=== PATIENT | female | born 1960 | race Caucasian/White ===

== ENCOUNTER → 2017-12-16 15:11 | Outpatient (CLI) | payer BC, SELFPAY ==
[2017-12-24 10:52] LABS: HPV APTIMA, High Risk Negative (Negative)
== END ==
PROVIDERS: Family Provider Student in an Organized Health Care Education/Training Program; PCP Student in an Organized Health Care Education/Training Program; Visit Provider Nurse Practitioner Women's Health
DX: Z12.4 Encounter for screening for malignant neoplasm of cervix (principal)
CPT/HCPCS: 88175; G0145

== ENCOUNTER → 2018-02-01 09:40 | Outpatient (CLI) | payer BC, SELFPAY ==
[2018-02-01 17:16] LABS: Color, Urine Yellow (Yellow); Glucose, Dipstick Normal (Normal); Ketone-Dipstick Negative (Negative); Leukocyte Esterase-Dipstick 500 /ul (Negative); Nitrite-Dipstick Positive (Negative); Occult Blood-Urine Negative /ul (Negative); Protein-Dipstick Negative (Negative); Urine Bilirubin Dipstick Negative (Negative); Urine Clarity Sl. Cloudy (Clear); Urine Urobilinogen Normal (Normal)
== END ==
PROVIDERS: Family Provider Student in an Organized Health Care Education/Training Program; PCP Student in an Organized Health Care Education/Training Program; Visit Provider Nurse Practitioner Women's Health
DX: R30.0 Dysuria (principal)
CPT/HCPCS: 81002; 87086; 87088

== ENCOUNTER → 2019-09-02 15:55 | Outpatient (CLI) | payer BC, SELFPAY ==
--- NOTE | 2019-09-02 | IMM_PTH ---
PATIENT: DOREEN ZAIDI LOC: [facility] U#:[id number] AGE/SX: 65/F ROOM: RE09/02/[address]: Dr. Gallo Arceo MD : 1960 BED: DIS: SPEC #: [id number] RECD: 09/06/19 11:33 STATUS: CLEMENTE REQ #: [id number] BOB: 09/02/19 00:[address]: Gallo Arceo DEPT: IMMUNOHISTOCHEMISTRY RECD BY: Trena Woodard ENTERED: 09/06/19 11:34 SP TYPE: IMMUNO OTHR DR: Dr. Ham Martinez DO Tissues: Right breast, NOS Procedures: CALPONIN-1 (add) CK5-6 (add) CK8 (add) STERN-2 (add) E-CAD (add) HER2 DELMY (add) KI-67 (add) P53 (add) PA (add) P40 (add) ER (initial) PHYSICIAN & INSTITUTION [address] [address] SPECIMEN INFORMATION: Tissue Source: Right breast, ultrasound guided needle core biopsy Clinical Info: Abnormal mammogram right breast Specimen Number: [id number] CPT code: 37112, 60319 x7, 06216 x3 METHODOLOGY: Deparaffinized sections of prefer/formalin-fixed tissue or PAP/DQ stained slides are incubated with monoclonal/polyclonal antibodies/oligonucleotide probes. Localization is made via biotin free immunoperoxidase method. Appropriate controls are performed and reacted as expected. Results on target cell population are indicated in the following table: RESULTS: ANTIBODY / CLONE RESULT P53 (DO-7) positive, >95% Ki-67 (30-9) positive, 90% CK8 (15kryaR60) positive CK5-6 (D5 & 1684) positive, focal Calponin-1 (EW038F) negative P40 (BC28) negative E-Cad (ECH-6) positive STERN-2 (SP21) positive MORPHOMETRIC ANALYSIS ER (clone 6F11) 4% dim PA (clone 16/1E2) 0% Her-2Neu (clone CB11) 0 The prognostic test for HER2 is performed on formalin-fixed paraffin embedded tissue. A 3+ (positive) staining pattern is defined as intense, homogeneous, complete, circumferential membranous staining in >10% of contiguous tumor cells. A similar weak (2+) staining pattern is interpreted as equivocal. LES follow-up testing is recommended for all equivocal cases. Positivity/negativity for ER/PA is reported if > or < 1% of the tumor cells are immuno- reactive, respectively. The ASCO/CAP criteria is used for scoring. Reference: Journal of Clinical Oncology, 2013; 31:5646-2109 & 2010; 16:6830-7899. Duration of fixation: 76.5 Hrs; Sample Adequate: Yes. These assays have not been validated on decalcified tissues. Results should be interpreted with caution given the likelihood of false negativity on decalcified specimens. These tests were developed and their performance characteristics determined by [facility]. They may not have been cleared or approved by the U.S. Food and Drug Administration. The FDA has determined that such clearance or approval is not necessary. The above immunohistochemical/dualISH markers are ordered and reviewed by the Pathologist. 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 Positive for estrogen receptors (favorable prognostic indicator). Negative for progesterone receptors (unfavorable prognostic indicator). Negative for overexpression of WAS7cps. AM:berta 09/07/19
--- NOTE | 2019-09-02 | BRBX_PTH ---
PATIENT: DOREEN ZAIDI LOC: [facility] U#:[id number] AGE/SX: 65/F ROOM: RE09/02/[address]: Dr. Gallo Arceo MD : 1960 BED: DIS: SPEC #: [id number] RECD: 09/02/19 15:35 STATUS: CLEMENTE GAYLE #: [id number] BOB: 09/02/19 00:[address]: Gallo Arceo DEPT: SURGICAL PATHOLOGY RECD BY: Carlyn Parker ENTERED: 09/05/19 12:09 SP TYPE: BREAST BX OTHR DR: Dr. Ham Martinez DO Tissues: Right breast, NOS Procedures: Surgery Specimen Level IV HEADER OPERATION: Ultrasound-guided needle core biopsy right breast PRE-OP DIAGNOSIS: Abnormal mammogram right breast TISSUE SUBMITTED: Right breast biopsy ISCHEMIC TIME: <1 minute FIXATION TIME: 76.5 hours MICROSCOPIC DIAGNOSIS Right breast, ultrasound-guided needle core biopsy: Invasive ductal carcinoma. Nuclear grade - 3/3 Maximal length - 13 mm Other findings - tumor necrosis AM:berta 09/06/19 COMMENT ER/AZ/Bsb9qhk studies are being performed on sections of tumor and the results from this study will be reported separately ([id number]). Reference is made to the patient's previous right breast lumpectomy from 2004 ([id number]) in which invasive, grade 3/3, poorly differentiated ductal carcinoma was identified. Case has been reviewed in consultation with Dr. Rain who concurs with the above diagnosis. IDC:SJ MICROSCOPIC DESCRIPTION Slides are reviewed. GROSS DESCRIPTION Received is one container labeled with the patient's name and not further designated. The specimen consists of two elongated fragments of hoffmann tissue with an average length of 1.5 cm and maximal diameter of 0.1 cm. The specimen is totally submitted in one cassette. / AM:berta 09/05/19 TC:0 CPT: 96400
[2019-09-02 14:41] VITALS: BMI 27.8
== END ==
PROVIDERS: PCP Student in an Organized Health Care Education/Training Program; Referring Provider Surgery; Visit Provider Surgery
DX: R92.8 Other abnormal and inconclusive findings on diagnostic imaging of breast (principal)
CPT/HCPCS: 88305; 88341; 88342

== ENCOUNTER → 2019-09-19 10:13 | Outpatient (CLI) | payer BC, SELFPAY ==
[2019-09-02 14:41] VITALS: BMI 27.8
--- NOTE | 2019-09-19 10:15 | MRI_ITS ---
STUDY: BILATERAL BREAST MR WITHOUT AND WITH CONTRAST REASON FOR EXAM: Female, 59 years old. RIGHT BREAST CA -- hx rt breast ca 2004 with lumpectomy, now reoccurring breast ca, rt bx 08/2019 TECHNIQUE: Multi-sequence multi-echo imaging of both breasts was performed with a dedicated breast coil. T1-weighted and T2-weighted images were performed before the administration of contrast. T1-weighted images were also performed after the administration of IV dotarem 14ml without complications. COMPARISON: Mammograms dated 05/24/2018, 04/20/2019 and breast ultrasound dated 04/20/2019, 05/24/2019 and 08/24/2019 FINDINGS: RIGHT BREAST: The breast tissue is scattered fibroglandular densities with no background enhancement. There is a 2.5 cm abnormal enhancing mass in the superior outer aspect of the right breast located approximately 6 cm from the nipple. This does correlate to the area that was biopsied and shown to represent a malignancy. No other abnormal enhancing or abnormal morphologically appearing masses are seen in the right breast. LEFT BREAST: The breast tissue is heterogeneously dense with no background enhancement. There are no abnormal enhancing masses or areas of non-mass enhancement in the left breast. There are no enlarged or abnormal lymph nodes. There is no abnormality in the visualized regions of the chest or liver. MRI/Breast Bilateral W/O and W IMPRESSION: There is a known malignancy in the right breast. Surgical consultation is recommended as well as radiation oncology and medical oncology consultation. Short-term six-month follow-up mammogram is recommended if the patient and the surgeon opt to do a lumpectomy. CATEGORY: BIRADS Category 6: Known Biopsy-Proven Malignancy - Appropriate Action Should Be Taken. A letter regarding these results will be sent to the patient by the facility within 30 days. Electronically Signed: Radha Roberto DO at 13:17 EST Tel , Service support ,
== END ==
PROVIDERS: PCP Student in an Organized Health Care Education/Training Program; Referring Provider Surgery; Visit Provider Surgery
DX: C50.911 Malignant neoplasm of unspecified site of right female breast (principal)
CPT/HCPCS: 77049; A9575; A4216; C8908

== ENCOUNTER 2019-10-11 13:10 | Observation (INO) | payer BC, SELFPAY ==
[2019-09-27 15:21] VITALS: BMI 27.8
[2019-10-05 09:51] VITALS: BMI 27.8
--- NOTE | 2019-10-07 13:20 | RAD_ITS ---
STUDY: X-RAY CHEST REASON FOR EXAM: Female, 59 years old. pre operative eval, patient having right mastectomy, Hx radiation therapy years ago on right side of chest. Patient has no current chest complaints TECHNIQUE: PA and lateral views of the chest. COMPARISON: None. FINDINGS: The lungs are clear and expanded. There is no demonstrated pleural abnormality. Normal size heart. Normal mediastinum and sonny. Normal visualized pulmonary arteries. There is atherosclerotic calcification of the aortic arch with tortuosity. Normal visualized thoracic spine. Normal visualized ribs, clavicles, and shoulders. There is no demonstrated abnormality of the visualized soft tissue structures of the upper abdomen. RAD/Chest PA and Lateral IMPRESSION: Normal x-ray examination of the chest for age. Electronically Signed: Krystin Moreno MD at 1:39 EDT , Service support ,
--- NOTE | 2019-10-07 13:21 | EKG12_ITS ---
Test Reason : PREOP Blood Pressure : / mmHG Vent. Rate : 064 BPM Atrial Rate : 064 BPM P-R Int : 168 ms QRS Dur : 092 ms QT Int : 406 ms P-R-T Axes : 044 013 004 degrees QTc Int : 418 ms Normal sinus rhythm Normal ECG Confirmed by KRISTIN DIAZ, LILY ([id number]), acquisition editor VINNY SOUZA ([id number]) on 10/10/2019 1:53:08 PM Referred By: Gallo Arceo Confirmed By:CATHERINE FOSTER MD
[2019-10-07 15:23] LABS: Hematocrit 40.1 % (37-47); Mean Corp Hgb Conc 32.4 g/dL (32-36); Mean Corpuscular Hgb 29.7 pg (27.0-32.0); Mean Corpuscular Volume 91.6 fL (81-99); Platelet Count 177 K/mm3 (150-450); RBC Distribution Width CV 12.4 % (11.6-14.6); RBC Distribution Width SD 41.5 fl (35.1-43.9); Red Blood Count 4.38 M/mm3 (4.2-5.4); White Blood Count 4.9 K/mm3 (4.4-11.0)
[2019-10-07 15:24] LABS: AST(SGOT) 19 U/L (15-37); Albumin, Serum 3.9 g/dL (3.2-5.0); Alkaline Phosphatase 75 U/L (45-117); Globulin 3.7 g/dL (2.2-4.2); Protein, Total 7.6 g/dL (6.4-8.2)
[2019-10-07 15:25] LABS: Alanine Aminotransfer ALT/SGPT 35 U/L (13-56); Bilirubin, Direct 0.12 mg/dL (0.00-0.30)
[2019-10-07 15:29] LABS: Partial Thromboplast Time 27.1 Seconds (24.1-36.2)
[2019-10-11] VITALS (12 sets, daily range): BP systolic 108–141; BP diastolic 68–89; PULSE 59–102; RESP 14–18; TEMP 36.3–37.2; O2SAT 96–100; BMI 27.6
--- NOTE | 2019-10-11 | IMM_PTH ---
PATIENT: DOREEN ZAIDI LOC: [facility] U#:[id number] AGE/SX: 59/F ROOM: MS315 RE10/11/[address]: Dr. Gallo Arceo MD : 1960 BED: 1 DIS: 10/12/2019 SPEC #: [id number] RECD: 10/14/19 12:44 STATUS: SOUT REQ #: [id number] BOB: 10/11/19 00:[address]: Gallo Arceo DEPT: IMMUNOHISTOCHEMISTRY RECD BY: Trena Woodard ENTERED: 10/14/19 12:45 SP TYPE: IMMUNO OTHR DR: DO Dr. Hood Huang MD Tissues: A - Axillary lymph node, NOS Procedures: CK7 (add) Pankeratin (initial) Pankeratin (add) PHYSICIAN & INSTITUTION [place] [address] SPECIMEN INFORMATION: Tissue Source: A - Right axillary sentinel lymph nodes Clinical Info: Recurrent cancer right breast Specimen Number: [id number] A1-A5 CPT code: 57555, 14643 x9 METHODOLOGY: Deparaffinized sections of prefer/formalin-fixed tissue or PAP/DQ stained slides are incubated with monoclonal/polyclonal antibodies/oligonucleotide probes. Localization is made via biotin free immunoperoxidase method. Appropriate controls are performed and reacted as expected. Results on target cell population are indicated in the following table: RESULTS: ANTIBODY / CLONE RESULT Block A1 AE1-3 (AE1/AE3/PCK26) negative CK7 (OV-TL12/30) negative Block A2 AE1-3 (AE1/AE3/PCK26) negative CK7 (OV-TL12/30) negative Block A3 AE1-3 (AE1/AE3/PCK26) negative CK7 (OV-TL12/30) negative Block A4 AE1-3 (AE1/AE3/PCK26) negative CK7 (OV-TL12/30) negative Block A5 AE1-3 (AE1/AE3/PCK26) negative CK7 (OV-TL12/30) negative These tests were developed and their performance characteristics determined by [facility]. They may not have been cleared or approved by the U.S. Food and Drug Administration. The FDA has determined that such clearance or approval is not necessary. The above immunohistochemical/dualISH markers are ordered and reviewed by the Pathologist. INTERPRETATION: A. Right axillary sentinel lymph nodes, biopsy: Three out of three lymph nodes, negative for carcinoma. AM:berta 10/17/19
--- NOTE | 2019-10-11 | AXNB_PTH ---
PATIENT: DOREEN ZAIDI LOC: [facility] U#:[id number] AGE/SX: 59/F ROOM: MS315 RE10/11/[address]: Dr. Gallo Arceo MD : 1960 BED: 1 DIS: 10/12/2019 SPEC #: [id number] RECD: 10/11/19 11:09 STATUS: CLEMENTE REMarybel #: [id number] BOB: 10/11/19 00:[address]: Gallo Arceo DEPT: SURGICAL PATHOLOGY RECD BY: Trena Woodard ENTERED: 10/11/19 11:31 SP TYPE: AX NODE BX OTHR DR: DO Dr. Hood Huang MD Tissues: A - Axillary lymph node, NOS B - Right breast, NOS Procedures: Frozen Section (charge) Surgery Specimen Level V Surgery Specimen Level HEADER OPERATION: Modified radical mastectomy and radiotracer identification PRE-OP DIAGNOSIS: Recurrent cancer of right breast C50.911 TISSUE SUBMITTED: A - Right axillary lymph nodes frozen section at 1101, B - Right breast FROZEN SECTION DIAGNOSIS A. Right axillary sentinel lymph nodes, biopsy: Two out of two lymph nodes negative for carcinoma. AM:berta 10/11/19 Case has been reviewed in consultation with Dr. Rain who concurs with the above diagnosis. IDC:SJ MICROSCOPIC DIAGNOSIS A. Right axillary sentinel lymph nodes, biopsy: Three out of three lymph nodes, negative for metastatic carcinoma. B. Right breast, mastectomy: Invasive poorly differentiated ductal carcinoma. See cancer check list below. AM:berta 10/17/19 COMMENT INVASIVE BREAST CANCER SUMMARY: Procedure: Mastectomy Specimen: Type: Total breast Size: 17 x 15 x 5 cm Laterality: Right breast Invasive Tumor: Size of tumor: 2.5 x 2 x 2 cm Focality: Single focus of invasive tumor Histologic type: Invasive ductal carcinoma. Histologic grade (Sri grade): Glandular/tubular differentiation score: 3 Nuclear pleomorphism score: 3 Mitotic count score: 3 Overall grade: 3 (score of 9/9) Lymph-vascular invasion: Not identified Ductal Carcinoma In Situ: Not identified Lobular Carcinoma In Situ: Not identified Tumor extension: Skin: Free of carcinoma Nipple: Free of carcinoma Skeletal muscle: Free of carcinoma Margins Involved by Invasive Carcinoma: None Distance from closest margin: 1.5 mm from superior margin Margins Involved by In Situ Carcinoma: Not applicable Lymph Nodes: Number of sentinel lymph nodes examined: 3 Total number of lymph nodes examined: 10 One non-sentinel lymph node with macrometastatic carcinoma (2.1 cm in greatest dimension). No extranodal extension identified. See specimen A for sentinel lymph nodes. Microcalcifications: Not identified Treatment Effect: Unknown Additional Pathologic Findings: Extensive tumor necrosis Ancillary Studies: Previously performed on same tumor ([id number]) ER: positive (4%, dim) CO: negative (0%) Nqh3vxr: negative (0) Clinical History: Mass of breast Pathologic Stage: pT2 N1a Mx The above summary is in compliance with [employer] [place] [employer] (CAP) Cancer Protocols Checklist and [place] Joint Committee on Cancer (AJCC), Staging Manual, 8th Ed. MICROSCOPIC DESCRIPTION Slides are reviewed. GROSS DESCRIPTION A - Received fresh for frozen section diagnosis labeled with the patient's name is a specimen designated right axillary sentinel lymph node. The specimen consists of a piece of fibroadipose tissue measuring 6 x 6 x 1.5 cm. Two nodules consistent with lymph nodes are identified and one possible lymph node is also identified measuring 1 to 3 cm in greatest dimension. The lymph nodes are submitted for frozen section diagnosis as follows: 1 & 2 - one bisected lymph node, 3 & 4 - one bisected lymph node, 5 - one possible lymph node. / SJ:berta 10/11/19 B - Received in fixative is one container labeled with the patient's name and designated right breast. The specimen consists of a mastectomy specimen consisting of breast tissue with overlying skin including nipple and areolar complex. The breast tissue measures 17 x 15 x 5 cm. The skin ellipse measures 17 x 8 cm. The nipple measures 1 cm in greatest dimension. The specimen is inked as follows: superior - black, inferior - green, medial - red, lateral - orange and posterior - blue. Also present in the container are three pieces of fibroadipose tissue measuring in aggregate 5 x 7 x 2 cm. Sections of the breast tissue reveal a hoffmann, nodular mass in the upper outer quadrant measuring 2.5 x 2 x 2 cm. This mass is 0.2 cm away from the closest superior margin and 0.5 cm away from the second closest posterior margin. Sections of the tumor mass reveal it is 0.5 cm away from the overlying skin piece. / SJ:berta 10/11/19 Three detached pieces of tissue, one of them appears to consist of breast tissue which measures in aggregate 5 x 4 x 2 cm. Sections do not reveal any mass lesion. According to the surgeon, one piece consists of new superior margin. The two detached piece appears to consist of axillary tail and measures 5 x 3.5 x 1 cm. Sections of the axillary tail reveal multiple nodules consistent with lymph nodes. The largest lymph node measures 1 cm in greatest dimension. Sections of the largest lymph node reveal gross involvement by tumor. Communications Manager sections are submitted as follows: 1 - detached pieces of tissue consistent with new superior margin, 2 & 3 - multiple lymph nodes, 4 - one bisected lymph node, 5??axillary tail, one bisected lymph node, largest lymph node, 5 - multiple lymph nodes, 6 - nipple, entirely submitted, 7 - perpendicular inferior and posterior margin, 8 - perpendicular medial and lateral margin, 912 - tumor (9 - tumor with overlying skin piece, 10-12 - tumor with closest superior margin, 1315 - registration representative sections away from the tumor. Sections will be submitted after additional fixation. / SJ:berta 10/12/19 TC:0 CPT: 95245, 64026, 83264
--- NOTE | 2019-10-11 07:25 | NM_ITS ---
PROCEDURE: NUCLEAR MEDICINE Injection [place] Node - RIGHT breast(s). REASON FOR EXAM: Female, 59 years old. History of right breast cancer. TECHNIQUE: [place] node localization using radionuclide methods of the RIGHT breast(s) was performed following subcutaneous administration of 1.1 mCi of of sulfur colloid Tc-99m. FINDINGS: 1.1 mCi of technetium labeled sulfur colloid was injected subcutaneously in 4 equal aliquots in the upper outer aspect of the right breast. NM/Lymph Node Injection Only IMPRESSION: Subcutaneous injection of 1.1 mCi of technetium labeled sulfur colloid in the upper outer quadrant of the right breast for sentinel node imaging. Electronically Signed: Jr Lynne, at 11:01 EDT , Service support ,
[2019-10-11 07:45] LABS: Magnesium 2.3 mg/dL (1.6-2.6)
[2019-10-11] MEDS: Lactated Ringers 1,000 ML 40 ML IV ×2 (08:03→13:19)
[2019-10-11] MEDS: Gabapentin 600 MG Tablet PO (08:05)
[2019-10-11] MEDS: Scopolamine 1mg/72hr Patch 1 PATCH TRANSDERM. (08:05)
[2019-10-11] MEDS: Acetaminophen 500 MG Tablet 1000 MG PO (08:05)
[2019-10-11 08:56] LABS: Bedside Glucose 73 mg/dL (70-110)
--- NOTE | 2019-10-11 09:35 | HP.PCM_ITS ---
History and Physical Date of Admission: 10/11/19 [facility] [address] [place] [address] OFFICE VISIT Date of Service: 09/23/19 MR#: [id number] Acct: [id number] Name: DOREEN ZAIDI Rep #: [id number] : 1960 Provider: Gallo hammond MD Age/Sex: 59/F Location: [facility] Status: Signed Intake Vital Signs 09/25/19 BMI 27.8 09/23/19 Height 5 ft 4.5 in 09/23/19 Weight: 158 lb 09/23/19 BMI 26.6 09/23/19 BP 143/88 H 09/23/19 Blood Pressure Location Rt brachial 09/23/19 Position Sitting 09/23/19 Respiration 18 09/23/19 Pulse 70 09/23/19 Pulse Source Monitor 09/23/19 Temp 98.5 F 09/23/19 Temp Source Oral 09/23/19 Pulse Oximetry (%) 99 09/23/19 Oxygen Delivery Method room air Intake Visit Reasons: Discuss Breast MRI results/ Schedule Surgery Apprise Counselor Required: No Is patient in pain?: No Allergies adhesive Allergy (Verified 09/23/19 10:46) Rash Penicillins Allergy (Verified 09/23/19 10:46) Unknown nitrofurantoin [From Macrobid] Adverse Reaction (Verified 09/23/19 10:46) Other nitrofurantoin macrocrystalline [From Macrobid] Adverse Reaction (Verified 09/23/19 10:46) Other Medications krill oil 500 mg capsule mg PO cap 12/21/18 [History Confirmed 09/23/19] lactobacillus combination no.8 3 billion cell capsule 3,000 mmu cells PO DAILY 12/21/18 [History Confirmed 09/23/19] calcium carbonate 500 mg calcium (1,250 mg) tablet 500 mg PO DAILY 08/31/19 [History Confirmed 09/23/19] clonazepam 0.5 mg tablet 0.5 mg PO DAILY PRN 08/31/19 [History Confirmed 09/23/19] sertraline 50 mg tablet 50 mg PO DAILY 08/31/19 [History Confirmed 09/23/19] lorazepam 2 mg tablet 2 mg PO DAILY PRN #1 tab 09/08/19 [Rx Confirmed 09/23/19] PFSH Medical History Anemia (Acute) Anxiety (Acute) Depression (Acute) Hx of breast cancer (Acute) Breast cancer (Acute) Surgical History Hx of right breast biopsy (Acute) S/P oophorectomy (Resolved) S/P dilation and curettage (Resolved) Status post right breast lumpectomy (Resolved) S/P (Resolved) Family History Sister Melanoma Father Myocardial infarction Asthma Social History (Updated 09/25/19 @ 09:[address] 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 Patient is status post an ultrasound-guided needle core biopsy of her right breast which was located in the upper outer quadrant. This was completed on 09/02/2019. This came back as an invasive ductal carcinoma. ER's were 4% MO were 0 HER-2/johanna was 0. The MRI showed a 2.5 cm enhancing mass in the upper outer quadrant of her breast which was biopsied to confirm the breast cancer. There was no other lymph nodes that looked abnormal and her liver look normal and her chest looked normal. There was no other abnormalities identified on the other side. ROS General General: Yes breast cancer; no weight change, appetite, fatigue, colon cancer or weakness HEENT HEENT: No difficulty swallowing, eye injury, eye surgery, swollen glands or hoarseness Endo Endocrine: No thyroid disease, diabetes mellitus, thyroid cancer, Hair loss, heat intolerance or cold intolerance Skin Skin: No rash or changing moles Breast Breast: Yes right breast lump, breast pain, abnormal mammogram and abnormal US; no left breast lump, nipple discharge or breast enlargement Musc Musculoskeletal: No back problems, arthritis, rheumatoid arthritis, gout or joint pain Cardio Cardiovascular: No murmur, pacemaker, heart disease, atrial fibrillation, high blood pressure, heart attack, heart stent, palpitations, shortness of breat with exertion or chest pain Psych Psychiatric: Yes depression and anxiety; no hearing voices Resp Respiratory: No shortness of breath, No sleep apnea, No cough, No COPD, No asthma, No emphysema, No wheezing Gastro Gastrointestinal: No abdominal pain, No nausea or vomiting, No diarrhea, No constipation, No blood in stool, No acid reflux, No hemorrhoids, No ulcers, No gallbladder problem, No black,tarry stools Rodrick Hematologic: Yes blood thinners, No blood disorders, No bleeding, Yes anemia, No blood clots Neuro Neurologic: No weakness Exam Const General: no acute distress, well developed, well hydrated Orientation: oriented to person, oriented to place, oriented to time [facility] Head: normocephalic, atraumatic Ears: external ears normal Mouth: moist mucous membranes Eyes Sclera: sclerae normal Pupils: normal by confrontation Neck Neck: no lymphadenopathy noted Neck mass: No Thyroid: thyroid normal, symmetrical Chest Chest palpation & inspection: normal inspection of the chest Breast inspection: normal inspection of the breasts Breast Palpation: No nipple discharge Other: Palpation of the right breast reveals Minimal bruising is identified in the upper outer quadrant. Palpation of the left breast reveals Normal exam. Axillary exam demonstrates no suspicious masses in either the left or right axilla. Resp Effort & Inspection: normal respiratory effort Auscultation: clear to auscultation bilaterally Percussion: percussion normal Cardio Rate: regular rate Rhythm: regular rhythm Heart Sounds: no murmurs GI Palpation: soft, no hepatosplenomegaly, no masses, nontender Rectal Exam: other Other: Rectal exam deferred. Extrem General: normal to inspection, no clubbing, cyanosis or edema Assessment & Plan Problems 1. Recurrent cancer of right breast C50.911 Plan My plan is to do a mastectomy with sentinel lymph node biopsy on the right side. Patient is interested in reconstruction and I am going to obtain a consultation from plastics prior to surgery. I have given the patient options for initial surgical treatment. Options are the following: . mastectomy vs. mastectomy followed by immediate reconstruction. I have described the procedures to the patient. I have described the advantages and disadvantages of the options, but I have told the patient that among the options, the survival rate for breast cancer is the same. I have told the patient that with all the surgeries that a sentinel lymph node biopsy is required. I have described the procedure of sentinel lymph node biopsy to the patient. I have told the patient that if the biopsy is positive for metastatic disease, then a full axillary lymph node dissection is required. I have told the patient that adjuvant chemotherapy will be required should the lymph nodes reveal metastatic disease. Also, a full lymph node dissection will increase the risk for lymphedema, especially if there are 4 or more lymph nodes positive for metastatic disease and radiation to the axilla is also required. I have told the patient the risks of surgery, including but not limited to: infection, bleeding, scar tissue, seroma and persistent seroma, lymph leak, injury to any blood vessels, injury to any nerves (particularly the long thoracic, the thoracodorsal, and the second intercostal brachial and the resultant sequelae), lymphedema, cosmetic deformity, dysesthesias, wound infections, further surgery (especially if margins are not clear), complications of anesthesia, etc. the patient understands. The patient will think about the options and discuss it further with the family. The patient will contact me in the next few days when she decides what the patient wishes to do. I have answered all the patient?s questions at this point to her satisfaction and she has no further questions. Orders Referrals: Plastic surgery Z85.3 Coding Level of Care Code Off vis,est,level 3 Diagnoses Recurrent cancer of right breast C50.911 09/25/19 0941 <Electronically signed by Gallo rubio MD> Date _ Gallo Arceo MD Cosigner Signature: Date (if applicable) CC: Hood Delgado MD; Ham Parham DO; Freddy Lopez DO ~ I have re-examined the patient. There are no clinical changes since date of exam.
[2019-10-11] MEDS: Lidocaine/D5W 2,000 MG/250 ML IV.SOLN 2000 MG (10:02)
[2019-10-11] MEDS: Isosulfan Blue 1% 5 ML Vial OPERA.SITE (10:05)
[2019-10-11] MEDS: Bupivacaine Mpf 0.5% 30 ML VIAL (10:15)
--- NOTE | 2019-10-11 11:18 | OP.PCM_ITS ---
Problem List (1) Recurrent cancer of right breast Status: Acute Report of Operation Date of Procedure: 10/11/19 Pre-Operative Diagnosis: Recurrent right breast cancer female Post-Operative Diagnosis: Same Surgery/Procedure Performed:: 1. Injection of 4 cc of Lymphazurin blue. 2. Right modified radical mastectomy Type of Anesthesia:: General Anesthesiologist: Cooper Dais Specimen's removed: Right breast and axillary contents Drains: two # 15 round Nigel-Sanabria Estimated Blood Loss (mL): 100 cc Fluids Replaced: 800 cc LR Description of Procedure: Patient was brought into the operating room. Placed in the supine position. Right nipple area was injected with 4 cc of Lymphazurin blue and massaged for 5 minutes the right breast and axillary area were then sterilely prepped draped in usual fashion. Elliptical incision was made I encompass my previous incision in the right upper quadrant with this tumor was inferior to this I used the plasma blade and Andersons and created flaps medially towards the sternum inferiorly towards the rectus abdominis muscle superiorly to the clavicle and laterally to the latissimus dorsi. I remove the breast off of the pectoralis fascia with the use of the plasma blade small perforating vessels were clipped with medium clips. Towards the area where the tumor was I try to make sure that I got at least a little muscle to make sure that there was nothing invading into the muscle. It did not appear to be the case. I transected the breast and removed it in its entirety. I then went into the axillary area and this was a very tedious and difficult dissection patient had a previous axillary node dissection and as I come down I see no blue lymphatics no blue lymph nodes and my neoprobe does not show any tissue lighting up. I took some tissue in zone 1 and zone 2 out I felt a very hard lymph node I removed it I was able to spare the intercostal brachial's and I did not get deep enough to touch the long thoracic at thoracodorsal nerves nor did I feel comfortable trying to dissect in that area given the fact that it was so densely adherent soft tissue. I had good pneumostasis I irrigated out the chest and axillary area with water. Two 15 round Nigel-Sanabria drains were placed laterally and into the area. They were sutured to the skin with 3-0 nylon's. The skin was then brought together with deep dermal stitches of 3-0 Vicryl then a running 4-0 Monocryl. Steri- Strips were applied sterile dressings were applied Mickey wrap was applied and the patient tolerated the procedure well. - Admit VTE Documentation VTE Present on Admission: No VTE Mechan Device Prophylaxis: SCD's VTE Pharm Prophylaxis ordered?: No Reason prophylaxis not ordered:: Treatment Not Indicated
[2019-10-11] MEDS: oxyCODONE 5 MG Tablet PO ×2 (17:16→21:27)
[2019-10-12 01:18] VITALS: BP 116/69; PULSE 57; RESP 16; TEMP 37; O2SAT 97
[2019-10-12] MEDS: oxyCODONE 5 MG Tablet PO ×3 (01:23→11:14)
[2019-10-12 07:30] VITALS: O2SAT 95
[2019-10-12] MEDS: Sertraline 50 MG Tablet PO (08:43)
[2019-10-12 08:45] VITALS: BP 110/66; PULSE 67; RESP 16; TEMP 36.8; O2SAT 96
--- NOTE | 2019-10-12 10:15 | DCINST_ITS ---
Discharge Diet: No Restrictions Discharge Activity: May Not Drive - for 7 days or while taking narcotic pain meds. May shower in (days): 1 Lifting Restrictions: 10 pounds for 4 weeks. Call your doctor if your incision/area has: Continuous Slow Oozing, Sudden Inc reased Bleeding Call your doctor if you observe: Fever of 101 or Higher Suture Line Care: Avoid Pulling/Pushing, Avoid Pinching/Bending Additional Dressing/Incision Instructions:: Remove bulky dressing tomorrow. May leave any opsite dressing for 3-4 days. Keep dressing in place until your follow-up appointment. Additional Instructions: Exercises following breast surgery The following stretching exercises should be done two (2) to three (3) repetitions three times during the day to ensure you regain the mobility of the shoulder you had prior to surgery. Begin these stretching exercises the day after surgery. Arm Lifts This is the most important exercise for you to do. While standing (or sitting on the edge of a chair), lift both arms directly over your head. Your goal is to have your elbows touching your ears. Some find it helpful to do this exercise while looking in a mirror. Arm swings While standing, swing both arms back and forth from the shoulder (like the pendulum of a clock). Attempt to keep the elbows stiff. Increase the distance of the swing each time. Wall climbing Stand facing a wall with feet close to the wall. Climb the fingertips of both hands up the wall then creep them down again. Attempt to go a little higher each time. If you will be having post-operative radiation therapy following your breast surgery, you will be instructed in an additional way to do this exercise. It is important to keep the rest of your body active. Deep breaths and coughing is necessary after surgery. You may use stairs and ride in a car. Most people may drive seven days after surgery. Shaving, etc. Be careful when shaving under the arm or putting on deodorant. It is a good idea to look in the mirror while doing either, this is to prevent irritating the incision. Blood draws, injections: It is preferred that you have blood drawn or have an injection in the operative arm. THIS IS A PRECAUTIONARY MEASURE. If it is necessary for you to have blood drawn using this arm, mention that you have had breast surgery and have had lymph nodes removed. Two weeks after surgery you will notice some changes: You may feel discomfort in the armpit and/or down the arm. This is the beginning of the inner tissue healing and discomfort at this time is normal. Increase your exercise routine and take mild pain medication (Tylenol or acetaminophen). Warm showers may also provide discomfort. At this time you may notice the incision feels thick and lumpy. this is part of the normal healing process. The scar tissue can be softened by massaging the area with a mild lotion containing Vitamin E or pure Lanolin. These products may be purchased in Drug or Discount or Health food store. After several weeks, the scar will soften. Stay away from highly perfumed lotions as the alcohol in them may irritate the skin. If you are having post-operative radiation, do not apply anything to your skin without first consulting with your Radiation Oncologist. Swelling: If you should develop any swelling (collection of fluid) in your arm, hand, near the incision or under your arm, please contact your surgeon. Sometimes, elevating the entire arm on pillows (higher than the level of your heart) will reduce some of the swelling. Do not sleep on your surgical side. This places the area in a dependent position and increases swelling of the breast and chest wall. A small amount of swelling of the breast, chest wall and armpit is normal for the first month after surgery. Going home with a drain: Patients who have undergone breast surgery are sometimes discharged with an external drainage device. The care, emptying and recording of the drainage will be demonstrated to you during your teaching session with the nurse prior to discharge. If you develop a fever over 101 degrees F, increased drainage (more than 240 cc's/8 ounces) over a 24 hour period or increased pain not controlled by the pain medication, please call your doctor's office. The amount of fluid that is drained over a 24 hour period will gradually decrease. The color may change from posadas red, to red-orange, to straw color. When you return for your post-operative visit four to seven days after surgery it is usually time to remove the drain. Allergies/Adverse Reactions: Allergies adhesive Allergy (Verified 10/11/19 07:37) Rash Penicillins Allergy (Verified 10/11/19 07:37) Unknown nitrofurantoin [From Macrobid] Adverse Reaction (Verified 10/11/19 07:37) Other nitrofurantoin macrocrystalline [From Macrobid] Adverse Reaction (Verified 10/11/19 07:37) Other Medications to take at Discharge krill oil 500 mg capsule 500 mg PO DAILY cap 12/21/18 lactobacillus combination no.8 3 billion cell capsule 3,000 mmu cells PO DAILY 12/21/18 calcium carbonate 500 mg calcium (1,250 mg) tablet 500 mg PO DAILY 08/31/19 clonazepam 0.5 mg tablet 0.5 mg PO DAILY PRN 08/31/19 sertraline 50 mg tablet 50 mg PO DAILY 08/31/19 diazepam 5 mg tablet 5 mg PO TID PRN #20 tab 09/27/19 Oxycodone [Oxyir] 5 mg PO Q6H PRN PRN 6 Days #20 tab 10/12/19 The following prescriptions were given: Oxycodone [Oxyir] 5 mg PO Q6H PRN PRN 6 Days #20 tab PRN Reason: Pain Score 1-10/10 Transmission Status: Received by [facility] Primary Care Physician: Ham Martinez DO [Primary Care Provider] - Please Follow Up With: Gallo Arceo MD - [phone] When: Thursday; 10/18 at 0815 AM Proposed Discharge Date: 10/12/19
--- NOTE | 2019-10-12 10:44 | PCM.PN.SRG ---
Subjective: Patient evaluated resting comfortably in bed. She denies nausea, vomiting, fever. She had vision changes last night which have resolved this morning. Her pain is well controlled. She has minimal amount of discomfort. - Physical Exam Vitals/I&O's: Vital Signs Temp Pulse Resp BP Pulse Ox 98.3 F 67 16 110/66 96 10/12/19 08:45 10/12/19 08:45 10/12/19 08:45 10/12/19 08:45 10/12/19 08:45 Oxygen Flow Rate (L/min) 6 Oxygen Delivery Method Room Air Weight: 161 lb 2.526 oz Body Mass Index (BMI) 27.6 Intake and Output for Last 24 Hours 10/10/19 10/11/19 10/12/19 23:59 23:59 23:59 Intake Total 460.37 / 460.37 600 / 600 Output Total 197 / 197 1100 / 1100 Balance 263.37 / 263.37 -500 / -500 General: Alert, Oriented x3, Cooperative Skin: Incision - Right chest- incision c/d/i. No erythema or infection noted. DONALD drains intact Current Medications Clonazepam (Klonopin) 0.5 mg PO DAILY PRN PRN PRN Reason: ANXIETY Diazepam (Valium) 5 mg PO TID PRN PRN PRN Reason: spasm Lactated Ringer's () 1,000 mls @ 40 mls/hr IV .Q25H KAYLEN Last Admin: 10/11/19 13:19 Dose: 40 mls/hr Documented by: Sodium Chloride () 250 mls @ 15 mls/hr IV .[id number] PRN PRN Reason: Saline Flush Sodium Chloride () 250 mls @ 15 mls/hr IV .[id number] PRN PRN Reason: Additional IVPB Infusion Insulin Human Lispro (Humalog Kwikpen (Bkc)) 1 - 6 unit SC Q4H PRN PRN; Protocol PRN Reason: BG>/= 180, SEE PROTOCOL Oxycodone HCl (Oxyir) 5 - 10 mg PO Q4H PRN PRN PRN Reason: Pain Score 1-10/10 Last Admin: 10/12/19 06:03 Dose: 5 mg Documented by: Promethazine HCl (Phenergan) 6.25 - 12.5 mg IV Q4H PRN PRN PRN Reason: Nausea/Vomiting Sertraline HCl (Zoloft) 50 mg PO DAILY KAYLEN Last Admin: 10/12/19 08:43 Dose: 50 mg Documented by: Sodium Chloride () 10 - 40 ml IV UD PRN PRN Reason: SALINE FLUSH Medical Necessity - Tobacco Use Smoking Status: Never smoker Tobacco Use: Non-smoker Assessment/Plan All Active Problems (Last Reviewed 10/07/19 @ 17:[address] 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 Arceo S/p right mastectomy Ready for discharge Inpatient E&M: 43073 Subs Hosp L1 - No charge
== END 2019-10-12 13:42 | disposition home or self-care (01) ==
LOC: SDC 14:46 → MS3 14:46
PROVIDERS: Anesthesiology; Admitting Provider Surgery; PCP Student in an Organized Health Care Education/Training Program; Referring Provider Surgery; Visit Provider Surgery
PROC: (CPT 19307; principal; 2019-10-11 09:30)
DX: C50.911 Malignant neoplasm of unspecified site of right female breast (principal); F41.9 Anxiety disorder, unspecified; F32.9 Major depressive disorder, single episode, unspecified; Z79.899 Other long term (current) drug therapy; Z85.3 Personal history of malignant neoplasm of breast
CPT/HCPCS: 19307; 36415; 38792; 71046; 80076; 82962; 83735; 85027; 85610; 85730; 88305; 88307; 88309; 88331; 88341; 88342; 93005; 96365; 99218; 99251; A9541; J7050; J7120; G0378; G0379; G0463; J2405; Q9968

== ENCOUNTER 2019-11-18 06:00 | Day surgery (SDC) | payer BC, SELFPAY ==
[2019-10-19 08:25] VITALS: BMI 27.6
[2019-11-18 06:20] VITALS: BP 119/90; PULSE 16; RESP 16; TEMP 36.4; O2SAT 97; BMI 28.0
[2019-11-18] MEDS: Lactated Ringers 1,000 ML 100 ML IV (06:39)
--- NOTE | 2019-11-18 07:00 | PCM.HP.BLA ---
Problem List (1) Vascular catheter fitting or adjustment Status: Acute History and Physical Date of Admission: 11/18/19 [facility] [address] [place] [address] OFFICE VISIT Date of Service: 11/18/2019 MR#: [id number] Acct: [id number] Name: DOREEN ZAIDI Rep #: [id number] : 1960 Provider: Gallo Arceo MD Age/Sex: 59/F Location: [facility] Status: Signed Intake Vital Signs 09/25/19 BMI 27.8 09/23/19 Height 5 ft 4.5 in 09/23/19 Weight: 158 lb 09/23/19 BMI 26.6 09/23/19 BP 143/88 H 09/23/19 Blood Pressure Location Rt brachial 09/23/19 Position Sitting 09/23/19 Respiration 18 09/23/19 Pulse 70 09/23/19 Pulse Source Monitor 09/23/19 Temp 98.5 F 09/23/19 Temp Source Oral 09/23/19 Pulse Oximetry (%) 99 09/23/19 Oxygen Delivery Method room air Intake Visit Reasons: Discuss Breast MRI results/ Schedule 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 Is patient in pain?: No Allergies adhesive Allergy (Verified 09/23/19 10:46) Rash Penicillins Allergy (Verified 09/23/19 10:46) Unknown nitrofurantoin [From Macrobid] Adverse Reaction (Verified 09/23/19 10:46) Other nitrofurantoin macrocrystalline [From Macrobid] Adverse Reaction (Verified 09/23/19 10:46) Other Medications krill oil 500 mg capsule mg PO cap 12/21/18 [History Confirmed 09/23/19] lactobacillus combination no.8 3 billion cell capsule 3,000 mmu cells PO DAILY 12/21/18 [History Confirmed 09/23/19] calcium carbonate 500 mg calcium (1,250 mg) tablet 500 mg PO DAILY 08/31/19 [History Confirmed 09/23/19] clonazepam 0.5 mg tablet 0.5 mg PO DAILY PRN 08/31/19 [History Confirmed 09/23/19] sertraline 50 mg tablet 50 mg PO DAILY 08/31/19 [History Confirmed 09/23/19] lorazepam 2 mg tablet 2 mg PO DAILY PRN #1 tab 09/08/19 [Rx Confirmed 09/23/19] PFSH Medical History Anemia (Acute) Anxiety (Acute) Depression (Acute) Hx of breast cancer (Acute) Breast cancer (Acute) Surgical History Hx of right breast biopsy (Acute) S/P oophorectomy (Resolved) S/P dilation and curettage (Resolved) Status post right breast lumpectomy (Resolved) S/P (Resolved) Family History Sister Melanoma Father Myocardial infarction Asthma Social History (Updated 09/25/19 @ 09:[address] 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 Patient is status post an ultrasound-guided needle core biopsy of her right breast which was located in the upper outer quadrant. This was completed on 09/02/2019. This came back as an invasive ductal carcinoma. ER's were 4% MT were 0 HER-2/johanna was 0. The MRI showed a 2.5 cm enhancing mass in the upper outer quadrant of her breast which was biopsied to confirm the breast cancer. There was no other lymph nodes that looked abnormal and her liver look normal and her chest looked normal. There was no other abnormalities identified on the other side. Patient will currently be undergoing chemotherapy and is here today to have a right IJ PowerPort placed ROS General General: Yes breast cancer; no weight change, appetite, fatigue, colon cancer or weakness HEENT HEENT: No difficulty swallowing, eye injury, eye surgery, swollen glands or hoarseness Endo Endocrine: No thyroid disease, diabetes mellitus, thyroid cancer, Hair loss, heat intolerance or cold intolerance Skin Skin: No rash or changing moles Breast Breast: Yes right breast lump, breast pain, abnormal mammogram and abnormal US; no left breast lump, nipple discharge or breast enlargement Musc Musculoskeletal: No back problems, arthritis, rheumatoid arthritis, gout or joint pain Cardio Cardiovascular: No murmur, pacemaker, heart disease, atrial fibrillation, high blood pressure, heart attack, heart stent, palpitations, shortness of breat with exertion or chest pain Psych Psychiatric: Yes depression and anxiety; no hearing voices Resp Respiratory: No shortness of breath, No sleep apnea, No cough, No COPD, No asthma, No emphysema, No wheezing Gastro Gastrointestinal: No abdominal pain, No nausea or vomiting, No diarrhea, No constipation, No blood in stool, No acid reflux, No hemorrhoids, No ulcers, No gallbladder problem, No black,tarry stools Rodrick Hematologic: Yes blood thinners, No blood disorders, No bleeding, Yes anemia, No blood clots Neuro Neurologic: No weakness Exam Const General: no acute distress, well developed, well hydrated Orientation: oriented to person, oriented to place, oriented to time [facility] Head: normocephalic, atraumatic Ears: external ears normal Mouth: moist mucous membranes Eyes Sclera: sclerae normal Pupils: normal by confrontation Neck Neck: no lymphadenopathy noted Neck mass: No Thyroid: thyroid normal, symmetrical Chest Chest palpation & inspection: normal inspection of the chest Breast inspection: normal inspection of the breasts Breast Palpation: No nipple discharge Other: Palpation of the right breast reveals Minimal bruising is identified in the upper outer quadrant. Palpation of the left breast reveals Normal exam. Axillary exam demonstrates no suspicious masses in either the left or right axilla. Resp Effort & Inspection: normal respiratory effort Auscultation: clear to auscultation bilaterally Percussion: percussion normal Cardio Rate: regular rate Rhythm: regular rhythm Heart Sounds: no murmurs GI Palpation: soft, no hepatosplenomegaly, no masses, nontender Rectal Exam: other Other: Rectal exam deferred. Extrem General: normal to inspection, no clubbing, cyanosis or edema Assessment & Plan Problems Vascular fitting and adjustment Z 45.2 Plan My plan is to place a right IJ PowerPort. Risk benefits include bleeding infection possible pneumothorax have been reviewed in great detail with the patient the patient agrees to proceed. Diagnoses Vascular fitting and adjustment Z45.2 11/18/2019 Date Gallo Rodríguez Signature: Date (if applicable) I have re-examined the patient. There are no clinical changes since date of exam.
[2019-11-18] MEDS: Bupivacaine Mpf 0.5% 30 ML VIAL (07:48)
[2019-11-18 08:25] VITALS: BP 119/77; BP 119/90; PULSE 76; RESP 16; TEMP 36.7; O2SAT 98
--- NOTE | 2019-11-18 08:25 | PCM.OPRPT ---
Problem List (1) Vascular catheter fitting or adjustment Status: Acute Report of Operation Date of Procedure: 11/18/19 Pre-Operative Diagnosis: Vascular fitting and adjustment Post-Operative Diagnosis: Same Surgery/Procedure Performed:: Left IJ PowerPort placement Type of Anesthesia:: Local MAC Anesthesiologist: Jg Dinh Estimated Blood Loss (mL): < 5 cc Description of Procedure: Patient was brought into the operating room. Placed in the supine position. I ultrasound the left side of her neck identify the internal jugular vein the neck and chest were then sterilely prepped and draped in usual fashion. Patient was placed in the headdown position local was injected into the neck Seldinger's technique was used to gain access into the internal jugular vein. Guidewire was placed over the needle needle was removed fluoroscopy was used to confirm placement of the wire the wire unfortunately was heading up towards the right internal jugular I made a skin gloria placed the dilator over the guidewire removing the guidewire and then placing a flexible tip catheter through the dilator. I was able to guide this down into the superior vena cava without difficulty. I removed the dilator place a dilator and sheath over the guidewire the guidewire and dilator were removed and a single lumen catheter was placed into the superior vena cava without difficulty. Local was injected on the chest incision was made electrocautery was used for creation of a port. Tunneler was then used to go from the pocket created over the collarbone and into the neck and bring the catheter down. I cut the catheter to length placed the locking hub of the catheter the port under the catheter and secured the 2 with a locking hub. It flushed and irrigated well and was flushed with 5 cc of Hepflush. It was sutured into the pocket created with 2 sutures of 2-0 Prolene. Skin incisions were closed with 3-0 Vicryl. And then 4-0 Monocryl. Dermabond was applied sterile dressings were applied and the patient tolerated the procedure well. - Admit VTE Documentation VTE Present on Admission: No VTE Mechan Device Prophylaxis: SCD's VTE Pharm Prophylaxis ordered?: No Reason prophylaxis not ordered:: Treatment Not Indicated - Procedures Cardiovascular CF Procedures [id number]: [id number] Insert tunneled cv cath - + [id number], + [id number]
[2019-11-18 08:30] VITALS: BP 119/90; BP 120/73; PULSE 67; RESP 16; O2SAT 96
--- NOTE | 2019-11-18 08:32 | DCINST_ITS ---
Discharge Diet: No Restrictions - Pain medication may cause nausea. You should typically eat light foods as you take your pain medication. Discharge Activity: May Shower - with the bandage in place 1-2 days after surgery. DO NOT SHOWER WHEN YOUR PORT IS ACCESSED. Additional Activity Instructions:: May not drive, work with heavy equipment, or sign legal documents for [address] if you are no longer taking narcotic pain medications. You may drive when you are no longer taking pain medications. Additional Dressing/Incision Instructions:: Leave the bandage on for 2-3 days. When you remove the bandage, leave the steri-strips intact until they fall off. Allergies/Adverse Reactions: Allergies adhesive Allergy (Verified 11/16/19 11:29) Rash Penicillins Allergy (Verified 11/16/19 11:29) Unknown nitrofurantoin [From Macrobid] Adverse Reaction (Verified 11/16/19 11:29) Other nitrofurantoin macrocrystalline [From Macrobid] Adverse Reaction (Verified 11/16/19 11:29) Other Medications to take at Discharge krill oil 500 mg capsule 500 mg PO DAILY cap 12/21/18 lactobacillus combination no.8 3 billion cell capsule 3,000 mmu cells PO DAILY 12/21/18 calcium carbonate 500 mg calcium (1,250 mg) tablet 500 mg PO DAILY 08/31/19 clonazepam 0.5 mg tablet 0.5 mg PO DAILY PRN 08/31/19 diazepam 5 mg tablet 5 mg PO TID PRN #20 tab 09/27/19 oxycodone 5 mg tablet 5 mg PO Q6H PRN #30 tab 10/19/19 sertraline 50 mg tablet 100 mg PO DAILY tab 10/21/19 Primary Care Physician: Ham Martinez DO [Primary Care Provider] - Test Results: Test results from this visit will be discussed in further detail at your follow- up appointment, if applicable. Please Follow Up With: Freddy Lopez DO When: Please plan to follow up in 7 days in the office.
[2019-11-18 08:35] VITALS: BP 112/78; BP 119/90; PULSE 69; RESP 16; O2SAT 98
[2019-11-18 08:40] VITALS: BP 119/90; BP 120/78; PULSE 70; RESP 16; TEMP 36.3; O2SAT 99
--- NOTE | 2019-11-18 08:50 | RAD_ITS ---
STUDY: X-RAY CHEST REASON FOR EXAM: Female, 59 years old. Port placement post op TECHNIQUE: Single AP portable view of the chest. COMPARISON: Comparison is made with prior study October 07, 2019. FINDINGS: A left-sided portacatheter is seen with the tip at the junction of the superior vena cava and right atrium. Hyperinflation. The lungs are clear. There is no demonstrated pleural abnormality. Normal size heart. Normal mediastinum and sonny. Normal visualized pulmonary arteries. There is atherosclerotic tortuosity of the aortic arch and descending thoracic aorta. Normal visualized thoracic spine. Normal visualized ribs, clavicles, and shoulders. There is no demonstrated abnormality of the visualized soft tissue structures of the upper abdomen. RAD/Chest 1 View IMPRESSION: The tip of the left-sided portacatheter is at the junction of the superior vena cava and right atrium. Electronically Signed: Jr Lynne, at 9:12 EDT , Service support ,
[2019-11-18 09:25] VITALS: BP 119/90
== END 2019-11-18 09:47 | disposition home or self-care (01) ==
LOC: SDC 06:02 → AC 06:03
PROVIDERS: PCP Student in an Organized Health Care Education/Training Program; Referring Provider Surgery; Visit Provider Surgery
PROC: (CPT 36561; principal; 2019-11-18 07:15)
DX: Z45.2 Encounter for adjustment and management of vascular access device (principal); F32.9 Major depressive disorder, single episode, unspecified; F41.9 Anxiety disorder, unspecified; C50.411 Malignant neoplasm of upper-outer quadrant of right female breast; Z79.899 Other long term (current) drug therapy
CPT/HCPCS: 36561; 71045; 77001; J7120; C1769; C1788; J2405

== ENCOUNTER 2020-01-19 12:40 | Emergency (ER) | payer BC, SELFPAY ==
[2020-01-19 12:41] VITALS: BP 142/94; PULSE 97; RESP 18; TEMP 36.4; O2SAT 96; BMI 30.3
--- NOTE | 2020-01-19 12:47 | EKG12_ITS ---
Test Reason : SOB Blood Pressure : / mmHG Vent. Rate : 086 BPM Atrial Rate : 086 BPM P-R Int : 156 ms QRS Dur : 082 ms QT Int : 364 ms P-R-T Axes : 046 004 011 degrees QTc Int : 435 ms Normal sinus rhythm Septal infarct , age undetermined Abnormal ECG Confirmed by LORENA DIAZ, LINH ([id number]), sports editor GAURANG PAGAN ([id number]) on 01/24/2020 11:13:39 AM Referred By: MARGARITA Confirmed By:LINH CARRILLO MD
--- NOTE | 2020-01-19 13:02 | CT_ITS ---
STUDY: CTA CHEST REASON FOR EXAM: Female, 60 years old. BREAST CA, LAST CHEMO 3 WEEKS AGO, DOESNT FEEL RIGHT RADIATION DOSAGE (If Supplied By Facility): CTDIvol = ( 8.64 ) mGy, DLP = ( 447.58 ) mGycm TECHNIQUE: The examination was performed with the intravenous administration of IV 100mL Isovue-370. Post-processing of the angiographic images was performed, with multiplanar reformation and 3D reconstruction. Individualized dose optimization techniques were used for this CT. COMPARISON: None. FINDINGS: Normal enhancement of the main pulmonary artery and right and left pulmonary arteries. Normal enhancement of the bilateral peripheral pulmonary arteries. There is no demonstrated pulmonary embolism. There is atherosclerotic calcification of the aortic arch with tortuosity. There is no demonstrated aortic dissection. Normal heart and pericardium. Normal mediastinum. Normal hilar regions. There is peribronchial thickening. The lungs are well expanded. Chronic interstitial changes in both lung santos without a superimposed infiltrate or effusion. No suspicious groundglass opacifications in either lung field there is a small amount of dependent atelectasis. Normal pleura. Normal chest wall structures. There are degenerative changes of thoracic spine. There is diffuse fatty infiltration of the liver. CT/CTA Chest W/WO Contrast IMPRESSION: No demonstrated PE, or thoracic aortic aneurysm or dissection Chronic interstitial changes in both lung santos without a superimposed acute pulmonary process Degenerative bony changes Diffuse fatty infiltration of the liver Electronically Signed: Dao Escalona MD at 14:34 EDT , Service support ,
[2020-01-19 13:08] VITALS: BP 142/94; PULSE 97; RESP 18; TEMP 36.4; O2SAT 96
--- NOTE | 2020-01-19 13:21 | ED.DCSUM_ITS ---
History of Present Illness Chief Complaint: Shortness of Breath Informant: Patient Onset: Weeks Current Severity: Mild Maximum Severity: Mild Narrative: The patient presents with generalized fatigue weakness and nonspecific sense of shortness of breath, she has a history of breast cancer with recurrence currently undergoing chemotherapy by Dr. Lopez hematology, she has been seen as an outpatient for the symptoms had work-up that was unremarkable including recent labs, cardiac echo was ordered today she had it done but complains of persistent sense of shortness of breath and nonspecific fatigue Dr. Lopez assessed her and she was sent to the emergency part for the management and to obtain CTA of chest in addition to screening labs The patient has no history of LA PE or DVT she indicates she is had poor p.o. in take she has been fatigued she is been tired, no exposure to coronavirus she is able to execute all of her daily activities she has her she had her chemotherapy delayed for 2 weeks and reports no improvement recent labs have within within normal range Past Medical History - Allergies and Home Meds Allergies/Adverse Reactions: Allergies adhesive Allergy (Verified 01/19/20 12:41) Rash Penicillins Allergy (Verified 01/19/20 12:41) Unknown nitrofurantoin [From Macrobid] Adverse Reaction (Verified 01/19/20 12:41) Other nitrofurantoin macrocrystalline [From Macrobid] Adverse Reaction (Verified 01/19/20 12:41) Other Primary Care Physician: Ham Martinez DO [Primary Care Provider] - Past Medical History: - - Breast cancer with recurrence chemotherapy Smoking Status: Never smoker Review of Systems General: Reports: - - Lysed fatigue. Denies: Chills, Fever, Sweats Eyes: Denies: Visual changes - bilaterally, Diplopia ENT: Denies: Rhinorrhea, Sore throat Cardiovascular: Denies: Chest pain, Palpitations Respiratory: Reports: Dyspnea. Denies: Cough, Dyspnea on exertion Gastrointestinal: Denies: Abdominal pain, Nausea, Vomiting, Diarrhea, Melena, Hematochezia Genitourinary: Denies: Dysuria, Hematuria, Frequency Musculoskeletal: Denies: Back pain, Extremity Pain Skin: Denies: Rash, Wounds Neurological: Denies: Headache, Weakness, Numbness Physical Exam Vital Signs/Narrative: Vital Signs Temp Pulse Resp BP Pulse Ox 01/19/20 13:08 97.6 F L 97 18 142/94 H 96 01/19/20 12:41 97.6 F L 97 18 142/94 H 96 General: Well nourished, Well developed, No Acute Distress Head: Normocephalic, Atraumatic Eyes: Perrl, EOMI ENT: Moist mucous membranes, No rhinorrhea Neck: Supple, Nontender Cardiovascular: Regular rate, Regular rhythm, No murmurs Respiratory: No distress, CTA bilaterally, Chest nontender Abdomen: Soft, Nontender, Nondistended, Normal bowel sounds Back: Nontender, Normal Inspection Extremities: Nontender, No edema Skin: Normal color, No rash Neurological: Alert, Oriented x3, Cranial nerves II-XII grossly intact, Normal Strength, Normal Sensation Psychological: Normal affect, Normal Mood Diagnostic/Tx/Re-eval - Medical Decision Making Differentials extensive for the patient, She had a recent hemoglobin that was 10 creatinine 0.6 her physical exam is unremarkable, her EKG shows a sinus rhythm rate 86 no acute injury pattern appreciated, spoke with her dermatology specialist we are trying to obtain the cardiac echo which was done today the patient's been having diarrhea poor p.o. intake will provide IV fluids CTA ED screen evaluation The patient CTA of chest is negative, all labs unremarkable, on reevaluation she is resting comfortably we discussed inpatient versus outpatient management she does not wish to be admitted she feels much better she understands exact etiology of all the above remains unclear we were unable to obtain the results of the cardiac echo, I spoke with her dermatology specialist Dr. Lopez discussed all the above with him he agrees she would discharge home with close outpatient follow- up and he will follow-up on all pending results\ Home stable Final impression generalized fatigue, history of breast cancer chemotherapy ED Disposition - Plan for ED Patient: Diagnosis: Recurrent cancer of right breast Instructions: ED Weakness [facility] Referrals: Ham Martinez DO [Primary Care Provider] -
--- NOTE | 2020-01-19 13:27 | RAD_ITS ---
STUDY: X-RAY CHEST REASON FOR EXAM: Female, 60 years old. Chest pain/pressure TECHNIQUE: Single AP portable view of the chest. COMPARISON: 11/18/2019 FINDINGS: EKG leads overlie the chest. Stable appearance of a left subclavian port. The lungs are clear and expanded. There is no demonstrated pleural abnormality. Normal size heart. Normal mediastinum and sonny. Normal visualized pulmonary arteries. Normal visualized aortic arch and descending thoracic aorta. There are diffuse degenerative changes of the visualized thoracic spine. Normal visualized ribs, clavicles, and shoulders. There is no demonstrated abnormality of the visualized soft tissue structures of the upper abdomen. RAD/Chest 1 View (Portable) IMPRESSION: No acute pulmonary process Electronically Signed: Dao Escalona MD at 13:54 EDT , Service support ,
[2020-01-19 13:29] LABS: Absolute Lymphocyte Count 0.58 X10^3/uL (0.83-4.51); Absolute Neutrophil Count 5.2 X10^3/uL (2.0-7.7); Basophil# 0.05 X10^3/uL; Basophil% 0.7 % (0-1); Eosinophil# 0.05 X10^3/uL; Eosinophils% 0.7 % (0-5); Hemoglobin 10.8 g/dL (12.0-15.0); Lymphocyte # 0.58 X10^3/ul (4.0); Lymphocyte % 8.5 % (19-41); Mean Corp Hgb Conc 31.8 g/dL (32-36); Mean Corpuscular Hgb 30.7 pg (27.0-32.0); Mean Corpuscular Volume 96.6 fL (81-99); Mean Platelet Vol. 9.5 fl (6.2-12.0); Monocyte# 0.83 X10^3/uL; Monocyte% 12.2 % (0-10); NRBC Flagged by Analyzer 0 % (0-5); Neutrophil % 76.4 % (47-70); POSITIVE DIFFERENTIAL YES; Platelet Count 248 K/mm3 (150-450); RBC Distribution Width CV 16.3 % (11.6-14.6); Red Blood Count 3.52 M/mm3 (4.2-5.4); White Blood Count 6.8 K/mm3 (4.4-11.0)
[2020-01-19] MEDS: 0.9% Normal Saline 1,000 ML 999 ML IV (13:31)
[2020-01-19 13:43] LABS: Anion Gap 6 (5-15); BUN 16 mg/dL (7-18); BUN/Creat Ratio 21.3 RATIO (10-20); Calcium,Total 9.2 mg/dL (8.5-10.1); Chloride 107 mmol/L (98-107); Creatinine, Serum 0.75 mg/dL (0.55-1.02); EST Glomerular Filtration Rate 84 mL/min (>60); Est Glom Filt Rate - Afr Amer 102 mL/min (>60); Glucose 118 mg/dL (74-106); Potassium 3.8 mmol/L (3.5-5.1); Sodium Level 141 mmol/L (136-145)
[2020-01-19 13:52] LABS: BNP,B-Type NATRIURETIC PEPTIDE 20.5 pg/mL (0-100)
[2020-01-19 13:57] LABS: Differential Indicated SCAN CRITERIA MET
[2020-01-19 15:22] VITALS: BP 155/93; PULSE 87; RESP 18; O2SAT 96
[2020-01-19 15:45] VITALS: BP 155/93; PULSE 89; RESP 18; O2SAT 99
== END 2020-01-19 15:47 | disposition home or self-care (01) ==
LOC: ED 13:42
PROVIDERS: Emergency Provider Emergency Medicine; PCP Student in an Organized Health Care Education/Training Program
DX: C50.911 Malignant neoplasm of unspecified site of right female breast (principal); R53.83 Other fatigue; Z92.21 Personal history of antineoplastic chemotherapy
CPT/HCPCS: 36591; 71045; 71275; 80048; 83880; 84484; 85025; 93005; 99285; J7030; Q9967; A4216

== ENCOUNTER → 2020-10-16 09:01 | Outpatient (CLI) | payer BC, SELFPAY ==
[2020-06-11 11:31] VITALS: BMI 28.7
[2020-09-04 08:35] VITALS: BMI 28.2
--- NOTE | 2020-10-16 09:07 | BD_ITS ---
STUDY: DUAL ENERGY X-RAY ABSORPTIOMETRY / DXA REASON FOR EXAM: Female, 60 years old. Postmenopausal TECHNIQUE: Bone Mineral Density (BMD) measurements of lumbar spine and bilateral hips were obtained. COMPARISON: None. FINDINGS: Lumbar Spine (L1-L4): g/cm2 (1.018) / T-score (-1.4) / Z-score (-0.3) Findings are suggestive of osteopenia with a low fracture risk. Left Femur Total: g/cm2 (0.842) / T-score (-1.3) / Z-score (-0.5) Left Femoral Neck: g/cm2 (0.828) / T-score (-1.5) / Z-score (-0.3) Right Femur Total: g/cm2 (0.836) / T-score (-1.4) / Z-score (-0.5) Right Femoral Neck: g/cm2 (0.819) / T-score (-1.6) / Z-score (-0.4) BD/Dexa Bone Density Study IMPRESSION: The patient is considered osteopenic as outlined below according to World Larry Organization (WHO) criteria with a moderate fracture risk. Reference Information: The T-score is the number of standard deviations above or below the standard which is normal for young adults at their peak bone mineral density. The World Health Organization (WHO) interprets the T-scores as follows: Above -1 Normal bone density Between -1 and -2.5 Osteopenia Equal to / or below -2.5 Osteoporosis As a practical clinical guideline, osteopenia may be graded as follows: Mild -1 through -1.5 Moderate -1.6 through -2.0 Severe -2.1 through -2.4 The Z-score is the number of standard deviations above or below age-matched controls. A Z-score of less than -1.5 would be considered abnormal. References: 1. NIH Osteoporosis and Related Bone Diseases www osteo.org 2. International Society for Clinical Densitometry www iscd.org 3. National Osteoporosis Foundation www nof.org Electronically Signed: Jr Lynne MD at 14:25 EDT , Service support ,
== END ==
PROVIDERS: PCP Student in an Organized Health Care Education/Training Program; Referring Provider Nurse Practitioner Women's Health; Visit Provider Nurse Practitioner Women's Health
DX: Z78.0 Asymptomatic menopausal state (principal)
CPT/HCPCS: 77080

== ENCOUNTER → 2022-10-20 | Outpatient (CLI) | payer BC, SELFPAY ==
[2020-06-11 11:31] VITALS: BMI 28.7
[2022-10-24 14:47] LABS: HPV APTIMA, High Risk Negative (Negative)
== END | disposition home or self-care (01) ==
LOC: LABSPEC 13:07
PROVIDERS: PCP Student in an Organized Health Care Education/Training Program; Referring Provider Nurse Practitioner Women's Health; Visit Provider Nurse Practitioner Women's Health
DX: Z12.4 Encounter for screening for malignant neoplasm of cervix (principal)
CPT/HCPCS: 87624; 88175; G0145

== ENCOUNTER 2025-02-11 10:16 | Emergency (ER) | payer BC, SELFPAY ==
[2020-06-11 11:31] VITALS: BMI 28.7
[2025-02-11 10:17] VITALS: BP 186/112; PULSE 136; RESP 26; TEMP 36.4; O2SAT 98; BMI 27.4
--- NOTE | 2025-02-11 10:26 | EX.ED.DYSGE1 ---
HPI History of Present Illness Chief Complaint: Allergic Reaction Informant: patient Narrative Narrative: Presents concerns for allergic reaction symptoms started last evening with welts starting her back bottom. Increasing rash. States she feels short of breath however more anxious. No lip or tongue swelling no trouble swallowing. She finished a 7-day course of Bactrim for UTI symptoms which has resolved. She is unclear if she is taking Bactrim in the past. She took Benadryl last evening. Denies any change in soaps or detergents. Denies any cardiac history denies history of diabetes. Prior similar symptoms: No PFSH PFSH Medical History Breast cancer, right Soft tissue radionecrosis Ptosis of breast Late effect of radiation Recurrent cancer of right breast History of chemotherapy History of radiation therapy High cholesterol High blood pressure UTI (urinary tract infection) Allergies Anemia Anxiety Depression Home Medications ?Medication ?Instructions ?Recorded ?Last Taken ?Type lactobacillus combination no.8 3 3,000 mmu cells PO DAILY supplement 12/21/18 Unknown History billion cell capsule (Adult Probiotic) clonazepam 0.5 mg tablet (Klonopin) 0.5 mg PO DAILY PRN Anxiety 08/31/19 09/28/19 History lisinopril 10 mg tablet 10 mg PO DAILY 06/11/20 Unknown History tacrolimus 0.1 % in vehicle base 30 g TP BID 06/11/20 Unknown History no.238 topical cream cholecalciferol (vitamin D3) 50 50 mcg PO DAILY 09/04/20 Unknown History mcg (2,000 unit) capsule zinc 50 mg tablet 50 mg PO DAILY 09/04/20 Unknown History Flucelvax Quad [id number] 60 mcg 60 mcg (0.5 mL) IM ONCE #0.5 mL 07/01/21 Unknown Clinic (15 mcg x 4)/0.5 mL intramuscular susp (flu vac qs 2020-(6 ms up) CD) estradiol 10 mcg vaginal tablet 10 mcg vaginal 2XW #30 tabs 10/20/22 Unknown Rx ezetimibe 10 mg tablet (Zetia) 10 mg PO DAILY 10/20/22 Unknown History letrozole 2.5 mg tablet (Femara) 2.5 mg PO DAILY 10/20/22 Unknown History metoprolol succinate 25 mg 25 mg PO DAILY 10/20/22 Unknown History tablet,extended release 24 hr pramipexole 0.125 mg tablet 0.125 mg PO DAILY 10/20/22 Unknown History (Mirapex) sertraline 50 mg tablet (Zoloft) 200 mg PO DAILY 10/20/22 Unknown History estradiol 0.01% (0.1 mg/gram) See Rx Instructions vaginal 12/03/22 Unknown Rx vaginal cream .COMPLEX #42.5 grams famotidine 20 mg tablet 20 mg PO BID #10 TABLETS 02/11/25 Unknown Rx prednisone 20 mg tablet 60 mg (3 x 20 mg) PO DAILY #12 02/11/25 Unknown Rx TABLETS Allergy/AdvReac Type Severity Reaction Status Date / Time sulfamethoxazole (From Allergy Severe Anaphylaxis Verified 02/11/25 10:27 Bactrim) trimethoprim (From Bactrim) Allergy Severe Anaphylaxis Verified 02/11/25 10:27 dextromethorphan Allergy Mild Other Verified 02/11/25 10:27 phenylephrine Allergy Mild Other Verified 02/11/25 10:27 adhesive Allergy Rash Verified 02/11/25 10:27 Penicillins Allergy Unknown Verified 02/11/25 10:27 prednisolone AdvReac Intermediate heart Verified 02/11/25 10:27 racing nitrofurantoin (From AdvReac Other Verified 02/11/25 10:27 Macrobid) nitrofurantoin AdvReac Other Verified 02/11/25 10:27 macrocrystalline (From Macrobid) Family History Sister Melanoma Father Myocardial infarction Asthma Mother Anemia Aunt Breast cancer Surgical History S/P breast reconstruction Status post right mastectomy (~10/11/19) VAGINOPLASTY History of tubal ligation S/P Status post right breast lumpectomy S/P dilation and curettage S/P oophorectomy Social History Smoking Status: Never smoker alcohol intake: current details: occasionally substance use type: does not use caffeine: No what type of physical activity do you participate in: none seatbelt use: always do you feel safe at home: Yes additional social history: [employer] Dr[employer] 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 ED Constitutional Constitutional ED: Denies chills, fever(s) or sweats ENT ENT ED: Denies sore throat Cardiovascular Cardiovascular: Denies chest pain, leg edema, palpitations or racing heartbeat Respiratory/Chest Respiratory/Chest: Reports dyspnea; Denies cough or dyspnea on exertion Gastrointestinal Gastrointestinal: Denies abdominal pain, diarrhea, nausea or vomiting Genitourinary Genitourinary ED: Denies dysuria, hematuria or urinary frequency Musculoskeletal Musculoskeletal: Denies back pain, extremity pain or neck pain Integumentary Reports rash; Denies wounds Neurologic Neurologic: Denies headache(s), paresthesias or weakness EXAM Physical Exam Const Vital Signs: 02/11/25 10:17 02/11/25 10:47 02/11/25 11:17 Temperature 97.6 F L Temperature Source Temporal Pulse Rate 136 H 104 H 90 Respiratory Rate 26 H 22 H Blood Pressure 186/112 H 143/79 H 151/100 H Blood Pressure Mean 136 100 117 Pulse Ox 98 100 Oxygen Delivery Method Room Air 02/11/25 11:30 02/11/25 12:00 Temperature Temperature Source Pulse Rate 90 90 Respiratory Rate 13 Blood Pressure 144/96 H Blood Pressure Mean 112 Pulse Ox 100 Oxygen Delivery Method Positive well nourished and well developed General Appearance ED: well developed and NAD HEENT Reports moist mucous membranes HEENT Narrative: No lip or tongue swelling. Airway patent no stridor. normocephalic and atraumatic Eyes General Eye ED: Yes normal appearance of both eyes Neck full ROM Chest Wall Chest: Negative for tenderness Resp normal respiratory effort and normal air movement Effort and Inspection: symmetric chest movement; Negative for respiratory distress Cardio regular rhythm and no murmurs Rate: tachycardic Peripheral Pulses: pulses 2+ throughout GI normal to inspection, nondistended, normoactive bowel sounds and non-tender Palpation: Negative for guarding or rebound tenderness present Extremity normal to inspection General Extremety ED: Negative for edema or tenderness General Extremity: Negative for edema Neuro oriented x3 and no sensory deficits noted Sensorium / Orientation: awake and alert Skin Skin Narrative: Diffuse generalized erythema there are papules on her back small urticarial lesions. Nontender, no drainage. MDM MDM MDM Narrative Medical decision making narrative: Interventions / MDM: Differential diagnosis: Allergic rash, allergic reaction, history of anxiety Diagnosis considered but do not suspect: My EKG interpretation: N/A Imaging independently reviewed and interpreted by myself: N/A External documents reviewed: N/A Test considered but not ordered:N/A ED course: Patient tachycardic. No swelling. History of anxiety with anxiousness. Narrow complex tachycardia on the monitor. IV established. No airway compromise at this time. Will treat with Benadryl Pepcid and Solu-Medrol. IV fluids for tachycardia will monitor closely. 1140: Clinically symptoms are improving. Heart rate improved. Initial request for her home Klonopin however her anxiety was also improving therefore this was held. 1215: Symptoms improved erythema improved there was residual rash noted. Noted prednisolone allergy causing heart racing she had no reaction to Solu-Medrol. She thinks she has done the prednisone pills in the past. Discussed there is her side effects. Discussed with her if her symptoms stay away she can she is not to continue prednisone however 4-day prescription will be written. She will continue Benadryl every 6 hours. She will continue Pepcid twice a day. Prescriptions to her pharmacy. Patient's urine symptoms has improved along with finishing her antibiotics therefore new prescription antibiotics not necessary. All questions were answered. Re-evaluation: stable Disposition discussed with patient/family/significant other: Patient and family Case discussed with consulting clinician: N/A This note was generated with [employer] dictation software. It may contain incorrect words, spelling, and punctuation that were not noted in checking the note before signing. Discharge Plan Triage Chief Complaint: Allergic Reaction ED Provider: Matthew Kenney Dx/Rx/DC Orders Clinical Impression: Allergic reaction, Anxiety, Allergic drug rash, Sinus tachycardia Instructions: ED Allergic Reaction Local Other, ED Drug Reaction, Other Prescriptions: New famotidine 20 mg tablet 20 mg PO BID Qty: 10 0RF prednisone 20 mg tablet 60 mg PO DAILY Qty: 12 0RF No Action Adult Probiotic 3 billion cell capsule 3,000 mmu cells PO DAILY clonazepam [Klonopin] 0.5 mg tablet 0.5 mg PO DAILY PRN (Reason: Anxiety) Patient Comments: on hold for surgery sertraline [Zoloft] 50 mg tablet 200 mg PO DAILY zinc 50 mg tablet 50 mg PO DAILY cholecalciferol (vitamin D3) 50 mcg (2,000 unit) capsule 50 mcg PO DAILY Flucelvax Quad [id number] 60 mcg (15 mcg x 4)/0.5 mL suspension 60 mcg IM ONCE Qty: 0.5 0RF pramipexole [Mirapex] 0.125 mg tablet 0.125 mg PO DAILY metoprolol succinate 25 mg tablet extended release 24 hr 25 mg PO DAILY letrozole [Femara] 2.5 mg tablet 2.5 mg PO DAILY ezetimibe [Zetia] 10 mg tablet 10 mg PO DAILY estradiol 10 mcg tablet 10 mcg vaginal 2XW Qty: 30 3RF lisinopril 10 MG tablet 10 mg PO DAILY tacrolimus-vehicle base no.238 30 GM cream 30 g TP BID estradiol 0.01 % (0.1 mg/gram) cream See Rx Instructions vaginal .COMPLEX Qty: 42.5 2RF Rx Instructions: small amount as directed vaginal every other day X 4 weeks Primary Care Provider: Ham Martinez Referrals: Ham Martinez DO [Primary Care Provider] - 1-2 Weeks Activity Restrictions/Additional Instructions: Allergic rash likely due to Bactrim. Heart rate fast likely 2 years anxiety symptoms. No lip or tongue swelling. Symptoms improved in ED. May use Benadryl 25 to 50 mg every 6 hours to help with itching symptoms. Prednisone for 4 more days starting tomorrow. Continue Pepcid(famotidine) for the next 5 days next dose this evening. Print Language: [place] Disposition Disposition: Home, Self Care
[2025-02-11] MEDS: DiphenhydrAMINE 50 MG/ML Syringe IV (10:32)
[2025-02-11] MEDS: 0.9% Normal Saline (1000mL) 1,000 ML 1000 ML IV (10:32)
[2025-02-11] MEDS: Famotidine 200 MG/20 ML MDV 20 MG in 0.9% Normal Saline (Pres. free 8 ML 300 MG IV (10:34)
[2025-02-11 10:47] VITALS: BP 143/79; PULSE 104; RESP 22; O2SAT 100
--- OUTSIDE RECORDS SUMMARY | 2025-02-11 10:55 | XMS RPT_ITS | CCD ---
Author Organization [facility] Inform ion Partnership [facility] Care Team Providers Care Machine Operators Name Role Phone Ham Martinez Primary Care Provider Ham Martinez DO Primary Care Provider Chandan DIAZ MD, Millicentung Unavailable Olya Astudillo Unavailable Unavailable Elizabeth HAYNES, Carly Unavailable Unavailable Martinez DOHam Primary Care Provider Penelope Phan RN Unavailable Unavailable Ham Martinez DO Primary Care Provider Chandan DIAZ MD, Daesung Unavailable Olya Jose RN Unavailable Unavailable Elizabeth HAYNES, Carly Unavailable Unavailable Ham Martinez DO Primary Care Provider Juan SINGLETON Ham Primary Care Provider Ham Martinez DO Primary Care Provider Chandan DIAZ MD, Daesung Unavailable Olya Jose RN Unavailable Unavailable Elizabeth RN, Carly Unavailable Unavailable MARTINEZ, HAM Primary Care Unavailable MARTINEZ, HAM Referring Unavailable CARLOTTA RANDLE Attending Unavailable MARTINEZ, HAM Referring Unavailable MARTINEZ, HAM Primary Care Unavailable JOSE FRANCISCO COUGHLIN Admitting Unavailable JOSE FRANCISCO COUGHLIN Attending Unavailable MARTINEZ, HAM Referring Unavailable JOSE FRANCISCO COUGHLIN Admitting Unavailable MARTINEZ, HAM Primary Care Unavailable JOSE FRANCISCO COUGHLIN Attending Unavailable MARTINEZ, HAM Referring Unavailable MARTINEZ, HAM Primary Care Unavailable JOSE FRANCISCO COUGHLIN Attending Unavailable MARTINEZ, HAM Primary Care Unavailable SELF, SELF Referring Unavailable CARLOTTA RANDLE Attending Unavailable MARTINEZ, HAM Primary Care Unavailable MARTINEZ, HAM Referring Unavailable IAN DHILLON Attending Unavailable MARTINEZ, HAM Primary Care Unavailable SKORACKI, JOSE FRANCISCO J Referring Unavailable SKORACKI, JOSE FRANCISCO J Attending Unavailable MARTINEZ, HAM Primary Care Unavailable MARTINEZ, HAM Referring Unavailable SKORACKI, JOSE FRANCISCO J Attending Unavailable MARTINEZ, HAM Referring Unavailable MARTINEZ, HAM Primary Care Unavailable SKORACKI, JOSE FRANCISCO J Attending Unavailable MARTINEZ, HAM Primary Care Unavailable MARTINEZ, HAM Referring Unavailable TRICIA REYES Attending Unavailable MARTINEZ, HAM Primary Care Unavailable SKORACKI, JOSE FRANCISCO J Referring Unavailable ALEJANDRA MCKEON Attending Unavailable MARTINEZ, HAM Primary Care Unavailable MARTINEZ, HAM Referring Unavailable SKORACKI, JOSE FRANCISCO J Attending Unavailable MARTINEZ, HAM Primary Care Unavailable MARTINEZ, HAM Referring Unavailable SKORACKI, JOSE FRANCISCO J Attending Unavailable MARTINEZ, HAM Primary Care Unavailable MARTINEZ, HAM Referring Unavailable SKORACKI, JOSE FRANCISCO Bridgette Attending Unavailable MARTINEZ, HAM Primary Care Unavailable MARTINEZ, HAM Referring Unavailable SKORACKI, JOSE FRANCISCO J Attending Unavailable MARTINEZ, HAM Primary Care Unavailable MARTINEZ, HAM Referring Unavailable CED JOSE FRANCISCO J Attending Unavailable Dr. Ham Martinez Primary Care Provider Dr. Ham Martinez Referring Provider Dr. Jimmy Cota Attending Provider Ben 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, 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 Ai Attending Provider Martinez, Ham Primary Care Unavailable Ben 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Ai Attending Unavailable Martinez, Ham Referring Unavailable Martinez, Hma Primary Care Unavailable Ben 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, Ai Referring Unavailable Ben 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 Ai Attending Unavailable Martinez, Ham Referring Unavailable Martinez, Ham Primary Care Unavailable Dr. Jimmy Cota Attending Unavailable Martinez, Ham Primary Care Unavailable Dr. Jimmy Cota Attending Unavailable Martinez, Ham Referring Unavailable Elizabeth HAYNES, Carly Unavailable Unavailable Flavia Hawley MD Unavailable Ham Martinez DO Primary Care Provider HAM MARTINEZ L Referring Unavailable MARTINEZ, HAM L Primary Care Unavailable Shahriar MAXWELL.SLICING MACHINE TENDER, Taisha Henley Unavailable Lucy SCENERY BUILDER.SLICING MACHINE TENDER, Crystal Unavailable Sita SCENERY BUILDER.SLICING MACHINE TENDER, Miriam Murillo Unavailable MARTINEZ, HAM L Primary Care Unavailable MARTINEZ, HMA L Referring Unavailable Rene'JOSE EDUARDO, JILL Attending Unavailable MARTINEZ, HAM L Primary Care Unavailable MARTINEZ, HAM L Referring Unavailable O'JOSE EDUARDO, JILL Attending Unavailable MARTINEZ, HAM L Primary Care Unavailable LOU, ETHAN Referring Unavailable MARTINEZ, HAM L Primary Care Unavailable MATTHEW MAKI Attending Unavailable MARTINEZ, HAM L Primary Care Unavailable MARTINEZ, HAM L Referring Unavailable MARTINEZ, HAM L Primary Care Unavailable MARTINEZ, HAM L Attending Unavailable SELF Referring Unavailable MARTINEZ, HAM L Primary Care Unavailable BECCA MAGANA Referring Unavailable MARTINEZ, HAM L Primary Care Unavailable ETHAN MCKEON Attending Unavailable MATTHEW MAKI Referring Unavailable MARTINEZ, HAM L Primary Care Unavailable MARTINEZ, HAM L Referring Unavailable MARTINEZ, HAM L Primary Care Unavailable PENDMARIE, MATTHEW Referring Unavailable MARTINEZ, HAM L Primary Care Unavailable MARTINEZ, HAM L Attending Unavailable BECCA MAGANA Referring Unavailable BECCA MAGANA Attending Unavailable MARTINEZ, HAM L Primary Care Unavailable MARTINEZ, HAM L Referring Unavailable MARTINEZ, HAM L Primary Care Unavailable MARTINEZ, HAM L Primary Care Unavailable MARTINEZ, HAM L Attending Unavailable MARTINEZ, HAM L Referring Unavailable MARTINEZ, HAM L Primary Care Unavailable MARTINEZ, HAM L Primary Care Unavailable MARTINEZ, HAM L Attending Unavailable SHELLEY, BECCA Attending Unavailable MARTINEZ, HAM L Primary Care Unavailable MARTINEZ, HAM L Primary Care Unavailable LOU, ETHAN Attending Unavailable MATTHEW MAKI Referring Unavailable MARTINEZ, HAM L Primary Care Unavailable LOU, ETHAN Referring Unavailable MARTINEZ, HAM L Referring Unavailable MARTINEZ, HAM L Primary Care Unavailable O'JOSE EDUARDO, JILL Attending Unavailable Allergies Allergy Classification Reported Allergen(s) Allergy Type Date of Onset Reaction(s) Facility (1 source) Adhesive Tape Propensity to adverse reactions to drug 07-30-19 06 Rash, Other (See Comments) [facility] (7 sources) Nitrofurantoin Drug Allergy 12-24-19 07 Other (See Comments) [facility] (9 sources) Penicillins; Translations: [PENICILLINS] Propensity to adverse reactions to drug 05-06-20 05 Other (See Comments), Intolerance [facility] (20 sources) predniSONE; Translations: [PREDNISONE] Drug Allergy 12-27-19 21 Other (See Comments), Other: See Comments, Palpitations [facility] (20 sources) Adhesive Tape; Translations: [ADHESIVE TAPE (ROSINS)] Propensity to adverse reactions to substance 07-30-19 06 Intolerance [facility] (20 sources) NITROFURANTOIN, MACROCRYSTALS / Nitrofurantoin, Monohydrate; Translations: [NITROFURANTOIN MONOHYD/M-CRYST] Drug Allergy 12-24-19 07 [facility] (4 sources) Penicillins Drug Intolerance 05-06-20 05 Intolerance [facility] Work Phone: (5 sources) Wound Dressing Adhesive Propensity to adverse reactions to drug 07-29-19 [facility] (20 sources) Penicillins Drug Intolerance 05-06-20 05 Intolerance [facility] Work Phone: (20 sources) Dextromethorphan; Translations: [DEXTROMETHORPHAN] Drug Allergy 09-17-19 Mental Status Change [facility] Work Phone: (20 sources) Phenylephrine; Translations: [PHENYLEPHRINE] Drug Allergy 09-17-19 23 Intolerance [facility] Work Phone: (2 sources) Adhesive agent; Translations: [adhesive] Allergy to substance 10-21-19 23 Rash [facility] (1 source) Penicillins Allergy to substance 10-21-19 23 Unknown [facility] (1 source) prednisoLONE Drug Allergy 10-21-19 23 heart racing [facility] (2 sources) nitrofurantoin macrocrystalline; Translations: [nitrofurantoin macrocrystalline] Propensity to adverse reactions 10-21-19 23 Other [facility] (1 source) Dextromethorphan Drug Allergy 10-21-19 23 [facility] (1 source) Nitrofurantoin Drug Allergy 10-21-19 23 [facility] (1 source) Penicillins Drug allergy (disorder) 10-21-19 23 [facility] (1 source) Phenylephrine Drug Allergy 10-21-19 [facility] (1 source) prednisoLONE Drug Allergy 10-21-19 [facility] (16 sources) ezetimibe; Translations: [EZETIMIBE] Drug Allergy 10-04-19 25 Myalgia [facility] (14 sources) Penicillins Drug Intolerance 05-06-20 05 Intolerance [facility] Work Phone: Medications Current Medications Medication Drug Class(es) Dates Sig (Normalized) Sig (Original) acetaminophen 325 mg oral tablet (2 sources) Start: 08-16-2021 take 2 tablets by mouth every four hours as needed acetaminophen 325 MG tablet Take 2 tablets by mouth every 4 hours as needed for mild pain for up to 7 days. 40 tablet 0 08/16/2021 Active ALPRAZolam 0.5 mg oral tablet (2 sources) Benzodiazepine Start: 09-08-2022 End: 09-13-2022 take 1 tablet by mouth three times daily as needed ALPRAZolam (XANAX) 0.5 mg tablet Indications: Panic attack Take 1 tablet by mouth three times daily as needed (panic attack) for up to 5 days. 15 tablet 0 09/08/2022 09/13/2022 Active Comment on above: Take 1 tablet by rene th three times daily as needed (panic attack) for up to 5 days. B Complex Vitamins (VITAMIN B COMPLEX 100 IJ) (5 sources) B Complex Vitami ns (VITAMIN B COMPLEX 100 IJ) Take by mouth daily every morning. 0 Active cephalexin 500 mg oral capsule (1 source) Cephalosporin Antibacterial Start: 05-27-2022 End: 06-01-2022 take 2 capsules by mouth every twelve hours cephALEXin 500 MG capsule Take 2 capsules by mouth every 12 hours for 5 days. 20 capsule 0 05/27/2022 06/01/2022 Active cholecalciferol 0.05 mg oral capsule (20 sources) Vitamin D Start: 09-04-2020 Cholecalciferol 50 MCG (1999 UT) CAPS Take by mouth 0 09/04/2020 Active take 1 tablet by rene th once daily cholecalciferol (VITAMIN D3) 5,000 unit tab Take 5,000 Units by mouth once daily. Active End: 11-24-2022 take 1 tablet by mouth once daily cholecalciferol (VITAMIN D3) 400 unit tab Take 400 Units by mouth once daily. 0 11/24/2022 Discontinued Comment on above: Take 400 Units by mo ut once daily. Take 5,000 Units by mouth once daily. ciprofloxacin 500 mg oral tablet (4 sources) Quinolone Antimicrobial Start: 07-06-20 End: 07-16-20 take 1 tablet by mouth twice daily ciprofloxacin HCl (CIPRO) 500 mg tablet Take 1 tablet by mouth two times a day for 10 days. 20 tablet 07/06/2024 07/16/2024 Active Start: 02-10-2024 End: 02-15-2024 take 1 tablet by mouth twice daily ciprofloxacin HCl (CIPRO) 500 mg tablet Take 1 tablet by mouth two times a day for 5 days. 10 tablet 0 02/10/2024 02/15/2024 Active Start: 12-21-2018 End: 12-24-2018 take 500 mg by mouth twice daily Ciprofloxacin Hcl Discontinued 500 MG PO TWICE A DAY 6 December 21, 2018 12:00am December 24, 2018 12:06am Start: 02-01-2018 End: 02-04-2018 take 500 mg by mouth twice daily Ciprofloxacin Hcl Discontinued 500 MG PO TWICE A DAY 6 February 01, 2018 12:00am February 04, 2018 12:06am clindamycin 150 mg oral capsule (1 source) Lincosamide Antibacterial Start: 10-24-2021 End: 10-29-2021 take 3 capsules by mouth three times daily clindamycin (CLEOCIN) 150 mg capsule Take 3 capsules by mouth three times daily for 5 days. 45 capsule 0 10/24/2021 10/29/2021 Active Comment on above: Take 3 capsules by m out three times daily for 5 days. clonazePAM 0.5 mg oral tablet (20 sources) Benzodiazepine Start: 09-26-2022 End: 03-22-2023 take 1 tablet by mouth twice daily as needed for anxiety clonazePAM (KLONOPIN) 0.5 mg tablet Indications: Situational anxiety , Situational insomnia Take 1 tablet by mouth twice daily as needed for anxiety for up to 30 days. 60 tablet 2 02/20/2023 Active Start: 09-20-2021 End: 11-24-2022 take 1 tablet by mouth twice daily as needed clonazePAM (KLONOPIN) 1 mg tablet Indications: Situational anxiety , Situational insomnia Take 1 tablet by mouth twice daily as needed for up to 30 days. 60 tablet 2 03/21/2022 06/23/2022 Discontinued Start: 12-03-2020 End: 09-02-2021 take 1 tablet by mouth every twelve hours as needed for anxiety and anxiety clonazePAM (KLONOPIN) 0.5 mg tablet Indications: Situational anxiety Take 1 tablet by mouth twice daily as needed for Anxiety for up to 30 days. 60 tablet 5 12/03/2020 09/02/2021 Discontinued Start: 08-31-2019 take 1 tablet by rene th once daily Clonazepam (Klonopin) 0.5 mg tablet Active 0.5 MG PO DAILY August 31, 2019 1:00am Comment on above: Take 1 tablet by rene th twice daily as needed for up to 30 days. Take 1 tablet by rene th twice daily as needed for anxiety for up to 30 days. codeine phosphate 2 mg/ml / guaiFENesin 20 mg/ml oral solution (1 source) Opioid Agonist Start: 021 take 5-10 mL by mouth four times daily as needed for cough VIRTUSSIN A/C 100-10 MG/5ML syrup Take 5-10 mL by mouth four times daily as needed for Cough for up to 7 days. May cause drowsiness. 0 12/03/2020 Active diphenhydrAMINE hydrochloride 25 mg oral tablet (2 sources) Histamine-1 Receptor Antagonist Start: 022 take 1 tablet by mouth every six hours as needed diphenhydrAMINE 25 MG tablet Take 1 tablet by mouth every 6 hours as needed for itching for up to 7 days. 20 tablet 0 08/16/2021 Active doxycycline hyclate 100 mg oral tablet (1 source) Tetracycline-class Drug Start: 023 End: 023 take 1 tablet by mouth twice daily doxycycline (VIBRA-TABS) 100 mg tablet Take 1 tablet by mouth twice daily for 7 days. 14 tablet 0 09/17/2022 09/24/2022 Active Comment on above: Take 1 tablet by rene th twice daily for 7 days. DULoxetine 60 mg delayed release oral capsule (20 sources) Serotonin and Norepinephrine Reuptake Inhibitor Start: 024 End: 025 take 1 capsule by mouth once daily DULoxetine (CYMBALTA) 60 mg capsule Indications: Anxiety and depression Take 1 capsule by mouth once daily. 30 capsule 5 01/31/2025 Active Start: 08-03-2023 End: 03-26-2024 take 1 capsule by mouth once daily DULoxetine (CYMBALTA) 60 mg capsule Indications: Anxiety and depression Take 1 capsule by mouth once daily. 30 capsule 3 11/25/2023 03/26/2024 Discontinued Start: 12-19-2022 End: 02-20-2023 take 1 capsule by mouth once daily DULoxetine (CYMBALTA) 60 mg capsule Indications: Anxiety and depression Take 1 capsule by mouth once daily. 30 capsule 3 02/20/2023 Active Start: 10-24-2022 take 1 capsule by mo uth once daily DULoxetine (CYMBALTA) 20 mg capsule Indications: Situational anxiety , Panic attack , Depressive disorder Take 1 capsule by mouth once daily. 30 capsule 2 10/24/2022 Active Comment on above: Take 1 capsule by mo uth once daily. estradiol 0.01 mg vaginal insert (20 sources) Estrogen Start: 10-20-2022 End: 10-20-2022 Estradiol Active 10 MCG VAGINAL TWICE A WEEK October 20, 2022 10:32am Start: 10-02-2021 End: 11-21-2024 Estradiol (VAGIFEM) 10 mcg v aginal tablet Use 10 mcg vaginally three times a week. 10/02/2021 11/21/2024 Discontinued (Patient chooses alternative therapy) Start: 10-02-2021 estradiol (Vag ifem) 10 MCG vaginal tablet Indications: Vaginal atrophy Insert 1 tablet vaginally daily. Use daily for 2-4 weeks, then 2-3 times weekly. 30 tablet 6 10/02/2021 Active Comment on above: Use 10 mcg vaginally three times a week. gabapentin 100 mg oral capsule (4 sources) Anti-epileptic Agent Start: 08-16-2021 take 1 capsule by mouth three times daily gabapentin 100 MG capsule Take 1 capsule by mouth 3 times daily for 7 days. 21 capsule 0 08/16/2021 Active Start: 06-11-2020 End: 10-20-2022 gabapentin (NEURONTIN) 300 M G capsule Take by mouth. 0 06/11/2020 Active ibuprofen 400 mg oral tablet (2 sources) Nonsteroidal Anti-inflammatory Drug Start: 08-16-2021 take 1 tablet by mouth every six hours as needed ibuprofen 400 MG tablet Take 1 tablet by mouth every 6 hours as needed for mild pain for up to 7 days. 40 tablet 0 08/16/2021 Active Lactobacillus acidophilus (20 sources) take 1 capsule by mouth once daily Lactobacillus acidophilus (PROBIOTIC ORAL) Take 1 capsule by mouth once daily. Active take 1 capsule by mouth once shelia ly Lactobacillus acidophilus (PROBIOTIC ORAL) Take 1 capsule by mouth once daily. 0 Active Comment on above: Take 1 capsule by mo [facility] once daily. Lactobacillus Combination No.8 (Adult Probiotic) 3 billion cell capsule (1 source) Start: 12-22-19 take 3 capsules by mouth once daily Lactobacillus Combination No.8 (Adult Probiotic) 3 billion cell capsule Active 3000 MMU CELLS PO DAILY December 21, 2018 12:00am letrozole 2.5 mg oral tablet (20 sources) Aromatase Inhibitor Start: 02-12-20 End: 11-22-19 take 1 tablet by mouth once daily letrozole (FEMARA) 2.5 mg tablet Take 1 tablet by mouth once daily. 90 tablet 3 11/21/2024 Active Comment on above: Take [address] [facility] once daily. levothyroxine sodium 0.075 mg oral tablet (20 sources) l-Thyroxine Start: 12-22-19 End: 01-21-20 25 take 1 tablet by mouth once daily in the morning for thyroid dysfunction levothyroxine (LEVOXYL) 75 mcg tablet Indications: Hypothyroidism, acquired Take 1 tablet by mouth once daily. Take daily in the morning before eating, Take on empty stomach. For Thyroid 30 tablet 12/21/2024 Active Start: 03-29-2024 End: 11-21-2024 take 1 tablet by mouth once daily in the morning for thyroid dysfunction levothyroxine (LEVOXYL) 75 mcg tablet Indications: Hypothyroidism, acquired Take 1 tablet by mouth once daily. Take daily in the morning before eating, Take on empty stomach. For Thyroid 30 tablet 5 07/06/2024 11/21/2024 Discontinued (Discontinued by another Health Care Provider) Start: 11-25-2023 End: 03-26-2024 take 1 tablet by mouth once daily in the morning for thyroid dysfunction levothyroxine (LEVOXYL) 75 mcg tablet Indications: Hypothyroidism, acquired Take 1 tablet by mouth once daily. Take daily in the morning before eating, Take on empty stomach. For Thyroid 30 tablet 3 11/25/2023 03/26/2024 Discontinued Start: 06-23-2023 End: 11-25-2023 take 1 tablet by mouth once daily in the morning for thyroid dysfunction levothyroxine (LEVOXYL) 50 mcg tablet Indications: Hypothyroidism, acquired Take 1 tablet by mouth once daily. Take daily in the morning before eating, Take on empty stomach. For Thyroid 30 tablet 2 11/25/2023 11/25/2023 Discontinued Start: 02-20-2023 take 1 tablet by rene th once daily in the morning for thyroid dysfunction levothyroxine (LEVOXYL) 50 mcg tablet Indications: Hypothyroidism, acquired Take 1 tablet by mouth once daily. Take daily in the morning before eating, Take on empty stomach. For Thyroid 30 tablet 2 02/20/2023 Active Start: 12-19-2022 End: 02-20-2023 take 1 tablet by mouth once daily in the morning for thyroid dysfunction levothyroxine (LEVOXYL) 25 mcg tablet Indications: Hypothyroidism, acquired Take 1 tablet by mouth once daily. Take daily in the morning before eating, Take on empty stomach. For Thyroid 30 tablet 2 12/19/2022 02/20/2023 Discontinued Comment on above: Take 1 tablet by rene th once daily. Take daily in the morning before eating, Take on empty stomach. For Thyroid lisinopril 10 mg oral tablet (20 sources) Angiotensin Converting Enzyme Inhibitor Start: 09-02-2021 lisinopril (ZESTRIL, PRINIVIL) 10 mg tablet Take 1 tablet by mouth once daily. As needed for BLOOD PRESSURE >140/90 30 tablet 2 09/02/2021 Active Start: 06-11-2020 End: 05-06-2021 take 1 tablet by mouth once daily lisinopril (ZESTRIL, PRINIVIL) 10 mg tablet Take 1 tablet by mouth once daily. 30 tablet 2 01/29/2021 05/06/2021 Discontinued Comment on above: Take 1 tablet by rene th once daily. As needed for BLOOD PRESSURE >140/90 Magnesium (20 sources) take 1 tablet by mouth once daily MAGNESIUM ORAL Take 1 tablet by mouth once daily. Active take 1 tablet by mouth once anthony y MAGNESIUM ORAL Take 1 tablet by mouth once daily. 0 Active Comment on above: Take 1 tablet by rene th once daily. meclizine hydrochloride 12.5 mg oral tablet (20 sources) Antiemetic Start: 4 take 1 tablet by mouth every six hours as needed for dizziness meclizine (ANTIVERT) 12.5 mg tab Indications: Vertigo Take 1 tablet by mouth every 6 hours as needed (dizziness). 20 tablet 1 02/08/2024 Active 24 hr metoprolol succinate 25 mg extended release oral tablet (20 sources) beta-Adrenergic [place] Start: 3 take 25 mg by mouth once daily Metoprolol Succinate Active 25 MG PO DAILY October 20, 2022 12:00am Start: 01-25-2020 End: 05-25-2024 take 1 tablet by mouth twice daily as needed metoprolol tartrate, short acting, (LOPRESSOR) 25 mg tablet Indications: Palpitations Take 1 tablet by mouth twice daily as needed (tachycardia, palpitations). 60 tablet 5 09/26/2022 05/25/2024 Discontinued Comment on above: Take 1 tablet by rene th twice daily as needed (tachycardia, palpitations). OTC PRODUCT (14 sources) OTC PRODUCT Appl y to affected area once daily. Silky peach cream for vaginal dryness and tightness Active oxyCODONE hydrochloride 5 mg oral tablet (8 sources) Opioid Agonist Start: 2 End: 2 take 1 tablet by mouth every six hours as needed for pain oxyCODONE 5 MG tablet Indications: Personal history of malignant neoplasm of breast Take 1 tablet by mouth every 6 hours as needed for Severe Pain for up to 3 days. 4 tablet 0 05/27/2022 Active Start: 05-27-2022 End: 05-27-2022 take 1 tablet by mouth every four hours as needed oxyCODONE (ROXICODONE) tablet 5 mg Start: 09-17-2021 take 1 tablet by rene th every six hours as needed oxyCODONE 5 MG tablet Indications: Hematoma , Acute post-operative pain Take 1 tablet by mouth every 6 hours as needed for up to 4 days. 12 tablet 0 09/17/2021 Active Start: 10-19-2019 End: 10-26-2019 take 5 mg by mouth every six hours as needed Oxycodone Discontinued 5 MG PO EVERY 6 HOURS NEEDED 30 7 October 19, 2019 October 26, 2019 12:07am Start: 10-12-2019 End: 10-18-2019 take 5 mg by mouth every six hours as needed Oxycodone Discontinued 5 MG PO EVERY 6 HOURS NEEDED 13 01October 12, 2019 October 18, 2019 12:07am Probiotic Product (PROBIOTIC-10 PO) (5 sources) Probiotic Produc t (PROBIOTIC-10 PO) Take by mouth. 0 Active sertraline 50 mg oral tablet (20 sources) Serotonin Reuptake Inhibitor Start: End: take 1.5 tablets by mouth once daily sertraline (ZOLOFT) 50 mg tablet Indications: Anxiety and depression Take 1.5 tablets by mouth once daily. 135 tablet 3 10/03/2024 Active Start: 04-29-2023 End: 05-29-2023 take 1 tablet by mouth once daily sertraline (ZOLOFT) 100 mg tablet Indications: Situational anxiety , Situational insomnia Take 1 tablet by mouth once daily. 30 tablet 5 04/29/2023 05/29/2023 Active Start: 01-06-2023 End: 04-29-2023 take 1.5 tablets by mouth once daily sertraline (ZOLOFT) 100 mg tablet Indications: Situational anxiety , Situational insomnia Take 1.5 tablets by mouth once daily. 45 tablet 2 02/20/2023 04/29/2023 Discontinued Start: 12-19-2022 End: 01-06-2023 take 1 tablet by mouth once daily sertraline (ZOLOFT) 100 mg tablet Indications: Situational anxiety , Situational insomnia Take 1 tablet by mouth once daily. 90 tablet 1 12/19/2022 01/06/2023 Discontinued Start: 10-20-2022 take 4 tablets by mo [facility] once daily Sertraline (Zoloft) 50 mg tablet Active 200 MG PO DAILY October 20, 2022 10:21am Start: 10-07-2022 End: 11-06-2022 take 2 tablets by mouth once daily sertraline (ZOLOFT) 100 mg tablet Indications: Situational anxiety , Situational insomnia Take 2 tablets by mouth once daily. 180 tablet 1 10/07/2022 10/24/2022 Discontinued Start: 09-26-2022 End: 10-26-2022 take 1 tablet by mouth once daily sertraline (ZOLOFT) 100 mg tablet Indications: Situational anxiety , Situational insomnia Take 1 tablet by mouth once daily. 90 tablet 1 09/26/2022 10/07/2022 Discontinued Start: 09-26-2022 End: 10-07-2022 take 1 tablet by mouth once daily sertraline (ZOLOFT) 50 mg tablet Take 1 tablet by mouth once daily. Take with 100 mg of zoloft to total 150 mg a day 90 tablet 1 09/26/2022 10/07/2022 Discontinued Start: 09-17-2022 End: 09-26-2022 take 1.5 tablets by mouth once daily sertraline (ZOLOFT) 100 mg tablet Indications: Situational anxiety , Situational insomnia Take 1.5 tablets by mouth once daily. 45 tablet 3 09/17/2022 09/26/2022 Discontinued Start: 10-28-2021 End: 10-20-2022 take 3 tablets by mouth once daily Sertraline (Zoloft) 50 mg tablet Discontinued 150 MG PO DAILY October 28, 2021 1:08pm October 20, 2022 10:25am Start: 09-20-2021 End: 03-21-2022 take 1 tablet by mouth once daily sertraline (ZOLOFT) 50 mg tablet Indications: Situational anxiety , Situational insomnia Take 1 tablet by mouth once daily. In addition to 100mg tablet, for total of 150mg daily. 90 tablet 1 09/20/2021 03/21/2022 Discontinued Start: 09-04-2020 End: 09-17-2022 take 1 tablet by mouth once daily sertraline (ZOLOFT) 100 mg tablet Indications: Situational anxiety , Situational insomnia Take 1 tablet by mouth once daily. In addition to 50mg tablet, for total of 150mg daily. 30 tablet 3 05/12/2022 09/17/2022 Discontinued Start: 10-21-2019 End: 10-28-2021 take 2 tablets by mouth once daily Sertraline (Zoloft) 50 mg tablet Discontinued 100 MG PO DAILY October 21, 2019 8:48am October 28, 2021 1:08pm Start: 08-31-2019 End: 10-21-2019 take 1 tablet by mouth once daily Sertraline (Zoloft) 50 mg tablet Discontinued 50 MG PO DAILY August 31, 2019 1:00am October 21, 2019 8:48am Start: 12-16-2017 End: 12-21-2018 take 1 tablet by mouth once daily Sertraline (Zoloft) 100 mg tablet Discontinued 100 MG PO daily December 16, 2017 12:00am December 21, 2018 10:39am take 1.5 tablets by mouth once daily in the morning sertraline 100 MG tablet Take 1.5 tablets by mouth daily every morning. 150 mg daily 0 Active sertraline 100 M G tablet Take 150 mg by mouth daily every morning. 150 mg daily 0 Active Comment on above: Take 1 tablet by rene once daily. In addition to 50mg tablet, for total of 150mg daily. Take 1 tablet by rene once daily. In addition to 100mg tablet, for total of 150mg daily. Take 1 tablet by rene once daily. Take 1 tablet by rene once daily. Take with 100 mg of zoloft to total 150 mg a day Take 1.5 tablets by mouth once daily. Take 2 tablets by [facility] once daily. sodium fluoride 0.011 mg/mg toothpaste (1 source) Start: 01-29-20 21 SF 5000 PLUS 1.1 % CREA Use as directed. 0 01/28/2021 Active sulfamethoxazole 800 mg / trimethoprim 160 mg oral tablet (2 sources) Dihydrofolate Reductase Inhibitor Antibacterial, Sulfonamide Antimicrobial Start: 02-03-20 25 End: 02-10-20 25 take 1 tablet by mouth twice daily sulfamethoxazole -trimethoprim (BACTRIM DS) 800-160 mg per tablet Take 1 tablet by mouth two times a day for 7 days. 14 tablet 02/02/2025 02/09/2025 Active Tacrolimus-[employer] (1 source) Start: 06-11-20 20 Tacrolimus-[employer] No.238 Active 30 GM TP TWICE A DAY June 11, 2020 1:00am vitamin b complex capsule (20 sources) take 1 capsule by mouth once daily vitamin b complex capsule Take 1 capsule by mouth once daily. Active take 1 capsule by mouth once shelia ly vitamin b complex capsule Take 1 capsule by mouth once daily. 0 Active Comment on above: Take 1 capsule by mo uth once daily. Zinc (1 source) Start: 09-04-2020 take 50 mg by mouth once daily Zinc Active 50 MG PO DAILY September 04, 2020 1:00am Completed/Discontinued Medications Medication Drug Class(es) Dates Sig (Normalized) Sig (Original) acetaminophen 325 mg / oxyCODONE hydrochloride 5 mg oral tablet (1 source) Opioid Agonist Start: 11-18-2019 End: 11-24-2019 take 1 tablet by mouth every four hours as needed Oxycodone-Acetamino phen Discontinued 1 - 2 TABLET PO EVERY 4 HOURS NEEDED 23 01November 18, 2019 November 24, 2019 12:02am anastrozole 1 mg oral tablet (2 sources) Aromatase Inhibitor Start: 08-28-2020 End: 03-25-2022 take 1 mg by mouth once daily Anastrozole Discontinued 1 MG PO DAILY September 04, 2020 9:33am March 25, 2022 11:20am azithromycin 250 mg oral tablet (3 sources) Macrolide Antimicrobial Start: 05-17-2024 End: 05-22-2024 take 2 tablets by mouth once daily, then take 1 tablet by mouth once daily azithromycin (ZITHROMAX) 250 mg tablet Indications: Sinobronchitis Take 2 tablets by mouth once daily for 1 day, THEN 1 tablet once daily for 4 days. 6 tablet 05/17/2024 05/22/2024 Start: 06-23-2022 End: 06-28-2022 azithromycin (ZITHROMAX Z-PA K) 250 mg tablet Indications: URI, acute Take 2 tablets day one, then, 1 tablet daily until gone. 6 tablet 0 06/23/2022 06/28/2022 Active Comment on above: Take 2 tablets day o ne, then, 1 tablet daily until gone. benzonatate 100 mg oral capsule (20 sources) Non-narcotic Antitussive Start: 07-21-20 End: 05-25-20 take 2 capsules by mouth three times daily as needed benzonatate (TESSALON PERLE) 100 mg capsule Indications: Sinobronchitis Take 2 capsules by mouth three times a day as needed. 60 capsule 1 07/21/2023 05/25/2024 Discontinued (Course of therapy completed) Start: 09-17-2022 End: 11-24-2022 take 2 capsules by mouth every eight hours as needed benzonatate (TESSALON PERLES) 100 mg capsule Take 2 capsules by mouth three times daily as needed. 30 capsule 0 09/17/2022 11/24/2022 Discontinued Comment on above: Take 2 capsules by m outh three times daily as needed. Take 2 capsules by m outh three times a day as needed. busPIRone hydrochloride 7.5 mg oral tablet (20 sources) Start: End: take 1 tablet by mouth three times daily as needed busPIRone (BUSPAR) 7.5 mg tablet Indications: Sinobronchitis , Anxiety Take 1 tablet by mouth three times a day as needed. 30 tablet 07/21/2023 05/25/2024 Discontinued (Patient chooses alternative therapy) Comment on above: Take 1 tablet by rene three times a day as needed. calcium chloride 0.0014 meq/ml / potassium chloride 0.004 meq/ml / sodium chloride 0.103 meq/ml / sodium lactate 0.028 meq/ml injectable solution (1 source) Start: End: lactated ringers IV solution cholecalciferol 2500 unt / folic acid 1 mg oral tablet (8 sources) Vitamin D End: vitamin D3-folic acid 2,500 unit- 1 mg tab Take by mouth. taking 5000 0 11/24/2022 Discontinued Comment on above: Take by mouth. takin g 5000 clobetasol propionate 0.0005 mg/mg topical ointment (5 sources) Corticosteroid Start: End: Clobetasol Discontinued TOPICAL TWICE A DAY June 11, 2020 1:00am October 20, 2022 10:20am alternate weekly with tacrolimus to bilateral underarm Start: 04-17-2020 End: 11-20-2021 clobetasol (TEMOVATE) 0.05 % ointment Apply 1 application to affected area once daily as needed. 04/17/2020 11/20/2021 Discontinued Comment on above: Apply 1 application to affected area once daily as needed. cyclobenzaprine hydrochloride 10 mg oral tablet (20 sources) Muscle Relaxant Start: 01-21-20 End: 05-25-20 24 take 1 tablet by mouth every eight hours as needed cyclobenzaprine (FLEXERIL) 10 mg tablet Take 1 tablet by mouth every 8 hours as needed for muscle spasm or pain (FOR PAIN OR MUSCLE SPASM). 30 tablet 2 01/20/2023 05/25/2024 Discontinued (Other) Comment on above: Take 1 tablet by rene th every 8 hours as needed for muscle spasm or pain (FOR PAIN OR MUSCLE SPASM). estrogens, conjugated (mcfp) 0.625 mg/ml vaginal cream (2 sources) Estrogen Start: 12-17-19 18 End: 12-22-19 19 Conjugated Estrogens (Premarin) 0.625 mg/gram cream Discontinued 0 VAGINAL .COMPLEX December 16, 2017 12:11pm December 21, 2018 10:39am small amount vaginal opening VAGINAL 2 nights per week Start: 12-16-2017 End: 12-16-2017 Conjugated Estrogens (Premar in) 0.625 mg/gram cream Discontinued VAGINAL December 16, 2017 12:00am December 16, 2017 12:11pm exemestane 25 mg oral tablet (9 sources) Aromatase Inhibitor Start: 12-07-2020 End: 03-31-2021 take 1 tablet by mouth once daily after mealtime exemestane (AROMASIN) 25 mg tablet Take 1 tablet by mouth once daily. TAKE AFTER A MEAL. 90 tablet 3 12/07/2020 03/31/2021 Discontinued Comment on above: Take 1 tablet by rene th once daily. TAKE AFTER A MEAL. ezetimibe 10 mg oral tablet (20 sources) Dietary Cholesterol Absorption Inhibitor Start: 04-26-2024 End: 10-03-2024 take 1 tablet by mouth once daily at bedtime ezetimibe (ZETIA) 10 mg tablet Indications: Dyslipidemia Take 1 tablet by mouth once daily. At supper or bedtime 90 tablet 3 04/26/2024 10/03/2024 Discontinued Start: 01-30-2021 End: 04-24-2024 take 1 tablet by mouth once daily at bedtime ezetimibe (ZETIA) 10 mg tablet Indications: Dyslipidemia Take 1 tablet by mouth once daily. At supper or bedtime 90 tablet 1 01/30/2021 09/02/2021 Discontinued Comment on above: Take 1 tablet by rene th once daily. At supper or bedtime 1 ml haloperidol 5 mg/ml injection (1 source) Typical Antipsychotic Start: 2021 End: 2021 haloperidol lactate (HALDOL) injection 1 mg HYDROmorphone (DILAUDID) injection 0.2 mg (1 source) Start: 2021 End: 2021 HYDROmorphone (DILAUDID) injection 0.2 mg lansoprazole 30 mg delayed release oral capsule (4 sources) Proton Pump Inhibitor Start: 2023 End: 2024 take 1 capsule by mouth once daily before breakfast lansoprazole (PREVACID) 30 mg capsule Indications: Throat pain Take 1 capsule by mouth daily before breakfast. For acid reflux, 1/2 hr before meal. 90 capsule 1 07/06/2024 10/03/2024 Discontinued 10 ml lidocaine hydrochloride 10 mg/ml injection (1 source) Antiarrhythmic, Amide Local Anesthetic Start: 2021 End: 2021 lidocaine 1% (PF) (XYLOCAINE MPF) 1 % injection 0.1-0.3 mL nystatin [id number] unt/ml topical cream (5 sources) Polyene Antifungal Start: 2023 End: 2023 nystatin (MYCOSTATIN) cream Indications: Rash Apply to affected area two times a day for 7 days. To rash 30 g 1 11/25/2023 12/02/2023 2 ml ondansetron 2 mg/ml injection (1 source) Serotonin-3 Receptor Antagonist Start: 2021 End: 2021 take 4 mg intravenously every four hours as needed ondansetron 4mg/2ml (ZOFRAN) injection 4 mg potassium chloride 10 meq extended release oral tablet (3 sources) Start: 2021 End: 2021 take 1 tablet by mouth once daily at breakfast potassium chloride (K-TAB) 10 mEq tablet Indications: Muscle cramp Take 1 tablet by mouth daily with breakfast. 30 tablet 1 03/21/2022 05/23/2022 Discontinued Comment on above: Take 1 tablet by rene th daily with breakfast. pramipexole dihydrochloride 0.125 mg oral tablet (20 sources) Nonergot Dopamine Agonist Start: 2022 End: 2023 take 1 tablet by mouth once daily at bedtime pramipexole (MIRAPEX) 0.125 mg tablet Indications: Restless leg syndrome Take 1 tablet by mouth daily at bedtime. 60 tablet 2 09/08/2022 05/25/2024 Discontinued Start: 12-09-2021 End: 09-08-2022 take 1-2 tablets by mouth three times daily pramipexole (MIRAPEX) 0.5 mg tablet Indications: Restless legs Take 1-2 tablets by mouth three times daily. 30 tablet 3 12/09/2021 09/08/2022 Discontinued Comment on above: Take 1-2 tablets by mouth three times daily. Take 1 tablet by rene th daily at bedtime. 2 ml prochlorperazine 5 mg/ml injection (1 source) Phenothiazine Start : 05-27 End: 05-27 prochlorperazine (COMPAZINE) injection 5 mg 1 ml promethazine hydrochloride 25 mg/ml injection (1 source) Phenothiazine Start : 05-27 End: 05-27 take 12.5 mg intravenously every six hours as needed promethazine (PHENERGAN) injection 12.5 mg Scopolamine (1 source) Anticholinergic Start : 05-27 End: 05-27 scopolamine (TRANSDERM-SCOP) patch 1 patch tacrolimus-niacinamid e 0.1-4 % ointment (2 sources) End: 05-15 tacrolimus-niacinamid e 0.1-4 % ointment Apply 1 application to affected area once daily as needed. 05/15/2021 Discontinued traZODone hydrochloride 50 mg oral tablet (12 sources) Serotonin Reuptake Inhibitor Start : 12-19 End: 05-23 take 1-2 tablets by mouth once daily at bedtime as needed traZODone (DESYREL) 50 mg tablet Take 1-2 tablets by mouth daily at bedtime. As needed for insomnia 60 tablet 1 12/20/2019 05/23/2022 Discontinued Comment on above: Take 1-2 tablets by mouth daily at bedtime. As needed for insomnia triamcinolone acetonide 1 mg/ml topical cream (20 sources) Corticosteroid Start : 11-24 End: 12-01 triamcinolone acetonide (KENALOG) 0.1 % cream Indications: Rash Apply 1 application to affected area two times a day for 7 days. Apply sparingly to area for rash/itching. 30 g 1 11/25/2023 12/02/2023 Start: 04-29-2023 triamcinolone acetonide (KENALOG) 0.5 % cream Indications: Skin plaque Apply 1 application to affected area two times a day. For rash/itching. Apply sparingly. Avoid face/skin fold. 15 g 1 04/29/2023 Active Comment on above: Apply 1 application to affected area two times a day. For rash/itching. Apply sparingly. Avoid face/skin fold. Vitamin B Comp And C No.3 (B Complex Plus Vitamin C) 53-04-75-5-300 mg capsule (1 source) Start: 09-04-2020 End: 10-20-2022 Vitamin B Comp And C No.3 (B Complex Plus Vitamin C) 26-91-43-5-300 mg capsule Discontinued 1 CAP PO DAILY September 04, 2020 1:00am October 20, 2022 10:21am give with food (meal/snack) Problems Active Problems Problem Classification Problem Date Documented Da te Episodic/Chronic Anxiety disorders (20 sources) Anxiety; Translations: [Other specified anxiety disorders] Onset: 09-30-2016 02-11-2021 Chronic Cancer of breast (20 sources) Malignant neoplasm of upper-outer quadrant of female breast; Translations: [Malignant neoplasm of upper-outer quadrant of right female breast] Onset: 06-27-2005 02-11-2021 Chronic Cancer of breast (15 sources) History of malignant neoplasm of breast; Translations: [Personal history of malignant neoplasm of breast] Onset: 06-04-2020 02-11-2021 Episodic Deficiency and other anemia (20 sources) Anemia in neoplastic disease; Translations: [Anemia in neoplastic disease] Onset: 08-18-2005 08-18-2005 Chronic Deficiency and other anemia (1 source) Iron deficiency anemia due to blood loss; Translations: [Iron deficiency anemia secondary to blood loss (chronic)] 03-30-2024 Chronic Deficiency and other anemia (1 source) Iron deficiency anemia secondary to blood loss (chronic); Translations: [Iron deficiency anemia due to chronic blood loss] Onset: 05-06-2017 Chronic Deficiency and other anemia (2 sources) Anemia; Translations: [Anemia, unspecified] Onset: 08-18-2005 02-11-2021 Episodic Diseases of mouth; excluding dental (1 source) Oral lesion; Translations: [Other lesions of oral mucosa] Episodic Diseases of white blood cells (20 sources) Neutropenia; Translations: [Neutropenia, unspecified] Onset: 10-20-2005 02-11-2021 Chronic Disorders of lipid metabolism (20 sources) Dyslipidemia; Translations: [Hyperlipidemia, unspecified] Onset: 05-06-2017 02-11-2021 Chronic Essential hypertension (5 sources) Benign essential hypertension; Translations: [Essential (primary) hypertension] Onset: 07-30-2021 07-30-2021 Chronic Fracture of upper limb (1 source) Closed fracture of distal end of radius; Translations: [Unspecified fracture of the lower end of left radius, subsequent encounter for closed fracture with routine healing] 02-01-2025 Episodic Menopausal disorders (2 sources) Atrophic vaginitis; Translations: [Postmenopausal atrophic vaginitis] 10-20-2022 Chronic Miscellaneous mental health disorders (20 sources) Insomnia; Translations: [Other insomnia not due to a substance or known physiological condition] Onset: 09-30-2016 02-11-2021 Chronic Mood disorders (14 sources) Depressive disorder; Translations: [Major depressive disorder, single episode, unspecified] Onset: 02-11-2021 02-11-2021 Chronic Mood disorders (6 sources) Mood disorders; Translations: [Anxiety and depression] Onset: 11-11-2021 Resolved: 06-02-2022 11-11-2021 Nutritional deficiencies (20 sources) Vitamin D deficiency; Translations: [Vitamin D deficiency, unspecified] Onset: 01-03-2011 02-11-2021 Chronic Other aftercare (7 sources) Patient encounter status; Translations: [Encounter for follow-up examination after completed treatment for conditions other than malignant neoplasm] Episodic Other bone disease and musculoskeletal deformities (1 source) Disorder of skeletal system; Translations: [Disorder of bone, unspecified] 08-04-2024 Episodic Other connective tissue disease (2 sources) Disorder of soft tissue; Translations: [Soft tissue disorder, unspecified] Onset: 02-11-2021 02-11-2021 Episodic Other diseases of veins and lymphatics (20 sources) Lymphedema of upper limb; Translations: [Lymphedema, not elsewhere classified] Onset: 11-14-2022 Chronic Other female genital disorders (20 sources) Abnormal uterine bleeding; Translations: [Abnormal uterine and vaginal bleeding, unspecified] Onset: 07-09-2012 02-11-2021 Chronic Other female genital disorders (20 sources) Pain in female genitalia on intercourse; Translations: [Unspecified dyspareunia] Onset: 12-20-2019 02-11-2021 Chronic Other female genital disorders (1 source) Dyspareunia; Translations: [Dyspareunia] 03-11-2019 Chronic Other hereditary and degenerative nervous system conditions (20 sources) Restless legs; Translations: [Restless legs syndrome] Onset: 12-10-2021 Chronic Other injuries and conditions due to external causes (2 sources) Late effect of radiation; Translations: [Radiation sickness, unspecified, sequela] Onset: 02-11-2021 02-11-2021 Episodic Other injuries and conditions due to external causes (6 sources) Injury of left wrist; Translations: [Unspecified injury of left wrist, hand and finger(s), initial encounter] 01-01-2025 Episodic Other injuries and conditions due to external causes (2 sources) Unspecified injury of left wrist, hand and finger(s), initial encounter; Translations: [Injury of left wrist, initial encounter] Onset: 01-01-2025 Episodic Other lower respiratory disease (1 source) Shortness of breath; Translations: [SOB (shortness of breath)] Onset: 11-26-2023 Episodic Other skin disorders (1 source) Eruption; Translations: [Rash and other nonspecific skin eruption] 11-25-2023 Episodic Other upper respiratory infections (2 sources) Chronic sinusitis; Translations: [Chronic sinusitis, unspecified] Chronic Residual codes; unclassified (2 sources) Family history of breast cancer; Translations: [Family history of malignant neoplasm of breast] Onset: 02-11-2021 02-11-2021 Episodic Residual codes; unclassified (1 source) History of right mastectomy; Translations: [Other specified postprocedural states] 08-31-2019 Episodic Residual codes; unclassified (1 source) Acquired absence of breast; Translations: [Acquired absence of right breast and nipple] 10-11-2019 Episodic Residual codes; unclassified (1 source) Family history of malignant neoplasm of skin; Translations: [Family history of malignant neoplasm of other organs or systems] 10-11-2019 Episodic Thyroid disorders (20 sources) Acquired hypothyroidism; Translations: [Hypothyroidism, unspecified] Onset: 12-19-2022 12-19-2022 Chronic Unclassified (1 source) Size of breasts unequal; Translations: [Unequal size of breasts] Onset: 02-11-2021 02-11-2021 Unclassified (1 source) Patient encounter status 11-22-2024 Urinary tract infections (2 sources) Recurrent urinary tract infection; Translations: [Urinary tract infection, site not specified] Onset: 02-01-2025 10-03-2024 Episodic Past or Other Problems Problem Classification Problem Date Documented Date Episodic/Chronic Cardiac dysrhythmias (20 sources) Palpitations; Translations: [Palpitations] Onset: 09-26-2022 Episodic Conditions associated with dizziness or vertigo (20 sources) Vertigo; Translations: [Dizziness and giddiness] Onset: 08-05-2023 02-20-2023 Episodic Deficiency and other anemia (20 sources) Iron deficiency anemia; Translations: [Iron deficiency anemia, unspecified] Onset: 02-19-2006 02-11-2021 Episodic Diabetes mellitus without complication (20 sources) Hyperglycemia; Translations: [Hyperglycemia, unspecified] Onset: 09-05-2020 02-11-2021 Episodic Genitourinary symptoms and ill-defined conditions (20 sources) Dysuria; Translations: [Dysuria] Onset: 02-08-2024 12-01-2023 Episodic Malaise and fatigue (20 sources) Fatigue; Translations: [Other fatigue] Onset: 09-03-2021 09-03-2021 Episodic Mycoses (20 sources) Onychomycosis; Translations: [Tinea unguium] Onset: 12-20-2019 02-11-2021 Episodic Nonmalignant breast conditions (20 sources) Breast lump; Translations: [Unspecified lump in the right breast, overlapping quadrants] Onset: 04-19-2019 02-11-2021 Episodic Other aftercare (2 sources) Encounter for follow-up examination after completed treatment for conditions other than malignant neoplasm; Translations: [Encounter for follow-up examination after completed treatment for conditions other than malignant neoplasm] Onset: 11-11-2021 Episodic Other and unspecified benign neoplasm (20 sources) Dysplastic nevus of skin; Translations: [Melanocytic nevi, unspecified] Onset: 12-03-2020 02-11-2021 Episodic Other bone disease and musculoskeletal deformities (20 sources) Osteopenia; Translations: [Other specified disorders of bone density and structure, multiple sites] Onset: 03-24-2022 Episodic Other bone disease and musculoskeletal deformities (1 source) Disorder of bone, unspecified; Translations: [Disorder of bone and cartilage] Onset: 08-04-2024 Episodic Other bone disease and musculoskeletal deformities (1 source) Disorder of cartilage, unspecified; Translations: [Disorder of bone and cartilage] Onset: 08-04-2024 Episodic Other circulatory disease (20 sources) Elevated blood-pressure reading without diagnosis of hypertension; Translations: [Elevated blood-pressure reading, without diagnosis of hypertension] Onset: 04-19-2019 02-11-2021 Episodic Other connective tissue disease (20 sources) Soft tissue lesion of shoulder region; Translations: [Bursopathy, unspecified] Onset: 10-03-2013 02-11-2021 Episodic Other connective tissue disease (20 sources) Tendonitis of right shoulder; Translations: [Other enthesopathies, not elsewhere classified] Onset: 12-20-2019 02-11-2021 Episodic Other connective tissue disease (20 sources) Muscle pain; Translations: [Myalgia, unspecified site] Onset: 12-10-2021 Episodic Other connective tissue disease (20 sources) Cramp; Translations: [Cramp and spasm] Onset: 03-24-2022 Episodic Other connective tissue disease (20 sources) Swelling of upper limb; Translations: [Other specified soft tissue disorders] Onset: 11-14-2022 Episodic Other connective tissue disease (19 sources) Cramp in lower limb; Translations: [Cramp and spasm] Onset: 07-06-2024 07-06-2024 Episodic Other connective tissue disease (1 source) Myalgia, unspecified site; Translations: [Myalgia] Onset: 12-10-2021 Episodic Other female genital disorders (20 sources) Enlarged uterus; Translations: [Hypertrophy of uterus] Onset: 07-09-2012 02-11-2021 Episodic Other female genital disorders (20 sources) Mass of uterus; Translations: [Other specified noninflammatory disorders of uterus] Onset: 07-09-2012 02-11-2021 Episodic Other female genital disorders (2 sources) Other specified noninflammatory disorders of vagina; Translations: [Other specified noninflammatory disorders of vagina] Onset: 09-30-2021 Episodic Other injuries and conditions due to external causes (5 sources) Hematoma; Translations: [Other injury of unspecified body region, initial encounter] Onset: 09-13-2021 09-13-2021 Episodic Other injuries and conditions due to external causes (2 sources) Other injury of unspecified body region, initial encounter; Translations: [Other injury of unspecified body region, initial encounter] Onset: 09-13-2021 Episodic Other lower respiratory disease (20 sources) Dyspnea; Translations: [Shortness of breath] Onset: 11-25-2023 11-25-2023 Episodic Other nervous system disorders (2 sources) Other acute postprocedural pain; Translations: [Other acute postprocedural pain] Onset: 09-17-2021 Episodic Other non-traumatic joint disorders (20 sources) Pain in right knee; Translations: [Pain in joint, lower leg] Onset: 04-19-2019 02-11-2021 Episodic Other non-traumatic joint disorders (20 sources) Chronic pain of right upper limb; Translations: [Pain in right shoulder] Onset: 12-20-2019 02-11-2021 Episodic Other non-traumatic joint disorders (20 sources) Effusion of right knee joint; Translations: [Effusion, right knee] Onset: 04-19-2019 02-11-2021 Episodic Other non-traumatic joint disorders (20 sources) Shoulder joint pain; Translations: [Pain in unspecified shoulder] Onset: 10-03-2013 02-11-2021 Episodic Other non-traumatic joint disorders (20 sources) Multiple joint pain; Translations: [Pain in unspecified joint] Onset: 12-10-2021 Episodic Other nutritional; endocrine; and metabolic disorders (20 sources) Body mass index 25-29 - overweight; Translations: [Overweight] Onset: 11-15-2018 02-11-2021 Episodic Other screening for suspected conditions (not mental disorders or infectious disease) (20 sources) Thyroid function tests abnormal; Translations: [Abnormal results of thyroid function studies] Onset: 03-24-2022 Episodic Other skin disorders (20 sources) Lamellar nail splitting; Translations: [Nail dystrophy] Onset: 11-24-2022 Episodic Other upper respiratory disease (19 sources) Pain in throat; Translations: [Pain in throat] Onset: 07-06-2024 07-06-2024 Episodic Other upper respiratory infections (20 sources) Acute upper respiratory infection; Translations: [Acute upper respiratory infection, unspecified] Onset: 06-23-2022 Episodic Otitis media and related conditions (20 sources) Acute transudative otitis media; Translations: [Other acute nonsuppurative otitis media, bilateral] Onset: 11-25-2023 11-25-2023 Episodic Residual codes; unclassified (20 sources) Postmenopausal state; Translations: [Asymptomatic menopausal state] Onset: 12-20-2019 02-11-2021 Episodic Residual codes; unclassified (9 sources) H/O: artificial organ/tissue; Translations: [Other specified postprocedural states] Onset: 08-26-2021 09-03-2021 Episodic Residual codes; unclassified (16 sources) History of breast reconstruction; Translations: [Other specified postprocedural states] Onset: 08-26-2021 09-03-2021 Episodic Residual codes; unclassified (2 sources) Other specified postprocedural states; Translations: [Other specified postprocedural states] Onset: 08-26-2021 Episodic Residual codes; unclassified (1 source) Estrogen receptor positive status [ER+]; Translations: [Malignant neoplasm of upper-outer quadrant of right breast in female, estrogen receptor positive (HCC)] Onset: 05-25-2018 Episodic Spondylosis; intervertebral disc disorders; other back problems (20 sources) Spasm of back muscles; Translations: [Muscle spasm of back] Onset: 01-20-2023 Episodic Unclassified (1 source) VAGINOPLASTY 02-13-2022 Unclassified (7 sources) Injury of left wrist 01-02-2025 Results Test Name Value Interpretation Reference Range Facility Bacteria Ur Culton Bacteria identified Cx Nom (U) CULTURE, URINE: Mixed microbiota, including predominantly: ORGANISM ID: 1 >=100,000 CFU/ml Escherichia coli ORGANISM ID: 1 (ESCHERICHIA COLI) ANTIBIOTIC INTERPRETATION KEKE STATUS REFERENCE RANGE Ampicillin S <=2 F Susceptible <=8 , Intermediate >8 , Resistant >16 Cefazolin S <=4 F Susceptible 0-16 , Intermediate <0 or >16 , Resistant >16 For uncomplicated urinary tract infections, cefazolin results can be used to predict susceptibility or resistance to cephalexin. Ceftriaxone S <=1 F Susceptible <=1 , Intermediate >1 , Resistant >=4 Cefepime S <=1 F Susceptible <=2 , Susceptible-Dose Dependent >2 , Resistant >=16 Ertapenem S <=0.5 F Susceptible <=0.5 , Intermediate >.5 , Resistant >1 Meropenem S <=0.25 F Susceptible <=1 , Intermediate >1 , Resistant >2 Ampicillin/Sulbact S <=2 F Susceptible <=8 , Intermediate >8 , Resistant >16 Piperacillin/Tazobac S <=4 F Susceptible <16 , Susceptible-Dose Dependent >=16 , Resistant >=32 Gentamicin S <=1 F Susceptible <=2 , Intermediate >2 , Resistant >=8 Tobramycin S <=1 F Susceptible <4 , Intermediate >=4 , Resistant >=8 Trimeth sulfameth S <=20 F Susceptible <=40 , Resistant >40 Ciprofloxacin S <=0.25 F Susceptible <0.5 , Intermediate >=.5 , Resistant >=1 Nitrofurantoin S <=16 F Susceptible <=32 , Intermediate >32 , Resistant >64 Abnormal [facility] Comment on above: Performed By: #### 6 30-4 ####[facility] [id number] [place] [address] [place] CBC panel Auto (Bld)on 02-01 Erythrocyte distribution width (RBC) [Ratio] 12.7 % Normal 11.5-15.0 [facility] Comment on above: Order Comment: Speci men Type: BLOOD SPECIMENOrdering Facility: [facility] Address: [address] [place] [address] Performed By: #### 5 8410-2 ####[facility] [id number] [place] [address] [place] Hematocrit (Bld) [Volume fraction] 42.0 % Normal 36.0-46.0 [facility] Comment on above: Order Comment: Speci men Type: BLOOD SPECIMENOrdering Facility: [facility] Address: [address] [place] [address] Performed By: #### 5 8410-2 ####[facility] [id number] [place] [address] [place] Hemoglobin (Bld) [Mass/Vol] 14.0 g/dL Normal 11.5-15.5 [facility] Comment on above: Order Comment: Speci men Type: BLOOD SPECIMENOrdering Facility: [facility] Address: [address] [place] [address] Performed By: #### 5 8410-2 ####[facility] [id number] [place] [address] [place] MCH (RBC) [Entitic mass] 30.0 pg Normal 26.0-34.0 [facility] Comment on above: Order Comment: Speci men Type: BLOOD SPECIMENOrdering Facility: [facility] Address: [address] [place] [address] Performed By: #### 5 8410-2 ####[facility] [id number] [place] [id number] [place] MCHC (RBC) [Mass/Vol] 33.3 g/dL Normal 30.5-36.0 [facility] Comment on above: Order Comment: Speci men Type: BLOOD SPECIMENOrdering Facility: [facility] Address: [address] [place] [address] Performed By: #### 5 8410-2 ####[facility] [id number] [place] [address] [place] MCV (RBC) [Entitic vol] 90.1 fL Normal 80.0-100.0 [facility] Comment on above: Order Comment: Speci men Type: BLOOD SPECIMENOrdering Facility: [facility] Address: [address] [place] [address] Performed By: #### 5 8410-2 ####[facility] [id number] [place] [address] [place] Nucleated RBC (Bld) [#/Vol] 10*3/uL Normal <0.01 [facility] Comment on above: Order Comment: Speci men Type: BLOOD SPECIMENOrdering Facility: [facility] Address: [address] [place] [address] Performed By: #### 5 8410-2 ####[facility] [id number] [place] [address] [place] Platelet mean volume (Bld) [Entitic vol] 9.5 fL Normal 9.0-12.7 [facility] Comment on above: Order Comment: Speci men Type: BLOOD SPECIMENOrdering Facility: [facility] Address: [address] [place] [address] Performed By: #### 5 8410-2 ####[facility] [id number] [place] [address] [place] Platelets (Bld) [#/Vol] 179 10*3/uL Normal 150-400 [facility] Comment on above: Order Comment: Speci men Type: BLOOD SPECIMENOrdering Facility: [facility] Address: [address] [place] [address] Performed By: #### 5 8410-2 ####[facility] [id number] [place] [address] [place] RBC (Bld) [#/Vol] 4.66 10*6/uL Normal 3.90-5.20 [facility] Comment on above: Order Comment: Speci men Type: BLOOD SPECIMENOrdering Facility: [facility] Address: [address] [place] [address] Performed By: #### 5 8410-2 ####[facility] [id number] [place] [address] [place] WBC (Bld) [#/Vol] 6.69 10*3/uL Normal 3.70-11.00 [facility] Comment on above: Order Comment: Speci men Type: BLOOD SPECIMENOrdering Facility: [facility] Address: [address] [place] [address] Performed By: #### 5 8410-2 ####[facility] [id number] [place] [address] [place] CNOVon 02-01-2025 CNOV Office Visit (FRWS) DOREEN BETANCUR ([id number]) 1960 F Date Time Provider Department 02/01/25 1:00 PM ETHAN MCKEONREECE During your visit today, we recorded the following information about you: Ethan Mckeon V, DO 02/01/2025 2:05 PM Signed Subjective Doreen Betancur is a 65-year-old female presenting for follow-up of a left wrist fracture. Doreen is 4 weeks post-injury and reports improvement in symptoms, though she still experiences discomfort, particularly when engaging in activities that require the use of both arms, such as gardening and lifting her grandchildren. She notes that the pain is not as severe as it was initially but is still present with certain movements. She describes a recent episode of aching pain after a day of increased activity with her grandchildren. 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 She was wearing her brace at the time and believes it prevented further injury. Musculoskeletal: (+) generalized myalgia, (+) back pain, (+) arm pain, (+) left wrist pain Neurological: (-) numbness, (-) paresthesia Psychiatric: (+) restless sleep Objective Last menstrual period 08/10/2012. General: No acute distress. MSK/Ext: Left wrist and hand: Able to give thumbs up; mild discomfort with thumb extension; normal strength; no evidence of nerve or vascular injury. Imaging: - (Today) X-ray: Demonstrates sclerosis at the fracture site consistent with stable healing; no evidence of nerve or vascular compromise. Assessment AND Plan 1. Traumatic closed nondisplaced fracture of distal end of left radius, with routine healing, subsequent encounter (S57.501C) Healing as expected at 4 weeks post-injury. X-ray shows sclerosis indicating stability. No signs of nerve or vascular injury. Mild discomfort with certain movements, but overall improvement noted. - Continue wearing the splint during active movements and at night if sleep is restless. - Begin removing the splint during sedentary activities such as watching TV or reading. - Encourage range of motion exercises including wrist flexion, extension, and thumb movements to prevent stiffness. - Follow-up in 3 weeks with repeat x-ray to assess further healing progress. Recording using [employer] software for draft documentation of the visit was discussed with the patient/authorized technical services representative; all questions welcomed and answered. Patient/authorized technical services representative agreed to proceed Referring Provider: MATTEHW MAKI [[id number]] Allergies As of Date: 02/01/2025 Noted Allergy Reaction PENICILLINS 05/06/2005 5 - Intolerance Comments: Unknown reaction as a child DEXTROMETHORPHAN 09/17/2022 1 - Mental Status Change Comments: anxiety MACROBID (NITROFURANTOIN MONOHYD/*12/23/2006 Comments: Hot, cold, achy PHENYLEPHRINE 09/17/2022 5 - Intolerance Comments: anxiety PREDNISONE 12/26/2020 14 - Other: See Comments Comments: Heart palpitations ZETIA (EZETIMIBE) 10/03/2024 17 - Myalgia Comments: Muscle aches and joint pains SE ADHESIVE TAPE (ROSINS) 07/30/2005 5 - Intolerance Comments: Erythema after ribbon tape Date Reviewed: 02/01/2025 Reviewed by: Teressa Mercado LPN - Fully Assessed Primary Visit Diagnosis:Traumatic closed nondisplaced fracture of distal end of left radius, with routine healing, subsequent encounter [S52.502D] Prescriptions as of 02/01/2025 - DULoxetine (CYMBALTA) 60 mg capsule Take 1 capsule by mouth once daily. - levothyroxine (LEVOXYL) 75 mcg tablet Take 1 tablet by mouth once daily. Take daily in the morning before eating, Take on empty stomach. For Thyroid - cyclobenzaprine HCl (FLEXERIL ORAL) Take 10 mg by mouth as needed. - OTC PRODUCT Apply to affected area once daily. Silky peach cream for vaginal dryness and tightness - letrozole (FEMARA) 2.5 mg tablet Take 1 tablet by mouth once daily. - sertraline (ZOLOFT) 50 mg tablet Take 1.5 tablets by mouth once daily. - meclizine (ANTIVERT) 12.5 mg tab Take 1 tablet by mouth every 6 hours as needed (dizziness). - triamcinolone acetonide (KENALOG) 0.5 % cream Apply 1 application to affected area two times a day. For rash/itching. Apply sparingly. Avoid face/skin fold. - clonazePAM (KLONOPIN) 0.5 mg tablet Take 1 tablet by mouth twice daily as needed for anxiety for up to 30 days. - cholecalciferol (VITAMIN D3) 5,000 unit tab Take 5,000 Units by mouth once daily. - MAGNESIUM ORAL Take 1 tablet by mouth once daily. - lisinopril (ZESTRIL, PRINIVIL) 10 mg tablet Take 1 tablet by mouth once daily. As needed for BLOOD PRESSURE >140/90 - vitamin b complex capsule Take 1 capsule by mouth once daily. - Lactobacillus acidophilus (PROBIOTIC ORAL) Take 1 capsule by mouth once daily. Problem List As Of Date 02/01/2025 Noted Resolved Mal (more content not included)... Normal [facility] Comprehensive metabolic 2000 panelon 02-01-2025 Albumin [Mass/Vol] 4.4 g/dL Normal 3.9-4.9 [facility] Comment on above: Order Comment: Speci men Type: BLOOD SPECIMENOrdering Facility: [facility] Address: [address] [place] [address] Performed By: #### 2 4323-8 ####[facility] [id number] [place] [address] [place] ALP [Catalytic activity/Vol] 104 U/L Normal 34-123 [facility] Comment on above: Order Comment: Speci men Type: BLOOD SPECIMENOrdering Facility: [facility] Address: [address] [place] [address] Performed By: #### 2 4323-8 ####[facility]ILL[facility]OWNCL[facility] [id number] [place] [address] [place] ALT [Catalytic activity/Vol] 18 U/L Normal 7-38 [facility] Comment on above: Order Comment: Speci men Type: BLOOD SPECIMENOrdering Facility: [facility] Address: [address] [place] [address] Performed By: #### 2 4323-8 ####[facility]ILL[facility]OWNCL[facility] [id number] [place] [address] [place] Anion gap [Moles/Vol] 13 mmol/L Normal 8-15 [facility] Comment on above: Order Comment: Speci men Type: BLOOD SPECIMENOrdering Facility: [facility] Address: [address] [place] [address] Performed By: #### 2 4323-8 ####[facility]ILL[facility]OWNCL[facility] [id number] [place] [address] [place] AST [Catalytic activity/Vol] 17 U/L Normal 13-35 [facility] Comment on above: Order Comment: Speci men Type: BLOOD SPECIMENOrdering Facility: [facility] Address: [address] [place] [address] Performed By: #### 2 4323-8 ####[facility]AR[facility]OSPITALWNCLIA [id number] [place] [address] [place] Bilirubin [Mass/Vol] 0.5 mg/dL Normal 0.2-1.[address] [facility] Comment on above: Order Comment: Speci men Type: BLOOD SPECIMENOrdering Facility: [facility] Address: [address] [place] [address] Performed By: #### 2 4323-8 ####[facility] [id number] [place] [address] [place] Calcium [Mass/Vol] 10.0 mg/dL Normal 8.5-10.2 [facility] Comment on above: Order Comment: Speci men Type: BLOOD SPECIMENOrdering Facility: [facility] Address: [address] [place] [address] Performed By: #### 2 4323-8 ####[facility]ITAL[facility]CL[facility] [id number] [place] [address] [place] Chloride [Moles/Vol] 103 mmol/L Normal 98-[address] [facility] Comment on above: Order Comment: Speci men Type: BLOOD SPECIMENOrdering Facility: [facility] Address: [address] [place] [address] Performed By: #### 2 4323-8 ####[facility] MILLTOWNCLIA [id number] [place] [address] [place] CO2 [Moles/Vol] 22 mmol/L Normal 22-30 [facility] Comment on above: Order Comment: Speci men Type: BLOOD SPECIMENOrdering Facility: [facility] Address: [address] [place] [address] Performed By: #### 2 4323-8 ####[facility] JENNYENGLANDNCHOLLEY [id number] [place] [address] [place] Creatinine [Mass/Vol] 0.74 mg/dL Normal 0.58-0.96 [facility] Comment on above: Order Comment: Speci men Type: BLOOD SPECIMENOrdering Facility: [facility] Address: [address] [place] [address] Performed By: #### 2 4323-8 ####[facility] [id number] [place] [address] [place] Creatinine and Glomerular filtration rate.predicted panel (S/P/Bld) 91 mL/min/1.73m??? Normal >=60 [facility] Comment on above: Order Comment: Speci men Type: BLOOD SPECIMENOrdering Facility: [facility] Address: [address] [place] [address] Result Comment: Tessie mated Glomerular Filtration Rate (eGFR) is calculated using the 2020 CKD-EPI creatinine equation. This equation utilizes serum creatinine, sex, and age as parameters. The creatinine assay has traceable calibration to isotope dilution-mass spectrometry. Refer to KDIGO guidelines for clinical interpretation. In patients with unstable renal function, e.g. those with acute kidney injury, the eGFR may not accurately reflect actual GFR. Performed By: #### 2 4323-8 ####[facility] [id number] [place] [address] [place] Glucose [Mass/Vol] 130 mg/dL High 74-99 [facility] Comment on above: Order Comment: Speci men Type: BLOOD SPECIMENOrdering Facility: [facility] Address: [address] [place] [address] Result Comment: The [place] Diabetes Association (ADA) provides guidance for cutoff values for fasting glucose and random glucose. The ADA defines fasting as no caloric intake for at least 8 hours. Fasting plasma glucose results between 100 to 125 mg/dL indicate increased risk for diabetes (prediabetes). Fasting plasma glucose results greater than or equal to 126 mg/dL meet the criteria for diagnosis of diabetes. In the absence of unequivocal hyperglycemia, results should be confirmed by repeat testing. In a patient with classic symptoms of hyperglycemia or hyperglycemic crisis, random plasma glucose results greater than or equal to 200 mg/dL meet the criteria for diagnosis of diabetes. Reference: Standards of Medical Care in Diabetes 2016, [place] Diabetes Association. Diabetes Care. 2016.39(Suppl 1). Performed By: #### 2 4323-8 ####[facility]ILL[facility]OWNCL[facility] [id number] [place] [address] [place] Potassium [Moles/Vol] 3.9 mmol/L Normal 3.7-5.1 [facility] Comment on above: Order Comment: Speci men Type: BLOOD SPECIMENOrdering Facility: [facility] Address: [address] [place] [address] Performed By: #### 2 4323-8 ####[facility]ILL[facility]OWNCL[facility] [id number] [place] [address] [place] Protein [Mass/Vol] 7.4 g/dL Normal 6.3-8.0 [facility] Comment on above: Order Comment: Speci men Type: BLOOD SPECIMENOrdering Facility: [facility] Address: [address] [place] [address] Performed By: #### 2 4323-8 ####[facility] MILLTOWNCLIA [id number] [place] [address] [place] Sodium [Moles/Vol] 138 mmol/L Normal 136-144 [facility] Comment on above: Order Comment: Speci men Type: BLOOD SPECIMENOrdering Facility: [facility] Address: [address] [place], [place] [address] Performed By: #### 2 4323-8 ####[facility]ILL[facility]OWNCL[facility] [id number] [place] [address] [place] Urea nitrogen [Mass/Vol] 16 mg/dL Normal 7-21 [facility] Comment on above: Order Comment: Belli men Type: BLOOD SPECIMENOrdering Facility: [facility] Address: [address] [place] [address] Performed By: #### 2 4323-8 ####[facility] [id number] [place] [address] [place] HbA1c (Bld)on 02-01-2025 Average glucose Estimated from glycated hemoglobin (Bld) [Mass/Vol] 111 mg/dL Normal [facility] Comment on above: Order Comment: Heike men Type: BLOOD SPECIMENOrdering Facility: [facility] Address: [address] [place] [address] Result Comment: eAG: (Estimated average glucose) is a calculated value from HgbA1c and is technical services representative of the average blood glucose level in the last 2-3 month period. Performed By: #### 5 5454-3 ####[facility] [id number] [place] [address] [place] HbA1c (Bld) [Mass fraction] 5.5 % Normal 4.3-5.6 [facility] Comment on above: Order Comment: Belli men Type: BLOOD SPECIMENOrdering Facility: [facility] Address: [address] [place] [address] Result Comment: Amer [place] Diabetes Association guidelines indicate that patients with HgbA1c in the range 5.7-6.4% are at increased risk for development of diabetes, and intervention by lifestyle modification may be beneficial. HgbA1c greater or equal to 6.5% is considered diagnostic of diabetes. Performed By: #### 5 5454-3 ####[facility] [id number] [place] [address] [place] TSH SerPl-aCncon 02-01-2025 TSH Qn 2.400 m[IU]/L Normal 0.270-4.200 [facility] Comment on above: Order Comment: Speci men Type: BLOOD SPECIMENOrdering Facility: [facility] Address: [address] [place] [address] Performed By: #### 3 016-3 ####[facility] [id number] [facility] [address] [place] [address] [place] Urinalysis complete panel (U )on 02-01-2025 BACTERIA UL >9821 High Negative [facility] Comment on above: Order Comment: Speci men Type: URINE SPECIMENOrdering Facility: [facility] Address: [address] [place] [address] Performed By: #### 2 4356-8 ####[facility] [id number] [address], [facility] [place] Bilirubin Ql (U) Negative Normal Negative [facility] Comment on above: Order Comment: Speci men Type: URINE SPECIMENOrdering Facility: [facility] Address: [address] [place] [address] Performed By: #### 2 4356-8 ####[facility] [id number] [place] [id number] [place] CALCIUM OXALATE CRYSTALS (UA) Moderate Abnormal None Seen [facility] Comment on above: Order Comment: Speci men Type: URINE SPECIMENOrdering Facility: [facility] Address: [address] [place] [address] Performed By: #### 2 4356-8 ####[facility] [id number] [address] [address] [place] Clarity (Unsp spec) Cloudy Abnormal Clear [facility] Comment on above: Order Comment: Speci men Type: URINE SPECIMENOrdering Facility: [facility] Address: [address] [place] [address] Performed By: #### 2 4356-8 ####[facility] [id number] [place] [id number] [place] Color (U) Dark Yellow Abnormal Yellow [facility] Comment on above: Order Comment: Speci men Type: URINE SPECIMENOrdering Facility: [facility] Address: [address] [place] [address] Performed By: #### 2 4356-8 ####[facility] [id number] [place] [address] [place] Epithelial cells LM.HPF (Urine sed) [#/Area] None Seen Normal [facility] Comment on above: Order Comment: Speci men Type: URINE SPECIMENOrdering Facility: [facility] Address: [address] [place] [address] Performed By: #### 2 4356-8 ####[facility] [id number] [address] [place] Glucose Test strip (U) [Mass/Vol] Negative Normal Negative [facility] Comment on above: Order Comment: Speci men Type: URINE SPECIMENOrdering Facility: [facility] Address: [address] [place] [address] Performed By: #### 2 4356-8 ####[facility] [id number] [place] [address] [place] Hemoglobin Ql (U) 1+ Abnormal Negative [facility] Comment on above: Order Comment: Speci men Type: URINE SPECIMENOrdering Facility: [facility] Address: [address] [place] [address] Performed By: #### 2 4356-8 ####[facility] [id number] [place] [address] [place] Hyaline casts (Urine sed) [#/Area] 1-3 /LPF Abnormal 0 /LPF [facility] Comment on above: Order Comment: Speci men Type: URINE SPECIMENOrdering Facility: [facility] Address: [address] [place] [address] Performed By: #### 2 4356-8 ####[facility] [id number] [place] [address] [place] Ketones Ql (U) Negative Normal Negative [facility] Comment on above: Order Comment: Speci men Type: URINE SPECIMENOrdering Facility: [facility] Address: [address] [place] [address] Performed By: #### 2 4356-8 ####[facility] [id number] [place] [address] [place] Leukocyte esterase Test strip Ql (U) 3+ Abnormal Negative [facility] Comment on above: Order Comment: Speci men Type: URINE SPECIMENOrdering Facility: [facility] Address: [address] [place] [address] Performed By: #### 2 4356-8 ####[facility] [id number] [place] [address] [place] Nitrite Ql (U) Positive Abnormal Negative [facility] Comment on above: Order Comment: Speci men Type: URINE SPECIMENOrdering Facility: [facility] Address: [address] [place] [address] Performed By: #### 2 4356-8 ####[facility] [id number] [place] [address] [place] pH (U) 5.5 [pH] Normal <8.5 [facility] Comment on above: Order Comment: Speci men Type: URINE SPECIMENOrdering Facility: [facility] Address: [address] [place] [address] Performed By: #### 2 4356-8 ####[facility] [id number] [place] [address] [place] Protein (U) [Mass/Vol] 1+ Abnormal Negative [facility] Comment on above: Order Comment: Speci men Type: URINE SPECIMENOrdering Facility: [facility] Address: [address] [place] [address] Performed By: #### 2 4356-8 ####[facility] [id number] [place] [address] [place] RBC LM.HPF (Urine sed) [#/Area] 11-20 /HPF Abnormal 0-2 /HPF [facility] Comment on above: Order Comment: Speci men Type: URINE SPECIMENOrdering Facility: [facility] Address: [address] [place] [address] Performed By: #### 2 4356-8 ####[facility] [id number] [place] [address] [place] Specific gravity (U) [Rel density] 1.018 Normal 1.005-1.030 [facility] Comment on above: Order Comment: Speci men Type: URINE SPECIMENOrdering Facility: [facility] Address: [address] [place] [address] Performed By: #### 2 4356-8 ####[facility] [id number] [place] [address] [place] Urobilinogen Ql (U) 0.2 EU/dL Normal 0.2-1.0 EU/dL [facility] Comment on above: Order Comment: Speci men Type: URINE SPECIMENOrdering Facility: [facility] Address: [address] [place] [address] Performed By: #### 2 4356-8 ####[facility] [id number] [place] [address] [place] WBC LM.HPF (Urine sed) [#/Area] /[HPF] Abnormal 0-5 /HPF [facility] Comment on above: Order Comment: Speci men Type: URINE SPECIMENOrdering Facility: [facility] Address: [address] [place] [address] Performed By: #### 2 4356-8 ####[facility] [id number] [facility]OPriscilla [place] [id number] [place] CNOVon 01-10-2025 CNOV Office Visit (FRFHWS) DOREEN BETANCUR ([id number]) 1960 F Date Time Provider Department 01/10/25 3:00 PM ETHAN MCKEON V [facility] During your visit today, we recorded the following information about you: Renita Quick MA 01/10/2025 4:05 PM Signed Patient presents with: Left wrist injury: Referred by Jay Maki X-rays 01/02/25 AMB ROOMING INTAKE FLOWSHEET DATA Ethan Mckeon V, DO 01/10/2025 4:05 PM Signed Subjective Doreen Betancur is a 64-year-old female presenting for follow-up of a right wrist injury sustained 9 days ago. Doreen reports a right wrist injury sustained 9 days ago while pulling a hose out of a milk house. The hose became kinked, causing her to lose balance and fall backward. She was evaluated at urgent care, where an x-ray was performed. The x-ray did not show a definitive fracture, but a subtle irregularity was noted, and she was advised to treat it as a fracture. Doreen has been wearing a thumb spica splint since the injury. She reports that the pain is localized to the right wrist and is described as an ache. The pain is exacerbated by movement and alleviated by wearing the splint. She notes that the pain is not as severe today as it has been in the past. Doreen mowed the lawn yesterday for a couple of hours using a [employer] mower, which requires the use of both hands. She wore the splint during this activity and did not report any significant increase in pain. Doreen removes the splint only when showering and describes it as not the greatest, but doing its job. She denies any pain in the thumb or other areas of the wrist. Doreen reports being a restless sleeper and has been wearing the splint at night to prevent further injury. She denies any other injuries or issues related to the fall. Constitutional: (+) restless sleep Musculoskeletal: (+) right wrist pain Objective Last menstrual period 08/10/2012. General: No acute distress. MSK/Ext: Tenderness to palpation over the right wrist; no pain with palpation of the right forearm. Imaging: - (Today) Right Wrist X-ray: - Findings: Subtle irregularity over radial styloid - No displacement or malalignment - Right Wrist X-ray: - Findings: Possible subtle fracture at the nutrient vessel site - No displacement or malalignment Assessment AND Plan 1. Wrist injury, left, initial encounter (S69.92XA) Injury occurred approximately 9 days ago due to a fall while pulling a hose. Initial X-ray showed a potential subtle fracture or nutrient vessel irregularity. Current examination reveals tenderness in the area corresponding to the irregularity seen on the X-ray. No signs of misalignment or displacement. - Ordered repeat X-ray today to assess for healing changes. - Continue using thumb spica splint to immobilize and protect the wrist. - Advised patient to use pain as a guide for activity; avoid movements that cause pain. - Patient can remove the splint for washing and airing out the skin. - Recommended wearing the splint during sleep due to restless sleeping habits. - Scheduled follow-up in 3 weeks with repeat X-ray to evaluate healing progress. Recording using [employer] software for draft documentation of the visit was discussed with the patient/authorized technical services representative; all questions welcomed and answered. Patient/authorized technical services representative agreed to proceed Referring Provider: MATTHEW MAKI [[id number]] Allergies As of Date: 01/10/2025 Noted Allergy Reaction PENICILLINS 05/06/2005 5 - Intolerance Comments: Unknown reaction as a child DEXTROMETHORPHAN 09/17/2022 1 - Mental Status Change Comments: anxiety MACROBID (NITROFURANTOIN MONOHYD/*12/23/2006 Comments: Hot, cold, achy PHENYLEPHRINE 09/17/2022 5 - Intolerance Comments: anxiety PREDNISONE 12/26/2020 14 - Other: See Comments Comments: Heart palpitations ZETIA (EZETIMIBE) 10/03/2024 17 - Myalgia Comments: Muscle aches and joint pains SE ADHESIVE TAPE (ROSINS) 07/30/2005 5 - Intolerance Comments: Erythema after ribbon tape Date Reviewed: 01/10/2025 Reviewed by: Renita Quick MA - Fully Assessed Reason for Visit: Left wrist injury [Other] Cmt: Referred by Jay Maki X-rays 01/02/25 Visit Diagnosis:Wrist injury, left, initial encounter [S69.92XA] Order(s):CONSULT TO ORTHOPAEDICS [9026] Order #: [id number]: 1 XR WRIST ORTH FX FU 2V PA/LAT LEFT [0119734] Order #: [id number] FUTURE Prescriptions as of 01/10/2025 - levothyroxine (LEVOXYL) 75 mcg tablet Take 1 tablet by mouth once daily. Take daily in the morning before eating, Take on empty stomach. For Thyroid - cyclobenzaprine HCl (FLEXERIL ORAL) Take 10 mg by mouth as needed. - OTC PRODUCT Apply to affected area once daily. Silky peach cream for vaginal dryness and tightness - letrozole (FEMARA) 2.5 mg tablet Take 1 tablet by mouth once daily. - sertraline (ZOLOFT) 50 mg (more content not included)... Normal [facility] XR WRIST ORTH FX FU 2V PA/LA T LTon 01-10-2025 XR WRIST ORTH FX FU 2V PA/LAT LT * * *Final Report* * * DATE OF EXAM: Jan 10 2025 3:34PM WRX [id number] - XR WRIST ORTH FX FU 2V PA/LAT LT / PROCEDURE REASON: Wrist injury, left, initial encounter * * * * Physician Interpretation * * * * HISTORY: 64-YEAR-OLD FEMALE WITH Wrist injury, left, initial encounter . follow fx from a week ago Thursday TECHNIQUE: XR WRIST ORTH FX FU 2V PA/LAT LT Laterality: LEFT Number of different views (projections): 2 COMPARISON: 01/02/2025 left wrist RESULT: Left wrist: On the lateral view there is a nondisplaced radial fracture with a 5 mm bony fragment approximately 5 mm proximal to the joint line. Degenerative changes of distal radioulnar joint. Carpal bones, metacarpal joints is an carpal and are normal. IMPRESSION: SMALL NONDISPLACED DORSAL DISTAL RADIAL FRACTURE. Credit Front Office Developer: [facility] Transcribe Date/Time: Jan 16 2025 5:48P Dictated by : STEPHON JURADO MD This examination was interpreted and the report reviewed and electronically signed by: STEPHON JURADO MD on Jan 16 2025 5:57PM EST [id number] CN Normal [facility] No Panel Informationon 01-02 IMPRESSION: Distal radial metaphyseal nutrient channel versus nondisplaced fracture. Correlate with physical examination for possible point tenderness in this region. Credit Front Office Developer: [facility] Transcribe Date/Time: Jan 02 2025 8:52A Dictated by : MATTHEW GAVIN MD This examination was interpreted and the report reviewed and electronically signed by: MATTHEW GAVIN MD on Jan 02 2025 8:58AM EST DIVISION OF RADIOLOGY Radiology Study observation (narrative) [facility] No Panel InformationOrdered By: Ccf Provider on 01-02-2025 [facility] XR HAND 3V PA/LAT/OBL LTon 0 01-02-2025 XR HAND 3V PA/LAT/OBL LT * * *Final Report* * * DATE OF EXAM: Jan 02 2025 8:40AM WOX 5345 - XR HAND 3V PA/LAT/OBL LT / PROCEDURE REASON: Wrist injury, left, initial encounter * * * * Physician Interpretation * * * * TITLE: XR HAND 3V PA/LAT/OBL LT, XR WRIST 4V PA/LAT/OBL/SCAPH LT CLINICAL INDICATION: Status post fall with pain TECHNIQUE: 3 view radiographic study of the left hand and 4 view radiographic study of the left wrist COMPARISON: None FINDINGS: There is mild transverse lucency/sclerosis in the distal radial metaphysis which may reflect a nutrient channel versus nondisplaced fracture. No additional osseous injury identified. Mild first carpal metacarpal joint osteoarthritis and mild scattered degenerative changes of the interphalangeal joints. IMPRESSION: Distal radial metaphyseal nutrient channel versus nondisplaced fracture. Correlate with physical examination for possible point tenderness in this region. Credit Front Office Developer: [facility] Transcribe Date/Time: Jan 02 2025 8:52A Dictated by : MATTHEW GAVIN MD This examination was interpreted and the report reviewed and electronically signed by: MATTHEW GAVIN MD on Jan 02 2025 8:58AM EST [id number] CN Normal [facility] XR Hand - left PA and Latera l and Obliqueon 01-02-2025 * * *Final Report* * * DATE OF EXAM: Jan 02 2025 8:40AM WOX 5345 - XR HAND 3V PA/LAT/OBL LT / PROCEDURE REASON: Wrist injury, left, initial encounter * * * * Physician Interpretation * * * * TITLE: XR HAND 3V PA/LAT/OBL LT, XR WRIST 4V PA/LAT/OBL/SCAPH LT CLINICAL INDICATION: Status post fall with pain TECHNIQUE: 3 view radiographic study of the left hand and 4 view radiographic study of the left wrist COMPARISON: None FINDINGS: There is mild transverse lucency/sclerosis in the distal radial metaphysis which may reflect a nutrient channel versus nondisplaced fracture. No additional osseous injury identified. Mild first carpal metacarpal joint osteoarthritis and mild scattered degenerative changes of the interphalangeal joints. DIVISION OF RADIOLOGY Provider, [facility] [place] - 01/02/2025 * * *Final Report* * * DATE OF EXAM: Jan 02 2025 8:40AM WOX 5345 - XR HAND 3V PA/LAT/OBL LT / PROCEDURE REASON: Wrist injury, left, initial encounter * * * * Physician Interpretation * * * * TITLE: XR HAND 3V PA/LAT/OBL LT, XR WRIST 4V PA/LAT/OBL/SCAPH LT CLINICAL INDICATION: Status post fall with pain TECHNIQUE: 3 view radiographic study of the left hand and 4 view radiographic study of the left wrist COMPARISON: None FINDINGS: There is mild transverse lucency/sclerosis in the distal radial metaphysis which may reflect a nutrient channel versus nondisplaced fracture. No additional osseous injury identified. Mild first carpal metacarpal joint osteoarthritis and mild scattered degenerative changes of the interphalangeal joints. IMPRESSION IMPRESSION: Distal radial metaphyseal nutrient channel versus nondisplaced fracture. Correlate with physical examination for possible point tenderness in this region. Credit Front Office Developer: [facility] Transcribe Date/Time: Jan 02 2025 8:52A Dictated by : MATTEHW GAVIN MD This examination was interpreted and the report reviewed and electronically signed by: MATTHEW GAVIN MD on Jan 02 2025 8:58AM EST [facility] XR WRIST 4V PA/LAT/OBL/SCAPH LTon 01-02-2025 XR WRIST 4V PA/LAT/OBL/SCAPH LT * * *Final Report* * * DATE OF EXAM: Jan 02 2025 8:40AM WOX 5272 - XR WRIST 4V PA/LAT/OBL/SCAPH LT / PROCEDURE REASON: Wrist injury, left, initial encounter * * * * Physician Interpretation * * * * TITLE: XR HAND 3V PA/LAT/OBL LT, XR WRIST 4V PA/LAT/OBL/SCAPH LT CLINICAL INDICATION: Status post fall with pain TECHNIQUE: 3 view radiographic study of the left hand and 4 view radiographic study of the left wrist COMPARISON: None FINDINGS: There is mild transverse lucency/sclerosis in the distal radial metaphysis which may reflect a nutrient channel versus nondisplaced fracture. No additional osseous injury identified. Mild first carpal metacarpal joint osteoarthritis and mild scattered degenerative changes of the interphalangeal joints. IMPRESSION: Distal radial metaphyseal nutrient channel versus nondisplaced fracture. Correlate with physical examination for possible point tenderness in this region. Credit Front Office Developer: [facility] Transcribe Date/Time: Jan 02 2025 8:52A Dictated by : MATTHEW GAVIN MD This examination was interpreted and the report reviewed and electronically signed by: MATTHEW GAVIN MD on Jan 02 2025 8:58AM EST [id number] CN [facility] - [facility] 4 Viewson * * *Final Report* * * DATE OF EXAM: Jan 02 2025 8:40AM WOX 5272 - XR WRIST 4V PA/LAT/OBL/SCAPH LT / PROCEDURE REASON: Wrist injury, left, initial encounter * * * * Physician Interpretation * * * * TITLE: XR HAND 3V PA/LAT/OBL LT, XR WRIST 4V PA/LAT/OBL/SCAPH LT CLINICAL INDICATION: Status post fall with pain TECHNIQUE: 3 view radiographic study of the left hand and 4 view radiographic study of the left wrist COMPARISON: None FINDINGS: There is mild transverse lucency/sclerosis in the distal radial metaphysis which may reflect a nutrient channel versus nondisplaced fracture. No additional osseous injury identified. Mild first carpal metacarpal joint osteoarthritis and mild scattered degenerative changes of the interphalangeal joints. DIVISION OF RADIOLOGY Provider, [facility] [place] - 01/02/2025 * * *Final Report* * * DATE OF EXAM: Jan 02 2025 8:40AM WOX 5272 - XR WRIST 4V PA/LAT/OBL/SCAPH LT / PROCEDURE REASON: Wrist injury, left, initial encounter * * * * Physician Interpretation * * * * TITLE: XR HAND 3V PA/LAT/OBL LT, XR WRIST 4V PA/LAT/OBL/SCAPH LT CLINICAL INDICATION: Status post fall with pain TECHNIQUE: 3 view radiographic study of the left hand and 4 view radiographic study of the left wrist COMPARISON: None FINDINGS: There is mild transverse lucency/sclerosis in the distal radial metaphysis which may reflect a nutrient channel versus nondisplaced fracture. No additional osseous injury identified. Mild first carpal metacarpal joint osteoarthritis and mild scattered degenerative changes of the interphalangeal joints. IMPRESSION IMPRESSION: Distal radial metaphyseal nutrient channel versus nondisplaced fracture. Correlate with physical examination for possible point tenderness in this region. Credit Front Office Developer: [facility] Transcribe Date/Time: Jan 02 2025 8:52A Dictated by : MATTHEW GAVIN MD This examination was interpreted and the report reviewed and electronically signed by: MATTHEW GAVIN MD on Jan 02 2025 8:58AM EST [facility] CNOVon 01-01-2025 CNOV Office Visit (UCWSTR) DOREEN BETANCUR ([id number]) 1960 F Date Time Provider Department 01/01/25 12:00 PM MATTHEW MAKI [facility] During your visit today, we recorded the following information about you: Temperature Pulse Respiration Weight 98.4 degrees 85/minute 19/minute 74.5 kg Matthew Maki APRN.SLICING MACHINE TENDER 01/02/2025 9:40 AM Signed Subjective HPI Nontoxic-appearing 64-year-old female presents urgent care chief complaint left wrist injury. Duration of symptoms 1 day. Associated symptoms left wrist pain swelling and bruising. States was walking backwards on her sidewalk when she tripped and landed on outstretched wrist. No other injuries. No numbness no tingling. No decrease sensation. No surgeries fractures to this wrist or hand in the past. Did fracture her elbow in 21. No surgeries. Past medical history prescription medications allergies reviewed .Patient presents with: Trauma: Fell down and injured left hand/wrist x 1 day PAST MEDICAL HISTORY Diagnosis Date Abnormality of ascending aorta (HCC) 05/2023 borderline dilation 3.8 cm Anxiety Malignant neoplasm of breast (female), unspecified site 05/27/2005 right breast Vitamin D deficiency PAST SURGICAL HISTORY Procedure Laterality Date BREAST RECONSTRUCTION Right DELIVERY ONLY times four COLONOSCOPY FLX DX W/COLLJ SPEC WHEN PFRMD 12/11/2014 Repeat 2024 DILATION AND CURETTAGE DXAND/THER NONOBSTETRIC LAPAROSCOPY W/RMVL ADNEXAL STRUCTURES 07/05/2013 Laprascopic BSO h/o breast ca LIG/TRNSXJ FLP TUBE ABDL/VAG APPR UNI/BI 1998(?) MAST MODF RAD W/AX LYMPH NOD W/WO PECT/VICKY MIN Right 10/11/2019 [facility] Arceo, [facility] PAST SURGICAL HISTORY OF 06/17/2005 lumpectomy and removal of lymph nodes PAST SURGICAL HISTORY OF 2018 Laser surgery vaginal ALLERGIES Penicillins, Dextromethorphan, Macrobid [Nitrofurantoin Monohyd/M-Cryst], Phenylephrine, Prednisone, Zetia [Ezetimibe], and Adhesive Tape (Rosins) MEDICATIONS levothyroxine (LEVOXYL) 75 mcg tablet Take 1 tablet by mouth once daily. Take daily in the morning before eating, Take on empty stomach. For Thyroid cyclobenzaprine HCl (FLEXERIL ORAL) Take 10 mg by mouth as needed. OTC PRODUCT Apply to affected area once daily. Silky peach cream for vaginal dryness and tightness letrozole (FEMARA) 2.5 mg tablet Take 1 tablet by mouth once daily. sertraline (ZOLOFT) 50 mg tablet Take 1.5 tablets by mouth once daily. DULoxetine (CYMBALTA) 60 mg capsule Take 1 capsule by mouth once daily. meclizine (ANTIVERT) 12.5 mg tab Take 1 tablet by mouth every 6 hours as needed (dizziness). triamcinolone acetonide (KENALOG) 0.5 % cream Apply 1 application to affected area two times a day. For rash/itching. Apply sparingly. Avoid face/skin fold. clonazePAM (KLONOPIN) 0.5 mg tablet Take 1 tablet by mouth twice daily as needed for anxiety for up to 30 days. cholecalciferol (VITAMIN D3) 5,000 unit tab Take 5,000 Units by mouth once daily. MAGNESIUM ORAL Take 1 tablet by mouth once daily. lisinopril (ZESTRIL, PRINIVIL) 10 mg tablet Take 1 tablet by mouth once daily. As needed for BLOOD PRESSURE >140/90 vitamin b complex capsule Take 1 capsule by mouth once daily. Lactobacillus acidophilus (PROBIOTIC ORAL) Take 1 capsule by mouth once daily. FAMILY HISTORY Problem Relation Age of Onset Hypertension Mother Heart Father [place] at age 61 other (melanoma) Sister Heart Paternal Grandfather [place] age 61 Social History Tobacco Use Smoking status: Never Smokeless tobacco: Never Vaping Use Vaping status: Never Used Substance Use Topics Alcohol use: Yes Comment: seldom Drug use: No Pulse 85 Temp 36.9 ?C (98.4 ?F) Resp 19 Wt 74.5 kg (164 lb 3.9 oz) LMP 08/10/2012 SpO2 98% BMI 29.09 kg/m? Review of Systems Constitutional: Negative for chills, fever and malaise/fatigue. Musculoskeletal: Positive for falls and joint pain. Negative for back pain, myalgias and neck pain. Neurological: Negative for dizziness, loss of consciousness, weakness and headaches. Objective Physical Exam Constitutional: General: She is not in acute distress. Appearance: She is not toxic-appearing. HENT: Head: Normocephalic. Nose: Nose normal. Eyes: Pupils: Pupils are equal, round, and reactive to light. Cardiovascular: Rate and Rhythm: Normal rate. Pulmonary: Effort: Pulmonary effort is normal. No respiratory distress. Musculoskeletal: Cervical back: Normal range of motion. Comments: Ecchymosis noted palmar aspect left hand. Tenderness some with palpation to left wrist and hand. Edema noted. No erythema. Neurovascular intact. No pain with palpation to forearm or elbow. Range of motion decreased due to edema and discomfort. No weaknesses. Skin: General: Skin is warm and dry. Neurological: General: No focal deficit present. Mental Status: She is alert. (more content not included)... Normal [facility] CNOVSPon 11-21-2024 CNOVSP Visit (SP) Office (HEMFAN) GYPSYDOREEN GREEN ([id number]) 1960 F Date Time Provider Department 11/21/24 11:00 AM BECCA MAGANA During your visit today, we recorded the following information about you: Temperature Pulse Blood pressure Weight 97.6 degrees 87/minute 137/92 74.1 kg Becca Magana APRN.SLICING MACHINE TENDER 11/22/2024 12:41 PM Signed Chief Complaint Patient presents with: Established Patient HPI: Doreen Betancur is a 64 year old female who presents here today for follow up breast cancer. Per Dr. 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 Status post 6 doses of paclitaxel given on an every-2- week basis with growth factor support along with trastuzumab (CALGB 82651). Radiation therapy was completed in 11/2005. She had been on tamoxifen since the second week of 12/2005. Finished trastuzumab in June 2006. Completed 5 years' worth of tamoxifen fall 2010. Received injection Zoladex with plan for possible AI therapy, but had significant QUINTANILLA. Decision at that point to hold therapy. Took nearly the whole month for QUINTANILLA to gradually resolve. Underwent lap oophorectomy 06/2013. She was running a [place] in early March 2019 when a rock was thrown up hitting her in the lateral right breast right along the scar from previous surgery. She developed a tender lump in that area. She underwent diagnostic mammogram and ultrasound which suggested hematoma. She had no skin discoloration. Follow-up breast ultrasound suggested stable findings consistent with hematoma. Repeat ultrasound of the right breast on 08/24/2019 revealed a 1.8 x 2.4 x 1.2 cm lobulated mass in the right breast that was suspicious for malignancy. Biopsy was recommended. Biopsy done 09/02/2019. Pathology: MICROSCOPIC DIAGNOSIS Right breast, ultrasound-guided needle core biopsy: Invasive ductal carcinoma. Nuclear grade - 3/3 Maximal length - 13 mm Other findings - tumor necrosis Reference is made to the patient?s previous right breast lumpectomy from 2004 ([id number]) in which invasive, grade 3/3, poorly differentiated ductal carcinoma was identified. ER (clone [id number]) 4% dim ID (clone 16/1E2) 0% Her-2Neu (clone [id number]) 0 MRI Breast 09/19/2019: RIGHT BREAST: The breast tissue is scattered fibroglandular densities with no background enhancement. There is a 2.5 cm abnormal enhancing mass in the superior outer aspect of the right breast located approximately 6 cm from the nipple. This does correlate to the area that was biopsied and shown to represent a malignancy. No other abnormal enhancing or abnormal morphologically appearing masses are seen in the right breast. LEFT BREAST: The breast tissue is heterogeneously dense with no background enhancement. There are no abnormal enhancing masses or areas of non-mass enhancement in the left breast. There are no enlarged or abnormal lymph nodes. There is no abnormality in the visualized regions of the chest or liver. IMPRESSION: There is a known malignancy in the right breast. Surgical consultation is recommended as well as radiation oncology and medical oncology consultation. Short-term six-month follow-up mammogram is recommended if the patient and the surgeon opt to do a lumpectomy. Underwent right modified radical mastectomy along with right axillary lymph node dissection on 10/11/2019. Pathology: FROZEN SECTION DIAGNOSIS A. Right axillary sentinel lymph nodes, biopsy: Two out of two lymph nodes negative for carcinoma. MICROSCOPIC DIAGNOSIS A. Right axillary sentinel lymph nodes, biopsy: Three out of three lymph nodes, negative for metastatic carcinoma. B. Right breast, mastectomy: Invasive poorly differentiated ductal carcinoma. See cancer check list below. COMMENT INVASIVE BREAST CANCER SUMMARY: Procedure: Mastectomy Specimen: Type: Total breast Size: 17 x 15 x 5 cm Laterality: Right breast Invasive Tumor: Size of tumor: 2.5 x 2 x 2 cm Focality: Single focus of invasive tumor Histologic type: Invasive ductal carcinoma. Histologic grade ([place] grade): Glandular/tubular differentiation score: 3 Nuclear pleomorphism score: 3 Mitotic count score: 3 Overall grade: 3 (score of 9/9) Lymph-vascular invasion: Not identified Ductal Carcinoma In Situ: Not identified Lobular Carcinoma In Situ: Not identified Tumor extension: Skin: Free of carcinoma Nipple: Free of carcinoma Skeletal muscle: Free of carcinoma Margins Involved by Invasive Carcinoma: None Distance from closest margin: 1.5 mm from superior margin Margins Involved by In Situ Carcinoma: Not applicable Lymph Nodes: Number of sentinel lymph nodes examine (more content not included)... Normal [facility] CNOVon 10-03-2024 CNOV [facility] DOREEN BETANCUR ([id number]) 1960 F Date Time Provider Department 10/03/24 9:40 AM H[facility] MARTINEZ [facility] During your visit today, we recorded the following information about you: Temperature Pulse Respiration Blood pressure 97 degrees 80/minute 16/minute 130/80 Weight 75.8 kg Ham Martinez DO 10/03/2024 5:09 PM Signed CC: Doreen Jeffrey Gypsy is a 64 year old female who presents to the office for follow up HPI: Recently with UTI with E coli in Jun 2024, otherwise doing well HPL, was on Zetia in the past. 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 Mood, has stressors due to helping her daughter whom has a lot of mental health concerns. No SI or HI. Currently is taking 100 mg of the Zoloft, wondering if able to taper down some with the spring/summer weather coming and does better managing her mood when she is able to be outside with sun and farm chores. PAST MEDICAL HISTORY Diagnosis Date Abnormality of ascending aorta 05/2023 borderline dilation 3.8 cm Anxiety Malignant neoplasm of breast (female), unspecified site 05/27/2005 right breast Vitamin D deficiency PAST SURGICAL HISTORY Procedure Laterality Date BREAST RECONSTRUCTION Right DELIVERY ONLY times four COLONOSCOPY FLX DX W/COLLJ SPEC WHEN PFRMD 12/11/2014 Repeat 2024 DILATION AND CURETTAGE DXAND/THER NONOBSTETRIC LAPAROSCOPY W/RMVL ADNEXAL STRUCTURES 07/05/2013 Laprascopic BSO h/o breast ca LIG/TRNSXJ FLP TUBE ABDL/VAG APPR UNI/BI 1998(?) MAST MODF RAD W/AX LYMPH NOD W/WO PECT/VICKY MIN Right 10/11/2019 Dr. Arceo, [facility] PAST SURGICAL HISTORY OF 06/17/2005 lumpectomy and removal of lymph nodes PAST SURGICAL HISTORY OF 2018 Laser surgery vaginal Current Outpatient Medications Medication Sig sertraline (ZOLOFT) 50 mg tablet Take 1.5 tablets by mouth once daily. DULoxetine (CYMBALTA) 60 mg capsule Take 1 capsule by mouth once daily. levothyroxine (LEVOXYL) 75 mcg tablet Take 1 tablet by mouth once daily. Take daily in the morning before eating, Take on empty stomach. For Thyroid lansoprazole (PREVACID) 30 mg capsule Take 1 capsule by mouth daily before breakfast. For acid reflux, 1/2 hr before meal. ezetimibe (ZETIA) 10 mg tablet Take 1 tablet by mouth once daily. At supper or bedtime meclizine (ANTIVERT) 12.5 mg tab Take 1 tablet by mouth every 6 hours as needed (dizziness). letrozole (FEMARA) 2.5 mg tablet Take 1 tablet by mouth once daily. triamcinolone acetonide (KENALOG) 0.5 % cream Apply 1 application to affected area two times a day. For rash/itching. Apply sparingly. Avoid face/skin fold. clonazePAM (KLONOPIN) 0.5 mg tablet Take 1 tablet by mouth twice daily as needed for anxiety for up to 30 days. cholecalciferol (VITAMIN D3) 5,000 unit tab Take 5,000 Units by mouth once daily. MAGNESIUM ORAL Take 1 tablet by mouth once daily. Estradiol (VAGIFEM) 10 mcg vaginal tablet Use 10 mcg vaginally three times a week. lisinopril (ZESTRIL, PRINIVIL) 10 mg tablet Take 1 tablet by mouth once daily. As needed for BLOOD PRESSURE >140/90 vitamin b complex capsule Take 1 capsule by mouth once daily. Lactobacillus acidophilus (PROBIOTIC ORAL) Take 1 capsule by mouth once daily. No current facility-administere d medications for this visit. ALLERGIES Allergen Reactions Penicillins Intolerance Unknown reaction as a child Dextromethorphan Mental Status Change anxiety Macrobid [Nitrofura* Hot, cold, achy Phenylephrine Intolerance anxiety Prednisone Other: See Comments Heart palpitations Adhesive Tape (Kassie* Intolerance Erythema after ribbon tape Social History Tobacco Use Smoking status: Never Smokeless tobacco: Never Vaping Use Vaping status: Never Used Substance Use Topics Alcohol use: Yes Comment: seldom Drug use: No ROS: See HPI PE: BP 130/80 Pulse 80 Temp (Src) 97 (Temporal) Resp 16 Wt 167 lb (75.8kg) LMP 08/10/2012 Gen: AANDOX3, NAD, non-toxic appearing HEENT: PERRLA, EOMs intact b/l, nares without drainage, pharynx without erythema, exudate, lesions, or drainage. Uvula midline. Neck: No LAD, no thyromegaly, no meningismus. CV: RRR, no murmur Lungs: CTA b/l, no wheezing Skin: No rashes, lesions, or wounds on exposed skin. No edema, normal pulses ASSESSMENT/PLAN: 1. Dysuria - ICD9: 788.1, ICD10: R30.0 (primary diagnosis) recurrent - Patient education for prevention given - BACTERIAL CULTURE, URINE - URINALYSIS, WITH MICROSCOPIC 2. Anxiety and depression - ICD9: 300.00, 311, ICD10: F41.9, F32.A Taper down on zoloft to 75 mg a day (1.5 tablets)- if doing well on this x 4-6 weeks, then ok (more content not included)... Normal [facility] Diogo 08-10-2024 CNPN Telephone ([facility]WS) DOREEN BETANCUR ([id number]) 1960 F Date Time Provider Department 08/10/24 HAM MARTINEZ [facility] During your visit today, we recorded the following information about you: Ham Martinez DO 08/10/2024 12:49 PM Signed Please let her know that her bone density shows IMPRESSION: THE LOWEST T-SCORE IS -2.0 IN THE LEFT HIP 1) DIAGNOSIS (based on BMD alone): OSTEOPENIA BMD is showing some beginning bone mass loss (osteopenia), which may increase the risk of insufficiency fractures. I suggest 8085-2662 mg of Calcium citrate into 2 doses daily as well as at least 1000 units of Vitamin D3 daily. Weight bearing exercise, if not already doing, and f/u exam in 2 years for bone density. DO Franc Siegel Linda M, LPN 08/10/2024 2:01 PM Signed Spoke with pt gave information provided. Pt voices understanding. She states is already taking 2000 units of vitamin d3 a day so you want to have that increased by 1000 units? Ham Martinez DO 08/10/2024 4:27 PM Signed No, okay to continue her same dosing of vitamin D DO Sebastián Siegel Susan LPN 08/10/2024 5:08 PM Signed Pt. informed. Allergies As of Date: 08/10/2024 Noted Allergy Reaction PENICILLINS 05/06/2005 5 - Intolerance Comments: Unknown reaction as a child DEXTROMETHORPHAN 09/17/2022 1 - Mental Status Change Comments: anxiety MACROBID (NITROFURANTOIN MONOHYD/*12/23/2006 Comments: Hot, cold, achy PHENYLEPHRINE 09/17/2022 5 - Intolerance Comments: anxiety PREDNISONE 12/26/2020 14 - Other: See Comments Comments: Heart palpitations ADHESIVE TAPE (ROSINS) 07/30/2005 5 - Intolerance Comments: Erythema after ribbon tape Date Reviewed: 05/25/2024 Reviewed by: Becca Magana APRN.SLICING MACHINE TENDER - Fully Assessed Prescriptions as of 08/10/2024 - DULoxetine (CYMBALTA) 60 mg capsule Take 1 capsule by mouth once daily. - levothyroxine (LEVOXYL) 75 mcg tablet Take 1 tablet by mouth once daily. Take daily in the morning before eating, Take on empty stomach. For Thyroid - lansoprazole (PREVACID) 30 mg capsule Take 1 capsule by mouth daily before breakfast. For acid reflux, 1/2 hr before meal. - ezetimibe (ZETIA) 10 mg tablet Take 1 tablet by mouth once daily. At supper or bedtime - sertraline (ZOLOFT) 50 mg tablet Take 1.5 tablets by mouth once daily. - meclizine (ANTIVERT) 12.5 mg tab Take 1 tablet by mouth every 6 hours as needed (dizziness). - letrozole (FEMARA) 2.5 mg tablet Take 1 tablet by mouth once daily. - triamcinolone acetonide (KENALOG) 0.5 % cream Apply 1 application to affected area two times a day. For rash/itching. Apply sparingly. Avoid face/skin fold. - clonazePAM (KLONOPIN) 0.5 mg tablet Take 1 tablet by mouth twice daily as needed for anxiety for up to 30 days. - cholecalciferol (VITAMIN D3) 5,000 unit tab Take 5,000 Units by mouth once daily. - MAGNESIUM ORAL Take 1 tablet by mouth once daily. - Estradiol (VAGIFEM) 10 mcg vaginal tablet Use 10 mcg vaginally three times a week. - lisinopril (ZESTRIL, PRINIVIL) 10 mg tablet Take 1 tablet by mouth once daily. As needed for BLOOD PRESSURE >140/90 - vitamin b complex capsule Take 1 capsule by mouth once daily. - Lactobacillus acidophilus (PROBIOTIC ORAL) Take 1 capsule by mouth once daily. Problem List As Of Date 08/10/2024 Noted Resolved Malignant neoplasm of upper-outer quadrant of r*06/27/2005 ANEMIA IN NEOPLASTIC DISEASE [D63.0] 08/18/2005 AGRANULOCYTOSIS [288.0] 10/20/2005 Iron deficiency anemia [D50.9] 02/19/2006 Vitamin D deficiency [E55.9] 01/03/2011 Enlarged uterus [N85.2] 07/09/2012 Uterine mass [N85.8] 07/09/2012 Abnormal uterine bleeding [N93.9] 07/09/2012 Pain in joint, shoulder region [M25.519] 10/03/2013 Disorders of bursae and tendons in shoulder reg*10/03/2013 Situational insomnia [F51.09] 09/30/2016 Situational anxiety [F41.8] 09/30/2016 Hyperlipidemia, mixed [E78.2] 05/06/2017 Well adult exam [Z00.00] 05/17/2018 Dyslipidemia [E78.5] 11/15/2018 Leucopenia [D72.819] 11/15/2018 Overweight (BMI 25.0-29.9) [E66.3] 11/15/2018 Effusion of right knee joint [M25.461] 04/19/2019 Acute pain of right knee [M25.561] 04/19/2019 Breast lump on right side at 9 o'clock position*04/19/2019 Elevated blood pressure reading without diagnos*04/19/2019 Post-menopausal [Z78.0] 12/20/2019 Dyspareunia in female [N94.10] 12/20/2019 Onychomycosis [B35.1] 12/20/2019 Right shoulder tendinitis [M77.8] 12/20/2019 Chronic right shoulder pain [M25.511, G89.29] 12/20/2019 Hyperglycemia [R73.9] 09/05/2020 Atypical nevus [D22.9] 12/03/2020 Fatigue [R53.83] 09/03/2021 History of lymph node dissection of right axill*09/03/2021 Multiple joint pain [M25.50] 12/10/2021 Myalgia [M79.10] 12/10/2021 Restless legs [G25.81] 12/10/2021 Borderline abnormal thyroid function test [R94.*03/24/2022 (more content not included)... Normal [facility] BD DXA - AXIAL SKELETONon BD DXA - AXIAL SKELETON * * *Final Report* * * DATE OF EXAM: Aug 04 2024 10:24AM WRB [id number] - BD DXA - AXIAL SKELETON / PROCEDURE REASON: multiple diagnoses * * * * Physician Interpretation * * * * EXAMINATION: DXA BONE DENSITOMETRY BD DXA - AXIAL SKELETON PATIENT DEMOGRAPHICS: Age: 64 years, Gender: Female SCANNER INFORMATION: DXA Model: [email or web address] - [employer] C [id number] Date Scanned: 08/04/2024 10:24 AM CLINICAL HISTORY: SCREENING Disorder of bone and cartilage . RISK FACTORS FOR OSTEOPOROSIS AND ASSOCIATED FRACTURES REPORTED BY THIS PATIENT: Please refer to Bone Health Questionnaire in the EMR CURRENT THERAPY: Please refer to Bone Health Questionnaire in the EMR TECHNICAL LIMITATIONS: RESULTS: Lumbar spine (L1, L2, L3, L4): 0.844 g/cm2, T-score -1.8 , Z-score -0.3 Lumbar spine: 2021 : 0.871 g/cm2 No statistically significant change Left Femoral Neck: 0.630 g/cm2, T-score -2.0 , Z-score -0.6 Left Femoral Neck: 2021 : 0.667 g/cm2 No statistically significant change Left Total Hip: 0.799 g/cm2, T-score -1.2 , Z-score -0.1 Left Total Hip: 2021 : 0.834 g/cm2 No statistically significant change CHANGE IS STATISTICALLY SIGNIFICANT IN THE SPINE OR HIP IF GREATER THAN OR EQUAL TO 0.04 g/cm2 VERTEBRAL FRACTURE ASSESSMENT Not performed. TRABECULAR BONE ASSESSMENT TBS not performed: IMPRESSION: THE LOWEST T-SCORE IS -2.0 IN THE LEFT HIP 1) DIAGNOSIS (based on BMD alone): OSTEOPENIA Caution: Medical conditions other than osteoporosis may cause low bone density, such as osteomalacia or renal osteodystrophy. Clinical correlation is necessary. 2) FRACTURE RISK (based on FRAX): 10-year absolute fracture risk: - major osteoporotic fracture = 30 % - hip fracture = 2.3 % - A diagnosis of Osteoporosis, a 10 year probability of hip fracture greater than or equal to 3% or a 10 year probability of any major osteoporosis-related fracture greater than or equal to 20% should be considered for treatment. - DXA scanner generated FRAX calculations may slightly differ from online FRAX calculations due to differences in software versions. - All recommendations and calculations are to be considered as guidelines and should not replace sound clinical judgement - Caution: Fracture risk may be increased independent of BMD in patients with corticosteroid use, age greater than 65 years, or a history of prior fragility fracture. RECOMMENDATIONS: Follow-up in 2 years or as clinically indicated. Patients that are taking corticosteroids, are transplant recipients or have hyperparathyroidism should have annual follow-up. Follow-up scans should always be done on the same machine for accurate comparison. FOR MORE INFORMATION ABOUT DIAGNOSIS AND TREATMENT: [facility]osis [facility] Metabolic Bone Disease:? www.ccf.org/kaiden s/osteo National Osteoporosis Foundation:? www.nof.org International Society of Clinical Densitometry www.iscd.org Credit Front Office Developer: ANA Transcribe Date/Time: Aug 07 2024 1:39P Dictated by : ОЛЬГА SALAS MD This examination was interpreted and the report reviewed and electronically signed by: ОЛЬГА SALAS MD on Aug 07 2024 1:41PM EST [id number] CN -2.0 Normal [facility] Bacteria Ur Culton Bacteria identified Cx Nom (U) ORGANISM ID: 1 >=100,000 CFU/ml Escherichia coli ORGANISM ID: 1 (ESCHERICHIA COLI) ANTIBIOTIC INTERPRETATION KEKE STATUS REFERENCE RANGE Ampicillin S 8 F Susceptible <=8 , Intermediate >8 , Resistant >16 Cefazolin S <=4 F Susceptible 0-16 , Intermediate <0 or >16 , Resistant >16 For uncomplicated urinary tract infections, cefazolin results can be used to predict susceptibility or resistance to cephalexin. Ceftriaxone S <=1 F Susceptible <=1 , Intermediate >1 , Resistant >=4 Cefepime S <=1 F Susceptible <=2 , Susceptible-Dose Dependent >2 , Resistant >=16 Ertapenem S <=0.5 F Susceptible <=0.5 , Intermediate >.5 , Resistant >1 Meropenem S <=0.25 F Susceptible <=1 , Intermediate >1 , Resistant >2 Ampicillin/Sulbact S <=2 F Susceptible <=8 , Intermediate >8 , Resistant >16 Piperacillin/Tazobac S <=4 F Susceptible <16 , Susceptible-Dose Dependent >=16 , Resistant >=32 Gentamicin S <=1 F Susceptible <=2 , Intermediate >2 , Resistant >=8 Tobramycin S <=1 F Susceptible <4 , Intermediate >=4 , Resistant >=8 Trimeth sulfameth S <=20 F Susceptible <=40 , Resistant >40 Ciprofloxacin S <=0.25 F Susceptible <0.5 , Intermediate >=.5 , Resistant >=1 Nitrofurantoin S <=16 F Susceptible <=32 , Intermediate >32 , Resistant >64 Abnormal [facility] Comment on above: Performed By: #### 6 30-4 ####[facility] [id number] [address] [facility] CNOVon 07-06-2024 CNOV Office Visit ([facility]) DOREEN BETANCUR ([id number]) 1960 F Date Time Provider Department 07/06/24 1:00 PM HAM MARTINEZ [facility] During your visit today, we recorded the following information about you: Temperature Pulse Respiration Blood pressure 98.2 degrees 80/minute 16/minute 136/80 Weight 72.1 kg Ham Martinez DO 07/06/2024 8:57 PM Signed CC: Doreen Jeffrey Gypsy is a 64 year old female who presents to the office for followu p HPI: At last OFFICE VISIT Mar 2024 Still struggling with stiffness in joints and aching in the muscles, diffusely. Has been occurring since being on chemotherapy as well as on Femara. Has at least 1 more year of this medication for hormone blockade- she is unsure if she will continue it further on. Hx of breast cancer x 2 separate episodes. Mood, currently taking zoloft 50 mg a day, wondering if dose needs to go up. Struggles mostly with her depression in the winter months. Does know about light box therapy as well that she can use. No SI or HI. Currently mood is doing well. BPPV, balance concerns. Will be having therapy on this in the next few weeks- has had to delay the vestibular PHYSICAL THERAPY since her truck hasn't been drivable and not able to get there. Currently Restless legs, leg cramping of lower legs and charley horse symptoms. B/l legs, comes and goes, mostly occurring at night. Recently with labs of normal potassium, sodium, magnesium levels. Unsure what is causing this Increased urinary urgency and frequency symptoms. Comes and goes the last few days. No fevers or chills or flank pain Soreness in her mouth, does have invisiline and recently some soreness in her throat. No obvious fevers or chills. No PND symptosm. This has been going on for 1 month Mood, stable, taking medications as prescribed. PAST MEDICAL HISTORY Diagnosis Date Abnormality of ascending aorta 05/2023 borderline dilation 3.8 cm Anxiety Malignant neoplasm of breast (female), unspecified site 05/27/2005 right breast Vitamin D deficiency PAST SURGICAL HISTORY Procedure Laterality Date BREAST RECONSTRUCTION Right DELIVERY ONLY times four COLONOSCOPY FLX DX W/COLLJ SPEC WHEN PFRMD 12/11/2014 Repeat 2024 DILATION AND CURETTAGE DXAND/THER NONOBSTETRIC LAPAROSCOPY W/RMVL ADNEXAL STRUCTURES 07/05/2013 Laprascopic BSO h/o breast ca LIG/TRNSXJ FLP TUBE ABDL/VAG APPR UNI/BI 1998(?) MAST MODF RAD W/AX LYMPH NOD W/WO PECT/VICKY MIN Right 10/11/2019 Dr. Arceo, [facility] PAST SURGICAL HISTORY OF 06/17/2005 lumpectomy and removal of lymph nodes PAST SURGICAL HISTORY OF 2018 Laser surgery vaginal Current Outpatient Medications Medication Sig DULoxetine (CYMBALTA) 60 mg capsule Take 1 capsule by mouth once daily. levothyroxine (LEVOXYL) 75 mcg tablet Take 1 tablet by mouth once daily. Take daily in the morning before eating, Take on empty stomach. For Thyroid lansoprazole (PREVACID) 30 mg capsule Take 1 capsule by mouth daily before breakfast. For acid reflux, 1/2 hr before meal. ezetimibe (ZETIA) 10 mg tablet Take 1 tablet by mouth once daily. At supper or bedtime sertraline (ZOLOFT) 50 mg tablet Take 1.5 tablets by mouth once daily. meclizine (ANTIVERT) 12.5 mg tab Take 1 tablet by mouth every 6 hours as needed (dizziness). letrozole (FEMARA) 2.5 mg tablet Take 1 tablet by mouth once daily. triamcinolone acetonide (KENALOG) 0.5 % cream Apply 1 application to affected area two times a day. For rash/itching. Apply sparingly. Avoid face/skin fold. clonazePAM (KLONOPIN) 0.5 mg tablet Take 1 tablet by mouth twice daily as needed for anxiety for up to 30 days. cholecalciferol (VITAMIN D3) 5,000 unit tab Take 5,000 Units by mouth once daily. MAGNESIUM ORAL Take 1 tablet by mouth once daily. Estradiol (VAGIFEM) 10 mcg vaginal tablet Use 10 mcg vaginally three times a week. lisinopril (ZESTRIL, PRINIVIL) 10 mg tablet Take 1 tablet by mouth once daily. As needed for BLOOD PRESSURE >140/90 vitamin b complex capsule Take 1 capsule by mouth once daily. Lactobacillus acidophilus (PROBIOTIC ORAL) Take 1 capsule by mouth once daily. No current facility-administere d medications for this visit. ALLERGIES Allergen Reactions Penicillins Intolerance Unknown reaction as a child Dextromethorphan Mental Status Change anxiety Macrobid [Nitrofura* Hot, cold, achy Phenylephrine Intolerance anxiety Prednisone Other: See Comments Heart palpitations Adhesive Tape (Kassie* Intolerance Erythema after ribbon tape Social History Tobacco Use Smoking status: Never Smokeless tobacco: Never Vaping Use Vaping status: Never Used Substance Use Topics Alcohol use: Yes Comment: seldom Drug use: No ROS: See HPI PE: BP 136/80 Pulse 80 Temp (Src) 98.2 (Temporal) Resp 16 Wt 159 lb (72.1kg) LMP 08/10/2012 Gen: AANDOX3, (more content not included)... Normal [facility] CNPNon 07-06-2024 [facility] Telephone (FAMWS) GYPSYDOREEN GREEN ([id number]) 1960 F Date Time Provider Department 07/06/24 HAM MARTINEZ [facility] During your visit today, we recorded the following information about you: Erika German RN 07/06/2024 2:26 PM Signed Patient phoned to ask pcp if you are going to send an AB to her pharmacy for her urine test results? Please advise patient. Ham Martinez DO 07/06/2024 8:42 PM Signed The following approved medication requests have been transmitted electronically. Requested Prescriptions Signed Prescriptions Disp Refills ciprofloxacin HCl (CIPRO) 500 mg tablet 20 tablet 0 Sig: Take 1 tablet by mouth two times a day for 10 days. Authorizing Provider: HAM MARTINEZ DO Quattrocchi, Beth, LPN 07/07/2024 8:25 AM Signed Phoned patient left message to return call and ask to speak to a nurse. Chrystal Liu LPN 07/07/2024 8:36 AM Signed Spoke with pt and information listed below given. Pt verbalizes understanding. Chrystal Liu LPN Allergies As of Date: 07/06/2024 Noted Allergy Reaction PENICILLINS 05/06/2005 5 - Intolerance Comments: Unknown reaction as a child DEXTROMETHORPHAN 09/17/2022 1 - Mental Status Change Comments: anxiety MACROBID (NITROFURANTOIN MONOHYD/*12/23/2006 Comments: Hot, cold, achy PHENYLEPHRINE 09/17/2022 5 - Intolerance Comments: anxiety PREDNISONE 12/26/2020 14 - Other: See Comments Comments: Heart palpitations ADHESIVE TAPE (ROSINS) 07/30/2005 5 - Intolerance Comments: Erythema after ribbon tape Date Reviewed: 05/25/2024 Reviewed by: Becca Magana APRN.SLICING MACHINE TENDER - Fully Assessed Reason for Visit: Patient Question [1517] Order(s):ciprofloxac in HCl (CIPRO) 500 mg tabletTake 1 tablet by mouth two times a day for 10 days.Disp: 20 tabletRfl: 0 Prescriptions as of 07/07/2024 - DULoxetine (CYMBALTA) 60 mg capsule Take 1 capsule by mouth once daily. - levothyroxine (LEVOXYL) 75 mcg tablet Take 1 tablet by mouth once daily. Take daily in the morning before eating, Take on empty stomach. For Thyroid - lansoprazole (PREVACID) 30 mg capsule Take 1 capsule by mouth daily before breakfast. For acid reflux, 1/2 hr before meal. - ciprofloxacin HCl (CIPRO) 500 mg tablet Take 1 tablet by mouth two times a day for 10 days. - ezetimibe (ZETIA) 10 mg tablet Take 1 tablet by mouth once daily. At supper or bedtime - sertraline (ZOLOFT) 50 mg tablet Take 1.5 tablets by mouth once daily. - meclizine (ANTIVERT) 12.5 mg tab Take 1 tablet by mouth every 6 hours as needed (dizziness). - letrozole (FEMARA) 2.5 mg tablet Take 1 tablet by mouth once daily. - triamcinolone acetonide (KENALOG) 0.5 % cream Apply 1 application to affected area two times a day. For rash/itching. Apply sparingly. Avoid face/skin fold. - clonazePAM (KLONOPIN) 0.5 mg tablet Take 1 tablet by mouth twice daily as needed for anxiety for up to 30 days. - cholecalciferol (VITAMIN D3) 5,000 unit tab Take 5,000 Units by mouth once daily. - MAGNESIUM ORAL Take 1 tablet by mouth once daily. - Estradiol (VAGIFEM) 10 mcg vaginal tablet Use 10 mcg vaginally three times a week. - lisinopril (ZESTRIL, PRINIVIL) 10 mg tablet Take 1 tablet by mouth once daily. As needed for BLOOD PRESSURE >140/90 - vitamin b complex capsule Take 1 capsule by mouth once daily. - Lactobacillus acidophilus (PROBIOTIC ORAL) Take 1 capsule by mouth once daily. Problem List As Of Date 07/06/2024 Noted Resolved Malignant neoplasm of upper-outer quadrant of r*06/27/2005 ANEMIA IN NEOPLASTIC DISEASE [D63.0] 08/18/2005 AGRANULOCYTOSIS [288.0] 10/20/2005 Iron deficiency anemia [D50.9] 02/19/2006 Vitamin D deficiency [E55.9] 01/03/2011 Enlarged uterus [N85.2] 07/09/2012 Uterine mass [N85.8] 07/09/2012 Abnormal uterine bleeding [N93.9] 07/09/2012 Pain in joint, shoulder region [M25.519] 10/03/2013 Disorders of bursae and tendons in shoulder reg*10/03/2013 Situational insomnia [F51.09] 09/30/2016 Situational anxiety [F41.8] 09/30/2016 Hyperlipidemia, mixed [E78.2] 05/06/2017 Well adult exam [Z00.00] 05/17/2018 Dyslipidemia [E78.5] 11/15/2018 Leucopenia [D72.819] 11/15/2018 Overweight (BMI 25.0-29.9) [E66.3] 11/15/2018 Effusion of right knee joint [M25.461] 04/19/2019 Acute pain of right knee [M25.561] 04/19/2019 Breast lump on right side at 9 o'clock position*04/19/2019 Elevated blood pressure reading without diagnos*04/19/2019 Post-menopausal [Z78.0] 12/20/2019 Dyspareunia in female [N94.10] 12/20/2019 Onychomycosis [B35.1] 12/20/2019 Right shoulder tendinitis [M77.8] 12/20/2019 Chronic right shoulder pain [M25.511, G89.29] 12/20/2019 Hyperglycemia [R73.9] 09/05/2020 Atypical nevus [D22.9] 12/03/2020 Fatigue [R53.83] 09/03/2021 History of lymph node dissection of right axill*09/03/2021 Multiple joint pain [M25.50] 12/10/2021 Myalgia [M79 (more content not included)... Normal [facility] 25(OH)D3 SerPl-mCncon 12-09- 2024 25-hydroxyvitamin D3 [Mass/Vol] 46.1 ng/mL Normal 31.0-80.0 [facility] Comment on above: Order Comment: Speci men Type: BLOOD SPECIMENOrdering Facility: [facility] Address: [address] [place] [address] Performed By: #### 1 989-3 ####[facility] LABCLIA [id number] [facility] [address] [place] CBC panel Auto (Bld)on 07-04 Erythrocyte distribution width (RBC) [Ratio] 13.0 % Normal 11.5-15.0 [facility] Comment on above: Order Comment: Speci men Type: BLOOD SPECIMENOrdering Facility: [facility] Address: [address] [place] [address] Performed By: #### 5 8410-2 ####[facility] [id number] [address] [place] Hematocrit (Bld) [Volume fraction] 41.0 % Normal 36.0-46.0 [facility] Comment on above: Order Comment: Speci men Type: BLOOD SPECIMENOrdering Facility: [facility] Address: [address] [place] [address] Performed By: #### 5 8410-2 ####[facility]BURGLILL[facility] [id number] [place] [address] [place] Hemoglobin (Bld) [Mass/Vol] 13.3 g/dL Normal 11.5-15.5 [facility] Comment on above: Order Comment: Speci men Type: BLOOD SPECIMENOrdering Facility: [facility] Address: [address] [place] [address] Performed By: #### 5 8410-2 ####[facility] PETERSBURGNCLIA [id number] [place] [address] [place] MCH (RBC) [Entitic mass] 29.8 pg Normal 26.0-34.0 [facility] Comment on above: Order Comment: Speci men Type: BLOOD SPECIMENOrdering Facility: [facility] Address: [address] [place] [address] Performed By: #### 5 8410-2 ####[facility] [id number] [place] [address] [place] MCHC (RBC) [Mass/Vol] 32.4 g/dL Normal 30.5-36.0 [facility] Comment on above: Order Comment: Speci men Type: BLOOD SPECIMENOrdering Facility: [facility] Address: [address] [place] [address] Performed By: #### 5 8410-2 ####[facility] [id number] [place] [address] [place] MCV (RBC) [Entitic vol] 91.7 fL Normal 80.0-100.0 [facility] Comment on above: Order Comment: Speci men Type: BLOOD SPECIMENOrdering Facility: [facility] Address: [address] [place] [address] Performed By: #### 5 8410-2 ####[facility] [id number] [place] [address] [place] Nucleated RBC (Bld) [#/Vol] 10*3/uL Normal <0.01 [facility] Comment on above: Order Comment: Speci men Type: BLOOD SPECIMENOrdering Facility: [facility] Address: [address] [place], [place] [address] Performed By: #### 5 8410-2 ####[facility] [id number] [place] [address] [place] Platelet mean volume (Bld) [Entitic vol] 9.5 fL Normal 9.0-12.7 [facility] Comment on above: Order Comment: Speci men Type: BLOOD SPECIMENOrdering Facility: [facility] Address: [address] [place] [address] Performed By: #### 5 8410-2 ####[facility] MAEGANNCLIA [id number] [place] [address] [place] Platelets (Bld) [#/Vol] 220 10*3/uL Normal 150-400 [facility] Comment on above: Order Comment: Speci men Type: BLOOD SPECIMENOrdering Facility: [facility] Address: [address] [place] [address] Performed By: #### 5 8410-2 ####[facility] JENNYENGLANDNCLIA [id number] [place] [address] [place] RBC (Bld) [#/Vol] 4.47 10*6/uL Normal 3.90-5.20 [facility] Comment on above: Order Comment: Speci men Type: BLOOD SPECIMENOrdering Facility: [facility] Address: [address] [place] [address] Performed By: #### 5 8410-2 ####[facility]GNCL[facility] [id number] [place] [address] [place] WBC (Bld) [#/Vol] 5.10 10*3/uL Normal 3.70-11.00 [facility] Comment on above: Order Comment: Speci men Type: BLOOD SPECIMENOrdering Facility: [facility] Address: [address] [place] [address] Performed By: #### 5 8410-2 ####[facility]GNCL[facility] [id number] [place] [address] [place] Comprehensive metabolic 2000 panelon 07-04-2024 Albumin [Mass/Vol] 4.2 g/dL Normal 3.9-4.9 [facility] Comment on above: Order Comment: Speci men Type: BLOOD SPECIMENOrdering Facility: [facility] Address: [address] [place] [address] Performed By: #### 2 4323-8, ####[facility] [place] LABCLIA [id number] [place] [address] [place] ALP [Catalytic activity/Vol] 100 U/L Normal 34-123 [facility] Comment on above: Order Comment: Speci men Type: BLOOD SPECIMENOrdering Facility: [facility] Address: [address] [place], [place] [address] Performed By: #### 2 432-8, ####[facility] [place] LABCLIA [id number] [place] [address] [place] ALT With P-5'-P [Catalytic activity/Vol] 21 U/L Normal 7-38 [facility] Comment on above: Order Comment: Speci men Type: BLOOD SPECIMENOrdering Facility: [facility] Address: [address] [place], [place] [address] Performed By: #### 2 432-8, ####[facility] [place] LABCLIA [id number] [place] [address] [place] Anion gap [Moles/Vol] 10 mmol/L Normal 8-15 [facility] Comment on above: Order Comment: Speci men Type: BLOOD SPECIMENOrdering Facility: [facility] Address: [address] [place] [address] Performed By: #### 2 4328, ####[facility] [place] LABCLIA [id number] [place] [address] [place] AST With P-5'-P [Catalytic activity/Vol] 21 U/L Normal 13-35 [facility] Comment on above: Order Comment: Speci men Type: BLOOD SPECIMENOrdering Facility: [facility] Address: [address] [place] [address] Performed By: #### 2 4323-8, ####[facility] [place] LABCLIA [id number] [place] [address] [place] Bilirubin [Mass/Vol] 0.5 mg/dL Normal 0.2-1.[address] [facility] Comment on above: Order Comment: Speci men Type: BLOOD SPECIMENOrdering Facility: [facility] Address: [address] [place], [place] [address] Performed By: #### 2 4323-8, ####[facility] [place] LABCLIA [id number] [place] [address] [place] Calcium [Mass/Vol] 9.9 mg/dL Normal 8.5-10.2 [facility] Comment on above: Order Comment: Speci men Type: BLOOD SPECIMENOrdering Facility: [facility] Address: [address] [place] [address] Performed By: #### 2 4323-8, ####[facility] [place] LABCLIA [id number] [facility] [address] [place] Chloride [Moles/Vol] 104 mmol/L Normal 98-[address] [facility] Comment on above: Order Comment: Speci men Type: BLOOD SPECIMENOrdering Facility: [facility] Address: [address] [place] [address] Performed By: #### 2 4323-8, ####[facility] [place] LABCLIA [id number] [facility] [facility] [place] [address] [place] CO2 [Moles/Vol] 28 mmol/L Normal 22-30 [facility] Comment on above: Order Comment: Speci men Type: BLOOD SPECIMENOrdering Facility: [facility] Address: [address] [place] [address] Performed By: #### 2 4323-8, ####[facility] [place] LABCLIA [id number] [facility] [place] [address] [place] Creatinine [Mass/Vol] 0.74 mg/dL Normal 0.58-0.96 [facility] Comment on above: Order Comment: Speci men Type: BLOOD SPECIMENOrdering Facility: [facility] Address: [address] [place] [address] Performed By: #### 2 4323-8, 26915-4 ####[facility] LABCLIA [id number] [place] [address] [place] Creatinine and Glomerular filtration rate.predicted panel (S/P/Bld) 92 mL/min/1.73m??? Normal >=60 [facility] Comment on above: Order Comment: Heike christine Type: BLOOD SPECIMENOrdering Facility: [facility] Address: [address] [place] [address] Result Comment: Tessie mated Glomerular Filtration Rate (eGFR) is calculated using the 2020 CKD-EPI creatinine equation. This equation utilizes serum creatinine, sex, and age as parameters. The creatinine assay has traceable calibration to isotope dilution-mass spectrometry. Refer to KDIGO guidelines for clinical interpretation. In patients with unstable renal function, e.g. those with acute kidney injury, the eGFR may not accurately reflect actual GFR. Performed By: #### 2 4323-8, 42303-3 ####[facility] LABCLIA [id number] [place] [address] [place] Glucose [Mass/Vol] 95 mg/dL Normal 74-99 [facility] Comment on above: Order Comment: Heike christine Type: BLOOD SPECIMENOrdering Facility: [facility] Address: [address] [place] [address] Result Comment: The [place] Diabetes Association (ADA) provides guidance for cutoff values for fasting glucose and random glucose. The ADA defines fasting as no caloric intake for at least 8 hours. Fasting plasma glucose results between 100 to 125 mg/dL indicate increased risk for diabetes (prediabetes). Fasting plasma glucose results greater than or equal to 126 mg/dL meet the criteria for diagnosis of diabetes. In the absence of unequivocal hyperglycemia, results should be confirmed by repeat testing. In a patient with classic symptoms of hyperglycemia or hyperglycemic crisis, random plasma glucose results greater than or equal to 200 mg/dL meet the criteria for diagnosis of diabetes. Reference: Standards of Medical Care in Diabetes 2016, Scottish Diabetes Association. Diabetes Care. 2016.39(Suppl 1). Performed By: #### 2 4323-8, ####[facility] [place] LABCLIA [id number] [place] [address] [place] Potassium [Moles/Vol] 4.7 mmol/L Normal 3.7-5.1 [facility] Comment on above: Order Comment: Speci men Type: BLOOD SPECIMENOrdering Facility: [facility] Address: [address] [place] [address] Performed By: #### 2 4328, ####[facility] [place] LABCLIA [id number] [place] [address] [place] Protein [Mass/Vol] 7.2 g/dL Normal 6.3-8.0 [facility] Comment on above: Order Comment: Speci men Type: BLOOD SPECIMENOrdering Facility: [facility] Address: [address] [place] [address] Performed By: #### 2 43210-01, ####[facility] [place] LABCLIA [id number] [place] [address] [place] Sodium [Moles/Vol] 142 mmol/L Normal 136-144 [facility] Comment on above: Order Comment: Speci men Type: BLOOD SPECIMENOrdering Facility: [facility] Address: [address] [place] [address] Performed By: #### 2 4328, ####[facility] [place] LABCLIA [id number] [place] [address] [place] Urea nitrogen [Mass/Vol] 23 mg/dL High 7-21 [facility] Comment on above: Order Comment: Speci men Type: BLOOD SPECIMENOrdering Facility: [facility] Address: [address] [place] [address] Performed By: #### 2 4323-8, ####[facility] [place] LABCLIA [id number] [place] [address] [place] HbA1c (Bld)on 07-04-2024 Average glucose Estimated from glycated hemoglobin (Bld) [Mass/Vol] 111 mg/dL Normal [facility] Comment on above: Order Comment: Heike christine Type: BLOOD SPECIMENOrdering Facility: [facility] Address: [address] [place] [address] Result Comment: eAG: (Estimated average glucose) is a calculated value from HgbA1c and is technical services representative of the average blood glucose level in the last 2-3 month period. Performed By: #### 5 5454-3 ####[facility] LABCLIA [id number] [address] STATES OF [facility] HbA1c (Bld) [Mass fraction] 5.5 % Normal 4.3-5.6 [facility] Comment on above: Order Comment: Heike christine Type: BLOOD SPECIMENOrdering Facility: [facility] Address: [address] [place] [address] Result Comment: Amer ican Diabetes Association guidelines indicate that patients with HgbA1c in the range 5.7-6.4% are at increased risk for development of diabetes, and intervention by lifestyle modification may be beneficial. HgbA1c greater or equal to 6.5% is considered diagnostic of diabetes. Performed By: #### 5 5454-3 ####[facility] LABIA [id number] [address] Iron and Iron binding capaci ty panelon 07-04-2024 Iron [Mass/Vol] 81 ug/dL Normal 41-186 [facility] Comment on above: Order Comment: Heike christine Type: BLOOD SPECIMENOrdering Facility: [facility] Address: [address] [place] [address] Performed By: #### 2 132-9, 69172-9 ####[facility] LABCLIA [id number] [address] [place]#### 46360-0 ####[facility] LABCLIA [id number] [address] STATES OF [facility] [id number] [place] [address] [place] Iron binding capacity [Mass/Vol] 301 ug/dL Normal 232-386 [facility] Comment on above: Order Comment: Speci men Type: BLOOD SPECIMENOrdering Facility: [facility] Address: [address] [place] [address] Performed By: #### 2 132-9, 56939-1 ####[facility] LABCLIA [id number] [place] [address] [place]#### 63964-3 ####[facility] LABCLIA [id number] [place] [address] [place] [facility] [id number] [place] [address] [place] Iron/TIBC [Molar ratio] 26.9 % Normal 15.0-57.0 [facility] Comment on above: Order Comment: Speci men Type: BLOOD SPECIMENOrdering Facility: [facility] Address: [address] [place] [address] Performed By: #### 2 132-9, 22359-5 ####[facility] LABCLIA [id number] [place] [address] [place]#### 61467-6 ####[facility] LABCLIA [id number] [place] [id number] [place] [facility] [id number] [place] [address] [place] Lipid 1996 panelon 4 Cholesterol [Mass/Vol] 231 mg/dL High <200 [facility] Comment on above: Order Comment: Speci men Type: BLOOD SPECIMENOrdering Facility: [facility] Address: [address] [place] [address] Result Comment: <200 mg/dL, Desirable 200-239 mg/dL, Borderline high >239 mg/dL, High Performed By: #### 2 132-9, 68524-8 ####[facility] LABCLIA [id number] [place] [address] [place]#### 36370-1 ####[facility] LABCL[facility] [id number] [place] [address] [place] [facility] [id number] [address] Cholesterol in HDL [Mass/Vol] 59 mg/dL Normal >39 [facility] Comment on above: Order Comment: Speci men Type: BLOOD SPECIMENOrdering Facility: [facility] Address: [address] [place] [address] Result Comment: 40-5 9 mg/dL, Acceptable >59 mg/dL, High: Negative risk factor for coronary heart disease <40 mg/dL, Low: Positive risk factor for coronary heart disease Performed By: #### 2 132-9, 26615-4 ####[facility] LABCLIA [id number] [place] [address] [place]#### 39319-5 ####[facility] LABCLIA [id number] [place] [address] [place] [facility] [id number] [address] [place] Cholesterol in LDL [Mass/Vol] 151 mg/dL High <100 [facility] Comment on above: Order Comment: Speci men Type: BLOOD SPECIMENOrdering Facility: [facility] Address: [address] [place] [address] Result Comment: <100 mg/dL, Optimal 100-129 mg/dL, Near optimal/above optimal 130-159 mg/dL, Borderline high 160-189 mg/dL, High >189 mg/dL, Very high Secondary prevention optimal LDL Cholesterol levels are recommended to be < 70 mg/dL Performed By: #### 2 132-9, 01679-6 ####[facility] LABCLIA [id number] [place] [address] [place]#### 40487-9 ####[facility] LABCLIA [id number] [address] [address] [facility] [id number] [place] [address] [place] Cholesterol in LDL/Cholesterol in HDL [Mass ratio] 2.56 {ratio} High <2.54 [facility] Comment on above: Order Comment: Speci men Type: BLOOD SPECIMENOrdering Facility: [facility] Address: [address] [place] [address] Result Comment: Refe rence: 1. National Cholesterol Education Program ATP III Guideline At-A-Glance Quick Desk Reference: National Heart, Lung, and Blood [place]. National Institutes of Health. 2001: NIH Publication No. 01-3305. 2. An International Atherosclerosis Society position paper: global recommendations for the management of dyslipidemia: executive summary, Atherosclerosis. 2014: 232(2):410-413. Performed By: #### 2 132-9, 43287-8 ####[facility] LABCLIA [id number] [place] [address] [place]#### 89543-5 ####[facility]CL[facility] [id number] [address] [address] [place] [facility] [id number] [place] [address] [place] Cholesterol in VLDL [Mass/Vol] 21 mg/dL Normal <30 [facility] Comment on above: Order Comment: Speci men Type: BLOOD SPECIMENOrdering Facility: [facility] Address: [address] [place] [address] Performed By: #### 2 132-9, 04745-0 ####[facility] LABCLIA [id number] [place] [address] [place]#### 27716-0 ####[facility]CLIA [id number] [place] [address] [place] [facility] [id number] [place] [address] [place] Cholesterol non HDL [Mass/Vol] 172 mg/dL High <130 [facility] Comment on above: Order Comment: Speci men Type: BLOOD SPECIMENOrdering Facility: [facility] Address: [address] [place] [address] Result Comment: <130 mg/dL, Optimal 130-159 mg/dL, Near optimal/above optimal 160-189 mg/dL, Borderline high 190-219 mg/dL, High >219 mg/dL, Very high Secondary prevention optimal non HDL Cholesterol levels are recommended to be <100 mg/dL Performed By: #### 2 132-9, 48151-8 ####[facility] LABCLIA [id number] [place] [address] [place]#### 83846-8 ####[facility]CL[facility] [id number] [place] [address] [place] [facility] [id number] [place] [address] [place] Cholesterol.total/Chol esterol in HDL [Mass ratio] 3.92 {ratio} Normal <5.10 [facility] Comment on above: Order Comment: Speci men Type: BLOOD SPECIMENOrdering Facility: [facility] Address: [address] [place] [address] Performed By: #### 2 132-9, 66231-9 ####[facility]CLIA [id number] [place] [address] [place]#### 25780-1 ####[facility] [id number] [id number] [place] [address] [place] FASTING TIME 12 hrs Normal [facility] Comment on above: Order Comment: Speci men Type: BLOOD SPECIMENOrdering Facility: [facility] Address: [address] [place] [address] Performed By: #### 2 132-9, 75725-7 ####[facility] LABCLIA [id number] [place] [address] [place]#### 94156-0 ####[facility] [id number] [id number] [place] [address] [place] Triglyceride [Mass/Vol] 106 mg/dL Normal <150 [facility] Comment on above: Order Comment: Speci men Type: BLOOD SPECIMENOrdering Facility: [facility] Address: [address] [place] [address] Result Comment: <150 mg/dL, Normal 150-199 mg/dL, Borderline high 200-499 mg/dL, High >499 mg/dL, Very high Performed By: #### 2 132-9, 97169-5 ####[facility]CL[facility] [id number] [place] [address] [place]#### 17955-7 ####[facility] [id number] [place] [address] [place] [facility] [id number] [place] [address] [place] Magnesium [facility] 07-04 Magnesium [Mass/Vol] 2.1 mg/dL Normal 1.7-2.[address] [facility] Comment on above: Order Comment: Speci men Type: BLOOD SPECIMENOrdering Facility: [facility] Address: [address] [place] [address] Performed By: #### 2 4323-8, 34627-3 ####[facility] LABCLIA [id number] [place] [address] [facility] Vit B12 [facility] 024 Cobalamin (Vitamin B12) [Mass/Vol] 773 pg/mL Normal 232-1245 [facility] Comment on above: Order Comment: Speci men Type: BLOOD SPECIMENOrdering Facility: [facility] Address: [address] [place] [address] Performed By: #### 2 132-9, 68399-8 ####[facility]CL[facility] [id number] [address] OF [place]#### 43930-8 ####[facility] [id number] [address] [id number] [address] [place] [id number] 05-25-2024 [id number] HNO ID: [id number] Author: JILL MARCELO PT Service: ? Author Type: Physical Therapist Type: [id number] Filed: 05/25/2024 13:27 Note Text: [facility] Physical Therapy Plan of Care Certification Patient Name: Doreen Betancur : 1960 [facility] #: [id number] Date: 05/25/2024 To: Ham Martinez DO From Therapist: Jill Marcelo PT RE: Patient Certification/ Recertification Your review, approval and electronic signature are required in order to comply with Payor: ANTHEM / Plan: BLUE ACCESS PPO / Product Type: PPO / regulations. The identified Physical Therapy PLAN OF CARE for the patient is as follows: R42 Vertigo (primary encounter diagnosis) PLAN OF CARE UPDATE: Assessment: Doreen Betancur demonstrates improvements in walking. The patient has progressed toward goals. Patient continues to present with impairments in ADL's, independence in exercise, overall function, patient reported outcome measures, and symptom management that interfere with walking, bed mobility (positional changes) . Current prognosis is Good due to: good support system/ coping skills, within-session changes, positive past response to therapy, acuteness of condition, current objective clinical presentation, good overall health status . The patient will benefit from continued skilled therapy services to meet the updated goals for this plan of care as noted below. Goals for Episode of Care: established 04/13/24 Goals updated on 05/25/2024. Patient will have negative positional testing for BPPV. -- NOT MET Patient will be independent with home exercise program and progression. -- PROGRESSING Patient will return to prior level of function with all activities of daily living with trace reports of dizziness. -- PROGRESSING Patient Goals: improve balance and resolve vertigo with laying down -- PROGRESSING Time Frame for Goals and Treatment : 07/06/24 Patient Goals: improve balance and resolve vertigo with laying down Planned Interventions, Frequency, and Duration: 1x/week, 6 weeks Total Number of Visits Planned: 6 Patient to be seen for Gait Training (24417), Self-long-term management (58747), Therapeutic activities (96062), Manual therapy (99274), Neuromuscular re-education (44600), Therapeutic exercise (14734), Canalith Repositioning Maneuvers (74295) PLAN FOR NEXT VISIT: assess symptom response to CRM For further details regarding this patient refer to the Physical Therapy electronically documented visit dated 05/25/2024. Provider Attestation I have reviewed the treatment plan for Doreen Betancur, [facility]# [id number] for the period of 05/25/24 -- 07/06/24, established on 05/25/2024. No Data Recorded Signature certifies the need for therapy services. Normal [facility] CNOVSPon 05-25-2024 CNOVSP Visit (SP) Office (GEMINI) DOREEN BETANCUR ([id number]) 1960 F Date Time Provider Department 05/25/24 10:30 AM BECCA MAGANA During your visit today, we recorded the following information about you: Temperature Pulse Blood pressure Weight 97.8 degrees 90/minute 132/89 73.2 kg Becca Magana APRN.SLICING MACHINE TENDER 05/25/2024 11:12 AM Signed Chief Complaint Patient presents with: Established Patient HPI: Doreen Betancur is a 64 year old female who presents here today for follow up breast cancer. Per Dr. 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 Status post 6 doses of paclitaxel given on an every-2- week basis with growth factor support along with trastuzumab (CALGB 91192). Radiation therapy was completed in 11/2005. She had been on tamoxifen since the second week of 12/2005. Finished trastuzumab in June 2006. Completed 5 years' worth of tamoxifen fall 2010. Received injection Zoladex with plan for possible AI therapy, but had significant QUINTANILLA. Decision at that point to hold therapy. Took nearly the whole month for QUINTANILLA to gradually resolve. Underwent lap oophorectomy 06/2013. She was running a weed eater in early March 2019 when a rock was thrown up hitting her in the lateral right breast right along the scar from previous surgery. She developed a tender lump in that area. She underwent diagnostic mammogram and ultrasound which suggested hematoma. She had no skin discoloration. Follow-up breast ultrasound suggested stable findings consistent with hematoma. Repeat ultrasound of the right breast on 08/24/2019 revealed a 1.8 x 2.4 x 1.2 cm lobulated mass in the right breast that was suspicious for malignancy. Biopsy was recommended. Biopsy done 09/02/2019. Pathology: MICROSCOPIC DIAGNOSIS Right breast, ultrasound-guided needle core biopsy: Invasive ductal carcinoma. Nuclear grade - 3/3 Maximal length - 13 mm Other findings - tumor necrosis Reference is made to the patient?s previous right breast lumpectomy from 2004 ([id number]) in which invasive, grade 3/3, poorly differentiated ductal carcinoma was identified. ER (clone [id number]) 4% dim ID (clone 16/1E2) 0% Her-2Neu (clone [id number]) 0 MRI Breast 09/19/2019: RIGHT BREAST: The breast tissue is scattered fibroglandular densities with no background enhancement. There is a 2.5 cm abnormal enhancing mass in the superior outer aspect of the right breast located approximately 6 cm from the nipple. This does correlate to the area that was biopsied and shown to represent a malignancy. No other abnormal enhancing or abnormal morphologically appearing masses are seen in the right breast. LEFT BREAST: The breast tissue is heterogeneously dense with no background enhancement. There are no abnormal enhancing masses or areas of non-mass enhancement in the left breast. There are no enlarged or abnormal lymph nodes. There is no abnormality in the visualized regions of the chest or liver. IMPRESSION: There is a known malignancy in the right breast. Surgical consultation is recommended as well as radiation oncology and medical oncology consultation. Short-term six-month follow-up mammogram is recommended if the patient and the surgeon opt to do a lumpectomy. Underwent right modified radical mastectomy along with right axillary lymph node dissection on 10/11/2019. Pathology: FROZEN SECTION DIAGNOSIS A. Right axillary sentinel lymph nodes, biopsy: Two out of two lymph nodes negative for carcinoma. MICROSCOPIC DIAGNOSIS A. Right axillary sentinel lymph nodes, biopsy: Three out of three lymph nodes, negative for metastatic carcinoma. B. Right breast, mastectomy: Invasive poorly differentiated ductal carcinoma. See cancer check list below. COMMENT INVASIVE BREAST CANCER SUMMARY: Procedure: Mastectomy Specimen: Type: Total breast Size: 17 x 15 x 5 cm Laterality: Right breast Invasive Tumor: Size of tumor: 2.5 x 2 x 2 cm Focality: Single focus of invasive tumor Histologic type: Invasive ductal carcinoma. Histologic grade (Sri grade): Glandular/tubular differentiation score: 3 Nuclear pleomorphism score: 3 Mitotic count score: 3 Overall grade: 3 (score of 9/9) Lymph-vascular invasion: Not identified Ductal Carcinoma In Situ: Not identified Lobular Carcinoma In Situ: Not identified Tumor extension: Skin: Free of carcinoma Nipple: Free of carcinoma Skeletal muscle: Free of carcinoma Margins Involved by Invasive Carcinoma: None Distance from closest margin: 1.5 mm from superior margin Margins Involved by In Situ Carcinoma: Not applicable Lymph Nodes: Number of sentinel lymph nodes exami (more content not included)... Normal [facility] CNTHERAPYon 05-25-2024 CNTHERAPY OT/PT/Speech Visit (PTWS) DOREEN BETANCUR ([id number]) 1960 F Date Time Provider Department 05/25/24 12:00 PM JILL MARCELO PTWS Date Time Provider Department [place] 05/25/2024 12:00 PM [id number] MARCELO PTWS Cesar Bronson Reason for Visit: PT Progress Note [1596] Primary Visit Diagnosis:Vertigo [R42] Allergies As of Date: 05/25/2024 Noted Allergy Reaction PENICILLINS 05/06/2005 5 - Intolerance Comments: Unknown reaction as a child DEXTROMETHORPHAN 09/17/2022 1 - Mental Status Change Comments: anxiety MACROBID (NITROFURANTOIN MONOHYD/*12/23/2006 Comments: Hot, cold, achy PHENYLEPHRINE 09/17/2022 5 - Intolerance Comments: anxiety PREDNISONE 12/26/2020 14 - Other: See Comments Comments: Heart palpitations ADHESIVE TAPE (ROSINS) 07/30/2005 5 - Intolerance Comments: Erythema after ribbon tape Date Reviewed: 05/25/2024 Reviewed by: Becca Magana APRN.SLICING MACHINE TENDER - Fully Assessed Prescriptions as of 05/25/2024 - ezetimibe (ZETIA) 10 mg tablet Take 1 tablet by mouth once daily. At supper or bedtime - DULoxetine (CYMBALTA) 60 mg capsule Take 1 capsule by mouth once daily. - levothyroxine (LEVOXYL) 75 mcg tablet Take 1 tablet by mouth once daily. Take daily in the morning before eating, Take on empty stomach. For Thyroid - sertraline (ZOLOFT) 50 mg tablet Take 1.5 tablets by mouth once daily. - meclizine (ANTIVERT) 12.5 mg tab Take 1 tablet by mouth every 6 hours as needed (dizziness). - letrozole (FEMARA) 2.5 mg tablet Take 1 tablet by mouth once daily. - triamcinolone acetonide (KENALOG) 0.5 % cream Apply 1 application to affected area two times a day. For rash/itching. Apply sparingly. Avoid face/skin fold. - clonazePAM (KLONOPIN) 0.5 mg tablet Take 1 tablet by mouth twice daily as needed for anxiety for up to 30 days. - cholecalciferol (VITAMIN D3) 5,000 unit tab Take 5,000 Units by mouth once daily. - MAGNESIUM ORAL Take 1 tablet by mouth once daily. - Estradiol (VAGIFEM) 10 mcg vaginal tablet Use 10 mcg vaginally three times a week. - lisinopril (ZESTRIL, PRINIVIL) 10 mg tablet Take 1 tablet by mouth once daily. As needed for BLOOD PRESSURE >140/90 - vitamin b complex capsule Take 1 capsule by mouth once daily. - Lactobacillus acidophilus (PROBIOTIC ORAL) Take 1 capsule by mouth once daily. Hplc Chemist: Therapy (PT/OT/Speech/Resp) ID: [id number] 05/25/2024 12:25 PM Author: JILL MARCELO Signed by JILL MARCELO PT on 05/25/2024 at 12:25 PM Document text: Program_ID:[id number] Access Code: [email or web address] URL: [email or web address] Date: 05-25-2024 Prepared By: Jill Marcelo Program Notes Patient Education - cc BPPV Self Semont Maneuver Posterior Canal -------- Normal [facility] THERAPY NTon 05-25-2024 THERAPY NT HNO ID: [id number] Author: JILL MARCELO PT Service: ? Author Type: Physical Therapist Type: Therapy (PT/OT/Speech/Resp) Filed: 05/25/2024 12:25 Note Text: Program_ID:[id number] Access Code: [email or web address] URL: [email or web address] Date: 05-25-2024 Prepared By: Jill Marcelo Program Notes Patient Education - cc BPPV Self Semont Maneuver Posterior Canal Normal [facility] CNPNon 05-17-2024 CNPN Telephone (FAMPWS) DOREEN BETANCUR ([id number]) 1960 F Date Time Provider Department 05[facility]17[facility] During your visit today, we recorded the following information about you: Allergies As of Date: 05/17/2024 Noted Allergy Reaction PENICILLINS 05/06/2005 5 - Intolerance Comments: Unknown reaction as a child DEXTROMETHORPHAN 09/17/2022 1 - Mental Status Change Comments: anxiety MACROBID (NITROFURANTOIN MONOHYD/*12/23/2006 Comments: Hot, cold, achy PHENYLEPHRINE 09/17/2022 5 - Intolerance Comments: anxiety PREDNISONE 12/26/2020 14 - Other: See Comments Comments: Heart palpitations ADHESIVE TAPE (ROSINS) 07/30/2005 5 - Intolerance Comments: Erythema after ribbon tape Date Reviewed: 03/30/2024 Reviewed by: Jess Lowery LPN - Fully Assessed Visit Diagnosis:Sinobronch itis [J32.9, J40] Order(s):[] azithromycin (ZITHROMAX) 250 mg tabletTake 2 tablets by mouth once daily for 1 day, THEN 1 tablet once daily for 4 days.Disp: 6 tabletRfl: 0 Prescriptions as of 07/07/2024 - DULoxetine (CYMBALTA) 60 mg capsule Take 1 capsule by mouth once daily. - levothyroxine (LEVOXYL) 75 mcg tablet Take 1 tablet by mouth once daily. Take daily in the morning before eating, Take on empty stomach. For Thyroid - lansoprazole (PREVACID) 30 mg capsule Take 1 capsule by mouth daily before breakfast. For acid reflux, 1/2 hr before meal. - ciprofloxacin HCl (CIPRO) 500 mg tablet Take 1 tablet by mouth two times a day for 10 days. - ezetimibe (ZETIA) 10 mg tablet Take 1 tablet by mouth once daily. At supper or bedtime - sertraline (ZOLOFT) 50 mg tablet Take 1.5 tablets by mouth once daily. - meclizine (ANTIVERT) 12.5 mg tab Take 1 tablet by mouth every 6 hours as needed (dizziness). - letrozole (FEMARA) 2.5 mg tablet Take 1 tablet by mouth once daily. - triamcinolone acetonide (KENALOG) 0.5 % cream Apply 1 application to affected area two times a day. For rash/itching. Apply sparingly. Avoid face/skin fold. - clonazePAM (KLONOPIN) 0.5 mg tablet Take 1 tablet by mouth twice daily as needed for anxiety for up to 30 days. - cholecalciferol (VITAMIN D3) 5,000 unit tab Take 5,000 Units by mouth once daily. - MAGNESIUM ORAL Take 1 tablet by mouth once daily. - Estradiol (VAGIFEM) 10 mcg vaginal tablet Use 10 mcg vaginally three times a week. - lisinopril (ZESTRIL, PRINIVIL) 10 mg tablet Take 1 tablet by mouth once daily. As needed for BLOOD PRESSURE >140/90 - vitamin b complex capsule Take 1 capsule by mouth once daily. - Lactobacillus acidophilus (PROBIOTIC ORAL) Take 1 capsule by mouth once daily. 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] 08/18/2005 AGRANULOCYTOSIS [288.0] 10/20/2005 Iron deficiency anemia [D50.9] 02/19/2006 Vitamin D deficiency [E55.9] 01/03/2011 Enlarged uterus [N85.2] 07/09/2012 Uterine mass [N85.8] 07/09/2012 Abnormal uterine bleeding [N93.9] 07/09/2012 Pain in joint, shoulder region [M25.519] 10/03/2013 Disorders of bursae and tendons in shoulder reg*10/03/2013 Situational insomnia [F51.09] 09/30/2016 Situational anxiety [F41.8] 09/30/2016 Hyperlipidemia, mixed [E78.2] 05/06/2017 Well adult exam [Z00.00] 05/17/2018 Dyslipidemia [E78.5] 11/15/2018 Leucopenia [D72.819] 11/15/2018 Overweight (BMI 25.0-29.9) [E66.3] 11/15/2018 Effusion of right knee joint [M25.461] 04/19/2019 Acute pain of right knee [M25.561] 04/19/2019 Breast lump on right side at 9 o'clock position*04/19/2019 Elevated blood pressure reading without diagnos*04/19/2019 Post-menopausal [Z78.0] 12/20/2019 Dyspareunia in female [N94.10] 12/20/2019 Onychomycosis [B35.1] 12/20/2019 Right shoulder tendinitis [M77.8] 12/20/2019 Chronic right shoulder pain [M25.511, G89.29] 12/20/2019 Hyperglycemia [R73.9] 09/05/2020 Atypical nevus [D22.9] 12/03/2020 Fatigue [R53.83] 09/03/2021 History of lymph node dissection of right axill*09/03/2021 Multiple joint pain [M25.50] 12/10/2021 Myalgia [M79.10] 12/10/2021 Restless legs [G25.81] 12/10/2021 Borderline abnormal thyroid function test [R94.*03/24/2022 Muscle cramp [R25.2] 03/24/2022 Osteopenia of multiple sites [M85.89] 03/24/2022 URI, acute [J06.9] 06/23/2022 Anxiety and depression [F41.9, F32.A] 09/26/2022 Panic attack [F41.0] 09/26/2022 Palpitations [R00.2] 09/26/2022 Lymphedema of arm [I89.0] 11/14/2022 Arm swelling [M79.89] 11/14/2022 Lamellar nail splitting [L60.3] 11/24/2022 Hypothyroidism, acquired [E03.9] 12/19/2022 Muscle spasm of back [M62.830] 01/20/2023 Vertigo [R42] 08/05/2023 Acute effusion of both middle ears [H65.193] 11/25/2023 Chronic pain of both knees [M25.561, M25.562, G*11/25/2023 SOB (shortness of breath) [R06.02] 11/25/2023 Tachycardia [R00.0] 11/25/2023 Dizziness (more content not included)... Normal [facility] CNTHERAPYon 05-02-2024 CNTHERAPY OT/PT/Speech Visit (PTWS) DOREEN BETANCUR ([id number]) 1960 F Date Time Provider Department 05/02/24 2:45 PM JILL MARCELO PTREECE Date Time Provider Department Center 05/02/2024 2:45 PM [id number] MARCELO PTREECE [place] Reason for Visit: Physical Therapy [503] Primary Visit Diagnosis:Vertigo [R42] Allergies As of Date: 05/02/2024 Noted Allergy Reaction PENICILLINS 05/06/2005 5 - Intolerance Comments: Unknown reaction as a child DEXTROMETHORPHAN 09/17/2022 1 - Mental Status Change Comments: anxiety MACROBID (NITROFURANTOIN MONOHYD/*12/23/2006 Comments: Hot, cold, achy PHENYLEPHRINE 09/17/2022 5 - Intolerance Comments: anxiety PREDNISONE 12/26/2020 14 - Other: See Comments Comments: Heart palpitations ADHESIVE TAPE (ROSINS) 07/30/2005 5 - Intolerance Comments: Erythema after ribbon tape Date Reviewed: 03/30/2024 Reviewed by: Jess Lowery LPN - Fully Assessed Prescriptions as of 05/02/2024 - ezetimibe (ZETIA) 10 mg tablet Take 1 tablet by mouth once daily. At supper or bedtime - DULoxetine (CYMBALTA) 60 mg capsule Take 1 capsule by mouth once daily. - levothyroxine (LEVOXYL) 75 mcg tablet Take 1 tablet by mouth once daily. Take daily in the morning before eating, Take on empty stomach. For Thyroid - sertraline (ZOLOFT) 50 mg tablet Take 1.5 tablets by mouth once daily. - meclizine (ANTIVERT) 12.5 mg tab Take 1 tablet by mouth every 6 hours as needed (dizziness). - letrozole (FEMARA) 2.5 mg tablet Take 1 tablet by mouth once daily. - benzonatate (TESSALON PERLE) 100 mg capsule Take 2 capsules by mouth three times a day as needed. - busPIRone (BUSPAR) 7.5 mg tablet Take 1 tablet by mouth three times a day as needed. - triamcinolone acetonide (KENALOG) 0.5 % cream Apply 1 application to affected area two times a day. For rash/itching. Apply sparingly. Avoid face/skin fold. - clonazePAM (KLONOPIN) 0.5 mg tablet Take 1 tablet by mouth twice daily as needed for anxiety for up to 30 days. - cyclobenzaprine (FLEXERIL) 10 mg tablet Take 1 tablet by mouth every 8 hours as needed for muscle spasm or pain (FOR PAIN OR MUSCLE SPASM). - cholecalciferol (VITAMIN D3) 5,000 unit tab Take 5,000 Units by mouth once daily. - metoprolol tartrate, short acting, (LOPRESSOR) 25 mg tablet Take 1 tablet by mouth twice daily as needed (tachycardia, palpitations). - pramipexole (MIRAPEX) 0.125 mg tablet Take 1 tablet by mouth daily at bedtime. - MAGNESIUM ORAL Take 1 tablet by mouth once daily. - Estradiol (VAGIFEM) 10 mcg vaginal tablet Use 10 mcg vaginally three times a week. - lisinopril (ZESTRIL, PRINIVIL) 10 mg tablet Take 1 tablet by mouth once daily. As needed for BLOOD PRESSURE >140/90 - vitamin b complex capsule Take 1 capsule by mouth once daily. - Lactobacillus acidophilus (PROBIOTIC ORAL) Take 1 capsule by mouth once daily. Normal [facility] DBT Breast - bilateral scree chaya 04-14-2024 IMPRESSION: BENIGN There is no mammographic evidence of malignancy. A 1 year screening mammogram is recommended. The exam was reviewed by a staff physician. Cricket Jean D.O. elsy murdock/nasreen:04/13/20 24 15:21:13 Chief Nurse Executive(s): RT Silvia(R)(M), [facility] letter sent: Normal over 40 Mammogram BI-RADS: Category 2: Benign Multiple national specialty organizations have released breast cancer screening guidelines for women at average risk for developing breast cancer - guidelines that are based on both evidence and opinion, yet differ on when to start and how often to screen for breast cancer. With representation from Breast Imaging, Internal Medicine, Women's Health, Family Medicine, and Medical/Surgical Oncology, the [facility] has carefully reviewed the data and reached the following consensus: 1) All women should engage in shared decision-making with their providers to decide when to start and how often to screen; 2) All women should have the opportunity to start screening mammography at age 40; 3) For women ages 45-55, we recommend annual screening mammograms; 4) For women ages 55 and over, we support both the transition from an annual to a biennial interval if this aligns more with patient's values and preferences, or continuation with annual screening; 5) All women should discuss with their providers when to stop screening mammograms. Credit Front Office Developer: Nasreen Transcribe Date/Time: Apr 13 2024 10:39A Dictated by: ZITA JEAN, DO This examination was interpreted and the report reviewed and electronically signed by: CRICKET VILLAR MD on Apr 13 2024 3:21PM [facility] DIVISION OF RADIOLOGY * * *Final Report* * * DATE OF EXAM: Apr 13 2024 10:51AM [id number] - [facility] SCREENING W KEZIA / PROCEDURE REASON: multiple diagnoses * * * * Physician Interpretation * * * * RESULT: #[id number] - [facility] SCREENING W KEZIA UNILATERAL LEFT DIGITAL SCREENING MAMMOGRAM TOMOSYNTHESIS WITH CAD: 04/13/2024 HISTORY: Pt perfers not to do rt breast due to tram /Screening Mammogram with KEZIA - patient reports NO breast symptoms /priors available for comparison Multiple Diagnoses. RESULT: TECHNIQUE: The study was acquired using full field digital technology and interpreted from soft copy. Digital Breast Tomosynthesis (DBT) images were obtained and used to assist in the interpretation of this examination. Current study was also evaluated with a Computer Aided Detection (CAD). Comparison is made to exams dated: 03/14/2022 mammogram, 03/16/2023 mammogram, and [facility]. The breasts are heterogeneously dense, which may obscure small masses. The patient is status post mastectomy right breast with flap reconstruction. There are benign post operative findings in the left breast. No significant masses, calcifications, or other findings are seen in the breast. There has been no significant interval change. DIVISION OF RADIOLOGY Provider, [facility] - 04/14/2024 * * *Final Report* * * DATE OF EXAM: Apr 13 2024 10:51AM [facility] [id number] - [facility] SCREENING W KEZIA / PROCEDURE REASON: multiple diagnoses * * * * Physician Interpretation * * * * RESULT: #[id number] - [facility] SCREENING W KEZIA UNILATERAL LEFT DIGITAL SCREENING MAMMOGRAM TOMOSYNTHESIS WITH CAD: 04/13/2024 HISTORY: Pt perfers not to do rt breast due to tram /Screening Mammogram with KEZIA - patient reports NO breast symptoms /priors available for comparison Multiple Diagnoses. RESULT: TECHNIQUE: The study was acquired using full field digital technology and interpreted from soft copy. Digital Breast Tomosynthesis (DBT) images were obtained and used to assist in the interpretation of this examination. Current study was also evaluated with a Computer Aided Detection (CAD). Comparison is made to exams dated: 03/14/2022 mammogram, 03/16/2023 mammogram, and [facility]/20/[facility]. The breasts are heterogeneously dense, which may obscure small masses. The patient is status post mastectomy right breast with flap reconstruction. There are benign post operative findings in the left breast. No significant masses, calcifications, or other findings are seen in the breast. There has been no significant interval change. IMPRESSION IMPRESSION: BENIGN There is no mammographic evidence of malignancy. A 1 year screening mammogram is recommended. The exam was reviewed by a staff physician. Cricket Jean D.O. elsy murdock/nasreen:04/13/20 24 15:21:13 Chief Nurse Executive(s): RT Silvia(R)(M), [facility] letter sent: Normal over 40 Mammogram BI-RADS: Category 2: Benign Multiple national specialty organizations have released breast cancer screening guidelines for women at average risk for developing breast cancer - guidelines that are based on both evidence and opinion, yet differ on when to start and how often to screen for breast cancer. With representation from Breast Imaging, Internal Medicine, Women's Health, Family Medicine, and Medical/Surgical Oncology, the [facility] has carefully reviewed the data and reached the following consensus: 1) All women should engage in shared decision-making with their providers to decide when to start and how often to screen; 2) All women should have the opportunity to start screening mammography at age 40; 3) For women ages 45-55, we recommend annual screening mammograms; 4) For women ages 55 and over, we support both the transition from an annual to a biennial interval if this aligns more with patient's values and preferences, or continuation with annual screening; 5) All women should discuss with their providers when to stop screening mammograms. Credit Front Office Developer: Nasreen Transcribe Date/Time: Apr 13 2024 10:39A Dictated by: ZITA JEAN, DO This examination was interpreted and the report reviewed and electronically signed by: CRICKET VILLAR MD on Apr 13 2024 3:21PM EST [facility] DBT Breast - bilateral scree ningOrdered By: Lizy Provider on 04-14-2024 [facility] [id number] 04-13-2024 [id number] HNO ID: [id number] Author: JILL MARCELO PT Service: ? Author Type: Physical Therapist Type: [id number] Filed: 04/13/2024 13:58 Note Text: [facility] Rehabilitation and Sports Therapy Physical Therapy Plan of Care Certification Patient Name: Doreen Betancur : 1960 [facility] #: [id number] Date: 04/13/2024 To: Ham Martinez, DO From Therapist: Jill Marcelo PT RE: Patient Certification/ Recertification Your review, approval and electronic signature are required in order to comply with Payor: ARACELI / Plan: BLUE ACCESS PPO / Product Type: PPO / regulations. The identified Physical Therapy PLAN OF CARE for the patient is as follows: R42 Vertigo (primary encounter diagnosis) PLAN OF CARE: Assessment: Doreen Betancur presents with diagnosis of vertigo that interferes with walking . She presents with impairments in ADL's, balance, independence in exercise, overall function, patient reported outcome measures, and symptom management. PROMIS? (Patient-Reported Outcomes Measurement Information System) scores were reviewed and identified as a rehabilitation concern. Prognosis for therapy is Good due to: good support system/ coping skills, within-session changes, positive past response to therapy, acuteness of condition, current objective clinical presentation, good overall health status . She will benefit from skilled therapy services to meet the goals established for this plan of care as noted below. Goals for Episode of Care: established 04/13/24 Patient will have negative positional testing for BPPV. Patient will be independent with home exercise program and progression. Patient will return to prior level of function with all activities of daily living with trace reports of dizziness. Patient Goals: improve balance and resolve vertigo with laying down Time Frame for Goals and Treatment : 05/25/24 Planned Interventions, Frequency, and Duration: Current Frequency: 1x/week Duration: 4 weeks Total Number of Visits Planned: 4 Planned Treatment Interventions: Gait Training (48598), Self-long-term management (34699), Therapeutic activities (71620), Manual therapy (82794), Neuromuscular re-education (92828), Therapeutic exercise (10729), Canalith Repositioning Maneuvers (83185) PLAN FOR NEXT VISIT: assess symptom resposne to R CRM for R posterior canalithiasis Patient demonstrates good understanding of plan of care and treatment. The above goals and plan of care were discussed and agreed upon by patient/family. For further details regarding this patient refer to the Physical Therapy electronically documented visit dated 04/13/2024. Provider Attestation I have reviewed the treatment plan for Doreen Betancur, F# [id number] for the period of 04/13/24 -- 05/25/24, established on 04/13/2024. Signature certifies the need for therapy services. Normal [facility] CNCOon 04-13-2024 CNCO HNO ID: [id number] Author: COORDINATOR, MAMMOGRAPHY, ? Service: ? Author Type: Physician Type: Letter Filed: 04/13/2024 15:21 Note Text: April 14, 2024 PID: [id number] Doreen Betancur [address] [place] [address] Dear Prasanna Floresy, We are pleased to inform you that the results of your recent breast imaging exam on 04/13/2024 are normal. Breast tissue can be either dense or not dense. Dense tissue makes it harder to find breast cancer on a mammogram and also raises the risk of developing breast cancer. Your breast tissue is dense. In some people with dense tissue, other imaging tests in addition to a mammogram may help find cancers. Talk to your healthcare provider about breast density, risks for breast cancer, and your individual situation. Early detection of cancer is very important. We also understand recommendations regarding breast cancer screening are controversial. Please discuss with your primary care provider which strategy is best for you and whether a mammogram is right for you. Your imaging studies and report will be kept on file at [facility] as part of your permanent medical record and are available for your continuing care. Thank you for allowing us to help in meeting your health care needs. Sincerely, Dr. Villar Interpreting Radiologist [facility] (Normal over 40) Normal [facility] CNTHERAPYon 04-13-2024 CNTHERAPY OT/PT/Speech Visit (PTWS) DOREEN BETANCUR ([id number]) 1960 F Date Time Provider Department 04/13/24 11:15 AM JILL MARCELO PTWS Date Time Provider Department Center 04/13/2024 11:15 AM [id number] MARCELO PTWS Cesar Bronson Reason for Visit: PT Eval [747] Primary Visit Diagnosis:Vertigo [R42] Allergies As of Date: 04/13/2024 Noted Allergy Reaction PENICILLINS 05/06/2005 5 - Intolerance Comments: Unknown reaction as a child DEXTROMETHORPHAN 09/17/2022 1 - Mental Status Change Comments: anxiety MACROBID (NITROFURANTOIN MONOHYD/*12/23/2006 Comments: Hot, cold, achy PHENYLEPHRINE 09/17/2022 5 - Intolerance Comments: anxiety PREDNISONE 12/26/2020 14 - Other: See Comments Comments: Heart palpitations ADHESIVE TAPE (ROSINS) 07/30/2005 5 - Intolerance Comments: Erythema after ribbon tape Date Reviewed: 03/30/2024 Reviewed by: Jess Lowery LPN - Fully Assessed Prescriptions as of 04/13/2024 - DULoxetine (CYMBALTA) 60 mg capsule Take 1 capsule by mouth once daily. - levothyroxine (LEVOXYL) 75 mcg tablet Take 1 tablet by mouth once daily. Take daily in the morning before eating, Take on empty stomach. For Thyroid - sertraline (ZOLOFT) 50 mg tablet Take 1.5 tablets by mouth once daily. - meclizine (ANTIVERT) 12.5 mg tab Take 1 tablet by mouth every 6 hours as needed (dizziness). - letrozole (FEMARA) 2.5 mg tablet Take 1 tablet by mouth once daily. - benzonatate (TESSALON PERLE) 100 mg capsule Take 2 capsules by mouth three times a day as needed. - busPIRone (BUSPAR) 7.5 mg tablet Take 1 tablet by mouth three times a day as needed. - triamcinolone acetonide (KENALOG) 0.5 % cream Apply 1 application to affected area two times a day. For rash/itching. Apply sparingly. Avoid face/skin fold. - ezetimibe (ZETIA) 10 mg tablet Take 1 tablet by mouth once daily. At supper or bedtime - clonazePAM (KLONOPIN) 0.5 mg tablet Take 1 tablet by mouth twice daily as needed for anxiety for up to 30 days. - cyclobenzaprine (FLEXERIL) 10 mg tablet Take 1 tablet by mouth every 8 hours as needed for muscle spasm or pain (FOR PAIN OR MUSCLE SPASM). - cholecalciferol (VITAMIN D3) 5,000 unit tab Take 5,000 Units by mouth once daily. - metoprolol tartrate, short acting, (LOPRESSOR) 25 mg tablet Take 1 tablet by mouth twice daily as needed (tachycardia, palpitations). - pramipexole (MIRAPEX) 0.125 mg tablet Take 1 tablet by mouth daily at bedtime. - MAGNESIUM ORAL Take 1 tablet by mouth once daily. - Estradiol (VAGIFEM) 10 mcg vaginal tablet Use 10 mcg vaginally three times a week. - lisinopril (ZESTRIL, PRINIVIL) 10 mg tablet Take 1 tablet by mouth once daily. As needed for BLOOD PRESSURE >140/90 - vitamin b complex capsule Take 1 capsule by mouth once daily. - Lactobacillus acidophilus (PROBIOTIC ORAL) Take 1 capsule by mouth once daily. Hplc Chemist: Addendum Therapy (PT/OT/Speech/Resp) ID: [id number] 04/13/2024 1:56 PM Author: JILL MARCELO Signed by JILL MARCELO PT on 04/13/2024 at 1:56 PM * * * This document replaces document [id number] * * * Document text: Program_ID:[id number] Access Code: [email or web address] URL: [email or web address] Date: 04-13-2024 Prepared By: Jill Marcelo Program Notes Patient Education - What Is BPPV? - BPPV - BPPV -------- Normal [facility] DBT Breast - bilateral ann larkin 04-13-2024 Radiology Study observation (narrative) [facility] KIERRA SCREENING W TOMOon 04-13 KIERRA SCREENING W KEZIA * * *Final Report* * * DATE OF EXAM: Apr 13 2024 10:51AM WRW [id number] - KIERRA SCREENING W KEZIA / PROCEDURE REASON: multiple diagnoses * * * * Physician Interpretation * * * * RESULT: #[id number] - KIERRA SCREENING W KEZIA UNILATERAL LEFT DIGITAL SCREENING MAMMOGRAM TOMOSYNTHESIS WITH CAD: 04/13/2024 HISTORY: Pt perfers not to do rt breast due to tram /Screening Mammogram with KEZIA - patient reports NO breast symptoms /priors available for comparison Multiple Diagnoses. RESULT: TECHNIQUE: The study was acquired using full field digital technology and interpreted from soft copy. Digital Breast Tomosynthesis (DBT) images were obtained and used to assist in the interpretation of this examination. Current study was also evaluated with a Computer Aided Detection (CAD). Comparison is made to exams dated: 03/14/2022 mammogram, 03/16/2023 mammogram, and [facility]/20/2020 [facility]. The breasts are heterogeneously dense, which may obscure small masses. The patient is status post mastectomy right breast with flap reconstruction. There are benign post operative findings in the left breast. No significant masses, calcifications, or other findings are seen in the breast. There has been no significant interval change. IMPRESSION: BENIGN There is no mammographic evidence of malignancy. A 1 year screening mammogram is recommended. The exam was reviewed by a staff physician. elsy Garcia M.D., D.O./nasreen:04/13/20 24 15:21:13 Chief Nurse Executive(s): RT Silvia(R)(M), [facility] letter sent: Normal over 40 Mammogram BI-RADS: Category 2: Benign Multiple national specialty organizations have released breast cancer screening guidelines for women at average risk for developing breast cancer - guidelines that are based on both evidence and opinion, yet differ on when to start and how often to screen for breast cancer. With representation from Breast Imaging, Internal Medicine, Women's Health, Family Medicine, and Medical/Surgical Oncology, the [facility] has carefully reviewed the data and reached the following consensus: 1) All women should engage in shared decision-making with their providers to decide when to start and how often to screen; 2) All women should have the opportunity to start screening mammography at age 40; 3) For women ages 45-55, we recommend annual screening mammograms; 4) For women ages 55 and over, we support both the transition from an annual to a biennial interval if this aligns more with patient's values and preferences, or continuation with annual screening; 5) All women should discuss with their providers when to stop screening mammograms. Credit Front Office Developer: Nasreen Transcribe Date/Time: Apr 13 2024 10:39A Dictated by: ZITA JEAN, DO This examination was interpreted and the report reviewed and electronically signed by: CRICKET VILLAR MD on Apr 13 2024 3:21PM EST [id number] CN Normal [facility] THERAPY NTon 04-13-2024 THERAPY NT HNO ID: [id number] Author: JILL MARCELO, PT Service: ? Author Type: Physical Therapist Type: Therapy (PT/OT/Speech/Resp) Filed: 04/13/2024 13:56 Note Text: Program_ID:[id number] Access Code: [email or web address] URL: [email or web address] Date: 04-13-2024 Prepared By: Jill Marcelo Program Notes Patient Education - What Is BPPV? - BPPV - BPPV Normal [facility] CNOVon 03-30-2024 CNOV Office Visit (FAMPWS) DOREEN BETANCUR ([id number]) 1960 F Date Time Provider Department 03/30/24 10:20 AM HAM MARTINEZ FAMPWS During your visit today, we recorded the following information about you: Temperature Pulse Respiration Blood pressure 98 degrees 80/minute 16/minute 136/80 Weight 73.5 kg JuanHam DO Elza 03/30/2024 12:42 PM Signed CC: Doreen Betancur is a 64 year old female who presents to the office for follow up HPI: Still struggling with stiffness in joints and aching in the muscles, diffusely. Has been occurring since being on chemotherapy as well as on Femara. Has at least 1 more year of this medication for hormone blockade- she is unsure if she will continue it further on. Hx of breast cancer x 2 separate episodes. Mood, currently taking zoloft 50 mg a day, wondering if dose needs to go up. Struggles mostly with her depression in the winter months. Does know about light box therapy as well that she can use. No SI or HI. Currently mood is doing well. BPPV, balance concerns. Will be having therapy on this in the next few weeks- has had to delay the vestibular PHYSICAL THERAPY since her truck hasn't been drivable and not able to get there. PAST MEDICAL HISTORY 05/2023: Abnormality of ascending aorta Comment: borderline dilation 3.8 cm No date: Anxiety 05/27/2005: Malignant neoplasm of breast (female), unspecified site Comment: right breast No date: Vitamin D deficiency PAST SURGICAL HISTORY No date: BREAST RECONSTRUCTION; Right No date: DELIVERY ONLY Comment: times four 12/11/2014: COLONOSCOPY FLX DX W/COLLJ SPEC WHEN PFRMD Comment: Repeat 2024: DILATION AND CURETTAGE DXAND/THER NONOBSTETRIC 07/05/2013: LAPAROSCOPY W/RMVL ADNEXAL STRUCTURES Comment: Laprascopic BSO h/o breast ca 1998(?): LIG/TRNSXJ FLP TUBE ABDL/VAG APPR UNI/BI 10/11/2019: MAST MODF RAD W/AX LYMPH NOD W/WO PECT/VICKY MIN; Right Comment: Dr. Arceo, [facility] 06/17/2005: PAST SURGICAL HISTORY OF Comment: lumpectomy and removal of lymph nodes 2018: PAST SURGICAL HISTORY OF Comment: Laser surgery vaginal Current Outpatient Medications Medication Sig DULoxetine (CYMBALTA) 60 mg capsule Take 1 capsule by mouth once daily. levothyroxine (LEVOXYL) 75 mcg tablet Take 1 tablet by mouth once daily. Take daily in the morning before eating, Take on empty stomach. For Thyroid sertraline (ZOLOFT) 50 mg tablet Take 1.5 tablets by mouth once daily. meclizine (ANTIVERT) 12.5 mg tab Take 1 tablet by mouth every 6 hours as needed (dizziness). letrozole (FEMARA) 2.5 mg tablet Take 1 tablet by mouth once daily. benzonatate (TESSALON PERLE) 100 mg capsule Take 2 capsules by mouth three times a day as needed. busPIRone (BUSPAR) 7.5 mg tablet Take 1 tablet by mouth three times a day as needed. triamcinolone acetonide (KENALOG) 0.5 % cream Apply 1 application to affected area two times a day. For rash/itching. Apply sparingly. Avoid face/skin fold. ezetimibe (ZETIA) 10 mg tablet Take 1 tablet by mouth once daily. At supper or bedtime clonazePAM (KLONOPIN) 0.5 mg tablet Take 1 tablet by mouth twice daily as needed for anxiety for up to 30 days. cyclobenzaprine (FLEXERIL) 10 mg tablet Take 1 tablet by mouth every 8 hours as needed for muscle spasm or pain (FOR PAIN OR MUSCLE SPASM). cholecalciferol (VITAMIN D3) 5,000 unit tab Take 5,000 Units by mouth once daily. metoprolol tartrate, short acting, (LOPRESSOR) 25 mg tablet Take 1 tablet by mouth twice daily as needed (tachycardia, palpitations). pramipexole (MIRAPEX) 0.125 mg tablet Take 1 tablet by mouth daily at bedtime. MAGNESIUM ORAL Take 1 tablet by mouth once daily. Estradiol (VAGIFEM) 10 mcg vaginal tablet Use 10 mcg vaginally three times a week. lisinopril (ZESTRIL, PRINIVIL) 10 mg tablet Take 1 tablet by mouth once daily. As needed for BLOOD PRESSURE >140/90 vitamin b complex capsule Take 1 capsule by mouth once daily. Lactobacillus acidophilus (PROBIOTIC ORAL) Take 1 capsule by mouth once daily. No current facility-administere d medications for this visit. ALLERGIES Allergen Reactions Penicillins Intolerance Unknown reaction as a child Dextromethorphan Mental Status Change anxiety Macrobid [Nitrofura* Hot, cold, achy Phenylephrine Intolerance anxiety Prednisone Other: See Comments Heart palpitations Adhesive Tape (Kassie* Intolerance Erythema after ribbon tape Social History Tobacco Use Smoking status: Never Smokeless tobacco: Never Vaping Use Vaping status: Never Used Substance Use Topics Alcohol use: Yes Comment: seldom Drug use: No ROS: See HPI PE: BP 136/80 Pulse 80 Temp (Src) 98 (Left Tympanic) Resp 16 Wt 162 lb (73.5kg) LMP 08/10/2012 Gen: AANDOX3, NAD, non-toxic appearing HEENT: PERRLA, EOMs intact b/l, nares without drainage, pharynx without erythema, exud (more content not included)... [facility] DORE[facility] BETANC[facility] ([id number]) 1960 F Date Time Provider Department 02/10/24 HAM MARTINEZ [facility] During your visit today, we recorded the following information about you: Ham Martinez DO 02/10/2024 1:08 PM Signed Please inform patient that her UA shows concerns for a kidney stone or UTI as well. Is she having any symptoms? DO Hany Siegel Beth, LPN 02/10/2024 1:46 PM Signed Phoned patient and went over results, notes from Dr Martinez with understanding. Patient said having no flank pain, she did have urgency to void but said that is gone now, no visible blood. Patient uses [facility] for her pharmacy. Notify patient with what PCP wants to do. Ham Martinez DO 02/10/2024 10:16 PM Signed Please call and let her know that I would like her to start on 5 days of antibiotic as below Ham Martinez DO The following approved medication requests have been transmitted electronically. Requested Prescriptions Signed Prescriptions Disp Refills ciprofloxacin HCl (CIPRO) 500 mg tablet 10 tablet 0 Sig: Take 1 tablet by mouth two times a day for 5 days. Authorizing Provider: HAM MARTINEZ DO Rinal, Linda M, LPN 02/11/2024 8:11 AM Signed Pt notified of such. Allergies As of Date: 02/10/2024 Noted Allergy Reaction PENICILLINS 05/06/2005 5 - Intolerance Comments: Unknown reaction as a child DEXTROMETHORPHAN 09/17/2022 1 - Mental Status Change Comments: anxiety MACROBID (NITROFURANTOIN MONOHYD/*12/23/2006 Comments: Hot, cold, achy PHENYLEPHRINE 09/17/2022 5 - Intolerance Comments: anxiety PREDNISONE 12/26/2020 14 - Other: See Comments Comments: Heart palpitations ADHESIVE TAPE (ROSINS) 07/30/2005 5 - Intolerance Comments: Erythema after ribbon tape Date Reviewed: 02/08/2024 Reviewed by: Jess Lowery LPN - Fully Assessed Reason for Visit: Results [95] Order(s):ciprofloxac in HCl (CIPRO) 500 mg tabletTake 1 tablet by mouth two times a day for 5 days.Disp: 10 tabletRfl: 0 Prescriptions as of 02/11/2024 - ciprofloxacin HCl (CIPRO) 500 mg tablet Take 1 tablet by mouth two times a day for 5 days. - meclizine (ANTIVERT) 12.5 mg tab Take 1 tablet by mouth every 6 hours as needed (dizziness). - letrozole (FEMARA) 2.5 mg tablet Take 1 tablet by mouth once daily. - DULoxetine (CYMBALTA) 60 mg capsule Take 1 capsule by mouth once daily. - levothyroxine (LEVOXYL) 75 mcg tablet Take 1 tablet by mouth once daily. Take daily in the morning before eating, Take on empty stomach. For Thyroid - sertraline (ZOLOFT) 50 mg tablet Take 1.5 tablets by mouth once daily. - benzonatate (TESSALON PERLE) 100 mg capsule Take 2 capsules by mouth three times a day as needed. - busPIRone (BUSPAR) 7.5 mg tablet Take 1 tablet by mouth three times a day as needed. - triamcinolone acetonide (KENALOG) 0.5 % cream Apply 1 application to affected area two times a day. For rash/itching. Apply sparingly. Avoid face/skin fold. - ezetimibe (ZETIA) 10 mg tablet Take 1 tablet by mouth once daily. At supper or bedtime - clonazePAM (KLONOPIN) 0.5 mg tablet Take 1 tablet by mouth twice daily as needed for anxiety for up to 30 days. - cyclobenzaprine (FLEXERIL) 10 mg tablet Take 1 tablet by mouth every 8 hours as needed for muscle spasm or pain (FOR PAIN OR MUSCLE SPASM). - cholecalciferol (VITAMIN D3) 5,000 unit tab Take 5,000 Units by mouth once daily. - metoprolol tartrate, short acting, (LOPRESSOR) 25 mg tablet Take 1 tablet by mouth twice daily as needed (tachycardia, palpitations). - pramipexole (MIRAPEX) 0.125 mg tablet Take 1 tablet by mouth daily at bedtime. - MAGNESIUM ORAL Take 1 tablet by mouth once daily. - Estradiol (VAGIFEM) 10 mcg vaginal tablet Use 10 mcg vaginally three times a week. - lisinopril (ZESTRIL, PRINIVIL) 10 mg tablet Take 1 tablet by mouth once daily. As needed for BLOOD PRESSURE >140/90 - vitamin b complex capsule Take 1 capsule by mouth once daily. - Lactobacillus acidophilus (PROBIOTIC ORAL) Take 1 capsule by mouth once daily. 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] 08/18/2005 AGRANULOCYTOSIS [288.0] 10/20/2005 Iron deficiency anemia [D50.9] 02/19/2006 Vitamin D deficiency [E55.9] 01/03/2011 Enlarged uterus [N85.2] 07/09/2012 Uterine mass [N85.8] 07/09/2012 Abnormal uterine bleeding [N93.9] 07/09/2012 Pain in joint, shoulder region [M25.519] 10/03/2013 Disorders of bursae and tendons in shoulder reg*10/03/2013 Situational insomnia [F51.09] 09/30/2016 Situational anxiety [F41.8] 09/30/2016 Hyperlipidemia, mixed [E78.2] 05/06/2017 Well adult exam [Z00.00] 05/17/2018 Dyslipidemia [E78.5] 11/15/2018 Leucopenia [D72.819] 11/15/2018 Overweight (BMI 25.0-29.9) (more content not included)... Normal [facility] CNOVon 02-08-2024 CNOV Office Visit (FAMPWS) DOREEN BETANCUR ([id number]) 1960 F Date Time Provider Department 02/08/24 12:20 PM [facility] During your visit today, we recorded the following information about you: Temperature Pulse Respiration Blood pressure 97.6 degrees 80/minute 16/minute 138/86 Weight 73.5 kg Ham Martinez, 02/09/2024 7:15 AM Signed CC: Doreen Jeffrey Gypsy is a 64 year old female who presents to the office for follow up HPI: Off and on feeling of being lightheaded and dizzy, has been occurring for 2-3 weeks now. Does live in an old farmhouse. Has been sleeping in the camper and has been outside more. They has water in their basement at this time. No recent URI symptoms. No fevers or chills. Worse in the AM. Only lasts up to 15 minutes then seems to go away on its own. Sometimes associated with nauseated feeling. No recent falls or head or neck injuries. Mood, is going to be starting EMDR likely soon. Is seeing therapist. Chronic anxiety which is usually made worse when her daughter Becky is struggling with something as well. Vitamin d deficiency, taking supplement Struggling to lose the weight that she gained during her breast cancer treatment. Still is trying to be physically active regularly PAST MEDICAL HISTORY Diagnosis Date Abnormality of ascending aorta 05/2023 borderline dilation 3.8 cm Anxiety Malignant neoplasm of breast (female), unspecified site 05/27/2005 right breast Vitamin D deficiency PAST SURGICAL HISTORY Procedure Laterality Date BREAST RECONSTRUCTION Right DELIVERY ONLY times four COLONOSCOPY FLX DX W/COLLJ SPEC WHEN PFRMD 12/11/2014 Repeat 2024 DILATION AND CURETTAGE DXAND/THER NONOBSTETRIC LAPAROSCOPY W/RMVL ADNEXAL STRUCTURES 07/05/2013 Laprascopic BSO h/o breast ca LIG/TRNSXJ FLP TUBE ABDL/VAG APPR UNI/BI 1998(?) MAST MODF RAD W/AX LYMPH NOD W/WO PECT/VICKY MIN Right 10/11/2019 Dr. Arceo, [facility] PAST SURGICAL HISTORY OF 06/17/2005 lumpectomy and removal of lymph nodes PAST SURGICAL HISTORY OF 2018 Laser surgery vaginal Current Outpatient Medications Medication Sig meclizine (ANTIVERT) 12.5 mg tab Take 1 tablet by mouth every 6 hours as needed (dizziness). letrozole (FEMARA) 2.5 mg tablet Take 1 tablet by mouth once daily. DULoxetine (CYMBALTA) 60 mg capsule Take 1 capsule by mouth once daily. levothyroxine (LEVOXYL) 75 mcg tablet Take 1 tablet by mouth once daily. Take daily in the morning before eating, Take on empty stomach. For Thyroid sertraline (ZOLOFT) 50 mg tablet Take 1.5 tablets by mouth once daily. benzonatate (TESSALON PERLE) 100 mg capsule Take 2 capsules by mouth three times a day as needed. busPIRone (BUSPAR) 7.5 mg tablet Take 1 tablet by mouth three times a day as needed. triamcinolone acetonide (KENALOG) 0.5 % cream Apply 1 application to affected area two times a day. For rash/itching. Apply sparingly. Avoid face/skin fold. ezetimibe (ZETIA) 10 mg tablet Take 1 tablet by mouth once daily. At supper or bedtime clonazePAM (KLONOPIN) 0.5 mg tablet Take 1 tablet by mouth twice daily as needed for anxiety for up to 30 days. cyclobenzaprine (FLEXERIL) 10 mg tablet Take 1 tablet by mouth every 8 hours as needed for muscle spasm or pain (FOR PAIN OR MUSCLE SPASM). cholecalciferol (VITAMIN D3) 5,000 unit tab Take 5,000 Units by mouth once daily. metoprolol tartrate, short acting, (LOPRESSOR) 25 mg tablet Take 1 tablet by mouth twice daily as needed (tachycardia, palpitations). pramipexole (MIRAPEX) 0.125 mg tablet Take 1 tablet by mouth daily at bedtime. MAGNESIUM ORAL Take 1 tablet by mouth once daily. Estradiol (VAGIFEM) 10 mcg vaginal tablet Use 10 mcg vaginally three times a week. lisinopril (ZESTRIL, PRINIVIL) 10 mg tablet Take 1 tablet by mouth once daily. As needed for BLOOD PRESSURE >140/90 vitamin b complex capsule Take 1 capsule by mouth once daily. Lactobacillus acidophilus (PROBIOTIC ORAL) Take 1 capsule by mouth once daily. No current facility-administere d medications for this visit. ALLERGIES Allergen Reactions Penicillins Intolerance Unknown reaction as a child Dextromethorphan Mental Status Change anxiety Macrobid [Nitrofura* Hot, cold, achy Phenylephrine Intolerance anxiety Prednisone Other: See Comments Heart palpitations Adhesive Tape (Kassie* Intolerance Erythema after ribbon tape Social History Tobacco Use Smoking status: Never Smokeless tobacco: Never Vaping Use Vaping Use: Never used Substance Use Topics Alcohol use: Yes Comment: seldom Drug use: No ROS: See HPI PE: BP 138/86 Pulse 80 Temp (Src) 97.6 (Right Tympanic) Resp 16 Wt 162 lb (73.5kg) LMP 08/10/2012 Gen: AANDOX3, NAD, non-toxic appearing HEENT: PERRLA, EOMs intact b/l, nares without drainage, pharynx without erythema, exudate, lesions, or draina (more content not included)... Normal [facility] Urinalysis complete panel (U )on 02-08-2024 [place]ACTERIA UL 3883.5 uL High Negative [facility] Comment on above: Order Comment: Speci men Type: URINE SPECIMENOrdering Facility: [facility] Address: [address] [place] [address] Performed By: #### 2 4356-8 ####[facility] [id number] [place] [address] [place] Bilirubin Ql (U) Negative Normal Negative [facility] Comment on above: Order Comment: Speci men Type: URINE SPECIMENOrdering Facility: [facility] Address: [address] [place] [address] Performed By: #### 2 4356-8 ####[facility] [id number] [place] [address] [place] CALCIUM OXALATE CRYSTALS (UA) Moderate Abnormal None Seen [facility] Comment on above: Order Comment: Speci men Type: URINE SPECIMENOrdering Facility: [facility] Address: [address] [id number] Performed By: #### 2 4356-8 ####[facility] [id number] [place] [address] [place] Clarity (Unsp spec) Cloudy Abnormal Clear [facility] Comment on above: Order Comment: Speci men Type: URINE SPECIMENOrdering Facility: [facility] Address: [address] [place] [address] Performed By: #### 2 4356-8 ####[facility] [id number] [place] [address] [place] Color (U) Dark Yellow Abnormal Yellow [facility] Comment on above: Order Comment: Speci men Type: URINE SPECIMENOrdering Facility: [facility] Address: [address] [place] [address] Performed By: #### 2 4356-8 ####[facility] [id number] [place] [address] [place] Epithelial cells LM.HPF (Urine sed) [#/Area] None Seen Normal [facility] Comment on above: Order Comment: Speci men Type: URINE SPECIMENOrdering Facility: [facility] Address: [address] [place] [address] Performed By: #### 2 4356-8 ####[facility] [id number] [place] [address] [place] Glucose Test strip (U) [Mass/Vol] Negative Normal Negative [facility] Comment on above: Order Comment: Speci men Type: URINE SPECIMENOrdering Facility: [facility] Address: [address] [place] [address] Performed By: #### 2 4356-8 ####[facility] [id number] [place] [address] [place] Hemoglobin Ql (U) 2+ Abnormal Negative [facility] Comment on above: Order Comment: Speci men Type: URINE SPECIMENOrdering Facility: [facility] Address: [address] [place] [address] Performed By: #### 2 4356-8 ####[facility] [id number] [place] [address] [place] Hyaline casts (Urine sed) [#/Area] 0 /[LPF] Normal 0 /LPF [facility] Comment on above: Order Comment: Speci men Type: URINE SPECIMENOrdering Facility: [facility] Address: [address] [place] [address] Performed By: #### 2 4356-8 ####[facility] [id number] [place] [address] [place] Ketones Ql (U) Negative Normal Negative [facility] Comment on above: Order Comment: Speci men Type: URINE SPECIMENOrdering Facility: [facility] Address: [address] [place] [address] Performed By: #### 2 4356-8 ####[facility] [id number] [place] [address] [place] Leukocyte esterase Test strip Ql (U) Trace Abnormal Negative [facility] Comment on above: Order Comment: Speci men Type: URINE SPECIMENOrdering Facility: [facility] Address: [address] [place], [place] [id number] Performed By: #### 2 4356-8 ####[facility] [id number] [place] [address] [place] Nitrite Ql (U) Negative Normal Negative [facility] Comment on above: Order Comment: Speci men Type: URINE SPECIMENOrdering Facility: [facility] Address: [address] [place] [address] Performed By: #### 2 4356-8 ####[facility] [id number] [place] [address] [place] pH (U) 5.5 [pH] Normal <8.5 [facility] Comment on above: Order Comment: Speci men Type: URINE SPECIMENOrdering Facility: [facility] Address: [address] [place] [address] Performed By: #### 2 4356-8 ####[facility] [id number] [place] [address] [place] Protein (U) [Mass/Vol] Negative Normal Negative [facility] Comment on above: Order Comment: Speci men Type: URINE SPECIMENOrdering Facility: [facility] Address: [address] [place] [address] Performed By: #### 2 4356-8 ####[facility] [id number] [place] [address] [place] RBC LM.HPF (Urine sed) [#/Area] 6-10 /HPF Abnormal 0-2 /HPF [facility] Comment on above: Order Comment: Speci men Type: URINE SPECIMENOrdering Facility: [facility] Address: [address] [place] [address] Performed By: #### 2 4356-8 ####[facility] [id number] [place] [address] [place] Specific gravity (U) [Rel density] 1.026 Normal 1.005-1.030 [facility] Comment on above: Order Comment: Speci men Type: URINE SPECIMENOrdering Facility: [facility] Address: [address] [place] [address] Performed By: #### 2 4356-8 ####[facility] [id number] [place] [address] [place] Urobilinogen Ql (U) 0.2 EU/dL Normal 0.2-1.0 EU/dL [facility] Comment on above: Order Comment: Speci men Type: URINE SPECIMENOrdering Facility: [facility] Address: [address] [place] [address] Performed By: #### 2 4356-8 ####[facility] [id number] [place] [address] [place] WBC LM.HPF (Urine sed) [#/Area] 0-5 /HPF Normal 0-5 /HPF [facility] Comment on above: Order Comment: Speci men Type: URINE SPECIMENOrdering Facility: [facility] Address: [address] [place] [address] Performed By: #### 2 4356-8 ####[facility] [id number] [address] [place] EXERCISE STRESS ECG (WITHOUT IMAGING)on 12-07-2023 Stress Citizen Participation Specialist Report: Exercise Stress ECG (without Imaging) [facility] Date of service: 12/07/2023 10:45:06 AM Supervising physician: Tiana Ward MD PATIENT: Name: MRS. DOREEN BETANCUR Age: 63 years Gender: F The supervising physician was in the department and immediately available. Final Stress ECG Report: Exercise Stress ECG (without Imaging) [facility] Date of service: 12/07/2023 10:45:06 AM Ordering physician: HAM MARTINEZ web communications specialist: Ronna Evans Green Marketing Specialist: Jody Solorzano Interpreting physician: Tiana Ward MD Patient name: MRS. DOREEN BETANCUR Age: 63 years Gender: F Indication: Shortness of breath Stress ECG Conclusion: Conclusion: Normal with exception due to low heart rate recovery Stress ECG Summary: The patient's resting heart rate was 88 bpm and blood pressure was 154/88 mmHg. The patient exercised according to the Blayne protocol. The estimated end-exercise MET level achieved using the FRIEND equation was 7.6, which is within the 75th to 90th percentile for age and sex. The estimated end-exercise MET level achieved using the previous ACSM equation was 9.1. The test was terminated due to end of protocol and the total exercise time was 8 minutes and 0 seconds. Other symptoms during the test included leg fatigue and SOB. The maximum heart rate was 166 bpm, which is 105% of the predicted heart rate for age. Peak blood pressure was 194/90 mmHg. The double product [place] [address]. Medications: Last Used FEMARA CYMBALTA LEVOTHYROXINE ZOLOFT BUSPAR ZETIA KLONOPIN METOPROLOL MIRAPEX MAGNESIUM LISINOPRIL Resting ECG: Normal Sinus Rhythm Symptoms at rest: No symptoms Exercise Protocol: Blayne Stress Exercise Table: +-----+ +- -------+ +- --+---+---+----+---- + Stage Speed (MPH) Grade(%) Time (min) HR SYS BRYCE RPE METS +-----+ +- -------+ +- --+---+---+----+---- + 1 1.7 10.0 3.0 136 170 96 12.0 4.2 +-----+ +- -------+ +- --+---+---+----+---- + 2 2.5 12.0 6.0 155 186 84 14.0 6.1 +-----+ +- -------+ +- --+---+---+----+---- + +-----+ +- --------+ + ---+---+---+----+--- -+ Speed (MPH) Grade (%) Time (min) HR SYS BRYCE RPE METS +-----+ +- --------+ + ---+---+---+----+--- -+ Final 3.4 14.0 8.00 166 194 90 15.0 7.6 +-----+ +- --------+ + ---+---+---+----+--- -+ Recovery Table: +------+ +- --+---+---+ Stage Time (min) HR SYS BRYCE +------+ +- --+---+---+ 1 1.0 157 200 86 +------+ +- --+---+---+ 2 2.0 134 184 90 +------+ +- --+---+---+ 3 3.0 125 168 86 +------+ +- --+---+---+ 4 5.0 112 150 82 +------+ +- --+---+---+ Stress Observations: Resting HR: 88 bpm Peak HR: 166 bpm (105% MPHR) Resting BP: 154 / 88 mmHg Peak BP: 194 / 90 mmHg Total Exercise Time: 8 minutes 0 seconds METS achieved: 10.10 Chronotropic response index (CRI): 1.11 Heart rate recovery (HRR): 9 bpm Rate Pressure Product (RPP): 58950 Mcmahan Treadmill Score: 8.0 Stress Exercise Observations: Reason for test termination: end of protocol, Symptoms during test: Other symptoms during the test included leg fatigue and SOB, Heart rate response: Normal CRI (>0.8 Not on B [place]) and Abnormal HRR (9-12 or 13-[address]/EC), Blood pressure response: Normal BP response, ST segment and T wave changes: No ST changes, Mcmahan Treadmill Score: Normal Mcmahan Treadmill Score (>=5) and Arrhythmias: No arrhythmias IMPORTANT NOTE REGARDING ESTIMATED MET VALUES: Effective 05/13/2020, the reference equation for determining estimated MET values for [facility] stress tests changed. Comparison of test results before and after that date may show a change in estimated MET values for peak/max exercise despite a test duration that is similar in length. The validity of the new FRIEND equation for exercise METS is endorsed by the [employer]. Santos P, Gustavo LA, Rubia R, Saud J, Haley J. New Generalized Equation for Predicting Maximal Oxygen Uptake (from the Fitness Registry and the Importance of Exercise National Database). The [place] Journal of Cardiology. 2017;120(4):688-692) . Final See Link below for Image [facility] EXERCISE STRESS ECG (WITHOUT IMAGING) Stress Citizen Participation Specialist Report: Exercise Stress ECG (without Imaging) [facility] Date of service: 12/07/2023 10:45:06 AM Supervising physician: Tiana Ward MD PATIENT: Name: MRS. DOREEN BETANCUR Age: 63 years Gender: F The supervising physician was in the department and immediately available. Final Stress ECG Report: Exercise Stress ECG (without Imaging) [facility] Date of service: 12/07/2023 10:45:06 AM Ordering physician: HAM MARTINEZ web communications specialist: Ronna Evans Green Marketing Specialist: Jody Solorzano Interpreting physician: Tiana Ward MD Patient name: MRS. DOREEN BETANCUR Age: 63 years Gender: F Indication: Shortness of breath Stress ECG Conclusion: Conclusion: Normal with exception due to low heart rate recovery Stress ECG Summary: The patient's resting heart rate was 88 bpm and blood pressure was 154/88 mmHg. The patient exercised according to the Blayne protocol. The estimated end-exercise MET level achieved using the FRIEND equation was 7.6, which is within the 75th to 90th percentile for age and sex. The estimated end-exercise MET level achieved using the previous ACSM equation was 9.1. The test was terminated due to end of protocol and the total exercise time was 8 minutes and 0 seconds. Other symptoms during the test included leg fatigue and SOB. The maximum heart rate was 166 bpm, which is 105% of the predicted heart rate for age. Peak blood pressure was 194/90 mmHg. The double product achieved was [address]. Medications: Last Used FEMARA CYMBALTA LEVOTHYROXINE ZOLOFT BUSPAR ZETIA KLONOPIN METOPROLOL MIRAPEX MAGNESIUM LISINOPRIL Resting ECG: Normal Sinus Rhythm Symptoms at rest: No symptoms Exercise Protocol: Blayne Stress Exercise Table: +-----+ +- -------+ +- --+---+---+----+---- + Stage Speed (MPH) Grade(%) Time (min) HR SYS BRYCE RPE METS +-----+ +- -------+ +- --+---+---+----+---- + 1 1.7 10.0 3.0 136 170 96 12.0 4.2 +-----+ +- -------+ +- --+---+---+----+---- + 2 2.5 12.0 6.0 155 186 84 14.0 6.1 +-----+ +- -------+ +- --+---+---+----+---- + +-----+ +- --------+ + ---+---+---+----+--- -+ Speed (MPH) Grade (%) Time (min) HR SYS BRYCE RPE METS +-----+ +- --------+ + ---+---+---+----+--- -+ Final 3.4 14.0 8.00 166 194 90 15.0 7.6 +-----+ +- --------+ + ---+---+---+----+--- -+ Recovery Table: +------+ +- --+---+---+ Stage Time (min) HR SYS BRYCE +------+ +- --+---+---+ 1 1.0 157 200 86 +------+ +- --+---+---+ 2 2.0 134 184 90 +------+ +- --+---+---+ 3 3.0 125 168 86 +------+ +- --+---+---+ 4 5.0 112 150 82 +------+ +- --+---+---+ Stress Observations: Resting HR: 88 bpm Peak HR: 166 bpm (105% MPHR) Resting BP: 154 / 88 mmHg Peak BP: 194 / 90 mmHg Total Exercise Time: 8 minutes 0 seconds METS achieved: 10.10 Chronotropic response index (CRI): 1.11 Heart rate recovery (HRR): 9 bpm Rate Pressure Product (RPP): 03119 Mcmahan Treadmill Score: 8.0 Stress Exercise Observations: Reason for test termination: end of protocol, Symptoms during test: Other symptoms during the test included leg fatigue and SOB, Heart rate response: Normal CRI (>0.8 Not on B [place]) and Abnormal HRR (9-12 or 13-[address]/EC), Blood pressure response: Normal BP response, ST segment and T wave changes: No ST changes, Mcmahan Treadmill Score: Normal Mcmahan Treadmill Score (>=5) and Arrhythmias: No arrhythmias IMPORTANT NOTE REGARDING ESTIMATED MET VALUES: Effective 05/13/2020, the reference equation for determining estimated MET values for [facility] stress tests changed. Comparison of test results before and after that date may show a change in estimated MET values for peak/max exercise despite a test duration that is similar in length. The validity of the new FRIEND equation for exercise METS is endorsed by the [employer]. Santos P, Gustavo LA, Rubia R, Saud J, Haley J. New Generalized Equation for Predicting Maximal Oxygen Uptake (from the Fitness Registry and the Importance of Exercise National Database). The [place] Journal of Cardiology. 2017;120(4):688-692) . Final [facility] Image : [id number] [id number] See Link below for Image Normal [facility] GYPSYDOREEN Rachele ([id number]) 1960 F Date Time Provider Department 12/04/23 JODY SOLORZANO [facility] During your visit today, we recorded the following information about you: Jody Solorzano RN 12/04/2023 2:13 PM Signed Left message regarding reminder for stress test on Thursday and given instructions including to not take her metoprolol. Allergies As of Date: 12/04/2023 Noted Allergy Reaction PENICILLINS 05/06/2005 5 - Intolerance Comments: Unknown reaction as a child DEXTROMETHORPHAN 09/17/2022 1 - Mental Status Change Comments: anxiety MACROBID (NITROFURANTOIN MONOHYD/*12/23/2006 Comments: Hot, cold, achy PHENYLEPHRINE 09/17/2022 5 - Intolerance Comments: anxiety PREDNISONE 12/26/2020 14 - Other: See Comments Comments: Heart palpitations ADHESIVE TAPE (ROSINS) 07/30/2005 5 - Intolerance Comments: Erythema after ribbon tape Date Reviewed: 11/25/2023 Reviewed by: Jess Lowery LPN - Fully Assessed Prescriptions as of 12/04/2023 - letrozole (FEMARA) 2.5 mg tablet Take 1 tablet by mouth once daily. - DULoxetine (CYMBALTA) 60 mg capsule Take 1 capsule by mouth once daily. - levothyroxine (LEVOXYL) 75 mcg tablet Take 1 tablet by mouth once daily. Take daily in the morning before eating, Take on empty stomach. For Thyroid - sertraline (ZOLOFT) 50 mg tablet Take 1.5 tablets by mouth once daily. - benzonatate (TESSALON PERLE) 100 mg capsule Take 2 capsules by mouth three times a day as needed. - busPIRone (BUSPAR) 7.5 mg tablet Take 1 tablet by mouth three times a day as needed. - triamcinolone acetonide (KENALOG) 0.5 % cream Apply 1 application to affected area two times a day. For rash/itching. Apply sparingly. Avoid face/skin fold. - ezetimibe (ZETIA) 10 mg tablet Take 1 tablet by mouth once daily. At supper or bedtime - clonazePAM (KLONOPIN) 0.5 mg tablet Take 1 tablet by mouth twice daily as needed for anxiety for up to 30 days. - cyclobenzaprine (FLEXERIL) 10 mg tablet Take 1 tablet by mouth every 8 hours as needed for muscle spasm or pain (FOR PAIN OR MUSCLE SPASM). - cholecalciferol (VITAMIN D3) 5,000 unit tab Take 5,000 Units by mouth once daily. - metoprolol tartrate, short acting, (LOPRESSOR) 25 mg tablet Take 1 tablet by mouth twice daily as needed (tachycardia, palpitations). - pramipexole (MIRAPEX) 0.125 mg tablet Take 1 tablet by mouth daily at bedtime. - MAGNESIUM ORAL Take 1 tablet by mouth once daily. - Estradiol (VAGIFEM) 10 mcg vaginal tablet Use 10 mcg vaginally three times a week. - lisinopril (ZESTRIL, PRINIVIL) 10 mg tablet Take 1 tablet by mouth once daily. As needed for BLOOD PRESSURE >140/90 - vitamin b complex capsule Take 1 capsule by mouth once daily. - Lactobacillus acidophilus (PROBIOTIC ORAL) Take 1 capsule by mouth once daily. 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] 08/18/2005 AGRANULOCYTOSIS [288.0] 10/20/2005 Iron deficiency anemia [D50.9] 02/19/2006 Vitamin D deficiency [E55.9] 01/03/2011 Enlarged uterus [N85.2] 07/09/2012 Uterine mass [N85.8] 07/09/2012 Abnormal uterine bleeding [N93.9] 07/09/2012 Pain in joint, shoulder region [M25.519] 10/03/2013 Disorders of bursae and tendons in shoulder reg*10/03/2013 Situational insomnia [F51.09] 09/30/2016 Situational anxiety [F41.8] 09/30/2016 Hyperlipidemia, mixed [E78.2] 05/06/2017 Well adult exam [Z00.00] 05/17/2018 Dyslipidemia [E78.5] 11/15/2018 Leucopenia [D72.819] 11/15/2018 Overweight (BMI 25.0-29.9) [E66.3] 11/15/2018 Effusion of right knee joint [M25.461] 04/19/2019 Acute pain of right knee [M25.561] 04/19/2019 Breast lump on right side at 9 o'clock position*04/19/2019 Elevated blood pressure reading without diagnos*04/19/2019 Post-menopausal [Z78.0] 12/20/2019 Dyspareunia in female [N94.10] 12/20/2019 Onychomycosis [B35.1] 12/20/2019 Right shoulder tendinitis [M77.8] 12/20/2019 Chronic right shoulder pain [M25.511, G89.29] 12/20/2019 Hyperglycemia [R73.9] 09/05/2020 Atypical nevus [D22.9] 12/03/2020 Fatigue [R53.83] 09/03/2021 History of lymph node dissection of right axill*09/03/2021 Multiple joint pain [M25.50] 12/10/2021 Myalgia [M79.10] 12/10/2021 Restless legs [G25.81] 12/10/2021 Borderline abnormal thyroid function test [R94.*03/24/2022 Muscle cramp [R25.2] 03/24/2022 Osteopenia of multiple sites [M85.89] 03/24/2022 URI, acute [J06.9] 06/23/2022 Anxiety and depression [F41.9, F32.A] 09/26/2022 Panic attack [F41.0] 09/26/2022 Palpitations [R00.2] 09/26/2022 Lymphedema of arm [I89.0] 11/14/2022 Arm swelling [M79.89] 11/14/2022 Lamellar nail splitting [L60.3] 11/24/2022 Hypothyroidism, acquired [E03.9] 12/19/2022 Muscle spasm of back [M62.830] 01/20/2023 Vertigo [R42] 08/05/2023 Acute effusi (more content not included)... Normal [facility] XR Knee - bilateral 4 Viewso n 11-28-2023 IMPRESSION: 1. Mild osteoarthrosis of the bilateral knees Credit Front Office Developer: [facility] Transcribe Date/Time: Nov 28 2023 3:45P Dictated by : NORMA OKEEFE MD This examination was interpreted and the report reviewed and electronically signed by: NORMA OKEEFE MD on Nov 28 2023 3:49PM [facility] DIVISION OF RADIOLOGY * * *Final Report* * * DATE OF EXAM: Nov 25 2023 2:39PM WOX [id number] - XR KNEE 4V AP/PA/LAT/MERCH ERWIN / PROCEDURE REASON: multiple diagnoses * * * * Physician Interpretation * * * * KNEE RADIOGRAPHS - BILATERAL HISTORY: Chronic pain of both knees TECHNOLOGIST PROVIDED HISTORY (if applicable): Chronic worsening bilateral knee pain. TECHNIQUE: XR KNEE 4V AP/PA/LAT/MERCH ERWIN COMPARISON: Radiographs 05/03/2010 RESULT: Right knee: There is no acute osseous, articular, or soft tissue abnormality. There is no joint effusion or soft tissue swelling. Mild medial compartment joint space narrowing and small marginal osteophytes Left knee: There is no acute osseous, articular, or soft tissue abnormality. There is no joint effusion or soft tissue swelling. Mild medial compartment joint space narrowing and small marginal osteophytes DIVISION OF RADIOLOGY Provider, [facility] - 11/28/2023 * * *Final Report* * * DATE OF EXAM: Nov 25 2023 2:39PM WOX [id number] - XR KNEE 4V AP/PA/LAT/MERCH ERWIN / PROCEDURE REASON: multiple diagnoses * * * * Physician Interpretation * * * * KNEE RADIOGRAPHS - BILATERAL HISTORY: Chronic pain of both knees TECHNOLOGIST PROVIDED HISTORY (if applicable): Chronic worsening bilateral knee pain. TECHNIQUE: XR KNEE 4V AP/PA/LAT/MERCH ERWIN COMPARISON: Radiographs 05/03/2010 RESULT: Right knee: There is no acute osseous, articular, or soft tissue abnormality. There is no joint effusion or soft tissue swelling. Mild medial compartment joint space narrowing and small marginal osteophytes Left knee: There is no acute osseous, articular, or soft tissue abnormality. There is no joint effusion or soft tissue swelling. Mild medial compartment joint space narrowing and small marginal osteophytes IMPRESSION IMPRESSION: 1. Mild osteoarthrosis of the bilateral knees Credit Front Office Developer: [employer] Transcribe Date/Time: Nov 28 2023 3:45P Dictated by : NORMA OKEEFE MD This examination was interpreted and the report reviewed and electronically signed by: NORMA OKEEFE MD on Nov 28 2023 3:49PM EST [facility] XR Knee - bilateral 4 ViewsO rdered By: [facility] Provider on 11-28-2023 [facility] XR Knee - bilateral 4 Viewso n 11-25-2023 Radiology Study observation (narrative) [facility] KIERRA SCREENING W TOMOon 03-16 [facility] PAP IG HPV APTIMA 16/18,45on 10-24-2022 ADEQ Comment Normal . [facility] Comment on above: Order Comment: Clini viktoria Info: ANNUAL - Non Collection Vial: Thin Prep Vial NEON SIGN INSTALLER Source: CERVICAL Date LMP/Menopause: MENOPAUSE Collection Techniques: BRUSH/SPATULA Specimen Comment: [id number] Specimen Comment: Source.............Cervix Specimen Comment: Other..............Post Menopausal Specimen Comment: No. of containers..01 ThinPrep Vial Result Comment: Sati sfactory for evaluation. Endocervical and/or squamous metaplastic cells (endocervical component) are present. Performed By: #### L 7400.0280 #### [facility] [address] [place], [place], [id number] COMMENT Comment Normal . [facility] Comment on above: Order Comment: Clini viktoria Info: ANNUAL - Non Collection Vial: Thin Prep Vial NEON SIGN INSTALLER Source: CERVICAL Date LMP/Menopause: MENOPAUSE Collection Techniques: BRUSH/SPATULA Specimen Comment: [id number] Specimen Comment: Source.............Cervix Specimen Comment: Other..............Post Menopausal Specimen Comment: No. of containers..01 ThinPrep Vial Result Comment: This liquid based ThinPrep(R) pap test was screened with the use of an image guided system. Performed By: #### L 7400.0280 #### [facility] [address] [place], [place], [address] DIAG Comment Normal . [facility] Comment on above: Order Comment: Clini viktoria Info: ANNUAL - Non Collection Vial: Thin Prep Vial NEON SIGN INSTALLER Source: CERVICAL Date LMP/Menopause: MENOPAUSE Collection Techniques: BRUSH/SPATULA Specimen Comment: [id number] Specimen Comment: Source.............Cervix Specimen Comment: Other..............Post Menopausal Specimen Comment: No. of containers..01 ThinPrep Vial Result Comment: NEGA TIVE FOR INTRAEPITHELIAL LESION OR MALIGNANCY. Performed By: #### L 7400.0280 #### [facility] [address] [place], [address] HPV APTIMA, HR Negative Normal Negative [facility] Comment on above: Order Comment: Clini viktoria Info: ANNUAL - Non Collection Vial: Thin Prep Vial NEON SIGN INSTALLER Source: CERVICAL Date LMP/Menopause: MENOPAUSE Collection Techniques: BRUSH/SPATULA Specimen Comment: [id number] Specimen Comment: Source.............Cervix Specimen Comment: Other..............Post Menopausal Specimen Comment: No. of containers..01 ThinPrep Vial Result Comment: This nucleic acid amplification test detects fourteen high- risk HPV types (16,18,31,33,35,39,45,51,52,56,58,59,66,68) without differentiation. Performed By: #### L 7400.0280 #### [facility] [address] [place], [place], [id number] HPV Aurea Rfx Comment Normal . [facility] Comment on above: Order Comment: Clini viktoria Info: ANNUAL - Non Collection Vial: Thin Prep Vial NEON SIGN INSTALLER Source: CERVICAL Date LMP/Menopause: MENOPAUSE Collection Techniques: BRUSH/SPATULA Specimen Comment: [id number] Specimen Comment: Source.............Cervix Specimen Comment: Other..............Post Menopausal Specimen Comment: No. of containers..01 ThinPrep Vial Result Comment: Crit eria not met, HPV Genotype not performed. Performed at: - [facility] [id number] [employer]: Adrienne Chan MD, Phone: [phone] Performed at: =G - [facility] [address] [id number] [employer]: Adrienne Chan MD, Phone: [phone] Performed By: #### L 7400.0280 #### [facility] [address] [place], [address] PAPSMR Comment Normal . [facility] Comment on above: Order Comment: Clini viktoria Info: ANNUAL - Non Collection Vial: Thin Prep Vial NEON SIGN INSTALLER Source: CERVICAL Date LMP/Menopause: MENOPAUSE Collection Techniques: BRUSH/SPATULA Specimen Comment: [id number] Specimen Comment: Source.............Cervix Specimen Comment: Other..............Post Menopausal Specimen Comment: No. of containers..01 ThinPrep Vial Result Comment: The Pap smear is a screening test designed to aid in the detection of premalignant and malignant conditions of the uterine cervix. It is not a diagnostic procedure and should not be used as the sole means of detecting cervical cancer. Both false-positive and false-negative reports do occur. Performed By: #### L 7400.0280 #### [facility] [address] [place], [address] PERFORM Comment Normal . [facility] Comment on above: Order Comment: Clini viktoria Info: ANNUAL - Non Collection Vial: Thin Prep Vial NEON SIGN INSTALLER Source: CERVICAL Date LMP/Menopause: MENOPAUSE Collection Techniques: BRUSH/SPATULA Specimen Comment: [id number] Specimen Comment: Source.............Cervix Specimen Comment: Other..............Post Menopausal Specimen Comment: No. of containers..01 ThinPrep Vial Result Comment: Lynne Armijo Date Puller (ASCP) Performed By: #### L 7400.0280 #### [facility] [address] [facility]. [place], [place], [address] COMM . Normal . [facility] Comment on above: Order Comment: Clini viktoria Info: ANNUAL - Non Collection Vial: Thin Prep Vial NEON SIGN INSTALLER Source: CERVICAL Date LMP/Menopause: MENOPAUSE Collection Techniques: BRUSH/SPATULA Specimen Comment: [id number] Specimen Comment: Source.............Cervix Specimen Comment: Other..............Post Menopausal Specimen Comment: No. of containers..01 ThinPrep Vial Performed By: #### L 7400.0280 #### [facility] [address] [facility] [place], [place], [address] Cervical or vagninal specime n microscopic examination by cytology stain (reported asOrdered By: Ai Contreras on 10-20-2022 Cytology report Cyto stain Doc (Cvx/Vag) Comment . [facility] Comment on above: The Pap smear is a s creening test designed to aid in thedetection of premalignant and malignant conditions of theuterine cervix. It is not a diagnostic procedure andshould not be used as the sole means of detecting cervicalcancer. Both false-positive and false-negative reports dooccur. Detection in cervical specim en of any of human papilloma virus (HPV) 16, 18, 31, 33,Ordered By: Ai Contreras on 10-20-2022 HPV 16+18+31+33+35+39+45+5 1+52+56+58+59+66+68 DNA Probe+sig amp Ql (Cvx) Negative Negative [facility] Comment on above: This nucleic acid am plification test detects fourteen high- risk HPV types (16,18,31,33,35,39,45,51,52,56,58,59,66,68)without differentiation. Laboratory - CytologyOrdered By: Ai Contreras on 10-20-2022 Loading Checker Cyto stain Nom (Cvx/Vag) [ID] Comment . [facility] Comment on above: Rosario Armijo, Cyto technologist (ASCP) Laboratory - Miscellaneous t estsOrdered By: iA Contreras on 10-20-2022 Service comment (Unsp spec) [Interp] Comment . [facility] Comment on above: This liquid based Th inPrep(R) pap test was screened withthe use of an image guided system. Service comment (Unsp spec) [Interp] . . [facility] Liquid-based cerv Pap + CT/G C by ETHEL w reflex to high-risk HPV for ASCUSOrdered By: Ai Contreras on 10-20-2022 Cytology report Cyto stain.thin prep Doc (Cvx/Vag) Comment . [facility] Comment on above: Criteria not met, HP V Genotype not performed.Performed at: WB - [facility] [address] [id number] Director: Adrienne Chan MD, Phone: [phone] at: =G - [facility] [address] [id number] Director: Adrienne Chan MD, Phone: [phone] No Panel InformationOrdered By: Ai Contreras on 10-20-2022 Pathology report final diagnosis Narrative Comment . [facility] Comment on above: NEGATIVE FOR INTRAEP ITHELIAL LESION OR MALIGNANCY. Associate Manager Affiliate Marketing Office Visit Reporton 10-20-2022 Associate Manager Affiliate Marketing Office Visit Report [facility] [address] [place] [address] OFFICE VISIT Date of Service: 10/20/22 MR#: [id number] Acct: [id number] Name: GYPSYDOREEN JERRY Rep #: [id number] : 1960 Provider: SRIDEVI lund Age/Sex: 62/F [place] [facility] [place]: Signed Intake Vital Signs 10/20/22 10:14 10/20/22 10:25 Height 5 ft 4 in 5 ft 4 in Weight: 175 lb 8 oz BMI 30.1 BP 136/82 H Intake Visit Reasons: Annual (NEON SIGN INSTALLER) Chief Complaint: Annual Flight Radio Officer Required: No Is patient in pain?: No Allergies dextromethorphan Allergy (Mild, Verified 10/20/22 10:20) Other phenylephrine Allergy (Mild, Verified 10/20/22 10:20) Other adhesive Allergy (Verified 10/20/22 10:14) Rash Penicillins Allergy (Verified 10/20/22 10:14) Unknown prednisolone Adverse Reaction (Intermediate, Verified 10/20/22 10:14) heart racing nitrofurantoin [From Macrobid] Adverse Reaction (Verified 10/20/22 10:14) Other nitrofurantoin macrocrystalline [From Macrobid] Adverse Reaction (Verified 10/20/22 10:14) Other Medications lactobacillus combination no.8 3 billion cell capsule (Adult Probiotic) 3,000 mmu cells PO DAILY supplement 12/21/18 [History Confirmed 10/20/22] clonazepam 0.5 mg tablet (Klonopin) 0.5 mg PO DAILY PRN Anxiety 08/31/19 [History Confirmed 10/20/22] lisinopril 10 mg tablet 10 mg PO DAILY 06/11/20 [History Confirmed 10/20/22] tacrolimus 0.1 % in vehicle base no.238 topical cream 30 g TP BID 06/11/20 [History Confirmed 10/20/22] cholecalciferol (vitamin D3) 50 mcg (2,000 unit) capsule 50 mcg PO DAILY 09/04/20 [History Confirmed 10/20/22] zinc 50 mg tablet 50 mg PO DAILY 09/04/20 [History Confirmed 10/20/22] estradiol 10 mcg vaginal tablet 10 mcg vaginal 2XW #30 tabs 10/20/22 [Rx Confirmed 10/20/22] ezetimibe 10 mg tablet (Zetia) 10 mg PO DAILY 10/20/22 [History Confirmed 10/20/22] letrozole 2.5 mg tablet (Femara) 2.5 mg PO DAILY 10/20/22 [History Confirmed 10/20/22] metoprolol succinate 25 mg tablet,extended release 24 hr 25 mg PO DAILY 10/20/22 [History Confirmed 10/20/22] pramipexole 0.125 mg tablet (Mirapex) 0.125 mg PO DAILY 10/20/22 [History Confirmed 10/20/22] sertraline 50 mg tablet (Zoloft) 200 mg PO DAILY 10/20/22 [History Confirmed 10/20/22] Is last menstrual period known: No Post menopausal: Yes Patient : No : No PFSH Medical History (Updated 10/20/22 @ 11:29 by Ai Contreras 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, 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) Allergies Anemia Anxiety Breast cancer, right Depression High blood pressure High cholesterol History of chemotherapy History of radiation therapy Late effect of radiation Ptosis of breast 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 UTI (urinary tract infection) Surgical History (Updated 10/20/22 @ 10:27 by Latia Mcfarland) History of tubal ligation S/P breast reconstruction S/P S/P dilation and curettage S/P oophorectomy Status post right breast lumpectomy Status post right mastectomy ( 10/11/19) VAGINOPLASTY Family History Sister Melanoma Father Myocardial infarction Asthma Mother Anemia Aunt Breast cancer Social History Smoking Status: Never smoker alcohol intake: current details: occasionally substance use type: does not use caffeine: No what type of physical activity do you participate in: none seatbelt use: always do you feel safe at home: Yes additional social history: [employer] and [employer] 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 Date Name GA/Weeks Outcome Route Bth Weight Infant Gen Labor Lgth Anesthesia Del Locatn Provider FOB Unknown Rachid-1983 Unknown [place]-1986 Unknown Julian-1988 Unknown Becky-1992 HPI Encounter for routine gynecological examination Details: DOREEN BETANCUR is a 62 year old who presents for annual exam. Weight gain noted. Noting more swelling of right arm. Struggling with panic attacks, PCP managing meds, ap[facility] at counseling center. Last PAP: 2018 History of abnormal PAP: no Last mammogram: follows with [facility] History of abnormal mammogram: right breast cancer Colon cancer screening: Jabour appt scheduled. Other preventative health care screenings: Juan Female Reproductive History Questions: metorrhagia: No, sexually active: Yes, dyspareunia: Yes and PCB: No Menopausal Treatment: Yes Vaginal Estrogen ROS Const Constitutional: Denies fatigue, weight gain or weight loss Cardio Card: Denies chest pain Resp (more content not included)... Normal [facility] Radiation Oncology Visiton 0 08-04-2022 Radiation Oncology Visit [facility] [address] [place] [address] OFFICE VISIT Date of Service: 08/04/22 1011 MR#: [id number] Acct: [id number] Name: DOREEN BETANCUR Rep #: [id number] : 1960 From: Jimmy Cota DO Age/Sex: 62/F Location: [facility] [place] Status: Signed Intake Vital Signs 08/04/22 10:16 08/04/22 10:19 Height 5 ft 4 in 5 ft 4 in Weight: 172 lb 3 oz BMI 29.5 BP 157/92 H Blood Pressure Location Lt brachial Position Sitting Respiration 16 Pulse 86 Pulse Source Monitor Temp 97.0 F L Temperature Source Temporal Artery Pulse Oximetry (%) 98 Oxygen Delivery Method room air Intake Visit Reasons: 4 month f/u breast Is patient in pain?: No Allergies adhesive Allergy (Verified 08/04/22 10:15) Rash Penicillins Allergy (Verified 08/04/22 10:15) Unknown prednisolone Adverse Reaction (Intermediate, Verified 08/04/22 10:15) heart racing nitrofurantoin [From Macrobid] Adverse Reaction (Verified 08/04/22 10:15) Other nitrofurantoin macrocrystalline [From Macrobid] Adverse Reaction (Verified 08/04/22 10:15) Other Medications lactobacillus combination no.8 3 billion cell capsule (Adult Probiotic) 3,000 mmu cells PO DAILY supplement 12/21/18 [History Confirmed 08/04/22] clonazepam 0.5 mg tablet (Klonopin) 0.5 mg PO DAILY PRN Anxiety 08/31/19 [History Confirmed 08/04/22] clobetasol 0.05 % topical ointment topical BID 06/11/20 [History Confirmed 08/04/22] gabapentin 300 mg capsule 300 mg PO QHS 06/11/20 [History Confirmed 08/04/22] lisinopril 10 mg tablet 10 mg PO DAILY 06/11/20 [History Confirmed 08/04/22] tacrolimus 0.1 % in vehicle base no.238 topical cream 30 g TP BID 06/11/20 [History Confirmed 08/04/22] cholecalciferol (vitamin D3) 50 mcg (2,000 unit) capsule 50 mcg PO DAILY 09/04/20 [History Confirmed 08/04/22] vitamin B comp and C no.3 15 mg-10 mg-50 mg-5 mg-300 mg capsule (B Complex Plus Vitamin C) 1 cap PO DAILY 09/04/20 [History Confirmed 08/04/22] zinc 50 mg tablet 50 mg PO DAILY 09/04/20 [History Confirmed 08/04/22] sertraline 50 mg tablet (Zoloft) 150 mg PO DAILY 10/28/21 [History Confirmed 08/04/22] [facility] Medical History Allergies Anemia Anxiety Breast cancer, right Depression High blood pressure High cholesterol History of chemotherapy History of radiation therapy Late effect of radiation Ptosis of breast 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 UTI (urinary tract infection) Home Medications lactobacillus combination no.8 3 billion cell capsule (Adult Probiotic) 3,000 mmu cells PO DAILY supplement 12/21/18 [History Last Taken Unknown] clonazepam 0.5 mg tablet (Klonopin) 0.5 mg PO DAILY PRN Anxiety 08/31/19 [History Last Taken 09/28/19] clobetasol 0.05 % topical ointment topical BID 06/11/20 [History Last Taken Unknown] gabapentin 300 mg capsule 300 mg PO QHS 06/11/20 [History Last Taken Unknown] lisinopril 10 mg tablet 10 mg PO DAILY 06/11/20 [History Last Taken Unknown] tacrolimus 0.1 % in vehicle base no.238 topical cream 30 g TP BID 06/11/20 [History Last Taken Unknown] cholecalciferol (vitamin D3) 50 mcg (2,000 unit) capsule 50 mcg PO DAILY 09/04/20 [History Last Taken Unknown] vitamin B comp and C no.3 15 mg-10 mg-50 mg-5 mg-300 mg capsule (B Complex Plus Vitamin C) 1 cap PO DAILY 09/04/20 [History Last Taken Unknown] zinc 50 mg tablet 50 mg PO DAILY 09/04/20 [History Last Taken Unknown] Flucelvax Quad 60 mcg (15 mcg x 4)/0.5 mL intramuscular susp (flu vac qs (6 ms up) CD) 60 mcg (0.5 mL) IM ONCE #0.5 mL 07/01/21 [Clinic Last Taken Unknown] sertraline 50 mg tablet (Zoloft) 150 mg PO DAILY 10/28/21 [History Last Taken Unknown] Allergy/AdvReac Type Severity Reaction Status Date / Time adhesive Allergy Rash Verified 08/04/22 10:15 Penicillins Allergy Unknown Verified 08/04/22 10:15 prednisolone AdvReac Intermediate heart Verified 08/04/22 10:15 racing nitrofurantoin AdvReac Other Verified 08/04/22 10:15 [From Macrobid] nitrofurantoin AdvReac Other Verified 08/04/22 10:15 macrocrystalline [From Macrobid] Family History Sister Melanoma Father Myocardial infarction Asthma Mother Anemia Aunt Breast cancer Surgical History History of tubal ligation S/P S/P dilation and curettage S/P oophorectomy Status post right breast lumpectomy Status post right mastectomy ( 10/11/19) VAGINOPLASTY Social History Smoking Status: Never smoker alcohol intake: current details: occasionally substance use type: does not use caffeine: No what type of physical activity do you participate in: n (more content not included)... Normal [facility] DXA-AXIAL SKELETONon 022 [facility] CONTINUOUS CARDIAC MONITORIN G STRIPon 05-27-2022 [facility] CONTINUOUS CARDIAC MONITORIN G STRIPOrdered By: Unassigned Pacs on 05-27-2022 [facility] Work Phone: SURG PATH REQUESTon 05-27-20 22 Case Report Normal [facility] Comment on above: Result Comment: Surg ical Pathology Report Case: [id number] Authorizing Provider: Jose Francisco Coughlin MD Collected: 05/27/2022 09:32 AM [facility] Received: 05/27/2022 12:36 PM Pathologist: Marilyn Ness MD, PhD Specimens: A) - SURG PATH, left breast reduction, short stitch superior, long stitch lateral, double stitch anterior B) - SURG PATH, Right chest wall lesion Performed By: #### S URGP #### [facility] (DEFAULT) [address] [place] [address] Clinical History Preop Diagnosis: Personal history of malignant neoplasm of breast. Medical History: Breast cancer. History of chemotherapy. Soft tissue radionecrosis. History of radiation exposure. History of radiation therapy. [facility] Comment on above: Performed By: #### S URGP #### [facility] (DEFAULT) [address] [place] [address] Gross Description Normal [facility] Comment on above: Result Comment: The specimens are received in two properly labeled containers with the patient's name and accession number. A. The specimen is designated left breast reduction, short stitch superior, long stitch lateral, double stitch anterior and consists of a 26.0 gram oriented portion of adipose tissue measuring 7.6 (medial to lateral) x 5.0 (superior to inferior) x 1.6 cm (anterior to posterior). The specimen is inked as follows: superior = blue, inferior = green, medial = orange, lateral = yellow, anterior = purple, posterior = black. The specimen is serially sectioned from medial to lateral to reveal unremarkable fibrofatty cut surfaces consisting of approximately 99% adipose tissue and 1% fibrous tissue. RS 8 Summary of Cassettes: A1-A8, technical services representative sections B. The specimen is designated right chest wall lesion and consists of a 0.9 x 0.2 x 0.2 cm unoriented, elliptical skin excision. The skin surface is remarkable for a 0.5 x 0.4 cm pale hoffmann-malloy papule which is extending up to 0.1 cm from the skin surface. The specimen is bisected and entirely submitted. TE 1 Lab Use Only: JobID [id number] Grosser for this case was: Asiya Fischer For Immediate Release to Patient's MyChart? Yes Performed By: #### S URGP #### [facility] (DEFAULT) [address] [address] Microscopic Description A microscopic examination was performed. Normal [facility] Comment on above: Performed By: #### S URGP #### [facility] (DEFAULT) [address] [address] Pathologic Diagnosis Normal [facility] Comment on above: Result Comment: A. L eft breast, reduction: Benign breast parenchyma. B. Skin, right chest wall lesion, excision: Intradermal melanocytic nevus, completely excised. Performed By: #### S URGP #### [facility] (DEFAULT) [address] [address] CHEM 6 (LYTES, BUN CREA)on 1 Anion gap [Moles/Vol] 9 mmol/L Normal 7-17 [facility] Comment on above: Performed By: #### C HM6 #### [facility] (DEFAULT) [address] [address] Chloride [Moles/Vol] 104 mmol/L Normal 98-108 [facility] Comment on above: Performed By: #### C HM6 #### [facility] (DEFAULT) [address] [address] CO2 [Moles/Vol] 30 mmol/L Normal 21-31 [facility] Comment on above: Performed By: #### C HM6 #### [facility] (DEFAULT) [address] [address] Creatinine [Mass/Vol] 0.82 mg/dL Normal 0.50-1.20 [facility] Comment on above: Performed By: #### C HM6 #### [facility] (DEFAULT) [address] [place] [address] GFR/1.73 sq M.predicted among non-blacks MDRD (S/P/Bld) [Vol rate/Area] 82 mL/min/{1.73_m2} Normal >=60 [facility] Comment on above: Result Comment: Repo rted eGFR is based on the CKD-EPI 2020 equation using creatinine, age, and sex. Performed By: #### C HM6 #### [facility] (DEFAULT) [address] [place] [address] Potassium [Moles/Vol] 4.1 mmol/L Normal 3.5-5.0 [facility] Comment on above: Performed By: #### C HM6 #### [facility] (DEFAULT) [address] [place] [address] Sodium [Moles/Vol] 139 mmol/L Normal 135-145 [facility] Comment on above: Performed By: #### C HM6 #### [facility] (DEFAULT) [address] [place] [address] Urea nitrogen [Mass/Vol] 23 mg/dL Normal 7-25 [facility] Comment on above: Performed By: #### C HM6 #### [facility] (DEFAULT) [address] [place] [address] Urea nitrogen/Creatinine [Mass ratio] 28 mg/mg Normal [facility] Comment on above: Performed By: #### C HM6 #### [facility] (DEFAULT) [address] [place] [address] HEMOGLOBIN & HEMATOCRITon Hematocrit (Bld) [Volume fraction] 42.0 % Normal 34.9-44.3 [facility] Comment on above: Performed By: #### H H #### [facility] (DEFAULT) [address] [place] [address] Hemoglobin (Bld) [Mass/Vol] 13.9 g/dL Normal 11.4-15.2 [facility] Comment on above: Performed By: #### H H #### [facility] ([facility]) [address] [place] [address] Radiation Oncology Visiton 0 03-25-2022 Radiation Oncology Visit [facility] [address] [place] [address] OFFICE VISIT Date of Service: 03/25/22 1114 MR#: [id number] Acct: [id number] Name: DOREEN BETANCUR Rep #: [id number] : 1960 From: Jimmy Cipriano SINGLETON Age/Sex: 62/F Location: [facility] [place] Status: Signed Intake Vital Signs 03/25/22 11:23 03/25/22 11:23 Height 5 ft 4 in 5 ft 4 in Weight: 167 lb 8 oz BMI 28.7 BP 120/82 H Blood Pressure Location Lt brachial Position Sitting Respiration 16 Pulse 80 Pulse Source Monitor Temp 97.0 F L Temperature Source Temporal Artery Pulse Oximetry (%) 97 Oxygen Delivery Method room air Intake Visit Reasons: followup breast Allergies adhesive Allergy (Verified 03/25/22 11:20) Rash Penicillins Allergy (Verified 03/25/22 11:20) Unknown prednisolone Adverse Reaction (Intermediate, Verified 03/25/22 11:20) heart racing nitrofurantoin [From Macrobid] Adverse Reaction (Verified 03/25/22 11:20) Other nitrofurantoin macrocrystalline [From Macrobid] Adverse Reaction (Verified 03/25/22 11:20) Other Medications lactobacillus combination no.8 3 billion cell capsule (Adult Probiotic) 3,000 mmu cells PO DAILY supplement 12/21/18 [History Confirmed 03/25/22] clonazepam 0.5 mg tablet (Klonopin) 0.5 mg PO DAILY PRN Anxiety 08/31/19 [History Confirmed 03/25/22] clobetasol 0.05 % topical ointment topical BID 06/11/20 [History Confirmed 03/25/22] gabapentin 300 mg capsule 300 mg PO QHS 06/11/20 [History Confirmed 03/25/22] lisinopril 10 mg tablet 10 mg PO DAILY 06/11/20 [History Confirmed 03/25/22] tacrolimus 0.1 % in vehicle base no.238 topical cream 30 g TP BID 06/11/20 [History Confirmed 03/25/22] cholecalciferol (vitamin D3) 50 mcg (2,000 unit) capsule 50 mcg PO DAILY 09/04/20 [History Confirmed 03/25/22] vitamin B comp and C no.3 15 mg-10 mg-50 mg-5 mg-300 mg capsule (B Complex Plus Vitamin C) 1 cap PO DAILY 09/04/20 [History Confirmed 03/25/22] zinc 50 mg tablet 50 mg PO DAILY 09/04/20 [History Confirmed 03/25/22] sertraline 50 mg tablet (Zoloft) 150 mg PO DAILY 10/28/21 [History Confirmed 03/25/22] letrozole 2.5 mg tablet 2.5 mg PO DAILY 03/25/22 [History Confirmed 03/25/22] [facility] Medical History Allergies Anemia Anxiety Breast cancer, right Depression High blood pressure High cholesterol History of chemotherapy History of radiation therapy Late effect of radiation Ptosis of breast 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 UTI (urinary tract infection) Home Medications lactobacillus combination no.8 3 billion cell capsule (Adult Probiotic) 3,000 mmu cells PO DAILY supplement 12/21/18 [History Last Taken Unknown] clonazepam 0.5 mg tablet (Klonopin) 0.5 mg PO DAILY PRN Anxiety 08/31/19 [History Last Taken 09/28/19] clobetasol 0.05 % topical ointment topical BID 06/11/20 [History Last Taken Unknown] gabapentin 300 mg capsule 300 mg PO QHS 06/11/20 [History Last Taken Unknown] lisinopril 10 mg tablet 10 mg PO DAILY 06/11/20 [History Last Taken Unknown] tacrolimus 0.1 % in vehicle base no.238 topical cream 30 g TP BID 06/11/20 [History Last Taken Unknown] cholecalciferol (vitamin D3) 50 mcg (2,000 unit) capsule 50 mcg PO DAILY 09/04/20 [History Last Taken Unknown] vitamin B comp and C no.3 15 mg-10 mg-50 mg-5 mg-300 mg capsule (B Complex Plus Vitamin C) 1 cap PO DAILY 09/04/20 [History Last Taken Unknown] zinc 50 mg tablet 50 mg PO DAILY 09/04/20 [History Last Taken Unknown] Flucelvax Quad [id number] 60 mcg (15 mcg x 4)/0.5 mL intramuscular susp (flu vac qs (6 ms up) CD) 60 mcg (0.5 mL) IM ONCE #0.5 mL 07/01/21 [Clinic Last Taken Unknown] sertraline 50 mg tablet (Zoloft) 150 mg PO DAILY 10/28/21 [History Last Taken Unknown] letrozole 2.5 mg tablet 2.5 mg PO DAILY 03/25/22 [History Last Taken Unknown] Allergy/AdvReac Type Severity Reaction Status Date / Time adhesive Allergy Rash Verified 03/25/22 11:20 Penicillins Allergy Unknown Verified 03/25/22 11:20 prednisolone AdvReac Intermediate heart Verified 03/25/22 11:20 racing nitrofurantoin AdvReac Other Verified 03/25/22 11:20 [From Macrobid] nitrofurantoin AdvReac Other Verified 03/25/22 11:20 macrocrystalline [From Macrobid] Family History Sister Melanoma Father Myocardial infarction Asthma Mother Anemia Aunt Breast cancer Surgical History History of tubal ligation S/P S/P dilation and curettage S/P oophorectomy Status post right breast lumpectomy Status post right mastectomy ( 10/11/19) VAGINOPLASTY Social History Smoking Status: Never smoker alcohol intake: current details (more content not included)... Normal [facility] VAGINITIS DNA PROBESon 09-30 DNA Probe Delia Species Negative Normal Negative [facility] Comment on above: Performed By: #### T GCM #### [facility] (DEFAULT) [address] [address] DNA Probe Gardnerella Negative Normal Negative [facility] Comment on above: Performed By: #### T GCM #### [facility] (DEFAULT) [address] [address] DNA Probe Trichomonas Negative Normal Negative [facility] Comment on above: Performed By: #### T GCM #### [facility] (DEFAULT) [address] [address] ACID FAST CULTURE, TISSUEon 09-17-2021 Bacteria identified Cx Nom (Unsp spec) NO GROWTH DAY 42 OF 42 Normal [facility] Comment on above: Performed By: #### A FBT #### [facility] (DEFAULT) [address] [address] Fluorochrome Stain No acid Fast Bacillus Seen Normal [facility] Comment on above: Performed By: #### A FBT #### [facility] (DEFAULT) [address] [address] ANAEROBE CULTUREon 2 Bacteria identified Cx Nom (Unsp spec) No anaerobic growth Normal [facility] Comment on above: Order Comment: Colle ct fluids or tissues in a sterile container. If collecting swabs, must be collected in a Port-A-Cul tube. Performed By: #### A TULIO #### [facility] (DEFAULT) [address] [address] BACTERIAL CULTURE AND DIRECT SMEAR, LESION, TISSUE, DEVICEon 09-17-2021 Clindamycin [Susceptibility] >=4 Resistant [facility] Comment on above: Performed By: #### G EN #### [facility] (DEFAULT) [address] [address] Oxacillin [Susceptibility] by Minimum inhibitory concentration (KEKE) <=0.25 Invalid Interpretation Code [facility] Comment on above: Performed By: #### G EN #### [facility] (DEFAULT) [address] [address] Trimethoprim+Sulfameth oxazole [Susceptibility] <=10 Invalid Interpretation Code [facility] Comment on above: Performed By: #### G EN #### [facility] (DEFAULT) [address] [address] Vancomycin [Susceptibility] 1 ug/mL Invalid Interpretation Code [facility] Comment on above: Performed By: #### G EN #### [facility] (DEFAULT) [address] [address] FUNGUS CULTUREon 09-17-2021 Bacteria identified Cx Nom (Unsp spec) NO GROWTH DAY 28 OF 28 Normal [facility] Comment on above: Performed By: #### F UN #### [facility] (DEFAULT) [address] [address] CBC,PLATELETSon 09-13-2021 Hematocrit (Bld) [Volume fraction] 31.0 % Low 34.9-44.3 [facility] Comment on above: Performed By: #### H EMOGC #### [facility] (DEFAULT) [address] [address] Hemoglobin (Bld) [Mass/Vol] 9.7 g/dL Low 11.4-15.2 [facility] Comment on above: Performed By: #### H EMOGC #### [facility] (DEFAULT) [address] [address] MCV (RBC) [Entitic vol] 91.7 fL Normal 79.6-97.7 [facility] Comment on above: Performed By: #### H EMOGC #### [facility] (DEFAULT) [address] [address] Mean Cell Hgb 28.7 pg Normal 25.9-33.9 [facility] Comment on above: Performed By: #### H EMOGC #### [facility] (DEFAULT) [address] [address] Mean Cell Hgb Conc 31.3 g/dL Low 31.4-35.9 [facility] Comment on above: Performed By: #### H EMOGC #### [facility] (DEFAULT) [address] [address] Platelet mean volume (Bld) [Entitic vol] 8.9 fL Normal 8.5-12.2 [facility] Comment on above: Performed By: #### H EMOGC #### [facility] (DEFAULT) [address] [place] [address] Platelets (Bld) [#/Vol] 287 10*3/uL Normal 150-393 [facility] Comment on above: Performed By: #### H EMOGC #### [facility] (DEFAULT) [address] [place] [address] RBC (Bld) [#/Vol] 3.38 10*6/uL Low 3.91-5.04 [facility] Comment on above: Performed By: #### H EMOGC #### [facility] (DEFAULT) [address] [place] [address] RBC Distribution 13.2 % Normal 10.8-14.9 [facility] Comment on above: Performed By: #### H EMOGC #### [facility] (DEFAULT) [address] [place] [address] WBC (Bld) [#/Vol] 7.06 10*3/uL Normal 3.99-11.19 [facility] Comment on above: Performed By: #### H EMOGC #### [facility] (DEFAULT) [address] [place] [address] US ABDOMEN LIMITEDon 022 US ABDOMEN LIMITED EXAM: US ABDOMEN LIMITED, 09/13/2021 13:40 PM CLINICAL INDICATIONS: rule out post-op hematoma Post-op JAY JAY flap with increasing drain output. Rule out hematoma to abdominal wall.; T14.8XXA:Hematoma COMPARISON: CT abdomen and pelvis study dated August 08, 2021 TECHNIQUE: Multiple longitudinal and transverse real-time grayscale images of the abdominal wall in the area of interest were obtained. Color flow doppler was also utilized. FINDINGS: There is a large ovoid hypoechoic heterogeneous collection along the incision site measuring 22.9 cm in length with maximum anteroposterior dimensions of 3.7 cm. Internal echoes and few septations are identified within this collection. This most likely represents a complex collection/hematoma. Some edema is seen in the surrounding subcutaneous tissues without increased vascularity IMPRESSION: 1. Large heterogeneous ovoid hypoechoic collection in the ventral wall within the area of interest likely represents a complex collection/hematoma Normal [facility] CR Elbow 3+ Views Lefton CR Elbow 3+ Views Left Patient Name: DOREEN BETANCUR Diagnostic Radiology ACCESSION EXAM DATE/TIME PROCEDURE ORDERING PROVIDER [id number] 03/21/2021 09:45 EDT CR Elbow 3+ Views Left MD VERO, PHONG [place] CPT code 08722 Reason For Exam (CR Elbow 3+ Views Left) left elbow pain Report Clinical history: left elbow pain COMPARISON: None. TECHNIQUE: Left elbow, three views FINDINGS: No focal soft tissue abnormalities seen. There is a minimally displaced proximal radial head fracture extending to the articular surface. No other fractures or dislocations are identified. There are minimal degenerative changes. IMPRESSION: Minimally displaced proximal left radial head fracture extending to the articular surface with slight articular surface step-off. Report Dictated on Final Dictating Physician: MD MACKAY JAMES Signed Date and Time: 03/25/2021 9:34 am Signed by: MD MACKAY JAMES Transcribed Date and Time: 03/25/2021 9:35 Normal [facility] No Panel Informationon 02-05 Radiology Study observation (narrative) [facility] XR Elbow - left AP and Later al and obliqueon 02-05-2021 IMPRESSION: Slightly depressed intra-articular fracture of the left radial head with slightly distracted lateral fragment. Credit Front Office Developer: PSCB Transcribe Date/Time: Feb 05 2021 12:34P Dictated by : KARINA DICKENS MD This examination was interpreted and the report reviewed and electronically signed by: KARINA DICKENS MD on Feb 05 2021 12:36PM [facility] DIVISION OF RADIOLOGY * * *Final Report* * * DATE OF EXAM: Feb 05 2021 12:12PM WOX 5324 - XR ELBOW 3V AP/LAT/OTHER LT / PROCEDURE REASON: Forearm injuries, left, initial encounter * * * * Physician Interpretation * * * * EXAMINATION: XR ELBOW 3V AP/LAT/OTHER LT HISTORY: Radial head fracture. TECHNIQUE: XR ELBOW 3V AP/LAT/OTHER LT Laterality: LEFT Number of different views (projections): 3 M: XB_1 COMPARISON: Comparison is made to prior forearm study obtained earlier the same day RESULT: 3 views of the left elbow demonstrate a slightly impacted intra-articular fracture of the left radial head with mild separation of a lateral fracture fragment measuring 2 mm. Radial neck appears intact. Joint spaces are preserved. There is a fat pad sign consistent with joint fluid/hemarthrosis. DIVISION OF RADIOLOGY Provider, [facility] [place] - 02/05/2021 * * *Final Report* * * DATE OF EXAM: Feb 05 2021 12:12PM WOX 5324 - XR ELBOW 3V AP/LAT/OTHER LT / PROCEDURE REASON: Forearm injuries, left, initial encounter * * * * Physician Interpretation * * * * EXAMINATION: XR ELBOW 3V AP/LAT/OTHER LT HISTORY: Radial head fracture. TECHNIQUE: XR ELBOW 3V AP/LAT/OTHER LT Laterality: LEFT Number of different views (projections): 3 M: XB_1 COMPARISON: Comparison is made to prior forearm study obtained earlier the same day RESULT: 3 views of the left elbow demonstrate a slightly impacted intra-articular fracture of the left radial head with mild separation of a lateral fracture fragment measuring 2 mm. Radial neck appears intact. Joint spaces are preserved. There is a fat pad sign consistent with joint fluid/hemarthrosis. IMPRESSION IMPRESSION: Slightly depressed intra-articular fracture of the left radial head with slightly distracted lateral fragment. Credit Front Office Developer: ANA Transcribe Date/Time: Feb 05 2021 12:34P Dictated by : KARINA DICKENS MD This examination was interpreted and the report reviewed and electronically signed by: KARINA DICKENS MD on Feb 05 2021 12:36PM EST [facility] XR Elbow - left AP and Later al and obliqueOrdered By: [facility] Provider on 02-05-2021 [facility] XR Radius and Ulna - left AP and LateralOrdered By: [facility] Provider on 02-05-2021 Interpretation and review of laboratory results Abnormal [facility] Radiology Result ACTIONABLE Abnormal [facility] Comment on above: This report contains an incidental or actionable finding. This is a new finding that is separate from the reason your provider ordered the imaging test. Because of this incidental or actionable finding, you may need another imaging test to evaluate it. Please contact your provider for the next steps. [facility] XR Radius and Ulna - left AP and Lateralon 02-05-2021 IMPRESSION: Radial head fracture. Dedicated views of the left elbow are recommended. ACTIONABLE RESULT: FOLLOW-UP Acuity: Actionable Findings: Musculoskeletal/Rheu matologic System Routing Code: MSK_1 Recommendation: Unlisted Recommendation (see report) Time Frame: Additional evaluation as described in the impression COMMUNICATION: Results will be communicated with the ordering provider via [employer] staff message or phone message by [facility] within 2 business days of report finalization. Algorithms for management of incidental imaging findings can be found on the [facility] Intranet Sharepoint site at: [email or web address] idental%20Findi ngs%20at%20Imaging/F [email or web address] Credit Front Office Developer: [email or web address] Transcribe Date/Time: Feb 05 2021 11:37A Dictated by : KARINA DICKENS MD This examination was interpreted and the report reviewed and electronically signed by: KARINA DICKENS MD on Feb 05 2021 11:41AM [facility] DIVISION OF RADIOLOGY * * *Final Report* * * DATE OF EXAM: Feb 05 2021 11:29AM WOX 5341 - XR FOREARM 2V AP/LAT LT / PROCEDURE REASON: Forearm injuries, left, initial encounter * * * * Physician Interpretation * * * * EXAMINATION: XR FOREARM 2V AP/LAT LT HISTORY: Pt. states she slipped and fell 1 day ago. Pain mid Lt forearm. Pain radiates into Lt elbow. Forearm injuries, left, initial encounter . TECHNIQUE: XR FOREARM 2V AP/LAT LT Laterality: LEFT Number of different views (projections): 2 M: XB_1 COMPARISON: There are no prior relevant examinations available for comparison within the [facility] Imaging Archives. RESULT: 2 views of the left forearm demonstrate slightly impacted intra-articular fracture through the radial head with a slightly distracted lateral fracture fragment.There is no jr dislocation and joint spaces are preserved. DIVISION OF RADIOLOGY Provider, [facility] [place] - 02/05/2021 * * *Final Report* * * DATE OF EXAM: Feb 05 2021 11:29AM WOX 5341 - XR FOREARM 2V AP/LAT LT / PROCEDURE REASON: Forearm injuries, left, initial encounter * * * * Physician Interpretation * * * * EXAMINATION: XR FOREARM 2V AP/LAT LT HISTORY: Pt. states she slipped and fell 1 day ago. Pain mid Lt forearm. Pain radiates into Lt elbow. Forearm injuries, left, initial encounter . TECHNIQUE: XR FOREARM 2V AP/LAT LT Laterality: LEFT Number of different views (projections): 2 M: XB_1 COMPARISON: There are no prior relevant examinations available for comparison within the [facility] Imaging Archives. RESULT: 2 views of the left forearm demonstrate slightly impacted intra-articular fracture through the radial head with a slightly distracted lateral fracture fragment.There is no jr dislocation and joint spaces are preserved. IMPRESSION IMPRESSION: Radial head fracture. Dedicated views of the left elbow are recommended. ACTIONABLE RESULT: FOLLOW-UP Acuity: Actionable Findings: Musculoskeletal/Rheu matologic System Routing Code: MSK_1 Recommendation: Unlisted Recommendation (see report) Time Frame: Additional evaluation as described in the impression COMMUNICATION: Results will be communicated with the ordering provider via [employer] staff message or phone message by [facility] within 2 business days of report finalization. Algorithms for management of incidental imaging findings can be found on the [facility] Intranet Sharepoint site at: [email or web address] idental%20Findi ngs%20at%20Imaging/F orms/AllItems.aspx Credit Front Office Developer: ANA Transcribe Date/Time: Feb 05 2021 11:37A Dictated by : KARINA DICKENS MD This examination was interpreted and the report reviewed and electronically signed by: KARINA DICKENS MD on Feb 05 2021 11:41AM EST [facility] Vital Signs Date Time Vital Sign Value Performing Clinician Facility 01-01-2025 12:02-0400 Body mass index (BMI) [Ratio] 29.09 kg/m2 Matthew Maki [employer] Work Phone: [facility] 01-01-2025 12:02-0400 Body temperature 98.4 [degF] Matthew Maki [employer]ACHINE TENDER Work Phone: [facility] 01-01-2025 12:02-0400 Body weight 74.5 kg Matthew Maki [employer] MACHINE TENDER Work Phone: [facility] 01-01-2025 12:02-0400 Heart rate 85 /min Matthew Maki [employer] BU[employer]DER[employer]ING MACHINE TENDER Work Phone: [facility] 01-01-2025 12:02-0400 Respiratory rate 19 /min Matthew Maki [employer] BU[employer]DER[employer]ICING MACHINE TENDER Work Phone: [facility] 01-01-2025 12:02-0400 SaO2% (BldA) [Mass fraction] 98 % Matthew Maki [employer] BU[employer]DER[employer]ING MACHINE TENDER Work Phone: [facility] 11-21-2024 11:05-0400 Body mass index (BMI) [Ratio] 28.94 kg/m2 Becca Magana [employer]DER[employer]ING MACHINE TENDER Work Phone: [facility] 11-21-2024 11:05-0400 Body temperature 97.59 [degF] Becca Magana [employer]ENER[employer] BUILDER[employer]ICING MACHINE TENDER Work Phone: [facility] 11-21-2024 11:05-0400 Body weight 74.1 kg Becca Magana [employer]ENER[employer] BU[employer]DER[employer]ICING MACHINE TENDER Work Phone: [facility] 11-21-2024 11:05-0400 Diastolic blood pressure 92 mm[Hg] Becca Magana [employer] BU[employer]DER[employer]ICING MACHINE TENDER Work Phone: [facility] 11-21-2024 11:05-0400 Heart rate 87 /min Becca Magana [employer] BU[employer]DER[employer]ICING MACHINE TENDER Work Phone: [facility] 11-21-2024 11:05-0400 SaO2% (BldA) [Mass fraction] 99 % Becca Magana [employer]ENER[employer] BUILDER[employer]SLICING MACHINE TENDER Work Phone: [facility] 11-21-2024 11:05-0400 Systolic blood pressure 137 mm[Hg] Becca Magana [employer]ENER[employer] BUILDER[employer]SLICING MACHINE TENDER Work Phone: [facility] 10-03-2024 09:40-0400 Body mass index (BMI) [Ratio] 29.58 kg/m2 Ham Martinez DO Work Phone: [facility] 10-03-2024 09:40-0400 Body temperature 97 [degF] Ham Martinez DO Work Phone: [facility] 10-03-2024 09:40-0400 Body weight 75.75 kg Ham Martinez DO Work Phone: [facility] 10-03-2024 09:40-0400 Diastolic blood pressure 80 mm[Hg] Ham Martinez DO Work Phone: [facility] 10-03-2024 09:40-0400 Heart rate 80 /min Ham Martinez DO Work Phone: [facility] 10-03-2024 09:40-0400 Respiratory rate 16 /min Ham Martinez DO Work Phone: [facility] 10-03-2024 09:40-0400 Systolic blood pressure 130 mm[Hg] Ham Martinez DO Work Phone: [facility] 05-25-2024 10:41-0400 Body mass index (BMI) [Ratio] 28.59 kg/m2 Helm Magana [employer]ENER[employer] BUILDER[employer]SLICING MACHINE TENDER Work Phone: [facility] 05-25-2024 10:41-0400 Body temperature 97.81 [degF] Becca Magana [employer]ENER[employer] BUILDER.SLICING MACHINE TENDER Work Phone: [facility] 05-25-2024 10:41-0400 Body weight 73.2 kg Becca Magana [employer]ENERY BUILDER.SLICING MACHINE TENDER Work Phone: [facility] 05-25-2024 10:41-0400 Diastolic blood pressure 89 mm[Hg] Becca Magana SCENER[employer] BUILDER.SLICING MACHINE TENDER Work Phone: [facility] 05-25-2024 10:41-0400 Heart rate 90 /min Helmriver Magana SCENERY BUILDER.SLICING MACHINE TENDER Work Phone: [facility] 05-25-2024 10:41-0400 SaO2% (BldA) [Mass fraction] 97 % Becca Magana SCENERY BUILDER.SLICING MACHINE TENDER Work Phone: [facility] 05-25-2024 10:41-0400 Systolic blood pressure 132 mm[Hg] Helmriver Magana [employer] BUILDER[employer]SLICING MACHINE TENDER Work Phone: [facility] 03-30-2024 10:39-0400 Body mass index (BMI) [Ratio] 28.7 kg/m2 Ham Martinez DO Work Phone: [facility] 03-30-2024 10:39-0400 Body temperature 98.01 [degF] Ham Martinez DO Work Phone: [facility] 03-30-2024 10:39-0400 Body weight 73.48 kg Ham Martinez DO Work Phone: [facility] 03-30-2024 10:39-0400 Diastolic blood pressure 80 mm[Hg] Ham Martinez DO Work Phone: [facility] 03-30-2024 10:39-0400 Heart rate 80 /min Ham Martinez DO Work Phone: [facility] 03-30-2024 10:39-0400 Respiratory rate 16 /min Ham Martinez DO Work Phone: [facility] 03-30-2024 10:39-0400 Systolic blood pressure 136 mm[Hg] Ham Martinez DO Work Phone: [facility] 02-08-2024 12:40-0400 Body mass index (BMI) [Ratio] 28.7 kg/m2 Ham Martinez DO Work Phone: [facility] 02-08-2024 12:40-0400 Body temperature 97.59 [degF] Ham Martinez DO Work Phone: [facility] 02-08-2024 12:40-0400 Body weight 73.48 kg Ham Martinez DO Work Phone: [facility] 02-08-2024 12:40-0400 Diastolic blood pressure 86 mm[Hg] Ham Martinez DO Work Phone: [facility] 02-08-2024 12:40-0400 Heart rate 80 /min Ham Martinez DO Work Phone: [facility] 02-08-2024 12:40-0400 Respiratory rate 16 /min Ham Martinez DO Work Phone: [facility] 02-08-2024 12:40-0400 Systolic blood pressure 138 mm[Hg] Ham Martinez DO Work Phone: [facility] 11-25-2023 13:18-0400 Body mass index (BMI) [Ratio] 29.05 kg/m2 Ham Martinez DO Work Phone: [facility] 11-25-2023 13:18-0400 Body temperature 97.81 [degF] Ham Martinez DO Work Phone: [facility] 11-25-2023 13:18-0400 Body weight 74.39 kg Ham Martinez DO Work Phone: [facility] 11-25-2023 13:18-0400 Diastolic blood pressure 80 mm[Hg] Ham Martinez DO Work Phone: [facility] 11-25-2023 13:18-0400 Heart rate 80 /min Ham Martinez DO Work Phone: [facility] 11-25-2023 13:18-0400 Respiratory rate 12 /min Ham Martinez DO Work Phone: [facility] 11-25-2023 13:18-0400 Systolic blood pressure 120 mm[Hg] Ham Martinez DO Work Phone: [facility] 11-25-2023 10:09-0400 Body mass index (BMI) [Ratio] 28.95 kg/m2 Becca Magana APRN.SLICING MACHINE TENDER Work Phone: [facility] 11-25-2023 10:090400 Body temperature 98.6 [degF] Helm Magana SCENERY BUILDER.SLICING MACHINE TENDER Work Phone: [facility] 11-25-2023 10:090400 Body weight 74.12 kg Becca Magana SCENERY BUILDER.SLICING MACHINE TENDER Work Phone: [facility] 11-25-2023 10:090400 Diastolic blood pressure 96 mm[Hg] Becca Magana SCENERY BUILDER.SLICING MACHINE TENDER Work Phone: [facility] 11-25-2023 10:090400 Heart rate 90 /min Helm Magana SCENERY BUILDER.SLICING MACHINE TENDER Work Phone: [facility] 11-25-2023 10:090400 Systolic blood pressure 158 mm[Hg] Helm Magana SCENERY BUILDER.SLICING MACHINE TENDER Work Phone: [facility] 05-27-2023 10:120400 Body height 162 cm Helm Magana SCENERY BUILDER.SLICING MACHINE TENDER Work Phone: [facility] 05-27-2023 10:120400 Body temperature 97.59 [degF] Helm Magana SCENERY BUILDER.SLICING MACHINE TENDER Work Phone: [facility] 05-27-2023 10:120400 Body weight 73.48 kg Becca Magana SCENERY BUILDER.SLICING MACHINE TENDER Work Phone: [facility] 05-27-2023 10:12-0400 Diastolic blood pressure 97 mm[Hg] Helm Magana SCENERY BUILDER.SLICING MACHINE TENDER Work Phone: [facility] 05-27-2023 10:12-0400 Heart rate 110 /min Helm Magana SCENERY BUILDER.SLICING MACHINE TENDER Work Phone: [facility] 05-27-2023 10:12-0400 SaO2% (BldA) [Mass fraction] 98 % Becca Magana SCENERY BUILDER.SLICING MACHINE TENDER Work Phone: [facility] 05-27-2023 10:12-0400 Systolic blood pressure 142 mm[Hg] Helm Magana SCENERY BUILDER.SLICING MACHINE TENDER Work Phone: [facility] 02-20-2023 15:24-0400 Body temperature 98.1 [degF] Ham Martinez DO Work Phone: [facility] 02-20-2023 15:24-0400 Body weight 77.11 kg Ham Martinez DO Work Phone: [facility] 02-20-2023 15:24-0400 Diastolic blood pressure 86 mm[Hg] Ham Martinez DO Work Phone: [facility] 02-20-2023 15:24-0400 Heart rate 80 /min Ham Martinez DO Work Phone: [facility] 02-20-2023 15:24-0400 Respiratory rate 16 /min Ham Martinez DO Work Phone: [facility] 02-20-2023 15:24-0400 Systolic blood pressure 138 mm[Hg] Ham Martinez DO Work Phone: [facility] 01-20-2023 13:25-0400 Body temperature 97 [degF] Ham Martinez DO Work Phone: [facility] 01-20-2023 13:25-0400 Body weight 77.11 kg Ham Martinez DO Work Phone: [facility] 01-20-2023 13:25-0400 Diastolic blood pressure 84 mm[Hg] Ham Martinez DO Work Phone: [facility] 01-20-2023 13:25-0400 Heart rate 80 /min Ham Martinez DO Work Phone: [facility] 01-20-2023 13:25-0400 Respiratory rate 16 /min Ham Martinez DO Work Phone: [facility] 01-20-2023 13:25-0400 Systolic blood pressure 130 mm[Hg] Ham Martinez DO Work Phone: [facility] 11-24-2022 10:58-0400 Diastolic blood pressure 82 mm[Hg] Ham Martinez DO Work Phone: [facility] 11-24-2022 10:58-0400 Systolic blood pressure 120 mm[Hg] Ham Martinez DO Work Phone: [facility] 11-24-2022 10:14-0400 Body temperature 97 [degF] Ham Martinez DO Work Phone: [facility] 11-24-2022 10:14-0400 Body weight 78.02 kg Ham Martinez DO Work Phone: [facility] 11-24-2022 10:14-0400 Heart rate 76 /min Ham Martinez DO Work Phone: [facility] 11-24-2022 10:14-0400 Respiratory rate 16 /min Ham Martinez DO Work Phone: [facility] 11-24-2022 09:03-0400 Body height 163.8 cm Becca Magana SCENERY BUILDER.SLICING MACHINE TENDER Work Phone: [facility] 11-24-2022 09:03-0400 Body temperature 97.5 [degF] Helm Magana SCENERY BUILDER.SLICING MACHINE TENDER Work Phone: [facility] 11-24-2022 09:03-0400 Body weight 78.25 kg Becca Magana SCENERY BUILDER.SLICING MACHINE TENDER Work Phone: [facility] 11-24-2022 09:03-0400 Diastolic blood pressure 95 mm[Hg] Helm Magana SCENERY BUILDER.SLICING MACHINE TENDER Work Phone: [facility] 11-24-2022 09:03-0400 Heart rate 79 /min Becca Magana SCENERY BUILDER.SLICING MACHINE TENDER Work Phone: [facility] 11-24-2022 09:03-0400 Systolic blood pressure 140 mm[Hg] Becca Magana SCENERY BUILDER.SLICING MACHINE TENDER Work Phone: [facility] 10-24-2022 10:17-0400 Body temperature 98.01 [degF] Ham Martinez DO Work Phone: [facility] 10-24-2022 10:17-0400 Body weight 78.93 kg Ham Martinez DO Work Phone: [facility] 10-24-2022 10:17-0400 Diastolic blood pressure 80 mm[Hg] Ham Martinez DO Work Phone: [facility] 10-24-2022 10:17-0400 Heart rate 80 /min Ham Martinez DO Work Phone: [facility] 10-24-2022 10:17-0400 Respiratory rate 16 /min Ham Martinez DO Work Phone: [facility] 10-24-2022 10:17-0400 Systolic blood pressure 134 mm[Hg] Ham Zelayarison DO Work Phone: [facility] 10-20-2022 10:25-0400 Body height 162.[address] Ham Martinez Work Phone: [facility] 10-20-2022 10:14-0400 Body mass index (BMI) [Ratio] 30.1 kg/m2 Dr. Ham Martinez Work Phone: [facility] 10-20-2022 10:14-0400 Body weight 79.[address] Ham Martinez Work Phone: 8(841)032-6464[address] [place] [address] 10-20-2022 10:14-0400 Diastolic blood pressure 82 mm[Hg] Dr. Ham Martinez Work Phone: [facility] 10-20-2022 10:14-0400 Systolic blood pressure 136 mm[Hg] Dr. Ham Martinez Work Phone: [facility] 09-26-2022 10:35-0500 Body temperature 97.3 [degF] Ham Martinez DO Work Phone: [facility] 09-26-2022 10:35-0500 Body weight 78.47 kg Ham Zelayarison DO Work Phone: [facility] 09-26-2022 10:35-0500 Diastolic blood pressure 60 mm[Hg] Ham Martinez DO Work Phone: [facility] 09-26-2022 10:35-0500 Heart rate 80 /min Ham Martinez DO Work Phone: [facility] 09-26-2022 10:35-0500 Respiratory rate 20 /min Ham Martinez DO Work Phone: [facility] 09-26-2022 10:35-0500 Systolic blood pressure 100 mm[Hg] Ham Martinez DO Work Phone: [facility] 09-17-2022 15:31-0500 Body temperature 99 [degF] Amparo Athy PA-C Work Phone: [facility] 09-17-2022 15:31-0500 Body weight 79.83 kg Amparo Athy PA-C Work Phone: [facility] 09-17-2022 15:31-0500 Diastolic blood pressure 80 mm[Hg] Amparo Athy PA-C Work Phone: [facility] 09-17-2022 15:31-0500 Heart rate 110 /min Amprao Athy PA-C Work Phone: [facility] 09-17-2022 15:31-0500 Respiratory rate 18 /min Amparo Athy PA-C Work Phone: [facility] 09-17-2022 15:31-0500 SaO2% (BldA) [Mass fraction] 96 % Amparo Athy PA-C Work Phone: [facility] 09-17-2022 15:31-0500 Systolic blood pressure 126 mm[Hg] Amparo Athy PA-C Work Phone: [facility] 09-08-2022 15:40-0500 Body temperature 97.81 [degF] Ham Martinez DO Work Phone: [facility] 09-08-2022 15:40-0500 Body weight 77.11 kg Ham Martinez DO Work Phone: [facility] 09-08-2022 15:40-0500 Diastolic blood pressure 82 mm[Hg] Ham Martinez DO Work Phone: [facility] 09-08-2022 15:40-0500 Heart rate 88 /min Ham Martinez DO Work Phone: [facility] 09-08-2022 15:40-0500 Respiratory rate 20 /min Ham Martinez DO Work Phone: [facility] 09-08-2022 15:40-0500 Systolic blood pressure 130 mm[Hg] Ham Martinez DO Work Phone: [facility] 08-04-2022 10:16-0500 Body mass index (BMI) [Ratio] 29.5 kg/m2 Dr. Ham Martinez Work Phone: 7(452)825-767671 [place] [address] 08-04-2022 10:16-0500 Body temperature 97 [degF] Dr. Ham Martinez Work Phone: 7(130)499-906728 [place] [address] 08-04-2022 10:16-0500 Body weight 78.[address] Ham Martinez Work Phone: 1(325)549-053071 [place] [address] 08-04-2022 10:16-0500 Diastolic blood pressure 92 mm[Hg] Dr. Ham Martinez Work Phone: 4(913)330-268371 [place] [address] 08-04-2022 10:16-0500 Heart rate 86 /min Dr. Ham Martinez Work Phone: 4(388)305-010571 [place] [address] 08-04-2022 10:16-0500 Respiratory rate 16 /min Dr. Ham Martinez Work Phone: 0(706)070-486471 [place] [address] 08-04-2022 10:16-0500 SaO2% (BldA) [Mass fraction] 98 % Dr. Ham Martinez Work Phone: 4(968)704-967571 [place] [address] 08-04-2022 10:16-0500 Systolic blood pressure 157 mm[Hg] Dr. Ham Martinez Work Phone: 5(916)[phone] [place] [address] 06-23-2022 08:50-0500 Body weight 76.66 kg Ham Martinez DO Work Phone: [facility] 06-23-2022 08:50-0500 Diastolic blood pressure 86 mm[Hg] Ham Martinez DO Work Phone: [facility] 06-23-2022 08:50-0500 Heart rate 68 /min Ham Martinez DO Work Phone: [facility] 06-23-2022 08:50-0500 Respiratory rate 16 /min Ham Martinez DO Work Phone: [facility] 06-23-2022 08:50-0500 Systolic blood pressure 132 mm[Hg] Ham Martinez DO Work Phone: [facility] 06-02-2022 10:26-0500 Body temperature 98.4 [degF] Jose Francisco Coughlin MD Work Phone: [facility] 06-02-2022 10:26-0500 Diastolic blood pressure 98 mm[Hg] Jose Francisco Coughlin MD Work Phone: [facility] 06-02-2022 10:26-0500 Heart rate 101 /min Jose Francisco Coughlin MD Work Phone: [facility] 06-02-2022 10:26-0500 Respiratory rate 16 /min Jose Francisco Coughlin MD Work Phone: [facility] 06-02-2022 10:26-0500 SaO2% (BldA) [Mass fraction] 98 % Jose Francisco Coughlin MD Work Phone: [facility] 06-02-2022 10:26-0500 Systolic blood pressure 173 mm[Hg] Jose Francisco Coughlin MD Work Phone: [facility] 05-27-2022 12:50-0400 Diastolic blood pressure 77 mm[Hg] Jose Francisco Coughlin MD Work Phone: [facility] 05-27-2022 12:50-0400 Heart rate 111 /min Jose Francisco Coughlin MD Work Phone: [facility] 05-27-2022 12:50-0400 Respiratory rate 22 /min Jose Francisco Coughlin MD Work Phone: [facility] 05-27-2022 12:50-0400 SaO2% (BldA) [Mass fraction] 98 % Jose Francisco Coughlin MD Work Phone: [facility] 05-27-2022 12:50-0400 Systolic blood pressure 169 mm[Hg] Jose Francisco Coughlin MD Work Phone: [facility] 05-27-2022 12:44-0400 Body temperature 98.2 [degF] Jose Francisco Coughlin MD Work Phone: [facility] 05-27-2022 06:05-0400 Body height 162.6 cm Jose Francisco Coughlin MD Work Phone: [facility] 05-27-2022 06:05-0400 Body mass index (BMI) [Ratio] 28.97 kg/m2 Jose Francisco Coughlin MD Work Phone: [facility] 05-27-2022 06:05-0400 Body weight 76.57 kg Jose Francisco Coughlin MD Work Phone: [facility] 05-23-2022 10:18-0400 Body temperature 98.49 [degF] Becca Magana APRN.SLICING MACHINE TENDER Work Phone: [facility] 05-23-2022 10:18-0400 Body weight 78.47 kg Becca Magana SCENERY BUILDER.SLICING MACHINE TENDER Work Phone: [facility] 05-23-2022 10:18-0400 Diastolic blood pressure 75 mm[Hg] Becca Magana SCENERY BUILDER.SLICING MACHINE TENDER Work Phone: [facility] 05-23-2022 10:18-0400 Heart rate 82 /min Becca Magana SCENERY BUILDER.SLICING MACHINE TENDER Work Phone: [facility] 05-23-2022 10:18-0400 Systolic blood pressure 148 mm[Hg] Becca Magana SCENERY BUILDER.SLICING MACHINE TENDER Work Phone: [facility] 03-21-2022 08:39-0400 Body temperature 97.3 [degF] Ham Martinez DO Work Phone: [facility] 03-21-2022 08:39-0400 Body weight 75.3 kg Ham Martinez DO Work Phone: [facility] 03-21-2022 08:39-0400 Diastolic blood pressure 80 mm[Hg] Ham Martinez DO Work Phone: [facility] 03-21-2022 08:39-0400 Heart rate 80 /min Ham Martinez DO Work Phone: [facility] 03-21-2022 08:39-0400 Respiratory rate 16 /min Ham Martinez DO Work Phone: [facility] 03-21-2022 08:39-0400 Systolic blood pressure 120 mm[Hg] Ham Martinez DO Work Phone: [facility] 02-17-2022 11:12-0400 Body mass index (BMI) [Ratio] 28.6 kg/m2 Jose Francisco Coughlin MD Work Phone: [facility] 02-17-2022 11:12-0400 Body temperature 97.7 [degF] Jose Francisco Coughlin MD Work Phone: [facility] 02-17-2022 11:12-0400 Body weight 75.57 kg Jose Francisco Coughlin MD Work Phone: [facility] 02-17-2022 11:12-0400 Diastolic blood pressure 82 mm[Hg] Jose Francisco Coughlin MD Work Phone: [facility] 02-17-2022 11:12-0400 Heart rate 81 /min Jose Francisco Coughlin MD Work Phone: [facility] 02-17-2022 11:12-0400 Respiratory rate 14 /min Jose Francisco Coughlin MD Work Phone: [facility] 02-17-2022 11:12-0400 SaO2% (BldA) [Mass fraction] 98 % Jose Francisco Coughlin MD Work Phone: [facility] 02-17-2022 11:12-0400 Systolic blood pressure 160 mm[Hg] Jose Francisco Coughlin MD Work Phone: [facility] 12-09-2021 10:48-0400 Body temperature 96.3 [degF] Ham Martinez DO Work Phone: [facility] 12-09-2021 10:48-0400 Body weight 78.47 kg Ham Martinez DO Work Phone: [facility] 12-09-2021 10:48-0400 Diastolic blood pressure 80 mm[Hg] Ham Martinez DO Work Phone: [facility] 12-09-2021 10:48-0400 Heart rate 80 /min Ham Martinez DO Work Phone: [facility] 12-09-2021 10:48-0400 Respiratory rate 16 /min Ham Martinez DO Work Phone: [facility] 12-09-2021 10:48-0400 Systolic blood pressure 130 mm[Hg] Ham Martinez DO Work Phone: [facility] 11-11-2021 15:08-0400 Body temperature 98.71 [degF] Jose Francisco Coughlin MD Work Phone: [facility] 11-11-2021 15:08-0400 Diastolic blood pressure 96 mm[Hg] Jose Francisco Coughlin MD Work Phone: [facility] 11-11-2021 15:08-0400 Heart rate 73 /min Jose Francisco Coughlin MD Work Phone: [facility] 11-11-2021 15:08-0400 Respiratory rate 16 /min Jose Francisco Coughlin MD Work Phone: [facility] 11-11-2021 15:08-0400 SaO2% (BldA) [Mass fraction] 97 % Jose Francisco Coughlin MD Work Phone: [facility] 11-11-2021 15:08-0400 Systolic blood pressure 160 mm[Hg] Jose Francisco Coughlin MD Work Phone: [facility] 10-24-2021 11:12-0400 Body temperature 97.81 [degF] Courtney Morataya APRN.SLICING MACHINE TENDER Work Phone: [facility] 10-24-2021 11:12-0400 Body weight 76.66 kg Courtney Morataya APRN.SLICING MACHINE TENDER Work Phone: [facility] 10-24-2021 11:12-0400 Diastolic blood pressure 82 mm[Hg] Courtney Morataya APRN.SLICING MACHINE TENDER Work Phone: [facility] 10-24-2021 11:12-0400 Heart rate 89 /min Courtney Morataya APRN.SLICING MACHINE TENDER Work Phone: [facility] 10-24-2021 11:12-0400 Respiratory rate 16 /min Courtney Morataya APRN.SLICING MACHINE TENDER Work Phone: [facility] 10-24-2021 11:12-0400 SaO2% (BldA) [Mass fraction] 97 % Courtney Morataya APRN.SLICING MACHINE TENDER Work Phone: [facility] 10-24-2021 11:12-0400 Systolic blood pressure 126 mm[Hg] Courtney Morataya APRN.SLICING MACHINE TENDER Work Phone: [facility] Encounters Encounter Date Encounter Type Care Provider Facility Start: 02-06-2025 End: 02-09-2025 Telephone encounter Ham Martinez DO Work Phone: [facility] Comment on above: Results Start: 02-02-2025 End: 02-03-2025 Follow-up encounter Taisha Bess APRN.SLICING MACHINE TENDER Work Phone: [facility] Start: 02-01-2025 End: 02-01-2025 Patient encounter procedure Ethan Mckeon DO Work Phone: [facility] Comment on above: Traumatic closed non displaced fracture of distal end of left radius, with routine healing, subsequent encounter (Primary Dx) Start: 02-01-2025 End: 02-01-2025 ambulatory HAM L MARTINEZ Facility:[facility] Start: 02-01-2025 End: 02-01-2025 Subsequent hospital visit by physician Brandon [facility] Work Phone: Radiology Comment on above: Injury of left wrist , initial encounter [S69.92XA] Start: 01-31-2025 End: 01-31-2025 Orders Only Ethan Mckeon DO Work Phone: Orthopaedics Comment on above: Injury of left wrist , initial encounter (Primary Dx) Refill Request Start: 01-23-2025 End: 01-24-2025 ambulatory Becca Magana APRN.SLICING MACHINE TENDER Work Phone: Hematology/Oncology Comment on above: Dryness Start: 01-10-2025 End: 01-10-2025 Subsequent hospital visit by physician Brandon [facility] Work Phone: Radiology Comment on above: Wrist injury, left, initial encounter [S69.92XA] Start: 01-10-2025 End: 01-10-2025 ambulatory HAM L MARTINEZ Facility:[facility] Start: 01-10-2025 End: 01-10-2025 Patient encounter procedure Ethan Mckeon DO Work Phone: [facility] Comment on above: Wrist injury, left, initial encounter Start: 01-02-2025 ambulatory HAM L MARTINEZ Facil ity:[facility] Start: 01-02-2025 End: 01-02-2025 Subsequent hospital visit by physician Brandon [facility] Work Phone: Radiology Comment on above: Wrist injury, left, initial encounter [S69.92XA] Start: 01-01-2025 End: 01-01-2025 Office outpatient visit 15 minutes Matthew Maki APRN.SLICING MACHINE TENDER Work Phone: [facility] Comment on above: Wrist injury, left, initial encounter (Primary Dx) Start: 01-01-2025 End: 01-01-2025 ambulatory HAM ZELAYARISON Facility:[facility] Start: 12-21-2024 End: 12-21-2024 Refill Ham Zelayarison DO Work Phone: Family Medicine [facility] Comment on above: Refill Request Start: 12-20-2024 End: 12-21-2024 ambulatory Ham Zelayarison DO Work Phone: [facility] Comment on above: Medicine Start: 11-21-2024 End: 11-21-2024 Patient encounter procedure Beccariver Magana SCENERY BUILDER.SLICING MACHINE TENDER Work Phone: Hematology/Oncology Start: 11-21-2024 End: 11-21-2024 ambulatory Becca Magana SCENERY BUILDER.SLICING MACHINE TENDER Work Phone: Hematology/Oncology Comment on above: Malignant neoplasm o f upper-outer quadrant of right breast in female, estrogen receptor positive (HCC) (Primary Dx); Encounter for screening mammogram for high-risk patient Start: 10-03-2024 End: 10-03-2024 ambulatory HAM ZELAYARISON Facility:[facility] Start: 10-03-2024 End: 10-03-2024 Patient encounter procedure Ham Zelayarison DO Work Phone: [facility] Comment on above: Dysuria (Primary Dx) ; Anxiety and depression; Recurrent UTI (urinary tract infection); Hyperlipidemia, mixed; Hyperglycemia Start: 08-10-2024 End: 08-10-2024 Telephone encounter Ham Zelayarison DO Work Phone: [facility] Start: 08-04-2024 End: 08-04-2024 ambulatory HAM ZELAYARISON Facility:[facility] Start: 08-04-2024 End: 08-04-2024 Subsequent hospital visit by physician Bone Density [facility] Work Phone: Radiology Comment on above: 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, M94.9] Start: 07-06-2024 End: 07-07-2024 Telephone encounter Ham Elza ZelayaMartinez DO Work Phone: [facility] Comment on above: Patient Question Start: 07-06-2024 End: 07-06-2024 ambulatory HAM L MARTINEZ Facility:[facility] Start: 07-04-2024 End: 07-04-2024 ambulatory HAM L MARTINEZ Facility:[facility] Start: 06-14-2024 End: 06-14-2024 ambulatory Ham L Martinez DO Work Phone: [facility] Comment on above: medication Start: 05-25-2024 End: 05-25-2024 ambulatory Becca Magana SCENERY BUILDER.SLICING MACHINE TENDER Work Phone: Hematology/Oncology Comment on above: Malignant neoplasm o f upper-outer quadrant of right breast in female, estrogen receptor positive (HCC) (Primary Dx) Vertigo (Primary Dx) Start: 05-25-2024 End: 05-25-2024 Patient encounter procedure Helm Magana SCENERY BUILDER.SLICING MACHINE TENDER Work Phone: Hematology/Oncology Start: 05-17-2024 End: 07-07-2024 Telephone encounter Ham Zelayarison DO Work Phone: [facility] Start: 05-02-2024 End: 05-02-2024 ambulatory [facility] Comment on above: Vertigo (Primary Dx) Start: 04-24-2024 End: 04-26-2024 Refill Ham Nieveson DO Work Phone: [facility] Comment on above: Refill Request Start: 04-13-2024 End: 04-15-2024 Documentation procedure Mammography Coordinator [facility] Department Start: 04-13-2024 End: 04-15-2024 Letter encounter Mammography Coordinator [facility] Department Start: 04-13-2024 End: 04-13-2024 ambulatory [facility] Comment on above: Vertigo (Primary Dx) Start: 04-13-2024 End: 04-13-2024 Subsequent hospital visit by physician Screen Mammo [facility] Comment on above: Malignant neoplasm o f upper-outer quadrant of right breast in female, estrogen receptor positive (HCC) [C50.411, Z17.0] Start: 03-30-2024 End: 03-30-2024 Patient encounter procedure Ham Martinez DO Work Phone: [facility] Comment on above: Myalgia (Primary Dx) ; Hypothyroidism, acquired; Iron deficiency anemia due to chronic blood loss; Dyslipidemia; Anxiety and depression; Vertigo; Vitamin D deficiency; Fatigue, unspecified type; Hyperglycemia Start: 03-30-2024 End: 03-30-2024 ambulatory HAM MARTINEZ Facility:[facility] Start: 03-26-2024 End: 03-29-2024 Refill Ham Martinez DO Work Phone: [facility] Comment on above: Refill Request Start: 02-29-2024 Refill Ham araujo DO Work Phone: [facility] Comment on above: Refill Request Start: 02-10-2024 Telephone encounter Ham recinos DO Work Phone: [facility] Comment on above: Results Start: 02-08-2024 End: 02-08-2024 Patient encounter procedure Ham Martinez DO Work Phone: [facility] Comment on above: Vertigo (Primary Dx) ; Dizziness; Anxiety and depression; Hypothyroidism, acquired Start: 02-08-2024 End: 02-08-2024 ambulatory HAM MARTINEZ Facility:[facility] Start: 12-14-2023 Telephone encounter [facility]inos DO [facility] Comment on above: Patient Question Start: 12-08-2023 Telephone encounter Ham recinos DO Work Phone: [facility] Start: 12-07-2023 ambulatory HAM MARTINEZ Facil ity:[facility] Start: 12-07-2023 End: 12-07-2023 Subsequent hospital visit by physician Stress Lab 2 [facility] Work Phone: Cardiology Lab Comment on above: Tachycardia [R00.0] Start: 12-04-2023 Telephone encounter Jody loco RN Cardiology Lab Start: 12-01-2023 Telephone encounter Ainsley Trinidad PA-C Work Phone: [facility] Start: 11-30-2023 ambulatory Ham Burrows son DO Work Phone: [facility] Comment on above: Zio heart monitor Start: 11-25-2023 End: 11-25-2023 Subsequent hospital visit by physician Xr [facility] Work Phone: Radiology Comment on above: Chronic pain of both knees [M25.561, M25.562, G89.29] Start: 11-25-2023 End: 11-25-2023 ambulatory Becca Magana SCENERY BUILDER.SLICING MACHINE TENDER Work Phone: Hematology/Oncology Comment on above: Malignant neoplasm o f upper-outer quadrant of right breast in female, estrogen receptor positive (HCC) (Primary Dx); Encounter for screening mammogram for high-risk patient Start: 11-25-2023 End: 11-25-2023 Patient encounter procedure Becca Magana SCENERY BUILDER.SLICING MACHINE TENDER Work Phone: Hematology/Oncology Comment on above: Tachycardia (Primary Dx); Anxiety and depression; Hypothyroidism, acquired; SOB (shortness of breath); Palpitations; Chronic pain of both knees; Rash; Acute effusion of both middle ears Start: 09-23-2023 ambulatory Ham Burrows son DO Work Phone: [facility] Comment on above: medication Start: 05-27-2023 End: 05-27-2023 ambulatory Becca Magana SCENERY BUILDER.SLICING MACHINE TENDER Work Phone: Hematology/Oncology Comment on above: Malignant neoplasm o f upper-outer quadrant of right breast in female, estrogen receptor positive (HCC) (Primary Dx) Start: 05-27-2023 End: 05-27-2023 Patient encounter procedure Helm Magana SCENERY BUILDER.SLICING MACHINE TENDER Work Phone: [facility] Start: 03-16-2023 Documentation procedure Mammog antony Coordinator [facility] Start: 03-16-2023 Letter encounter Mammography Coordinator [facility] Department Start: 03-16-2023 End: 03-16-2023 Subsequent hospital visit by physician Screen Mammo [facility] Mammogram Comment on above: Malignant neoplasm o f upper-outer quadrant of right breast in female, estrogen receptor positive (HCC) [C50.411, Z17.0] Start: 02-20-2023 End: 02-20-2023 Patient encounter procedure Ham Martinez DO Work Phone: [facility] Comment on above: Vertigo (Primary Dx) ; Situational anxiety; Situational insomnia; Anxiety and depression; Hypothyroidism, acquired Start: 02-06-2023 End: 02-06-2023 ambulatory Kirstin Lemon PT [facility] Comment on above: Lymphedema of arm (P rimary Dx); History of lymph node dissection of right axilla; Arm swelling Start: 02-02-2023 End: 02-02-2023 ambulatory Kirstin Lemon PT [facility] Comment on above: Lymphedema of arm (P rimary Dx); History of lymph node dissection of right axilla; Arm swelling Start: 01-20-2023 End: 01-20-2023 Patient encounter procedure Ham Martinez DO Work Phone: [facility] Comment on above: Situational anxiety (Primary Dx); Muscle spasm of back; Situational insomnia; Anxiety and depression Start: 01-12-2023 Telephone encounter Ham recinos DO Work Phone: [facility] Comment on above: Patient Question Start: 01-07-2023 ambulatory Ham Bertrand Mattjena araujo DO Work Phone: [facility] Comment on above: Zoloft Start: 01-06-2023 Telephone encounter Ham recinos DO Work Phone: [facility] Comment on above: Refill Request Start: 12-01-2022 ambulatory Becca martins SCENERY BUILDER.SLICING MACHINE TENDER Work Phone: Hematology/Oncology Comment on above: Medicine Start: 11-25-2022 Telephone encounter Becca jacobson APRN.SLICING MACHINE TENDER Work Phone: Hematology/Oncology Comment on above: Medication Question Start: 11-24-2022 End: 11-24-2022 ambulatory Becca Magana SCENERY BUILDER.SLICING MACHINE TENDER Work Phone: Hematology/Oncology Comment on above: Malignant neoplasm o f upper-outer quadrant of right breast in female, estrogen receptor positive (HCC) (Primary Dx); Encounter for screening mammogram for high-risk patient Start: 11-24-2022 End: 11-24-2022 Patient encounter procedure Ham Martinez DO Work Phone: [facility] Comment on above: Situational anxiety (Primary Dx); Depressive disorder; Dyslipidemia; Osteopenia of multiple sites; Vitamin D deficiency; Fatigue, unspecified type; Lamellar nail splitting Start: 11-14-2022 End: 11-14-2022 ambulatory Kirstin Cotton POOJA [facility] Comment on above: Lymphedema of arm (P rimary Dx); History of lymph node dissection of right axilla; Arm swelling Start: 10-24-2022 End: 10-24-2022 Patient encounter procedure Ham Martinez DO Work Phone: [facility] Comment on above: Situational anxiety (Primary Dx); Panic attack; Depressive disorder; Lymphedema of arm; History of lymph node dissection of right axilla; Arm swelling; Acute pain of right knee Start: 10-20-2022 End: 10-20-[address] Ham Martinez Work Phone: [facility] Spec[facility] Start: 10-20-2022 End: 10-20-[address] Ham Martinez Work Phone: [facility] Work Phone: Start: 10-20-2022 End: 10-20-[address] Ham Martinez Work Phone: [facility] Start: 10-07-2022 Telephone encounter Ham recinos DO Work Phone: [facility] Comment on above: Medication Dosage Ad justment Start: 09-26-2022 End: 09-26-2022 Patient encounter procedure Ham Martinez DO Work Phone: [facility] Comment on above: Panic attack (Primar y Dx); Palpitations; Situational anxiety; Situational insomnia; Depressive disorder Start: 09-17-2022 End: 09-17-2022 Patient encounter procedure Amparo Hager PA-C Work Phone: [facility] Comment on above: Sinobronchitis (Prim mendel Dx) Start: 09-09-2022 Telephone encounter Ham recinos DO Work Phone: [facility] Comment on above: Anxiety/requesting m edication instructions Start: 09-08-2022 End: 09-08-2022 Patient encounter procedure Ham Martinez DO Work Phone: [facility] Comment on above: Restless leg syndrom e (Primary Dx); Panic attack Start: 08-22-2022 ambulatory HAM Jonas y:[facility] Start: 08-22-2022 End: 08-22-2022 Postop follow up visit related to original px Jose Francisco Coughlin MD Work Phone: Department of Plastic Surgery Comment on above: Personal history of malignant neoplasm of breast (Primary Dx) Start: 08-04-2022 End: 08-04-2022 ambulatory Ham Martinez Facility:[facility] Start: 08-04-2022 End: 08-04-[address] Ham Martinez Work Phone: [facility] Start: 06-26-2022 Telephone encounter Crystal Evans rakeshalmas LUIS FELIPE Work Phone: [facility] Comment on above: Results Start: 06-23-2022 End: 06-23-2022 Patient encounter procedure Ham Martinez DO Work Phone: [facility] Comment on above: Situational anxiety (Primary Dx); Situational insomnia; Encounter for immunization; Dyslipidemia; Osteopenia of multiple sites; Vitamin D deficiency; Fatigue, unspecified type; Multiple joint pain; URI, acute Start: 06-16-2022 End: 06-16-2022 Subsequent hospital visit by physician Bone Density [facility] Work Phone: Radiology Comment on above: Osteopenia of multip le sites [M85.89] Start: 06-02-2022 ambulatory HAM Jonas y:[facility] Start: 06-02-2022 End: 06-02-2022 Postop follow up visit related to original px Jose Francisco Coughlin MD Work Phone: Department of Plastic Surgery Comment on above: Personal history of malignant neoplasm of breast (Primary Dx) Start: 05-30-2022 ambulatory Ham araujo DO Work Phone: [facility] Comment on above: panic Start: 05-30-2022 Telephone encounter Ham recinos DO Work Phone: [facility] Comment on above: Patient Question Start: 05-27-2022 End: 05-27-2022 ambulatory HAM MARTINEZ Facility:[facility] Start: 05-27-2022 End: 05-27-2022 Subsequent hospital visit by physician Jose Francisco Coughlin MD Work Phone: [facility] Comment on above: Personal history of malignant neoplasm of breast Start: 05-23-2022 End: 05-23-2022 ambulatory Becca Magana APRN.SLICING MACHINE TENDER Work Phone: Hematology/Oncology Comment on above: Malignant neoplasm o f upper-outer quadrant of right breast in female, estrogen receptor positive (HCC) (Primary Dx) Start: 05-23-2022 End: 05-23-2022 Patient encounter procedure Becca Magana APRN.SLICING MACHINE TENDER Work Phone: [place] [facility] Start: 05-12-2022 Refill Ham araujo DO Work Phone: [facility] Comment on above: Refill Request; Refi ll Request Start: 05-05-2022 ambulatory HAM MARTINEZ Facilit y:[facility] Start: 05-05-2022 ambulatory HAM MARTINEZ Facilit y:[facility] Start: 05-05-2022 Encounter for other preprocedural examination JOSE FRANCISCO COUGHLIN Facility:[facility] Start: 03-25-2022 End: 03-25-2022 ambulatory Ham Zelayarison Facility:[facility] Start: 03-21-2022 End: 03-21-2022 Patient encounter procedure Ham Martinez DO Work Phone: [facility] Comment on above: Situational anxiety (Primary Dx); Situational insomnia; Borderline abnormal thyroid function test; Dyslipidemia; Osteopenia of multiple sites; Muscle cramp Start: 03-14-2022 Documentation procedure Mammog antony Coordinator [facility] Start: 03-14-2022 Letter encounter Mammography Coordinator [facility] Department Start: 02-17-2022 ambulatory HAM MARTINEZ Facilit y:[facility] Start: 02-17-2022 End: 02-17-2022 Office outpatient visit 15 minutes Jose Francisco Coughlin MD Work Phone: Department of Plastic Surgery Comment on above: Personal history of malignant neoplasm of breast (Primary Dx) Start: 2022 Telephone encounter Freddy marquez DO Work Phone: Hematology/Oncology Comment on above: Felt Checker - O ther (Symptoms ) Start: 12-09-2021 Telephone encounter Ham recinos DO Work Phone: [facility] Comment on above: Insurance Authorizat ion Start: 12-09-2021 End: 12-09-2021 Patient encounter procedure Ham Martinez DO Work Phone: [facility] Comment on above: Situational anxiety (Primary Dx); Restless legs; Situational insomnia; S/P breast reconstruction; Dyslipidemia; Fatigue, unspecified type; Vitamin D deficiency; Myalgia; Multiple joint pain Start: 11-11-2021 ambulatory HAM MARTINEZ Facilit y:[facility] Start: 11-11-2021 End: 11-11-2021 Postop follow up visit related to original px Jose Francisco Coughlin MD Work Phone: Department of Plastic Surgery Comment on above: Encounter for follow -up (Primary Dx); Personal history of malignant neoplasm of breast Start: 10-24-2021 End: 10-24-2021 Patient encounter procedure Courtney Morataya APRN.SLICING MACHINE TENDER Work Phone: [facility] Comment on above: Mouth sores (Primary Dx) Start: 09-30-2021 ambulatory HAM MARTINEZ Facilit y:[facility] Start: 09-23-2021 ambulatory HAM MARTINEZ Facilit y:[facility] Start: 09-17-2021 End: 09-17-2021 ambulatory HAM MARTINEZ Facility:[facility] Start: 09-13-2021 ambulatory HAM MARTINEZ Facilit y:[facility] Start: 09-13-2021 ambulatory HAM MARTINEZ Facilit y:[facility] Start: 09-04-2021 ambulatory HAM MARTINEZ Facilit y:[facility] Start: 08-30-2021 ambulatory HAM MARTINEZ Facilit y:[facility] Start: 08-23-2021 ambulatory HAM MARTINEZ Facilit y:[facility] Start: 03-21-2021 End: 03-21-2021 Subsequent hospital visit by physician Phong Shepherd MD Work Phone: [facility] Start: 02-05-2021 End: 02-05-2021 Subsequent hospital visit by physician Brandon [facility] Work Phone: Radiology Comment on above: Forearm injuries, le ft, initial encounter [S59.912A] Start: 05-17-2018 End: 03-13-2021 Patient encounter status Phong Shepherd MD Work Phone: [facility] Procedures Date Procedure Procedure Detail Performing Clinician Start: 01-02-2025 Radex hand minimum 3 views Matthew Maki SCENERY BUILDER.SLICING MACHINE TENDER Work Phone: Start: 07-04-2024 Lipid 1996 panel - Serum or Plasma Ham Martinez DO Work Phone: Start: 04-13-2024 Screening digital breast tomosynthesis bi Becca Magana SCENERY BUILDER.SLICING MACHINE TENDER Work Phone: Start: 12-07-2023 Cv strs tst xers&/or rx cont ecg trcg only Ham L Martinez DO Work Phone: Start: 11-25-2023 Radiologic exam knee complete 4/more views Ham L Martinez DO Work Phone: Start: 11-25-2023 Ecg routine ecg w/least 12 lds i&r only [facility] Provider Start: 11-20-2023 Lipid 1996 panel - Serum or Plasma Becca Magana SCENERY BUILDER.SLICING MACHINE TENDER Work Phone: Start: 03-16-2023 End: 03-16-2023 Mammography Becca Magana SCENERY BUILDER.SLICING MACHINE TENDER Work Phone: Start: 12-17-2022 Lipid 1996 panel - Serum or Plasma Becca Magana APRN.SLICING MACHINE TENDER Work Phone: Start: 06-23-2022 INFLUENZA VACCINE QUADRIVALENT 6 MO - 64 YRS IM Ham Martinez DO Work Phone: Start: 06-16-2022 Dxa bone density study 1/> sites axial skel Ham Martinez DO Work Phone: Start: 05-27-2022 CONTINUOUS CARDIAC MONITORING STRIP Other Other Start: 05-27-2022 CONTINUOUS CARDIAC MONITORING STRIP Other Other Start: 03-14-2022 Mammography Mammography Coordinator Start: 11-20-2021 Adult depression screening assessment Ham Martinez DO Work Phone: Start: 09-03-2021 H/O: surgery History of lymph node dissection of right axilla Kirstin Lemon PT Start: 05-13-2021 Adult depression screening assessment Courtney Morataya APRN.SLICING MACHINE TENDER Work Phone: Start: 02-11-2021 H/O: section History of section Phong Shepherd MD Work Phone: Start: 02-05-2021 End: 02-05-2021 Radex forearm 2 views Bryan Velez APRN.SLICING MACHINE TENDER Work Phone: Start: 08-20-2020 Mammography Courtney Morataya APRN.SLICING MACHINE TENDER Work Phone: Start: 12-11-2014 Colonoscopy Courtney Morataya APRN.SLICING MACHINE TENDER Work Phone: H/O: section S/P Dr. Bridgette Martinez Work Phone: H/O: surgery History of lymph node dissection of right axilla Ham Martinez DO Work Phone: H/O: surgery S/P oophorectomy Dr. Ham Martinez Work Phone: H/O: surgery History of lymph node dissection of right axilla Kirstin Lemon PT H/O: surgery History of lymph node dissection of right axilla Kirstin Lemon PT H/O: surgery History of lymph node dissection of right axilla Kirstin Cotton PT Plan of Treatment Date Care Activity Detail Author Start: 2037 RSV Vaccine (1 - 1-d ose 75+ series) RSV Vaccine (1 - 1-dose 75+ series) [facility] Start: 04-29-2033 Urine microalbumin profile DTa P,Tdap,Td Vaccine (3 - Td or Tdap) [facility] Start: 07-04-2029 Lipid panel Lipid Screening [facility] Start: 11-19-2028 Lipid panel Lipid Screening [facility] Start: 02-02-2028 Diabetes Screening Diabetes Screenin g [facility] Start: 12-18-2027 Lipid 1996 panel - S valentina or Plasma Lipid Screening [facility] Start: 12-18-2027 Lipid panel Lipid Screening [facility] Start: 12-18-2027 LIPID SCREEN LIPID SCREEN [facility] Start: 10-21-2027 HPV TESTING HPV TESTING [facility] Start: 10-21-2027 PAP TESTING PAP TESTING [facility] Start: 10-21-2027 Screening for malign ant neoplasm of cervix [facility] Start: 07-04-2027 [facility] Start: 06-16-2027 LIPID SCREEN LIPID SCREEN [facility] Start: 11-19-2026 Diabetes Screening Diabetes Screenin [facility] Start: 07-04-2026 LIPID SCREEN LIPID SCREEN [facility] Start: 12-17-2025 DIABETES SCREEN DIABETES SCREEN [facility] Start: 12-17-2025 Diabetes Screening Diabetes Screenin g [facility] Start: 10-20-2025 Screening for malign ant neoplasm of cervix Cervical Cancer Screening [facility] Start: 10-03-2025 Annual PCP Team Attendant [employer] [facility] Disease Visit Annual PCP Team Chronic Disease Visit [facility] Start: 07-06-2025 Annual PCP Team Attendant [employer] [facility] Disease Visit Annual PCP Team Chronic Disease Visit [facility] Start: 07-06-2025 Covid-19 Vaccine ( season) Covid-19 Vaccine ( season) [facility] Comment on above: Postponed from 03/27 (Declined at this time) Start: 06-16-2025 DIABETES SCREEN DIABETES SCREEN [facility] Start: 05-23-2025 End: 05-23-2025 ambulatory 05/23/2025 1:00 PM EDT Visit (SP) Office Hematology/Oncology [address] [place] [address] Becca Magana APRN.SLICING MACHINE TENDER [address] [place] [address] 6 MO OV *mamm w/ kezia 04/14/25 Hematology/Oncology Comment on above: 6 MO OV *mamm w/ [place] o 04/14/25 Start: 04-14-2025 End: 04-14-2025 Patient encounter procedure 04/14/2025 10:10 AM EDT Appointment Mammogram [address] [place] [address] Malignant neoplasm of upper-outer quadrant of right breast in female, estrogen receptor positive (HCC) [C50.411, Z17.0]; Encounter for screening mammogram for high-risk patient [Z12.31] Mammogram Comment on above: Malignant neoplasm o f upper-outer quadrant of right breast in female, estrogen receptor positive (HCC) [C50.411, Z17.0]; Encounter for screening mammogram for high-risk patient [Z12.31] Start: 04-13-2025 Screening for malign ant neoplasm of breast Mammogram Screening [facility] Start: 03-30-2025 Annual PCP Team Attendant [employer] [facility] Disease Visit Annual PCP Team Chronic Disease Visit [facility] Start: 03-27-2025 Influenza vaccination Influenza Vacc ine (#1) [facility] Start: 03-20-2025 End: 03-20-2025 Patient encounter procedure 03/20/2025 12:00 PM EDT Office Visit [facility] [address] [place] [address] Ham Martinez DO [address] [place] [address] 6 month follow up Family [facility] [place] Comment on above: 6 month follow up Start: 02-21-2025 End: 02-21-2025 Patient encounter procedure 02/21/2025 10:30 AM EDT Office Visit Family [facility] [place] [address] [place] [address] Ethan Mckeon V, DO [address] [place] [address] Left wrist injury [facility] Comment on above: Left wrist injury Start: 02-07-2025 Annual PCP Team Attendant [employer] [facility] Disease Visit Annual PCP Team Chronic Disease Visit [facility] Start: 02-01-2025 End: 02-01-2025 Patient encounter procedure 02/01/2025 1:00 PM EDT Office Visit [facility] [address] [place] [address] Ethan Mckeon V, DO [address] [place] [address] Left wrist injury [facility] Comment on above: Left wrist injury Start: 02-01-2025 End: 02-01-2025 ambulatory 02/01/2025 12:45 PM EDT Results Only [facility] [address] [place] [address] [facility] Start: 01-10-2025 End: 01-10-2025 Patient encounter procedure 01/10/2025 3:00 PM EDT Office Visit [facility] [address] [place] [address] Ethan Mckeon V, DO [address] [place] [address] Left wrist injury [facility] Comment on above: Left wrist injury Start: 01-03-2025 End: 04-04-2025 CBC panel - Blood by Automated count COMPLETE BLOOD COUNT Lab Routine Hyperlipidemia, mixed Expected: 01/03/2025, Expires: 04/04/2025 [facility] Comment on above: Expected: 01/03/2025 , Expires: 04/04/2025 Start: 01-03-2025 End: 04-04-2025 Comprehensive metabolic 2000 panel - Serum or Plasma COMPREHENSIVE METABOLIC PANEL Lab Routine Hyperlipidemia, mixed Expected: 01/03/2025, Expires: 04/04/2025 [facility] Comment on above: Expected: 01/03/2025 , Expires: 04/04/2025 Start: 01-03-2025 End: 04-04-2025 Hemoglobin A1c in Blood HEMOGLOBIN A1C Lab Routine Hyperglycemia Expected: 01/03/2025, Expires: 04/04/2025 [facility] Comment on above: Expected: 01/03/2025 , Expires: 04/04/2025 Start: 01-03-2025 End: 04-04-2025 Lipid 1996 panel - Serum or Plasma LIPID PANEL BASIC Lab Routine Hyperlipidemia, mixed Expected: 01/03/2025, Expires: 04/04/2025 [facility] Comment on above: Expected: 01/03/2025 , Expires: 04/04/2025 Start: 01-03-2025 End: 04-04-2025 Thyrotropin [Units/volume] in Serum or Plasma THYROID STIMULATING HORMONE Lab Routine Hyperlipidemia, mixed Expected: 01/03/2025, Expires: 04/04/2025 [facility] Comment on above: Expected: 01/03/2025 , Expires: 04/04/2025 Start: 12-11-2024 Colonoscopy COLONOSCOPY [facility] Start: 12-11-2024 COLORECTAL CANCER SCREENING COLORECTAL CANCER SCREENING [facility] Start: 12-11-2024 Screening for malign ant neoplasm of colon [facility] Start: 12-06-2024 DIABETES SCREEN DIABETES SCREEN [facility] Start: 11-24-2024 Annual PCP Team Attendant [employer] [facility] Disease Visit Annual PCP Team Chronic Disease Visit [facility] Start: 11-21-2024 End: 11-21-2024 ambulatory 11/21/2024 11:00 AM EDT Visit (SP) Office Hematology/Oncology [address] [place] [address] Becca Magana APRN.SLICING MACHINE TENDER [address] [place] [id number] 6 MO OV Hematology/Oncology Comment on above: 6 MO OV Start: 10-03-2024 End: 10-03-2024 Patient encounter procedure 10/03/2024 9:40 AM EDT Office Visit [facility] [address] [place] [address] Ham Martinez, DO [address] [place] [address] Med check [facility] Comment on above: Med check Start: 08-14-2024 Annual PCP Team Attendant [employer] [facility] Disease Visit Annual PCP Team Chronic Disease Visit [facility] Start: 08-04-2024 End: 08-04-2024 Patient encounter procedure 08/04/2024 10:05 AM EST Appointment Radiology [address] [place] [id number] 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, M94.9] Radiology Comment on above: 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, M94.9] Start: 07-06-2024 End: 07-06-2024 Patient encounter procedure 07/06/2024 1:00 PM EST Office Visit Family [facility] [address] [place] [address] Ham Martinez DO [address] [place] [address] 3 month follow up Family Sheeba [facility] Comment on above: 3 month follow up Start: 07-04-2024 DIABETES SCREEN DIABETES SCREEN [facility] Start: 06-29-2024 End: 09-28-2024 25-hydroxyvitamin D3 [Mass/volume] in Serum or Plasma VITAMIN D 25 HYDROXY Lab Routine Myalgia Fatigue, unspecified type Expected: 06/29/2024, Expires: 09/28/2024 [facility] Comment on above: Expected: 06/29/2024 , Expires: 09/28/2024 Start: 06-29-2024 End: 09-28-2024 CBC panel - Blood by Automated count COMPLETE BLOOD COUNT Lab Routine Iron deficiency anemia due to chronic blood loss Dyslipidemia Fatigue, unspecified type Expected: 06/29/2024, Expires: 09/28/2024 [facility] Comment on above: Expected: 06/29/2024 , Expires: 09/28/2024 Start: 06-29-2024 End: 09-28-2024 Cobalamin (Vitamin B12) [Mass/volume] in Serum or Plasma VITAMIN B12 Lab Routine Myalgia Fatigue, unspecified type Expected: 06/29/2024, Expires: 09/28/2024 [facility] Work Phone: Comment on above: Expected: 06/29/2024 , Expires: 09/28/2024 Start: 06-29-2024 End: 09-28-2024 Comprehensive metabolic 2000 panel - Serum or Plasma COMPREHENSIVE METABOLIC PANEL Lab Routine Myalgia Fatigue, unspecified type Expected: 06/29/2024, Expires: 09/28/2024 [facility] Comment on above: Expected: 06/29/2024 , Expires: 09/28/2024 Start: 06-29-2024 End: 09-28-2024 Hemoglobin A1c in Blood HEMOGLOBIN A1C Lab Routine Hyperglycemia Expected: 06/29/2024, Expires: 09/28/2024 [facility] Comment on above: Expected: 06/29/2024 , Expires: 09/28/2024 Start: 06-29-2024 End: 09-28-2024 Iron and Iron binding capacity panel - Serum or Plasma IRON AND TIBC Lab Routine Iron deficiency anemia due to chronic blood loss Expected: 06/29/2024, Expires: 09/28/2024 [facility] Comment on above: Expected: 06/29/2024 , Expires: 09/28/2024 Start: 06-29-2024 End: 09-28-2024 Lipid 1996 panel - Serum or Plasma LIPID PANEL BASIC Lab Routine Dyslipidemia Expected: 06/29/2024, Expires: 09/28/2024 [facility] Comment on above: Expected: 06/29/2024 , Expires: 09/28/2024 Start: 06-29-2024 End: 09-28-2024 Magnesium [Mass/volume] in Serum or Plasma MAGNESIUM Lab Routine Myalgia Expected: 06/29/2024, Expires: 09/28/2024 [facility] Comment on above: Expected: 06/29/2024 , Expires: 09/28/2024 Start: 06-13-2024 End: 06-13-2024 Patient encounter procedure Radiology Comment on above: 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, M94.9] Start: 06-03-2024 Covid-19 Vaccine ( season) Covid-19 Vaccine ( season) [facility] Comment on above: Postponed from 03/27 (Declined at this time) Start: 06-03-2024 End: 06-03-2024 ambulatory 06/03/2024 11:00 AM EST OT/PT/Speech Visit [facility] [address] [place] [address] Abdirashid Echavarria, PT [address] [facility] [place] [address] Vertigo [R42] [facility] Comment on above: Vertigo [R42] Start: 05-27-2024 End: 05-27-2024 ambulatory 05/27/2024 11:15 AM EDT OT/PT/Speech Visit [facility] [address] [place] [address] Jill Marcelo, PT Dx: Vertigo [R42 (ICD-10-CM)] [facility] Comment on above: Dx: Vertigo [R42 (IC D-10-CM)] Start: 05-25-2024 End: 05-25-2024 ambulatory 05/25/2024 10:30 AM EDT Visit (SP) Office Hematology/Oncology [address] [place] [address] Becca Magana APRN.SLICING MACHINE TENDER [address] [place] [address] 6 MO OV* r/s 05/20 Hematology/Oncology Comment on above: 6 MO OV* r/s 05/20 Start: 05-20-2024 End: 05-20-2024 ambulatory Hematology/Oncology Comment on above: 6 MO OV* Dx: Vertigo [R42 (IC D-10-CM)] Start: 05-13-2024 End: 05-13-2024 ambulatory 05/13/2024 11:15 AM EDT OT/PT/Speech Visit [facility] [address] [place] [address] Jill Marcelo, PT Dx: Vertigo [R42 (ICD-10-CM)] [facility] Comment on above: Dx: Vertigo [R42 (IC D-10-CM)] Start: 05-02-2024 End: 05-02-2024 ambulatory 05/02/2024 2:45 PM EDT OT/PT/Speech Visit [facility] [address] [place] [address] Jill Marcelo, PT Dx: Vertigo [R42 (ICD-10-CM)] [facility] Comment on above: Dx: Vertigo [R42 (IC D-10-CM)] Start: 05-02-2024 End: 05-02-2024 ambulatory 05/02/2024 11:45 AM EDT OT/PT/Speech Visit [facility] [address] [place] [address] Jodee Kowalski, REAL TIME TRADER [address] [place] [address] Dx: Vertigo [R42 (ICD-10-CM)] [facility] Comment on above: Dx: Vertigo [R42 (IC D-10-CM)] Start: 04-29-2024 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 PCP 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 [employer] gopi Disease Visit Annual PCP Team Chronic Disease Visit [facility] Start: 04-13-2024 End: 04-13-2024 ambulatory 04/13/2024 11:15 AM EDT OT/PT/Speech Visit [facility] [address] [place] [address] Jill Marcelo, PT dizziness [facility] Comment on above: dizziness Start: 04-13-2024 End: 04-13-2024 Patient encounter procedure 04/13/2024 10:30 AM EDT Appointment Mammogram [address] [place] [address] annual Mammogram Comment on above: annual Start: 03-30-2024 End: 03-30-2024 Patient encounter procedure 03/30/2024 10:20 AM EDT Office Visit Family Medicine [facility] [address] [place] [address] Ham Martinez DO [address] [place] [address] 3-4 Month follow up [facility] Comment on above: 3-4 Month follow up Start: 03-27-2024 Covid-19 Vaccine ( season) Covid-19 Vaccine () [facility] Start: 03-27-2024 Covid-19 Vaccine () Covid-19 Vaccine () [facility] Start: 03-27-2024 Influenza vaccination Influenza Vacc ine (#1) [facility] Start: 03-17-2024 End: 03-17-2024 Patient encounter procedure 03/17/2024 10:50 AM EDT Appointment Mammogram [address] [place] [address] annual Mammogram Comment on above: annual Start: 03-16-2024 Mammography [facility] Start: 03-16-2024 Screening for malign ant neoplasm of breast Mammogram Screening [facility] Start: 03-16-2024 End: 03-16-2024 ambulatory 03/16/2024 11:15 AM EDT OT/PT/Speech Visit [facility] [address] [place] [address] Jill Marcelo, PT Vertigo [R42] [facility] Comment on above: Vertigo [R42] Start: 02-21-2024 ANNUAL PCP TEAM CATEGORY PLANNER GOPI DISEASE VISIT ANNUAL PCP TEAM CHRONIC DISEASE VISIT [facility] Start: 01-21-2024 ANNUAL PCP TEAM CATEGORY PLANNER GOPI DISEASE VISIT ANNUAL PCP TEAM CHRONIC DISEASE VISIT [facility] Start: 12-20-2023 ANNUAL PCP TEAM CATEGORY PLANNER GOPI DISEASE VISIT ANNUAL PCP TEAM CHRONIC DISEASE VISIT [facility] Start: 12-07-2023 End: 12-07-2023 Patient encounter procedure 12/07/2023 10:00 AM EDT Appointment Cardiology Lab [address] [place] [address] Tachycardia [R00.0] Cardiology Lab Comment on above: Tachycardia [R00.0] Start: 12-07-2023 Subsequent hospital visit by physician 12/07/2023 10:00 AM EDT Hospital Encounter Cardiology Lab [address] [place] [address] Tachycardia [R00.0] Cardiology Lab Comment on above: Tachycardia [R00.0] Start: 12-01-2023 End: 03-01-2024 Urinalysis complete panel - Urine URINALYSIS WITH MICROSCOPIC, REFLEX CULTURE Lab Routine Dysuria Expected: 12/01/2023, Expires: 03/01/2024 [facility] Work Phone: Comment on above: Expected: 12/01/2023 , Expires: 03/01/2024 Start: 03-27-2023 Covid-19 Vaccine () Covid-19 Vaccine () [facility] Start: 03-27-2023 Influenza vaccination INFLUENZA (#1) [facility] Start: 03-23-2023 End: 05-23-2023 Thyrotropin [Units/volume] in Serum or Plasma TSH BLD Lab Routine Hypothyroidism, acquired Expected: 03/23/2023, Expires: 05/23/2023 [facility] Work Phone: Comment on above: Expected: 03/23/2023 , Expires: 05/23/2023 Start: 03-23-2023 End: 05-23-2023 Thyroxine (T4) free [Mass/volume] in Serum or Plasma T4 FREE/FREE THYROX Lab Routine Hypothyroidism, acquired Expected: 03/23/2023, Expires: 05/23/2023 [facility] Work Phone: Comment on above: Expected: 03/23/2023 , Expires: 05/23/2023 Start: 03-23-2023 End: 05-23-2023 Triiodothyronine (T3) Free [Mass/volume] in Serum or Plasma T3 FREE BLD Lab Routine Hypothyroidism, acquired Expected: 03/23/2023, Expires: 05/23/2023 [facility] Work Phone: Comment on above: Expected: 03/23/2023 , Expires: 05/23/2023 Start: 03-14-2023 Mammography MAMMOGRAM [facility] Start: 02-24-2023 End: 04-26-2023 Cobalamin (Vitamin B12) [Mass/volume] in Serum or Plasma VITAMIN B12 BLOOD Lab Routine Fatigue, unspecified type Lamellar nail splitting Expected: 02/24/2023, Expires: 04/26/2023 [facility] Work Phone: Comment on above: Expected: 02/24/2023 , Expires: 04/26/2023 Start: 12-16-2022 HPV TESTING HPV TESTING [facility] Start: 12-16-2022 PAP TESTING PAP TESTING [facility] Start: 11-24-2022 End: 01-24-2023 25-hydroxyvitamin D3 [Mass/volume] in Serum or Plasma VITAMIN D 25 HYDROXY Lab Routine Osteopenia of multiple sites Vitamin D deficiency Fatigue, unspecified type Lamellar nail splitting Expected: 11/24/2022, Expires: 01/24/2023 [facility] Work Phone: Comment on above: Expected: 11/24/2022 , Expires: 01/24/2023 Start: 11-24-2022 End: 01-24-2023 CBC W Auto Differential panel - Blood CBC + DIFF Lab Routine Dyslipidemia Lamellar nail splitting Expected: 11/24/2022, Expires: 01/24/2023 [facility] Work Phone: Comment on above: Expected: 11/24/2022 , Expires: 01/24/2023 Start: 11-24-2022 End: 01-24-2023 Comprehensive metabolic 2000 panel - Serum or Plasma COMP METABOLIC PANEL Lab Routine Dyslipidemia Lamellar nail splitting Expected: 11/24/2022, Expires: 01/24/2023 [facility] Work Phone: Comment on above: Expected: 11/24/2022 , Expires: 01/24/2023 Start: 11-24-2022 End: 01-24-2023 Hemoglobin A1c in Blood HGB A1C Lab Routine Dyslipidemia Expected: 11/24/2022, Expires: 01/24/2023 [facility] Work Phone: Comment on above: Expected: 11/24/2022 , Expires: 01/24/2023 Start: 11-24-2022 End: 01-24-2023 Lipid 1996 panel - Serum or Plasma LIPID PANEL BASIC Lab Routine Dyslipidemia Expected: 11/24/2022, Expires: 01/24/2023 [facility] Work Phone: Comment on above: Expected: 11/24/2022 , Expires: 01/24/2023 Start: 11-24-2022 End: 01-24-2023 Thyrotropin [Units/volume] in Serum or Plasma TSH BLD Lab Routine Depressive disorder Osteopenia of multiple sites Fatigue, unspecified type Lamellar nail splitting Expected: 11/24/2022, Expires: 01/24/2023 [facility] Work Phone: Comment on above: Expected: 11/24/2022 , Expires: 01/24/2023 Start: 11-24-2022 End: 01-24-2023 Thyroxine (T4) free [Mass/volume] in Serum or Plasma T4 FREE/FREE THYROX Lab Routine Depressive disorder Osteopenia of multiple sites Fatigue, unspecified type Lamellar nail splitting Expected: 11/24/2022, Expires: 01/24/2023 [facility] Work Phone: Comment on above: Expected: 11/24/2022 , Expires: 01/24/2023 Start: 11-24-2022 End: 01-24-2023 Triiodothyronine (T3) Free [Mass/volume] in Serum or Plasma T3 FREE BLD Lab Routine Depressive disorder Osteopenia of multiple sites Fatigue, unspecified type Lamellar nail splitting Expected: 11/24/2022, Expires: 01/24/2023 [facility] Work Phone: Comment on above: Expected: 11/24/2022 , Expires: 01/24/2023 Start: 11-20-2022 Adult depression scr [facility] assessment DEPRESSION SCREENING [facility] Start: 08-22-2022 End: 08-22-2022 Patient encounter procedure 08/22/2022 Office Visit Plastic Surgery Jose Francisco Coughlin MD [address] [facility] [address] [place] [address] Department of Plastic Surgery Start: 08-04-2022 Patient referral [facility] Work Phone: Start: 06-21-2022 End: 08-21-2022 Comprehensive metabolic 2000 panel - Serum or Plasma COMP METABOLIC PANEL Lab Routine Borderline abnormal thyroid function test Expected: 06/21/2022, Expires: 08/21/2022 [facility] Work Phone: Comment on above: Expected: 06/21/2022 , Expires: 08/21/2022 Start: 06-21-2022 End: 08-21-2022 Lipid 1996 panel - Serum or Plasma LIPID PANEL BASIC Lab Routine Dyslipidemia Expected: 06/21/2022, Expires: 08/21/2022 [facility] Work Phone: Comment on above: Expected: 06/21/2022 , Expires: 08/21/2022 Start: 06-21-2022 End: 08-21-2022 Thyrotropin [Units/volume] in Serum or Plasma TSH BLD Lab Routine Borderline abnormal thyroid function test Expected: 06/21/2022, Expires: 08/21/2022 [facility] Work Phone: Comment on above: Expected: 06/21/2022 , Expires: 08/21/2022 Start: 06-21-2022 End: 08-21-2022 Thyroxine (T4) free [Mass/volume] in Serum or Plasma T4 FREE/FREE THYROX Lab Routine Borderline abnormal thyroid function test Expected: 06/21/2022, Expires: 08/21/2022 [facility] Work Phone: Comment on above: Expected: 06/21/2022 , Expires: 08/21/2022 Start: 06-21-2022 End: 08-21-2022 Triiodothyronine (T3) Free [Mass/volume] in Serum or Plasma T3 FREE BLD Lab Routine Borderline abnormal thyroid function test Expected: 06/21/2022, Expires: 08/21/2022 [facility] Work Phone: Comment on above: Expected: 06/21/2022 , Expires: 08/21/2022 Start: 06-02-2022 End: 06-02-2022 Patient encounter procedure 06/02/2022 Office Visit Plastic Surgery Jose Francisco Coughlin MD [address] [facility] [address] [place] [phone] Department of Plastic Surgery Start: 05-27-2022 End: 05-27-2022 Exc b9 lesion mrgn xcp sk tg t/a/l 0.5 cm/< EXCISION LESION SKIN TRUNK Personal history of malignant neoplasm of breast 05/27/2022 8:06 AM EDT [facility] Start: 05-27-2022 End: 05-27-2022 Grafting of autologous fat by lipo 50 cc or less GRAFT AUTOLOGOUS FAT TRUNK BREAST Personal history of malignant neoplasm of breast 05/27/2022 8:06 AM EDT [facility] Start: 05-27-2022 End: 05-27-2022 Admission to same day surgery center 05/27/2022 Surgery Multispecialty Jose Francisco Coughlin MD [address] [facility] [address] [place] [id number] balancing reduction mastopexy CCCT PERIOP Comment on above: balancing reduction mastopexy Start: 05-27-2022 End: 05-27-2022 Excision skin abd infraumbilical panniculectomy [facility] Start: 05-27-2022 End: 05-27-2022 Mastopexy [facility] Start: 05-27-2022 End: 05-27-2022 Revision reconstructed breast [facility] Start: 05-27-2022 Subsequent hospital visit by physician 05/27/2022 Hospital Encounter [facility]pecialty [facility] [address] [facility] [address] [place] [phone] Personal history of malignant neoplasm of breast [facility] PERIOP Comment on above: Personal history of malignant neoplasm of breast Start: 05-13-2022 Adult depression scr eening assessment DEPRESSION SCREENING [facility] Start: 05-05-2022 End: 05-05-2022 Patient encounter procedure 05/05/2022 Office Visit Plastic Surgery [facility]oughlin [facility] [address] [facility] [address] [place] [address] Department of Plastic Surgery Start: 03-27-2022 Influenza vaccination [facility] Start: 02-19-2022 Screening for malign ant neoplasm of breast Breast cancer screen [facility] Work Phone: Start: 02-17-2022 End: 02-17-2022 Patient encounter procedure 02/17/2022 Office Visit Plastic Surgery Jose Francisco Coughlin MD [address] [facility] [address] [place], [place] [phone] Department of Plastic Surgery Start: 2022 RSV Vaccine (1 - 1-d ose 60+ series) RSV Vaccine (1 - 1-dose 60+ series) [facility] Start: 12-15-2021 DTaP/Tdap/Td vaccine (2 - Td or Tdap) DTaP/Tdap/Td vaccine (2 - Td or Tdap) [facility] Work Phone: Start: 12-15-2021 Tetanus vaccination TETANUS [facility] Start: 12-15-2021 Urine microalbumin profile DTA P,TDAP,TD (2 - Td or Tdap) [facility] Start: 10-23-2021 COVID-19 VACCINE (4 - Booster) COVID-19 VACCINE (4 - Booster) [facility] Start: 10-17-2021 COVID-19 VACCINE (4 - Booster) COVID-19 VACCINE (4 - Booster) [facility] Start: 09-19-2021 COVID-19 VACCINE (4 - Booster for Pfizer series) COVID-19 VACCINE (4 - Booster for Pfizer series) [facility] Start: 09-19-2021 COVID-19 VACCINE (4 - Pfizer series) COVID-19 VACCINE (4 - Pfizer series) [facility] Start: 08-20-2021 Mammography MAMMOGRAM [facility] Start: 07-27-2021 DEPRESSION ASSESSMENT DEPRESSION ASS ESSMENT [facility] Start: 04-10-2021 COVID-19 VACCINE (3 - Booster for Pfizer series) COVID-19 VACCINE (3 - Booster for Pfizer series) [facility] Start: 03-27-2021 Influenza vaccination Flu vaccine (# 1) [facility] Work Phone: Start: 01-03-2021 COVID-19 VACCINE (3 - Booster for Pfizer series) COVID-19 VACCINE (3 - Booster for Pfizer series) [facility] Start: 04-20-2020 MAMMOGRAM LEFT MAMMOGRAM LEFT [facility] Start: 04-20-2020 Screening for malign ant neoplasm of breast MAMMOGRAM LEFT [facility] Start: 11-17-2015 FECAL OCCULT BLOOD FECAL OCCULT BLOO D [facility] Start: 11-17-2015 Screening for malign ant neoplasm of colon Fecal Occult Blood [facility] Start: 01-15-2012 Pneumococcal Vaccine : 50+ (1 of 1 - PCV) Pneumococcal Vaccine: 50+ (1 of 1 - PCV) [facility] Start: 01-15-2012 Zoster vaccine hzv l mary for subcutaneous use ZOSTER (SHINGLES) VACCINE (1 of 2) [facility] Start: 2007 COLOGUARD (FIT-DNA) COLOGUARD (FIT-D NA) [facility] Start: 2007 Colonoscopy COLORECTAL CAN CER SCREENING DISCUSSION [facility] Start: [address] COLONOGRAPHY [facility] Start: 2007 Screening for malign ant neoplasm of colon [facility] Start: 2007 SIGMOIDOSCOPY SIGMOIDOSCOPY [facility] Start: 2002 Diabetes screen Diabetes screen [facility] Work Phone: Start: 2002 Fasting lipid profile LIPID SCREENIN G [facility] Start: 2002 Lipid panel [facility] Start: 1983 Screening for malign ant neoplasm of cervix [facility] Start: 1981 Third diphtheria, te tanus and acellular pertussis (DTaP) vaccination TDAP (ADULT) [facility] Start: 01-15-1980 HIV SCREENING HIV SCREENING [facility] Start: 01-15-1980 HIV screening HIV Screening [facility] Start: 01-15-1980 Tetanus vaccination TETANUS [facility] Start: 1977 HIV screening [facility] Start: 01-15-1968 PNEUMOCOCCAL (1 - PCV) PNEUMOCOCCAL (1 - PCV) [facility] Start: 1962 Creatinine measurement Creatinine mo nitoring [facility] Work Phone: Start: 1962 Hepatitis C antibody , confirmatory test HEPATITIS C VIRUS SCREENING [facility] Start: 1962 Hepatitis C screening [facility] Start: 1962 Potassium monitoring Potassium monit oring [facility] Work Phone: End: 10-03-2025 Bacteria identified in Urine by Culture BACTERIAL CULTURE, URINE Microbiology Routine Dysuria Recurrent UTI (urinary tract infection) Once per week for 50 Occurrences starting 10/03/2024 until 10/03/2025 [facility] Work Phone: Comment on above: Once per week for 50 Occurrences starting 10/03/2024 until 10/03/2025 End: 12-24-2024 DBT Breast - bilateral screening KIERRA SCREENING W KEZIA Radiology Routine Malignant neoplasm of upper-outer quadrant of right breast in female, estrogen receptor positive (HCC) Encounter for screening mammogram for high-risk patient 1 Occurrences starting 11/25/2023 until 12/24/2024 [facility] Work Phone: Comment on above: 1 Occurrences starti ng 11/25/2023 until 12/24/2024 End: 12-21-2025 DBT Breast - bilateral screening KIERRA SCREENING W KEZIA Radiology Routine Malignant neoplasm of upper-outer quadrant of right breast in female, estrogen receptor positive (HCC) Encounter for screening mammogram for high-risk patient 1 Occurrences starting 11/21/2024 until 12/21/2025 [facility] Work Phone: Comment on above: 1 Occurrences starti ng 11/21/2024 until 12/21/2025 End: 04-20-2023 Dxa bone density study 1/> sites axial skel DXA-AXIAL SKELETON Radiology Routine Osteopenia of multiple sites 1 Occurrences starting 03/21/2022 until 04/20/2023 [facility] Work Phone: Comment on above: 1 Occurrences starti ng 03/21/2022 until 04/20/2023 DXA Skeletal system. axial Views for bone density DXA-AXIAL SKELETON Radiology Routine Disorder of bone and cartilage 08/04/2024 10:24 AM EST [facility] Work Phone: ECG COMPLETE [facility] Comment on above: Ordered: 11/25/2023 Excision skin abd infraumbilical panniculectomy EXCISION EXCESSIVE SKIN SQ TISSUE ABDOMEN Personal history of malignant neoplasm of breast [facility] End: 11-24-2024 EXERCISE STRESS ECG (WITHOUT IMAGING) EXERCISE STRESS ECG (WITHOUT IMAGING) Cardiology Routine Tachycardia SOB (shortness of breath) Palpitations 1 Occurrences starting 11/25/2023 until 11/24/2024 [facility] Work Phone: Comment on above: 1 Occurrences starti ng 11/25/2023 until 11/24/2024 End: 12-24-2023 KIERRA SCREENING W KEZIA KIERRA SCREENING W KEZIA Radiology Routine Malignant neoplasm of upper-outer quadrant of right breast in female, estrogen receptor positive (HCC) Encounter for screening mammogram for high-risk patient 1 Occurrences starting 11/24/2022 until 12/24/2023 [facility] Work Phone: Comment on above: 1 Occurrences starti ng 11/24/2022 until 12/24/2023 Mastopexy MASTOPEXY Person al history of malignant neoplasm of breast [facility] OUTSIDE VENDOR CARDI AC OUTPATIENT EXTENDED RHYTHM RECORDING (WITHOUT TELEMETRY) OUTSIDE VENDOR CARDIAC OUTPATIENT EXTENDED RHYTHM RECORDING (WITHOUT TELEMETRY) Holter Routine Tachycardia SOB (shortness of breath) Palpitations Ordered: 11/25/2023 [facility] Comment on above: Ordered: 11/25/2023 Patient referral [facility] Work Phone: Revision reconstruct ed breast REVISION BREAST RECONSTRUCTION Personal history of malignant neoplasm of breast [facility] SURG PATH REQUEST [facility] Comment on above: Release Upon Orderin g for 1 Occurrences starting 05/27/2022 End: 10-03-2025 Urinalysis complete panel - Urine URINALYSIS, WITH MICROSCOPIC Lab Routine Dysuria Recurrent UTI (urinary tract infection) Once per week for 50 Occurrences starting 10/03/2024 until 10/03/2025 [facility] Comment on above: Once per week for 50 Occurrences starting 10/03/2024 until 10/03/2025 End: 03-21-2021 XR ELBOW LEFT (MIN 3 VIEWS) XR ELBOW LEFT (MIN 3 VIEWS) Imaging Routine Once for 1 Occurrences starting 03/21/2021 until 03/21/2021 [employer] Work Phone: Comment on above: Once for 1 Occurrenc es starting 03/21/2021 until 03/21/2021 XR ELBOW LEFT (MIN 3 VIEWS) XR ELBOW LEFT (MIN 3 VIEWS) Imaging Routine 03/21/2021 9:30 AM EDT [employer] Work Phone: End: 12-24-2024 XR Knee - bilateral 4 Views XR KNEE GENERAL 4V AP BOTH/PA BOTH/LAT/MERC BILATERAL Radiology Routine Chronic pain of both knees 1 Occurrences starting 11/25/2023 until 12/24/2024 [facility] [facility] Comment on above: 1 Occurrences starti ng 11/25/2023 until 12/24/2024 XR Knee - bilateral 4 Views XR KNEE GENERAL 4V AP BOTH/PA BOTH/LAT/MERC BILATERAL Radiology Routine Chronic pain of both knees 11/25/2023 2:39 PM EDT [facility] End: 02-09-2026 XR Wrist - left PA and Lateral XR WRIST ORTH FX FU 2V PA/LAT LEFT Radiology Routine Wrist injury, left, initial encounter 1 Occurrences starting 01/10/2025 until 02/09/2026 [facility] Work Phone: Comment on above: 1 Occurrences starti ng 01/10/2025 until 02/09/2026 XR Wrist - left PA a nd Lateral XR WRIST ORTH FX FU 2V PA/LAT LEFT Radiology Routine Wrist injury, left, initial encounter 01/10/2025 3:34 PM EDT [facility] End: 03-02-2026 XR Wrist - left PA and Lateral and Oblique XR WRIST GENERAL 3V PA/LAT/OBL LEFT Radiology Routine Injury of left wrist, initial encounter 1 Occurrences starting 01/31/2025 until 03/02/2026 [facility] Work Phone: Comment on above: 1 Occurrences starti ng 01/31/2025 until 03/02/2026 XR Wrist - left PA a nd Lateral and Oblique XR WRIST GENERAL 3V PA/LAT/OBL LEFT Radiology Routine Injury of left wrist, initial encounter 02/01/2025 1:30 PM EDT [facility] Work Phone: [facility] Immunizations Immunization Date Immunization Notes Care Provider Jamshid cooper 07-06-2024 influenza, seasonal, injectable Ham Martinez DO Work Phone: [facility] 07-06-2024 influenza virus vaccine, unspecified formulation Helm Magana SCENERY BUILDER.SLICING MACHINE TENDER Work Phone: [facility] 04-29-2023 influenza, injectabl e, quadrivalent, contains preservative Becca Magana SCENERY BUILDER.SLICING MACHINE TENDER Work Phone: [facility] Work Phone: 04-29-2023 tetanus toxoid, redu karine diphtheria toxoid, and acellular pertussis vaccine, adsorbed Helm Magana SCENERY BUILDER.SLICING MACHINE TENDER Work Phone: [facility] Work Phone: 04-29-2023 influenza virus vaccine, unspecified formulation Ham Martinez DO Work Phone: [facility] 06-23-2022 influenza, injectabl e, quadrivalent, contains preservative Ham Martinez DO Work Phone: [facility] 07-01-2021 influenza, seasonal, injectable Dr. Ham Martinez Work Phone: [facility] 07-01-2021 influenza virus vaccine, unspecified formulation Jose Francisco Coughlin MD Work Phone: [facility] 12-03-2020 zoster vaccine recombinant Courtney Morataya APRN.[facility] Work Phone: [facility] Work Phone: 11-08-2020 COVID-19 vaccine, ag e 12+ yr (PFIZER-BIONTECH - PURPLE TOP) Courtney Morataya APRN.[facility] Work Phone: [facility] Work Phone: 10-18-2020 COVID-19 vaccine, ag e 12+ yr (PFIZER-BIONTECH - PURPLE TOP) Courtney Morataya APRN.[facility] Work Phone: [facility] Work Phone: 09-04-2020 zoster vaccine recombinant Courtney Morataya APRN.[facility] Work Phone: [facility] Work Phone: 05-01-2020 influenza, injectabl e, quadrivalent, preservative free Courtney Morataya APRN.SLICING MACHINE TENDER Work Phone: [facility] 12-16-2011 tetanus toxoid, redu karine diphtheria toxoid, and acellular pertussis vaccine, adsorbed Courtney Morataya APRN.SLICING MACHINE TENDER Work Phone: [facility] 04-27-2009 influenza virus vaccine, unspecified formulation Courtney Morataya APRN.[facility] Work Phone: [facility] Work Phone: Payers Date Payer Category Payer Self-pay [id number] 2011 [employer] [facility] [id number] 2011 Unknown ARACELI HUSAIN PPO [id number] 2011-Present [phone] [id number] [place] [address] PPO [id number] 2011 Unknown [id number] 2011 Unknown [id number] 1962 Unknown [id number] 2.16.840.1.968136.3.579.2 .594 1962 Unknown [id number] 2.16.840.1.002617.3.579.2 .594 1962 Unknown [id number] 2.16.840.1.649907.3.579.2 .594 1962 Unknown [id number] 2.16.840.1.948867.3.579.2 .594 1962 Unknown [id number] 2.16.840.1.203383.3.579.2 .594 1962 Unknown [id number] 2.16.840.1.648270.3.579.2 .594 1962 Unknown [id number] 2.16.840.1.947941.3.579.2 .594 1962 Unknown [id number] 2.16.840.1.985163.3.579.2 .594 1962 Unknown [id number] 2.16.840.1.722731.3.579.2 .594 1962 Unknown [id number] 2.16840.1.623373.3.579.2 .594 1962 Unknown [id number] 2.16.840.1.114199.3.579.2 .594 1962 Unknown [id number] 2.16840.1.452485.3.579.2 .594 1962 Unknown [id number] 2.840.1.294106.3.579.2 .594 1962 Unknown [id number] 2.16840.1.664741.3.579.2 .594 1962 Unknown [id number] 2.16.840.1.046080.3.579.2 .594 1962 Unknown [id number] 2.16840.1.745685.3.579.2 .594 Unknown [id number] 2.16840.1.379899.3.579.2 .462 Unknown [id number] 2.840.1.026089.3.579.2 .462 Unknown [id number] 2.16840.1.104672.3.579.2 .462 Unknown [id number] [id number] .462 Social History Date Type Detail Facility Start: 03-21-2021 End: 06-23-2022 Tobacco smoking status MTIS Never smoker [facility] Start: 03-21-2021 End: 06-23-2022 Tobacco use and exposure Never used [facility] Start: 1960 Sex Assigned At Not on file [facility] [employer] Work Phone: Start: 01-06-2021 End: 06-23-2022 Exposure to SARS-CoV-2 (event) Not sure [facility] Start: 10-24-2021 End: 02-01-2025 Alcohol intake Current drinker of alcohol (finding) [facility] Start: 06-04-2020 End: 07-30-2020 History SDOH Alcohol Frequency 3 [facility] Start: 07-30-2020 History SDOH Alcohol Std Drinks 1 [facility] Start: 07-30-2020 History SDOH Social Connections Phone 4 [facility] Start: 07-30-2020 History SDOH Social Connections Get Together 5 [facility] Start: 07-30-2020 History SDOH Social Connections Buddhism 98 [facility] Start: 07-30-2020 History SDOH Physica l Activity MPS 2 [facility] Start: 07-30-2020 Education 12 [facility] Start: 07-30-2021 History SDOH Alcohol Comment social [facility] Start: 08-12-2022 End: 08-22-2022 Exposure to SARS-CoV-2 (event) Unable to assess [facility] Start: 10-20-2022 Tobacco smoking stat us NHIS Unknown if ever smoked [facility] Start: 11-16-2019 Non-smoker [facility] Start: 1960 Sex Assigned At Female [facility] Start: 07-30-2020 End: 05-02-2024 History of Social function [facility] Start: 07-30-2020 End: 05-02-2024 Social connection and isolation panel [facility] How often do you att end mosque or islam services? Patient refused [facility] Do you belong to any clubs or organizations such as mosque groups, unions, fraternal or athletic groups, or school groups? Yes [facility] Are you now , , , , never or living with a partner? [facility] How often to you hav e a drink containing alcohol? 2-4 times a month [facility] How many standard dr inks containing alcohol do you have on a typical day? 1 or 2 [facility] How often do you hav e 6 or more drinks on 1 occasion? Never [facility] How hard is it for y ou to pay for the very basics like food, housing, medical care, and heating Somewhat hard [facility] Do you feel stress - tense, restless, nervous, or anxious, or unable to sleep at night because your mind is troubled all the time - these days [OSQ] To some extent [facility] (I/We) worried wheth er (my/our) food would run out before (I/we) got money to buy more. Never true [facility] In the past 12 month s, was there a time when you were not able to pay the mortgage or rent on time? No [facility] Start: 08-09-2019 Gender identity Identifies as female gender (finding) [facility] Medical Equipment Procedure Code Equipment Code Equipment Origin al Text Equipment Identifier Dates Insertion, vascular access port PORT,POWER 8FR FDA Start: 11-18-2019 Javascript Developer Anastomo sis 3.5mm Ring Pin Protective Cover Jaw - [id number] Start: 08-13-2021 SUTURE,LIGA CLIP MED [id number] FDA Start: 10-11-2019 SUTURE,LIGA CLIP SM LT-100 FDA Start: 10-11-2019 SUTURE,LIGA CLIP SM LT-100 FDA Start: 10-11-2019 Goals Date Patient Goal Desired Activity /State Comment on above: Formatting of this n ote might be different from the original. Doreen will be compliant with incision/wound care as ordered by physician. Doreen will remain free of signs and symptoms of infection and knowledgeable of what/when/how to report concerns. Doreen and caregiver will be knowledgeable of who provides their dressing supplies and how to obtain them. [facility] provided Doreen and caregiver with drain education related to the above. Functional Status Date Assessment Result Facility 11-22-2014 Are you deaf, or do you have serious difficulty hearing No 11/22/2014 11:10 AM Brittani Salvador LPN No [facility] 11-22-2014 Are you blind, or do you have serious difficulty seeing, even when wearing glasses No 11/22/2014 11:10 AM Brittani Salvador LPN No [facility] 11-22-2014 Do you have serious difficulty walking or climbing stairs No 11/22/2014 11:10 AM Brittani Salvador LPN No [facility] 11-22-2014 Do you have difficul ty dressing or bathing No 11/22/2014 11:10 AM EDT Brittani Ray LPN No [facility] 11-22-2014 Because of a physica l, mental, or emotional condition, do you have difficulty doing errands alone such as visiting a physician's office or shopping No 11/22/2014 11:10 AM EDT Brittani Ray LPN No [facility] Mental Status Date Assessment Result Facility 11-22-2014 Because of a physica l, mental, or emotional condition, do you have serious difficulty concentrating, remembering, or making decisions No 11/22/2014 11:10 AM EDT Brittani Ray LPN No [facility] Clinical Notes 02-05-2021 to 02-09-2025 Telephone Encounter - Erika German RN - 02/09/2025 8:28 AM EDTTelephone Encounter - Erika German RN - 02/09/2025 8:28 AM EDTTelephone Encounter - Jazzy Shen MA - 02/08/2025 2:30 PM EDT Note Date & Type Note Facility 02-09-2025 Telephone encounter Note Pt returned call and given provider's message below with verbalized understanding. [facility] 02-09-2025 Miscellaneous Notes Pt returned call and given provider's message below with verbalized understanding. Left additional message to return call Jazzy Shen MA Left message to return call. Please make sure she knows that her labs look great and her urine culture did show E coli infection and needs to complete the antibiotic bactrim that was started last week Ham Martinez DO documented in this encounter [facility] 02-08-2025 Telephone encounter Note Left additional message to return call Jazzy Shen MA [facility] 02-06-2025 Telephone encounter Note Left message to return call. [facility] 02-06-2025 Telephone encounter Note Please make sure she knows that her labs look great and her urine culture did show E coli infection and needs to complete the antibiotic bactrim that was started last week Ham Martinez DO [facility] 02-03-2025 Telephone encounter Note PATIENT NOTIFIED OF INFORMATION [facility] 02-03-2025 Miscellaneous Notes PATIENT NOTIFIED OF INFORMATION Lft message to return call. The glucose in the CMP is not as accurate as the HgA1c. HgA1c is a better marker for diabetes concerns. With the HgA1c being normal, I am not concerned with the glucose. Also, if the CMP was not done completely fasting, this glucose level does not tell us much at all. Taisha Bess, ALISSA.SLICING MACHINE TENDER Spoke with pt gave information provided. Pt voices understanding. Asking about Glucose level? Please call patient and let her know that lab work results look fantastic! No concerns. UA does show concern for likely UTI. Is patient symptomatic? I have sent over bactrim BID x 7 days to pharmacy. Still waiting on urine culture results -- we will let her know if based on these results, we need to change regimen. Thank you, Taisha Bess APRN.SYL The following approved medication requests have been transmitted electronically. Requested Prescriptions Signed Prescriptions Disp Refills sulfamethoxazole-trimethoprim (BACTRIM DS) 800-160 mg per tablet 14 tablet 0 Sig: Take 1 tablet by mouth two times a day for 7 days. Authorizing Provider: TAISHA BESS APRN.SYL documented in this encounter [facility] 02-02-2025 Telephone encounter Note Lft message to return call. [facility] 02-02-2025 Telephone encounter Note The glucose in the CMP is not as accurate as the HgA1c. HgA1c is a better marker for diabetes concerns. With the HgA1c being normal, I am not concerned with the glucose. Also, if the CMP was not done completely fasting, this glucose level does not tell us much at all. Taisha Bess APRN.SLICING MACHINE TENDER [facility] 02-02-2025 Telephone encounter Note Spoke with pt gave information provided. Pt voices understanding. Asking about Glucose level? T [facility] 02-02-2025 Telephone encounter Note Please call patient and let her know that lab work results look fantastic! No concerns. UA does show concern for likely UTI. Is patient symptomatic? I have sent over bactrim BID x 7 days to pharmacy. Still waiting on urine culture results -- we will let her know if based on these results, we need to change regimen. Thank you, Taisha Bess APRN.SYL The following approved medication requests have been transmitted electronically. Requested Prescriptions Signed Prescriptions Disp Refills sulfamethoxazole-trimethoprim (BACTRIM DS) 800-160 mg per tablet 14 tablet 0 Sig: Take 1 tablet by mouth two times a day for 7 days. Authorizing Provider: TAISHA BESS APRN.SLICING MACHINE TENDER T [facility] 02-01-2025 Note HNO ID: [id number] Author: ETHAN MCKEON, DO Service: ? Author Type: Physician Type: Progress Notes Filed: 02/01/2025 14:05 Note Text: Subjective Doreen Betancur is a 65-year-old female presenting for follow-up of a left wrist fracture. Doreen is 4 weeks post-injury and reports improvement in symptoms, though she still experiences discomfort, particularly when engaging in activities that require the use of both arms, such as gardening and lifting her grandchildren. She notes that the pain is not as severe as it was initially but is still present with certain movements. She describes a recent episode of aching pain after a day of increased activity with her grandchildren. 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 She was wearing her brace at the time and believes it prevented further injury. Musculoskeletal: (+) generalized myalgia, (+) back pain, (+) arm pain, (+) left wrist pain Neurological: (-) numbness, (-) paresthesia Psychiatric: (+) restless sleep Objective Last menstrual period 08/10/2012. General: No acute distress. MSK/Ext: Left wrist and hand: Able to give thumbs up; mild discomfort with thumb extension; normal strength; no evidence of nerve or vascular injury. Imaging: - (Today) X-ray: Demonstrates sclerosis at the fracture site consistent with stable healing; no evidence of nerve or vascular compromise. Assessment AND Plan 1. Traumatic closed nondisplaced fracture of distal end of left radius, with routine healing, subsequent encounter (S52.265D) Healing as expected at 4 weeks post-injury. X-ray shows sclerosis indicating stability. No signs of nerve or vascular injury. Mild discomfort with certain movements, but overall improvement noted. - Continue wearing the splint during active movements and at night if sleep is restless. - Begin removing the splint during sedentary activities such as watching TV or reading. - Encourage range of motion exercises including wrist flexion, extension, and thumb movements to prevent stiffness. - Follow-up in 3 weeks with repeat x-ray to assess further healing progress. Recording using [employer] software for draft documentation of the visit was discussed with the patient/authorized technical services representative; all questions welcomed and answered. Patient/authorized technical services representative agreed to proceed [facility] 02-01-2025 History of Presen t illness Narrative Subjective Doreen Betancur is a 65-year-old female presenting for follow-up of a left wrist fracture. Doreen is 4 weeks post-injury and reports improvement in symptoms, though she still experiences discomfort, particularly when engaging in activities that require the use of both arms, such as gardening and lifting her grandchildren. She notes that the pain is not as severe as it was initially but is still present with certain movements. She describes a recent episode of aching pain after a day of increased activity with her grandchildren. 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 She was wearing her brace at the time and believes it prevented further injury. Musculoskeletal: (+) generalized myalgia, (+) back pain, (+) arm pain, (+) left wrist pain Neurological: (-) numbness, (-) paresthesia Psychiatric: (+) restless sleep Objective Last menstrual period 08/10/2012. General: No acute distress. MSK/Ext: Left wrist and hand: Able to give thumbs up; mild discomfort with thumb extension; normal strength; no evidence of nerve or vascular injury. Imaging: - (Today) X-ray: Demonstrates sclerosis at the fracture site consistent with stable healing; no evidence of nerve or vascular compromise. Assessment & Plan 1. Traumatic closed nondisplaced fracture of distal end of left radius, with routine healing, subsequent encounter (S52.967L) Healing as expected at 4 weeks post-injury. X-ray shows sclerosis indicating stability. No signs of nerve or vascular injury. Mild discomfort with certain movements, but overall improvement noted. - Continue wearing the splint during active movements and at night if sleep is restless. - Begin removing the splint during sedentary activities such as watching TV or reading. - Encourage range of motion exercises including wrist flexion, extension, and thumb movements to prevent stiffness. - Follow-up in 3 weeks with repeat x-ray to assess further healing progress. Recording using [employer] software for draft documentation of the visit was discussed with the patient/authorized technical services representative; all questions welcomed and answered. Patient/authorized technical services representative agreed to proceed documented in this encounter [facility] 02-01-2025 History of Presen t illness Narrative Radiology Service Progress Note PATIENT NAME: Doreen Betancur DATE OF SERVICE: February 01, 2025 TIME: 3:57 PM PATIENT IDENTITY VERIFICATION COMPLETED USING TWO (2) IDENTIFIERS: Name and Date of confirmed by patient verbally. FALL SCREENING: Has the patient had 2 falls in the last year or 1 fall with injury or currently using an Ambulatory Assistive Device (Walker, Cane, Wheelchair, Crutches, etc.)? Yes, Patient High Risk for Falls What interventions were put in place to prevent falls during this visit? Increased Observations by Caregivers PATIENT GENDER DATA: Assigned female at . status: : No status: N/A PATIENT RELEVANT IMPLANT DATA REVIEWED: Not Applicable PATIENT PRESENTS WITH AN IMPLANTABLE OR ATTACHED TESTER/LIFT TRUCKER: No RADIOLOGY DEPARTMENT: General X-ray: Exam(s) Completed: Upper Extremity X-Ray(s): Wrist, left PERIPHERAL IV DATA: Not applicable SIGNED BY: RT Rebecca(Elliott) February 01, 2025 3:57 PM documented in this encounter [facility] 02-01-2025 Note HNO ID: [id number] Author: KIRSTIN PINEDA RT(R) Service: ? Author Type: Technologist Type: Progress Notes Filed: 02/01/2025 15:57 Note Text: Radiology Service Progress Note PATIENT NAME: Doreen Betancur DATE OF SERVICE: February 01, 2025 TIME: 3:57 PM PATIENT IDENTITY VERIFICATION COMPLETED USING TWO (2) IDENTIFIERS: Name and Date of confirmed by patient verbally. FALL SCREENING: Has the patient had 2 falls in the last year or 1 fall with injury or currently using an Ambulatory Assistive Device (Walker, Cane, Wheelchair, Crutches, etc.)? Yes, Patient High Risk for Falls What interventions were put in place to prevent falls during this visit? Increased Observations by Caregivers PATIENT GENDER DATA: Assigned female at . status: : No status: N/A PATIENT RELEVANT IMPLANT DATA REVIEWED: Not Applicable PATIENT PRESENTS WITH AN IMPLANTABLE OR ATTACHED TESTER/LIFT TRUCKER: No RADIOLOGY DEPARTMENT: General X-ray: Exam(s) Completed: Upper Extremity X-Ray(s): Wrist, left PERIPHERAL IV DATA: Not applicable SIGNED BY: RT Rebecca(Elliott) February 01, 2025 3:57 PM [facility] 01-31-2025 Telephone encounter Note Prescription Refill Information The patient has been identified by name and date of : Yes Caregiver verified no other encounters exist for this prescription request: Yes Caregiver confirmed with patient/requestor that no other refills are due, in the near future, with this provider at this time: No The last office visit in the department: 01/10/25 Does the patient have a future office visit with this provider/department: Yes Requested Prescriptions Pending Prescriptions Disp Refills DULoxetine (CYMBALTA) 60 mg capsule 30 capsule 5 Sig: Take 1 capsule by mouth once daily. Malaika Greco MA January 31, 2025 11:10 AM [facility] 01-31-2025 Miscellaneous Notes Prescription Refill Information The patient has been identified by name and date of : Yes Caregiver verified no other encounters exist for this prescription request: Yes Caregiver confirmed with patient/requestor that no other refills are due, in the near future, with this provider at this time: No The last office visit in the department: 01/10/25 Does the patient have a future office visit with this provider/department: Yes Requested Prescriptions Pending Prescriptions Disp Refills DULoxetine (CYMBALTA) 60 mg capsule 30 capsule 5 Sig: Take 1 capsule by mouth once daily. Malaika Greco MA January 31, 2025 11:10 AM documented in this encounter [facility] 01-10-2025 Note HNO ID: [id number] Author: ETHAN MCKEON, DO Service: ? Author Type: Physician Type: Progress Notes Filed: 01/10/2025 16:05 Note Text: Subjective Doreen Betancur is a 64-year-old female presenting for follow-up of a right wrist injury sustained 9 days ago. Doreen reports a right wrist injury sustained 9 days ago while pulling a hose out of a milk house. The hose became kinked, causing her to lose balance and fall backward. She was evaluated at urgent care, where an x-ray was performed. The x-ray did not show a definitive fracture, but a subtle irregularity was noted, and she was advised to treat it as a fracture. Doreen has been wearing a thumb spica splint since the injury. She reports that the pain is localized to the right wrist and is described as an ache. The pain is exacerbated by movement and alleviated by wearing the splint. She notes that the pain is not as severe today as it has been in the past. Doreen mowed the lawn yesterday for a couple of hours using a Ventrac mower, which requires the use of both hands. She wore the splint during this activity and did not report any significant increase in pain. Doreen removes the splint only when showering and describes it as not the greatest, but doing its job. She denies any pain in the thumb or other areas of the wrist. Doreen reports being a restless sleeper and has been wearing the splint at night to prevent further injury. She denies any other injuries or issues related to the fall. Constitutional: (+) restless sleep Musculoskeletal: (+) right wrist pain Objective Last menstrual period 08/10/2012. General: No acute distress. MSK/Ext: Tenderness to palpation over the right wrist; no pain with palpation of the right forearm. Imaging: - (Today) Right Wrist X-ray: - Findings: Subtle irregularity over radial styloid - No displacement or malalignment - Right Wrist X-ray: - Findings: Possible subtle fracture at the nutrient vessel site - No displacement or malalignment Assessment AND Plan 1. Wrist injury, left, initial encounter (S69.92XA) Injury occurred approximately 9 days ago due to a fall while pulling a hose. Initial X-ray showed a potential subtle fracture or nutrient vessel irregularity. Current examination reveals tenderness in the area corresponding to the irregularity seen on the X-ray. No signs of misalignment or displacement. - Ordered repeat X-ray today to assess for healing changes. - Continue using thumb spica splint to immobilize and protect the wrist. - Advised patient to use pain as a guide for activity; avoid movements that cause pain. - Patient can remove the splint for washing and airing out the skin. - Recommended wearing the splint during sleep due to restless sleeping habits. - Scheduled follow-up in 3 weeks with repeat X-ray to evaluate healing progress. Recording using [employer] software for draft documentation of the visit was discussed with the patient/authorized technical services representative; all questions welcomed and answered. Patient/authorized technical services representative agreed to proceed [facility] 01-10-2025 History of Presen t illness Narrative Subjective Doreen Betancur is a 64-year-old female presenting for follow-up of a right wrist injury sustained 9 days ago. Doreen reports a right wrist injury sustained 9 days ago while pulling a hose out of a milk house. The hose became kinked, causing her to lose balance and fall backward. She was evaluated at urgent care, where an x-ray was performed. The x-ray did not show a definitive fracture, but a subtle irregularity was noted, and she was advised to treat it as a fracture. Doreen has been wearing a thumb spica splint since the injury. She reports that the pain is localized to the right wrist and is described as an ache. The pain is exacerbated by movement and alleviated by wearing the splint. She notes that the pain is not as severe today as it has been in the past. Doreen mowed the lawn yesterday for a couple of hours using a Ventrac mower, which requires the use of both hands. She wore the splint during this activity and did not report any significant increase in pain. Doreen removes the splint only when showering and describes it as not the greatest, but doing its job. She denies any pain in the thumb or other areas of the wrist. Doreen reports being a restless sleeper and has been wearing the splint at night to prevent further injury. She denies any other injuries or issues related to the fall. Constitutional: (+) restless sleep Musculoskeletal: (+) right wrist pain Objective Last menstrual period 08/10/2012. General: No acute distress. MSK/Ext: Tenderness to palpation over the right wrist; no pain with palpation of the right forearm. Imaging: - (Today) Right Wrist X-ray: - Findings: Subtle irregularity over radial styloid - No displacement or malalignment - Right Wrist X-ray: - Findings: Possible subtle fracture at the nutrient vessel site - No displacement or malalignment Assessment & Plan 1. Wrist injury, left, initial encounter (S69.92XA) Injury occurred approximately 9 days ago due to a fall while pulling a hose. Initial X-ray showed a potential subtle fracture or nutrient vessel irregularity. Current examination reveals tenderness in the area corresponding to the irregularity seen on the X-ray. No signs of misalignment or displacement. - Ordered repeat X-ray today to assess for healing changes. - Continue using thumb spica splint to immobilize and protect the wrist. -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 in the right breast. LEFT BREAST: The breast tissue is heterogeneously dense with no background enhancement. There are no abnormal enhancing masses or areas of non-mass enhancement in the left breast. There are no enlarged or abnormal lymph nodes. There is no abnormality in the visualized regions of the chest or liver. IMPRESSION: There is a known malignancy in the right breast. Surgical consultation is recommended as well as radiation oncology and medical oncology consultation. Short-term six-month follow-up mammogram is recommended if the patient and the surgeon opt to do a lumpectomy. Underwent right modified radical mastectomy along with right axillary lymph node dissection on 10/11/2019. Pathology: FROZEN SECTION DIAGNOSIS A. Right axillary sentinel lymph nodes, biopsy: Two out of two lymph nodes negative for carcinoma. MICROSCOPIC DIAGNOSIS A. Right axillary sentinel lymph nodes, biopsy: Three out of three lymph nodes, negative for metastatic carcinoma. B. Right breast, mastectomy: Invasive poorly differentiated ductal carcinoma. See cancer check list below. COMMENT INVASIVE BREAST CANCER SUMMARY: Procedure: Mastectomy Specimen: Type: Total breast Size: 17 x 15 x 5 cm Laterality: Right breast Invasive Tumor: Size of tumor: 2.5 x 2 x 2 cm Focality: Single focus of invasive tumor Histologic type: Invasive ductal carcinoma. Histologic grade (Sri grade): Glandular/tubular differentiation score: 3 Nuclear pleomorphism score: 3 Mitotic count score: 3 Overall grade: 3 (score of 9/9) Lymph-vascular invasion: Not identified Ductal Carcinoma In Situ: Not identified Lobular Carcinoma In Situ: Not identified Tumor extension: Skin: Free of carcinoma Nipple: Free of carcinoma Skeletal muscle: Free of carcinoma Margins Involved by Invasive Carcinoma: None Distance from closest margin: 1.5 mm from superior margin Margins Involved by In Situ Carcinoma: Not applicable Lymph Nodes: Number of sentinel lymph nodes examined: 3 Total number of lymph nodes examined: 10 One non-sentinel lymph node with macrometastatic carcinoma (2.1 cm in greatest dimension). See specimen A for sentinel lymph nodes. Microcalcifications: Not identified Treatment Effect: Unknown Additional Pathologic Findings: Extensive tumor necrosis Ancillary Studies: Previously performed on same tumor ([id number]) ER: positive (4%, dim) ID: negative (0%) Pow2pkz: negative (0) Clinical History: Mass of breast Pathologic Stage: pT2 N1a Mx Previous therapy: 1) AC followed by T 2) Radiation at [facility]. Current therapy: Femara Began aromasin in 2019. Stopped December 2021 d/t hand pain/stiffness. Pt. s/p R JAY JAY 2021 complicated by abd hematoma-I&D 09/17/21. Surgery done at [facility]. Pt. has surgery scheduled [id number] with plastics ([facility])-L mastopexy, R revision. No new concerns today. Appetite:Good. Wt. up 2# since fall 2023. Energy level:Pretty good. Denies fevers or recent illness. Resp:denies cough or sob Cardiac:denies chest pain/palpitations GI:denies abd pain It sometimes feels hard., denies n/v, moving bowels regularly-pt has never had colonoscopy :denies dysuria/hematuria Extrem:denies pain, hand stiffness/pain resolved when stopped aromasin, knee stiffness on femara Endo:hot flashes I'm just hot. they do not wake pt. at night Neuro:neuropathy resolved to toes/feet Skin:denies rashes/lesions Heme:denies bleeding The ROS is otherwise negative. Past medical history, appointments, medications, allergies reviewed. No changes. EXAM: BP 137/92 Pulse 87 Temp 36.4 C (97.6 F) (Temporal) Wt 74.1 kg (163 lb 5.8 oz) LMP 08/10/2012 SpO2 99% BMI 28.94 kg/m APPEARANCE Well appearing, alert, in no acute distress, well-hydrated, well nourished. HEART RRR with normal S1 and S2, no murmurs LUNG clear to auscultation BREAST FEMALE R recon JAY JAY, no mass/nodule, L no mass/nodule LYMPH NODES No cervical lymphadenopathy, No supraclavicular lymphadenopathy, and No axillary lymphadenopathy. ABDOMEN bowel sounds normoactive, soft, non-tender EXTREMITIES No edema NEURO Awake, alert and oriented x 3, Normal gait, and No involuntary motions. SKIN Skin color, texture, turgor normal, no suspicious rashes or lesions ASSESSMENT/PLAN: 1. Malignant neoplasm of upper-outer quadrant of right breast in female, estrogen receptor positive (HCC) - ICD9: 174.4, V86.0, ICD10: C50.411, Z17.0 (primary diagnosis) Originally diagnosed with a T1c N0 MX, ER+; 50%, ID-<5% and HER-2 overexpressed (FISH average gene copy #13.2 HER-2 to CEP 17 ratio 5.8) infiltrating ductal carcinoma of the right breast. Received 6 cycles of paclitaxel even on an every two-week basis along with growth factor support (CALGB 07697) and trastuzumab. New pT2 pN1a ER 4%, ID negative, HER2 negative (0 on IHC) stage IIB infiltrating ductal carcinoma the right breast. Genetic testing negative. - No concerning findings on exam. - Tolerated aromasin poorly d/t hand stiffness. - Tolerating femara fair d/t knee/joint stiffness. Pt. would like to continue. - Continue femara. Rx sent. - Pt. declines colonoscopy. - Mammogram due March 2025. - Follow up in 6 months. - Pt. aware to call office with any questions/concerns. The patient indicates understanding of these issues and agrees with the plan. All documentation from previous visit of 05/25/24-Dr. Lopez/myself was copied and pasted, documentation has been reviewed and edited as necessary for today's visit. Becca Magana APRN.SLICING MACHINE TENDER documented in this encounter [facility] 10-03-2024 Instructions Ham Martinez DO - 10/03/2024 10:16 AM EDT Continue same dose of Zoloft at 2 per day until OCTOBER Then dose to 1.5 tablets per day starting week of October and see if this works well for Spring and Summer Recheck labs end of summer documented in this encounter [facility] 10-03-2024 Note HNO ID: [id number] Author: HAM MARTINEZ DO Service: ? Author Type: Physician Type: Progress Notes Filed: 10/03/2024 17:09 Note Text: CC: Doreen Betancur is a 64 year old female who presents to the office for follow up HPI: Recently with UTI with E coli in Jun 2024, otherwise doing well HPL, was on Zetia in the past. 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 Mood, has stressors due to helping her daughter whom has a lot of mental health concerns. No SI or HI. Currently is taking 100 mg of the Zoloft, wondering if able to taper down some with the spring/summer weather coming and does better managing her mood when she is able to be outside with sun and farm chores. PAST MEDICAL HISTORY Diagnosis Date Abnormality of ascending aorta 05/2023 borderline dilation 3.8 cm Anxiety Malignant neoplasm of breast (female), unspecified site 05/27/2005 right breast Vitamin D deficiency PAST SURGICAL HISTORY Procedure Laterality Date BREAST RECONSTRUCTION Right DELIVERY ONLY times four COLONOSCOPY FLX DX W/COLLJ SPEC WHEN PFRMD 12/11/2014 Repeat 2024 DILATION AND CURETTAGE DXAND/THER NONOBSTETRIC LAPAROSCOPY W/RMVL ADNEXAL STRUCTURES 07/05/2013 Laprascopic BSO h/o breast ca LIG/TRNSXJ FLP TUBE ABDL/VAG APPR UNI/BI 1998(?) MAST MODF RAD W/AX LYMPH NOD W/WO PECT/VICKY MIN Right 10/11/2019 Dr. Arceo, [facility] PAST SURGICAL HISTORY OF 06/17/2005 lumpectomy and removal of lymph nodes PAST SURGICAL HISTORY OF 2017 Laser surgery vaginal Current Outpatient Medications Medication Sig sertraline (ZOLOFT) 50 mg tablet Take 1.5 tablets by mouth once daily. DULoxetine (CYMBALTA) 60 mg capsule Take 1 capsule by mouth once daily. levothyroxine (LEVOXYL) 75 mcg tablet Take 1 tablet by mouth once daily. Take daily in the morning before eating, Take on empty stomach. For Thyroid lansoprazole (PREVACID) 30 mg capsule Take 1 capsule by mouth daily before breakfast. For acid reflux, 1/2 hr before meal. ezetimibe (ZETIA) 10 mg tablet Take 1 tablet by mouth once daily. At supper or bedtime meclizine (ANTIVERT) 12.5 mg tab Take 1 tablet by mouth every 6 hours as needed (dizziness). letrozole (FEMARA) 2.5 mg tablet Take 1 tablet by mouth once daily. triamcinolone acetonide (KENALOG) 0.5 % cream Apply 1 application to affected area two times a day. For rash/itching. Apply sparingly. Avoid face/skin fold. clonazePAM (KLONOPIN) 0.5 mg tablet Take 1 tablet by mouth twice daily as needed for anxiety for up to 30 days. cholecalciferol (VITAMIN D3) 5,000 unit tab Take 5,000 Units by mouth once daily. MAGNESIUM ORAL Take 1 tablet by mouth once daily. Estradiol (VAGIFEM) 10 mcg vaginal tablet Use 10 mcg vaginally three times a week. lisinopril (ZESTRIL, PRINIVIL) 10 mg tablet Take 1 tablet by mouth once daily. As needed for BLOOD PRESSURE >140/90 vitamin b complex capsule Take 1 capsule by mouth once daily. Lactobacillus acidophilus (PROBIOTIC ORAL) Take 1 capsule by mouth once daily. No current facility-administered medications for this visit. ALLERGIES Allergen Reactions Penicillins Intolerance Unknown reaction as a child Dextromethorphan Mental Status Change anxiety Macrobid [Nitrofura* Hot, cold, achy Phenylephrine Intolerance anxiety Prednisone Other: See Comments Heart palpitations Adhesive Tape (Kassie* Intolerance Erythema after ribbon tape Social History Tobacco Use Smoking status: Never Smokeless tobacco: Never Vaping Use Vaping status: Never Used Substance Use Topics Alcohol use: Yes Comment: seldom Drug use: No ROS: See HPI PE: BP 130/80 Pulse 80 Temp (Src) 97 (Temporal) Resp 16 Wt 167 lb (75.8kg) LMP 08/10/2012 Gen: AANDOX3, NAD, non-toxic appearing HEENT: PERRLA, EOMs intact b/l, nares without drainage, pharynx without erythema, exudate, lesions, or drainage. Uvula midline. Neck: No LAD, no thyromegaly, no meningismus. CV: RRR, no murmur Lungs: CTA b/l, no wheezing Skin: No rashes, lesions, or wounds on exposed skin. No edema, normal pulses ASSESSMENT/PLAN: 1. Dysuria - ICD9: 788.1, ICD10: R30.0 (primary diagnosis) recurrent - Patient education for prevention given - BACTERIAL CULTURE, URINE - URINALYSIS, WITH MICROSCOPIC 2. Anxiety and depression - ICD9: 300.00, 311, ICD10: F41.9, F32.A Taper down on zoloft to 75 mg a day (1.5 tablets)- if doing well on this x 4-6 weeks, then ok to decrease dose to 1 tablet of 50 mg a day No SI or HI - SERTRALINE 50 MG TABLET 3. Recurrent UTI (urinary tract infection) - ICD9: 599.0, ICD10: N39.0 Hx of, no current symptoms - BACTERIAL CULTURE, URINE - URINALYSIS, WITH MICROSCOPIC 4. Hyperlipidemia, mixed - ICD9: 272.2, ICD10: E78. (more content not included)... [facility] 10-03-2024 History of Presen t illness Narrative CC: Doreen Betancur is a 64 year old female who presents to the office for follow up HPI: Recently with UTI with E coli in Jun 2024, otherwise doing well HPL, was on Zetia in the past. 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 Mood, has stressors due to helping her daughter whom has a lot of mental health concerns. No SI or HI. Currently is taking 100 mg of the Zoloft, wondering if able to taper down some with the spring/summer weather coming and does better managing her mood when she is able to be outside with sun and farm chores. PAST MEDICAL HISTORY Diagnosis Date Abnormality of ascending aorta 05/2023 borderline dilation 3.8 cm Anxiety Malignant neoplasm of breast (female), unspecified site 05/27/2005 right breast Vitamin D deficiency PAST SURGICAL HISTORY Procedure Laterality Date BREAST RECONSTRUCTION Right DELIVERY ONLY times four COLONOSCOPY FLX DX W/COLLJ SPEC WHEN PFRMD 12/11/2014 Repeat 2024 DILATION & CURETTAGE DX&/THER NONOBSTETRIC LAPAROSCOPY W/RMVL ADNEXAL STRUCTURES 07/05/2013 Laprascopic BSO h/o breast ca LIG/TRNSXJ FLP TUBE ABDL/VAG APPR UNI/BI 1998(?) MAST MODF RAD W/AX LYMPH NOD W/WO PECT/VICKY MIN Right 10/11/2019 Dr. Arceo, [facility] PAST SURGICAL HISTORY OF 06/17/2005 lumpectomy and removal of lymph nodes PAST SURGICAL HISTORY OF 2018 Laser surgery vaginal Current Outpatient Medications Medication Sig sertraline (ZOLOFT) 50 mg tablet Take 1.5 tablets by mouth once daily. DULoxetine (CYMBALTA) 60 mg capsule Take 1 capsule by mouth once daily. levothyroxine (LEVOXYL) 75 mcg tablet Take 1 tablet by mouth once daily. Take daily in the morning before eating, Take on empty stomach. For Thyroid lansoprazole (PREVACID) 30 mg capsule Take 1 capsule by mouth daily before breakfast. For acid reflux, 1/2 hr before meal. ezetimibe (ZETIA) 10 mg tablet Take 1 tablet by mouth once daily. At supper or bedtime meclizine (ANTIVERT) 12.5 mg tab Take 1 tablet by mouth every 6 hours as needed (dizziness). letrozole (FEMARA) 2.5 mg tablet Take 1 tablet by mouth once daily. triamcinolone acetonide (KENALOG) 0.5 % cream Apply 1 application to affected area two times a day. For rash/itching. Apply sparingly. Avoid face/skin fold. clonazePAM (KLONOPIN) 0.5 mg tablet Take 1 tablet by mouth twice daily as needed for anxiety for up to 30 days. cholecalciferol (VITAMIN D3) 5,000 unit tab Take 5,000 Units by mouth once daily. MAGNESIUM ORAL Take 1 tablet by mouth once daily. Estradiol (VAGIFEM) 10 mcg vaginal tablet Use 10 mcg vaginally three times a week. lisinopril (ZESTRIL, PRINIVIL) 10 mg tablet Take 1 tablet by mouth once daily. As needed for BLOOD PRESSURE >140/90 vitamin b complex capsule Take 1 capsule by mouth once daily. Lactobacillus acidophilus (PROBIOTIC ORAL) Take 1 capsule by mouth once daily. No current facility-administered medications for this visit. ALLERGIES Allergen Reactions Penicillins Intolerance Unknown reaction as a child Dextromethorphan Mental Status Change anxiety Macrobid [Nitrofura* Hot, cold, achy Phenylephrine Intolerance anxiety Prednisone Other: See Comments Heart palpitations Adhesive Tape (Kassie* Intolerance Erythema after ribbon tape Social History Tobacco Use Smoking status: Never Smokeless tobacco: Never Vaping Use Vaping status: Never Used Substance Use Topics Alcohol use: Yes Comment: seldom Drug use: No ROS: See HPI PE: BP 130/80 Pulse 80 Temp (Src) 97 (Temporal) Resp 16 Wt 167 lb (75.8kg) LMP 08/10/2012 Gen: A&OX3, NAD, non-toxic appearing HEENT: PERRLA, EOMs intact b/l, nares without drainage, pharynx without erythema, exudate, lesions, or drainage. Uvula midline. Neck: No LAD, no thyromegaly, no meningismus. CV: RRR, no murmur Lungs: CTA b/l, no wheezing Skin: No rashes, lesions, or wounds on exposed skin. No edema, normal pulses ASSESSMENT/PLAN: 1. Dysuria - ICD9: 788.1, ICD10: R30.0 (primary diagnosis) recurrent - Patient education for prevention given - BACTERIAL CULTURE, URINE - URINALYSIS, WITH MICROSCOPIC 2. Anxiety and depression - ICD9: 300.00, 311, ICD10: F41.9, F32.A Taper down on zoloft to 75 mg a day (1.5 tablets)- if doing well on this x 4-6 weeks, then ok to decrease dose to 1 tablet of 50 mg a day No SI or HI - SERTRALINE 50 MG TABLET 3. Recurrent UTI (urinary tract infection) - ICD9: 599.0, ICD10: N39.0 Hx of, no current symptoms - BACTERIAL CULTURE, URINE - URINALYSIS, WITH MICROSCOPIC 4. Hyperlipidemia, mixed - ICD9: 272.2, ICD10: E78.2 Uncontrolled, she isn't able to tolerate Zetia due to muscle aches and joint pains - COMPREHENSIVE METABOLIC PANEL - COMPLETE BLOOD COUNT - THYROID STIMULATING HORMONE - LIPID PANEL BASIC 5. Hyperglycemia - ICD9: 790.29, ICD10: R73.9 Recheck labs asymptomatic - HEMOGLOBIN A1C Ham Martinez DO Return if no improvement. Follow up with Ham Martinez DO. To ER if develops chest pain, shortness of breath. Discussed risks, benefits, alternatives, and potential side effects of medications. Patient/Guardian expressed understanding and agreed with the plan. See patient instructions. Ham Martinez DO [address] [place] [address] documented in this encounter [facility] 08-10-2024 Telephone encounter Note Pt. informed. [facility] 08-10-2024 Miscellaneous Notes Pt. informed. No, okay to continue her same dosing of vitamin D Ham Martinez DO Spoke with pt gave information provided. Pt voices understanding. She states is already taking 2000 units of vitamin d3 a day so you want to have that increased by 1000 units? Please let her know that her bone density shows IMPRESSION: THE LOWEST T-SCORE IS -2.0 IN THE LEFT HIP 1) DIAGNOSIS (based on BMD alone): OSTEOPENIA BMD is showing some beginning bone mass loss (osteopenia), which may increase the risk of insufficiency fractures. I suggest 2385-1298 mg of Calcium citrate into 2 doses daily as well as at least 1000 units of Vitamin D3 daily. Weight bearing exercise, if not already doing, and f/u exam in 2 years for bone density. Ham Martinez DO documented in this encounter [facility] 08-10-2024 Telephone encounter Note No, okay to continue her same dosing of vitamin D Ham Martinez DO [facility] 08-10-2024 Telephone encounter Note Spoke with pt gave information provided. Pt voices understanding. She states is already taking 2000 units of vitamin d3 a day so you want to have that increased by 1000 units? [facility] 08-10-2024 Telephone encounter Note Please let her know that her bone density shows IMPRESSION: THE LOWEST T-SCORE IS -2.0 IN THE LEFT HIP 1) DIAGNOSIS (based on BMD alone): OSTEOPENIA BMD is showing some beginning bone mass loss (osteopenia), which may increase the risk of insufficiency fractures. I suggest 6011-9308 mg of Calcium citrate into 2 doses daily as well as at least 1000 units of Vitamin D3 daily. Weight bearing exercise, if not already doing, and f/u exam in 2 years for bone density. Ham Martinez DO [facility] 08-04-2024 History of Presen t illness Narrative Radiology Service Progress Note PATIENT NAME: Doreen Betancur DATE OF SERVICE: August 04, 2024 TIME: 10:09 AM PATIENT IDENTITY VERIFICATION COMPLETED USING TWO (2) IDENTIFIERS: Name and Date of confirmed by patient verbally. FALL SCREENING: Has the patient had 2 falls in the last year or 1 fall with injury or currently using an Ambulatory Assistive Device (Walker, Cane, Wheelchair, Crutches, etc.)? No PATIENT GENDER DATA: Female. status: : No status: NO. PATIENT RELEVANT IMPLANT DATA REVIEWED: Not Applicable PATIENT PRESENTS WITH AN IMPLANTABLE OR ATTACHED TESTER/LIFT TRUCKER: No RADIOLOGY DEPARTMENT: Bone Density PERIPHERAL IV DATA: Not applicable SIGNED BY: ASHLYN Villanueva) August 04, 2024 10:09 AM documented in this encounter [facility] 08-04-2024 Note HNO ID: [id number] Author: TINA BACA RT(R) Service: ? Author Type: Technologist Type: Progress Notes Filed: 08/04/2024 10:18 Note Text: Radiology Service Progress Note PATIENT NAME: Doreen Betancur DATE OF SERVICE: August 04, 2024 TIME: 10:09 AM PATIENT IDENTITY VERIFICATION COMPLETED USING TWO (2) IDENTIFIERS: Name and Date of confirmed by patient verbally. FALL SCREENING: Has the patient had 2 falls in the last year or 1 fall with injury or currently using an Ambulatory Assistive Device (Walker, Cane, Wheelchair, Crutches, etc.)? No PATIENT GENDER DATA: Female. status: : No status: NO. PATIENT RELEVANT IMPLANT DATA REVIEWED: Not Applicable PATIENT PRESENTS WITH AN IMPLANTABLE OR ATTACHED TESTER/LIFT TRUCKER: No RADIOLOGY DEPARTMENT: Bone Density PERIPHERAL IV DATA: Not applicable SIGNED BY: RT Rich(R) August 04, 2024 10:09 AM [facility] 07-07-2024 Telephone encounter Note Spoke with pt and information listed below given. Pt verbalizes understanding. Chrystal Liu LPN [facility] 07-07-2024 Miscellaneous Notes Spoke with pt and information listed below given. Pt verbalizes understanding. Chrystal Liu LPN Phoned patient left message to return call and ask to speak to a nurse. The following approved medication requests have been transmitted electronically. Requested Prescriptions Signed Prescriptions Disp Refills ciprofloxacin HCl (CIPRO) 500 mg tablet 20 tablet 0 Sig: Take 1 tablet by mouth two times a day for 10 days. Authorizing Provider: HAM MARTINEZ DO Patient phoned to ask pcp if you are going to send an AB to her pharmacy for her urine test results? Please advise patient. documented in this encounter [facility] 07-07-2024 Telephone encounter Note Phoned patient left message to return call and ask to speak to a nurse. [facility] 07-06-2024 Telephone encounter Note The following approved medication requests have been transmitted electronically. Requested Prescriptions Signed Prescriptions Disp Refills ciprofloxacin HCl (CIPRO) 500 mg tablet 20 tablet 0 Sig: Take 1 tablet by mouth two times a day for 10 days. Authorizing Provider: HAM MARTINEZ DO [facility] 07-06-2024 Telephone encounter Note Patient phoned to ask pcp if you are going to send an AB to her pharmacy for her urine test results? Please advise patient. [facility] 07-06-2024 Note HNO ID: [id number] Author: HAM MARTINEZ DO Service: ? Author Type: Physician Type: Progress Notes Filed: 07/06/2024 20:57 Note Text: CC: Doreen Betancur is a 64 year old female who presents to the office for followu p HPI: At last OFFICE VISIT Mar 2024 Still struggling with stiffness in joints and aching in the muscles, diffusely. Has been occurring since being on chemotherapy as well as on Femara. Has at least 1 more year of this medication for hormone blockade- she is unsure if she will continue it further on. Hx of breast cancer x 2 separate episodes. Mood, currently taking zoloft 50 mg a day, wondering if dose needs to go up. Struggles mostly with her depression in the winter months. Does know about light box therapy as well that she can use. No SI or HI. Currently mood is doing well. BPPV, balance concerns. Will be having therapy on this in the next few weeks- has had to delay the vestibular PHYSICAL THERAPY since her truck hasn't been drivable and not able to get there. Currently Restless legs, leg cramping of lower legs and charley horse symptoms. B/l legs, comes and goes, mostly occurring at night. Recently with labs of normal potassium, sodium, magnesium levels. Unsure what is causing this Increased urinary urgency and frequency symptoms. Comes and goes the last few days. No fevers or chills or flank pain Soreness in her mouth, does have invisiline and recently some soreness in her throat. No obvious fevers or chills. No PND symptosm. This has been going on for 1 month Mood, stable, taking medications as prescribed. PAST MEDICAL HISTORY Diagnosis Date Abnormality of ascending aorta 05/2023 borderline dilation 3.8 cm Anxiety Malignant neoplasm of breast (female), unspecified site 05/27/2005 right breast Vitamin D deficiency PAST SURGICAL HISTORY Procedure Laterality Date BREAST RECONSTRUCTION Right DELIVERY ONLY times four COLONOSCOPY FLX DX W/COLLJ SPEC WHEN PFRMD 12/11/2014 Repeat 2024 DILATION AND CURETTAGE DXAND/THER NONOBSTETRIC LAPAROSCOPY W/RMVL ADNEXAL STRUCTURES 07/05/2013 Laprascopic BSO h/o breast ca LIG/TRNSXJ FLP TUBE ABDL/VAG APPR UNI/BI 1998(?) MAST MODF RAD W/AX LYMPH NOD W/WO PECT/VICKY MIN Right 10/11/2019 Dr. Arceo, [facility] PAST SURGICAL HISTORY OF 06/17/2005 lumpectomy and removal of lymph nodes PAST SURGICAL HISTORY OF 2018 Laser surgery vaginal Current Outpatient Medications Medication Sig DULoxetine (CYMBALTA) 60 mg capsule Take 1 capsule by mouth once daily. levothyroxine (LEVOXYL) 75 mcg tablet Take 1 tablet by mouth once daily. Take daily in the morning before eating, Take on empty stomach. For Thyroid lansoprazole (PREVACID) 30 mg capsule Take 1 capsule by mouth daily before breakfast. For acid reflux, 1/2 hr before meal. ezetimibe (ZETIA) 10 mg tablet Take 1 tablet by mouth once daily. At supper or bedtime sertraline (ZOLOFT) 50 mg tablet Take 1.5 tablets by mouth once daily. meclizine (ANTIVERT) 12.5 mg tab Take 1 tablet by mouth every 6 hours as needed (dizziness). letrozole (FEMARA) 2.5 mg tablet Take 1 tablet by mouth once daily. triamcinolone acetonide (KENALOG) 0.5 % cream Apply 1 application to affected area two times a day. For rash/itching. Apply sparingly. Avoid face/skin fold. clonazePAM (KLONOPIN) 0.5 mg tablet Take 1 tablet by mouth twice daily as needed for anxiety for up to 30 days. cholecalciferol (VITAMIN D3) 5,000 unit tab Take 5,000 Units by mouth once daily. MAGNESIUM ORAL Take 1 tablet by mouth once daily. Estradiol (VAGIFEM) 10 mcg vaginal tablet Use 10 mcg vaginally three times a week. lisinopril (ZESTRIL, PRINIVIL) 10 mg tablet Take 1 tablet by mouth once daily. As needed for BLOOD PRESSURE >140/90 vitamin b complex capsule Take 1 capsule by mouth once daily. Lactobacillus acidophilus (PROBIOTIC ORAL) Take 1 capsule by mouth once daily. No current facility-administered medications for this visit. ALLERGIES Allergen Reactions Penicillins Intolerance Unknown reaction as a child Dextromethorphan Mental Status Change anxiety Macrobid [Nitrofura* Hot, cold, achy Phenylephrine Intolerance anxiety Prednisone Other: See Comments Heart palpitations Adhesive Tape (Kassie* Intolerance Erythema after ribbon tape Social History Tobacco Use Smoking status: Never Smokeless tobacco: Never Vaping Use Vaping status: Never Used Substance Use Topics Alcohol use: Yes Comment: seldom Drug use: No ROS: See HPI PE: BP 136/80 Pulse 80 Temp (Src) 98.2 (Temporal) Resp 16 Wt 159 lb (72.1kg) LMP 08/10/2012 Gen: AANDOX3, NAD, non-toxic appearing HEENT: PERRLA, EOMs intact b/l, nares without drainage, pharynx without erythema, exudate, lesions, or drainage. Uvula midline. Neck: No LAD, no thyromegaly, no meningismus. CV: RRR, no murmur Lungs: CTA b/l, no wheezing Skin: No rashes, lesions, or wounds on exposed ski (more content not included)... [facility] 06-14-2024 Telephone encounter Note Started TE in pt's spouse's chart and routed to Provider. Pt made aware of this. Ilda Flynn MA [facility] 06-14-2024 Miscellaneous Notes Started TE in pt's spouse's chart and routed to Provider. Pt made aware of this. Ilda Flynn MA documented in this encounter [facility] 05-25-2024 History of Presen t illness Narrative Program_ID:[id number] Access Code: [email or web address] URL: [email or web address] Date: 05-25-2024 Prepared By: Jill Marcelo Program Notes Patient Education - cc BPPV Self Semont Maneuver Posterior Canal Episode Visit Count: 3 Therapist That Will Accept/Oversee The Plan Of Care: Jill Marcelo Start of Care Date: 04/13/24 Onset Date: 07/13/23 Plan of Care Certification Date: 05/25/24 Next Certification Due Date: 07/06/24 REHABILITATION AND SPORTS THERAPY PHYSICAL THERAPY PROGRESS REPORT PLAN OF CARE UPDATE: Assessment: Doreen Betancur demonstrates improvements in walking. The patient has progressed toward goals. Patient continues to present with impairments in ADL's, independence in exercise, overall function, patient reported outcome measures, and symptom management that interfere with walking, bed mobility (positional changes) . Current prognosis is Good due to: good support system/ coping skills, within-session changes, positive past response to therapy, acuteness of condition, current objective clinical presentation, good overall health status . The patient will benefit from continued skilled therapy services to meet the updated goals for this plan of care as noted below. Goals for Episode of Care: established 04/13/24 Goals updated on 05/25/2024. Patient will have negative positional testing for BPPV. -- NOT MET Patient will be independent with home exercise program and progression. -- PROGRESSING Patient will return to prior level of function with all activities of daily living with trace reports of dizziness. -- PROGRESSING Patient Goals: improve balance and resolve vertigo with laying down -- PROGRESSING Time Frame for Goals and Treatment : 07/06/24 Patient Goals: improve balance and resolve vertigo with laying down Planned Interventions, Frequency, and Duration: 1x/week, 6 weeks Total Number of Visits Planned: 6 Patient to be seen for Gait Training (25242), Self-long-term management (99334), Therapeutic activities (89149), Manual therapy (01716), Neuromuscular re-education (00763), Therapeutic exercise (08287), Canalith Repositioning Maneuvers (80781) PLAN FOR NEXT VISIT: assess symptom response to CRM SUBJECTIVE: Pt. fell while doing yard work 2 weeks. Denies dizziness leading up to this incident. Able to get herself up. Denies LOC or injury. About a week ago pt. was laid back in dentist chair and she felt vertigo with turning the head. Same symptoms with bed mobility since this incident. 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 Patient Goals: improve balance and resolve vertigo with laying down Functional Limitations: walking, bed mobility (positional changes) Pain: Pain Pain Level: 0 PROMIS Scales 05/25/2024 04/13/2024 08/05/2023 Higher is Better Phys Func - Score 51 (within normal limits) 53 (within normal limits) 51 (within normal limits) Phys Func - Percentile 54 62 54 Self-Eff Symptom - Score 49 (Average) 42 (Average) 48 (Average) Self-Eff Symptom - Percentile 46 21 42 T-scores: mean of general population = 50. 5 points is clinically meaningfully difference Percentiles provide an indication of how the patient's score ranks in relation to the general population. Higher percentile rankings indicate better function/quality of life. 50th percentile is the average of the general population and indicates half of respondents had a worse score. OBJECTIVE MEASURES WITH LEVEL OF FUNCTION: Positional Testing Right [place]-Hallpike: Symptomatic, With delay, Less than 60 seconds, Upbeat (counter clockwise torsional nystagmus) Left [place]-Hallpike: Symptomatic, Less than 60 seconds, No nystagmus (less symptomatic than R shawn hallpike and without nystagmus) Right Ear Down: Asymptomatic, No nystagmus Left Ear Down: No nystagmus, Asymptomatic TREATMENT: Neuromuscular Re-Education: 1: R and L shawn HP1x each - worse symptoms R 2: R and L ear down denies symptoms Skilled Intervention: Skilled judgment used to assess appropriate program for balance and coordination activity. Education in proprioceptive/kinesthetic awareness during dynamic activities. Patient education as noted. Self-Longterm Management: 1: semont CRM discussed and printout provided 2: discouraged repeat self manuevers within a day if symptoms do not improve 3: maintain head upright x 2 hours, sleep on left side following manuerver x1 pm, and drink plenty of water 4: discussed that moving slowly may make symptoms less severe, but not resolve BPPV 5: discussed avoiding bending the head forward below horizon while stooping down if possible to avoid osnet of symptoms 6: discussed informin the dentist of recurrent BPPV and ask if there are alternative positions or if it is possible to minimize the amount of time pt. is reclined Skilled Intervention: Skilled judgment in the selection of proper modification for activity of daily living/home management based on clinical presentation, deficits, and needs. Provided written instruction for activities of daily living techniques to facilitate proper performance and compliance. Reviewed patient specific diagnosis in relation to activities of daily living/home management. Activity progression based on professional judgement. Provided written instruction for home program to facilitate proper performance and compliance. Correct performance of home program was facilitated with verbal, visual, and tactile cueing. Canalith Repositionin: CRM for R posterior canalithiasis x 1 manuever Skilled Intervention: Professional judgment was used to determine specific treatment interventions based on assessment of symptoms. Physically assisted patient through each step of repositioning. Verbal and tactile cues provided to patient to assist in moving between each position of maneuver in correct sequence. Patient education including handouts provided regarding self repostitioning techniques to be performed at home. Instructed patient in post repositioning procedures. Billing Neuromuscular Re-Education Treatment Minutes: 4 Self-Care/Home Management Treatment Minutes: 15 * Canalith Repositionin unit Skilled Treatment Time Minutes (timed and untimed codes): 39 Total Session Time (minutes): 39 Session Start Time : 1151 Session Stop Time : 1230 Jill Marcelo PT documented in this encounter [facility] 05-25-2024 Note HNO ID: [id number] Author: JILL MARCELO PT Service: ? Author Type: Physical Therapist Type: Progress Notes Filed: 05/25/2024 13:28 Note Text: Episode Visit Count: 3 Therapist That Will Accept/Oversee The Plan Of Care: Jill Marcelo Start of Care Date: 04/13/24 Onset Date: 07/13/23 Plan of Care Certification Date: 05/25/24 Next Certification Due Date: 07/06/24 REHABILITATION AND SPORTS THERAPY PHYSICAL THERAPY PROGRESS REPORT PLAN OF CARE UPDATE: Assessment: Doreen Betancur demonstrates improvements in walking. The patient has progressed toward goals. Patient continues to present with impairments in ADL's, independence in exercise, overall function, patient reported outcome measures, and symptom management that interfere with walking, bed mobility (positional changes) . Current prognosis is Good due to: good support system/ coping skills, within-session changes, positive past response to therapy, acuteness of condition, current objective clinical presentation, good overall health status . The patient will benefit from continued skilled therapy services to meet the updated goals for this plan of care as noted below. Goals for Episode of Care: established 04/13/24 Goals updated on 05/25/2024. Patient will have negative positional testing for BPPV. -- NOT MET Patient will be independent with home exercise program and progression. -- PROGRESSING Patient will return to prior level of function with all activities of daily living with trace reports of dizziness. -- PROGRESSING Patient Goals: improve balance and resolve vertigo with laying down -- PROGRESSING Time Frame for Goals and Treatment : 07/06/24 Patient Goals: improve balance and resolve vertigo with laying down Planned Interventions, Frequency, and Duration: 1x/week, 6 weeks Total Number of Visits Planned: 6 Patient to be seen for Gait Training (59360), Self-long-term management (09322), Therapeutic activities (44496), Manual therapy (90765), Neuromuscular re-education (50270), Therapeutic exercise (41373), Canalith Repositioning Maneuvers (51016) PLAN FOR NEXT VISIT: assess symptom response to CRM SUBJECTIVE: Pt. fell while doing yard work 2 weeks. Denies dizziness leading up to this incident. Able to get herself up. Denies LOC or injury. About a week ago pt. was laid back in dentist chair and she felt vertigo with turning the head. Same symptoms with bed mobility since this incident. 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 Patient Goals: improve balance and resolve vertigo with laying down Functional Limitations: walking, bed mobility (positional changes) Pain: Pain Pain Level: 0 PROMIS Scales 05/25/2024 04/13/2024 08/05/2023 Higher is Better Phys Func - Score 51 (within normal limits) 53 (within normal limits) 51 (within normal limits) Phys Func - Percentile 54 62 54 Self-Eff Symptom - Score 49 (Average) 42 (Average) 48 (Average) Self-Eff Symptom - Percentile 46 21 42 T-scores: mean of general population = 50. 5 points is clinically meaningfully difference Percentiles provide an indication of how the patient's score ranks in relation to the general population. Higher percentile rankings indicate better function/quality of life. 50th percentile is the average of the general population and indicates half of respondents had a worse score. OBJECTIVE MEASURES WITH LEVEL OF FUNCTION: Positional Testing Right [place]-Hallpike: Symptomatic, With delay, Less than 60 seconds, Upbeat (counter clockwise torsional nystagmus) Left Shawn-Hallpike: Symptomatic, Less than 60 seconds, No nystagmus (less symptomatic than R shawn hallpike and without nystagmus) Right Ear Down: Asymptomatic, No nystagmus Left Ear Down: No nystagmus, Asymptomatic TREATMENT: Neuromuscular Re-Education: 1: R and L shawn HP1x each - worse symptoms R 2: R and L ear down denies symptoms Skilled Intervention: Skilled judgment used to assess appropriate program for balance and coordination activity. Education in proprioceptive/kinesthetic awareness during dynamic activities. Patient education as noted. Self-Longterm Management: 1: semont CRM discussed and printout provided 2: discouraged repeat self manuevers within a day if symptoms do not improve 3: maintain head upright x 2 hours, sleep on left side following manuerver x1 pm, and drink plenty of water 4: discussed that moving slowly may make symptoms less severe, but not resolve BPPV 5: discussed avoiding bending the head forward below horizon while stooping down if possible to avoid osnet of symptoms 6: discussed informin the dentist of recurrent BPPV and ask if there are alternative positions or if it is possible to minimize the amount of time pt. is reclined Skilled Intervention: Skilled judgment in the selection of proper modification for activity of daily living/home management based on clinical presentation, deficits, and needs. Provided written in (more content not included)... [facility] 05-25-2024 Note HNO ID: [id number] Author: BECCA MAGANA APRN.SLICING MACHINE TENDER Service: ? Author Type: Nurse Practitioner Type: Progress Notes Filed: 05/25/2024 11:12 Note Text: Chief Complaint Patient presents with: Established Patient HPI: Doreen Betancur is a 64 year old female who presents here today for follow up breast cancer. Per Dr. 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 Status post 6 doses of paclitaxel given on an every-2- week basis with growth factor support along with trastuzumab (CALGB 80962). Radiation therapy was completed in 11/2005. She had been on tamoxifen since the second week of 12/2005. Finished trastuzumab in June 2006. Completed 5 years' worth of tamoxifen fall 2010. Received injection Zoladex with plan for possible AI therapy, but had significant QUINTANILLA. Decision at that point to hold therapy. Took nearly the whole month for QUINTANILLA to gradually resolve. Underwent lap oophorectomy 06/2013. She was running a weed eater in early March 2019 when a rock was thrown up hitting her in the lateral right breast right along the scar from previous surgery. She developed a tender lump in that area. She underwent diagnostic mammogram and ultrasound which suggested hematoma. She had no skin discoloration. Follow-up breast ultrasound suggested stable findings consistent with hematoma. Repeat ultrasound of the right breast on 08/24/2019 revealed a 1.8 x 2.4 x 1.2 cm lobulated mass in the right breast that was suspicious for malignancy. Biopsy was recommended. Biopsy done 09/02/2019. Pathology: MICROSCOPIC DIAGNOSIS Right breast, ultrasound-guided needle core biopsy: Invasive ductal carcinoma. Nuclear grade - 3/3 Maximal length - 13 mm Other findings - tumor necrosis Reference is made to the patient?s previous right breast lumpectomy from 2004 ([id number]) in which invasive, grade 3/3, poorly differentiated ductal carcinoma was identified. ER (clone [id number]) 4% dim ID (clone 16/1E2) 0% Her-2Neu (clone [id number]) 0 MRI Breast 09/19/2019: RIGHT BREAST: The breast tissue is scattered fibroglandular densities with no background enhancement. There is a 2.5 cm abnormal enhancing mass in the superior outer aspect of the right breast located approximately 6 cm from the nipple. This does correlate to the area that was biopsied and shown to represent a malignancy. No other abnormal enhancing or abnormal morphologically appearing masses are seen in the right breast. LEFT BREAST: The breast tissue is heterogeneously dense with no background enhancement. There are no abnormal enhancing masses or areas of non-mass enhancement in the left breast. There are no enlarged or abnormal lymph nodes. There is no abnormality in the visualized regions of the chest or liver. IMPRESSION: There is a known malignancy in the right breast. Surgical consultation is recommended as well as radiation oncology and medical oncology consultation. Short-term six-month follow-up mammogram is recommended if the patient and the surgeon opt to do a lumpectomy. Underwent right modified radical mastectomy along with right axillary lymph node dissection on 10/11/2019. Pathology: FROZEN SECTION DIAGNOSIS A. Right axillary sentinel lymph nodes, biopsy: Two out of two lymph nodes negative for carcinoma. MICROSCOPIC DIAGNOSIS A. Right axillary sentinel lymph nodes, biopsy: Three out of three lymph nodes, negative for metastatic carcinoma. B. Right breast, mastectomy: Invasive poorly differentiated ductal carcinoma. See cancer check list below. COMMENT INVASIVE BREAST CANCER SUMMARY: Procedure: Mastectomy Specimen: Type: Total breast Size: 17 x 15 x 5 cm Laterality: Right breast Invasive Tumor: Size of tumor: 2.5 x 2 x 2 cm Focality: Single focus of invasive tumor Histologic type: Invasive ductal carcinoma. Histologic grade ([place] grade): Glandular/tubular differentiation score: 3 Nuclear pleomorphism score: 3 Mitotic count score: 3 Overall grade: 3 (score of 9/9) Lymph-vascular invasion: Not identified Ductal Carcinoma In Situ: Not identified Lobular Carcinoma In Situ: Not identified Tumor extension: Skin: Free of carcinoma Nipple: Free of carcinoma Skeletal muscle: Free of carcinoma Margins Involved by Invasive Carcinoma: None Distance from closest margin: 1.5 mm from superior margin Margins Involved by In Situ Carcinoma: Not applicable Lymph Nodes: Number of sentinel lymph nodes examined: 3 Total number of lymph nodes examined: 10 One non-sentinel lymph node with macrometastatic carcinoma (2.1 cm in greatest dimension). See specimen A for sentinel lymph nodes. Microcalcifications: Not identified Treatment Effect: Unknown Additional Pathologi (more content not included)... [facility] 05-25-2024 History of Presen t illness Narrative Chief Complaint Patient presents with: Established Patient HPI: Doreen Betancur is a 64 year old female who presents here today for follow up breast cancer. Per Dr. 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 Status post 6 doses of paclitaxel given on an every-2- week basis with growth factor support along with trastuzumab (CALGB 82200). Radiation therapy was completed in 11/2005. She had been on tamoxifen since the second week of 12/2005. Finished trastuzumab in June 2006. Completed 5 years' worth of tamoxifen fall 2010. Received injection Zoladex with plan for possible AI therapy, but had significant QUINTANILLA. Decision at that point to hold therapy. Took nearly the whole month for QUINTANILLA to gradually resolve. Underwent lap oophorectomy 06/2013. She was running a weed eater in early March 2019 when a rock was thrown up hitting her in the lateral right breast right along the scar from previous surgery. She developed a tender lump in that area. She underwent diagnostic mammogram and ultrasound which suggested hematoma. She had no skin discoloration. Follow-up breast ultrasound suggested stable findings consistent with hematoma. Repeat ultrasound of the right breast on 08/24/2019 revealed a 1.8 x 2.4 x 1.2 cm lobulated mass in the right breast that was suspicious for malignancy. Biopsy was recommended. Biopsy done 09/02/2019. Pathology: MICROSCOPIC DIAGNOSIS Right breast, ultrasound-guided needle core biopsy: Invasive ductal carcinoma. Nuclear grade - 3/3 Maximal length - 13 mm Other findings - tumor necrosis Reference is made to the patient s previous right breast lumpectomy from 2004 ([id number]) in which invasive, grade 3/3, poorly differentiated ductal carcinoma was identified. ER (clone [id number]) 4% dim ID (clone 16/[id number]) 0% Her-2Neu (clone [id number]) 0 MRI Breast 09/19/2019: RIGHT BREAST: The breast tissue is scattered fibroglandular densities with no background enhancement. There is a 2.5 cm abnormal enhancing mass in the superior outer aspect of the right breast located approximately 6 cm from the nipple. This does correlate to the area that was biopsied and shown to represent a malignancy. No other abnormal enhancing or abnormal morphologically appearing masses are seen in the right breast. LEFT BREAST: The breast tissue is heterogeneously dense with no background enhancement. There are no abnormal enhancing masses or areas of non-mass enhancement in the left breast. There are no enlarged or abnormal lymph nodes. There is no abnormality in the visualized regions of the chest or liver. IMPRESSION: There is a known malignancy in the right breast. Surgical consultation is recommended as well as radiation oncology and medical oncology consultation. Short-term six-month follow-up mammogram is recommended if the patient and the surgeon opt to do a lumpectomy. Underwent right modified radical mastectomy along with right axillary lymph node dissection on 10/11/2019. Pathology: FROZEN SECTION DIAGNOSIS A. Right axillary sentinel lymph nodes, biopsy: Two out of two lymph nodes negative for carcinoma. MICROSCOPIC DIAGNOSIS A. Right axillary sentinel lymph nodes, biopsy: Three out of three lymph nodes, negative for metastatic carcinoma. B. Right breast, mastectomy: Invasive poorly differentiated ductal carcinoma. See cancer check list below. COMMENT INVASIVE BREAST CANCER SUMMARY: Procedure: Mastectomy Specimen: Type: Total breast Size: 17 x 15 x 5 cm Laterality: Right breast Invasive Tumor: Size of tumor: 2.5 x 2 x 2 cm Focality: Single focus of invasive tumor Histologic type: Invasive ductal carcinoma. Histologic grade (Sri grade): Glandular/tubular differentiation score: 3 Nuclear pleomorphism score: 3 Mitotic count score: 3 Overall grade: 3 (score of 9/9) Lymph-vascular invasion: Not identified Ductal Carcinoma In Situ: Not identified Lobular Carcinoma In Situ: Not identified Tumor extension: Skin: Free of carcinoma Nipple: Free of carcinoma Skeletal muscle: Free of carcinoma Margins Involved by Invasive Carcinoma: None Distance from closest margin: 1.5 mm from superior margin Margins Involved by In Situ Carcinoma: Not applicable Lymph Nodes: Number of sentinel lymph nodes examined: 3 Total number of lymph nodes examined: 10 One non-sentinel lymph node with macrometastatic carcinoma (2.1 cm in greatest dimension). See specimen A for sentinel lymph nodes. Microcalcifications: Not identified Treatment Effect: Unknown Additional Pathologic Findings: Extensive tumor necrosis Ancillary Studies: Previously performed on same tumor ([id number]) ER: positive (4%, dim) ID: negative (0%) Uzo3dff: negative (0) Clinical History: Mass of breast Pathologic Stage: pT2 N1a Mx Previous therapy: 1) AC followed by T 2) Radiation at [facility]. Current therapy: Essence Began aromasin in 2019. Stopped December 2021 d/t hand pain/stiffness. Pt. s/p R JAY JAY 2021 complicated by abd hematoma-I&D 09/17/21. Surgery done at [facility]. Pt. has surgery scheduled [id number] with plastics ([facility])-L mastopexy, R revision. Pt. is participating in PT for dizziness. Appetite:Too good. Wt. stable. Energy level:Pretty good. Denies fevers or recent illness. Resp:denies cough or sob Cardiac:denies chest pain/palpitations GI:denies abd pain, n/v, moving bowels regularly :denies dysuria/hematuria Extrem:denies pain, hand stiffness/pain resolved when stopped aromasin, knee stiffness on femara Endo:+hot flashes Just hot all the time. they do not wake pt. at night Neuro:neuropathy resolved to toes/feet Skin:denies rashes/lesions Heme:denies bleeding The ROS is otherwise negative. Past medical history, appointments, medications, allergies reviewed. No changes. EXAM: BP 132/89 Pulse 90 Temp 36.6 C (97.8 F) (Temporal) Wt 73.2 kg (161 lb 6 oz) LMP 08/10/2012 SpO2 97% BMI 28.59 kg/m APPEARANCE Well appearing, alert, in no acute distress, well-hydrated, well nourished. HEART RRR with normal S1 and S2, no murmurs LUNG clear to auscultation BREAST FEMALE R recon JAY JAY, no mass/nodule, L no mass/nodule LYMPH NODES No cervical lymphadenopathy, No supraclavicular lymphadenopathy, and No axillary lymphadenopathy. ABDOMEN bowel sounds normoactive, soft, non-tender EXTREMITIES No edema NEURO Awake, alert and oriented x 3, Normal gait, and No involuntary motions. SKIN Skin color, texture, turgor normal, no suspicious rashes or lesions RADIOLOGY: Mammogram 04/13/24: IMPRESSION: BENIGN There is no mammographic evidence of malignancy. A 1 year screening mammogram is recommended. The exam was reviewed by a staff physician. ASSESSMENT/PLAN: 1. Malignant neoplasm of upper-outer quadrant of right breast in female, estrogen receptor positive (HCC) - ICD9: 174.4, V86.0, ICD10: C50.411, Z17.0 Originally diagnosed with a T1c N0 MX, ER+; 50%, ID-<5% and HER-2 overexpressed (FISH average gene copy #13.2 HER-2 to CEP 17 ratio 5.8) infiltrating ductal carcinoma of the right breast. Received 6 cycles of paclitaxel even on an every two-week basis along with growth factor support (CALGB 49634) and trastuzumab. New pT2 pN1a ER 4%, ID negative, HER2 negative (0 on IHC) stage IIB infiltrating ductal carcinoma the right breast. Genetic testing negative. - No concerning findings on exam. - Tolerated aromasin poorly d/t hand stiffness. - Tolerating femara fair d/t knee/joint stiffness. Pt. would like to continue. - Reviewed mammogram with pt. - Continue femara. - Mammogram due March 2025. - Follow up in 6 months. - Pt. aware to call office with any questions/concerns. The sensitive examination was discussed with the Patient or Patient's Authorized Special Tax Auditor. As applicable, any other physician, advance practice provider, medical student, or other health professional student that will be observing or involved in the sensitive examination for educational or training purposes was discussed with the Patient or Authorized Special Tax Auditor. The Patient or Authorized Special Tax Auditor has agreed to proceed with the sensitive examination. (Sensitive examination includes inspection and/or palpation of the breasts, pelvis, prostate and anorectal regions) The patient indicates understanding of these issues and agrees with the plan. All documentation from previous visit of 11/25/23-Dr. Lopez/myself was copied and pasted, documentation has been reviewed and edited as necessary for today's visit. Becca Magana APRN.SYL documented in this encounter [facility] 05-02-2024 Note HNO ID: [id number] Author: JILL MARCELO, PT Service: ? Author Type: Physical Therapist Type: Progress Notes Filed: 05/02/2024 15:22 Note Text: Episode Visit Count: 2 Therapist That Will Accept/Oversee The Plan Of Care: Jill Marcelo Start of Care Date: 04/13/24 Onset Date: 07/13/23 Plan of Care Certification Date: 04/13/24 Next Certification Due Date: 05/25/24 REHABILITATION AND SPORTS THERAPY PHYSICAL THERAPY TREATMENT NOTE ASSESSMENT: Doreen Betancur tolerated the session with decreased symptoms. She demonstrated difficulty with tandem stance with eyes closed however did well with tandem stepping with the eyes open on firm and foam surfaces without LOB. The patient will continue to benefit from ongoing skilled physical therapy to progress toward set goals. PLAN FOR NEXT VISIT: continue balance training - monitor for return of BPPV and treat as needed SUBJECTIVE: No dizziness since CRM. Patient Goals: improve balance and resolve vertigo with laying down Pain: Post Treatment Pain Post Treatment Pain Level: 0 OBJECTIVE MEASURES WITH LEVEL OF FUNCTION: CTSIB Eyes open, firm surface Trial 1 (sec): 30 Eyes open, firm surface Trial 1 (sway): WNL Eyes closed, firm surface Trial 1 (sec): 30 Eyes closed, firm surface Trial 1 (sway): WNL Tandem standing, eyes open Trial 1 (sec): 30 Tandem standing, eyes open Trial 1 (sway): WNL Tandem standing, eyes closed Trial 1(sec): 22 Tandem standing, eyes closed Trial 1 (sway): Loss of balance Tandem standing, eyes closed Trial 2 (sec): 4 Tandem standing, eyes closed Trial 2 (sway): Loss of balance Tandem standing, eyes closed Trial 3 (sec): 4 Tandem standing, eyes closed Trial 3 (sway): Loss of balance Partial tandem standing, eyes open Trial 1 (sec): 30 Partial tandem standing, eyes open Trial 1 (sway): WNL Partial tandem standing, eyes closed Trial 1 (sec): 30 Partial tandem standing, eyes closed Trial 1 (sway): WNL TREATMENT: Neuromuscular Re-Education: 1: romberg firm surface EO and EC 30 sec each 2: tandem 30s sec EO, firm surface 3: tandem 30 sec EC, foam surface x 3 trials 4: semi-tandem EO 30 sec firm surface x1 trial 5: semi-tandem EO 30 sec firm surface x1 trial 6: tandem stepping 20' 6x firm surface 7: tandem stepping on foam in // bars 20' 12 8: BOSU ball step ups 2x12 (x1 UE support on // bar 1st set, x0 UE support 2nd set) Skilled Intervention: Skilled judgment used to assess appropriate program for balance and coordination activity. Education in proprioceptive/kinesthetic awareness during dynamic activities. Ensured patient safety with use of // bars and gait belt. Reviewed and educated patient on additions/changes for home program as noted above with an (*). Billing Neuromuscular Re-Education Treatment Minutes: 38 Skilled Treatment Time Minutes (timed and untimed codes): 38 Total Session Time (minutes): 38 Session Start Time : 1443 Session Stop Time : 1521 Jill Marcelo, PT [facility] 05-02-2024 History of Presen t illness Narrative Episode Visit Count: 2 Therapist That Will Accept/Oversee The Plan Of Care: Jill Marcelo Start of Care Date: 04/13/24 Onset Date: 07/13/23 Plan of Care Certification Date: 04/13/24 Next Certification Due Date: 05/25/24 REHABILITATION AND SPORTS THERAPY PHYSICAL THERAPY TREATMENT NOTE ASSESSMENT: Doreen Betancur tolerated the session with decreased symptoms. She demonstrated difficulty with tandem stance with eyes closed however did well with tandem stepping with the eyes open on firm and foam surfaces without LOB. The patient will continue to benefit from ongoing skilled physical therapy to progress toward set goals. PLAN FOR NEXT VISIT: continue balance training - monitor for return of BPPV and treat as needed SUBJECTIVE: No dizziness since CRM. Patient Goals: improve balance and resolve vertigo with laying down Pain: Post Treatment Pain Post Treatment Pain Level: 0 OBJECTIVE MEASURES WITH LEVEL OF FUNCTION: CTSIB Eyes open, firm surface Trial 1 (sec): 30 Eyes open, firm surface Trial 1 (sway): WNL Eyes closed, firm surface Trial 1 (sec): 30 Eyes closed, firm surface Trial 1 (sway): WNL Tandem standing, eyes open Trial 1 (sec): 30 Tandem standing, eyes open Trial 1 (sway): WNL Tandem standing, eyes closed Trial 1(sec): 22 Tandem standing, eyes closed Trial 1 (sway): Loss of balance Tandem standing, eyes closed Trial 2 (sec): 4 Tandem standing, eyes closed Trial 2 (sway): Loss of balance Tandem standing, eyes closed Trial 3 (sec): 4 Tandem standing, eyes closed Trial 3 (sway): Loss of balance Partial tandem standing, eyes open Trial 1 (sec): 30 Partial tandem standing, eyes open Trial 1 (sway): WNL Partial tandem standing, eyes closed Trial 1 (sec): 30 Partial tandem standing, eyes closed Trial 1 (sway): WNL TREATMENT: Neuromuscular Re-Education: 1: romberg firm surface EO and EC 30 sec each 2: tandem 30s sec EO, firm surface 3: tandem 30 sec EC, foam surface x 3 trials 4: semi-tandem EO 30 sec firm surface x1 trial 5: semi-tandem EO 30 sec firm surface x1 trial 6: tandem stepping 20' 6x firm surface 7: tandem stepping on foam in // bars 20' 12 8: BOSU ball step ups 2x12 (x1 UE support on // bar 1st set, x0 UE support 2nd set) Skilled Intervention: Skilled judgment used to assess appropriate program for balance and coordination activity. Education in proprioceptive/kinesthetic awareness during dynamic activities. Ensured patient safety with use of // bars and gait belt. Reviewed and educated patient on additions/changes for home program as noted above with an (*). Billing Neuromuscular Re-Education Treatment Minutes: 38 Skilled Treatment Time Minutes (timed and untimed codes): 38 Total Session Time (minutes): 38 Session Start Time : 1443 Session Stop Time : 1521 Jill Marcelo PT documented in this encounter [facility] 04-25-2024 Telephone encounter Note Prescription Refill Information The patient has been identified by name and date of : Yes Caregiver verified no other encounters exist for this prescription request: Yes Caregiver confirmed with patient/requestor that no other refills are due, in the near future, with this provider at this time: Yes The last office visit in the department: 03/30/24 Does the patient have a future office visit with this provider/department: Yes 07/06/24 Requested Prescriptions Pending Prescriptions Disp Refills ezetimibe (ZETIA) 10 mg tablet 90 tablet 3 Sig: Take 1 tablet by mouth once daily. At supper or bedtime Yisel Beckwith LPN April 25, 2024 2:11 PM [facility] 04-25-2024 Miscellaneous Notes Prescription Refill Information The patient has been identified by name and date of : Yes Caregiver verified no other encounters exist for this prescription request: Yes Caregiver confirmed with patient/requestor that no other refills are due, in the near future, with this provider at this time: Yes The last office visit in the department: 03/30/24 Does the patient have a future office visit with this provider/department: Yes 07/06/24 Requested Prescriptions Pending Prescriptions Disp Refills ezetimibe (ZETIA) 10 mg tablet 90 tablet 3 Sig: Take 1 tablet by mouth once daily. At supper or bedtime Yisel Beckwith LPN April 25, 2024 2:11 PM documented in this encounter [facility] 04-13-2024 Note Formatting of this n ote might be different from the original. April 14, 2024 PID: [id number] Doreen Betancur [address] [place] [address] Dear Ms. Betancur, We are pleased to inform you that the results of your recent breast imaging exam on 04/13/2024 are normal. Breast tissue can be either dense or not dense. Dense tissue makes it harder to find breast cancer on a mammogram and also raises the risk of developing breast cancer. Your breast tissue is dense. In some people with dense tissue, other imaging tests in addition to a mammogram may help find cancers. Talk to your healthcare provider about breast density, risks for breast cancer, and your individual situation. Early detection of cancer is very important. We also understand recommendations regarding breast cancer screening are controversial. Please discuss with your primary care provider which strategy is best for you and whether a mammogram is right for you. Your imaging studies and report will be kept on file at [facility] as part of your permanent medical record and are available for your continuing care. Thank you for allowing us to help in meeting your health care needs. Sincerely, Dr. Villar Interpreting Radiologist [facility] (Normal over 40) [facility] 04-13-2024 Miscellaneous Notes April 14, 2024 PID: [id number] Doreen Betancur [address] [place] [address] Dear Prasanna Gypsy, We are pleased to inform you that the results of your recent breast imaging exam on 04/13/2024 are normal. Breast tissue can be either dense or not dense. Dense tissue makes it harder to find breast cancer on a mammogram and also raises the risk of developing breast cancer. Your breast tissue is dense. In some people with dense tissue, other imaging tests in addition to a mammogram may help find cancers. Talk to your healthcare provider about breast density, risks for breast cancer, and your individual situation. Early detection of cancer is very important. We also understand recommendations regarding breast cancer screening are controversial. Please discuss with your primary care provider which strategy is best for you and whether a mammogram is right for you. Your imaging studies and report will be kept on file at [facility] as part of your permanent medical record and are available for your continuing care. Thank you for allowing us to help in meeting your health care needs. Sincerely, Dr. Villar Interpreting Radiologist [facility] (Normal over 40) documented in this encounter [facility] 04-13-2024 History of Presen t illness Narrative Program_ID:[id number] Access Code: [email or web address] URL: [email or web address] Date: 04-13-2024 Prepared By: Jill Marcelo Program Notes Patient Education - What Is BPPV? - BPPV - BPPV Episode Visit Count: 1 Therapist That Will Accept/Oversee The Plan Of Care: Jill Marcelo Start of Care Date: 04/13/24 Onset Date: 07/13/23 Plan of Care Certification Date: 04/13/24 Next Certification Due Date: 05/25/24 Patient Identified by Name and Date of : Yes REHABILITATION AND SPORTS THERAPY PHYSICAL THERAPY EVALUATION PLAN OF CARE: Assessment: Doreen Betancur presents with diagnosis of vertigo that interferes with walking . She presents with impairments in ADL's, balance, independence in exercise, overall function, patient reported outcome measures, and symptom management. PROMIS (Patient-Reported Outcomes Measurement Information System) scores were reviewed and identified as a rehabilitation concern. Prognosis for therapy is Good due to: good support system/ coping skills, within-session changes, positive past response to therapy, acuteness of condition, current objective clinical presentation, good overall health status . She will benefit from skilled therapy services to meet the goals established for this plan of care as noted below. Goals for Episode of Care: established 04/13/24 Patient will have negative positional testing for BPPV. Patient will be independent with home exercise program and progression. Patient will return to prior level of function with all activities of daily living with trace reports of dizziness. Patient Goals: improve balance and resolve vertigo with laying down Time Frame for Goals and Treatment : 05/25/24 Planned Interventions, Frequency, and Duration: Current Frequency: 1x/week Duration: 4 weeks Total Number of Visits Planned: 4 Planned Treatment Interventions: Gait Training (96189), Self-long-term management (22967), Therapeutic activities (83162), Manual therapy (00190), Neuromuscular re-education (48472), Therapeutic exercise (40380), Canalith Repositioning Maneuvers (53048) PLAN FOR NEXT VISIT: assess symptom resposne to R CRM for R posterior canalithiasis Patient demonstrates good understanding of plan of care and treatment. The above goals and plan of care were discussed and agreed upon by patient/family. SUBJECTIVE: for dizziness that comes and goes. Pt. states it's better since July when she was last seen by vestibular PT. Comes on about once a mo. and lasts a few minutes. She has not found these symptoms to be correlated with a specific movement. Her cheif complaint is her imbalance. 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 She had trouble leading a cow due to the cow knocking her down and the uneven terrain. At end of visit, pt. reports that laying down flat on her back causes her to spin lasting <30 sec. 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 Intake Information: Prescription present Previous Treatment: Vestibular Physical Therapy Falls Interview: No positive findings with falls interview Vestibular Symptoms present for: years Symptom onset: gradual Dizziness: No Imbalance: Yes Imbalance triggered by: Unstable surface, Turning Imbalance Comments: turning Fall Assessment: No falls Nausea: denies Motion Sickness: None Headache: No Neck Symptoms: No Jaw Symptoms: No Ear Symptoms: No Hearing Changes: No recent changes Tinnitus: No recent changes Sleep Affected by Symptoms: not affected by pain, Not affected by dizziness History of Syncope: No History of Migraine: No Denies: dizziness, visual changes, paresthesia, neuropathy, focal weakness, tremors, headaches Pain: Post Treatment Pain Post Treatment Pain Level: 0 Post Treatment Symptoms: denies dizziness PROMIS Scales 04/13/2024 08/05/2023 02/02/2023 Higher is Better Phys Func - Score 53 (within normal limits) 51 (within normal limits) 54 (within normal limits) Phys Func - Percentile 62 54 66 Self-Eff Symptom - Score 42 (Average) 48 (Average) 56 (Average) Self-Eff Symptom - Percentile 21 42 73 T-scores: mean of general population = 50. 5 points is clinically meaningfully difference Percentiles provide an indication of how the patient's score ranks in relation to the general population. Higher percentile rankings indicate better function/quality of life. 50th percentile is the average of the general population and indicates half of respondents had a worse score. OBJECTIVE MEASURES WITH LEVEL OF FUNCTION: Posture / Alignment Posture: Forward head, Increased thoracic kyphosis CTSIB Eyes open, foam surface Trial 1 (sec): 30 Eyes open, foam surface Trial 1 (sway): WNL Eyes closed, foam surface Trial 1 (sec): 30 Eyes closed, foam surface Trial 1 (sway): Mild Education: Education Learning Preferences: Demonstration, Explanation, Performance, Printed Materials Barriers: None Learning/educational needs: Plan of Care, Home exercise program, Gait Training Education Provided: Yes, see treatment interventions for education provided Education Provided To: Patient Education Mode/Type: Demonstration, Explanation/Discussion, Literature/Printed Materials, Performance Response to Education/Teach Back: States/Identifies, Return Demonstration TREATMENT: PT Treatment Interventions: Neuromuscular Re-Education, Canalith Repositioning, Self-Longterm Management Evaluation Neuromuscular Re-Education: 1: romberg with head movmeent vertical x 30 sec EO 2: romberg with head movmeent horizontal x 30 sec EO Skilled Intervention: Skilled judgment used to assess appropriate program for balance and coordination activity. Education in proprioceptive/kinesthetic awareness during standing. Reviewed and educated patient on additions/changes for home program as noted above with an (*). Patient education as noted. Self-Longterm Management: 1: *Access Code: [email or web address] URL: [email or web address] Date: 04/13/2024 Prepared by: Jill Thomas Patient Education - What Is BPPV? - BPPV - BPPV 2: discussed what is BPPV 3: discussed post- procedure precautions 4: advised pt. to move normally -- avoid changing movement patterns that can become a habit even after symtpoms are resolved Skilled Intervention: Skilled judgment in the selection of proper modification for activity of daily living/home management based on clinical presentation, deficits, and needs. Reviewed patient specific diagnosis in relation to activities of daily living/home management. Activity progression based on professional judgement. Reviewed and educated patient on additions/changes for home program as noted above with an (*). Canalith Repositionin: CRM for R posterior canalithiasis Skilled Intervention: Professional judgment was used to determine specific treatment interventions based on assessment of symptoms. Physically assisted patient through each step of repositioning. Verbal and tactile cues provided to patient to assist in moving between each position of maneuver in correct sequence. Patient education including handouts provided regarding self repostitioning techniques to be performed at home. Instructed patient in post repositioning procedures. Billing * Evaluation Low Complexity: 1 Unit Neuromuscular Re-Education Treatment Minutes: 2 Self-Care/Home Management Treatment Minutes: 13 * Canalith Repositionin unit Skilled Treatment Time Minutes (timed and untimed codes): 44 Total Session Time (minutes): 44 Session Start Time : 1110 Session Stop Time : 1154 Jill Marcelo PT documented in this encounter [facility] 04-13-2024 Note HNO ID: [id number] Author: JILL MARCELO, PT Service: ? Author Type: Physical Therapist Type: Progress Notes Filed: 04/13/2024 13:58 Note Text: Episode Visit Count: 1 Therapist That Will Accept/Oversee The Plan Of Care: Jill Marcelo Start of Care Date: 04/13/24 Onset Date: 07/13/23 Plan of Care Certification Date: 04/13/24 Next Certification Due Date: 05/25/24 Patient Identified by Name and Date of : Yes REHABILITATION AND SPORTS THERAPY PHYSICAL THERAPY EVALUATION PLAN OF CARE: Assessment: Doreen Betancur presents with diagnosis of vertigo that interferes with walking . She presents with impairments in ADL's, balance, independence in exercise, overall function, patient reported outcome measures, and symptom management. PROMIS? (Patient-Reported Outcomes Measurement Information System) scores were reviewed and identified as a rehabilitation concern. Prognosis for therapy is Good due to: good support system/ coping skills, within-session changes, positive past response to therapy, acuteness of condition, current objective clinical presentation, good overall health status . She will benefit from skilled therapy services to meet the goals established for this plan of care as noted below. Goals for Episode of Care: established 04/13/24 Patient will have negative positional testing for BPPV. Patient will be independent with home exercise program and progression. Patient will return to prior level of function with all activities of daily living with trace reports of dizziness. Patient Goals: improve balance and resolve vertigo with laying down Time Frame for Goals and Treatment : 05/25/24 Planned Interventions, Frequency, and Duration: Current Frequency: 1x/week Duration: 4 weeks Total Number of Visits Planned: 4 Planned Treatment Interventions: Gait Training (49071), Self-long-term management (62265), Therapeutic activities (75401), Manual therapy (76640), Neuromuscular re-education (51288), Therapeutic exercise (34356), Canalith Repositioning Maneuvers (02302) PLAN FOR NEXT VISIT: assess symptom resposne to R CRM for R posterior canalithiasis Patient demonstrates good understanding of plan of care and treatment. The above goals and plan of care were discussed and agreed upon by patient/family. SUBJECTIVE: for dizziness that comes and goes. Pt. states it's better since July when she was last seen by vestibular PT. Comes on about once a mo. and lasts a few minutes. She has not found these symptoms to be correlated with a specific movement. Her cheif complaint is her imbalance. 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 She had trouble leading a cow due to the cow knocking her down and the uneven terrain. At end of visit, pt. reports that laying down flat on her back causes her to spin lasting <30 sec. 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 Intake Information: Prescription present Previous Treatment: Vestibular Physical Therapy Falls Interview: No positive findings with falls interview Vestibular Symptoms present for: years Symptom onset: gradual Dizziness: No Imbalance: Yes Imbalance triggered by: Unstable surface, Turning Imbalance Comments: turning Fall Assessment: No falls Nausea: denies Motion Sickness: None Headache: No Neck Symptoms: No Jaw Symptoms: No Ear Symptoms: No Hearing Changes: No recent changes Tinnitus: No recent changes Sleep Affected by Symptoms: not affected by pain, Not affected by dizziness History of Syncope: No History of Migraine: No Denies: dizziness, visual changes, paresthesia, neuropathy, focal weakness, tremors, headaches Pain: Post Treatment Pain Post Treatment Pain Level: 0 Post Treatment Symptoms: denies dizziness PROMIS Scales 04/13/2024 08/05/2023 02/02/2023 Higher is Better Phys Func - Score 53 (within normal limits) 51 (within normal limits) 54 (within normal limits) Phys Func - Percentile 62 54 66 Self-Eff Symptom - Score 42 (Average) 48 (Average) 56 (Average) Self-Eff Symptom - Percentile 21 42 73 T-scores: mean of general population = 50. 5 points is clinically meaningfully difference Percentiles provide an indication of how the patient's score ranks in relation to the general population. Higher percentile rankings indicate better function/quality of life. 50th percentile is the average of the general population and indicates half of respondents had a worse score. OBJECTIVE MEASURES WITH LEVEL OF FUNCTION: Posture / Alignment Posture: Forward head, Increased thoracic kyphosis CTSIB Eyes open, foam surface Trial 1 (sec): 30 Eyes open, foam surface Trial 1 (sway): WNL Eyes closed, foam surface Trial 1 (sec): 30 Eyes closed, foam surface Trial 1 (sway): Mild Educat (more content not included)... [facility] 04-13-2024 History of Presen t illness Narrative Radiology Service Progress Note PATIENT NAME: Doreen Betancur DATE OF SERVICE: April 13, 2024 TIME: 10:51 AM PATIENT IDENTITY VERIFICATION COMPLETED USING TWO (2) IDENTIFIERS: Name and Date of confirmed by patient verbally. FALL SCREENING: Has the patient had 2 falls in the last year or 1 fall with injury or currently using an Ambulatory Assistive Device (Walker, Cane, Wheelchair, Crutches, etc.)? No PATIENT GENDER DATA: Female. status: : No status: NO. PATIENT RELEVANT IMPLANT DATA REVIEWED: Not Applicable PATIENT PRESENTS WITH AN IMPLANTABLE OR ATTACHED TESTER/LIFT TRUCKER: No RADIOLOGY DEPARTMENT: Mammography PERIPHERAL IV DATA: Not applicable SIGNED BY: Mag Vega April 13, 2024 10:51 AM documented in this encounter [facility] 04-13-2024 Note HNO ID: [id number] Author: ERICA WEST Mammo Tech Service: ? Author Type: Food And Beverage Service Manager Type: Progress Notes Filed: 04/13/2024 10:52 Note Text: Radiology Service Progress Note PATIENT NAME: Doreen Betancur DATE OF SERVICE: April 13, 2024 TIME: 10:51 AM PATIENT IDENTITY VERIFICATION COMPLETED USING TWO (2) IDENTIFIERS: Name and Date of confirmed by patient verbally. FALL SCREENING: Has the patient had 2 falls in the last year or 1 fall with injury or currently using an Ambulatory Assistive Device (Walker, Cane, Wheelchair, Crutches, etc.)? No PATIENT GENDER DATA: Female. status: : No status: NO. PATIENT RELEVANT IMPLANT DATA REVIEWED: Not Applicable PATIENT PRESENTS WITH AN IMPLANTABLE OR ATTACHED TESTER/LIFT TRUCKER: No RADIOLOGY DEPARTMENT: Mammography PERIPHERAL IV DATA: Not applicable SIGNED BY: Mag Vega April 13, 2024 10:51 AM [facility] 03-30-2024 Note HNO ID: [id number] Author: HAM MARTINEZ, DO Service: ? Author Type: Physician Type: Progress Notes Filed: 03/30/2024 12:42 Note Text: CC: Doreen Betancur is a 64 year old female who presents to the office for follow up HPI: Still struggling with stiffness in joints and aching in the muscles, diffusely. Has been occurring since being on chemotherapy as well as on Femara. Has at least 1 more year of this medication for hormone blockade- she is unsure if she will continue it further on. Hx of breast cancer x 2 separate episodes. Mood, currently taking zoloft 50 mg a day, wondering if dose needs to go up. Struggles mostly with her depression in the winter months. Does know about light box therapy as well that she can use. No SI or HI. Currently mood is doing well. BPPV, balance concerns. Will be having therapy on this in the next few weeks- has had to delay the vestibular PHYSICAL THERAPY since her truck hasn't been drivable and not able to get there. PAST MEDICAL HISTORY 05/2023: Abnormality of ascending aorta Comment: borderline dilation 3.8 cm No date: Anxiety 05/27/2005: Malignant neoplasm of breast (female), unspecified site Comment: right breast No date: Vitamin D deficiency PAST SURGICAL HISTORY No date: BREAST RECONSTRUCTION; Right No date: DELIVERY ONLY Comment: times four 12/11/2014: COLONOSCOPY FLX DX W/COLLJ SPEC WHEN PFRMD Comment: Repeat 2024: DILATION AND CURETTAGE DXAND/THER NONOBSTETRIC 07/05/2013: LAPAROSCOPY W/RMVL ADNEXAL STRUCTURES Comment: Laprascopic BSO h/o breast ca 1998(?): LIG/TRNSXJ FLP TUBE ABDL/VAG APPR UNI/BI 10/11/2019: MAST MODF RAD W/AX LYMPH NOD W/WO PECT/VICKY MIN; Right Comment: Dr. Arceo, [facility] 06/17/2005: PAST SURGICAL HISTORY OF Comment: lumpectomy and removal of lymph nodes 2018: PAST SURGICAL HISTORY OF Comment: Laser surgery vaginal Current Outpatient Medications Medication Sig DULoxetine (CYMBALTA) 60 mg capsule Take 1 capsule by mouth once daily. levothyroxine (LEVOXYL) 75 mcg tablet Take 1 tablet by mouth once daily. Take daily in the morning before eating, Take on empty stomach. For Thyroid sertraline (ZOLOFT) 50 mg tablet Take 1.5 tablets by mouth once daily. meclizine (ANTIVERT) 12.5 mg tab Take 1 tablet by mouth every 6 hours as needed (dizziness). letrozole (FEMARA) 2.5 mg tablet Take 1 tablet by mouth once daily. benzonatate (TESSALON PERLE) 100 mg capsule Take 2 capsules by mouth three times a day as needed. busPIRone (BUSPAR) 7.5 mg tablet Take 1 tablet by mouth three times a day as needed. triamcinolone acetonide (KENALOG) 0.5 % cream Apply 1 application to affected area two times a day. For rash/itching. Apply sparingly. Avoid face/skin fold. ezetimibe (ZETIA) 10 mg tablet Take 1 tablet by mouth once daily. At supper or bedtime clonazePAM (KLONOPIN) 0.5 mg tablet Take 1 tablet by mouth twice daily as needed for anxiety for up to 30 days. cyclobenzaprine (FLEXERIL) 10 mg tablet Take 1 tablet by mouth every 8 hours as needed for muscle spasm or pain (FOR PAIN OR MUSCLE SPASM). cholecalciferol (VITAMIN D3) 5,000 unit tab Take 5,000 Units by mouth once daily. metoprolol tartrate, short acting, (LOPRESSOR) 25 mg tablet Take 1 tablet by mouth twice daily as needed (tachycardia, palpitations). pramipexole (MIRAPEX) 0.125 mg tablet Take 1 tablet by mouth daily at bedtime. MAGNESIUM ORAL Take 1 tablet by mouth once daily. Estradiol (VAGIFEM) 10 mcg vaginal tablet Use 10 mcg vaginally three times a week. lisinopril (ZESTRIL, PRINIVIL) 10 mg tablet Take 1 tablet by mouth once daily. As needed for BLOOD PRESSURE >140/90 vitamin b complex capsule Take 1 capsule by mouth once daily. Lactobacillus acidophilus (PROBIOTIC ORAL) Take 1 capsule by mouth once daily. No current facility-administered medications for this visit. ALLERGIES Allergen Reactions Penicillins Intolerance Unknown reaction as a child Dextromethorphan Mental Status Change anxiety Macrobid [Nitrofura* Hot, cold, achy Phenylephrine Intolerance anxiety Prednisone Other: See Comments Heart palpitations Adhesive Tape (Kassie* Intolerance Erythema after ribbon tape Social History Tobacco Use Smoking status: Never Smokeless tobacco: Never Vaping Use Vaping status: Never Used Substance Use Topics Alcohol use: Yes Comment: seldom Drug use: No ROS: See HPI PE: BP 136/80 Pulse 80 Temp (Src) 98 (Left Tympanic) Resp 16 Wt 162 lb (73.5kg) LMP 08/10/2012 Gen: AANDOX3, NAD, non-toxic appearing HEENT: PERRLA, EOMs intact b/l, nares without drainage, pharynx without erythema, exudate, lesions, or drainage. Uvula midline. Neck: No LAD, no thyromegaly, no meningismus. CV: RRR, no murmur Lungs: CTA b/l, no wheezing Skin: No rashes, lesions, or wounds on exposed skin. No edema, normal pulses ASSESSMENT/PLAN: 1. Myalgia - ICD9: 729.1, ICD10: M79.10 (primary diagnosis) (more content not included)... [facility] 03-30-2024 History of Presen t illness Narrative CC: Doreen Betancur is a 64 year old female who presents to the office for follow up HPI: Still struggling with stiffness in joints and aching in the muscles, diffusely. Has been occurring since being on chemotherapy as well as on Femara. Has at least 1 more year of this medication for hormone blockade- she is unsure if she will continue it further on. Hx of breast cancer x 2 separate episodes. Mood, currently taking zoloft 50 mg a day, wondering if dose needs to go up. Struggles mostly with her depression in the winter months. Does know about light box therapy as well that she can use. No SI or HI. Currently mood is doing well. BPPV, balance concerns. Will be having therapy on this in the next few weeks- has had to delay the vestibular PHYSICAL THERAPY since her truck hasn't been drivable and not able to get there. PAST MEDICAL HISTORY 05/2023: Abnormality of ascending aorta Comment: borderline dilation 3.8 cm No date: Anxiety 05/27/2005: Malignant neoplasm of breast (female), unspecified site Comment: right breast No date: Vitamin D deficiency PAST SURGICAL HISTORY No date: BREAST RECONSTRUCTION; Right No date: DELIVERY ONLY Comment: times four 12/11/2014: COLONOSCOPY FLX DX W/COLLJ SPEC WHEN PFRMD Comment: Repeat 2024: DILATION & CURETTAGE DX&/THER NONOBSTETRIC 07/05/2013: LAPAROSCOPY W/RMVL ADNEXAL STRUCTURES Comment: Laprascopic BSO h/o breast ca 1998(?): LIG/TRNSXJ FLP TUBE ABDL/VAG APPR UNI/BI 10/11/2019: MAST MODF RAD W/AX LYMPH NOD W/WO PECT/VICKY MIN; Right Comment: Dr. Arceo, [facility] 06/17/2005: PAST SURGICAL HISTORY OF Comment: lumpectomy and removal of lymph nodes 2018: PAST SURGICAL HISTORY OF Comment: Laser surgery vaginal Current Outpatient Medications Medication Sig DULoxetine (CYMBALTA) 60 mg capsule Take 1 capsule by mouth once daily. levothyroxine (LEVOXYL) 75 mcg tablet Take 1 tablet by mouth once daily. Take daily in the morning before eating, Take on empty stomach. For Thyroid sertraline (ZOLOFT) 50 mg tablet Take 1.5 tablets by mouth once daily. meclizine (ANTIVERT) 12.5 mg tab Take 1 tablet by mouth every 6 hours as needed (dizziness). letrozole (FEMARA) 2.5 mg tablet Take 1 tablet by mouth once daily. benzonatate (TESSALON PERLE) 100 mg capsule Take 2 capsules by mouth three times a day as needed. busPIRone (BUSPAR) 7.5 mg tablet Take 1 tablet by mouth three times a day as needed. triamcinolone acetonide (KENALOG) 0.5 % cream Apply 1 application to affected area two times a day. For rash/itching. Apply sparingly. Avoid face/skin fold. ezetimibe (ZETIA) 10 mg tablet Take 1 tablet by mouth once daily. At supper or bedtime clonazePAM (KLONOPIN) 0.5 mg tablet Take 1 tablet by mouth twice daily as needed for anxiety for up to 30 days. cyclobenzaprine (FLEXERIL) 10 mg tablet Take 1 tablet by mouth every 8 hours as needed for muscle spasm or pain (FOR PAIN OR MUSCLE SPASM). cholecalciferol (VITAMIN D3) 5,000 unit tab Take 5,000 Units by mouth once daily. metoprolol tartrate, short acting, (LOPRESSOR) 25 mg tablet Take 1 tablet by mouth twice daily as needed (tachycardia, palpitations). pramipexole (MIRAPEX) 0.125 mg tablet Take 1 tablet by mouth daily at bedtime. MAGNESIUM ORAL Take 1 tablet by mouth once daily. Estradiol (VAGIFEM) 10 mcg vaginal tablet Use 10 mcg vaginally three times a week. lisinopril (ZESTRIL, PRINIVIL) 10 mg tablet Take 1 tablet by mouth once daily. As needed for BLOOD PRESSURE >140/90 vitamin b complex capsule Take 1 capsule by mouth once daily. Lactobacillus acidophilus (PROBIOTIC ORAL) Take 1 capsule by mouth once daily. No current facility-administered medications for this visit. ALLERGIES Allergen Reactions Penicillins Intolerance Unknown reaction as a child Dextromethorphan Mental Status Change anxiety Macrobid [Nitrofura* Hot, cold, achy Phenylephrine Intolerance anxiety Prednisone Other: See Comments Heart palpitations Adhesive Tape (Kassie* Intolerance Erythema after ribbon tape Social History Tobacco Use Smoking status: Never Smokeless tobacco: Never Vaping Use Vaping status: Never Used Substance Use Topics Alcohol use: Yes Comment: seldom Drug use: No ROS: See HPI PE: BP 136/80 Pulse 80 Temp (Src) 98 (Left Tympanic) Resp 16 Wt 162 lb (73.5kg) LMP 08/10/2012 Gen: A&OX3, NAD, non-toxic appearing HEENT: PERRLA, EOMs intact b/l, nares without drainage, pharynx without erythema, exudate, lesions, or drainage. Uvula midline. Neck: No LAD, no thyromegaly, no meningismus. CV: RRR, no murmur Lungs: CTA b/l, no wheezing Skin: No rashes, lesions, or wounds on exposed skin. No edema, normal pulses ASSESSMENT/PLAN: 1. Myalgia - ICD9: 729.1, ICD10: M79.10 (primary diagnosis) Labs as ordered Worse since having chemotherapy for breast Cancer and being on the femara medication - VITAMIN B12 - VITAMIN D 25 HYDROXY - COMPREHENSIVE METABOLIC PANEL - MAGNESIUM 2. Hypothyroidism, acquired - ICD9: 244.9, ICD10: E03.9 - Instructed patient on importance of taking on an empty stomach either first thing in the morning or at bedtime. - continue current dose of Synthroid 3. Iron deficiency anemia due to chronic blood loss - ICD9: 280.0, ICD10: D50.0 Stable Recheck labs in 3 months. - COMPLETE BLOOD COUNT - IRON AND TIBC 4. Dyslipidemia - ICD9: 272.4, ICD10: E78.5 - Control undetermined, due for labs - Counseled on healthy diet and regular exercise - Discussed need for and benefit of weight loss. BMI 28.70 kg/(m^2) - COMPLETE BLOOD COUNT - LIPID PANEL BASIC 5. Anxiety and depression - ICD9: 300.00, 311, ICD10: F41.9, F32.A Increase dose of zoloft to 100 mg in the end Mar or early Apr in preparation for winter depression that she usually struggles with. Maintain this dose until October and then can try to taper back down to 50 mg a day again Light box therapy for light as well in the winter 6. Vertigo - ICD9: 780.4, ICD10: R42 Start on vestibular PT 7. Vitamin D deficiency - ICD9: 268.9, ICD10: E55.9 Continue supplement 8. Fatigue, unspecified type - ICD9: 780.79, ICD10: R53.83 Recheck labs - VITAMIN B12 - VITAMIN D 25 HYDROXY - COMPREHENSIVE METABOLIC PANEL - COMPLETE BLOOD COUNT 9. Hyperglycemia - ICD9: 790.29, ICD10: R73.9 - HEMOGLOBIN A1C Ham Martinez DO Return if no improvement. Follow up with Ham Martinez DO. To ER if develops chest pain, shortness of breath. Discussed risks, benefits, alternatives, and potential side effects of medications. Patient/Guardian expressed understanding and agreed with the plan. See patient instructions. Ham Martinez DO [address] [place] [address] documented in this encounter [facility] 03-29-2024 Telephone encounter Note Patient has been identified by name and date of : Patient phones for refill(s): Requested Prescriptions Pending Prescriptions Disp Refills DULoxetine (CYMBALTA) 60 mg capsule 30 capsule 3 Sig: Take 1 capsule by mouth once daily. levothyroxine (LEVOXYL) 75 mcg tablet 30 tablet 3 Sig: Take 1 tablet by mouth once daily. Take daily in the morning before eating, Take on empty stomach. For Thyroid Date of last office visit in primary care: 02/08/2024 Date of next office visit in primary care: 03/30/2024 Please advise. Thank you. Jess Lowery LPN. \ [facility] 03-29-2024 Miscellaneous Notes Patient has been identified by name and date of : Patient phones for refill(s): Requested Prescriptions Pending Prescriptions Disp Refills DULoxetine (CYMBALTA) 60 mg capsule 30 capsule 3 Sig: Take 1 capsule by mouth once daily. levothyroxine (LEVOXYL) 75 mcg tablet 30 tablet 3 Sig: Take 1 tablet by mouth once daily. Take daily in the morning before eating, Take on empty stomach. For Thyroid Date of last office visit in primary care: 02/08/2024 Date of next office visit in primary care: 03/30/2024 Please advise. Thank you. Jess Lowery LPN. \ documented in this encounter [facility] 02-29-2024 Telephone encounter Note Prescription Refill Information The patient has been identified by name and date of : Yes Caregiver verified no other encounters exist for this prescription request: Yes Caregiver confirmed with patient/requestor that no other refills are due, in the near future, with this provider at this time: Yes The last office visit in the department: 02/08/24 Does the patient have a future office visit with this provider/department: Yes Requested Prescriptions Pending Prescriptions Disp Refills sertraline (ZOLOFT) 50 mg tablet 135 tablet 1 Sig: Take 1.5 tablets by mouth once daily. Renita Bruner LPN February 29, 2024 11:34 AM [facility] 02-29-2024 Miscellaneous Notes Prescription Refill Information The patient has been identified by name and date of : Yes Caregiver verified no other encounters exist for this prescription request: Yes Caregiver confirmed with patient/requestor that no other refills are due, in the near future, with this provider at this time: Yes The last office visit in the department: 02/08/24 Does the patient have a future office visit with this provider/department: Yes Requested Prescriptions Pending Prescriptions Disp Refills sertraline (ZOLOFT) 50 mg tablet 135 tablet 1 Sig: Take 1.5 tablets by mouth once daily. Renita Bruner LPN February 29, 2024 11:34 AM documented in this encounter [facility] 02-11-2024 Telephone encounter Note Pt notified of such. [facility] 02-11-2024 Miscellaneous Notes Pt notified of such. Please call and let her know that I would like her to start on 5 days of antibiotic as below Ham Martinez DO The following approved medication requests have been transmitted electronically. Requested Prescriptions Signed Prescriptions Disp Refills ciprofloxacin HCl (CIPRO) 500 mg tablet 10 tablet 0 Sig: Take 1 tablet by mouth two times a day for 5 days. Authorizing Provider: HAM MARTINEZ DO Phoned patient and went over results, notes from Dr Martinez with understanding. Patient said having no flank pain, she did have urgency to void but said that is gone now, no visible blood. Patient uses [facility] for her pharmacy. Notify patient with what PCP wants to do. Please inform patient that her UA shows concerns for a kidney stone or UTI as well. Is she having any symptoms? Ham Martinez DO documented in this encounter [facility] 02-10-2024 Telephone encounter Note Please call and let her know that I would like her to start on 5 days of antibiotic as below Ham Martinez DO The following approved medication requests have been transmitted electronically. Requested Prescriptions Signed Prescriptions Disp Refills ciprofloxacin HCl (CIPRO) 500 mg tablet 10 tablet 0 Sig: Take 1 tablet by mouth two times a day for 5 days. Authorizing Provider: HAM MARTINEZ DO [facility] 02-10-2024 Telephone encounter Note Phoned patient and went over results, notes from Dr Martinez with understanding. Patient said having no flank pain, she did have urgency to void but said that is gone now, no visible blood. Patient uses [facility] for her pharmacy. Notify patient with what PCP wants to do. [facility] 02-10-2024 Telephone encounter Note Please inform patient that her UA shows concerns for a kidney stone or UTI as well. Is she having any symptoms? Ham Martinez DO [facility] 02-08-2024 Note HNO ID: [id number] Author: HAM MARTINEZ DO Service: ? Author Type: Physician Type: Progress Notes Filed: 02/09/2024 07:15 Note Text: CC: Doreen Betancur is a 64 year old female who presents to the office for follow up HPI: Off and on feeling of being lightheaded and dizzy, has been occurring for 2-3 weeks now. Does live in an old farmhouse. Has been sleeping in the camper and has been outside more. They has water in their basement at this time. No recent URI symptoms. No fevers or chills. Worse in the AM. Only lasts up to 15 minutes then seems to go away on its own. Sometimes associated with nauseated feeling. No recent falls or head or neck injuries. Mood, is going to be starting EMDR likely soon. Is seeing therapist. Chronic anxiety which is usually made worse when her daughter Becky is struggling with something as well. Vitamin d deficiency, taking supplement Struggling to lose the weight that she gained during her breast cancer treatment. Still is trying to be physically active regularly PAST MEDICAL HISTORY Diagnosis Date Abnormality of ascending aorta 05/2023 borderline dilation 3.8 cm Anxiety Malignant neoplasm of breast (female), unspecified site 05/27/2005 right breast Vitamin D deficiency PAST SURGICAL HISTORY Procedure Laterality Date BREAST RECONSTRUCTION Right DELIVERY ONLY times four COLONOSCOPY FLX DX W/COLLJ SPEC WHEN PFRMD 12/11/2014 Repeat 2024 DILATION AND CURETTAGE DXAND/THER NONOBSTETRIC LAPAROSCOPY W/RMVL ADNEXAL STRUCTURES 07/05/2013 Laprascopic BSO h/o breast ca LIG/TRNSXJ FLP TUBE ABDL/VAG APPR UNI/BI 1998(?) MAST MODF RAD W/AX LYMPH NOD W/WO PECT/VICKY MIN Right 10/11/2019 Dr. Arceo, [facility] PAST SURGICAL HISTORY OF 06/17/2005 lumpectomy and removal of lymph nodes PAST SURGICAL HISTORY OF 2018 Laser surgery vaginal Current Outpatient Medications Medication Sig meclizine (ANTIVERT) 12.5 mg tab Take 1 tablet by mouth every 6 hours as needed (dizziness). letrozole (FEMARA) 2.5 mg tablet Take 1 tablet by mouth once daily. DULoxetine (CYMBALTA) 60 mg capsule Take 1 capsule by mouth once daily. levothyroxine (LEVOXYL) 75 mcg tablet Take 1 tablet by mouth once daily. Take daily in the morning before eating, Take on empty stomach. For Thyroid sertraline (ZOLOFT) 50 mg tablet Take 1.5 tablets by mouth once daily. benzonatate (TESSALON PERLE) 100 mg capsule Take 2 capsules by mouth three times a day as needed. busPIRone (BUSPAR) 7.5 mg tablet Take 1 tablet by mouth three times a day as needed. triamcinolone acetonide (KENALOG) 0.5 % cream Apply 1 application to affected area two times a day. For rash/itching. Apply sparingly. Avoid face/skin fold. ezetimibe (ZETIA) 10 mg tablet Take 1 tablet by mouth once daily. At supper or bedtime clonazePAM (KLONOPIN) 0.5 mg tablet Take 1 tablet by mouth twice daily as needed for anxiety for up to 30 days. cyclobenzaprine (FLEXERIL) 10 mg tablet Take 1 tablet by mouth every 8 hours as needed for muscle spasm or pain (FOR PAIN OR MUSCLE SPASM). cholecalciferol (VITAMIN D3) 5,000 unit tab Take 5,000 Units by mouth once daily. metoprolol tartrate, short acting, (LOPRESSOR) 25 mg tablet Take 1 tablet by mouth twice daily as needed (tachycardia, palpitations). pramipexole (MIRAPEX) 0.125 mg tablet Take 1 tablet by mouth daily at bedtime. MAGNESIUM ORAL Take 1 tablet by mouth once daily. Estradiol (VAGIFEM) 10 mcg vaginal tablet Use 10 mcg vaginally three times a week. lisinopril (ZESTRIL, PRINIVIL) 10 mg tablet Take 1 tablet by mouth once daily. As needed for BLOOD PRESSURE >140/90 vitamin b complex capsule Take 1 capsule by mouth once daily. Lactobacillus acidophilus (PROBIOTIC ORAL) Take 1 capsule by mouth once daily. No current facility-administered medications for this visit. ALLERGIES Allergen Reactions Penicillins Intolerance Unknown reaction as a child Dextromethorphan Mental Status Change anxiety Macrobid [Nitrofura* Hot, cold, achy Phenylephrine Intolerance anxiety Prednisone Other: See Comments Heart palpitations Adhesive Tape (Kassie* Intolerance Erythema after ribbon tape Social History Tobacco Use Smoking status: Never Smokeless tobacco: Never Vaping Use Vaping Use: Never used Substance Use Topics Alcohol use: Yes Comment: seldom Drug use: No ROS: See HPI PE: BP 138/86 Pulse 80 Temp (Src) 97.6 (Right Tympanic) Resp 16 Wt 162 lb (73.5kg) LMP 08/10/2012 Gen: AANDOX3, NAD, non-toxic appearing HEENT: PERRLA, EOMs intact b/l, nares without drainage, pharynx without erythema, exudate, lesions, or drainage. Uvula midline. MMM, EAC and TM wnl b/l Neck: No LAD, no thyromegaly, no meningismus. CV: RRR, no murmur Lungs: CTA b/l, no wheezing No edema, normal pulses Skin: No rashes, lesions, or wounds on exposed skin. ASSESSMENT/PLAN: 1. Vertigo - ICD9: 780.4, ICD10: R42 (primary diagnosis) Refe (more content not included)... [facility] 02-08-2024 History of Presen t illness Narrative CC: Doreen Betancur is a 64 year old female who presents to the office for follow up HPI: Off and on feeling of being lightheaded and dizzy, has been occurring for 2-3 weeks now. Does live in an old farmhouse. Has been sleeping in the camper and has been outside more. They has water in their basement at this time. No recent URI symptoms. No fevers or chills. Worse in the AM. Only lasts up to 15 minutes then seems to go away on its own. Sometimes associated with nauseated feeling. No recent falls or head or neck injuries. Mood, is going to be starting EMDR likely soon. Is seeing therapist. Chronic anxiety which is usually made worse when her daughter Becky is struggling with something as well. Vitamin d deficiency, taking supplement Struggling to lose the weight that she gained during her breast cancer treatment. Still is trying to be physically active regularly PAST MEDICAL HISTORY Diagnosis Date Abnormality of ascending aorta 05/2023 borderline dilation 3.8 cm Anxiety Malignant neoplasm of breast (female), unspecified site 05/27/2005 right breast Vitamin D deficiency PAST SURGICAL HISTORY Procedure Laterality Date BREAST RECONSTRUCTION Right DELIVERY ONLY times four COLONOSCOPY FLX DX W/COLLJ SPEC WHEN PFRMD 12/11/2014 Repeat 2024 DILATION & CURETTAGE DX&/THER NONOBSTETRIC LAPAROSCOPY W/RMVL ADNEXAL STRUCTURES 07/05/2013 Laprascopic BSO h/o breast ca LIG/TRNSXJ FLP TUBE ABDL/VAG APPR UNI/BI 1998(?) MAST MODF RAD W/AX LYMPH NOD W/WO PECT/VICKY MIN Right 10/11/2019 Dr. Arceo, [facility] PAST SURGICAL HISTORY OF 06/17/2005 lumpectomy and removal of lymph nodes PAST SURGICAL HISTORY OF 2018 Laser surgery vaginal Current Outpatient Medications Medication Sig meclizine (ANTIVERT) 12.5 mg tab Take 1 tablet by mouth every 6 hours as needed (dizziness). letrozole (FEMARA) 2.5 mg tablet Take 1 tablet by mouth once daily. DULoxetine (CYMBALTA) 60 mg capsule Take 1 capsule by mouth once daily. levothyroxine (LEVOXYL) 75 mcg tablet Take 1 tablet by mouth once daily. Take daily in the morning before eating, Take on empty stomach. For Thyroid sertraline (ZOLOFT) 50 mg tablet Take 1.5 tablets by mouth once daily. benzonatate (TESSALON PERLE) 100 mg capsule Take 2 capsules by mouth three times a day as needed. busPIRone (BUSPAR) 7.5 mg tablet Take 1 tablet by mouth three times a day as needed. triamcinolone acetonide (KENALOG) 0.5 % cream Apply 1 application to affected area two times a day. For rash/itching. Apply sparingly. Avoid face/skin fold. ezetimibe (ZETIA) 10 mg tablet Take 1 tablet by mouth once daily. At supper or bedtime clonazePAM (KLONOPIN) 0.5 mg tablet Take 1 tablet by mouth twice daily as needed for anxiety for up to 30 days. cyclobenzaprine (FLEXERIL) 10 mg tablet Take 1 tablet by mouth every 8 hours as needed for muscle spasm or pain (FOR PAIN OR MUSCLE SPASM). cholecalciferol (VITAMIN D3) 5,000 unit tab Take 5,000 Units by mouth once daily. metoprolol tartrate, short acting, (LOPRESSOR) 25 mg tablet Take 1 tablet by mouth twice daily as needed (tachycardia, palpitations). pramipexole (MIRAPEX) 0.125 mg tablet Take 1 tablet by mouth daily at bedtime. MAGNESIUM ORAL Take 1 tablet by mouth once daily. Estradiol (VAGIFEM) 10 mcg vaginal tablet Use 10 mcg vaginally three times a week. lisinopril (ZESTRIL, PRINIVIL) 10 mg tablet Take 1 tablet by mouth once daily. As needed for BLOOD PRESSURE >140/90 vitamin b complex capsule Take 1 capsule by mouth once daily. Lactobacillus acidophilus (PROBIOTIC ORAL) Take 1 capsule by mouth once daily. No current facility-administered medications for this visit. ALLERGIES Allergen Reactions Penicillins Intolerance Unknown reaction as a child Dextromethorphan Mental Status Change anxiety Macrobid [Nitrofura* Hot, cold, achy Phenylephrine Intolerance anxiety Prednisone Other: See Comments Heart palpitations Adhesive Tape (Kassie* Intolerance Erythema after ribbon tape Social History Tobacco Use Smoking status: Never Smokeless tobacco: Never Vaping Use Vaping Use: Never used Substance Use Topics Alcohol use: Yes Comment: seldom Drug use: No ROS: See HPI PE: BP 138/86 Pulse 80 Temp (Src) 97.6 (Right Tympanic) Resp 16 Wt 162 lb (73.5kg) LMP 08/10/2012 Gen: A&OX3, NAD, non-toxic appearing HEENT: PERRLA, EOMs intact b/l, nares without drainage, pharynx without erythema, exudate, lesions, or drainage. Uvula midline. MMM, EAC and TM wnl b/l Neck: No LAD, no thyromegaly, no meningismus. CV: RRR, no murmur Lungs: CTA b/l, no wheezing No edema, normal pulses Skin: No rashes, lesions, or wounds on exposed skin. ASSESSMENT/PLAN: 1. Vertigo - ICD9: 780.4, ICD10: R42 (primary diagnosis) Referral to vestibular PHYSICAL THERAPY for treatment/assessment. Concerns that she has BPPV based on her symptoms Okay for rx prn until able to be seen in office If not improving, then check CT brain and referral to ENT - CONSULT TO PHYSICAL THERAPY - MECLIZINE 12.5 MG TABLET 2. Dizziness - ICD9: 780.4, ICD10: R42 Referral to vestibular PHYSICAL THERAPY for treatment/assessment. Concerns that she has BPPV based on her symptoms Okay for rx prn until able to be seen in office If not improving, then check CT brain and referral to ENT 3. Anxiety and depression - ICD9: 300.00, 311, ICD10: F41.9, F32.A Stable 4. Hypothyroidism, acquired - ICD9: 244.9, ICD10: E03.9 - Instructed patient on importance of taking on an empty stomach either first thing in the morning or at bedtime. Ham Martinez, DO Return if no improvement. Follow up with Ham Martinez DO. To ER if develops chest pain, shortness of breath. Discussed risks, benefits, alternatives, and potential side effects of medications. Patient/Guardian expressed understanding and agreed with the plan. See patient instructions. Ham Martinez DO [address] [place] [address] documented in this encounter [facility] 12-14-2023 Telephone encounter Note Pt. informed via my Chart. [facility] 12-14-2023 Miscellaneous Notes Pt. informed via my Chart. Please let her know that I would have her do the monitor if she is still having any heart palpitations or tachycardia symptoms Ham Martinez DO Images from the original note were not included. Please see pt mychart message regarding heart monitor. ANTHONY Loomis You3 days ago AH Good morning, I have done my stress test and it appears that I am normal. Do I still need to wear the monitor? I thought I was to do the treadmill then go from there. Thanks so much. Doreen documented in this encounter [facility] 12-14-2023 Telephone encounter Note Please let her know that I would have her do the monitor if she is still having any heart palpitations or tachycardia symptoms Ham Martinez DO [facility] 12-14-2023 Telephone encounter Note Images from the original note were not included. Please see pt mychart message regarding heart monitor. ANTHONY Loomis You3 days ago AH Good morning, I have done my stress test and it appears that I am normal. Do I still need to wear the monitor? I thought I was to do the treadmill then go from there. Thanks so much. Doreen [facility] 12-08-2023 Telephone encounter Note Pt. informed via my Chart. [facility] 12-08-2023 Miscellaneous Notes Pt. informed via my Chart. Please inform patient that overall her cardiac stress testing was normal appearing Ham Martinez DO documented in this encounter [facility] 12-08-2023 Telephone encounter Note Please inform patient that overall her cardiac stress testing was normal appearing Ham Martinez DO [facility] 12-04-2023 Telephone encounter Note Left message regarding reminder for stress test on Thursday and given instructions including to not take her metoprolol. [facility] 12-04-2023 Miscellaneous Notes Left message regarding reminder for stress test on Thursday and given instructions including to not take her metoprolol. documented in this encounter [facility] 12-01-2023 Telephone encounter Note Pt. informed via my Chart. [facility] 12-01-2023 Miscellaneous Notes Pt. informed via my Chart. Please let patient know that her knee XRs showed mild osteoarthritis. Recommend trial of treatment discussed with Dr. Martinez. If not improving, consider additional bracing or consult to ortho. Ainsley Trinidad PA-C 12/01/2023 documented in this encounter [facility] 12-01-2023 Telephone encounter Note Please let patient know that her knee XRs showed mild osteoarthritis. Recommend trial of treatment discussed with Dr. Martinez. If not improving, consider additional bracing or consult to ortho. Ainsley Trinidad PA-C 12/01/2023 [facility] Work Phone: 11-25-2023 History of Presen t illness Narrative Radiology Service Progress Note PATIENT NAME: Doreen Betancur DATE OF SERVICE: November 25, 2023 TIME: 2:24 PM PATIENT IDENTITY VERIFICATION COMPLETED USING TWO (2) IDENTIFIERS: Name and Date of confirmed by patient verbally. FALL SCREENING: Has the patient had 2 falls in the last year or 1 fall with injury or currently using an Ambulatory Assistive Device (Walker, Cane, Wheelchair, Crutches, etc.)? No PATIENT GENDER DATA: Female. status: : No status: NO. PATIENT RELEVANT IMPLANT DATA REVIEWED: Yes PATIENT PRESENTS WITH AN IMPLANTABLE OR ATTACHED TESTER/LIFT TRUCKER: No RADIOLOGY DEPARTMENT: General X-ray: Exam(s) Completed: Lower Extremity X-Ray(s): Knee, AP / Lat / Tunne / Merchant Bilateral PERIPHERAL IV DATA: Not applicable SIGNED BY: RT Kain(R) November 25, 2023 2:24 PM documented in this encounter [facility] 11-25-2023 Instructions Ham Martinez DO - 11/25/2023 1:55 PM EDT Benadryl liquid or chewable 25 mg every 4 hours if needed. Vitamin B complex- 1 per day gummy, vitamin b6 50-100 mg Iron - slo fe 45-67 mg once a day with food Biotin 1000 mg or less a day Vitamin D3 2000 international unit(s) a day All vitamins must be lunch or later. documented in this encounter [facility] 11-25-2023 History of Presen t illness Narrative PHQ-9 Score: 6 (Mild Depression) Continuing current treatment plan CC: Doreen Betancur is a 63 year old female who presents to the office for follow up HPI: Bilateral knee pain, worse with kneeling or use such as prolonged standing or walking. No known injuries. Does get knee swelling in joint. No redness. No falls. Hasn't tried knee bracing or topical rx. Has tried tylenol and NSAIDs. B/l ear pressure, hearing diminished. She is wondering if any wax in ears,. No pain Mood, stable. Taking klonpin as needed for panic syjpmtmos as well as cymbalta and zoloft. She is wondering if she can try a decreased dose of zoloft again since she has recent been doing well with nice weather and getting outside more. + tachycardia, worse with walking or exertion. Also fatigue with exertion. Some dyspnea with exertion. No chest pain or syncope. Had ECHO recently in May/Jun which was overall stable. PAST MEDICAL HISTORY Diagnosis Date Abnormality of ascending aorta 05/2023 borderline dilation 3.8 cm Anxiety Malignant neoplasm of breast (female), unspecified site 05/27/2005 right breast Vitamin D deficiency PAST SURGICAL HISTORY Procedure Laterality Date BREAST RECONSTRUCTION Right DELIVERY ONLY times four COLONOSCOPY FLX DX W/COLLJ SPEC WHEN PFRMD 12/11/2014 Repeat 2024 DILATION & CURETTAGE DX&/THER NONOBSTETRIC LAPAROSCOPY W/RMVL ADNEXAL STRUCTURES 07/05/2013 Laprascopic BSO h/o breast ca LIG/TRNSXJ FLP TUBE ABDL/VAG APPR UNI/BI 1998(?) MAST MODF RAD W/AX LYMPH NOD W/WO PECT/VICKY MIN Right 10/11/2019 Dr. Arceo, [facility] PAST SURGICAL HISTORY OF 06/17/2005 lumpectomy and removal of lymph nodes PAST SURGICAL HISTORY OF 2017 Laser surgery vaginal Current Outpatient Medications Medication Sig letrozole (FEMARA) 2.5 mg tablet Take 1 tablet by mouth once daily. benzonatate (TESSALON PERLE) 100 mg capsule Take 2 capsules by mouth three times a day as needed. busPIRone (BUSPAR) 7.5 mg tablet Take 1 tablet by mouth three times a day as needed. triamcinolone acetonide (KENALOG) 0.5 % cream Apply 1 application to affected area two times a day. For rash/itching. Apply sparingly. Avoid face/skin fold. ezetimibe (ZETIA) 10 mg tablet Take 1 tablet by mouth once daily. At supper or bedtime clonazePAM (KLONOPIN) 0.5 mg tablet Take 1 tablet by mouth twice daily as needed for anxiety for up to 30 days. cyclobenzaprine (FLEXERIL) 10 mg tablet Take 1 tablet by mouth every 8 hours as needed for muscle spasm or pain (FOR PAIN OR MUSCLE SPASM). cholecalciferol (VITAMIN D3) 5,000 unit tab Take 5,000 Units by mouth once daily. metoprolol tartrate, short acting, (LOPRESSOR) 25 mg tablet Take 1 tablet by mouth twice daily as needed (tachycardia, palpitations). pramipexole (MIRAPEX) 0.125 mg tablet Take 1 tablet by mouth daily at bedtime. MAGNESIUM ORAL Take 1 tablet by mouth once daily. Estradiol (VAGIFEM) 10 mcg vaginal tablet Use 10 mcg vaginally three times a week. lisinopril (ZESTRIL, PRINIVIL) 10 mg tablet Take 1 tablet by mouth once daily. As needed for BLOOD PRESSURE >140/90 vitamin b complex capsule Take 1 capsule by mouth once daily. Lactobacillus acidophilus (PROBIOTIC ORAL) Take 1 capsule by mouth once daily. DULoxetine (CYMBALTA) 60 mg capsule Take 1 capsule by mouth once daily. levothyroxine (LEVOXYL) 75 mcg tablet Take 1 tablet by mouth once daily. Take daily in the morning before eating, Take on empty stomach. For Thyroid triamcinolone acetonide (KENALOG) 0.1 % cream Apply 1 application to affected area two times a day for 7 days. Apply sparingly to area for rash/itching. nystatin (MYCOSTATIN) cream Apply to affected area two times a day for 7 days. To rash sertraline (ZOLOFT) 50 mg tablet Take 1.5 tablets by mouth once daily. No current facility-administered medications for this visit. ALLERGIES Allergen Reactions Penicillins Intolerance Unknown reaction as a child Dextromethorphan Mental Status Change anxiety Macrobid [Nitrofura* Hot, cold, achy Phenylephrine Intolerance anxiety Prednisone Other: See Comments Heart palpitations Adhesive Tape (Kassie* Intolerance Erythema after ribbon tape Social History Tobacco Use Smoking status: Never Smokeless tobacco: Never Vaping Use Vaping Use: Never used Substance Use Topics Alcohol use: Yes Comment: seldom Drug use: No ROS: See HPI PE: BP 120/80 Pulse 80 Temp (Src) 97.8 (Left Tympanic) Resp 12 Wt 164 lb (74.4kg) LMP 08/10/2012 Gen: A&OX3, NAD, non-toxic appearing HEENT: PERRLA, EOMs intact b/l, nares without drainage, pharynx without erythema, exudate, lesions, or drainage. Uvula midline. EAC wnl, TM with serous effusion b/l ears Neck: No LAD, no thyromegaly, no meningismus. CV: RRR, no murmur Lungs: CTA b/l, no wheezing Skin: No rashes, lesions, or wounds on exposed skin. B/l knee effusions without instability or erythema of skin Gait is stable ASSESSMENT/PLAN: 1. Tachycardia - ICD9: 785.0, ICD10: R00.0 (primary diagnosis) Need for ECG today in office and stress testing as ordered. She would like to try treadmill stress testing at this time. Unsure of cause of symptoms. - EXERCISE STRESS ECG (WITHOUT IMAGING) - ECG COMPLETE - OUTSIDE VENDOR CARDIAC OUTPATIENT EXTENDED RHYTHM RECORDING (WITHOUT TELEMETRY) 2. Anxiety and depression - ICD9: 300.00, 311, ICD10: F41.9, F32.A Will decrease dose of zoloft back down to 50 mg a day and continue Cymbalta, no SI or HI - DULOXETINE 60 MG CAPSULE,DELAYED RELEASE 3. Hypothyroidism, acquired - ICD9: 244.9, ICD10: E03.9 - Instructed patient on importance of taking on an empty stomach either first thing in the morning or at bedtime. - Increase Synthroid dose to 0.075 mg - LEVOTHYROXINE 50 MCG TABLET - LEVOTHYROXINE 75 MCG TABLET 4. SOB (shortness of breath) - ICD9: 786.05, ICD10: R06.02 Need for ECG today in office and stress testing as ordered. She would like to try treadmill stress testing at this time. Unsure of cause of symptoms. - EXERCISE STRESS ECG (WITHOUT IMAGING) - ECG COMPLETE - OUTSIDE VENDOR CARDIAC OUTPATIENT EXTENDED RHYTHM RECORDING (WITHOUT TELEMETRY) 5. Palpitations - ICD9: 785.1, ICD10: R00.2 Need for ECG today in office and stress testing as ordered. She would like to try treadmill stress testing at this time. Unsure of cause of symptoms. - EXERCISE STRESS ECG (WITHOUT IMAGING) - ECG COMPLETE - OUTSIDE VENDOR CARDIAC OUTPATIENT EXTENDED RHYTHM RECORDING (WITHOUT TELEMETRY) 6. Chronic pain of both knees - ICD9: 719.46, 338.29, ICD10: M25.561, M25.562, G89.29 Xray as ordered Trial of topical NSAID Need to consider use of knee bracing and exercises. - XR KNEE GENERAL 4V AP BOTH/PA BOTH/LAT/MERC BILATERAL 7. Rash - ICD9: 782.1, ICD10: R21 - TRIAMCINOLONE ACETONIDE 0.1 % TOPICAL CREAM - NYSTATIN 100,000 UNIT/GRAM TOPICAL CREAM 8. Acute effusion of both middle ears - ICD9: 381.00, ICD10: H65.193 - Will begin nasal steroid spray as d/w her today and oral antihistamine Ham Martinez DO Return if no improvement. Follow up with Ham Martinez DO. To ER if develops chest pain, shortness of breath. Discussed risks, benefits, alternatives, and potential side effects of medications. Patient/Guardian expressed understanding and agreed with the plan. See patient instructions. Ham Martinez DO [address] [place] [address] documented in this encounter [facility] 11-25-2023 History of Presen t illness Narrative Chief Complaint Patient presents with: Established Patient HPI: Doreen Betancur is a 63 year old female who presents here today for follow up breast cancer. Per Dr. 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 Status post 6 doses of paclitaxel given on an every-2- week basis with growth factor support along with trastuzumab (CALGB [id number]). Radiation therapy was completed in 11/2005. She had been on tamoxifen since the second week of 12/2005. Finished trastuzumab in June 2006. Completed 5 years' worth of tamoxifen fall 2010. Received injection Zoladex with plan for possible AI therapy, but had significant QUINTANILLA. Decision at that point to hold therapy. Took nearly the whole month for QUINTANILLA to gradually resolve. Underwent lap oophorectomy 06/2013. She was running a weed eater in early March 2019 when a rock was thrown up hitting her in the lateral right breast right along the scar from previous surgery. She developed a tender lump in that area. She underwent diagnostic mammogram and ultrasound which suggested hematoma. She had no skin discoloration. Follow-up breast ultrasound suggested stable findings consistent with hematoma. Repeat ultrasound of the right breast on 08/24/2019 revealed a 1.8 x 2.4 x 1.2 cm lobulated mass in the right breast that was suspicious for malignancy. Biopsy was recommended. Biopsy done 09/02/2019. Pathology: MICROSCOPIC DIAGNOSIS Right breast, ultrasound-guided needle core biopsy: Invasive ductal carcinoma. Nuclear grade - 3/3 Maximal length - 13 mm Other findings - tumor necrosis Reference is made to the patient s previous right breast lumpectomy from 2004 ([id number]) in which invasive, grade 3/3, poorly differentiated ductal carcinoma was identified. ER (clone 6F11) 4% dim ID (clone 16/1E2) 0% Her-2Neu (clone CB11) 0 MRI Breast 09/19/2019: RIGHT BREAST: The breast tissue is scattered fibroglandular densities with no background enhancement. There is a 2.5 cm abnormal enhancing mass in the superior outer aspect of the right breast located approximately 6 cm from the nipple. This does correlate to the area that was biopsied and shown to represent a malignancy. No other abnormal enhancing or abnormal morphologically appearing masses are seen in the right breast. LEFT BREAST: The breast tissue is heterogeneously dense with no background enhancement. There are no abnormal enhancing masses or areas of non-mass enhancement in the left breast. There are no enlarged or abnormal lymph nodes. There is no abnormality in the visualized regions of the chest or liver. IMPRESSION: There is a known malignancy in the right breast. Surgical consultation is recommended as well as radiation oncology and medical oncology consultation. Short-term six-month follow-up mammogram is recommended if the patient and the surgeon opt to do a lumpectomy. Underwent right modified radical mastectomy along with right axillary lymph node dissection on 10/11/2019. Pathology: FROZEN SECTION DIAGNOSIS A. Right axillary sentinel lymph nodes, biopsy: Two out of two lymph nodes negative for carcinoma. MICROSCOPIC DIAGNOSIS A. Right axillary sentinel lymph nodes, biopsy: Three out of three lymph nodes, negative for metastatic carcinoma. B. Right breast, mastectomy: Invasive poorly differentiated ductal carcinoma. See cancer check list below. COMMENT INVASIVE BREAST CANCER SUMMARY: Procedure: Mastectomy Specimen: Type: Total breast Size: 17 x 15 x 5 cm Laterality: Right breast Invasive Tumor: Size of tumor: 2.5 x 2 x 2 cm Focality: Single focus of invasive tumor Histologic type: Invasive ductal carcinoma. Histologic grade (Sri grade): Glandular/tubular differentiation score: 3 Nuclear pleomorphism score: 3 Mitotic count score: 3 Overall grade: 3 (score of 9/9) Lymph-vascular invasion: Not identified Ductal Carcinoma In Situ: Not identified Lobular Carcinoma In Situ: Not identified Tumor extension: Skin: Free of carcinoma Nipple: Free of carcinoma Skeletal muscle: Free of carcinoma Margins Involved by Invasive Carcinoma: None Distance from closest margin: 1.5 mm from superior margin Margins Involved by In Situ Carcinoma: Not applicable Lymph Nodes: Number of sentinel lymph nodes examined: 3 Total number of lymph nodes examined: 10 One non-sentinel lymph node with macrometastatic carcinoma (2.1 cm in greatest dimension). See specimen A for sentinel lymph nodes. Microcalcifications: Not identified Treatment Effect: Unknown Additional Pathologic Findings: Extensive tumor necrosis Ancillary Studies: Previously performed on same tumor ([id number]) ER: positive (4%, dim) ID: negative (0%) [id number]: negative (0) Clinical History: Mass of breast Pathologic Stage: pT2 N1a Mx Previous therapy: 1) AC followed by T 2) Radiation at [facility]. Current therapy: Essence Began aromasin in 2019. Stopped December 2021 d/t hand pain/stiffness. Pt. s/p R JAY JAY 2021 complicated by abd hematoma-I&D 09/17/21. Surgery done at [facility]. Pt. has surgery scheduled May.[id number] with plastics ([facility])-L mastopexy, R revision. No new concerns today. Appetite:Good. Energy level:Good. Denies fevers or recent illness. Resp:denies cough or sob Cardiac:denies chest pain/palpitations GI:denies abd pain, n/v, moving bowels regularly :denies dysuria/hematuria Extrem:denies pain, hand stiffness/pain resolved when stopped aromasin, knee stiffness on femara Endo:+hot flashes I'm just hot all the time. they do not wake pt. at night Neuro:neuropathy resolved to toes/feet Skin:denies rashes/lesions Heme:denies bleeding The ROS is otherwise negative. Past medical history, appointments, medications, allergies reviewed. No changes. EXAM: BP 158/96 Pulse 90 Temp 37 C (98.6 F) (Temporal) Wt 74.1 kg (163 lb 6.4 oz) LMP 08/10/2012 BMI 28.95 kg/m APPEARANCE Well appearing, alert, in no acute distress, well-hydrated, well nourished. HEART RRR with normal S1 and S2, no murmurs LUNG clear to auscultation BREAST FEMALE R recon JAY JAY, no mass/nodule, L no mass/nodule LYMPH NODES No cervical lymphadenopathy, No supraclavicular lymphadenopathy, and No axillary lymphadenopathy. ABDOMEN bowel sounds normoactive, soft, non-tender EXTREMITIES No edema NEURO Awake, alert and oriented x 3, Normal gait, and No involuntary motions. SKIN Skin color, texture, turgor normal, no suspicious rashes or lesions ASSESSMENT/PLAN: 1. Malignant neoplasm of upper-outer quadrant of right breast in female, estrogen receptor positive (HCC) - ICD9: 174.4, V86.0, ICD10: C50.411, Z17.0 (primary diagnosis) Originally diagnosed with a T1c N0 MX, ER+; 50%, ID-<5% and HER-2 overexpressed (FISH average gene copy #13.2 HER-2 to CEP 17 ratio 5.8) infiltrating ductal carcinoma of the right breast. Received 6 cycles of paclitaxel even on an every two-week basis along with growth factor support (CALGB 35356) and trastuzumab. New pT2 pN1a ER 4%, ID negative, HER2 negative (0 on IHC) stage IIB infiltrating ductal carcinoma the right breast. Genetic testing negative. - No concerning findings on exam. - Tolerated aromasin poorly d/t hand stiffness. - Tolerating femara fair d/t knee stiffness. Pt. would like to continue. - Continue femara. Rx done. - Mammogram due February 2024. - Follow up in 6 months. - Pt. aware to call office with any questions/concerns. The patient indicates understanding of these issues and agrees with the plan. All documentation from previous visit of 05/27/23-Dr. Lopez/myself was copied and pasted, documentation has been reviewed and edited as necessary for today's visit. Becca Magana APRN.SYL documented in this encounter [facility] 09-23-2023 Miscellaneous Notes See Telephone note. documented in this encounter [facility] 09-23-2023 Miscellaneous Notes Images from the original note were not included. Doreen Betancur Wstr Famp My Chart Rx Pool I am out of refills for levothyroxine 50 mcg tablet. It says it can not be refilled. I'm not sure what to do. Thank you, Doreen documented in this encounter [facility] 05-27-2023 History of Presen t illness Narrative Chief Complaint Patient presents with: Established Patient HPI: Doreen Betancur is a 63 year old female who presents here today for follow up breast cancer. Per Dr. 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 Status post 6 doses of paclitaxel given on an every-2- week basis with growth factor support along with trastuzumab (CALGB 78553). Radiation therapy was completed in 11/2005. She had been on tamoxifen since the second week of 12/2005. Finished trastuzumab in June 2006. Completed 5 years' worth of tamoxifen fall 2010. Received injection Zoladex with plan for possible AI therapy, but had significant QUINTANILLA. Decision at that point to hold therapy. Took nearly the whole month for QUINTANILLA to gradually resolve. Underwent lap oophorectomy 06/2013. She was running a weed eater in early March 2019 when a rock was thrown up hitting her in the lateral right breast right along the scar from previous surgery. She developed a tender lump in that area. She underwent diagnostic mammogram and ultrasound which suggested hematoma. She had no skin discoloration. Follow-up breast ultrasound suggested stable findings consistent with hematoma. Repeat ultrasound of the right breast on 08/24/2019 revealed a 1.8 x 2.4 x 1.2 cm lobulated mass in the right breast that was suspicious for malignancy. Biopsy was recommended. Biopsy done 09/02/2019. Pathology: MICROSCOPIC DIAGNOSIS Right breast, ultrasound-guided needle core biopsy: Invasive ductal carcinoma. Nuclear grade - 3/3 Maximal length - 13 mm Other findings - tumor necrosis Reference is made to the patient s previous right breast lumpectomy from 2004 ([id number]) in which invasive, grade 3/3, poorly differentiated ductal carcinoma was identified. ER (clone 6F11) 4% dim ID (clone 16/1E2) 0% Her-2Neu (clone CB11) 0 MRI Breast 09/19/2019: RIGHT BREAST: The breast tissue is scattered fibroglandular densities with no background enhancement. There is a 2.5 cm abnormal enhancing mass in the superior outer aspect of the right breast located approximately 6 cm from the nipple. This does correlate to the area that was biopsied and shown to represent a malignancy. No other abnormal enhancing or abnormal morphologically appearing masses are seen in the right breast. LEFT BREAST: The breast tissue is heterogeneously dense with no background enhancement. There are no abnormal enhancing masses or areas of non-mass enhancement in the left breast. There are no enlarged or abnormal lymph nodes. There is no abnormality in the visualized regions of the chest or liver. IMPRESSION: There is a known malignancy in the right breast. Surgical consultation is recommended as well as radiation oncology and medical oncology consultation. Short-term six-month follow-up mammogram is recommended if the patient and the surgeon opt to do a lumpectomy. Underwent right modified radical mastectomy along with right axillary lymph node dissection on 10/11/2019. Pathology: FROZEN SECTION DIAGNOSIS A. Right axillary sentinel lymph nodes, biopsy: Two out of two lymph nodes negative for carcinoma. MICROSCOPIC DIAGNOSIS A. Right axillary sentinel lymph nodes, biopsy: Three out of three lymph nodes, negative for metastatic carcinoma. B. Right breast, mastectomy: Invasive poorly differentiated ductal carcinoma. See cancer check list below. COMMENT INVASIVE BREAST CANCER SUMMARY: Procedure: Mastectomy Specimen: Type: Total breast Size: 17 x 15 x 5 cm Laterality: Right breast Invasive Tumor: Size of tumor: 2.5 x 2 x 2 cm Focality: Single focus of invasive tumor Histologic type: Invasive ductal carcinoma. Histologic grade ([place] grade): Glandular/tubular differentiation score: 3 Nuclear pleomorphism score: 3 Mitotic count score: 3 Overall grade: 3 (score of 9/9) Lymph-vascular invasion: Not identified Ductal Carcinoma In Situ: Not identified Lobular Carcinoma In Situ: Not identified Tumor extension: Skin: Free of carcinoma Nipple: Free of carcinoma Skeletal muscle: Free of carcinoma Margins Involved by Invasive Carcinoma: None Distance from closest margin: 1.5 mm from superior margin Margins Involved by In Situ Carcinoma: Not applicable Lymph Nodes: Number of sentinel lymph nodes examined: 3 Total number of lymph nodes examined: 10 One non-sentinel lymph node with macrometastatic carcinoma (2.1 cm in greatest dimension). See specimen A for sentinel lymph nodes. Microcalcifications: Not identified Treatment Effect: Unknown Additional Pathologic Findings: Extensive tumor necrosis Ancillary Studies: Previously performed on same tumor ([id number]) ER: positive (4%, dim) ID: negative (0%) Znw5cqc: negative (0) Clinical History: Mass of breast Pathologic Stage: pT2 N1a Mx Previous therapy: 1) AC followed by T 2) Radiation at [facility]. Current therapy: Femara Began aromasin in 2019. Stopped December 2021 d/t hand pain/stiffness. Pt. s/p R JAY JAY 2021 complicated by abd hematoma-I&D 09/17/21. Surgery done at [facility]. Pt. has surgery scheduled May.272021 with plastics ([facility])-L mastopexy, R revision. No new concerns today. Appetite:Good. Energy level:Good. Denies fevers or recent illness. Resp:denies cough or sob Cardiac:denies chest pain/palpitations GI:denies abd pain, n/v, moving bowels regularly :denies dysuria/hematuria Extrem:denies pain, hand stiffness/pain resolved when stopped aromasin Endo:+hot flashes I'm just hot all the time. they do not wake pt. at night Neuro:neuropathy resolved to toes/feet Skin:denies rashes/lesions Heme:denies bleeding The ROS is otherwise negative. Past medical history, appointments, medications, allergies reviewed. No changes. EXAM: BP 142/97 Pulse 110 Temp 36.4 C (97.6 F) Ht 162 cm (5' 3.78) Wt 73.5 kg (162 lb) LMP 08/10/2012 SpO2 98% BMI 28.00 kg/m APPEARANCE Well appearing, alert, in no acute distress, well-hydrated, well nourished. HEART RRR with normal S1 and S2, no murmurs LUNG clear to auscultation BREAST FEMALE R recon JAY JAY, no mass/nodule, L no mass/nodule LYMPH NODES No cervical lymphadenopathy, No supraclavicular lymphadenopathy, and No axillary lymphadenopathy. ABDOMEN bowel sounds normoactive, soft, non-tender EXTREMITIES No edema NEURO Awake, alert and oriented x 3, Normal gait, and No involuntary motions. SKIN Skin color, texture, turgor normal, no suspicious rashes or lesions RADIOLOGY: Mammogram 03/16/23: IMPRESSION: BENIGN FINDING There is no mammographic evidence of malignancy. A 1 year screening mammogram is recommended. ASSESSMENT/PLAN: 1. Malignant neoplasm of upper-outer quadrant of right breast in female, estrogen receptor positive (HCC) - ICD9: 174.4, V86.0, ICD10: C50.411, Z17.0 Originally diagnosed with a T1c N0 MX, ER+; 50%, ID-<5% and HER-2 overexpressed (FISH average gene copy #13.2 HER-2 to CEP 17 ratio 5.8) infiltrating ductal carcinoma of the right breast. Received 6 cycles of paclitaxel even on an every two-week basis along with growth factor support (CALGB 85353) and trastuzumab. New pT2 pN1a ER 4%, ID negative, HER2 negative (0 on IHC) stage IIB infiltrating ductal carcinoma the right breast. Genetic testing negative. - No concerning findings on exam. - Tolerated aromasin poorly d/t hand stiffness. - Tolerating femara well overall. - Reviewed mammogram with pt. - Continue femara. - Mammogram due February 2024. - Follow up in 6 months. - Pt. aware to call office with any questions/concerns. The patient indicates understanding of these issues and agrees with the plan. All documentation from previous visit of 11/24/22-Dr. Lopez/myself was copied and pasted, documentation has been reviewed and edited as necessary for today's visit. Becca Magana APRN.SYL documented in this encounter [facility] 03-16-2023 Miscellaneous Notes March 17, 2023 PID: [id number] Doreen Betancur [address] [place] [address] Dear Ms. Betancur, We are pleased to inform you that the results of your recent breast imaging exam on 03/16/2023 are normal. Your mammogram demonstrates that you have dense breast tissue, which could hide abnormalities. Dense breast tissue, in and of itself, is a relatively common condition. Therefore, this information is not provided to cause undue concern; rather, it is to raise your awareness and promote discussion with your health care provider regarding the presence of dense breast tissue in addition to other risk factors. Early detection of cancer is very important. We also understand recommendations regarding breast cancer screening are controversial. Please discuss with your primary care provider which strategy is best for you and whether a mammogram is right for you. Your imaging studies and report will be kept on file at [facility] as part of your permanent medical record and are available for your continuing care. Thank you for allowing us to help in meeting your health care needs. Sincerely, Dr. Soares Interpreting Radiologist [facility] (Normal over 40) documented in this encounter [facility] 03-16-2023 History of Presen t illness Narrative Radiology Service Progress Note PATIENT NAME: Doreen Betancur DATE OF SERVICE: March 16, 2023 TIME: 10:08 AM PATIENT IDENTITY VERIFICATION COMPLETED USING TWO (2) IDENTIFIERS: Name and Date of confirmed by patient verbally. FALL SCREENING: Has the patient had 2 falls in the last year or 1 fall with injury or currently using an Ambulatory Assistive Device (Walker, Cane, Wheelchair, Crutches, etc.)? No PATIENT GENDER DATA: Female. status: : No status: NO. PATIENT RELEVANT IMPLANT DATA REVIEWED: Not Applicable RADIOLOGY DEPARTMENT: Mammography PERIPHERAL IV DATA: Not applicable SIGNED BY: Mag Leon March 16, 2023 10:08 AM documented in this encounter [facility] 02-23-2023 History of Presen t illness Narrative CC: Doreen Betancur is a 63 year old female who presents to the office for follow up HPI: Seen in office on 09/08/2022 At that time Patient has been struggling for over 1 day with feeling of anxiety that is uncontrolled and panic symptoms. Started within several hours of taking Dayquil medication for her cough/cold symptoms that she has had, with sick contacts being her . She denies suicidal or homicidal feelings. Is tearful and pacing in the room today. Her is present in the office and drove her here. She has had similar symptoms in the past with anesthesia. She is taking her 100 mg of Zoloft which she has taken for a while. No other new medications or changes. She was started on prn alprazolam to take until symptoms improved. At follow up on 09/26/2022 Anxiety symptoms feel like they are about 75% better but not fully. Also admits to struggling a little recently with just feeling flat, not happy but also not sad. Has been trying to get out of the house more such as going with her sister shopping or going to home and garden show. Has also opened up her front door to bring more light into the room to help with seasonal depression, when she wakes up in the morning. No SI or HI. Has good support from her and family. Her dose of zoloft was increased At last OFFICE VISIT on 10/24/2022 Feels that she is interested in trial of another medication. Still struggling with anxiety symptoms despite being on 200 mg of Zoloft, no SI or HI. Has good support from her family. She is interested in trying Cymbalta medication. Right knee pain, anterior, inferior, feels sore with sitting to standing position changes and prolonged walking, has tried ibuprofen without relief. Not been consistent though with any ice or heat or topical rubs. Denies any injury or trauma. At follow up on 11/24/22 Mood, overall doing well with her mood at this time. She states I am back to laughing again and feeling more like myself. I am singing while I am mowing on the tractor. No SI or HI. Has good support from her family Right knee pain, anterior, inferior, feels sore with sitting to standing position changes and prolonged walking, has tried ibuprofen without relief. Not been using topical voltaren and icing at bedtime with some benefit. No use of bracing, no falls,. Denies any injury or trauma. Still some fatigue and nail splitting occurring At follow up on 12/19/2022 Mood, has recently been struggling the last 8 days since she completely stopped the Zoloft medication that she was tapering down on and she was only taking the Cymbalta 30 mg a day. The cymbalta was just increased to 30 mg, up from 20 mg about 1-2 week ago. No SI or HI. Just very tearful and had a severe anxiety/panic attack. had to walk around with her for 3 hours when this occurred until her body was able to calm down. Does have very good support. Thinks medication adjusting is needed at this time Has had fatigue and nail changes. Just had labs drawn, no previous hx of hypothyroidism TSH Date Value Ref Range Status 12/17/2022 5.130 (H) 0.270 - 4.200 mIU/L Final Is willing to start on thyroid hormone at this time She was started on levothyroxine hormone at that time. At last office visit 01/20/23 Mood, she had her dose of Zoloft increased to 150 mg a day and still taking the cymbalta 60 mg a day in the morning. Having some fatigue but feels that this dose change is helping even though this change just occurred 1 or so weeks ago. No SI or HI. Has good support from . Her dose of zoloft was continued at 150 mg a day and cymbalta at 60 mg a day Currently She feels that her mood is doing better. Less frequent/rare anxiety episodes that she feels out of control with panic symptoms. She is experiencing decreased libido and would like this to improve. Hasn't been sexually active with in years. [employer] has given her creams vaginally to use. No SI or HI. Has good support from her family. Hypothyroidism, taking levoxyl 25 mcg a day, has fatigue TSH Date Value Ref Range Status 02/06/2023 2.860 0.270 - 4.200 mIU/L Final Free T4 Date Value Ref Range Status 02/06/2023 0.9 0.9 - 1.7 ng/dL Final BPPV, vertigo, comes and goes. Has had a few episodes in which she turns her head too quickly and she feels she is spinning temporarily PAST MEDICAL HISTORY Diagnosis Date Anxiety Malignant neoplasm of breast (female), unspecified site 05/2005 right breast Vitamin D deficiency PAST SURGICAL HISTORY Procedure Laterality Date BREAST RECONSTRUCTION Right DELIVERY ONLY times four COLONOSCOPY FLX DX W/COLLJ SPEC WHEN PFRMD 12/11/2014 Repeat 2024 DILATION & CURETTAGE DX&/THER NONOBSTETRIC LAPAROSCOPY W/RMVL ADNEXAL STRUCTURES 07/05/2013 Laprascopic BSO h/o breast ca LIG/TRNSXJ FLP TUBE ABDL/VAG APPR UNI/BI 1998(?) MAST MODF RAD W/AX LYMPH NOD W/WO PECT/VICKY MIN Right 10/11/2019 Dr. Arceo, [facility] PAST SURGICAL HISTORY OF 06/17/2005 lumpectomy and removal of lymph nodes PAST SURGICAL HISTORY OF 2018 Laser surgery vaginal Current Outpatient Medications Medication Sig cyclobenzaprine (FLEXERIL) 10 mg tablet Take 1 tablet by mouth every 8 hours as needed for muscle spasm or pain (FOR PAIN OR MUSCLE SPASM). cholecalciferol (VITAMIN D3) 5,000 unit tab Take 5,000 Units by mouth once daily. letrozole (FEMARA) 2.5 mg tablet Take 1 tablet by mouth once daily. metoprolol tartrate, short acting, (LOPRESSOR) 25 mg tablet Take 1 tablet by mouth twice daily as needed (tachycardia, palpitations). MAGNESIUM ORAL Take 1 tablet by mouth once daily. ezetimibe (ZETIA) 10 mg tablet Take 1 tablet by mouth once daily. At supper or bedtime Estradiol (VAGIFEM) 10 mcg vaginal tablet Use 10 mcg vaginally three times a week. lisinopril (ZESTRIL, PRINIVIL) 10 mg tablet Take 1 tablet by mouth once daily. As needed for BLOOD PRESSURE >140/90 vitamin b complex capsule Take 1 capsule by mouth once daily. Lactobacillus acidophilus (PROBIOTIC ORAL) Take 1 capsule by mouth once daily. sertraline (ZOLOFT) 100 mg tablet Take 1.5 tablets by mouth once daily. clonazePAM (KLONOPIN) 0.5 mg tablet Take 1 tablet by mouth twice daily as needed for anxiety for up to 30 days. DULoxetine (CYMBALTA) 60 mg capsule Take 1 capsule by mouth once daily. levothyroxine (LEVOXYL) 50 mcg tablet Take 1 tablet by mouth once daily. Take daily in the morning before eating, Take on empty stomach. For Thyroid pramipexole (MIRAPEX) 0.125 mg tablet Take 1 tablet by mouth daily at bedtime. No current facility-administered medications for this visit. ALLERGIES Allergen Reactions Penicillins Intolerance Unknown reaction as a child Dextromethorphan Mental Status Change anxiety Macrobid [Nitrofura* Hot, cold, achy Phenylephrine Intolerance anxiety Prednisone Other: See Comments Heart palpitations Adhesive Tape (Kassie* Intolerance Erythema after ribbon tape Social History Tobacco Use Smoking status: Never Smokeless tobacco: Never Vaping Use Vaping Use: Never used Substance Use Topics Alcohol use: Yes Comment: seldom Drug use: No ROS: See HPI. PE: BP 138/86 Pulse 80 Temp (Src) 98.1 (Left Tympanic) Resp 16 Wt 170 lb (77.1kg) LMP 08/10/2012 Gen: A&OX3, NAD, non-toxic appearing HEENT: PERRLA, EOMs intact b/l, nares without drainage, pharynx without erythema, exudate, lesions, or drainage. Uvula midline. Neck: No LAD, no thyromegaly, no meningismus. CV: RRR, no murmur Lungs: CTA b/l, no wheezing Skin: No rashes, lesions, or wounds on exposed skin. Slightly fatigued, smiling in office, well dressed No distress ASSESSMENT/PLAN: 1. Vertigo - ICD9: 780.4, ICD10: R42 (primary diagnosis) Referral to PHYSICAL THERAPY if symptoms continue for vestibular treatment as d/w her today. If worsening, will need CT brain - CONSULT TO PHYSICAL THERAPY 2. Situational anxiety - ICD9: 300.09, ICD10: F41.8 - decrease dose to zoloft 100 mg then 150 mg every other day x 2 weeks then decrease dose to zoloft 100 mg a day for 2 weeks to see if libido improves and mood still good. Continue prn use of clonazepam and continue same 60 mg dose of cymbalta at this time. - SERTRALINE 100 MG TABLET - CLONAZEPAM 0.5 MG TABLET 3. Situational insomnia - ICD9: 307.41, ICD10: F51.09 - decrease dose to zoloft 100 mg then 150 mg every other day x 2 weeks then decrease dose to zoloft 100 mg a day for 2 weeks to see if libido improves and mood still good. Continue prn use of clonazepam and continue same 60 mg dose of cymbalta at this time. - SERTRALINE 100 MG TABLET - CLONAZEPAM 0.5 MG TABLET 4. Anxiety and depression - ICD9: 300.00, 311, ICD10: F41.9, F32.A - decrease dose to zoloft 100 mg then 150 mg every other day x 2 weeks then decrease dose to zoloft 100 mg a day for 2 weeks to see if libido improves and mood still good. Continue prn use of clonazepam and continue same 60 mg dose of cymbalta at this time. - DULOXETINE 60 MG CAPSULE,DELAYED RELEASE 5. Hypothyroidism, acquired - ICD9: 244.9, ICD10: E03.9 - Instructed patient on importance of taking on an empty stomach either first thing in the morning or at bedtime. - Increase Synthroid dose to 0.050 mg Stable - Behavioral intervention, - Pharmacological intervention, and - Eat well program - LEVOTHYROXINE 50 MCG TABLET - TSH BLD - T4 FREE/FREE THYROX - T3 FREE BLD Ham Martinez DO PDMP website checked and validated. All prescriptions have been APPROPRIATELY filled. No suspicious activity was identified. 02/23/2023 by Ham Martinez DO Return if no improvement. Follow up with Ham Martinez DO. To ER if develops chest pain, shortness of breath. Discussed risks, benefits, alternatives, and potential side effects of medications. Patient/Guardian expressed understanding and agreed with the plan. See patient instructions. Ham Martinez DO [address] [place] [address] documented in this encounter [facility] 02-06-2023 History of Presen t illness Narrative Episode Visit Count: 7 Therapist That Will Accept/Oversee The Plan Of Care: Kirstin Cotton Start of Care Date: 11/14/22 Onset Date: 07/27/22 Patient Identified by Name and Date of : Yes REHABILITATION AND SPORTS THERAPY PHYSICAL THERAPY DISCONTINUANCE OF CARE PLAN OF CARE UPDATE: Assessment: Doreen Betancur is discontinued from Physical Therapy services due to goal achievement. and Patient/Clinician mutual decision to discontinue current plan of care.. Patient was seen for 7 visits from Start of Care Date: 11/14/22 to 02/06/2023 and treatment included: Therapeutic exercise, Manual therapy, Self-long-term management, and Patient/Family/Caregiver Education. Goals for Episode of Care: created on 11/14/22 through 01/14/23 Goals updated on 02/02/2023. Patient able to verbalize skin care and lymphedema risk reductions (Met) Patient will increase active ROM of R shld to 150-160 deg flex, 150-160 deg abd. to allow patient to achieve neutral postural alignment, for improved performance of ADLs. (Partially Met) Patient will decrease involved limb volume by 2-7% for decreased risk of infection, improved range of motion, allow appropriate fit in compressive garment, and decrease circumferential size (Partially Met) Patient will decrease involved limb circumference by 0.5-2 cm (Partially Met) Patient/family able to verbalize all pertinent aspects of CDT (Met) Patient/family independent with donning/doffing compression garment and proper wearing schedule and care of garment (Met) Patient will have increased function and be able to care for grandson, wear clothing comfortably with the involved UE (Met) Patient / family independence with home program (Met) Patient Goals: My arm to be back to normal. SUBJECTIVE: Patient Reason for Visit: Pt states she would like for this to be her last visit as she is doing well and is concerned about the cost. Pain: Pain Pain Level: 0 Post Treatment Pain Post Treatment Pain Level: 0 PROMIS Scales Higher is Better 02/02/2023 Phys Func - Score 54 (within normal limits) Phys Func - Percentile 66 % Self-Eff Symptom - Score 56 (Average) Self-Eff Symptom - Percentile 73 % T-scores: mean of general population = 50. 5 points is clinically meaningfully difference Percentiles provide an indication of how the patient's score ranks in relation to the general population. Higher percentile rankings indicate better function/quality of life. 50th percentile is the average of the general population and indicates half of respondents had a worse score. OBJECTIVE MEASURES WITH LEVEL OF FUNCTION: Lymphedema Comment: Pt was not wearing any compression R UE today. TREATMENT: Manual Therapy: 1: MLD R UE sequence utilizing R axillo-inguinal anastamosis, including abdominal sequence and short neck. Skilled Intervention: Manual skills to improve joint mobility, ROM, and decrease pain. Utilized anatomy knowledge of the therapist, and assessment of patient's response to intervention. Manual techniques to facilitate lymphatic dynamics and improve condition of tissue. Billing Manual TherapyTreatment Minutes: 30 Total Treatment Time Minutes (timed/untimed): 30 Kirstin Cotton PT documented in this encounter [facility] 02-02-2023 History of Presen t illness Narrative Episode Visit Count: 6 Therapist That Will Accept/Oversee The Plan Of Care: Kirstin Cotton Start of Care Date: 11/14/22 Onset Date: 07/27/22 Patient Identified by Name and Date of : Yes REHABILITATION AND SPORTS THERAPY PHYSICAL THERAPY PROGRESS REPORT PLAN OF CARE UPDATE: Assessment: Doreen Betancur demonstrates improvements in physical activities, cleaning, and dressing. She has met majority of her goals. Patient continues to present with impairments in edema management, range of motion, and symptom management that interfere with nothing . Current prognosis is Excellent due to: current objective clinical presentation, good overall health status, good support system/ coping skills . She will benefit from continued skilled therapy services to meet the updated goals for this plan of care as noted below. Goals for Episode of Care: created on 11/14/22 through 01/14/23 Goals updated on 02/02/2023. Patient able to verbalize skin care and lymphedema risk reductions (Met) Patient will increase active ROM of R shld to 150-160 deg flex, 150-160 deg abd. to allow patient to achieve neutral postural alignment, for improved performance of ADLs. (Partially Met) Patient will decrease involved limb volume by 2-7% for decreased risk of infection, improved range of motion, allow appropriate fit in compressive garment, and decrease circumferential size (Partially Met) Patient will decrease involved limb circumference by 0.5-2 cm (Partially Met) Patient/family able to verbalize all pertinent aspects of CDT (Met) Patient/family independent with donning/doffing compression garment and proper wearing schedule and care of garment (Met) Patient will have increased function and be able to care for grandson, wear clothing comfortably with the involved UE (Met) Patient / family independence with home program (Met) Patient Goals: My arm to be back to normal. Planned Interventions, Frequency, and Duration: 2x/week, 2 weeks Total Number of Visits Planned: 4 Patient to be seen for Therapeutic exercise (05668), Manual therapy (44526), Self-long-term management ([id number]), Patient/Family/Caregiver Education PLAN FOR NEXT VISIT: Continue with MLD and shld ROM x 2 more weeks to fully achieve goals. SUBJECTIVE: Patient Reason for Visit: Pt states she scraped a bunch of hairston off the rocks in her garden yesterday and last night her arm was sore. Denies any soreness today, though, but feels she overdid it. Overall, she feels her arm is doing well and her compresison garment is comfortable and effective. She notes that her R sleeves no longer feel tight and she is able to do everything functionally with her R arm. Functional Limitations: nothing Pain: Pain Pain Level: 0 Post Treatment Pain Post Treatment Pain Level: 0 PROMIS Scales Higher is Better 02/02/2023 Phys Func - Score 54 (within normal limits) Phys Func - Percentile 66 % Self-Eff Symptom - Score 56 (Average) Self-Eff Symptom - Percentile 73 % T-scores: mean of general population = 50. 5 points is clinically meaningfully difference Percentiles provide an indication of how the patient's score ranks in relation to the general population. Higher percentile rankings indicate better function/quality of life. 50th percentile is the average of the general population and indicates half of respondents had a worse score. OBJECTIVE MEASURES WITH LEVEL OF FUNCTION: Lymphedema Comment: Pt presents with her JUZO velcro compresison garment in place R UE Skin Comments:: Minimal skin indentations from edges of garment that reduce after removal and MLD. Upper Extremity Circumferential Measurements R Thumb (proximal phalanx) (cm): 7 cm R Index Finger (proximal phalanx) (cm): 7 cm R Middle Finger (proximal phalanx) (cm): 7 cm R Ring Finger (proximal phalanx) (cm): 6 cm R Small Finger (proximal phalanx) (cm): 6 cm R DPC (cm): 21 cm R Distal Wrist Crease (DWC) (cm): 17.5 cm R 4 cm above wrist (cm): 19 cm R 8 cm above wrist (cm): 21.5 cm R 12 cm above wrist (cm): 26 cm R 16 cm above wrist (cm): 28 cm R 20 cm above wrist (cm): 28 cm (elbow) R 24 cm above wrist (cm): 31 cm R 28 cm above wrist (cm): 32 cm R 32 cm above wrist (cm): 34 cm R 36 cm above wrist (cm): 36 cm R 40 cm above wrist (cm): 36.5 cm Affected Arm : Right Arm Calculate Volume : Yes R Upper Extremity Volume: 2648.09 UE PROM R Shoulder Flex: 145 Degrees R Shoulder ABduction: 154 Degrees TREATMENT: Manual Therapy: 1: MLD R UE sequence utilizing R axillo-inguinal anastamosis, including abdominal sequence and short neck. Skilled Intervention: Manual skills to improve joint mobility, ROM, and decrease pain. Utilized anatomy knowledge of the therapist, and assessment of patient's response to intervention. Manual techniques to facilitate lymphatic dynamics and improve condition of tissue. Billing Manual TherapyTreatment Minutes: 48 Total Treatment Time Minutes (timed/untimed): 48 Kirstin Cotton PT documented in this encounter [facility] 01-20-2023 History of Presen t illness Narrative CC: Doreen Betancur is a 63 year old female who presents to the office for follow up HPI: Seen in office on 09/08/2022 At that time Patient has been struggling for over 1 day with feeling of anxiety that is uncontrolled and panic symptoms. Started within several hours of taking Dayquil medication for her cough/cold symptoms that she has had, with sick contacts being her . She denies suicidal or homicidal feelings. Is tearful and pacing in the room today. Her is present in the office and drove her here. She has had similar symptoms in the past with anesthesia. She is taking her 100 mg of Zoloft which she has taken for a while. No other new medications or changes. She was started on prn alprazolam to take until symptoms improved. At follow up on 09/26/2022 Anxiety symptoms feel like they are about 75% better but not fully. Also admits to struggling a little recently with just feeling flat, not happy but also not sad. Has been trying to get out of the house more such as going with her sister shopping or going to home and garden show. Has also opened up her front door to bring more light into the room to help with seasonal depression, when she wakes up in the morning. No SI or HI. Has good support from her and family. Her dose of zoloft was increased At last OFFICE VISIT on 10/24/2022 Feels that she is interested in trial of another medication. Still struggling with anxiety symptoms despite being on 200 mg of Zoloft, no SI or HI. Has good support from her family. She is interested in trying Cymbalta medication. Right knee pain, anterior, inferior, feels sore with sitting to standing position changes and prolonged walking, has tried ibuprofen without relief. Not been consistent though with any ice or heat or topical rubs. Denies any injury or trauma. At follow up on 11/24/22 Mood, overall doing well with her mood at this time. She states I am back to laughing again and feeling more like myself. I am singing while I am mowing on the tractor. No SI or HI. Has good support from her family Right knee pain, anterior, inferior, feels sore with sitting to standing position changes and prolonged walking, has tried ibuprofen without relief. Not been using topical voltaren and icing at bedtime with some benefit. No use of bracing, no falls,. Denies any injury or trauma. Still some fatigue and nail splitting occurring At follow up on 12/19/2022 Mood, has recently been struggling the last 8 days since she completely stopped the Zoloft medication that she was tapering down on and she was only taking the Cymbalta 30 mg a day. The cymbalta was just increased to 30 mg, up from 20 mg about 1-2 week ago. No SI or HI. Just very tearful and had a severe anxiety/panic attack. had to walk around with her for 3 hours when this occurred until her body was able to calm down. Does have very good support. Thinks medication adjusting is needed at this time Has had fatigue and nail changes. Just had labs drawn, no previous hx of hypothyroidism TSH Date Value Ref Range Status 12/17/2022 5.130 (H) 0.270 - 4.200 mIU/L Final Is willing to start on thyroid hormone at this time She was started on levothyroxine hormone at that time. Currently Mood, she had her dose of Zoloft increased to 150 mg a day and still taking the cymbalta 60 mg a day in the morning. Having some fatigue but feels that this dose change is helping even though this change just occurred 1 or so weeks ago. No SI or HI. Has good support from . PAST MEDICAL HISTORY Diagnosis Date Anxiety Malignant neoplasm of breast (female), unspecified site 05/2005 right breast Vitamin D deficiency PAST SURGICAL HISTORY Procedure Laterality Date BREAST RECONSTRUCTION Right DELIVERY ONLY times four COLONOSCOPY FLX DX W/COLLJ SPEC WHEN PFRMD 12/11/2014 Repeat 2024 DILATION & CURETTAGE DX&/THER NONOBSTETRIC LAPAROSCOPY W/RMVL ADNEXAL STRUCTURES 07/05/2013 Laprascopic BSO h/o breast ca LIG/TRNSXJ FLP TUBE ABDL/VAG APPR UNI/BI 1998(?) MAST MODF RAD W/AX LYMPH NOD W/WO PECT/VICKY MIN Right 10/11/2019 Dr. Arceo, [facility] PAST SURGICAL HISTORY OF 06/17/2005 lumpectomy and removal of lymph nodes PAST SURGICAL HISTORY OF 2018 Laser surgery vaginal Current Outpatient Medications Medication Sig sertraline (ZOLOFT) 100 mg tablet Take 1.5 tablets by mouth once daily. DULoxetine (CYMBALTA) 60 mg capsule Take 1 capsule by mouth once daily. levothyroxine (LEVOXYL) 25 mcg tablet Take 1 tablet by mouth once daily. Take daily in the morning before eating, Take on empty stomach. For Thyroid cholecalciferol (VITAMIN D3) 5,000 unit tab Take 5,000 Units by mouth once daily. letrozole (FEMARA) 2.5 mg tablet Take 1 tablet by mouth once daily. metoprolol tartrate, short acting, (LOPRESSOR) 25 mg tablet Take 1 tablet by mouth twice daily as needed (tachycardia, palpitations). clonazePAM (KLONOPIN) 0.5 mg tablet Take 1 tablet by mouth twice daily as needed for anxiety for up to 30 days. MAGNESIUM ORAL Take 1 tablet by mouth once daily. ezetimibe (ZETIA) 10 mg tablet Take 1 tablet by mouth once daily. At supper or bedtime Estradiol (VAGIFEM) 10 mcg vaginal tablet Use 10 mcg vaginally three times a week. lisinopril (ZESTRIL, PRINIVIL) 10 mg tablet Take 1 tablet by mouth once daily. As needed for BLOOD PRESSURE >140/90 vitamin b complex capsule Take 1 capsule by mouth once daily. Lactobacillus acidophilus (PROBIOTIC ORAL) Take 1 capsule by mouth once daily. cyclobenzaprine (FLEXERIL) 10 mg tablet Take 1 tablet by mouth every 8 hours as needed for muscle spasm or pain (FOR PAIN OR MUSCLE SPASM). pramipexole (MIRAPEX) 0.125 mg tablet Take 1 tablet by mouth daily at bedtime. No current facility-administered medications for this visit. ALLERGIES Allergen Reactions Penicillins Intolerance Unknown reaction as a child Dextromethorphan Mental Status Change anxiety Macrobid [Nitrofura* Hot, cold, achy Phenylephrine Intolerance anxiety Prednisone Other: See Comments Heart palpitations Adhesive Tape (Kassie* Intolerance Erythema after ribbon tape Social History Tobacco Use Smoking status: Never Smokeless tobacco: Never Vaping Use Vaping Use: Never used Substance Use Topics Alcohol use: Yes Comment: seldom Drug use: No ROS: See HPI PE: BP 130/84 Pulse 80 Temp (Src) 97 (Left Tympanic) Resp 16 Wt 170 lb (77.1kg) LMP 08/10/2012 Gen: A&OX3, NAD, non-toxic appearing HEENT: PERRLA, EOMs intact b/l, nares without drainage, pharynx without erythema, exudate, lesions, or drainage. Uvula midline. Neck: No LAD, no thyromegaly, no meningismus. CV: RRR, no murmur, normal s1s2 Lungs: CTA b/l, no wheezing No edema, normal pulses Skin: No rashes, lesions, or wounds on exposed skin. ASSESSMENT/PLAN: 1. Situational anxiety - ICD9: 300.09, ICD10: F41.8 (primary diagnosis) - continue zoloft 150 mg a day and cymbalta 60 mg, no SI or HI. Consider tapering down dose of zoloft 100 mg a day and increasing the dose cymbalta to 80 mg a day at follow up in 1 month. 2. Muscle spasm of back - ICD9: 724.8, ICD10: M62.830 - continue prn flexeril medication. 3. Situational insomnia - ICD9: 307.41, ICD10: F51.09 - continue zoloft 150 mg a day and cymbalta 60 mg, no SI or HI. Consider tapering down dose of zoloft 100 mg a day and increasing the dose cymbalta to 80 mg a day at follow up in 1 month. 4. Anxiety and depression - ICD9: 300.00, 311, ICD10: F41.9, F32.A - continue zoloft 150 mg a day and cymbalta 60 mg, no SI or HI. Consider tapering down dose of zoloft 100 mg a day and increasing the dose cymbalta to 80 mg a day at follow up in 1 month. Ham Martinez DO Return if no improvement. Follow up with Ham Martinez DO. To ER if develops chest pain, shortness of breath Discussed risks, benefits, alternatives, and potential side effects of medications. Patient/Guardian expressed understanding and agreed with the plan. See patient instructions. Ham Martinez DO [address] [place] [address] documented in this encounter [facility] 01-12-2023 Miscellaneous Notes Pt. informed via My Chart. The following approved medication requests have been transmitted electronically. Requested Prescriptions Signed Prescriptions Disp Refills sertraline (ZOLOFT) 100 mg tablet 45 tablet 2 Sig: Take 1.5 tablets by mouth once daily. Authorizing Provider: AINSLEY TRINIDAD PA-C Copied message from my chart [facility] sent to [facility] My Chart Rx Pool Dr. Martinez, I will be out of Zoloft on Thursday. With the increase of 50mg. I ran out before my prescription could be refilled. What would you like me to do? Thanks Doreen Caridad--12/19/22 Nov--01/20/23 Last refill--12/19/22 90 with 1 refill Last labs--12/17/22 This was of increase she is speaking of. Dr. Juan Hannah would like you to continue to take the 100 MG but increase to 1.5 tablets at bedtime to equal the 150 MG. You are to continue taking the Cymbalta as well. She didn't call anything into the pharmacy she just made an update to your medication list with the new directions. She just sent a new prescription 12/19 for Sertraline 100 MG- 90 day supply at 1 tablet daily so you can finish out what you have on hand increasing to 1.5 tablets & then we can send the new prescription to the pharmacy when that is finished. Any questions please notify the office. Latia Wesley MA documented in this encounter [facility] 01-06-2023 Miscellaneous Notes We are going to increase the zoloft to 150 mg in the evening and then continue the cymbalta as well. Ham Martinez DO The following approved medication requests have been transmitted electronically. Requested Prescriptions Signed Prescriptions Disp Refills sertraline (ZOLOFT) 100 mg tablet Sig: Take 1.5 tablets by mouth once daily. Authorizing Provider: HAM MARTINEZ DO documented in this encounter [facility] 11-25-2022 Miscellaneous Notes Please inform pt. that she should follow up with Ai Contreras/[employer]. to further discuss estrogen cream. It would be best for Ai to follow up on this as well. Discussed above with Dr. Lopez who agrees. Thank you. Becca Magana APRN.[employer]ICING MACHINE TENDER Please inform pt. that she should follow up with Ai Contreras/[employer] INST[employer]. to further discuss estrogen cream. It would be best for Ai to follow up on this as well. Discussed above with Dr. Lopez who agrees. Thank you. Becca Magana APRN.SLICING MACHINE TENDER documented in this encounter [facility] 11-24-2022 History of Presen t illness Narrative CC: Doreen Betancur is a 62 year old female who presents to the office for follow u HPI: Seen in office on 09/08/2022 At that time Patient has been struggling for over 1 day with feeling of anxiety that is uncontrolled and panic symptoms. Started within several hours of taking Dayquil medication for her cough/cold symptoms that she has had, with sick contacts being her . She denies suicidal or homicidal feelings. Is tearful and pacing in the room today. Her is present in the office and drove her here. She has had similar symptoms in the past with anesthesia. She is taking her 100 mg of Zoloft which she has taken for a while. No other new medications or changes. She was started on prn alprazolam to take until symptoms improved. At follow up on 09/26/2022 Anxiety symptoms feel like they are about 75% better but not fully. Also admits to struggling a little recently with just feeling flat, not happy but also not sad. Has been trying to get out of the house more such as going with her sister shopping or going to home and garden show. Has also opened up her front door to bring more light into the room to help with seasonal depression, when she wakes up in the morning. No SI or HI. Has good support from her and family. Her dose of zoloft was increased At last OFFICE VISIT on 10/24/2022 Feels that she is interested in trial of another medication. Still struggling with anxiety symptoms despite being on 200 mg of Zoloft, no SI or HI. Has good support from her family. She is interested in trying Cymbalta medication. Right knee pain, anterior, inferior, feels sore with sitting to standing position changes and prolonged walking, has tried ibuprofen without relief. Not been consistent though with any ice or heat or topical rubs. Denies any injury or trauma. Currently Mood, overall doing well with her mood at this time. She states I am back to laughing again and feeling more like myself. I am singing while I am mowing on the tractor. No SI or HI. Has good support from her family Right knee pain, anterior, inferior, feels sore with sitting to standing position changes and prolonged walking, has tried ibuprofen without relief. Not been using topical voltaren and icing at bedtime with some benefit. No use of bracing, no falls,. Denies any injury or trauma. Still some fatigue and nail splitting occurring PAST MEDICAL HISTORY Diagnosis Date Anxiety Malignant neoplasm of breast (female), unspecified site 05/2005 right breast Vitamin D deficiency PAST SURGICAL HISTORY Procedure Laterality Date BREAST RECONSTRUCTION Right DELIVERY ONLY times four COLONOSCOPY FLX DX W/COLLJ SPEC WHEN PFRMD 12/11/2014 Repeat 2024 DILATION & CURETTAGE DX&/THER NONOBSTETRIC LAPAROSCOPY W/RMVL ADNEXAL STRUCTURES 07/05/2013 Laprascopic BSO h/o breast ca LIG/TRNSXJ FLP TUBE ABDL/VAG APPR UNI/BI 1998(?) MAST MODF RAD W/AX LYMPH NOD W/WO PECT/VICKY MIN Right 10/11/2019 Dr. Arceo, [facility] PAST SURGICAL HISTORY OF 06/17/2005 lumpectomy and removal of lymph nodes PAST SURGICAL HISTORY OF 2018 Laser surgery vaginal Current Outpatient Medications Medication Sig cholecalciferol (VITAMIN D-3) 5,000 unit tab Take 5,000 Units by mouth once daily. letrozole (FEMARA) 2.5 mg tablet Take 1 tablet by mouth once daily. DULoxetine (CYMBALTA) 20 mg capsule Take 1 capsule by mouth once daily. metoprolol tartrate, short acting, (LOPRESSOR) 25 mg tablet Take 1 tablet by mouth twice daily as needed (tachycardia, palpitations). clonazePAM (KLONOPIN) 0.5 mg tablet Take 1 tablet by mouth twice daily as needed for anxiety for up to 30 days. MAGNESIUM ORAL Take 1 tablet by mouth once daily. ezetimibe (ZETIA) 10 mg tablet Take 1 tablet by mouth once daily. At supper or bedtime Estradiol (VAGIFEM) 10 mcg vaginal tablet Use 10 mcg vaginally three times a week. lisinopril (ZESTRIL, PRINIVIL) 10 mg tablet Take 1 tablet by mouth once daily. As needed for BLOOD PRESSURE >140/90 vitamin b complex capsule Take 1 capsule by mouth once daily. Lactobacillus acidophilus (PROBIOTIC ORAL) Take 1 capsule by mouth once daily. pramipexole (MIRAPEX) 0.125 mg tablet Take 1 tablet by mouth daily at bedtime. No current facility-administered medications for this visit. ALLERGIES Allergen Reactions Penicillins Intolerance Unknown reaction as a child Dextromethorphan Mental Status Change anxiety Macrobid [Nitrofura* Hot, cold, achy Phenylephrine Intolerance anxiety Prednisone Other: See Comments Heart palpitations Adhesive Tape (Kassie* Intolerance Erythema after ribbon tape Social History Tobacco Use Smoking status: Never Smokeless tobacco: Never Vaping Use Vaping Use: Never used Substance Use Topics Alcohol use: Yes Comment: seldom Drug use: No ROS: See HPI PE: BP 120/82 Pulse 76 Temp (Src) 97 (Right Tympanic) Resp 16 Wt 172 lb (78.0kg) LMP 08/10/2012 Gen: A&OX3, NAD, non-toxic appearing HEENT: PERRLA, EOMs intact b/l, nares without drainage, pharynx without erythema, exudate, lesions, or drainage. Uvula midline. Neck: No LAD, no thyromegaly, no meningismus. CV: RRR, no murmur Lungs: CTA b/l, no wheezing Skin: No rashes, lesions, or wounds on exposed skin. Right knee anterior tibial insertion discomfort and b/l joint line discomfort., no swelling of joint No edema legs, normal pulses Pleasant, well dressed ASSESSMENT/PLAN: 1. Situational anxiety - ICD9: 300.09, ICD10: F41.8 (primary diagnosis) - much improved, continue same medications and healthy diet and exercise 2. Depressive disorder - ICD9: 311, ICD10: F32.A - much improved, continue same medications and healthy diet and exercise - TSH BLD - T4 FREE/FREE THYROX - T3 FREE BLD 3. Dyslipidemia - ICD9: 272.4, ICD10: E78.5 - to be determined upon return of lab results - Encouraged following a low fat, low cholesterol diet. - Discussed the benefits of regular aerobic exercise and weight loss. - Check fasting lipid panel - COMP METABOLIC PANEL - CBC + DIFF - HGB A1C - LIPID PANEL BASIC 4. Osteopenia of multiple sites - ICD9: 733.90, ICD10: M85.89 - Reviewed the need for Calcium and Vitamin D supplements and weight bearing exercise as tolerated - VITAMIN D 25 HYDROXY - TSH BLD - T4 FREE/FREE THYROX - T3 FREE BLD 5. Vitamin D deficiency - ICD9: 268.9, ICD10: E55.9 Recheck labs, continue supplement - VITAMIN D 25 HYDROXY 6. Fatigue, unspecified type - ICD9: 780.79, ICD10: R53.83 Recheck labs - VITAMIN D 25 HYDROXY - VITAMIN B12 BLOOD - TSH BLD - T4 FREE/FREE THYROX - T3 FREE BLD 7. Lamellar nail splitting - ICD9: 703.8, ICD10: L60.3 Recheck labs - VITAMIN D 25 HYDROXY - VITAMIN B12 BLOOD - COMP METABOLIC PANEL - CBC + DIFF - TSH BLD - T4 FREE/FREE THYROX - T3 FREE BLD Ham Martinez DO Return if no improvement. Follow up with Ham Martinez DO. To ER if develops chest pain, shortness of breath Discussed risks, benefits, alternatives, and potential side effects of medications. Patient/Guardian expressed understanding and agreed with the plan. See patient instructions. Ham Martinez DO [address] [place] [address] documented in this encounter [facility] 11-24-2022 History of Presen t illness Narrative Chief Complaint Patient presents with: Established Patient HPI: Doreen Betancur is a 62 year old female who presents here today for follow up breast cancer. Per Dr. 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 Status post 6 doses of paclitaxel given on an every-2- week basis with growth factor support along with trastuzumab (CALGB 03443). Radiation therapy was completed in 11/2005. She had been on tamoxifen since the second week of 12/2005. Finished trastuzumab in June 2006. Completed 5 years' worth of tamoxifen fall 2010. Received injection Zoladex with plan for possible AI therapy, but had significant QUINTANILLA. Decision at that point to hold therapy. Took nearly the whole month for QUINTANILLA to gradually resolve. Underwent lap oophorectomy 06/2013. She was running a weed eater in early March 2019 when a rock was thrown up hitting her in the lateral right breast right along the scar from previous surgery. She developed a tender lump in that area. She underwent diagnostic mammogram and ultrasound which suggested hematoma. She had no skin discoloration. Follow-up breast ultrasound suggested stable findings consistent with hematoma. Repeat ultrasound of the right breast on 08/24/2019 revealed a 1.8 x 2.4 x 1.2 cm lobulated mass in the right breast that was suspicious for malignancy. Biopsy was recommended. Biopsy done 09/02/2019. Pathology: MICROSCOPIC DIAGNOSIS Right breast, ultrasound-guided needle core biopsy: Invasive ductal carcinoma. Nuclear grade - 3/3 Maximal length - 13 mm Other findings - tumor necrosis Reference is made to the patient s previous right breast lumpectomy from 2004 ([id number]) in which invasive, grade 3/3, poorly differentiated ductal carcinoma was identified. ER (clone [id number]) 4% dim ID (clone 16/1E2) 0% Her-2Neu (clone [id number]) 0 MRI Breast 09/19/2019: RIGHT BREAST: The breast tissue is scattered fibroglandular densities with no background enhancement. There is a 2.5 cm abnormal enhancing mass in the superior outer aspect of the right breast located approximately 6 cm from the nipple. This does correlate to the area that was biopsied and shown to represent a malignancy. No other abnormal enhancing or abnormal morphologically appearing masses are seen in the right breast. LEFT BREAST: The breast tissue is heterogeneously dense with no background enhancement. There are no abnormal enhancing masses or areas of non-mass enhancement in the left breast. There are no enlarged or abnormal lymph nodes. There is no abnormality in the visualized regions of the chest or liver. IMPRESSION: There is a known malignancy in the right breast. Surgical consultation is recommended as well as radiation oncology and medical oncology consultation. Short-term six-month follow-up mammogram is recommended if the patient and the surgeon opt to do a lumpectomy. Underwent right modified radical mastectomy along with right axillary lymph node dissection on 10/11/2019. Pathology: FROZEN SECTION DIAGNOSIS A. Right axillary sentinel lymph nodes, biopsy: Two out of two lymph nodes negative for carcinoma. MICROSCOPIC DIAGNOSIS A. Right axillary sentinel lymph nodes, biopsy: Three out of three lymph nodes, negative for metastatic carcinoma. B. Right breast, mastectomy: Invasive poorly differentiated ductal carcinoma. See cancer check list below. COMMENT INVASIVE BREAST CANCER SUMMARY: Procedure: Mastectomy Specimen: Type: Total breast Size: 17 x 15 x 5 cm Laterality: Right breast Invasive Tumor: Size of tumor: 2.5 x 2 x 2 cm Focality: Single focus of invasive tumor Histologic type: Invasive ductal carcinoma. Histologic grade ([place] grade): Glandular/tubular differentiation score: 3 Nuclear pleomorphism score: 3 Mitotic count score: 3 Overall grade: 3 (score of 9/9) Lymph-vascular invasion: Not identified Ductal Carcinoma In Situ: Not identified Lobular Carcinoma In Situ: Not identified Tumor extension: Skin: Free of carcinoma Nipple: Free of carcinoma Skeletal muscle: Free of carcinoma Margins Involved by Invasive Carcinoma: None Distance from closest margin: 1.5 mm from superior margin Margins Involved by In Situ Carcinoma: Not applicable Lymph Nodes: Number of sentinel lymph nodes examined: 3 Total number of lymph nodes examined: 10 One non-sentinel lymph node with macrometastatic carcinoma (2.1 cm in greatest dimension). See specimen A for sentinel lymph nodes. Microcalcifications: Not identified Treatment Effect: Unknown Additional Pathologic Findings: Extensive tumor necrosis Ancillary Studies: Previously performed on same tumor ([id number]) ER: positive (4%, dim) ID: negative (0%) Ywi9cde: negative (0) Clinical History: Mass of breast Pathologic Stage: pT2 N1a Mx Previous therapy: 1) AC followed by T 2) Radiation at [facility]. Current therapy: Femara Began aromasin in 2019. Stopped December 2021 d/t hand pain/stiffness. Pt. s/p R JAY JAY 2021 complicated by abd hematoma-I&D 09/17/21. Surgery done at [facility]. Pt. has surgery scheduled [id number] with plastics ([facility])-L mastopexy, R revision. No new concerns today. Appetite:Good. Energy level:Good. Denies fevers or recent illness. Resp:denies cough or sob, +seasonal allergies Cardiac:denies chest pain/palpitations GI:denies abd pain, n/v, moving bowels regularly :denies dysuria/hematuria Extrem:denies pain, hand stiffness/pain resolved when stopped aromasin Endo:+hot flashes Getting less intense. I'm just hot all of the time. Neuro:neuropathy resolved to toes/feet Skin:denies rashes/lesions Heme:denies bleeding The ROS is otherwise negative. Past medical history, appointments, medications, allergies reviewed. No changes. EXAM: BP 140/95 Pulse 79 Temp 36.4 C (97.5 F) (Temporal) Ht 163.8 cm (5' 4.5) Wt 78.2 kg (172 lb 8 oz) LMP 08/10/2012 BMI 29.15 kg/m APPEARANCE Well appearing, alert, in no acute distress, well-hydrated, well nourished. HEART RRR with normal S1 and S2, no murmurs LUNG clear to auscultation BREAST FEMALE R recon JAY JAY, no mass/nodule, L no mass/nodule LYMPH NODES No cervical lymphadenopathy, No supraclavicular lymphadenopathy, and No axillary lymphadenopathy. ABDOMEN bowel sounds normoactive, soft, non-tender EXTREMITIES No edema NEURO Awake, alert and oriented x 3, Normal gait, and No involuntary motions. SKIN Skin color, texture, turgor normal, no suspicious rashes or lesions ASSESSMENT/PLAN: 1. Malignant neoplasm of upper-outer quadrant of right breast in female, estrogen receptor positive (HCC) - ICD9: 174.4, V86.0, ICD10: C50.411, Z17.0 Originally diagnosed with a T1c N0 MX, ER+; 50%, ID-<5% and HER-2 overexpressed (FISH average gene copy #13.2 HER-2 to CEP 17 ratio 5.8) infiltrating ductal carcinoma of the right breast. Received 6 cycles of paclitaxel even on an every two-week basis along with growth factor support (CALGB 72644) and trastuzumab. New pT2 pN1a ER 4%, ID negative, HER2 negative (0 on IHC) stage IIB infiltrating ductal carcinoma the right breast. Genetic testing negative. - No concerning findings on exam. - Tolerated aromasin poorly d/t hand stiffness. - Tolerating femara well overall. - Continue femara. Rx done. - L mammogram due February 2023. - Follow up in 6 months. - Pt. aware to call office with any questions/concerns. The patient indicates understanding of these issues and agrees with the plan. All documentation from previous visit of 05/23/22-Dr. Lopez/myself was copied and pasted, documentation has been reviewed and edited as necessary for today's visit. Becca Magana APRN.CNP documented in this encounter [facility] 11-14-2022 History of Presen t illness Narrative Episode Visit Count: 1 Therapist That Will Accept/Oversee The Plan Of Care: Kirstin Cotton Start of Care Date: 11/14/22 Onset Date: 07/27/22 Patient Identified by Name and Date of : Yes REHABILITATION AND SPORTS THERAPY PHYSICAL THERAPY EVALUATION PLAN OF CARE: Assessment: Doreen Betancur presents with diagnosis of lymphedema of arm, hx of lymph node dissection of R axilla, and arm swelling that interferes with nothing, dressing (Sleeves are tighter R shoulder, arm and shoulder blade.) . She presents with impairments in edema management, overall function, and range of motion. Patient did not complete the PROMIS (Patient Reported Outcome Measures Information System). Prognosis for therapy is Excellent due to: current objective clinical presentation, good overall health status, good support system/ coping skills . She will benefit from skilled therapy services to meet the goals established for this plan of care as noted below. Goals for Episode of Care: created on 11/14/22 through 01/14/23 Patient able to verbalize skin care and lymphedema risk reductions Patient will increase active ROM of R shld to 150-160 deg flex, 150-160 deg abd. to allow patient to achieve neutral postural alignment, for improved performance of ADLs. Patient will decrease involved limb volume by 2-7% for decreased risk of infection, improved range of motion, allow appropriate fit in compressive garment, and decrease circumferential size Patient will decrease involved limb circumference by 0.5-2 cm Patient/family able to verbalize all pertinent aspects of CDT Patient/family independent with donning/doffing compression garment and proper wearing schedule and care of garment Patient will have increased function and be able to care for grandson, wear clothing comfortably with the involved UE Patient / family independence with home program Patient Goals: My arm to be back to normal. Planned Interventions, Frequency, and Duration: Current Frequency: 2x/week Duration: 8 weeks Total Number of Visits Planned: 16 Planned Treatment Interventions: Therapeutic exercise (92582), Neuromuscular re-education (57671), Manual therapy (51004), Self-long-term management (14696), Patient/Family/Caregiver Education PLAN FOR NEXT VISIT: Initiate MLD for R UE and may instruct in R shld AROM/stretching exercises for HEP. Instruct in wear schedule, don/doffing and fit of velcro compression wrap. Patient demonstrates good understanding of plan of care and treatment. The above goals and plan of care were discussed and agreed upon by patient/family. SUBJECTIVE: Doreen Betancur is a 62 year old female seen today for Pt presents with R UE swelling and tightness. Pt denies any pain or problems with function. Patient Goals: My arm to be back to normal. Functional Limitations: nothing, dressing (Sleeves are tighter R shoulder, arm and shoulder blade.) Prior Level of Function: Independent without limitations Relevant History Right or Left Handed: Right Home Environment Patient Lives With: Spouse Intake Information: Prescription present Previous Treatment: Physical Therapy (Instruction in decongestive exercises, shld & scapular strengthening exercises, and lymphedema education.) Pain: Pain Pain Level: 0 Pain Location: (R UE) Description: (fullness, pressure, pulling) Frequency: Intermittent Post Treatment Pain Post Treatment Pain Level: 0 PROMIS Scales T-scores: mean of general population = 50. 5 points is clinically meaningfully difference Percentiles provide an indication of how the patient's score ranks in relation to the general population. Higher percentile rankings indicate better function/quality of life. 50th percentile is the average of the general population and indicates half of respondents had a worse score. OBJECTIVE MEASURES WITH LEVEL OF FUNCTION: Lymphedema Presents with: Swelling, Decreased knowledge of lymphedema management, Functional Limitations Comment: + Stemmer's sign R UE Relative Contra-indications to Compression: : None Relative Contra-indications to Manual Lymph Drainage: : None Relative Contra-indications to Neck Manual Lymph Drainage: : None Relative Contra-indications for Abdominal Sequences: None Skin: Color, Pitting Edema Color Comments:: normal Pitting Edema Comments:: no pitting appreciated today Breast Cancer Related Stage of Lymphedema: Grade 2: Mild- Limb volume 5%-8% greater than baseline Upper Extremity Circumferential Measurements R Thumb (proximal phalanx) (cm): 7 cm R Index Finger (proximal phalanx) (cm): 7.5 cm R Middle Finger (proximal phalanx) (cm): 7 cm R Ring Finger (proximal phalanx) (cm): 6.6 cm R Small Finger (proximal phalanx) (cm): 6 cm R DPC (cm): 20.5 cm R Distal Wrist Crease (DWC) (cm): 17 cm R 4 cm above wrist (cm): 19.5 cm R 8 cm above wrist (cm): 22.5 cm R 12 cm above wrist (cm): 26.5 cm R 16 cm above wrist (cm): 28 cm R 20 cm above wrist (cm): 29.5 cm (elbow) R 24 cm above wrist (cm): 32 cm R 28 cm above wrist (cm): 33 cm R 32 cm above wrist (cm): 34.5 cm R 36 cm above wrist (cm): 36 cm R 40 cm above wrist (cm): 36 cm L Thumb (proximal phalanx) (cm): 7 cm L Index Finger (proximal phalanx) (cm): 7 cm L Middle Finger (proximal phalanx) (cm): 6.5 cm L Ring Finger (proximal phalanx) (cm): 6.5 cm L Small Finger (proximal phalanx) (cm): 5.5 cm L DPC (cm): 20.5 cm L Distal Wrist Crease (DWC) (cm): 17 cm L 4 cm above wrist (cm): 19.5 cm L 8 cm above wrist (cm): 22.5 cm L 12 cm above wrist (cm): 26 cm L 16 cm above wrist (cm): 28 cm L 20 cm above wrist (cm): 28 cm (elbow) L 24 cm above wrist (cm): 30.5 cm L 28 cm above wrist (cm): 31 cm L 32 cm above wrist (cm): 32 cm L 36 cm above wrist (cm): 34.5 cm L 40 cm above wrist (cm): 35 cm Affected Arm : Right Arm Calculate Volume : Yes R Upper Extremity Volume: 2747.4 L Upper Extremity Volume: 2543.13 Difference in Volume: 204.27 Difference in % : 7.44 UE PROM R UE PROM: AROM L UE PROM: AROM R Shoulder Flex: 135 Degrees (pulling subaxillary) R Shoulder ABduction: 135 Degrees (pulling subaxillary) L Shoulder Flex: 155 Degrees L Shoulder ABduction: 145 Degrees Education: Education Learning Preferences: Demonstration, Explanation Barriers: None Learning/educational needs: Home exercise program, Plan of Care, Lymphedema Program Education Provided: Yes, see treatment interventions for education provided Education Provided To: Patient Education Mode/Type: Demonstration, Explanation/Discussion, Literature/Printed Materials, Performance Response to Education/Teach Back: States/Identifies, Return Demonstration TREATMENT: PT Treatment Interventions: Therapeutic Exercise, Self-Longterm Management Evaluation Therapeutic Exercise: 1: *Instruction in UE decongestive exercises Skilled Intervention: Patient was educated in proper exercise technique and purpose for exercises. Skilled judgment was provided in selection of appropriate interventions. Provided written instruction for home exercise program to facilitate proper performance and compliance. Correct performance of therapeutic exercises was facilitated with verbal and visual cuing. Patient education as noted. Self-Longterm Management: 1: Lymphedema and CDT education with recommendations for MLD and compression wrapping or velcro compression. Pt stating she prefers the velcro wrap (samples of Solaris Ready Wrap over the CircAid JuxtaFit). Resources for obtaining garment were given to pt and all questions were answered to pt satisfaction. Skilled Intervention: Skilled judgment in the selection of proper modification for activity of daily living/home management based on clinical presentation, deficits, and needs. Educated the patient regarding recommendations and provided written instruction to facilitate compliance. Reviewed patient specific diagnosis in relation to activities of daily living/home management. Billing * Evaluation Low Complexity: 1 Unit Therapeutic Exercise Treatment Minutes: 15 Self-Care/Home Management Treatment Minutes: 15 Total Treatment Time Minutes (timed/untimed): 50 Kirstin Cotton PT documented in this encounter [facility] 10-24-2022 History of Presen t illness Narrative CC: Doreen Betancur is a 62 year old female who presents to the office for mood follow up HPI: Seen in office on 09/08/2022 At that time Patient has been struggling for over 1 day with feeling of anxiety that is uncontrolled and panic symptoms. Started within several hours of taking Dayquil medication for her cough/cold symptoms that she has had, with sick contacts being her . She denies suicidal or homicidal feelings. Is tearful and pacing in the room today. Her is present in the office and drove her here. She has had similar symptoms in the past with anesthesia. She is taking her 100 mg of Zoloft which she has taken for a while. No other new medications or changes. She was started on prn alprazolam to take until symptoms improved. At follow up on 09/26/2022 Anxiety symptoms feel like they are about 75% better but not fully. Also admits to struggling a little recently with just feeling flat, not happy but also not sad. Has been trying to get out of the house more such as going with her sister shopping or going to home and garden show. Has also opened up her front door to bring more light into the room to help with seasonal depression, when she wakes up in the morning. No SI or HI. Has good support from her and family. Her dose of zoloft was increased Currently Feels that she is interested in trial of another medication. Still struggling with anxiety symptoms despite being on 200 mg of Zoloft, no SI or HI. Has good support from her family. She is interested in trying Cymbalta medication. Right knee pain, anterior, inferior, feels sore with sitting to standing position changes and prolonged walking, has tried ibuprofen without relief. Not been consistent though with any ice or heat or topical rubs. Denies any injury or trauma. PAST MEDICAL HISTORY Diagnosis Date Anxiety Malignant neoplasm of breast (female), unspecified site 05/2005 right breast Vitamin D deficiency PAST SURGICAL HISTORY Procedure Laterality Date BREAST RECONSTRUCTION Right DELIVERY ONLY times four COLONOSCOPY FLX DX W/COLLJ SPEC WHEN PFRMD 12/11/2014 Repeat 2024 DILATION & CURETTAGE DX&/THER NONOBSTETRIC LAPAROSCOPY W/RMVL ADNEXAL STRUCTURES 07/05/2013 Laprascopic BSO h/o breast ca LIG/TRNSXJ FLP TUBE ABDL/VAG APPR UNI/BI 1998(?) MAST MODF RAD W/AX LYMPH NOD W/WO PECT/VICKY MIN Right 10/11/2019 Dr. Arceo, [facility] PAST SURGICAL HISTORY OF 06/17/2005 lumpectomy and removal of lymph nodes PAST SURGICAL HISTORY OF 2018 Laser surgery vaginal Current Outpatient Medications Medication Sig metoprolol tartrate, short acting, (LOPRESSOR) 25 mg tablet Take 1 tablet by mouth twice daily as needed (tachycardia, palpitations). clonazePAM (KLONOPIN) 0.5 mg tablet Take 1 tablet by mouth twice daily as needed for anxiety for up to 30 days. benzonatate (TESSALON PERLES) 100 mg capsule Take 2 capsules by mouth three times daily as needed. vitamin D3-folic acid 2,500 unit- 1 mg tab Take by mouth. taking 5000 pramipexole (MIRAPEX) 0.125 mg tablet Take 1 tablet by mouth daily at bedtime. clonazePAM (KLONOPIN) 1 mg tablet Take 1 tablet by mouth twice daily as needed for up to 30 days. MAGNESIUM ORAL Take 1 tablet by mouth once daily. ezetimibe (ZETIA) 10 mg tablet Take 1 tablet by mouth once daily. At supper or bedtime letrozole (FEMARA) 2.5 mg tablet Take 1 tablet by mouth once daily. Estradiol (VAGIFEM) 10 mcg vaginal tablet Use 10 mcg vaginally three times a week. cholecalciferol (VITAMIN D3) 400 unit tab Take 400 Units by mouth once daily. lisinopril (ZESTRIL, PRINIVIL) 10 mg tablet Take 1 tablet by mouth once daily. As needed for BLOOD PRESSURE >140/90 vitamin b complex capsule Take 1 capsule by mouth once daily. Lactobacillus acidophilus (PROBIOTIC ORAL) Take 1 capsule by mouth once daily. DULoxetine (CYMBALTA) 20 mg capsule Take 1 capsule by mouth once daily. No current facility-administered medications for this visit. ALLERGIES Allergen Reactions Penicillins Intolerance Unknown reaction as a child Dextromethorphan Mental Status Change anxiety Macrobid [Nitrofura* Hot, cold, achy Phenylephrine Intolerance anxiety Prednisone Other: See Comments Heart palpitations Adhesive Tape (Kassie* Intolerance Erythema after ribbon tape Social History Tobacco Use Smoking status: Never Smokeless tobacco: Never Vaping Use Vaping Use: Never used Substance Use Topics Alcohol use: Yes Comment: seldom Drug use: No ROS: See HPI PE: BP 134/80 Pulse 80 Temp (Src) 98 (Left Tympanic) Resp 16 Wt 174 lb (78.9kg) LMP 08/10/2012 Gen: A&OX3, NAD, non-toxic appearing HEENT: PERRLA, EOMs intact b/l, nares without drainage, pharynx without erythema, exudate, lesions, or drainage. Uvula midline. Neck: No LAD, no thyromegaly, no meningismus. CV: RRR, no murmur Lungs: CTA b/l, no wheezing Skin: No rashes, lesions, or wounds on exposed skin. Left knee with TTP tibial tendon insertion without any other signs of knee instability. No effusion of joint or tendon or ligament rupture Mild right arm generalized swelling without redness or impaired neurovascular tone ASSESSMENT/PLAN: 1. Situational anxiety - ICD9: 300.09, ICD10: F41.8 (primary diagnosis) - taper off zoloft as written for her today, start on cymbalta, f/u in 1-2 months in office. - DULOXETINE 20 MG CAPSULE,DELAYED RELEASE 2. Panic attack - ICD9: 300.01, ICD10: F41.0 - taper off zoloft as written for her today, start on cymbalta, f/u in 1-2 months in office. - DULOXETINE 20 MG CAPSULE,DELAYED RELEASE 3. Depressive disorder - ICD9: 311, ICD10: F32.A - taper off zoloft as written for her today, start on cymbalta, f/u in 1-2 months in office. - DULOXETINE 20 MG CAPSULE,DELAYED RELEASE 4. Lymphedema of arm - ICD9: 457.1, ICD10: I89.0 Hx of right axillary dissection surgery, referral to PHYSICAL THERAPY for further evaluation of lymphedema risk - CONSULT TO PHYSICAL THERAPY 5. History of lymph node dissection of right axilla - ICD9: V45.89, ICD10: Z98.890 Hx of right axillary dissection surgery, referral to PHYSICAL THERAPY for further evaluation of lymphedema risk - CONSULT TO PHYSICAL THERAPY 6. Arm swelling - ICD9: 729.81, ICD10: M79.89 Hx of right axillary dissection surgery, referral to PHYSICAL THERAPY for further evaluation of lymphedema risk - CONSULT TO PHYSICAL THERAPY 7. Acute pain of right knee - ICD9: 719.46, ICD10: M25.561 Likely tibial tendinitis, rest and icing and topical NSAID needed as d/w her today Ham Martinez DO Return if no improvement. Follow up with Ham Martinez DO. To ER if develops chest pain, shortness of breath Discussed risks, benefits, alternatives, and potential side effects of medications. Patient/Guardian expressed understanding and agreed with the plan. See patient instructions. Ham Martinez DO [address] [place] [address] documented in this encounter [facility] 10-20-2022 Note [facility] Pap Smear Specimen Adequacy October 20, 2022 1:29pm Comment . Satisfactory for evaluation. Endocervical and/or squamous metaplasticcells (endocervical component) are present. Comment on above: Satisfactory for loli luation. Endocervical and/or squamous metaplasticcells (endocervical component) are present. 10-08-2022 Miscellaneous Notes Patient notified. Yes, okay for her to increase her Zoloft dosing to 200 mg a day. Ham Martinez DO The following approved medication requests have been transmitted electronically. Requested Prescriptions Signed Prescriptions Disp Refills sertraline (ZOLOFT) 100 mg tablet 180 tablet 1 Sig: Take 2 tablets by mouth once daily. Authorizing Provider: HAM MARTINEZ DO Images from the original note were not included. Doreen Betancur Wstr Famp My Chart Rx Pool (supporting Ham Martinez DO) 1 minute ago (9:26 AM) Could I increase my Zoloft to 200mg? I'm still not feeling the best and we have a big weekend planned. Thank you Doreen documented in this encounter [facility] 09-26-2022 History of Presen t illness Narrative CC: Doreen Betancur is a 62 year old female who presents to the office for 3 week follow up HPI: Seen in office on 09/08/2022 At that time Patient has been struggling for over 1 day with feeling of anxiety that is uncontrolled and panic symptoms. Started within several hours of taking Dayquil medication for her cough/cold symptoms that she has had, with sick contacts being her . She denies suicidal or homicidal feelings. Is tearful and pacing in the room today. Her is present in the office and drove her here. She has had similar symptoms in the past with anesthesia. She is taking her 100 mg of Zoloft which she has taken for a while. No other new medications or changes. She was started on prn alprazolam to take until symptoms improved. Currently Anxiety symptoms feel like they are about 75% better but not fully. Also admits to struggling a little recently with just feeling flat, not happy but also not sad. Has been trying to get out of the house more such as going with her sister shopping or going to home and garden show. Has also opened up her front door to bring more light into the room to help with seasonal depression, when she wakes up in the morning. No SI or HI. Has good support from her and family. PAST MEDICAL HISTORY Diagnosis Date Anxiety Malignant neoplasm of breast (female), unspecified site 05/2005 right breast Vitamin D deficiency PAST SURGICAL HISTORY Procedure Laterality Date BREAST RECONSTRUCTION Right DELIVERY ONLY times four COLONOSCOPY FLX DX W/COLLJ SPEC WHEN PFRMD 12/11/2014 Repeat 2024 DILATION & CURETTAGE DX&/THER NONOBSTETRIC LAPAROSCOPY W/RMVL ADNEXAL STRUCTURES 07/05/2013 Laprascopic BSO h/o breast ca LIG/TRNSXJ FLP TUBE ABDL/VAG APPR UNI/BI 1998(?) MAST MODF RAD W/AX LYMPH NOD W/WO PECT/VICKY MIN Right 10/11/2019 Dr. Arceo, [facility] PAST SURGICAL HISTORY OF 06/17/2005 lumpectomy and removal of lymph nodes PAST SURGICAL HISTORY OF 2018 Laser surgery vaginal Current Outpatient Medications Medication Sig benzonatate (TESSALON PERLES) 100 mg capsule Take 2 capsules by mouth three times daily as needed. vitamin D3-folic acid 2,500 unit- 1 mg tab Take by mouth. taking 5000 pramipexole (MIRAPEX) 0.125 mg tablet Take 1 tablet by mouth daily at bedtime. clonazePAM (KLONOPIN) 1 mg tablet Take 1 tablet by mouth twice daily as needed for up to 30 days. MAGNESIUM ORAL Take 1 tablet by mouth once daily. ezetimibe (ZETIA) 10 mg tablet Take 1 tablet by mouth once daily. At supper or bedtime letrozole (FEMARA) 2.5 mg tablet Take 1 tablet by mouth once daily. Estradiol (VAGIFEM) 10 mcg vaginal tablet Use 10 mcg vaginally three times a week. lisinopril (ZESTRIL, PRINIVIL) 10 mg tablet Take 1 tablet by mouth once daily. As needed for BLOOD PRESSURE >140/90 vitamin b complex capsule Take 1 capsule by mouth once daily. Lactobacillus acidophilus (PROBIOTIC ORAL) Take 1 capsule by mouth once daily. metoprolol tartrate, short acting, (LOPRESSOR) 25 mg tablet Take 1 tablet by mouth twice daily as needed (tachycardia, palpitations). sertraline (ZOLOFT) 100 mg tablet Take 1 tablet by mouth once daily. sertraline (ZOLOFT) 50 mg tablet Take 1 tablet by mouth once daily. Take with 100 mg of zoloft to total 150 mg a day clonazePAM (KLONOPIN) 0.5 mg tablet Take 1 tablet by mouth twice daily as needed for anxiety for up to 30 days. cholecalciferol (VITAMIN D3) 400 unit tab Take 400 Units by mouth once daily. No current facility-administered medications for this visit. ALLERGIES Allergen Reactions Penicillins Intolerance Unknown reaction as a child Dextromethorphan Mental Status Change anxiety Macrobid [Nitrofura* Hot, cold, achy Phenylephrine Intolerance anxiety Prednisone Other: See Comments Heart palpitations Adhesive Tape (Kassie* Intolerance Erythema after ribbon tape Social History Tobacco Use Smoking status: Never Smokeless tobacco: Never Vaping Use Vaping Use: Never used Substance Use Topics Alcohol use: Yes Comment: seldom Drug use: No ROS: See HPI PE: BP 100/60 Pulse 80 Temp (Src) 97.3 (Temporal) Resp 20 Wt 173 lb (78.5kg) LMP 08/10/2012 Gen: A&OX3, NAD, non-toxic appearing HEENT: PERRLA, EOMs intact b/l, nares without drainage, pharynx without erythema, exudate, lesions, or drainage. Uvula midline. Neck: No LAD, no thyromegaly, no meningismus. CV: RRR, no murmur Lungs: CTA b/l, no wheezing Skin: No rashes, lesions, or wounds on exposed skin. Somewhat sullen appearing, well dressed ASSESSMENT/PLAN: 1. Panic attack - ICD9: 300.01, ICD10: F41.0 (primary diagnosis) - continue zoloft and prn use of clonazepam. Consider increasing zoloft or change SSRI to alternative at follow up if symptoms still aren't improved 2. Palpitations - ICD9: 785.1, ICD10: R00.2 rx refilled. - METOPROLOL TARTRATE 25 MG TABLET 3. Situational anxiety - ICD9: 300.09, ICD10: F41.8 - continue zoloft and prn use of clonazepam. Consider increasing zoloft or change SSRI to alternative at follow up if symptoms still aren't improved - SERTRALINE 100 MG TABLET - CLONAZEPAM 0.5 MG TABLET 4. Situational insomnia - ICD9: 307.41, ICD10: F51.09 - continue zoloft and prn use of clonazepam. Consider increasing zoloft or change SSRI to alternative at follow up if symptoms still aren't improved - SERTRALINE 100 MG TABLET - CLONAZEPAM 0.5 MG TABLET 5. Depressive disorder - ICD9: 311, ICD10: F32.A - continue zoloft and prn use of clonazepam. Consider increasing zoloft or change SSRI to alternative at follow up if symptoms still aren't improved Ham Martinez DO PDMP website checked and validated. All prescriptions have been APPROPRIATELY filled. No suspicious activity was identified. 09/26/2022 by Ham Martinez DO Return if no improvement. Follow up with Ham Martinez DO. To ER if develops chest pain, shortness of breath Discussed risks, benefits, alternatives, and potential side effects of medications. Patient/Guardian expressed understanding and agreed with the plan. See patient instructions. Ham Martinez DO [address] [place] [address] documented in this encounter [facility] 09-26-2022 Instructions Ham Martinez DO - 09/26/2022 11:30 AM EST Okay to take 1/2 or 1 whole tablet of your metoprolol when your heart is racing with anxiety just like you can take this if your blood pressure or heart rate is high. This can also help the anxiety. documented in this encounter [facility] 09-17-2022 History of Presen t illness Narrative This note was created using GOQii. Subjective Doreen Betancur is a 62 year old female. HPI Patient presents with sinus congestion, cough, chills fever over the past 10 days. She states she has a lot of sinus pressure and headaches. Cough seems to have worsened in the past few days. Her and daughter are all sick with similar symptoms. No home COVID test done. No vomiting or diarrhea. She tried DayQuil [id number] but the dextromethorphan and phenylephrine gave her anxiety. Review of Systems Constitutional: Positive for chills, fatigue and fever. HENT: Positive for congestion, sinus pressure and sinus pain. Negative for ear pain. Respiratory: Positive for cough. Negative for shortness of breath and wheezing. Cardiovascular: Negative. Gastrointestinal: Negative. Genitourinary: Negative. Musculoskeletal: Negative. Skin: Negative for rash. All other systems reviewed and are negative. PAST MEDICAL HISTORY Diagnosis Date Anxiety Malignant neoplasm of breast (female), unspecified site 05/2005 right breast Vitamin D deficiency Current Outpatient Medications Medication Sig Dispense Refill vitamin D3-folic acid 2,500 unit- 1 mg tab Take by mouth. taking 5000 pramipexole (MIRAPEX) 0.125 mg tablet Take 1 tablet by mouth daily at bedtime. 60 tablet 2 MAGNESIUM ORAL Take 1 tablet by mouth once daily. sertraline (ZOLOFT) 100 mg tablet Take 1 tablet by mouth once daily. In addition to 50mg tablet, for total of 150mg daily. 30 tablet 3 ezetimibe (ZETIA) 10 mg tablet Take 1 tablet by mouth once daily. At supper or bedtime 90 tablet 1 letrozole (FEMARA) 2.5 mg tablet Take 1 tablet by mouth once daily. 90 tablet 3 Estradiol (VAGIFEM) 10 mcg vaginal tablet Use 10 mcg vaginally three times a week. cholecalciferol (VITAMIN D3) 400 unit tab Take 400 Units by mouth once daily. lisinopril (ZESTRIL, PRINIVIL) 10 mg tablet Take 1 tablet by mouth once daily. As needed for BLOOD PRESSURE >140/90 30 tablet 2 vitamin b complex capsule Take 1 capsule by mouth once daily. Lactobacillus acidophilus (PROBIOTIC ORAL) Take 1 capsule by mouth once daily. metoprolol tartrate, short acting, (LOPRESSOR) 25 mg tablet Take 1 tablet by mouth twice daily as needed (tachycardia, palpitations). 60 tablet 5 doxycycline (VIBRA-TABS) 100 mg tablet Take 1 tablet by mouth twice daily for 7 days. 14 tablet 0 benzonatate (TESSALON PERLES) 100 mg capsule Take 2 capsules by mouth three times daily as needed. 30 capsule 0 clonazePAM (KLONOPIN) 1 mg tablet Take 1 tablet by mouth twice daily as needed for up to 30 days. 60 tablet 2 No current facility-administered medications for this visit. PAST SURGICAL HISTORY Procedure Laterality Date BREAST RECONSTRUCTION Right DELIVERY ONLY times four COLONOSCOPY FLX DX W/COLLJ SPEC WHEN PFRMD 12/11/2014 Repeat 2024 DILATION & CURETTAGE DX&/THER NONOBSTETRIC LAPAROSCOPY W/RMVL ADNEXAL STRUCTURES 07/05/2013 Laprascopic BSO h/o breast ca LIG/TRNSXJ FLP TUBE ABDL/VAG APPR UNI/BI 1998(?) MAST MODF RAD W/AX LYMPH NOD W/WO PECT/VICKY MIN Right 10/11/2019 Dr. Arceo, [facility] PAST SURGICAL HISTORY OF 06/17/2005 lumpectomy and removal of lymph nodes PAST SURGICAL HISTORY OF 2018 Laser surgery vaginal FAMILY HISTORY Problem Relation Age of Onset Hypertension Mother Heart Father NC at age 61 other (melanoma) Sister Heart Paternal Grandfather [place] age 61 Social History Tobacco Use Smoking status: Never Smokeless tobacco: Never Vaping Use Vaping Use: Never used Substance Use Topics Alcohol use: Yes Comment: seldom Drug use: No Objective BP 126/80 Pulse 110 Temp 37.2 C (99 F) Resp 18 Wt 79.8 kg (176 lb) LMP 08/10/2012 SpO2 96% BMI 29.68 kg/m Physical Exam Vitals reviewed. Constitutional: Appearance: Normal appearance. HENT: Head: Normocephalic and atraumatic. Right Ear: Tympanic membrane, ear canal and external ear normal. Left Ear: Tympanic membrane, ear canal and external ear normal. Nose: Right Sinus: Maxillary sinus tenderness and frontal sinus tenderness present. Left Sinus: Maxillary sinus tenderness and frontal sinus tenderness present. Mouth/Throat: Lips: [place]. Mouth: Mucous membranes are moist. Pharynx: Oropharynx is clear. Cardiovascular: Rate and Rhythm: Normal rate and regular rhythm. Heart sounds: Normal heart sounds. Pulmonary: Effort: Pulmonary effort is normal. Breath sounds: Normal breath sounds. Musculoskeletal: Cervical back: Neck supple. Lymphadenopathy: Cervical: No cervical adenopathy. Skin: General: Skin is warm and dry. Findings: No rash. Neurological: General: No focal deficit present. Mental Status: She is alert and oriented to person, place, and time. Assessment and Plan ASSESSMENT/PLAN: 1. Sinobronchitis - ICD9: 473.9, 490, ICD10: J32.9, J40 - Will begin treatment with Doxycycline and tessalon - Follow up in 3-5 days if symptoms persist or worsen. Amparo Hager PA-C documented in this encounter [facility] 09-09-2022 Miscellaneous Notes Patient notified. Verbalized understanding. Would recommend she tries to just take the alprazolam medication this AM, 1/2 dose of the clonazepam 0.5 mg at lunch, alprazolam with supper then then the clonazepam 0.5 mg at bedtime. Would like then to go back to just one of these medications starting tomorrow if able Ham Martinez DO Pt called and was seen yesterday for panic attack. Pt calling to see what she needs to take today and when. She is on Klonopin and was put on Xanax. Please advise pt. UPDATE: Pt woke up today and felt a lot better but it is creeping back in. Chrystal Lui LPN documented in this encounter [facility] 09-09-2022 History of Presen t illness Narrative CC: Doreen Betancur is a 62 year old female who presents to the office for anxiety HPI: Patient has been struggling for over 1 day with feeling of anxiety that is uncontrolled and panic symptoms. Started within several hours of taking Dayquil medication for her cough/cold symptoms that she has had, with sick contacts being her . She denies suicidal or homicidal feelings. Is tearful and pacing in the room today. Her is present in the office and drove her here. She has had similar symptoms in the past with anesthesia. She is taking her 100 mg of Zoloft which she has taken for a while. No other new medications or changes. PAST MEDICAL HISTORY Diagnosis Date Anxiety Malignant neoplasm of breast (female), unspecified site 05/2005 right breast Vitamin D deficiency PAST SURGICAL HISTORY Procedure Laterality Date BREAST RECONSTRUCTION Right DELIVERY ONLY times four COLONOSCOPY FLX DX W/COLLJ SPEC WHEN PFRMD 12/11/2014 Repeat 2024 DILATION & CURETTAGE DX&/THER NONOBSTETRIC LAPAROSCOPY W/RMVL ADNEXAL STRUCTURES 07/05/2013 Laprascopic BSO h/o breast ca LIG/TRNSXJ FLP TUBE ABDL/VAG APPR UNI/BI 1998(?) MAST MODF RAD W/AX LYMPH NOD W/WO PECT/VICKY MIN Right 10/11/2019 Dr. Arceo, [facility] PAST SURGICAL HISTORY OF 06/17/2005 lumpectomy and removal of lymph nodes PAST SURGICAL HISTORY OF 2018 Laser surgery vaginal Current Outpatient Medications Medication Sig MAGNESIUM ORAL Take 1 tablet by mouth once daily. sertraline (ZOLOFT) 100 mg tablet Take 1 tablet by mouth once daily. In addition to 50mg tablet, for total of 150mg daily. ezetimibe (ZETIA) 10 mg tablet Take 1 tablet by mouth once daily. At supper or bedtime letrozole (FEMARA) 2.5 mg tablet Take 1 tablet by mouth once daily. Estradiol (VAGIFEM) 10 mcg vaginal tablet Use 10 mcg vaginally three times a week. cholecalciferol (VITAMIN D3) 400 unit tab Take 400 Units by mouth once daily. lisinopril (ZESTRIL, PRINIVIL) 10 mg tablet Take 1 tablet by mouth once daily. As needed for BLOOD PRESSURE >140/90 vitamin b complex capsule Take 1 capsule by mouth once daily. Lactobacillus acidophilus (PROBIOTIC ORAL) Take 1 capsule by mouth once daily. metoprolol tartrate, short acting, (LOPRESSOR) 25 mg tablet Take 1 tablet by mouth twice daily as needed (tachycardia, palpitations). vitamin D3-folic acid 2,500 unit- 1 mg tab Take by mouth. taking 5000 ALPRAZolam (XANAX) 0.5 mg tablet Take 1 tablet by mouth three times daily as needed (panic attack) for up to 5 days. pramipexole (MIRAPEX) 0.125 mg tablet Take 1 tablet by mouth daily at bedtime. clonazePAM (KLONOPIN) 1 mg tablet Take 1 tablet by mouth twice daily as needed for up to 30 days. No current facility-administered medications for this visit. ALLERGIES Allergen Reactions Penicillins Intolerance Unknown reaction as a child Macrobid [Nitrofura* Hot, cold, achy Prednisone Other: See Comments Heart palpitations Adhesive Tape (Kassie* Intolerance Erythema after ribbon tape Social History Tobacco Use Smoking status: Never Smokeless tobacco: Never Vaping Use Vaping Use: Never used Substance Use Topics Alcohol use: Yes Comment: seldom Drug use: No ROS: See HPI PE: BP 130/82 Pulse 88 Temp (Src) 97.8 (Left Tympanic) Resp 20 Wt 170 lb (77.1kg) LMP 08/10/2012 Gen: A&OX3, tearful in office, appears very anxious, pacing in the room in the office. HEENT: PERRLA, EOMs intact b/l, nares with clear anterior and posterior drainage, pharynx without erythema, exudate, lesions, or drainage. Uvula midline. MMM Neck: No LAD, no thyromegaly, no meningismus. CV: RRR, no murmur Lungs: CTA b/l, no wheezing Skin: No rashes, lesions, or wounds on exposed skin. No edema, normal pulses ASSESSMENT/PLAN: 1. Restless leg syndrome - ICD9: 333.94, ICD10: G25.81 (primary diagnosis) rx refilled as below - PRAMIPEXOLE 0.125 MG TABLET 2. Panic attack - ICD9: 300.01, ICD10: F41.0 - appears to be in acute anxiety / panic with symptoms likely from the phenylephrine and dextromethorphan that she took in her Dayquil medication which can cause anxiety in patients. She and have been told to avoid these over the counter medications due to likely will cause this again. - ALPRAZOLAM 0.5 MG TABLET Ham Martinez DO PDMP website checked and validated. All prescriptions have been APPROPRIATELY filled. No suspicious activity was identified. 09/09/2022 by Ham Martinez DO Return if no improvement. Follow up with Ham Martinez DO. To ER if develops chest pain, shortness of breath Discussed risks, benefits, alternatives, and potential side effects of medications. Patient/Guardian expressed understanding and agreed with the plan. See patient instructions. Ham Martinez DO [address] [place] [address] documented in this encounter [facility] 08-22-2022 History of Presen t illness Narrative The patient was seen and evaluated by the [facility]. REASON FOR VISIT H/o right breast cancer S/p right lumpectomy, chemotherapy, and XRT (2005) H/o right breast cancer recurrence S/p right mastectomy, 10/11/2019 S/p chemotherapy S/p delayed right breast reconstruction with free ms-TRAM flap and excision of chronic seroma cavity right chest wall ([place]), 08/03/2021 S/p I&D of abdominal wall hematoma 09/17/21 S/p left breast reduction mastopexy, revision of right breast with excision of skin along IMF, fat grafting to port site and left chest hollowing, excision of left flank dog-ear, 05/27/2022 SUBJECTIVE Doreen Betancur is a 61 y.o. patient presents for scheduled follow-up s/p her most recent procedure. She is doing well overall and is very happy with her results. Does not have any concerns today. Review of systems: No fevers/chills. No wound symptoms such as redness, swelling, increasing pain, or drainage. OBJECTIVE GENERAL: NAD, A&O RIGHT BREAST: Breast absent. Flap viable. Incision well-healed. No fluid collection. No infection. No concerns. LEFT BREAST: Incision well-healed. NAC viable No fluid collection. No infection. No concerns. ABDOMEN: Incision well-healed. No fluid collection. No infection. No concerns. ASSESSMENT Patient is doing well overall. All incisions are well-healed. No concerns. PLAN - Activity restrictions lifted. - RTC as needed. Call if any questions or concerns. A total of 15 minutes of [id number]-kl-[id number] time were spent with the patient, of which >50% were spent on counseling and coordination of care. documented in this encounter [facility] 06-26-2022 Miscellaneous Notes Pt notified of results via [employer]. Malaika Greco Ma Please let patient know that bone scan results show osteopenia. They need to be taking a daily calcium and Vitamin D3 supplement. *1200 mg - 1500 mg calcium per day *800 - 1000 International Units of vitamin D3 per day Crystal Ayala [email or web address].[email or web address] documented in this encounter [facility] 06-23-2022 History of Presen t illness Narrative CC: Doreen Betancur is a 62 year old female who presents to the office for follow up HPI: Overall doing well URI symptoms for the last 1 week, no fevers or chills, Sinus pressure and PND and rhinorrhea by description, + sick contacts with and daughter. Has been using OTC medications without benefit. Anxiety, stable, better since she is further out from her breast reconstructive post operative period which is when her symptoms seem to be the most severe. Taking Zoloft as prescribed and Klonopin as needed- not typically daily HPL, tolerating Zetia, unable to tolerate statin medications Cholesterol, Total Date Value Ref Range Status 06/16/2022 229 (H) <200 mg/dL Final Comment: <200 mg/dL, Desirable 200-239 mg/dL, Borderline high >239 mg/dL, High HDL Cholesterol Date Value Ref Range Status 06/16/2022 54 >39 mg/dL Final Comment: 40-59 mg/dL, Acceptable >59 mg/dL, High: Negative risk factor for coronary heart disease <40 mg/dL, Low: Positive risk factor for coronary heart disease LDL Cholesterol Date Value Ref Range Status 06/16/2022 149 (H) <100 mg/dL Final Comment: <100 mg/dL, Optimal 100-129 mg/dL, Near optimal/above optimal 130-159 mg/dL, Borderline high 160-189 mg/dL, High >189 mg/dL, Very high Secondary prevention optimal LDL Cholesterol levels are recommended to be < 70 mg/dL Triglyceride Date Value Ref Range Status 06/16/2022 128 <150 mg/dL Final Comment: <150 mg/dL, Normal 150-199 mg/dL, Borderline high 200-499 mg/dL, High >499 mg/dL, Very high Glucose (mg/dL) Date Value 06/16/2022 103 07/04/2021 101 Potassium (mmol/L) Date Value 06/16/2022 4.7 07/04/2021 4.4 Sodium (mmol/L) Date Value 06/16/2022 140 07/04/2021 138 Chloride (mmol/L) Date Value 06/16/2022 104 07/04/2021 102 CO2 (mmol/L) Date Value 06/16/2022 27 07/04/2021 26 Creatinine (mg/dL) Date Value 06/16/2022 0.73 07/04/2021 0.73 BUN (mg/dL) Date Value 06/16/2022 20 07/04/2021 17 Anion Gap (mmol/L) Date Value 06/16/2022 9 07/04/2021 10 Calcium (mg/dL) Date Value 07/04/2021 10.0 Calcium, Total (mg/dL) Date Value 06/16/2022 9.6 Protein, Total (g/dL) Date Value 06/16/2022 6.9 07/04/2021 6.9 Albumin (g/dL) Date Value 06/16/2022 4.5 07/04/2021 4.6 Bilirubin, Total (mg/dL) Date Value 06/16/2022 0.5 07/04/2021 0.6 Alkaline Phosphatase (U/L) Date Value 06/16/2022 80 07/04/2021 84 AST (U/L) Date Value 06/16/2022 23 07/04/2021 22 ALT (U/L) Date Value 06/16/2022 33 07/04/2021 23 Hemoglobin (g/dL) Date Value 12/06/2021 12.4 07/04/2021 13.6 Hematocrit (%) Date Value 12/06/2021 39.3 07/04/2021 41.4 WBC (k/uL) Date Value 12/06/2021 4.20 07/04/2021 4.15 PAST MEDICAL HISTORY Diagnosis Date Anxiety Malignant neoplasm of breast (female), unspecified site 05/2005 right breast Vitamin D deficiency PAST SURGICAL HISTORY Procedure Laterality Date BREAST RECONSTRUCTION Right DELIVERY ONLY times four COLONOSCOPY FLX DX W/COLLJ SPEC WHEN PFRMD 12/11/2014 Repeat 2024 DILATION & CURETTAGE DX&/THER NONOBSTETRIC LAPAROSCOPY W/RMVL ADNEXAL STRUCTURES 07/05/2013 Laprascopic BSO h/o breast ca LIG/TRNSXJ FLP TUBE ABDL/VAG APPR UNI/BI 1998(?) MAST MODF RAD W/AX LYMPH NOD W/WO PECT/VICKY MIN Right 10/11/2019 Dr. Arceo, [facility] PAST SURGICAL HISTORY OF 06/17/2005 lumpectomy and removal of lymph nodes PAST SURGICAL HISTORY OF 2018 Laser surgery vaginal Current Outpatient Medications Medication Sig MAGNESIUM ORAL Take 1 tablet by mouth once daily. ezetimibe (ZETIA) 10 mg tablet Take 1 tablet by mouth once daily. At supper or bedtime letrozole (FEMARA) 2.5 mg tablet Take 1 tablet by mouth once daily. pramipexole (MIRAPEX) 0.5 mg tablet Take 1-2 tablets by mouth three times daily. Estradiol (VAGIFEM) 10 mcg vaginal tablet Use 10 mcg vaginally three times a week. cholecalciferol (VITAMIN D3) 400 unit tab Take 400 Units by mouth once daily. lisinopril (ZESTRIL, PRINIVIL) 10 mg tablet Take 1 tablet by mouth once daily. As needed for BLOOD PRESSURE >140/90 vitamin b complex capsule Take 1 capsule by mouth once daily. Lactobacillus acidophilus (PROBIOTIC ORAL) Take 1 capsule by mouth once daily. metoprolol tartrate, short acting, (LOPRESSOR) 25 mg tablet Take 1 tablet by mouth twice daily as needed (tachycardia, palpitations). clonazePAM (KLONOPIN) 1 mg tablet Take 1 tablet by mouth twice daily as needed for up to 30 days. sertraline (ZOLOFT) 100 mg tablet Take 1 tablet by mouth once daily. In addition to 50mg tablet, for total of 150mg daily. No current facility-administered medications for this visit. ALLERGIES Allergen Reactions Penicillins Intolerance Unknown reaction as a child Macrobid [Nitrofura* Hot, cold, achy Prednisone Other: See Comments Heart palpitations Adhesive Tape (Kassie* Intolerance Erythema after ribbon tape Social History Tobacco Use Smoking status: Never Smokeless tobacco: Never Vaping Use Vaping Use: Never used Substance Use Topics Alcohol use: Yes Comment: seldom Drug use: No ROS: See HPI PE: BP 132/86 Pulse 68 Resp 16 Wt 169 lb (76.7kg) LMP 08/10/2012 Gen: A&OX3, NAD, non-toxic appearing HEENT: PERRLA, EOMs intact b/l, nares with anterior and posterior drainage, pharynx without erythema, exudate, lesions, + post nasal drainage. Uvula midline. MMM, EAC and TM wnl Neck: No LAD, no thyromegaly, no meningismus. CV: RRR, no murmur Lungs: CTA b/l, no wheezing, coughing in office today Skin: No rashes, lesions, or wounds on exposed skin. Healing incision right breast without openings or signs of infection No peripheral edema, normal pulses ASSESSMENT/PLAN: 1. Situational anxiety - ICD9: 300.09, ICD10: F41.8 (primary diagnosis) rx refilled, stable - CLONAZEPAM 1 MG TABLET 2. Situational insomnia - ICD9: 307.41, ICD10: F51.09 - rx refilled, stable - CLONAZEPAM 1 MG TABLET 3. Encounter for immunization - ICD9: V03.89, ICD10: Z23 - INFLUENZA VACCINE QUADRIVALENT 6 MO - 64 YRS IM 4. Dyslipidemia - ICD9: 272.4, ICD10: E78.5 - suboptimal control - Continue current medication. 5. Osteopenia of multiple sites - ICD9: 733.90, ICD10: M85.89 - Reviewed the need for Calcium and Vitamin D supplements and weight bearing exercise as tolerated 6. Vitamin D deficiency - ICD9: 268.9, ICD10: E55.9 - stable 7. Fatigue, unspecified type - ICD9: 780.79, ICD10: R53.83 stable 8. Multiple joint pain - ICD9: 719.49, ICD10: M25.50 stable 9. URI, acute - ICD9: 465.9, ICD10: J06.9 - Discussed viral etiology and rationale for treatment. - Symptomatic treatment with prn analgesia - Supportive care with fluids and rest - AZITHROMYCIN 250 MG TABLET Ham Martinez DO Return if no improvement. Follow up with Ham Martinez DO. To ER if develops chest pain, shortness of breath Discussed risks, benefits, alternatives, and potential side effects of medications. Patient/Guardian expressed understanding and agreed with the plan. See patient instructions. Ham Martinez DO [address] [place] [address] documented in this encounter [facility] 06-16-2022 History of Presen t illness Narrative Radiology Service Progress Note PATIENT NAME: Doreen Betancur DATE OF SERVICE: June 16, 2022 TIME: 9:33 AM PATIENT IDENTITY VERIFICATION COMPLETED USING TWO (2) IDENTIFIERS: Name and Date of confirmed by patient verbally. FALL SCREENING: Has the patient had 2 falls in the last year or 1 fall with injury or currently using an Ambulatory Assistive Device (Walker, Cane, Wheelchair, Crutches, etc.)? No PATIENT GENDER DATA: Female. status: : No status: NO. PATIENT RELEVANT IMPLANT DATA REVIEWED: Not Applicable RADIOLOGY DEPARTMENT: Bone Density PERIPHERAL IV DATA: Not applicable SIGNED BY: RT Rich(R) June 16, 2022 9:33 AM documented in this encounter [facility] 06-02-2022 Miscellaneous Notes Spoke with patient. Given message from provider's office. Patient verbalizes understanding. She states she has been taking Klonopin one half of 1 mg tablet three times daily. She has an appointment on 06/23/22 for three month follow up with PCP. Offered sooner appointment which she declined. Purnima Dougherty RN Called and left a voicemail for the Patient to call back and ask for a nurse to receive the providers message. Roselia Jalloh RN Please inform patient this is also likely being influenced by the anesthesia that she received and will likely take some time to resolve/improve. Is she taking her klonopin medication? Ham Martinez DO message turned into TE: Good morning. I had my surgery on Thursday it went very well .Woke up fairly good. Then the panic set in . Every morning since then ,the same thing. I get up feeling pretty good. then haft to an hour later the panic starts to creep back in, any thoughts. Please advise. Latia Rai MA documented in this encounter [facility] 06-02-2022 History of Presen t illness Narrative DRAIN LOG DRAIN # 1 Date Output 05/30 8 mL / 4 mL / 3 mL mL DRAIN # 2 Date Output 05/30 15 mL 05/31 6.5 mL / 4 mL mL The patient was seen and evaluated by the PAC. REASON FOR VISIT H/o right breast cancer S/p right lumpectomy, chemotherapy, and XRT (2005) H/o right breast cancer recurrence S/p right mastectomy, 10/11/2019 S/p chemotherapy S/p delayed right breast reconstruction with free ms-TRAM flap and excision of chronic seroma cavity right chest wall ([place]), 08/03/2021 S/p I&D of abdominal wall hematoma 09/17/21 S/p left breast reduction mastopexy, revision of right breast with excision of skin along IMF, fat grafting to port site and left chest hollowing, excision of left flank dog-ear, 05/27/2022 SUBJECTIVE Doreencolby Betancur is a 61 y.o. patient presents 6 days status post her most recent procedure. She is doing well. She notes minimal pain and not taking pain medication. She has 2 drains present. Review of systems: No fevers/chills. No wound symptoms such as redness, swelling, increasing pain, or drainage. OBJECTIVE Vitals: 06/02/22 1026 BP: (!) 173/98 Pulse: 101 Resp: 16 Temp: 98.4 degrees F (36.9 degrees C) TempSrc: Oral SpO2: 98% GENERAL: NAD, A&O RIGHT BREAST: breast absent. Flap viable. No concerns for fluid collection or infection LEFT BREAST: Incision clean dry and intact, NAC viable, ecchymosis present globally, no fluid collection. ABDOMEN: Incision CDI. Healing well. No fluid collections, no concerns ASSESSMENT Doing well 6 days status post most recent revision procedure. PLAN - discontinue both drains today. - no heavy lifting for a total of 2 weeks postop. Then may increase weight limit as tolerated. - continue with supportive bra for a total of 4 weeks from surgery. - follow-up 3 months. A total of 15 minutes of rtaw-mo-crzi time were spent with the patient, of which >50% were spent on counseling and coordination of care. documented in this encounter [facility] 05-30-2022 Miscellaneous Notes message turned into TE. Latia Rai MA documented in this encounter [facility] 05-27-2022 Note Formatting of this n ote might be different from the original. Patient meets ASU discharge criteria and discharged per MD order to home. Patient taken by wheelchair by MONSE Pham to awaiting car. All belongings gathered with patient. Family/friend to drive patient home and care for patient 24 hours post-op. [facility] Miscellaneous Notes Patient meets ASU discharge criteria and discharged per MD order to home. Patient taken by wheelchair by MONSE Pham to awaiting car. All belongings gathered with patient. Family/friend to drive patient home and care for patient 24 hours post-op. Discharge instructions and prescriptions discussed with patient and her . All questions answered. Patient given dressing and drain supplies. Operative Report DATE PERFORMED: 05/27/2022 PREOPERATIVE DIAGNOSES: History of right breast cancer, status post right mastectomy and autologous DIP flap reconstruction. POSTOPERATIVE DIAGNOSES: History of right breast cancer, status post right mastectomy and autologous DIP flap reconstruction. OPERATIVE PROCEDURES PERFORMED: 1. Left breast balancing reduction mammoplasty. 2. Revision of right breast with excision of DIP flap dermal remnant and skin along the IM crease (8 x 1.5 cm). 3. Fat grafting to port site, left chest and hollowing to the superior medial pole right breast. 4. Excision of dog-ear left flank (7 x 1.5 cm). 5. [place] of fat and reduction of bilateral flank dog-ears with Circlezon system aspiration needles and 10 cc syringes. 6. Excision of mole, right breast (mole size was approximately 0.8 mm in diameter. Excision was 1.5 x 0.8 mm skin ellipse). SURGEON(S): Jose Francisco Coughlin MD. ASSISTANTS: Placido Mckeon MD and Ian Dhillon PA-C. ESTIMATED BLOOD LOSS: For procedure was approximately 100 cc. COMPLICATIONS: None. DISPOSITION: Stable to recovery room. DRAINS: One 10-Martiniquais Jose drain to each breast. SPECIMEN: Was tissue from left breast with short stitch marking superior long stitch marking lateral and double stitch marking anterior margins. ANESTHESIA: General anesthetic endotracheal tube. PREAMBLE: Ms. Betancur is a delightful 62-year-old woman with a history of right breast cancer who underwent a right mastectomy and DIP flap right breast reconstruction. The patient's postop course was complicated by hematoma that was evacuated. Since then, she has done well. She now presents with some breast asymmetry. The left breast being slightly larger and more ptotic than the right, as well as some hollowing to the superomedial aspect of the right breast and some volume loss under the port site in the left breast as well as band of tissue causing a depression across the upper part of the right breast. The patient also had a compound mole on the upper right breast that she desired to have removed. 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 There was excess skin and bilaterally there was excess volume. The risks and benefits of all the above-mentioned procedures were discussed in great detail with the patient who understood and wished to proceed. OPERATIVE PROCEDURE IN DETAIL: The patient was taken to the operating room, placed on the operating room table in supine position and was prepped and draped in usual fashion for this procedure after undergoing general anesthetic and endotracheal intubation. An appropriate surgical time-out was performed and the patient had been marked in the upright standing position. We began the operation by placing a stab incision in the prior flank incisions and through this, using the Nunez needle aspiration system and 10 cc syringes harvested approximately 20-30 cc of fat from each of the flanks. Following this, the fat was transferred into the centrifuge and spun for 3 minutes. The liquid portion was then discarded as was the bloody portion and the injectable fat was transferred into 3 cc syringes for later use. On the left-hand side, we excised the excess skin as outlined above in a full-thickness fashion. Careful hemostasis was achieved. This was irrigated with copious amounts of normal saline and a layered closure was then accomplished with 3-0 Vicryl sutures for the deep dermal interrupted closure followed by an intradermal running 4-0 Monocryl skin closure. A single stab incision on the right-hand side was closed with a simple 5-0 plain gut suture. Next, we turned our attention to the right breast. Here the superior mastectomy skin incision was reopened and the mastectomy skin flap was re-elevated off the underlying DIP flap. We noted that there was some residual dermis on the JAY JAY flap that was likely part of the cause of some of the band like depression across the upper right breast and therefore the dermis was entirely removed. We also noted that there was some excess volume in the infraclavicular region that created almost a double bubble appearance therefore some of that the volume of the flap in the upper outer quadrant was resected entirely. Any scar tissue in this area was removed, which softened the entire upper pole of the right breast significantly. We then utilized the Nunez needle injection system and 3 cc syringes to inject some fat in a wyatt-cross pattern throughout the upper superior medial pole of the right breast, correcting the relative volume deficit and depression in this area with approximately 10-19 cc of fat, which was injected in a wyatt-cross pattern in multiple levels injecting never more than 0.5 cc of fat and on withdrawal of the needle only. Once we were satisfied with the correction, the right breast was irrigated with copious amounts of normal saline. Careful hemostasis was achieved. A 10-Martiniquais Jose drain was inserted and the incision was then closed in a layered fashion using 3-0 Vicryl for the deep dermal interrupted closure and a 4-0 Monocryl intradermal running skin closure. Along the right inframammary crease, an ellipse of skin was excised that was excessive in this area and gave a small overhang over the inframammary crease with the above- mentioned dimensions. This was excised in a full-thickness fashion. Careful hemostasis was achieved. This was irrigated as well and closed in a layered fashion using 3-0 Vicryl and 4-0 Monocryl as outlined above. We next turned our attention to the left breast. Here a Fair pattern reduction pattern had been outlined with the patient upright standing position, and we de-epithelialized the inferior and periareolar region on the left breast and then elevated the superolateral, superomedial breast flaps at a thickness approximately twice as thick as a normal mastectomy skin flap. The undermining was performed only far enough to transpose the flaps comfortably without any undue tension. We removed approximately 30 g of tissue from the upper central pole of the left breast to better match the right breast overall shape and volume. This tissue was marked with a short stitch marking the superior edge, long stitch the lateral and double stitch the anterior portion of the specimen. The breast was then irrigated with copious amounts of normal saline. Careful hemostasis was achieved and a 10-Martiniquais Jose drain was inserted here as well. We then closed the ends of the breast with the layered fashion using 3-0 Vicryl for the deep dermal interrupted closure followed by an intradermal running 3-0 Monocryl skin closure. Of note, the areola had been developed using a 45 mm cookie cutter and was inset into a 42 mm skin opening in its new location along the breast meridian. The inset was also performed using interrupted 3-0 Vicryl sutures and intradermal running 4 Monocryl skin closure. Ultimately, the incisions were dressed with Xeroform, ABD pads, and the patient was placed in a surgical bra as well as an abdominal binder. ESTIMATED BLOOD LOSS: For the entire procedure was around 100 cc. No complications were encountered. The patient tolerated the procedure well and was then returned to recovery room in stable condition following extubation in the operating room theater. Please note that all sponge, needle, and instrument counts were correct at the close of the procedure. Dictated By: MD Jose Francisco Waite MD ATTENDING RJS/Oanh JOB: [id number] DOC: [id number] Doreen Betancur ([id number]) PRE OPERATIVE DIAGNOSIS Personal history of malignant neoplasm of breast [Z85.3] POST OPERATIVE DIAGNOSIS Post-Op Diagnosis Codes: * Personal history of malignant neoplasm of breast [Z85.3] PROCEDURE PERFORMED Procedure(s) (LRB): balancing reduction mastopexy (Left) REVISION BREAST RECONSTRUCTION (Right) Dog ear resections bilateral flanks (Bilateral) GRAFT AUTOLOGOUS FAT TRUNK BREAST (Bilateral) EXCISION LESION SKIN TRUNK (Right) PRIMARY CLOSURE Yes INTRAOPERATIVE FINDINGS No significant abnormalities SURGEON Surgeon(s) and Role: * Jose Francisco Coughlin MD - Primary ANESTHESIOLOGIST Anesthesiologist: Franca Bautista MD SURGICAL STAFF Fur Ironer: Annie Lorenzo RN Physician Green Marketing Specialist: Ian Dhillon PA-C Relief Fur Ironer: Anaid Moran RN Relief Scrub: Marquise Allen Scrub Person: Bren Domínguez Resident Assisting: Placido Mckeon MD COMPLICATIONS None ESTIMATED BLOOD LOSS 50 ml SPECIMENS Cytology specimen sent ID Type Source Tests Collected by Time Destination 1 : left breast reduction, short stitch superior, long stitch lateral, double stitch anterior Permanent SURG PATH SURG PATH REQUEST Jose Francisco Coughlin MD 05/27/2022 0932 2 : Right chest wall lesion Permanent SURG PATH SURG PATH REQUEST Jose Francisco Coughlin MD 05/27/2022 0949 This procedure was not performed to treat primary cutaneous melanoma through wide local excision Placido Mckeon MD May 27, 2022 10:57 AM documented in this encounter [facility] 05-27-2022 Note Formatting of this n ote might be different from the original. Discharge instructions and prescriptions discussed with patient and her . All questions answered. Patient given dressing and drain supplies. [facility] 05-27-2022 Nurse Surgical operation note 1225: [facility] via gurney. Vital signs taken and stable. Patient given drink and snacks. Family called to bedside. Patient assessed. [facility] 05-27-2022 Nurse Note 1225: [facility] via gurney. Vital signs taken and stable. Patient given drink and snacks. Family called to bedside. Patient assessed. Report to CONSERVATION TECHNICIAN Right breast reduction tissue=24g 0626: Patient reports last chemo and radiation treatments in 2019. Patient denies history of seizures or stroke. Patient denies history of metal or implants in body. documented in this encounter [facility] 05-27-2022 Note Formatting of this n ote might be different from the original. Operative Report DATE PERFORMED: 05/27/2022 PREOPERATIVE DIAGNOSES: History of right breast cancer, status post right mastectomy and autologous DIP flap reconstruction. POSTOPERATIVE DIAGNOSES: History of right breast cancer, status post right mastectomy and autologous DIP flap reconstruction. OPERATIVE PROCEDURES PERFORMED: 1. Left breast balancing reduction mammoplasty. 2. Revision of right breast with excision of DIP flap dermal remnant and skin along the IM crease (8 x 1.5 cm). 3. Fat grafting to port site, left chest and hollowing to the superior medial pole right breast. 4. Excision of dog-ear left flank (7 x 1.5 cm). 5. [place] of fat and reduction of bilateral flank dog-ears with Circlezon system aspiration needles and 10 cc syringes. 6. Excision of mole, right breast (mole size was approximately 0.8 mm in diameter. Excision was 1.5 x 0.8 mm skin ellipse). SURGEON(S): Jose Francisco Coughlin MD. ASSISTANTS: Placido Mckeon MD and Ian Dhillon PA-C. ESTIMATED BLOOD LOSS: For procedure was approximately 100 cc. COMPLICATIONS: None. DISPOSITION: Stable to recovery room. DRAINS: One 10-Martiniquais Jose drain to each breast. SPECIMEN: Was tissue from left breast with short stitch marking superior long stitch marking lateral and double stitch marking anterior margins. ANESTHESIA: General anesthetic endotracheal tube. PREAMBLE: Ms. Betancur is a delightful 62-year-old woman with a history of right breast cancer who underwent a right mastectomy and DIP flap right breast reconstruction. The patient's postop course was complicated by hematoma that was evacuated. Since then, she has done well. She now presents with some breast asymmetry. The left breast being slightly larger and more ptotic than the right, as well as some hollowing to the superomedial aspect of the right breast and some volume loss under the port site in the left breast as well as band of tissue causing a depression across the upper part of the right breast. The patient also had a compound mole on the upper right breast that she desired to have removed. 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 There was excess skin and bilaterally there was excess volume. The risks and benefits of all the above-mentioned procedures were discussed in great detail with the patient who understood and wished to proceed. OPERATIVE PROCEDURE IN DETAIL: The patient was taken to the operating room, placed on the operating room table in supine position and was prepped and draped in usual fashion for this procedure after undergoing general anesthetic and endotracheal intubation. An appropriate surgical time-out was performed and the patient had been marked in the upright standing position. We began the operation by placing a stab incision in the prior flank incisions and through this, using the Nunez needle aspiration system and 10 cc syringes harvested approximately 20-30 cc of fat from each of the flanks. Following this, the fat was transferred into the centrifuge and spun for 3 minutes. The liquid portion was then discarded as was the bloody portion and the injectable fat was transferred into 3 cc syringes for later use. On the left-hand side, we excised the excess skin as outlined above in a full-thickness fashion. Careful hemostasis was achieved. This was irrigated with copious amounts of normal saline and a layered closure was then accomplished with 3-0 Vicryl sutures for the deep dermal interrupted closure followed by an intradermal running 4-0 Monocryl skin closure. A single stab incision on the right-hand side was closed with a simple 5-0 plain gut suture. Next, we turned our attention to the right breast. Here the superior mastectomy skin incision was reopened and the mastectomy skin flap was re-elevated off the underlying DIP flap. We noted that there was some residual dermis on the JAY JAY flap that was likely part of the cause of some of the band like depression across the upper right breast and therefore the dermis was entirely removed. We also noted that there was some excess volume in the infraclavicular region that created almost a double bubble appearance therefore some of that the volume of the flap in the upper outer quadrant was resected entirely. Any scar tissue in this area was removed, which softened the entire upper pole of the right breast significantly. We then utilized the Nunez needle injection system and 3 cc syringes to inject some fat in a wyatt-cross pattern throughout the upper superior medial pole of the right breast, correcting the relative volume deficit and depression in this area with approximately 10-19 cc of fat, which was injected in a wyatt-cross pattern in multiple levels injecting never more than 0.5 cc of fat and on withdrawal of the needle only. Once we were satisfied with the correction, the right breast was irrigated with copious amounts of normal saline. Careful hemostasis was achieved. A 10-Martiniquais Jose drain was inserted and the incision was then closed in a layered fashion using 3-0 Vicryl for the deep dermal interrupted closure and a 4-0 Monocryl intradermal running skin closure. Along the right inframammary crease, an ellipse of skin was excised that was excessive in this area and gave a small overhang over the inframammary crease with the above- mentioned dimensions. This was excised in a full-thickness fashion. Careful hemostasis was achieved. This was irrigated as well and closed in a layered fashion using 3-0 Vicryl and 4-0 Monocryl as outlined above. We next turned our attention to the left breast. Here a Fair pattern reduction pattern had been outlined with the patient upright standing position, and we de-epithelialized the inferior and periareolar region on the left breast and then elevated the superolateral, superomedial breast flaps at a thickness approximately twice as thick as a normal mastectomy skin flap. The undermining was performed only far enough to transpose the flaps comfortably without any undue tension. We removed approximately 30 g of tissue from the upper central pole of the left breast to better match the right breast overall shape and volume. This tissue was marked with a short stitch marking the superior edge, long stitch the lateral and double stitch the anterior portion of the specimen. The breast was then irrigated with copious amounts of normal saline. Careful hemostasis was achieved and a 10-Martiniquais Jose drain was inserted here as well. We then closed the ends of the breast with the layered fashion using 3-0 Vicryl for the deep dermal interrupted closure followed by an intradermal running 3-0 Monocryl skin closure. Of note, the areola had been developed using a 45 mm cookie cutter and was inset into a 42 mm skin opening in its new location along the breast meridian. The inset was also performed using interrupted 3-0 Vicryl sutures and intradermal running 4 Monocryl skin closure. Ultimately, the incisions were dressed with Xeroform, ABD pads, and the patient was placed in a surgical bra as well as an abdominal binder. ESTIMATED BLOOD LOSS: For the entire procedure was around 100 cc. No complications were encountered. The patient tolerated the procedure well and was then returned to recovery room in stable condition following extubation in the operating room theater. Please note that all sponge, needle, and instrument counts were correct at the close of the procedure. Dictated By: MD Jose Francisco Waite MD ATTENDING TACOS/Oanh JOB: [id number] DOC: [id number] [facility] 05[facility]27[facility]22 Hospital Discharg e instructions Placido Mckeon MD - 05/27/2022 11:00 AM EDT Home Care after Same-Day Breast Surgery: The following instructions will help you care for yourself, or be cared for upon your return home today. These are guidelines for your care right after surgery only. Diet: Drink plenty of liquids and eat light meals today. Start your regular diet tomorrow It is common to have constipation or feel bloated with anesthesia and narcotic pain medicine. You may use any over the counter medicines to relieve your constipation. Jose Francisco Coughlin MD recommends prunes, prune juice, or milk of magnesia for constipation. Activity: No vigorous activity or lifting more than 5 pounds for 2 weeks. Keep elbows below shoulder level and avoid cotton puller shirts. May resume driving in 24 hours if you are not drowsy or taking narcotics No arm swing sports for 6 weeks. It is important to remain active. We encourage walking and getting out of the home. Wound Care and Hygiene: Your incision is covered with Xeroform and gauze dressing. Keep dry at all times. DO NOT REMOVE, SHOWER, OR GET WET UNTIL YOU SEE THE DOCTOR AT YOUR FOLLOW UP APPOINTMENT. Avoid activities where the breast would be submerged underwater (ie: swimming, tub bathing) for one month after surgery. Wear the supportive bra (the wireless soft bra that is placed on you at the time of your surgery) continuously, 24 hours a day, for the first week following surgery. You may remove supportive bra when showering or when changing your dressing. Thereafter, continue to wear the supportive bra during the day for the first month following surgery. If the supportive bra given to you does not fit well or is causing some problem, please contact Jose Francisco Coughlin MD office. Anesthesia Precautions & Expectations: After anesthesia, rest for [address], drink alcoholic beverages or make any important decisions during this time. General anesthesia may cause a sore throat, jaw discomfort or muscle aches. These symptoms can last for one or two days. What to Expect after Surgery: Some drainage, bruising and swelling from the incision. Mild to moderate discomfort and tenderness. Call your Doctor for: Pain not relieved with medicines. Increased amounts of redness, swelling, bleeding or any drainage (pus) from the incision. Temperature above 101 degrees. Observe and attend your follow-up appointment with Jose Francisco Coughlin MD. If you have questions or problems, call your doctor's office. Or the Appointment Desk at If you are unable to reach your doctor call: The hospital draw press operator at . Ask for the resident music professionals for your doctor. - [facility] The following attachments cannot be sent through Care Everywhere.Breast Reconstruction Drain Care ([facility] [place]) ([place]i)Surgical Drain Care ([place]i)documented in this encounter [facility] 05-27-2022 Note Formatting of this n ote is different from the original. Doreen Betancur ([id number]) PRE OPERATIVE DIAGNOSIS Personal history of malignant neoplasm of breast [Z85.3] POST OPERATIVE DIAGNOSIS Post-Op Diagnosis Codes: * Personal history of malignant neoplasm of breast [Z85.3] PROCEDURE PERFORMED Procedure(s) (LRB): balancing reduction mastopexy (Left) REVISION BREAST RECONSTRUCTION (Right) Dog ear resections bilateral flanks (Bilateral) GRAFT AUTOLOGOUS FAT TRUNK BREAST (Bilateral) EXCISION LESION SKIN TRUNK (Right) PRIMARY CLOSURE Yes INTRAOPERATIVE FINDINGS No significant abnormalities SURGEON Surgeon(s) and Role: * Jose Francisco Coughlin MD - Primary ANESTHESIOLOGIST Anesthesiologist: Franca Bautista MD SURGICAL STAFF Fur Ironer: Annie Lorenzo RN Physician Green Marketing Specialist: Ian Dhillon PA-C Relief Fur Ironer: Anaid Moran RN Relief Scrub: Marquise Allen Scrub Person: Bren Domínguez Resident Assisting: Placido Mckeon MD COMPLICATIONS None ESTIMATED BLOOD LOSS 50 ml SPECIMENS Cytology specimen sent ID Type Source Tests Collected by Time Destination 1 : left breast reduction, short stitch superior, long stitch lateral, double stitch anterior Permanent SURG PATH SURG PATH REQUEST Jose Francisco Coughlin MD 05/27/2022 0932 2 : Right chest wall lesion Permanent SURG PATH SURG PATH REQUEST Jose Francisco Coughlin MD 05/27/2022 0949 This procedure was not performed to treat primary cutaneous melanoma through wide local excision Placido Mckeon MD May 27, 2022 10:57 AM [facility] 05-27-2022 Nurse Surgical operation note Report to CONSERVATION TECHNICIAN [facility] 05-27-2022 Nurse Surgical operation note Right breast reduction tissue=24g [facility] 05-27-2022 Attending History and physical note I have personally seen and evaluated Doreen Betancur today. The patient reports no changes in their health status since Carlotta Randle last saw them on 05/05/2022. I have reviewed their current chart, including medications, allergies, and laboratory results. The planned procedure(s) is (are): BALANCING REDUCTION MASTOPEXY LEFT, REVISION RIGHT BREAST RECONSTRUCTION, DOG EAR RESECTIONS BILATERAL FLANKS. The patient remains appropriate for this today. The associated risks, benefits, alternatives, and complications, have been reviewed with the patient and they wish to proceed. Ian Dhillon PA-C, 05/27/2022, 6:48 AM. Source Note - Carlotta Randle PA-C - 05/05/2022 11:45 AM EDT [facility] Plastic and Reconstructive Surgery H&P Patient seen and evaluated by MELITA and Dr. Coughlin HPI: Ms. Betancur is a 62 y.o. female. H/o right breast cancer S/p right lumpectomy, chemotherapy, and XRT (2005) H/o right breast cancer recurrence S/p right mastectomy, 10/11/2019 S/p chemotherapy S/p delayed right breast reconstruction with free ms-TRAM flap and excision of chronic seroma cavity right chest wall (Ced), 08/03/2021 S/p I&D of abdominal wall hematoma 09/17/21 They present preoperatively for planned: BALANCING REDUCTION MASTOPEXY LEFT, REVISION RIGHT BREAST RECONSTRUCTION, DOG EAR RESECTIONS BILATERAL FLANKS Scheduled for: 05/27/2022 Since I last saw the patient, the following changes in health status/surgical plan are noted: none. Review of Systems: No F/C. No CP/SOB. Past Medical History: Diagnosis Date Anxiety Breast cancer right side in 2005 and recurrent 2019 High blood pressure High cholesterol History of chemotherapy History of radiation exposure History of radiation therapy 2005, right breast Soft tissue radionecrosis Past Surgical History: Procedure Laterality Date I&D POSTOPERATIVE WOUND Bilateral 09/17/2021 Laterality: Bilateral; Surgeon: Jose Francisco Coughlin MD; Location: [facility] MA[facility] OR RECONSTRUCTION BREAST FREE FLAP Right 08/13/2021 Laterality: Right; Surgeon: Jose Francisco Coughlin MD; Location: [facility] MAIN OR OOPHORECTOMY LAPAROSCOPIC 2013 BREAST BIOPSY Right 2006 BREAST LUMPECTOMY SECTION x4 DILATION AND CURETTAGE x2 MASTECTOMY COMPLETE Right TUBAL LIGATION Allergies Allergen Reactions Prednisone Palpitations Macrobid [Nitrofurantoin] Hot, cold, achey Penicillins Unknown reaction as child, intolerance Wound Dressing Adhesive Erythema after ribbon tape, intolerance Outpatient Medications Prior to Visit Medication Sig Dispense Refill B Complex Vitamins (VITAMIN B COMPLEX 100 IJ) Take by mouth daily every morning. cholecalciferol 10 MCG (400 UNIT) tablet Take 400 Units by mouth daily every morning. clonazePAM 0.5 MG tablet Take 0.5 mg by mouth 2 times daily as needed. estradiol (Vagifem) 10 MCG vaginal tablet Insert 1 tablet vaginally daily. Use daily for 2-4 weeks, then 2-3 times weekly. 30 tablet 6 ezetimibe 10 MG tablet Take 10 mg by mouth daily. Letrozole 2.5 MG tablet Take 2.5 mg by mouth daily. Probiotic Product (PROBIOTIC-10 PO) Take by mouth. sertraline 100 MG tablet Take 150 mg by mouth daily every morning. 150 mg daily acetaminophen 325 MG tablet Take 2 tablets by mouth every 4 hours as needed for mild pain for up to 7 days. 40 tablet 0 diphenhydrAMINE 25 MG tablet Take 1 tablet by mouth every 6 hours as needed for itching for up to 7 days. (Patient not taking: Reported on 08/23/2021) 20 tablet 0 exemestane 25 MG tablet Take 25 mg by mouth at bedtime. gabapentin 100 MG capsule Take 1 capsule by mouth 3 times daily for 7 days. (Patient not taking: Reported on 08/23/2021) 21 capsule 0 ibuprofen 400 MG tablet Take 1 tablet by mouth every 6 hours as needed for mild pain for up to 7 days. 40 tablet 0 lisinopril 10 MG tablet Take 10 mg by mouth daily every morning. (Patient not taking: No sig reported) metoprolol 25 MG tab regular release Take 25 mg by mouth as needed. (Patient not taking: Reported on 11/11/2021) oxyCODONE 5 MG tablet Take 1 tablet by mouth every 6 hours as needed for up to 4 days. 12 tablet 0 traZODone 50 MG tablet Take 50 mg by mouth At bedtime. (Patient not taking: No sig reported) No facility-administered medications prior to visit. Social History Tobacco Use Smoking status: Never Smokeless tobacco: Never Substance Use Topics Alcohol use: Yes Comment: social Drug use: Never Family History Problem Relation Age of Onset Myocardial Infarction Father Asthma Father Skin Cancer Sister melanoma Breast Cancer Maternal Aunt 42 Ovarian Cancer Neg Hx Uterine Cancer Neg Hx Anesth Problems Neg Hx Negative for problems with anesthesia, surgery, bleeding, or wound healing problems. 1 point each: [] Age 41-60 [] minor surgery planned [] history of prior major surgery (<1 month) [] varicose veins [] history of IBD [] current swollen legs [x] obesity (BMI>25) [] acute NC [] CHF <1 month [] sepsis (<1 month) [] Lung disease including PNA (<1 month) [] Abnormal pulmonary fxn (COPD) [] Currently on bedrest [] OCP or HRT [] or (<1 month) [] Hx unexplained stillborn, spontaneous (>3), premature with toxemia or growth restricted 2 points each: [x] Age 60-74 [] Arthroscopic surgery [x] Malignancy hx [x] Major surgery planned (>45 min) [] Laparoscopic surgery (>45 min) [] Patient confined to bed (>72 hrs) []Immobilizing plaster cast [] Central Venous Access 3 points each: [] Age >75 [] Hx DVT/PE [] Family hx of thrombosis [] Factor V Leiden [] Prothrombin [id number] [] Elevated serum homocysteine [] Positive Lupus anticoagulant [] Elevated anticardiolipin antibodies [] HIT [] Other thrombophilia 5 points each: [] Elective major lower arthroplasty [] Hip, pelvis, or leg fx [] stroke (<1 month) [] Multiple Trauma (<1 month) [] Acute spinal cord injury (<1 month) Total Score: 7 Strongly consider chemoprophylaxis if 7 or greater. Physical Examination oral temperature is 98.4 F (36.9 C). Her blood pressure is 145/89 and her pulse is 71. Her respiration is 16 and oxygen saturation is 100%. Estimated body mass index is 28.6 kg/m as calculated from the following: Height as of 09/30/21: 1.626 m (5' 4). Weight as of 02/17/22: 75.6 kg (166 lb 9.6 oz). General: NAD, well appearing HEENT: NC/AT, CN 2-12 grossly intact, V1-V3 grossly intact, no LAD/lesions Chest: unlabored breathing on room air RIGHT BREAST: breast absent. Flap viable. No concerns for fluid collection or infection. Excess flap skin along IMF. Upper pole hollowing. LEFT BREAST: slightly larger and more ptotic. concavity of previous port site. ABDOMEN: Incision CDI. Healing well. No fluid collections. Dog ears to bilateral incision ends Assessment, Plan I reviewed the planned procedure(s) with the patient as listed above. For each procedure, I reviewed the incisions/scars, duration, recovery time, postoperative restrictions, and follow-up. When applicable, I discussed hospitalization, dressing changes, drains, and donor site morbidity. Risks that were discussed include surgical (bleeding, infection, hematoma, seroma, wound breakdown, need for further surgery, pain, numbness, weakness, asymmetry, cosmetic deformity, injury to structures) and medical (heart attack, pneumonia, DVT/PE, ). When applicable, I discussed partial/complete graft or flap loss. All of the patient's questions/concerns were addressed. The patient understands all of these things, wishes to proceed, and signed the consent form. Patient hesitant about surgery at this time due to the post op restrictions being around the holidays. She and her decorate a lot. She will call us if she would like to reschedule. Carlotta Randle PA-C [facility] Plastic and Reconstructive Surgery [facility] Work Phone: 05-27-2022 History and physical note I have personally seen and evaluated Doreen Betancur today. The patient reports no changes in their health status since Carlotta Randle last saw them on 05/05/2022. I have reviewed their current chart, including medications, allergies, and laboratory results. The planned procedure(s) is (are): BALANCING REDUCTION MASTOPEXY LEFT, REVISION RIGHT BREAST RECONSTRUCTION, DOG EAR RESECTIONS BILATERAL FLANKS. The patient remains appropriate for this today. The associated risks, benefits, alternatives, and complications, have been reviewed with the patient and they wish to proceed. Ian Dhillon PA-C, 05/27/2022, 6:48 AM. Source Note - Carlotta Randle PA-C - 05/05/2022 11:45 AM EDT [facility] Plastic and Reconstructive Surgery H&P Patient seen and evaluated by MELITA and Dr. Coughlin HPI: Ms. Betancur is a 62 y.o. female. H/o right breast cancer S/p right lumpectomy, chemotherapy, and XRT (2005) H/o right breast cancer recurrence S/p right mastectomy, 10/11/2019 S/p chemotherapy S/p delayed right breast reconstruction with free ms-TRAM flap and excision of chronic seroma cavity right chest wall (Ced), 08/03/2021 S/p I&D of abdominal wall hematoma 09/17/21 They present preoperatively for planned: BALANCING REDUCTION MASTOPEXY LEFT, REVISION RIGHT BREAST RECONSTRUCTION, DOG EAR RESECTIONS BILATERAL FLANKS Scheduled for: 05/27/2022 Since I last saw the patient, the following changes in health status/surgical plan are noted: none. Review of Systems: No F/C. No CP/SOB. Past Medical History: Diagnosis Date Anxiety Breast cancer right side in 2005 and recurrent 2019 High blood pressure High cholesterol History of chemotherapy History of radiation exposure History of radiation therapy 2005, right breast Soft tissue radionecrosis Past Surgical History: Procedure Laterality Date I&D POSTOPERATIVE WOUND Bilateral 09/17/2021 Laterality: Bilateral; Surgeon: Jose Francisco Coughlin MD; [facility] RECONSTRUCTION BREAST FREE FLAP Right 08/13/2021 Laterality: Right; Surgeon: Jose Francisco Coughlin MD; [facility] OR OOPHORECTOMY LAPAROSCOPIC 2013 BREAST BIOPSY Right 2006 BREAST LUMPECTOMY SECTION x4 DILATION AND CURETTAGE x2 MASTECTOMY COMPLETE Right TUBAL LIGATION Allergies Allergen Reactions Prednisone Palpitations Macrobid [Nitrofurantoin] Hot, cold, achey Penicillins Unknown reaction as child, intolerance Wound Dressing Adhesive Erythema after ribbon tape, intolerance Outpatient Medications Prior to Visit Medication Sig Dispense Refill B Complex Vitamins (VITAMIN B COMPLEX 100 IJ) Take by mouth daily every morning. cholecalciferol 10 MCG (400 UNIT) tablet Take 400 Units by mouth daily every morning. clonazePAM 0.5 MG tablet Take 0.5 mg by mouth 2 times daily as needed. estradiol (Vagifem) 10 MCG vaginal tablet Insert 1 tablet vaginally daily. Use daily for 2-4 weeks, then 2-3 times weekly. 30 tablet 6 ezetimibe 10 MG tablet Take 10 mg by mouth daily. Letrozole 2.5 MG tablet Take 2.5 mg by mouth daily. Probiotic Product (PROBIOTIC-10 PO) Take by mouth. sertraline 100 MG tablet Take 150 mg by mouth daily every morning. 150 mg daily acetaminophen 325 MG tablet Take 2 tablets by mouth every 4 hours as needed for mild pain for up to 7 days. 40 tablet 0 diphenhydrAMINE 25 MG tablet Take 1 tablet by mouth every 6 hours as needed for itching for up to 7 days. (Patient not taking: Reported on 08/23/2021) 20 tablet 0 exemestane 25 MG tablet Take 25 mg by mouth at bedtime. gabapentin 100 MG capsule Take 1 capsule by mouth 3 times daily for 7 days. (Patient not taking: Reported on 08/23/2021) 21 capsule 0 ibuprofen 400 MG tablet Take 1 tablet by mouth every 6 hours as needed for mild pain for up to 7 days. 40 tablet 0 lisinopril 10 MG tablet Take 10 mg by mouth daily every morning. (Patient not taking: No sig reported) metoprolol 25 MG tab regular release Take 25 mg by mouth as needed. (Patient not taking: Reported on 11/11/2021) oxyCODONE 5 MG tablet Take 1 tablet by mouth every 6 hours as needed for up to 4 days. 12 tablet 0 traZODone 50 MG tablet Take 50 mg by mouth At bedtime. (Patient not taking: No sig reported) No facility-administered medications prior to visit. Social History Tobacco Use Smoking status: Never Smokeless tobacco: Never Substance Use Topics Alcohol use: Yes Comment: social Drug use: Never Family History Problem Relation Age of Onset Myocardial Infarction Father Asthma Father Skin Cancer Sister melanoma Breast Cancer Maternal Aunt 42 Ovarian Cancer Neg Hx Uterine Cancer Neg Hx Anesth Problems Neg Hx Negative for problems with anesthesia, surgery, bleeding, or wound healing problems. 1 point each: [] Age 41-60 [] minor surgery planned [] history of prior major surgery (<1 month) [] varicose veins [] history of IBD [] current swollen legs [x] obesity (BMI>25) [] acute NC [] CHF <1 month [] sepsis (<1 month) [] Lung disease including PNA (<1 month) [] Abnormal pulmonary fxn (COPD) [] Currently on bedrest [] OCP or HRT [] or (<1 month) [] Hx unexplained stillborn, spontaneous (>3), premature with toxemia or growth restricted 2 points each: [x] Age 60-74 [] Arthroscopic surgery [x] Malignancy hx [x] Major surgery planned (>45 min) [] Laparoscopic surgery (>45 min) [] Patient confined to bed (>72 hrs) []Immobilizing plaster cast [] Central Venous Access 3 points each: [] Age >75 [] Hx DVT/PE [] Family hx of thrombosis [] Factor V Leiden [] Prothrombin [id number] [] Elevated serum homocysteine [] Positive Lupus anticoagulant [] Elevated anticardiolipin antibodies [] HIT [] Other thrombophilia 5 points each: [] Elective major lower arthroplasty [] Hip, pelvis, or leg fx [] stroke (<1 month) [] Multiple Trauma (<1 month) [] Acute spinal cord injury (<1 month) Total Score: 7 Strongly consider chemoprophylaxis if 7 or greater. Physical Examination oral temperature is 98.4 F (36.9 C). Her blood pressure is 145/89 and her pulse is 71. Her respiration is 16 and oxygen saturation is 100%. Estimated body mass index is 28.6 kg/m as calculated from the following: Height as of 09/30/21: 1.626 m (5' 4). Weight as of 02/17/22: 75.6 kg (166 lb 9.6 oz). General: NAD, well appearing HEENT: NC/AT, CN 2-12 grossly intact, V1-V3 grossly intact, no LAD/lesions Chest: unlabored breathing on room air RIGHT BREAST: breast absent. Flap viable. No concerns for fluid collection or infection. Excess flap skin along IMF. Upper pole hollowing. LEFT BREAST: slightly larger and more ptotic. concavity of previous port site. ABDOMEN: Incision CDI. Healing well. No fluid collections. Dog ears to bilateral incision ends Assessment, Plan I reviewed the planned procedure(s) with the patient as listed above. For each procedure, I reviewed the incisions/scars, duration, recovery time, postoperative restrictions, and follow-up. When applicable, I discussed hospitalization, dressing changes, drains, and donor site morbidity. Risks that were discussed include surgical (bleeding, infection, hematoma, seroma, wound breakdown, need for further surgery, pain, numbness, weakness, asymmetry, cosmetic deformity, injury to structures) and medical (heart attack, pneumonia, DVT/PE, ). When applicable, I discussed partial/complete graft or flap loss. All of the patient's questions/concerns were addressed. The patient understands all of these things, wishes to proceed, and signed the consent form. Patient hesitant about surgery at this time due to the post op restrictions being around the holidays. She and her decorate a lot. She will call us if she would like to reschedule. Carlotta Randle PA-C [facility] Plastic and Reconstructive Surgery documented in this encounter [facility] 05-27-2022 Nurse Surgical operation note 0626: Patient reports last chemo and radiation treatments in 2019. Patient denies history of seizures or stroke. Patient denies history of metal or implants in body. [facility] 05[facility]23[facility]22 History of Presen t illness Narrative Chief Complaint Patient presents with: Established Patient HPI: Doreen Betancur is a 62 year old female who presents here today for follow up breast cancer. Per Dr. 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 Status post 6 doses of paclitaxel given on an every-2- week basis with growth factor support along with trastuzumab (CALGB 60809). Radiation therapy was completed in 11/2005. She had been on tamoxifen since the second week of 12/2005. Finished trastuzumab in June 2006. Completed 5 years' worth of tamoxifen fall 2010. Received injection Zoladex with plan for possible AI therapy, but had significant QUINTANILLA. Decision at that point to hold therapy. Took nearly the whole month for QUINTANILLA to gradually resolve. Underwent lap oophorectomy 06/2013. She was running a weed eater in early March 2019 when a rock was thrown up hitting her in the lateral right breast right along the scar from previous surgery. She developed a tender lump in that area. She underwent diagnostic mammogram and ultrasound which suggested hematoma. She had no skin discoloration. Follow-up breast ultrasound suggested stable findings consistent with hematoma. Repeat ultrasound of the right breast on 08/24/2019 revealed a 1.8 x 2.4 x 1.2 cm lobulated mass in the right breast that was suspicious for malignancy. Biopsy was recommended. Biopsy done 09/02/2019. Pathology: MICROSCOPIC DIAGNOSIS Right breast, ultrasound-guided needle core biopsy: Invasive ductal carcinoma. Nuclear grade - 3/3 Maximal length - 13 mm Other findings - tumor necrosis Reference is made to the patient s previous right breast lumpectomy from 2004 ([id number]) in which invasive, grade 3/3, poorly differentiated ductal carcinoma was identified. ER (clone [id number]) 4% dim ID (clone 16/1E2) 0% Her-2Neu (clone [id number]) 0 MRI Breast 09/19/2019: RIGHT BREAST: The breast tissue is scattered fibroglandular densities with no background enhancement. There is a 2.5 cm abnormal enhancing mass in the superior outer aspect of the right breast located approximately 6 cm from the nipple. This does correlate to the area that was biopsied and shown to represent a malignancy. No other abnormal enhancing or abnormal morphologically appearing masses are seen in the right breast. LEFT BREAST: The breast tissue is heterogeneously dense with no background enhancement. There are no abnormal enhancing masses or areas of non-mass enhancement in the left breast. There are no enlarged or abnormal lymph nodes. There is no abnormality in the visualized regions of the chest or liver. IMPRESSION: There is a known malignancy in the right breast. Surgical consultation is recommended as well as radiation oncology and medical oncology consultation. Short-term six-month follow-up mammogram is recommended if the patient and the surgeon opt to do a lumpectomy. Underwent right modified radical mastectomy along with right axillary lymph node dissection on 10/11/2019. Pathology: FROZEN SECTION DIAGNOSIS A. Right axillary sentinel lymph nodes, biopsy: Two out of two lymph nodes negative for carcinoma. MICROSCOPIC DIAGNOSIS A. Right axillary sentinel lymph nodes, biopsy: Three out of three lymph nodes, negative for metastatic carcinoma. B. Right breast, mastectomy: Invasive poorly differentiated ductal carcinoma. See cancer check list below. COMMENT INVASIVE BREAST CANCER SUMMARY: Procedure: Mastectomy Specimen: Type: Total breast Size: 17 x 15 x 5 cm Laterality: Right breast Invasive Tumor: Size of tumor: 2.5 x 2 x 2 cm Focality: Single focus of invasive tumor Histologic type: Invasive ductal carcinoma. Histologic grade ([place] grade): Glandular/tubular differentiation score: 3 Nuclear pleomorphism score: 3 Mitotic count score: 3 Overall grade: 3 (score of 9/9) Lymph-vascular invasion: Not identified Ductal Carcinoma In Situ: Not identified Lobular Carcinoma In Situ: Not identified Tumor extension: Skin: Free of carcinoma Nipple: Free of carcinoma Skeletal muscle: Free of carcinoma Margins Involved by Invasive Carcinoma: None Distance from closest margin: 1.5 mm from superior margin Margins Involved by In Situ Carcinoma: Not applicable Lymph Nodes: Number of sentinel lymph nodes examined: 3 Total number of lymph nodes examined: 10 One non-sentinel lymph node with macrometastatic carcinoma (2.1 cm in greatest dimension). See specimen A for sentinel lymph nodes. Microcalcifications: Not identified Treatment Effect: Unknown Additional Pathologic Findings: Extensive tumor necrosis Ancillary Studies: Previously performed on same tumor ([id number]) ER: positive (4%, dim) ID: negative (0%) Jxy4bzw: negative (0) Clinical History: Mass of breast Pathologic Stage: pT2 N1a Mx Previous therapy: 1) AC followed by T 2) Radiation at [facility]. Current therapy: Essence Began aromasin in 2019. Stopped December 2021 d/t hand pain/stiffness. Pt. s/p R JAY JAY 2021 complicated by abd hematoma-I&D 09/17/21. Surgery done at [facility]. Pt. has surgery scheduled May.272021 with plastics ([facility]) No new concerns today. Pt. has surgery scheduled May.272021 with plastics ([facility])-L mastopexy, R revision. Appetite:Good. Energy level:Pretty good. Denies fevers or recent illness. Resp:denies cough or sob, +seasonal allergies Cardiac:denies chest pain/palpitations GI:denies abd pain, n/v, moving bowels regularly :denies dysuria/hematuria Extrem:denies pain, hand stiffness/pain resolved when stopped aromasin Endo:+hot flashes Still there. 2 /day. Intensity improved. Will occur at night. Neuro:neuropathy resolved to toes/feet Skin:denies rashes/lesions Heme:denies bleeding The ROS is otherwise negative. Past medical history, appointments, medications, allergies reviewed. No changes. EXAM: BP 148/75 Pulse 82 Temp 36.9 C (98.5 F) (Temporal) Wt 78.5 kg (173 lb) LMP 08/10/2012 BMI 29.18 kg/m APPEARANCE Well appearing, alert, in no acute distress, well-hydrated, well nourished. HEART RRR with normal S1 and S2, no murmurs LUNG clear to auscultation BREAST FEMALE R recon JAY JAY, no mass/nodule, L no mass/nodule LYMPH NODES No cervical lymphadenopathy, No supraclavicular lymphadenopathy, and No axillary lymphadenopathy. ABDOMEN bowel sounds normoactive, soft, non-tender, non-distended EXTREMITIES No edema NEURO Awake, alert and oriented x 3, Normal gait, and No involuntary motions. SKIN Skin color, texture, turgor normal, no suspicious rashes or lesions ASSESSMENT/PLAN: 1. Malignant neoplasm of upper-outer quadrant of right breast in female, estrogen receptor positive (HCC) - ICD9: 174.4, V86.0, ICD10: C50.411, Z17.0 Originally diagnosed with a T1c N0 MX, ER+; 50%, ID-<5% and HER-2 overexpressed (FISH average gene copy #13.2 HER-2 to CEP 17 ratio 5.8) infiltrating ductal carcinoma of the right breast. Received 6 cycles of paclitaxel even on an every two-week basis along with growth factor support (CALGB 29753) and trastuzumab. New pT2 pN1a ER 4%, ID negative, HER2 negative (0 on IHC) stage IIB infiltrating ductal carcinoma the right breast. Genetic testing negative. - No concerning findings on exam. - Tolerated aromasin poorly d/t hand stiffness. - Tolerating femara well overall. - Continue femara. - L mammogram due February 2023. - Follow up in 6 months. - Pt. aware to call office with any questions/concerns. The patient indicates understanding of these issues and agrees with the plan. All documentation from previous visit of 11/20/21-Dr. Lopez/myself was copied and pasted, documentation has been reviewed and edited as necessary for today's visit. Becca Magana APRN.SYL documented in this encounter [facility] 05-12-2022 Miscellaneous Notes Caridad--03/21/22 Nov--06/23/22 Last refill--09/02/21 90 with 1 refill Last labs--03/21/22 . Caridad--03/21/22 Nov--06/23/22 Last refill--09/02/21 90 with 1 refill Last labs--03/21/22 documented in this encounter [facility] 03-21-2022 Instructions Ham Martinez DO - 03/21/2022 9:13 AM EDT Magnesium 500 mg in the evening documented in this encounter [facility] 03-21-2022 History of Presen t illness Narrative CC: Doreen Betancur is a 62 year old female who presents to the office for follow up HPI: Seen in office last on 12/09/21 Overall she is slowly improving from her recent breast free flap reconstructive surgery that she had on 08/13/[address] [place] [address] Coughlin plastic surgeon. Her Blood pressure volatility after surgery has resolved. It has been stable recently She is regaining her energy - She is eating well- appetite has improved. Vitamin d deficiency, taking her supplements. Had recent labs completed, taking supplements. Admits that she has been doing more out and around the house with mowing and using tractor- hasn't been using arms as much yet. Anxiety, seems to be stable. Restless legs, asking to try a medication at this time. 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 Currently History of breast cancer. Last surgery on 08/13/[address] [place] [address] Coughlin plastic surgeon. Is scheduled for upcoming surgery for further repair of the area of left breast in 1-2 months by surgeon. She is looking forward to this hopefully being last breast surgery at this time. Mood, stable. Thinks the recently increased dose of Zoloft in the winter, was helping mood, but causing her decreased libido. Feels her mood is stable and wants to try a lower dose of the zoloft if able. Joint pain, muscle aches, stable. 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 No recent falls or injuries. TSH Date Value Ref Range Status 12/06/2021 3.280 0.270 - 4.200 mIU/L Final Free T4 Date Value Ref Range Status 03/18/2022 0.9 0.9 - 1.7 ng/dL Final Free T3 2.6 08/28/2020 T3 102 07/04/2021 PAST MEDICAL HISTORY Diagnosis Date Anxiety Malignant neoplasm of breast (female), unspecified site 05/2005 right breast Vitamin D deficiency PAST SURGICAL HISTORY Procedure Laterality Date BREAST RECONSTRUCTION Right DELIVERY ONLY times four COLONOSCOPY FLX DX W/COLLJ SPEC WHEN PFRMD 12/11/2014 Repeat 2024 DILATION & CURETTAGE DX&/THER NONOBSTETRIC LAPAROSCOPY W/RMVL ADNEXAL STRUCTURES 07/05/2013 Laprascopic BSO h/o breast ca LIG/TRNSXJ FLP TUBE ABDL/VAG APPR UNI/BI 1998(?) MAST MODF RAD W/AX LYMPH NOD W/WO PECT/VICKY MIN Right 10/11/2019 Dr. Arceo, [facility] PAST SURGICAL HISTORY OF 06/17/2005 lumpectomy and removal of lymph nodes PAST SURGICAL HISTORY OF 2018 Laser surgery vaginal Current Outpatient Medications Medication Sig letrozole (FEMARA) 2.5 mg tablet Take 1 tablet by mouth once daily. pramipexole (MIRAPEX) 0.5 mg tablet Take 1-2 tablets by mouth three times daily. Estradiol (VAGIFEM) 10 mcg vaginal tablet Use 10 mcg vaginally three times a week. cholecalciferol (VITAMIN D-3) 400 unit tab Take 400 Units by mouth once daily. clonazePAM (KLONOPIN) 1 mg tablet Take 1 tablet by mouth twice daily as needed for up to 30 days. sertraline (ZOLOFT) 100 mg tablet Take 1 tablet by mouth once daily. In addition to 50mg tablet, for total of 150mg daily. sertraline (ZOLOFT) 50 mg tablet Take 1 tablet by mouth once daily. In addition to 100mg tablet, for total of 150mg daily. ezetimibe (ZETIA) 10 mg tablet Take 1 tablet by mouth once daily. At supper or bedtime lisinopril (ZESTRIL, PRINIVIL) 10 mg tablet Take 1 tablet by mouth once daily. As needed for BLOOD PRESSURE >140/90 vitamin b complex capsule Take 1 capsule by mouth once daily. Lactobacillus acidophilus (PROBIOTIC ORAL) Take 1 capsule by mouth once daily. metoprolol tartrate, short acting, (LOPRESSOR) 25 mg tablet Take 1 tablet by mouth twice daily as needed (tachycardia, palpitations). traZODone (DESYREL) 50 mg tablet Take 1-2 tablets by mouth daily at bedtime. As needed for insomnia No current facility-administered medications for this visit. ALLERGIES Allergen Reactions Penicillins Intolerance Unknown reaction as a child Macrobid [Nitrofura* Hot, cold, achy Prednisone Other: See Comments Heart palpitations Adhesive Tape (Kassie* Intolerance Erythema after ribbon tape Social History Tobacco Use Smoking status: Never Smokeless tobacco: Never Vaping Use Vaping Use: Never used Substance Use Topics Alcohol use: Yes Comment: seldom Drug use: No ROS: See HPI PE: BP 120/80 Pulse 80 Temp (Src) 97.3 (Right Tympanic) Resp 16 Wt 166 lb (75.3kg) LMP 08/10/2012 Gen: A&OX3, NAD, non-toxic appearing HEENT: PERRLA, EOMs intact b/l, nares without drainage, pharynx without erythema, exudate, lesions, or drainage. Uvula midline. Neck: No LAD, no thyromegaly, no meningismus. CV: RRR, no murmur Lungs: CTA b/l, no wheezing Skin: No rashes, lesions, or wounds on exposed skin. No edema, normal pulses Well dressed, pleasant ASSESSMENT/PLAN: 1. Situational anxiety - ICD9: 300.09, ICD10: F41.8 (primary diagnosis) rx refilled, chronic, stable - CLONAZEPAM 1 MG TABLET 2. Situational insomnia - ICD9: 307.41, ICD10: F51.09 - rx refilled, chornic, stable. - CLONAZEPAM 1 MG TABLET 3. Borderline abnormal thyroid function test - ICD9: 794.5, ICD10: R94.6 Recheck thyroid labs in 2-3 months and follow up. She is not on hormone at this time and hasn't been in the past. - TSH BLD - COMP METABOLIC PANEL - T4 FREE/FREE THYROX - T3 FREE BLD 4. Dyslipidemia - ICD9: 272.4, ICD10: E78.5 - to be determined upon return of lab results - Encouraged following a low fat, low cholesterol diet. - Discussed the benefits of regular aerobic exercise and weight loss. - LIPID PANEL BASIC 5. Osteopenia of multiple sites - ICD9: 733.90, ICD10: M85.89 - Reviewed the need for Calcium and Vitamin D supplements and weight bearing exercise as tolerated - DXA-AXIAL SKELETON 6. Muscle cramp - ICD9: 729.82, ICD10: R25.2 - POTASSIUM CHLORIDE ER 10 MEQ TABLET,EXTENDED RELEASE Ham Martinez DO PDMP website checked and validated. All prescriptions have been APPROPRIATELY filled. No suspicious activity was identified. 03/24/2022 by Ham Martinez DO Return if no improvement. Follow up with Ham Martinez DO. To ER if develops chest pain, shortness of breath Discussed risks, benefits, alternatives, and potential side effects of medications. Patient/Guardian expressed understanding and agreed with the plan. See patient instructions. Ham Martinez DO [address] [place] [address] documented in this encounter [facility] 03-14-2022 Miscellaneous Notes March 14, 2022 PID: [id number] Doreen Betancur [address] [place] [address] Dear Ms. Betancur, We are pleased to inform you that the results of your recent breast imaging exam on 03/14/2022 are normal. Your mammogram demonstrates that you have dense breast tissue, which could hide abnormalities. Dense breast tissue, in and of itself, is a relatively common condition. Therefore, this information is not provided to cause undue concern; rather, it is to raise your awareness and promote discussion with your health care provider regarding the presence of dense breast tissue in addition to other risk factors. Early detection of cancer is very important. We also understand recommendations regarding breast cancer screening are controversial. Please discuss with your primary care provider which strategy is best for you and whether a mammogram is right for you. Your imaging studies and report will be kept on file at [facility] as part of your permanent medical record and are available for your continuing care. Thank you for allowing us to help in meeting your health care needs. Sincerely, Dr. Sahni Interpreting Radiologist [facility] (Normal over 40) documented in this encounter [facility] 02-17-2022 History of Presen t illness Narrative The patient was seen and evaluated by the PAC REASON FOR VISIT H/o right breast cancer S/p right lumpectomy, chemotherapy, and XRT (2005) H/o right breast cancer recurrence S/p right mastectomy, 10/11/2019 S/p chemotherapy S/p delayed right breast reconstruction with free ms-TRAM flap and excision of chronic seroma cavity right chest wall ([place]), 08/03/2021 S/p I&D of abdominal wall hematoma 09/17/21 SUBJECTIVE Doreen Betancur is a 61 y.o. who presents 5 months post-op FU after I&D of abdomen and 6 months after ms-TRAM flap. The patient notes her left [place] breast is slightly larger in volume than her right. She has noticed a possible non-dissolved suture along the right abdominal incision line. Review of systems: No fevers/chills. No wound symptoms such as redness, swelling, increasing pain, or drainage. OBJECTIVE Vitals: 02/17/22 1112 BP: 160/82 Pulse: 81 Resp: 14 Temp: 97.7 degrees F (36.5 degrees C) SpO2: 98% Weight: 75.6 kg (166 lb 9.6 oz) GENERAL: NAD, A&O RIGHT BREAST: breast absent. Flap viable. No concerns for fluid collection or infection. Excess flap skin along IMF. Upper pole hollowing. LEFT BREAST: slightly larger and more ptotic. concavity of previous port site. ABDOMEN: Incision CDI. Healing well. No fluid collections, no concerns, palpable nodularity under suture line - likely dissolving sutures. ASSESSMENT S/p washout abdominal hematoma. Discussion for surgical plan, revisions. PLAN - Discussion for breast reconstruction revision: Right reconstructed breast with IMF skin excision and fat grafting to superior pole. Left breast lift and fat grafting to previous left port site. Abdomen: excision of bilateral standing cone deformities. - Patient is happy with the plan and will schedule for May. - Follow up at pre-op A total of 15 minutes of tujo-iq-jyfe time were spent with the patient, of which >50% were spent on counseling and coordination of care. documented in this encounter [facility] 01-15-2022 Miscellaneous Notes Spoke to patient. Informed her that this nurse spoke to Becca. Per Becca's instructions, patient was instructed to hold aromasin for 3 weeks and call our office with an update on symptoms. Patient also instructed to follow-up with PCP regarding anxiety. Patient stated understanding of instructions and will call our office with an update. Carly Johnson RN Spoke to patient. Patient stated she has 5/10 constant aching pain and stiffness in her knees, legs, and arms that started 1.5 months prior to her last OV with Becca which was on 11/20/21. Patient also stated she has noticed numbness and tingling in her hands and has been dropping things. Patient stated the stiffness does seem to resolve after she gets moving in the morning. Patient stated the pain decreases with movement however it also increases if she is overly active. Patient is taking 1 Advil BID which reduces the pain down to 2/10. Patient stated she also had an increase in anxiety around the same time the pain started. Patient stated she has been taking Zoloft as directed and is taking Klonopin PRN. Patient has a panicky feeling every few days. Patient stated she sees a counselor Q3 weeks and also has found that deep breathing and saying the lords prayer to herself when she has increased anxiety, alleviates the panicky feeling. Patient had an OV with her PCP in November, this nurse advised that she follow-up with her PCP regarding anxiety management. Patient was also offered to be transferred to our vp digital marketing social media and crm which she declined at this time. Patient is asking if the Aromasin could be causing the increase in pain and stiffness as well as the increase in anxiety. Patient started Aromasin 05/2020. Patient aware Becca is out of the office until tomorrow, this nurse will call her with further instructions once this nurse speaks to Becca. Carly Johnson RN Pt called stating she has been noticing some join pain and aches in the last month. She stated her anxiety has increased in that timeframe also. She wondered if it would be from the Aromasin she has been taking for some time. documented in this encounter [facility] 12-11-2021 Miscellaneous Notes Pharmacy notified. DOREEN BETANCUR Liriano: BLJUGAGC ANDI Rx #: [id number] Need help? Call us at Outcome Approvedon December 10 PA Case: [id number], Status: Approved, Coverage Starts on: 12/10/2021 12:00:00 AM, Coverage Ends on: 12/10/2022 12:00:00 AM. DrugPramipexole Dihydrochloride 0.5MG tablets [facility] Commercial Electronic PA Form (2016 [facility]) Original Claim Info76 SUBMIT PA REQUEST TO:[email or web address] DAILY DOSE OF [id number]: For RxLocal Coupon [place] of: $11.25 submit to BIN: [id number] PCN: KYA Group: COUPON --Service provided at no cost and no switch fee to the pharmacy-- DOREEN BETANCUR Liriano: BLJUGAGC ANDI Rx #: [id number] Need help? Call us at Status Sent to Mobile Automation DrugPramipexole Dihydrochloride 0.5MG tablets FormAnthem [place] [employer]ood[employer] Electronic PA Form (2016 [facility]) Original Claim [id number] SUBMIT PA REQUEST TO:[email or web address] DAILY DOSE OF [id number]: For RxLocal Coupon [place] of: $11.25 submit to BIN: [id number] PCN: CP Group: COUPON --Service provided at no cost and no switch fee to the pharmacy-- documented in this encounter [facility] 12-10-2021 History of Presen t illness Narrative CC: Doreen Betancur is a 61 year old female who presents to the office for follow up HPI: Overall she is slowly improving from her recent breast free flap reconstructive surgery that she had on 08/13/[address] [place] [address] Coughlin plastic surgeon. Her Blood pressure volatility after surgery has resolved. It has been stable recently She is regaining her energy - She is eating well- appetite has improved. Vitamin d deficiency, taking her supplements. Had recent labs completed, taking supplements. Admits that she has been doing more out and around the house with mowing and using tractor- hasn't been using arms as much yet. Anxiety, seems to be stable. Restless legs, asking to try a medication at this time. 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 PAST MEDICAL HISTORY Diagnosis Date Anxiety Malignant neoplasm of breast (female), unspecified site 05/2005 right breast Vitamin D deficiency PAST SURGICAL HISTORY Procedure Laterality Date BREAST RECONSTRUCTION Right DELIVERY ONLY times four COLONOSCOPY FLX DX W/COLLJ SPEC WHEN PFRMD 12/11/2014 Repeat 2024 DILATION & CURETTAGE DX&/THER NONOBSTETRIC LAPAROSCOPY W/RMVL ADNEXAL STRUCTURES 07/05/2013 Laprascopic BSO h/o breast ca LIG/TRNSXJ FLP TUBE ABDL/VAG APPR UNI/BI 1998(?) MAST MODF RAD W/AX LYMPH NOD W/WO PECT/VICKY MIN Right 10/11/2019 Dr. Arceo, [facility] PAST SURGICAL HISTORY OF 06/17/2005 lumpectomy and removal of lymph nodes PAST SURGICAL HISTORY OF 2018 Laser surgery vaginal Current Outpatient Medications Medication Sig Estradiol (VAGIFEM) 10 mcg vaginal tablet Use 10 mcg vaginally three times a week. cholecalciferol (VITAMIN D-3) 400 unit tab Take 400 Units by mouth once daily. clonazePAM (KLONOPIN) 1 mg tablet Take 1 tablet by mouth twice daily as needed for up to 30 days. sertraline (ZOLOFT) 100 mg tablet Take 1 tablet by mouth once daily. In addition to 50mg tablet, for total of 150mg daily. sertraline (ZOLOFT) 50 mg tablet Take 1 tablet by mouth once daily. In addition to 100mg tablet, for total of 150mg daily. ezetimibe (ZETIA) 10 mg tablet Take 1 tablet by mouth once daily. At supper or bedtime lisinopril (ZESTRIL, PRINIVIL) 10 mg tablet Take 1 tablet by mouth once daily. As needed for BLOOD PRESSURE >140/90 exemestane (AROMASIN) 25 mg tablet Take 1 tablet by mouth once daily. TAKE AFTER A MEAL. vitamin b complex capsule Take 1 capsule by mouth once daily. Lactobacillus acidophilus (PROBIOTIC ORAL) Take 1 capsule by mouth once daily. metoprolol tartrate, short acting, (LOPRESSOR) 25 mg tablet Take 1 tablet by mouth twice daily as needed (tachycardia, palpitations). pramipexole (MIRAPEX) 0.5 mg tablet Take 1-2 tablets by mouth three times daily. traZODone (DESYREL) 50 mg tablet Take 1-2 tablets by mouth daily at bedtime. As needed for insomnia No current facility-administered medications for this visit. ALLERGIES Allergen Reactions Penicillins Intolerance Unknown reaction as a child Macrobid [Nitrofura* Hot, cold, achy Prednisone Other: See Comments Heart palpitations Adhesive Tape (Kassie* Intolerance Erythema after ribbon tape Social History Tobacco Use Smoking status: Never Smoker Smokeless tobacco: Never Used Vaping Use Vaping Use: Never used Substance Use Topics Alcohol use: Yes Comment: seldom Drug use: No ROS: See HPI PE: BP 130/80 Pulse 80 Temp (Src) 96.3 (Left Tympanic) Resp 16 Wt 173 lb (78.5kg) LMP 08/10/2012 Gen: A&OX3, NAD, non-toxic appearing HEENT: PERRLA, EOMs intact b/l, nares without drainage, pharynx without erythema, exudate, lesions, or drainage. Uvula midline. Neck: No LAD, no thyromegaly, no meningismus. CV: RRR, no murmur Lungs: CTA b/l, no wheezing Skin: No rashes, lesions, or wounds on exposed skin. Healed incision abdomen horizontally from flap surgery and right breast reconstruction. No edema legs, normal peripheral pulses ASSESSMENT/PLAN: 1. Situational anxiety - ICD9: 300.09, ICD10: F41.8 (primary diagnosis) - taking medications as prescribed, overall stable with use of zoloft and klonopin. Situation with her daughter is also improving 2. Restless legs - ICD9: 333.94, ICD10: G25.81 - add on magnesium supplement, if not improved, then trial of medication as below - PRAMIPEXOLE 0.5 MG TABLET 3. Situational insomnia - ICD9: 307.41, ICD10: F51.09 - improving, consider adding on magnesium supplement 4. S/P breast reconstruction - ICD9: V43.82, ICD10: Z98.890 - healed well, f/u with surgeon in Apr/May 5. Dyslipidemia - ICD9: 272.4, ICD10: E78.5 - suboptimal control - Encouraged following a low fat, low cholesterol diet. - Discussed the benefits of regular aerobic exercise and weight loss. 6. Fatigue, unspecified type - ICD9: 780.79, ICD10: R53.83 - improving 7. Vitamin D deficiency - ICD9: 268.9, ICD10: E55.9 - continue supplement 8. Myalgia - ICD9: 729.1, ICD10: M79.10 - likely multifactorial, add on some supplements, need for stretches and regular walking for exercise 9. Multiple joint pain - ICD9: 719.49, ICD10: M25.50 - likely multifactorial, add on some supplements, need for stretches and regular walking for exercise Ham Martinez, DO Return if no improvement. Follow up with Ham Martinez DO. To ER if develops chest pain, shortness of breath Discussed risks, benefits, alternatives, and potential side effects of medications. Patient/Guardian expressed understanding and agreed with the plan. See patient instructions. Ham Martinez DO [address] [place] [address] documented in this encounter [facility] 12-09-2021 Instructions Ham Martinez DO - 12/09/2021 11:11 AM EDT Consider Joint supplement Magnesium glycinate or gluconate 400-800 mg in the evening. OR Glucosamine Chondroitin supplement 2 per day with a meal OR Krill oil 0403-5044 mg a day OR Turmeric curcumin 500-800 mg twice a day with meals documented in this encounter [facility] 11-11-2021 History of Presen t illness Narrative REASON FOR VISIT H/o right breast cancer S/p right lumpectomy, chemotherapy, and XRT (2005) H/o right breast cancer recurrence S/p right mastectomy, 10/11/2019 S/p chemotherapy S/p delayed right breast reconstruction with free ms-TRAM flap and excision of chronic seroma cavity right chest wall ([place]), 08/03/2021 S/p I&D of abdominal wall hematoma 09/17/21 SUBJECTIVE Doreencolby Betancur is a 61 y.o. who presents 2 months post-op FU after I&D of abdomen and 3 months after ms-TRAM flap. Abdominal fullness much improved. No fluid collections - no signs of infection. Review of systems: No fevers/chills. No wound symptoms such as redness, swelling, increasing pain, or drainage. OBJECTIVE Vitals: 11/11/21 1508 BP: (!) 160/96 Pulse: 73 Resp: 16 Temp: 98.7 degrees F (37.1 degrees C) TempSrc: Oral SpO2: 97% GENERAL: NAD, A&O RIGHT BREAST: breast absent. Flap viable. Edema WNL post op. No concerns for fluid collection or infection LEFT BREAST: slightly larger and more ptotic ABDOMEN: Incision CDI. Healing well. No fluid collections, no concerns, palpable nodularity under suture line - likely dissolving sutures - one spitting removed today. ASSESSMENT S/p washout abdominal hematoma PLAN - Return in 3 months for FU - plan for revision surgeries in fall - May 27 A total of 15 minutes of [id number] time were spent with the patient, of which >50% were spent on counseling and coordination of care. documented in this encounter [facility] 10-24-2021 History of Presen t illness Narrative Images from the original note were not included. Subjective Patient came in with complaints of 2 sores in her mouth since Thursday. Patient has tried peroxide and mouth wash with no relief. Patient denies any other symptoms at this time. The history is provided by the patient. No languages and literature instructor was used. Headache Review of Systems Constitutional: Negative. Skin: Negative. Neurological: Negative for headaches. Objective Physical Exam Constitutional: Appearance: Normal appearance. HENT: Mouth/Throat: Lips: [place]. No lesions. Mouth: Mucous membranes are moist. Dentition: Gingival swelling present. Comments: The red are is a 1/2 mm tender soft lump skin tone color that is painful to touch. The blue area is a flesh colored lump that is where patient teeth would have bit area to cause swelling and pain. Pulmonary: Effort: Pulmonary effort is normal. Neurological: Mental Status: She is alert. PAST MEDICAL HISTORY Diagnosis Date Anxiety Malignant neoplasm of breast (female), unspecified site 05/2005 right breast Vitamin D deficiency PAST SURGICAL HISTORY Procedure Laterality Date BREAST RECONSTRUCTION Right DELIVERY ONLY times four COLONOSCOPY FLX DX W/COLLJ SPEC WHEN PFRMD 12/11/2014 Repeat 2024 DILATION & CURETTAGE DX&/THER NONOBSTETRIC LAPAROSCOPY W/RMVL ADNEXAL STRUCTURES 07/05/2013 Laprascopic BSO h/o breast ca LIG/TRNSXJ FLP TUBE ABDL/VAG APPR UNI/BI 1998(?) MAST MODF RAD W/AX LYMPH NOD W/WO PECT/VICKY MIN Right 10/11/2019 Dr. Arceo, [facility] PAST SURGICAL HISTORY OF 06/17/2005 lumpectomy and removal of lymph nodes PAST SURGICAL HISTORY OF 2018 Laser surgery vaginal ALLERGIES Penicillins, Macrobid [Nitrofurantoin Monohyd/M-Cryst], Prednisone, and Adhesive Tape (Rosins) MEDICATIONS cholecalciferol (VITAMIN D-3) 400 unit tab Take 400 Units by mouth once daily. sertraline (ZOLOFT) 100 mg tablet Take 1 tablet by mouth once daily. In addition to 50mg tablet, for total of 150mg daily. sertraline (ZOLOFT) 50 mg tablet Take 1 tablet by mouth once daily. In addition to 100mg tablet, for total of 150mg daily. ezetimibe (ZETIA) 10 mg tablet Take 1 tablet by mouth once daily. At supper or bedtime lisinopril (ZESTRIL, PRINIVIL) 10 mg tablet Take 1 tablet by mouth once daily. As needed for BLOOD PRESSURE >140/90 exemestane (AROMASIN) 25 mg tablet Take 1 tablet by mouth once daily. TAKE AFTER A MEAL. vitamin b complex capsule Take 1 capsule by mouth once daily. Lactobacillus acidophilus (PROBIOTIC ORAL) Take 1 capsule by mouth once daily. metoprolol tartrate, short acting, (LOPRESSOR) 25 mg tablet Take 1 tablet by mouth twice daily as needed (tachycardia, palpitations). traZODone (DESYREL) 50 mg tablet Take 1-2 tablets by mouth daily at bedtime. As needed for insomnia clindamycin (CLEOCIN) 150 mg capsule Take 3 capsules by mouth three times daily for 5 days. clonazePAM (KLONOPIN) 1 mg tablet Take 1 tablet by mouth twice daily as needed for up to 30 days. clobetasol (TEMOVATE) 0.05 % ointment Apply 1 application to affected area once daily as needed. FAMILY HISTORY Problem Relation Age of Onset Hypertension Mother Heart Father [place] at age 61 other (melanoma) Sister Heart Paternal Grandfather [place] age 61 Social History Tobacco Use Smoking status: Never Smoker Smokeless tobacco: Never Used Vaping Use Vaping Use: Never used Substance Use Topics Alcohol use: Yes Comment: seldom Drug use: No ASSESSMENT/PLAN: 1. Mouth sores - ICD9: 528.9, ICD10: K13.79 Clindamycin tid for 5 days prescribed. Patient instructed to follow up with here dentist in a week or sooner If any of the symptoms worsen. patient was okay with this care mikey Courtney Morataya APRN.SYL documented in this encounter [facility] 10-24-2021 Instructions Courtney Morataya APRN.CNP - 10/24/2021 11:24 AM EDT Follow up with dentist in a week or if anything worsens documented in this encounter [facility] 02-05-2021 History of Presen t illness Narrative Radiology Service Progress Note PATIENT NAME: Doreen Betancur DATE OF SERVICE: February 05, 2021 TIME: 12:12 PM PATIENT IDENTITY VERIFICATION COMPLETED USING TWO (2) IDENTIFIERS: Name and Date of confirmed by patient verbally. FALL SCREENING: Has the patient had 2 falls in the last year or 1 fall with injury or currently using an Ambulatory Assistive Device (Walker, Cane, Wheelchair, Crutches, etc.)? No PATIENT GENDER DATA: Female. status: : No status: NO. PATIENT RELEVANT IMPLANT DATA REVIEWED: Not Applicable RADIOLOGY DEPARTMENT: General X-ray: Exam(s) Completed: Upper Extremity X-Ray(s): Elbow, left PERIPHERAL IV DATA: Not applicable SIGNED BY: RT Nazanin(R) February 05, 2021 12:12 PM documented in this encounter [facility] 02-05-2021 History of Presen t illness Narrative Radiology Service Progress Note PATIENT NAME: Doreen Betancur DATE OF SERVICE: February 05, 2021 TIME: 11:20 AM PATIENT IDENTITY VERIFICATION COMPLETED USING TWO (2) IDENTIFIERS: Name and Date of confirmed by patient verbally. FALL SCREENING: Has the patient had 2 falls in the last year or 1 fall with injury or currently using an Ambulatory Assistive Device (Walker, Cane, Wheelchair, Crutches, etc.)? Yes, Patient High Risk for Falls What interventions were put in place to prevent falls during this visit? Increased Observations by Caregivers PATIENT GENDER DATA: Female. status: : No status: NO. PATIENT RELEVANT IMPLANT DATA REVIEWED: Not Applicable RADIOLOGY DEPARTMENT: General X-ray: Exam(s) Completed: Upper Extremity X-Ray(s): Forearm, left PERIPHERAL IV DATA: Not applicable SIGNED BY: RT Rich(R) February 05, 2021 11:20 AM documented in this encounter [facility] Evaluation note Diagnosis Mouth sores- Primary Other and unspecified diseases of the oral soft tissues [facility] Diagnosis Encounter for follow-up- Primary Personal history of malignant neoplasm of breast [facility] Diagnosis Situational anxiety- Primary Other anxiety states Restless legs Restless legs syndrome (RLS) Situational insomnia Transient disorder of initiating or maintaining sleep S/P breast reconstruction Breast replaced by other means Dyslipidemia Other and unspecified hyperlipidemia Fatigue, unspecified type Vitamin D deficiency Unspecified vitamin D deficiency Myalgia Mylagia and myositis, unspecified Multiple joint pain Pain in joint, multiple sites [facility] Diagnosis Personal history of malignant neoplasm of breast- Primary Personal history of malignant neoplasm of breast [facility] Diagnosis Situational anxiety- Primary Other anxiety states Situational insomnia Transient disorder of initiating or maintaining sleep Borderline abnormal thyroid function test Nonspecific abnormal results of thyroid function study Dyslipidemia Other and unspecified hyperlipidemia Osteopenia of multiple sites Muscle cramp Cramp of limb [facility] Diagnosis Malignant neoplasm of upper-outer quadrant of right breast in female, estrogen receptor positive (HCC)- Primary [facility]* Diagnosis S/P breast reconstruction Breast replaced by other means Personal history of malignant neoplasm of breast [facility] Diagnosis Personal history of malignant neoplasm of breast- Primary [facility] Situational anxiety- Primary Other anxiety states Situational insomnia Transient disorder of initiating or maintaining sleep Encounter for immunization Need for other specified prophylactic vaccination against single bacterial disease Dyslipidemia Other and unspecified hyperlipidemia Osteopenia of multiple sites Vitamin D deficiency Unspecified vitamin D deficiency Fatigue, unspecified type Multiple joint pain Pain in joint, multiple sites URI, acute Acute upper respiratory infections of unspecified site [facility] Diagnosis Restless leg syndrome- Primary Restless legs syndrome (RLS) Panic attack Panic disorder without agoraphobia [facility] Diagnosis Sinobronchitis- Primary Unspecified sinusitis (chronic) [facility] Diagnosis Panic attack- Primary Panic disorder without agoraphobia Palpitations Situational anxiety Other anxiety states Situational insomnia Transient disorder of initiating or maintaining sleep Depressive disorder Depressive disorder, not elsewhere classified [facility]* Diagnosis Situational anxiety Other anxiety states Situational insomnia Transient disorder of initiating or maintaining sleep [facility] Diagnosis Situational anxiety- Primary Other anxiety states Panic attack Panic disorder without agoraphobia Depressive disorder Depressive disorder, not elsewhere classified Lymphedema of arm Other lymphedema History of lymph node dissection of right axilla Arm swelling Swelling of limb Acute pain of right knee [facility]* Diagnosis Onset Date Resolution Status Invasive ductal carcinoma of right breast acute Atrophic vaginitis acute History of right breast cancer acute Encounter for routine gynecological examination noneactive [facility] Work Phone: Evaluation note* Diagnosis Dyslipidemia Other and unspecified hyperlipidemia [facility]* Diagnosis Lymphedema of arm- Primary Other lymphedema History of lymph node dissection of right axilla Arm swelling Swelling of limb documented in this encounter [facility] note* Diagnosis Situational anxiety- Primary Other anxiety states Depressive disorder Depressive disorder, not elsewhere classified Dyslipidemia Other and unspecified hyperlipidemia Osteopenia of multiple sites Vitamin D deficiency Unspecified vitamin D deficiency Fatigue, unspecified type Lamellar nail splitting Other specified disease of nail [facility]* Diagnosis Malignant neoplasm of upper-outer quadrant of right breast in female, estrogen receptor positive (HCC)- Primary Encounter for screening mammogram for high-risk patient [facility] Diagnosis Situational anxiety Other anxiety states Situational insomnia Transient disorder of initiating or maintaining sleep [facility] Diagnosis Situational anxiety- Primary Other anxiety states Muscle spasm of back Other symptoms referable to back Situational insomnia Transient disorder of initiating or maintaining sleep Anxiety and depression Dysthymic disorder [facility]* Diagnosis Situational anxiety Other anxiety states Situational insomnia Transient disorder of initiating or maintaining sleep [facility] Diagnosis Lymphedema of arm- Primary Other lymphedema History of lymph node dissection of right axilla Arm swelling Swelling of limb [facility] Diagnosis Lymphedema of arm- Primary Other lymphedema History of lymph node dissection of right axilla Arm swelling Swelling of limb [facility] Diagnosis Vertigo- Primary Dizziness and giddiness Situational anxiety Other anxiety states Situational insomnia Transient disorder of initiating or maintaining sleep Anxiety and depression Dysthymic disorder Hypothyroidism, acquired Unspecified hypothyroidism [facility] Diagnosis Malignant neoplasm of upper-outer quadrant of right breast in female, estrogen receptor positive (HCC)- Primary [facility]* Diagnosis Osteopenia of multiple sites [facility] Diagnosis Malignant neoplasm of upper-outer quadrant of right breast in female, estrogen receptor positive (HCC) Encounter for screening mammogram for high-risk patient [facility] Diagnosis Hypothyroidism, acquired Unspecified hypothyroidism [facility] Diagnosis Malignant neoplasm of upper-outer quadrant of right breast in female, estrogen receptor positive (HCC)- Primary Encounter for screening mammogram for high-risk patient [facility]* Diagnosis Tachycardia- Primary Tachycardia, unspecified Anxiety and depression Dysthymic disorder Hypothyroidism, acquired Unspecified hypothyroidism SOB (shortness of breath) Shortness of breath Palpitations Chronic pain of both knees Rash Rash and other nonspecific skin eruption Acute effusion of both middle ears [facility]* Diagnosis Dysuria- Primary [facility]* Diagnosis Tachycardia Tachycardia, unspecified SOB (shortness of breath) Shortness of breath Palpitations documented in this encounter [facility] note* Diagnosis Vertigo- Primary Dizziness and giddiness Dizziness Dizziness and giddiness Anxiety and depression Dysthymic disorder Hypothyroidism, acquired Unspecified hypothyroidism [facility]* Diagnosis Anxiety and depression Dysthymic disorder [facility]* Diagnosis Anxiety and depression Dysthymic disorder Hypothyroidism, acquired Unspecified hypothyroidism [facility]* Diagnosis Myalgia- Primary Mylagia and myositis, unspecified Hypothyroidism, acquired Unspecified hypothyroidism Iron deficiency anemia due to chronic blood loss Iron deficiency anemia secondary to blood loss (chronic) Dyslipidemia Other and unspecified hyperlipidemia Anxiety and depression Dysthymic disorder Vertigo Dizziness and giddiness Vitamin D deficiency Unspecified vitamin D deficiency Fatigue, unspecified type Hyperglycemia Other abnormal glucose [facility]* Diagnosis Chronic pain of both knees [facility]* Diagnosis Vertigo- Primary Dizziness and giddiness [facility]* Diagnosis Malignant neoplasm of upper-outer quadrant of right breast in female, estrogen receptor positive (HCC) Encounter for screening mammogram for high-risk patient [facility]* Diagnosis Dyslipidemia Other and unspecified hyperlipidemia [facility]* Diagnosis Vertigo- Primary Dizziness and giddiness [facility]* Diagnosis Malignant neoplasm of upper-outer quadrant of right breast in female, estrogen receptor positive (HCC)- Primary documented in this encounter [facility] note* Diagnosis Vertigo- Primary Dizziness and giddiness [facility]* Diagnosis Sinobronchitis Unspecified sinusitis (chronic) [facility]* Diagnosis Disorder of bone and cartilage Disorder of bone and cartilage, unspecified [facility]* Diagnosis Dysuria- Primary Anxiety and depression Dysthymic disorder Recurrent UTI (urinary tract infection) Urinary tract infection, site not specified Hyperlipidemia, mixed Mixed hyperlipidemia Hyperglycemia Other abnormal glucose [facility]* Diagnosis Malignant neoplasm of upper-outer quadrant of right breast in female, estrogen receptor positive (HCC)- Primary Encounter for screening mammogram for high-risk patient documented in this encounter [facility] note* Diagnosis Hypothyroidism, acquired Unspecified hypothyroidism documented in this encounter [facility] note* Diagnosis Wrist injury, left, initial encounter- Primary Wrist injury, left, initial encounter documented in this encounter [facility] note* Diagnosis Wrist injury, left, initial encounter documented in this encounter [facility] note* Diagnosis Wrist injury, left, initial encounter documented in this encounter [facility] note* Diagnosis Wrist injury, left, initial encounter documented in this encounter [facility] note* Diagnosis Injury of left wrist, initial encounter- Primary documented in this encounter [facility] note* Diagnosis Anxiety and depression Dysthymic disorder documented in this encounter [facility] note* Diagnosis Traumatic closed nondisplaced fracture of distal end of left radius, with routine healing, subsequent encounter- Primary documented in this encounter [facility] note* Diagnosis Injury of left wrist, initial encounter documented in this encounter [facility] for referral (narrative)* Diagnostic Procedure Only (Routine) - Authorized Specialty Diagnoses / Procedures Referred By Contac t Referred To Contact [facility] Diagnoses Malignant neoplasm of upper-outer quadrant of right breast in female, estrogen receptor positive (HCC) Encounter for screening mammogram for high-risk patient Procedures KIERRA SCREENING W KEZIA SCREENING DIGITAL BREAST TOMOSYNTHESIS BI SCREENING MAMMOGRAPHY BI 2-VIEW BREAST INC Becca Weaver APRN.CNP [address] [place] [address] [facility] [address] [place] [phone] Referral ID Status Reason Start Date Expiration Date Visits Requested Visits Authorized [id number] Authorized Auto-Generat ed Referral 11/24/2022 12/24/2023 1 1 [facility] for referral (narrative)* Diagnostic Procedure Only (Routine) - Closed Specialty Diagnoses / Procedures Referred By Contac t Referred To Contact [facility] Diagnoses Malignant neoplasm of upper-outer quadrant of right breast in female, estrogen receptor positive (HCC) Encounter for screening mammogram for high-risk patient Procedures KIERRA SCREENING W KEZIA SCREENING DIGITAL BREAST TOMOSYNTHESIS BI SCREENING MAMMOGRAPHY BI 2-VIEW BREAST INC [facility], SCENERY BUILDER.SLICING MACHINE TENDER [address] [place] [address] [facility] [address] [place] [address] Referral ID Status Reason Start Date Expiration Date V isits Requested Visits Authorized [id number] Closed Auto-Generate d Referral 11/24/2022 12/24/2023 1 1 [facility] for referral (narrative)* Diagnostic Procedure Only (Routine) - Authorized Specialty Diagnoses / Procedures Referred By Donita cooper Referred To Contact [facility] Diagnoses Malignant neoplasm of upper-outer quadrant of right breast in female, estrogen receptor positive (HCC) Encounter for screening mammogram for high-risk patient Procedures KIERRA SCREENING W KEZIA SCREENING DIGITAL BREAST TOMOSYNTHESIS BI SCREENING MAMMOGRAPHY BI 2-VIEW BREAST INC [facility], SCENERY BUILDER.SLICING MACHINE TENDER [address] [id number] [facility] [address] [place] [address] Referral ID Status Reason Start Date Expiration Date Visits Requested Visits Authorized [id number] Authorized Auto-Generat ed Referral 11/25/2023 12/24/2024 1 1 [facility] for referral (narrative)* Diagnostic Procedure Only (Routine) - Closed Specialty Diagnoses / Procedures Referred By Donita t Referred To Contact XR IMAGING Diagnoses Chronic pain of both knees Procedures XR KNEE GENERAL 4V AP BOTH/PA BOTH/LAT/MERC BILATERAL RADIOLOGIC EXAM KNEE COMPLETE 4/MORE VIEWS Ham Martinez DO [address] [place] [address] [place] [address] Referral ID Status Reason Start Date Expiration Date V isits Requested Visits Authorized [id number] Closed Auto-Generate d Referral 11/25/2023 12/24/2024 1 1 * Outpatient Procedure (Routine) - Pending Review Specialty Diagnoses / Procedures Referred By Contac t Referred To Contact [facility] [place] Diagnoses Tachycardia SOB (shortness of breath) Palpitations Procedures ECG COMPLETE ECG ROUTINE ECG W/LEAST 12 LDS W/I&R Ham Martinez DO [address] [place] [address] [facility] [place] [address] [address] Referral ID Status Reason Start Date Expiration Date Visits Requested Visits Authorized [id number] Pending Review Auto-Generat ed Referral 11/25/2023 11/24/2024 1 1 * Outpatient Procedure (Routine) - Authorized Specialty Diagnoses / Procedures Referred By Contac t Referred To Contact [facility] Diagnoses Tachycardia SOB (shortness of breath) Palpitations Procedures EXERCISE STRESS ECG (WITHOUT IMAGING) Ham Martinez DO [address] [place] [address] [facility] [employer] [place] [address] Referral ID Status Reason Start Date Expiration Date Visits Requested Visits Authorized [id number] Authorized Auto-Generat ed Referral 11/25/2023 11/24/2024 1 1 [facility] for referral (narrative)* Outpatient Procedure (Routine) - Closed Specialty Diagnoses / Procedures Referred By Contac t Referred To Contact [facility] Diagnoses Tachycardia SOB (shortness of breath) Palpitations Procedures EXERCISE STRESS ECG (WITHOUT IMAGING) Ham Martinez DO [address] [place] [address] [place] [address] [address] Referral ID Status Reason Start Date Expiration Date V isits Requested Visits Authorized [id number] Closed Auto-Generate d Referral 11/25/2023 11/24/2024 1 1 [facility] for referral (narrative)* Diagnostic Procedure Only (Routine) - Closed Specialty Diagnoses / Procedures Referred By Donita t Referred To Contact XR IMAGING Diagnoses Chronic pain of both knees Procedures XR KNEE GENERAL 4V AP BOTH/PA BOTH/LAT/MERC BILATERAL RADIOLOGIC EXAM KNEE COMPLETE 4/MORE VIEWS Ham Martinez, DO [address] [place] [address] [place] [address] Referral ID Status Reason Start Date Expiration Date V isits Requested Visits Authorized [id number] Closed Auto-Generate d Referral 11/25/2023 12/24/2024 1 1 [facility] for referral (narrative)* Diagnostic Procedure Only (Routine) - Closed Specialty Diagnoses / Procedures Referred By Donita cooper Referred To Contact [facility] Diagnoses Malignant neoplasm of upper-outer quadrant of right breast in female, estrogen receptor positive (HCC) Encounter for screening mammogram for high-risk patient Procedures KIERRA SCREENING W KEZIA SCREENING DIGITAL BREAST TOMOSYNTHESIS BI SCREENING MAMMOGRAPHY BI 2-VIEW BREAST INC Becca Weaver, ALISSA.SLICING MACHINE TENDER [address] [place] [address] [facility] [address] [place] [address] Referral ID Status Reason Start Date Expiration Date V isits Requested Visits Authorized [id number] Closed Auto-Generate d Referral 11/25/2023 12/24/2024 1 1 [facility] for visit Narrative* Auth/Cert Specialty Diagnoses / Procedures Referred By Donita cooper Referred To Contact Diagnoses Personal history of malignant neoplasm of breast Personal history of malignant neoplasm of breast [Z85.3] Procedures ID SUSPENSION OF BREAST (MASTOPEXY) ID REVISION OF RECONSTRUCTED BREAST ID EXCISE EXCESS SKIN TISSUE,ABDOMEN ID GRAFTING OF AUTOLOGOUS FAT BY LIPO 50 CC OR LESS ID EXC SKIN BENIG </= 0.5CM TRUNK,ARM,LEG MASTOPEXY REVISION BREAST RECONSTRUCTION EXCISION EXCESSIVE SKIN SQ TISSUE ABDOMEN GRAFT AUTOLOGOUS FAT TRUNK BREAST EXCISION LESION SKIN TRUNK Jose Francisco Coughlin MD [address] [facility] [address] [place] [address] [facility] [address] [place] [address] Referral ID Status Reason Start Date Expiration Date Visits Re quested Visits Authorized [id number] 1 [facility] Diagnostic Procedure Only (Routine) - Closed Specialty Diagnoses / Procedures Referred By Dnoita cooper Referred To Contact [facility] Diagnoses Malignant neoplasm of upper-outer quadrant of right breast in female, estrogen receptor positive (HCC) Encounter for screening mammogram for high-risk patient Procedures KIERRA SCREENING W KEZIA SCREENING DIGITAL BREAST TOMOSYNTHESIS BI SCREENING MAMMOGRAPHY BI 2-VIEW BREAST INC Becca Weaver, SCENERY BUILDER.SLICING MACHINE TENDER [address] [place] [address] [facility] [address] [place] [address] Referral ID Status Reason Start Date Expiration Date V isits Requested Visits Authorized [id number] Closed Auto-Generate d Referral 11/24/2022 12/24/2023 1 1 [facility] for visit Narrative* Outpatient Procedure (Routine) - Closed Specialty Diagnoses / Procedures Referred By Donita cooper Referred To [facility] Diagnoses Tachycardia SOB (shortness of breath) Palpitations Procedures EXERCISE STRESS ECG (WITHOUT IMAGING) Ham Martinez DO [address] [place] [address] [facility] [place] [address] [place] [address] Referral ID Status Reason Start Date Expiration Date V isits Requested Visits Authorized [id number] Closed Auto-Generate d Referral 11/25/2023 11/24/2024 1 1 [facility] for visit Narrative* Diagnostic Procedure Only (Routine) - Closed Specialty Diagnoses / Procedures Referred By Donita cooper Referred To Contact XR IMAGING Diagnoses Chronic pain of both knees Procedures XR KNEE GENERAL 4V AP BOTH/PA BOTH/LAT/MERC BILATERAL RADIOLOGIC EXAM KNEE COMPLETE 4/MORE VIEWS Ham Martinez, DO [address] [place] [address] [place] [address] Referral ID Status Reason Start Date Expiration Date V isits Requested Visits Authorized [id number] Closed Auto-Generate d Referral 11/25/2023 12/24/2024 1 1 [facility] for visit Narrative* Diagnostic Procedure Only (Routine) - Closed Specialty Diagnoses / Procedures Referred By Contac t Referred To Contact [facility] Diagnoses Malignant neoplasm of upper-outer quadrant of right breast in female, estrogen receptor positive (HCC) Encounter for screening mammogram for high-risk patient Procedures KIERRA SCREENING W KEZIA SCREENING DIGITAL BREAST TOMOSYNTHESIS BI SCREENING MAMMOGRAPHY BI 2-VIEW BREAST INC Becca Weaver, SCENERY BUILDER.SLICING MACHINE TENDER [address] [place] [address] [facility] [address] [place] [address] Referral ID Status Reason Start Date Expiration Date V isits Requested Visits Authorized [id number] Closed Auto-Generate d Referral 11/25/2023 12/24/2024 1 1 [facility] for visit Narrative* Diagnostic Procedure Only (Urgent) - Closed Specialty Diagnoses / Procedures Referred By Contac t Referred To Contact XR IMAGING Diagnoses Wrist injury, left, initial encounter Procedures XR HAND GENERAL 3V PA/LAT/OBL LEFT RADEX HAND MINIMUM 3 VIEWS Matthew Maki, SCENERY BUILDER.SLICING MACHINE TENDER [address] [place] [address] Phone: tel: fax: [place] [address] Referral ID Status Reason Start Date Expiration Date V isits Requested Visits Authorized [id number] Closed Auto-Generate d Referral 01/01/2025 01/31/2026 1 1 [facility] for visit Narrative* Diagnostic Procedure Only (Routine) - Closed Specialty Diagnoses / Procedures Referred By Contac t Referred To Contact XR IMAGING Diagnoses Wrist injury, left, initial encounter Procedures XR WRIST ORTH FX FU 2V PA/LAT LEFT RADEX WRIST 2 VIEWS Ethan Mckeon, V, DO [address] [place] [address] Phone: tel: fax: [place] [address] Referral ID Status Reason Start Date Expiration Date V isits Requested Visits Authorized [id number] Closed Auto-Generate d Referral 01/10/2025 02/09/2026 1 1 [facility] for visit Narrative* Consult, Test, Treat (Routine) - Closed Specialty Diagnoses / Procedures Referred By Contac t Referred To Contact Orthopedics Diagnoses Wrist injury, left, initial encounter Procedures CONSULT TO ORTHOPAEDICS OFFICE/OUTPATIENT [facility] MDM 60 MINUTES Matthew Maki APRN.SLICING MACHINE TENDER [address] [place] [address] Phone: tel: fax: Referral ID Status Reason Start Date Expiration Date V isits Requested Visits Authorized [id number] Closed PCP Requested Referral 01/02/2025 01/02/2026 1 1 [facility] for visit Narrative* Diagnostic Procedure Only (Routine) - Closed Specialty Diagnoses / Procedures Referred By Contac t Referred To Contact XR IMAGING Diagnoses Injury of left wrist, initial encounter Procedures XR WRIST GENERAL 3V PA/LAT/OBL LEFT RADEX WRIST COMPLETE MINIMUM 3 VIEWS Ethan Mckeon, V, DO [address] [place] [address] Phone: tel: fax: [place] [address] Referral ID Status Reason Start Date Expiration Date V isits Requested Visits Authorized [id number] Closed Auto-Generate d Referral 01/31/2025 03/02/2026 1 1 [facility] Summary Purpose Family History Relationship Condition Age at Onset Recorded Date/T lucy sister Malignant melanoma Unknown father Myocardial infarction Unknown Asthma Unknown mother Anemia Unknown aunt Malignant neoplasm of breast Unknown Advance Directives Latest Code Status on File Code Status Date Activated Date Inactivated Comments Full Code 09/17/2021 11:04 AM Full Code 08/13/2021 5:48 PM 09/17/2021 11:04 AM Latest Code Status on File Code Status Date Activated Date Inactivated Comments Full Code 09/17/2021 11:04 AM Code Status History Code Status Date Activated Date Inactivated Comments Full Code 08/13/2021 5:48 PM 09/17/2021 11:04 AM Latest Code Status on File Code Status Date Activated Date Inactivated Comments Full Code 09/17/2021 11:04 AM Code Status History Code Status Date Activated Date Inactivated Comments Full Code 08/13/2021 5:48 PM 09/17/2021 11:04 AM Advance Directive Response Recorded Date/ Time Advance Directives No August 28, 2016 1:58pm Living Will No January 19, 2020 1:17pm Power of Teller Manager No January 18 1:17pm Reason for Referral Specialty Diagnoses / Procedures Referred By Contac t Referred To Contact Diagnoses S/P breast reconstruction Procedures NO MECHANICAL DVT PROPHYLAXIS Carlotta Randle PA-C [address] [place] [address] Referral ID Status Reason Start Date Expiration Date V isits Requested Visits Authorized [id number] New Request 05/27/2022 06/21/2023 1 1 Specialty Diagnoses / Procedures Referred By Contac t Referred To Contact Diagnoses S/P breast reconstruction Procedures LOW RISK - NO PHARMACOLOGICAL DVT PROPHYLAXIS Carlotta Randle PA-C [address] [place] [address] Referral ID Status Reason Start Date Expiration Date V isits Requested Visits Authorized [id number] New Request 05/27/2022 06/21/2023 1 1 Specialty Diagnoses / Procedures Referred By Contac t Referred To Contact Diagnoses S/P breast reconstruction Procedures DVT/VTE RISK ASSESSMENT Carlotta Randle PA-C [address] [place] [address] Referral ID Status Reason Start Date Expiration Date V isits Requested Visits Authorized [id number] New Request 05/27/2022 06/21/2023 1 1 Specialty Diagnoses / Procedures Referred By Contac t Referred To Contact [facility] Diagnoses Lymphedema of arm History of lymph node dissection of right axilla Arm swelling Procedures CONSULT TO PHYSICAL THERAPY PHYSICAL THERAPY EVALUATION HIGH COMPLEX 45 MINS Ham Martinez, [address] [place] [address] [facility] [address] [place] [address] Referral ID Status Reason Start Date Expiration Date Visits Requested Visits Authorized [id number] Pending Review Auto-Generat ed Referral 10/24/2022 10/24/2023 1 1 Specialty Diagnoses / Procedures Referred By Contac t Referred To Contact [facility] Diagnoses Lymphedema of arm History of lymph node dissection of right axilla Arm swelling Procedures PT REHAB FOLLOW UP ORDER THERAPEUTIC EXERCISES RE, EA 15 MIN. Kirstin Cotton, [facility] [place] [address] [place] [address] Referral ID Status Reason Start Date Expiration Date Visits Requested Visits Authorized [id number] Pending Review PCP Requested Referral Auto-Generate d Referral 11/14/2022 02/12/2023 1 1 Specialty Diagnoses / Procedures Referred By Contac t Referred To Contact [facility] Diagnoses Vertigo Procedures CONSULT TO PHYSICAL THERAPY PHYSICAL THERAPY EVALUATION HIGH COMPLEX 45 MINS Ham Martinez, DO [address] [place] [address] [facility] [address] [address] Referral ID Status Reason Start Date Expiration Date Visits Requested Visits Authorized [id number] Pending Review Auto-Generat ed Referral 02/20/2023 02/20/2024 1 1 Referral ID Status Reason Start Date Expiration Date V isits Requested Visits Authorized [id number] Closed Auto-Generate d Referral 02/08/2024 02/07/2025 1 0 Chief Complaint and Reason for Visit Chief Complaint 4 month 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) Reason for Visit 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 Atrophic vaginitis History of right breast cancer Encounter for routine gynecological examination Additional Source Comments INFORMATION SOURCE (unrecogn ized section and content) DATE CREATED AUTHOR 03/26/2021 [facility] DATE CREATED AUTHOR AUTHOR'S ORGANIZ ATION 08/23/2022 [facility] DATE CREATED AUTHOR AUTHOR'S ORGANIZ ATION 10/29/2022 [facility] DATE CREATED AUTHOR AUTHOR'S ORGANIZ ATION 12/08/2023 [facility] DATE CREATED AUTHOR AUTHOR'S ORGANIZ ATION 02/05/2025 [facility] Source Comments (unrecognize d section and content) In the event this informatio n is protected by the Federal Confidentiality of Alcohol and Drug Abuse Patient Records regulations: The Federal rules restrict any use of the information to criminally investigate or prosecute any alcohol or drug abuse patient.[facility] the event this information is protected by the Federal Confidentiality of Alcohol and Drug Abuse Patient Records regulations: The Federal rules restrict any use of the information to criminally investigate or prosecute any alcohol or drug abuse patient.[facility] the event this information is protected by the Federal Confidentiality of Alcohol and Drug Abuse Patient Records regulations: The Federal rules restrict any use of the information to criminally investigate or prosecute any alcohol or drug abuse patient.[facility] the event this information is protected by the Federal Confidentiality of Alcohol and Drug Abuse Patient Records regulations: The Federal rules restrict any use of the information to criminally investigate or prosecute any alcohol or drug abuse patient.[facility] the event this information is protected by the Federal Confidentiality of Alcohol and Drug Abuse Patient Records regulations: The Federal rules restrict any use of the information to criminally investigate or prosecute any alcohol or drug abuse patient.[facility] the event this information is protected by the Federal Confidentiality of Alcohol and Drug Abuse Patient Records regulations: The Federal rules restrict any use of the information to criminally investigate or prosecute any alcohol or drug abuse patient.[facility] the event this information is protected by the Federal Confidentiality of Alcohol and Drug Abuse Patient Records regulations: The Federal rules restrict any use of the information to criminally investigate or prosecute any alcohol or drug abuse patient.[facility] the event this information is protected by the Federal Confidentiality of Alcohol and Drug Abuse Patient Records regulations: The Federal rules restrict any use of the information to criminally investigate or prosecute any alcohol or drug abuse patient.[facility] the event this information is protected by the Federal Confidentiality of Alcohol and Drug Abuse Patient Records regulations: The Federal rules restrict any use of the information to criminally investigate or prosecute any alcohol or drug abuse patient.[facility] the event this information is protected by the Federal Confidentiality of Alcohol and Drug Abuse Patient Records regulations: The Federal rules restrict any use of the information to criminally investigate or prosecute any alcohol or drug abuse patient.[facility] the event this information is protected by the Federal Confidentiality of Alcohol and Drug Abuse Patient Records regulations: The Federal rules restrict any use of the information to criminally investigate or prosecute any alcohol or drug abuse patient.[facility] the event this information is protected by the Federal Confidentiality of Alcohol and Drug Abuse Patient Records regulations: The Federal rules restrict any use of the information to criminally investigate or prosecute any alcohol or drug abuse patient.[facility] the event this information is protected by the Federal Confidentiality of Alcohol and Drug Abuse Patient Records regulations: The Federal rules restrict any use of the information to criminally investigate or prosecute any alcohol or drug abuse patient.[facility] Center[facility] the event this information is protected by the Federal Confidentiality of Alcohol and Drug Abuse Patient Records regulations: The Federal rules restrict any use of the information to criminally investigate or prosecute any alcohol or drug abuse patient.[facility] Center[facility] the event this information is protected by the Federal Confidentiality of Alcohol and Drug Abuse Patient Records regulations: The Federal rules restrict any use of the information to criminally investigate or prosecute any alcohol or drug abuse patient.[facility] Center[facility] the event this information is protected by the Federal Confidentiality of Alcohol and Drug Abuse Patient Records regulations: The Federal rules restrict any use of the information to criminally investigate or prosecute any alcohol or drug abuse patient.[facility] Center[facility] the event this information is protected by the Federal Confidentiality of Alcohol and Drug Abuse Patient Records regulations: The Federal rules restrict any use of the information to criminally investigate or prosecute any alcohol or drug abuse patient.[facility] Center[facility] the event this information is protected by the Federal Confidentiality of Alcohol and Drug Abuse Patient Records regulations: The Federal rules restrict any use of the information to criminally investigate or prosecute any alcohol or drug abuse patient.[facility] Center[facility] the event this information is protected by the Federal Confidentiality of Alcohol and Drug Abuse Patient Records regulations: The Federal rules restrict any use of the information to criminally investigate or prosecute any alcohol or drug abuse patient.[facility] CenterIn the event this information is protected by the Federal Confidentiality of Alcohol and Drug Abuse Patient Records regulations: The Federal rules restrict any use of the information to criminally investigate or prosecute any alcohol or drug abuse patient.[facility] CenterIn the event this information is protected by the Federal Confidentiality of Alcohol and Drug Abuse Patient Records regulations: The Federal rules restrict any use of the information to criminally investigate or prosecute any alcohol or drug abuse patient.[facility] CenterIn the event this information is protected by the Federal Confidentiality of Alcohol and Drug Abuse Patient Records regulations: The Federal rules restrict any use of the information to criminally investigate or prosecute any alcohol or drug abuse patient.[facility] CenterIn the event this information is protected by the Federal Confidentiality of Alcohol and Drug Abuse Patient Records regulations: The Federal rules restrict any use of the information to criminally investigate or prosecute any alcohol or drug abuse patient.[facility] CenterIn the event this information is protected by the Federal Confidentiality of Alcohol and Drug Abuse Patient Records regulations: The Federal rules restrict any use of the information to criminally investigate or prosecute any alcohol or drug abuse patient.[facility] CenterIn the event this information is protected by the Federal Confidentiality of Alcohol and Drug Abuse Patient Records regulations: The Federal rules restrict any use of the information to criminally investigate or prosecute any alcohol or drug abuse patient.[facility] CenterIn the event this information is protected by the Federal Confidentiality of Alcohol and Drug Abuse Patient Records regulations: The Federal rules restrict any use of the information to criminally investigate or prosecute any alcohol or drug abuse patient.[facility] CenterIn the event this information is protected by the Federal Confidentiality of Alcohol and Drug Abuse Patient Records regulations: The Federal rules restrict any use of the information to criminally investigate or prosecute any alcohol or drug abuse patient.[facility] CenterIn the event this information is protected by the Federal Confidentiality of Alcohol and Drug Abuse Patient Records regulations: The Federal rules restrict any use of the information to criminally investigate or prosecute any alcohol or drug abuse patient.[facility] CenterIn the event this information is protected by the Federal Confidentiality of Alcohol and Drug Abuse Patient Records regulations: The Federal rules restrict any use of the information to criminally investigate or prosecute any alcohol or drug abuse patient.[facility] CenterIn the event this information is protected by the Federal Confidentiality of Alcohol and Drug Abuse Patient Records regulations: The Federal rules restrict any use of the information to criminally investigate or prosecute any alcohol or drug abuse patient.[facility] CenterIn the event this information is protected by the Federal Confidentiality of Alcohol and Drug Abuse Patient Records regulations: The Federal rules restrict any use of the information to criminally investigate or prosecute any alcohol or drug abuse patient.[facility] CenterIn the event this information is protected by the Federal Confidentiality of Alcohol and Drug Abuse Patient Records regulations: The Federal rules restrict any use of the information to criminally investigate or prosecute any alcohol or drug abuse patient.[facility] CenterIn the event this information is protected by the Federal Confidentiality of Alcohol and Drug Abuse Patient Records regulations: The Federal rules restrict any use of the information to criminally investigate or prosecute any alcohol or drug abuse patient.[facility] CenterIn the event this information is protected by the Federal Confidentiality of Alcohol and Drug Abuse Patient Records regulations: The Federal rules restrict any use of the information to criminally investigate or prosecute any alcohol or drug abuse patient.[facility] CenterIn the event this information is protected by the Federal Confidentiality of Alcohol and Drug Abuse Patient Records regulations: The Federal rules restrict any use of the information to criminally investigate or prosecute any alcohol or drug abuse patient.[facility] CenterIn the event this information is protected by the Federal Confidentiality of Alcohol and Drug Abuse Patient Records regulations: The Federal rules restrict any use of the information to criminally investigate or prosecute any alcohol or drug abuse patient.[facility] CenterIn the event this information is protected by the Federal Confidentiality of Alcohol and Drug Abuse Patient Records regulations: The Federal rules restrict any use of the information to criminally investigate or prosecute any alcohol or drug abuse patient.[facility] CenterIn the event this information is protected by the Federal Confidentiality of Alcohol and Drug Abuse Patient Records regulations: The Federal rules restrict any use of the information to criminally investigate or prosecute any alcohol or drug abuse patient.[facility] CenterIn the event this information is protected by the Federal Confidentiality of Alcohol and Drug Abuse Patient Records regulations: The Federal rules restrict any use of the information to criminally investigate or prosecute any alcohol or drug abuse patient.[facility] CenterIn the event this information is protected by the Federal Confidentiality of Alcohol and Drug Abuse Patient Records regulations: The Federal rules restrict any use of the information to criminally investigate or prosecute any alcohol or drug abuse patient.[facility] CenterIn the event this information is protected by the Federal Confidentiality of Alcohol and Drug Abuse Patient Records regulations: The Federal rules restrict any use of the information to criminally investigate or prosecute any alcohol or drug abuse patient.[facility] CenterIn the event this information is protected by the Federal Confidentiality of Alcohol and Drug Abuse Patient Records regulations: The Federal rules restrict any use of the information to criminally investigate or prosecute any alcohol or drug abuse patient.[facility] CenterIn the event this information is protected by the Federal Confidentiality of Alcohol and Drug Abuse Patient Records regulations: The Federal rules restrict any use of the information to criminally investigate or prosecute any alcohol or drug abuse patient.[facility] CenterIn the event this information is protected by the Federal Confidentiality of Alcohol and Drug Abuse Patient Records regulations: The Federal rules restrict any use of the information to criminally investigate or prosecute any alcohol or drug abuse patient.[facility] CenterIn the event this information is protected by the Federal Confidentiality of Alcohol and Drug Abuse Patient Records regulations: The Federal rules restrict any use of the information to criminally investigate or prosecute any alcohol or drug abuse patient.[facility] CenterIn the event this information is protected by the Federal Confidentiality of Alcohol and Drug Abuse Patient Records regulations: The Federal rules restrict any use of the information to criminally investigate or prosecute any alcohol or drug abuse patient.[facility] CenterIn the event this information is protected by the Federal Confidentiality of Alcohol and Drug Abuse Patient Records regulations: The Federal rules restrict any use of the information to criminally investigate or prosecute any alcohol or drug abuse patient.[facility] CenterIn the event this information is protected by the Federal Confidentiality of Alcohol and Drug Abuse Patient Records regulations: The Federal rules restrict any use of the information to criminally investigate or prosecute any alcohol or drug abuse patient.[facility] CenterIn the event this information is protected by the Federal Confidentiality of Alcohol and Drug Abuse Patient Records regulations: The Federal rules restrict any use of the information to criminally investigate or prosecute any alcohol or drug abuse patient.[facility] CenterIn the event this information is protected by the Federal Confidentiality of Alcohol and Drug Abuse Patient Records regulations: The Federal rules restrict any use of the information to criminally investigate or prosecute any alcohol or drug abuse patient.[facility] CenterIn the event this information is protected by the Federal Confidentiality of Alcohol and Drug Abuse Patient Records regulations: The Federal rules restrict any use of the information to criminally investigate or prosecute any alcohol or drug abuse patient.[facility] the event this information is protected by the Federal Confidentiality of Alcohol and Drug Abuse Patient Records regulations: The Federal rules restrict any use of the information to criminally investigate or prosecute any alcohol or drug abuse patient.[facility] CenterIn the event this information is protected by the Federal Confidentiality of Alcohol and Drug Abuse Patient Records regulations: The Federal rules restrict any use of the information to criminally investigate or prosecute any alcohol or drug abuse patient.[facility] CenterIn the event this information is protected by the Federal Confidentiality of Alcohol and Drug Abuse Patient Records regulations: The Federal rules restrict any use of the information to criminally investigate or prosecute any alcohol or drug abuse patient.[facility]In the event this information is protected by the Federal Confidentiality of Alcohol and Drug Abuse Patient Records regulations: The Federal rules restrict any use of the information to criminally investigate or prosecute any alcohol or drug abuse patient.[facility] CenterIn the event this information is protected by the Federal Confidentiality of Alcohol and Drug Abuse Patient Records regulations: The Federal rules restrict any use of the information to criminally investigate or prosecute any alcohol or drug abuse patient.[facility] CenterIn the event this information is protected by the Federal Confidentiality of Alcohol and Drug Abuse Patient Records regulations: The Federal rules restrict any use of the information to criminally investigate or prosecute any alcohol or drug abuse patient.[facility] CenterIn the event this information is protected by the Federal Confidentiality of Alcohol and Drug Abuse Patient Records regulations: The Federal rules restrict any use of the information to criminally investigate or prosecute any alcohol or drug abuse patient.[facility] CenterIn the event this information is protected by the Federal Confidentiality of Alcohol and Drug Abuse Patient Records regulations: The Federal rules restrict any use of the information to criminally investigate or prosecute any alcohol or drug abuse patient.[facility] CenterIn the event this information is protected by the Federal Confidentiality of Alcohol and Drug Abuse Patient Records regulations: The Federal rules restrict any use of the information to criminally investigate or prosecute any alcohol or drug abuse patient.[facility] CenterIn the event this information is protected by the Federal Confidentiality of Alcohol and Drug Abuse Patient Records regulations: The Federal rules restrict any use of the information to criminally investigate or prosecute any alcohol or drug abuse patient.[facility] CenterIn the event this information is protected by the Federal Confidentiality of Alcohol and Drug Abuse Patient Records regulations: The Federal rules restrict any use of the information to criminally investigate or prosecute any alcohol or drug abuse patient.[facility] CenterIn the event this information is protected by the Federal Confidentiality of Alcohol and Drug Abuse Patient Records regulations: The Federal rules restrict any use of the information to criminally investigate or prosecute any alcohol or drug abuse patient.[facility] CenterIn the event this information is protected by the Federal Confidentiality of Alcohol and Drug Abuse Patient Records regulations: The Federal rules restrict any use of the information to criminally investigate or prosecute any alcohol or drug abuse patient.[facility] CenterIn the event this information is protected by the Federal Confidentiality of Alcohol and Drug Abuse Patient Records regulations: The Federal rules restrict any use of the information to criminally investigate or prosecute any alcohol or drug abuse patient.[facility] CenterIn the event this information is protected by the Federal Confidentiality of Alcohol and Drug Abuse Patient Records regulations: The Federal rules restrict any use of the information to criminally investigate or prosecute any alcohol or drug abuse patient.[facility] CenterIn the event this information is protected by the Federal Confidentiality of Alcohol and Drug Abuse Patient Records regulations: The Federal rules restrict any use of the information to criminally investigate or prosecute any alcohol or drug abuse patient.[facility] CenterIn the event this information is protected by the Federal Confidentiality of Alcohol and Drug Abuse Patient Records regulations: The Federal rules restrict any use of the information to criminally investigate or prosecute any alcohol or drug abuse patient.[facility] CenterIn the event this information is protected by the Federal Confidentiality of Alcohol and Drug Abuse Patient Records regulations: The Federal rules restrict any use of the information to criminally investigate or prosecute any alcohol or drug abuse patient.[facility] CenterIn the event this information is protected by the Federal Confidentiality of Alcohol and Drug Abuse Patient Records regulations: The Federal rules restrict any use of the information to criminally investigate or prosecute any alcohol or drug abuse patient.[facility] CenterIn the event this information is protected by the Federal Confidentiality of Alcohol and Drug Abuse Patient Records regulations: The Federal rules restrict any use of the information to criminally investigate or prosecute any alcohol or drug abuse patient.[facility] CenterIn the event this information is protected by the Federal Confidentiality of Alcohol and Drug Abuse Patient Records regulations: The Federal rules restrict any use of the information to criminally investigate or prosecute any alcohol or drug abuse patient.[facility] CenterIn the event this information is protected by the Federal Confidentiality of Alcohol and Drug Abuse Patient Records regulations: The Federal rules restrict any use of the information to criminally investigate or prosecute any alcohol or drug abuse patient.[facility] CenterIn the event this information is protected by the Federal Confidentiality of Alcohol and Drug Abuse Patient Records regulations: The Federal rules restrict any use of the information to criminally investigate or prosecute any alcohol or drug abuse patient.[facility] CenterIn the event this information is protected by the Federal Confidentiality of Alcohol and Drug Abuse Patient Records regulations: The Federal rules restrict any use of the information to criminally investigate or prosecute any alcohol or drug abuse patient.[facility] CenterIn the event this information is protected by the Federal Confidentiality of Alcohol and Drug Abuse Patient Records regulations: The Federal rules restrict any use of the information to criminally investigate or prosecute any alcohol or drug abuse patient.[facility] CenterIn the event this information is protected by the Federal Confidentiality of Alcohol and Drug Abuse Patient Records regulations: The Federal rules restrict any use of the information to criminally investigate or prosecute any alcohol or drug abuse patient.[facility] CenterIn the event this information is protected by the Federal Confidentiality of Alcohol and Drug Abuse Patient Records regulations: The Federal rules restrict any use of the information to criminally investigate or prosecute any alcohol or drug abuse patient.[facility] CenterIn the event this information is protected by the Federal Confidentiality of Alcohol and Drug Abuse Patient Records regulations: The Federal rules restrict any use of the information to criminally investigate or prosecute any alcohol or drug abuse patient.[facility] CenterIn the event this information is protected by the Federal Confidentiality of Alcohol and Drug Abuse Patient Records regulations: The Federal rules restrict any use of the information to criminally investigate or prosecute any alcohol or drug abuse patient.[facility] Reason for Visit (unrecogniz ed section and content) Reason Comments PT Progress Note Specialty Diagnoses / Procedures Referred By Contac t Referred To Contact PHYSICAL THERAPY Diagnoses Dx: Vertigo [R42] Comment: VESTIBULAR therapy Procedures EST PATIENT VISIT LEVEL 1 Dx: Vertigo [R42] Comment: VESTIBULAR therapy Ham Martinez, DO [address] [place] [address] Pt [facility] [address] [place] [address] Referral ID Status Reason Start Date Expiration Date V isits Requested Visits Authorized [id number] Authorized 07/27/2023 07/26/2024 18 20 Reason Comments Physical Therapy Reason Comments Physical Therapy PT Discharge Specialty Diagnoses / Procedures Referred By Contac t Referred To Contact [facility] Diagnoses Lymphedema of arm History of lymph node dissection of right axilla Arm swelling Procedures CONSULT TO PHYSICAL THERAPY PHYSICAL THERAPY EVALUATION HIGH COMPLEX 45 MINS THERAPEUTIC EXERCISES RE, EA 15 MIN. Ham Martinez, DO [address] [place] [address] [facility] [address] [place] [id number] Referral ID Status Reason Start Date Expiration Date Visits Requested Visits Authorized [id number] Authorized Auto-Generat ed Referral 07/27/2022 07/26/2023 14 14 Reason Comments Pain Pt reported raised, painful area between lip, gums x4 days pain rated 3 Headache x3 days Reason Comments Follow-up Reason Comments Follow Up 3 months Reason Comments Insurance Authorization Reason Comments Felt Checker - Other Symptoms Reason Comments Established Patient Reason Comments Post Op Visit Reason Comments Patient Question Reason Comments Recheck 3 month follow up Reason Comments Results Reason Comments Anxiety Reason Comments Anxiety/requesting medication instructio ns Reason Comments Head Congestion headache,cough, feve r and chills x 10 days Reason Comments Follow Up Anxiety Reason Comments Medication Dosage Adjustment Reason Comments Follow Up Reason Onset Date Comments Refill Request 05/12/2022 Refill Request 10/31/2022 Reason Comments PT Eval Specialty Diagnoses / Procedures Referred By Contac t Referred To Contact [facility] Diagnoses Lymphedema of arm History of lymph node dissection of right axilla Arm swelling Procedures CONSULT TO PHYSICAL THERAPY PHYSICAL THERAPY EVALUATION HIGH COMPLEX 45 MINS THERAPEUTIC EXERCISES RE, EA 15 MIN. Ham Martinez, DO [address] [place] [address] [facility] [id number] [place] [address] Reason Comments Follow Up Reason Comments Established Patient Reason Comments Medication Question Reason Comments Follow Up 1 month Reason Comments Refill Request Reason Comments 6 Month Exam Reason Comments Follow Up Head feels funny x 2 weeks intermitted Reason Onset Date Comments Refill Request 02/29/2024 Reason Onset Date Comments Refill Request 03/26/2024 Reason Comments F/U 3 Month Reason Comments PT Eval Reason Onset Date Comments Refill Request 04/24/2024 Reason Onset Date Comments Refill Request 12/21/2024 Reason Comments Trauma Fell down and injure d left hand/wrist x 1 day Reason Comments Left wrist injury Referred by Jay Aranda [email or web address] 01/02/25 Specialty Diagnoses / Procedures Referred By Donita cooper Referred To Contact Orthopedics Diagnoses Wrist injury, left, initial encounter Procedures CONSULT TO ORTHOPAEDICS OFFICE/[facility] 60 MINUTES Matthew Maki APRN.SLICING MACHINE TENDER [address] [place] [address] Phone: tel: fax: Referral ID Status Reason Start Date Expiration Date V isits Requested Visits Authorized [id number] Closed PCP Requested Referral 01/02/2025 01/02/2026 1 1 Reason Onset Date Comments Refill Request 01/31/2025 Care Teams (unrecognized sec tion and content) Machine Operators Relationship Specialty Start Date End Date Ham Martinez, DO [address] [place] [address] PCP - General Family Practice 09/21/13 Flavia Hawley MD, MD [address] [place], [place] [address] Physician Radiation Oncology 10/31/19 Olya Jose LISW In Home Aide 11/10/19 Carly Johnson RN Specialty Felt Checker Oncology 11/28/19 Machine Operators Relationship Specialty Start Date End Date Ham Martinez DO [address] [place], [place] [address] PCP - General Family Medicine 07/30/21 Penelope Phan, circus trainer 08/16/21 Machine Operators Relationship Specialty Start Date End Date Ham Martinez DO [address] [place], [place] [id number] PCP - General Family Practice 09/21/13 Flavia Hawley MD, [address] [place] [address] Physician Radiation Oncology 10/31/19 Olya Jose LISW In Home Aide 11/10/19 Carly Johnson RN Specialty Felt Checker Oncology 11/28/19 Machine Operators Relationship Specialty Start Date End Date Ham Martinez, DO [address] [place] [address] PCP - General Family Practice 09/21/13 Flavia Hawley MD, [address] [place] [address] Physician Radiation Oncology 10/31/19 Olya Jose LISW In Home Aide 11/10/19 Carly Johnson RN Specialty Felt Checker Oncology 11/28/19 Machine Operators Relationship Specialty Start Date End Date Ham Martinez, DO [address] [place] [address] PCP - General Family Practice 09/21/13 Flavia Hawley MD, [address] [place] [address] Physician Radiation Oncology 10/31/19 Olya Jose LISW In Home Aide 11/10/19 Carly Johnson RN Specialty Felt Checker Oncology 11/28/19 Machine Operators Relationship Specialty Start Date End Date Ham Martinez DO [address] [place] [address] PCP - General Family Medicine 07/30/21 Machine Operators Relationship Specialty Start Date End Date Ham Martinez, DO [address] [place] [address] PCP - General Family Practice 09/21/13 Flavia Hwaley MDMD [address] [place] [address] Physician Radiation Oncology 10/31/19 Olya Jose, RN In Home Aide 11/10/19 Carly Johnson RN Specialty Felt Checker Oncology 11/28/19 Machine Operators Relationship Specialty Start Date End Date Ham Martinez, DO [address] [place] [address] PCP - General Family Practice 09/21/13 Flavia Hawley MD, [address] [place] [address] Physician Radiation Oncology 10/31/19 Olya Jose, RN In Home Aide 11/10/19 Carly Johnson RN Specialty Felt Checker Oncology 11/28/19 Machine Operators Relationship Specialty Start Date End Date Ham Martinez, DO [address] [place] [address] PCP - General Family Medicine 09/21/13 Flavia Hawley MD, [address] [place] [address] Physician Radiation Oncology 10/31/19 Olya Jose RN In Home Aide 11/10/19 Carly Johnson RN Specialty Felt Checker Oncology 11/28/19 Machine Operators Relationship Specialty Start Date End Date Ham Martinez, DO [address] [place] [address] PCP - General Family Medicine 07/30/21 Machine Operators Relationship Specialty Start Date End Date Ham Martinez, DO [address] [place] [address] PCP - General Family Medicine 09/21/13 Flavia Hawley MD, [address] [place] [address] Physician Radiation Oncology 10/31/19 Olya Jose RN In Home Aide 11/10/19 Carly Johnson RN Specialty Felt Checker Oncology 11/28/19 Machine Operators Relationship Specialty Start Date End Date Ham Martinez, DO [address] [place] [address] PCP - General Family Medicine 07/30/21 Machine Operators Relationship Specialty Start Date End Date Ham Martinez, DO [address] [place] [address] PCP - General Family Medicine 09/21/13 Flavia Hawley MD, [address] [place] [place] [address] Physician Radiation Oncology 10/31/19 Olya Jose RN In Home Aide 11/10/19 Carly Johnson RN Specialty Felt Checker Oncology 11/28/19 Machine Operators Relationship Specialty Start Date End Date Ham Martinez, DO [address] [place] [address] PCP - General Family Medicine 09/21/13 Flavia Hawley MD, [address] [place] [address] Physician Radiation Oncology 10/31/19 Olya Jose RN In Home Aide 11/10/19 Carly Johnson RN Specialty Felt Checker Oncology 11/28/19 Machine Operators Relationship Specialty Start Date End Date Ham Martinez, DO [address] [place] [address] PCP - General Family Medicine 09/21/13 Flavia Hawley MD, MD [address] [place] [place] [address] Physician Radiation Oncology 10/31/19 Olya Jose RN In Home Aide 11/10/19 Carly Johnson RN Specialty Felt Checker Oncology 11/28/19 Machine Operators Relationship Specialty Start Date End Date Ham Martinez, DO [address] [place] [address] PCP - General Family Medicine 09/21/13 Flavia Hawley MD, [address] [place] [address] Physician Radiation Oncology 10/31/19 Olya Jose, RN In Home Aide 11/10/19 Carly Johnson RN Specialty Felt Checker Oncology 11/28/19 Machine Operators Relationship Specialty Start Date End Date Ham Martinez, DO [address] [place] [address] PCP - General Family Medicine 09/21/13 Flavia Hawley MD, [address] [place] [address] Physician Radiation Oncology 10/31/19 Olya Jose RN In Home Aide 11/10/19 Carly Johnson RN Specialty Felt Checker Oncology 11/28/19 Machine Operators Relationship Specialty Start Date End Date Ham Martinez, DO [address] [place] [address] PCP - General Family Medicine 09/21/13 Flavia Hawley MD, [address] [place] [address] Physician Radiation Oncology 10/31/19 Olya Jose RN In Home Aide 11/10/19 Carly Johnson RN Specialty Felt Checker Oncology 11/28/19 Machine Operators Relationship Specialty Start Date End Date Ham Martinez, DO [address] [place] [address] PCP - General Family Medicine 09/21/13 Flavia Hawley MD, [address] [place] [address] Physician Radiation Oncology 10/31/19 Olya Jose, IVY In Home Aide 11/10/19 Carly Johnson RN Specialty Felt Checker Oncology 11/28/19 Team Status: Active Member Role Status Dates Dr. Ham Martinez DO Family Provider Active Dr. Ham Martinez DO Primary Care Provider Active Team Status: Inactive Member Role Status Dates Dr. Ham Martinez DO Primary Care Provider, Referr ing Provider Active Dr. Jimmy Cota DO Attending Provider Active Team Status: Inactive Member Role Status Dates Dr. Ham Martinez DO Primary Care Provider, Referr ing Provider Active Ai Contreras 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, 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 Attending Provider Active Team Status: Inactive Member Role Status Dates Dr. Ham Martinez DO Primary Care Provider Active Ai Contreras 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, 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 Attending Provider, Referring Provider Active Machine Operators Relationship Specialty Start Date End Date Ham Martinez, DO [address] [place] [address] PCP - General Family Medicine 09/21/13 Flavia Hawley MD, MD [address] [place] [address] Physician Radiation Oncology 10/31/19 Olya Jose, RN In Home Aide 11/10/19 Carly Johnson RN Specialty Felt Checker Oncology 11/28/19 Machine Operators Relationship Specialty Start Date End Date Ham Martinez, DO [address] [place] [address] PCP - General Family Medicine 09/21/13 Flavia Hawley MD, MD [address] [place] [address] Physician Radiation Oncology 10/31/19 Olya Jose, RN In Home Aide 11/10/19 Carly Johnson RN Specialty Felt Checker Oncology 11/28/19 Machine Operators Relationship Specialty Start Date End Date Ham Martinez, DO [address] [place] [address] PCP - General Family Medicine 09/21/13 Flavia Hawley MD, [address] [place] [address] Physician Radiation Oncology 10/31/19 Olya Jose RN In Home Aide 11/10/19 Carly Johnson RN Specialty Felt Checker Oncology 11/28/19 Machine Operators Relationship Specialty Start Date End Date Ham Martinez, DO [address] [place] [address] PCP - General Family Medicine 09/21/13 Flavia Hawley MD, [address] [place] [address] Physician Radiation Oncology 10/31/19 Olya Jose RN In Home Aide 11/10/19 Carly Johnson RN Specialty Felt Checker Oncology 11/28/19 Machine Operators Relationship Specialty Start Date End Date Ham Martinez, DO [address] [place] [address] PCP - General Family Medicine 09/21/13 Flavia Hawley MD, [address] [place] [address] Physician Radiation Oncology 10/31/19 Olya Jose RN In Home Aide 11/10/19 Carly Johnson RN Specialty Felt Checker Oncology 11/28/19 Machine Operators Relationship Specialty Start Date End Date Ham Martinez, DO [address] [place] [address] PCP - General Family Medicine 09/21/13 Flavia Hawley MD, [address] [place] [address] Physician Radiation Oncology 10/31/19 Olya Jose RN In Home Aide 11/10/19 Carly Johnson RN Specialty Felt Checker Oncology 11/28/19 Machine Operators Relationship Specialty Start Date End Date Ham Martinez, DO [address] [place] [address] PCP - General Family Medicine 09/21/13 Flavia Hawley MD, [address] [place] [address] Physician Radiation Oncology 10/31/19 Olya Jose RN In Home Aide 11/10/19 Carly Johnson RN Specialty Felt Checker Oncology 11/28/19 Machine Operators Relationship Specialty Start Date End Date Ham Martinez, DO [address] [place] [address] PCP - General Family Medicine 09/21/13 Flavia Hawley MD, [address] [place] [address] Physician Radiation Oncology 10/31/19 Olya Jose RN In Home Aide 11/10/19 Carly Johnson RN Specialty Felt Checker Oncology 11/28/19 Machine Operators Relationship Specialty Start Date End Date Ham Martinez, DO [address] [place] [address] PCP - General Family Medicine 09/21/13 Flavia Hawley MD, [address] [place] [address] Physician Radiation Oncology 10/31/19 Olya Jose RN In Home Aide 11/10/19 Carly Johnson RN Specialty Felt Checker Oncology 11/28/19 Machine Operators Relationship Specialty Start Date End Date Ham Martinez DO [address] [place] [address] PCP - General Family Medicine 09/21/13 Flavia Hawley MDMD [address] [place] [address] Physician Radiation Oncology 10/31/19 Olya Jose, RN In Home Aide 11/10/19 Carly Johnson RN Specialty Felt Checker Oncology 11/28/19 Machine Operators Relationship Specialty Start Date End Date Ham Martinez DO [address] [place] [address] PCP - General Family Medicine 09/21/13 Flavia Hawley MD, [address] [place] [address] Physician Radiation Oncology 10/31/19 Olya Jose RN In Home Aide 11/10/19 Carly Johnson RN Specialty Felt Checker Oncology 11/28/19 Machine Operators Relationship Specialty Start Date End Date Ham Martinez DO [address] [place] [address] PCP - General Family Medicine 09/21/13 Flavia Hawley MD, [address] [place] [address] Physician Radiation Oncology 10/31/19 Olya Jose RN In Home Aide 11/10/19 Carly Johnson RN Specialty Felt Checker Oncology 11/28/19 Machine Operators Relationship Specialty Start Date End Date Ham Martinez DO [address] [place] [address] PCP - General Family Medicine 09/21/13 Flavia Hawley MD, [address] [place] [address] Physician Radiation Oncology 10/31/19 Olya Jose RN In Home Aide 11/10/19 Carly Johnson RN Specialty Felt Checker Oncology 11/28/19 Machine Operators Relationship Specialty Start Date End Date Ham Martinez DO [address] [place] [address] PCP - General Family Medicine 09/21/13 Flavia Hawley MD, [address] [place] [address] Physician Radiation Oncology 10/31/19 Olya Jose RN In Home Aide 11/10/19 Carly Johnson RN Specialty Felt Checker Oncology 11/28/19 Machine Operators Relationship Specialty Start Date End Date Ham Martinez DO [address] [place] [address] PCP - General Family Medicine 09/21/13 Flavia Hawley MD, [address] [place] [address] Physician Radiation Oncology 10/31/19 Olya Jose RN In Home Aide 11/10/19 Carly Johnson RN Specialty Felt Checker Oncology 11/28/19 Machine Operators Relationship Specialty Start Date End Date Ham Martinez DO [address] [place] [address] PCP - General Family Medicine 09/21/13 Flavia Hawley MD [address] [place] [address] Physician Radiation Oncology 10/31/19 Olya Jose RN In Home Aide 11/10/19 Carly Johnson RN Specialty Felt Checker Oncology 11/28/19 Machine Operators Relationship Specialty Start Date End Date Ham Martinez DO [address] [facility] [address] PCP - General Family Medicine 09/21/13 Flavia Hawley MD [address] [place] [address] Physician Radiation Oncology 10/31/19 Olya Jose, RN In Home Aide 11/10/19 Carly Johnson RN Specialty Felt Checker Oncology 11/28/19 Machine Operators Relationship Specialty Start Date End Date Ham Martinez DO [address] [facility] [address] PCP - General Family Medicine 09/21/13 Flavia Hawley MD [address] [place] [address] Physician Radiation Oncology 10/31/19 Olya Jose RN In Home Aide 11/10/19 Carly Johnson RN Specialty Felt Checker Oncology 11/28/19 Machine Operators Relationship Specialty Start Date End Date Ham Martinez DO [address] [facility] [address] PCP - General Family Medicine 09/21/13 Flavia Hawley MD [address] [place] [address] Physician Radiation Oncology 10/31/19 Olya Jose, RN In Home Aide 11/10/19 Carly Johnson RN Specialty Felt Checker Oncology 11/28/19 Machine Operators Relationship Specialty Start Date End Date Ham Martinez DO [address] [place] [address] PCP - General Family Medicine 09/21/13 Flavia Hawley MD [address] [place] [address] Physician Radiation Oncology 10/31/19 Olya Jose RN In Home Aide 11/10/19 Carly Johnson RN Specialty Felt Checker Oncology 11/28/19 Machine Operators Relationship Specialty Start Date End Date Ham Martinez DO [address] [place] [address] PCP - General Family Medicine 09/21/13 Flavia Hawley MD [address] [place] [address] Physician Radiation Oncology 10/31/19 Olya Jose RN In Home Aide 11/10/19 Carly Johnson RN Specialty Felt Checker Oncology 11/28/19 Machine Operators Relationship Specialty Start Date End Date Ham Martinez DO [address] [place] [address] PCP - General Family Medicine 09/21/13 Flavia Hawley MD [address] [place] [address] Physician Radiation Oncology 10/31/19 Olya Jose RN In Home Aide 11/10/19 Carly Johnson RN Specialty Felt Checker Oncology 11/28/19 Machine Operators Relationship Specialty Start Date End Date Ham Martinez DO [address] [place] [address] PCP - General Family Medicine 09/21/13 Flavia Hawley MD [address] [place] [address] Physician Radiation Oncology 10/31/19 Olya Jose RN In Home Aide 11/10/19 Carly Johnson RN Specialty Felt Checker Oncology 11/28/19 Machine Operators Relationship Specialty Start Date End Date Ham Martinez DO [address] [facility] [address] PCP - General Family Medicine 09/21/13 Flavia Hawley MD [address] [place] [address] Physician Radiation Oncology 10/31/19 Olya Jose RN In Home Aide 11/10/19 Carly Johnson RN Specialty Felt Checker Oncology 11/28/19 Machine Operators Relationship Specialty Start Date End Date Ham Martinez DO [address] [place] [address] PCP - General Family Medicine 09/21/13 Flavia Hawley MD [address] [place] [address] Physician Radiation Oncology 10/31/19 Olya Jose RN In Home Aide 11/10/19 Carly Johnson RN Specialty Felt Checker Oncology 11/28/19 Machine Operators Relationship Specialty Start Date End Date Ham Martinez DO [address] [place] [address] PCP - General Family Medicine 09/21/13 Flavia Hawley MD [address] [place] [address] Physician Radiation Oncology 10/31/19 Olya Jose RN In Home Aide 11/10/19 Carly Johnson RN Specialty Felt Checker Oncology 11/28/19 Machine Operators Relationship Specialty Start Date End Date Ham Martinez DO [address] [place] [address] PCP - General Family Medicine 09/21/13 Flavia Hawley MD [address] [place] [address] Physician Radiation Oncology 10/31/19 Olya Jose, RN In Home Aide 11/10/19 Carly Johnson RN Specialty Felt Checker Oncology 11/28/19 Machine Operators Relationship Specialty Start Date End Date Ham Martinez DO [address] [place] [address] PCP - General Family Medicine 09/21/13 Flavia Hawley MD [address] [place] [address] Physician Radiation Oncology 10/31/19 Olya Jose RN In Home Aide 11/10/19 Carly Johnson RN Specialty Felt Checker Oncology 11/28/19 Machine Operators Relationship Specialty Start Date End Date Ham Martinez DO [address] [place] [address] PCP - General Family Medicine 09/21/13 Flavia Hawley MD [address] [place] [address] Physician Radiation Oncology 10/31/19 Olya Jose, RN In Home Aide 11/10/19 Carly Johnson RN Specialty Felt Checker Oncology 11/28/19 Machine Operators Relationship Specialty Start Date End Date Ham Martinez DO [address] [place] [address] PCP - General Family Medicine 09/21/13 Flavia Hawley MD [address] [place] [address] Physician Radiation Oncology 10/31/19 Olya Jose RN In Home Aide 11/10/19 Carly Johnson RN Specialty Felt Checker Oncology 11/28/19 Machine Operators Relationship Specialty Start Date End Date Ham Martinez DO [address] [place] [address] PCP - General Family Medicine 09/21/13 Flavia Hawley MD [address] [place] [address] Physician Radiation Oncology 10/31/19 Olya Jose RN In Home Aide 11/10/19 Carly Johnson RN Specialty Felt Checker Oncology 11/28/19 Machine Operators Relationship Specialty Start Date End Date Ham Martinez DO [address] [place] [address] PCP - General Family Medicine 09/21/13 Flavia Hawley MD [address] [place] [address] Physician Radiation Oncology 10/31/19 Olya Jose RN In Home Aide 11/10/19 Carly Johnson RN Specialty Felt Checker Oncology 11/28/19 Taisha Bess, SCENERY BUILDER.SLICING MACHINE TENDER [address] [place] [address] Cloth Picker Family Medicine 07/03/24 Crystal Ayala APRN.SLICING MACHINE TENDER [address] [place] [address] Cloth Picker Family Medicine 07/03/24 Machine Operators Relationship Specialty Start Date End Date Ham Martinez DO [address] [place] [address] PCP - General Family Medicine 09/21/13 Flavia Hawley MD [address] [place] [address] Physician Radiation Oncology 10/31/19 Olya Jose, RN In Home Aide 11/10/19 Carly Johnson, RN Specialty Felt Checker Oncology 11/28/19 Taisha Bess, SCENERY BUILDER.SLICING MACHINE TENDER [address] [place] [address] [facility] 07/03/24 Crystal Ayala, SCENERY BUILDER.SLICING MACHINE TENDER [address] [place] [address] [facility] 07/03/24 Machine Operators Relationship Specialty Start Date End Date Ham Martinez DO [address] [place] [address] PCP - General Family Medicine 09/21/13 Flavia Hawley MD [address] [place] [address] Physician Radiation Oncology 10/31/19 Olya Jose, RN In Home Aide 11/10/19 Carly Johnson RN Specialty Felt Checker Oncology 11/28/19 Taisha Bess, SCENERY BUILDER.SLICING MACHINE TENDER [address] [place] [address] Critical [facility] 07/03/24 Crystal Ayala, SCENERY BUILDER.SLICING MACHINE TENDER [address] [place] [address] [facility] Machine Operators Relationship Specialty Start Date End Date Ham Martinez DO [address] [place] [address] PCP - General Family Medicine 09/21/13 Flavia Hawley MD [address] [place] [address] Physician Radiation Oncology 10/31/19 Olya Jose, IVY In Home Aide 11/10/19 Carly Johnson RN Specialty Felt Checker Oncology 11/28/19 Taisha Bess, SCENERY BUILDER.SLICING MACHINE TENDER [address] [place] [address] [facility] 07/03/24 Crystal Ayala, SCENERY BUILDER.SLICING MACHINE TENDER [address] [place] [address] [facility] 07/03/24 Machine Operators Relationship Specialty Start Date End Date Ham Martinez DO [address] [place] [address] PCP - General Family Medicine 09/21/13 Flavia Hawley MD [address] [place] [address] Physician Radiation Oncology 10/31/19 Olya Jose, RN In Home Aide 11/10/19 Carly Johnson RN Specialty Felt Checker Oncology 11/28/19 Crystal Ayala, SCENERY BUILDER.SLICING MACHINE TENDER [address] [place] [address] Cloth Picker Family Medicine 07/03/24 Machine Operators Relationship Specialty Start Date End Date Ham Martinez DO [address] [place] [address] PCP - General Family Medicine 09/21/13 Flavia Hawley MD [address] [place] [address] Physician Radiation Oncology 10/31/19 Olya Jose, RN In Home Aide 11/10/19 Carly Johnson, RN Specialty Felt Checker Oncology 11/28/19 Crystal Ayala, SCENERY BUILDER.SLICING MACHINE TENDER [address] [place] [address] [facility] Machine Operators Relationship Specialty Start Date End Date Ham Martinez DO [address] [place] [address] PCP - General Family Medicine 09/21/13 Flavia Hawley MD [address] [place] [address] Physician Radiation Oncology 10/31/19 Olya Jose, RN In Home Aide 11/10/19 Carly Johnson RN Specialty Felt Checker Oncology 11/28/19 Crystal Ayala, SCENERY BUILDER.SLICING MACHINE TENDER [address] [place] [address] [facility] 07/03/24 Machine Operators Relationship Specialty Start Date End Date Ham Martinez DO [address] [place] [address] PCP - General Family Medicine 09/21/13 Flavia Hawley MD [address] [place] [address] Physician Radiation Oncology 10/31/19 Olya Jose, RN In Home Aide 11/10/19 Carly Johnson RN Specialty Felt Checker Oncology 11/28/19 Crystal Ayala, SCENERY BUILDER.SLICING MACHINE TENDER [address] [place] [address] Cloth Picker [facility] 07/03/24 Machine Operators Relationship Specialty Start Date End Date Ham Martinez DO [address] [place] [address] PCP - General Family Medicine 09/21/13 Flavia Hawley MD [address] [place] [address] Physician Radiation Oncology 10/31/19 Olya Jose RN In Home Aide 11/10/19 Carly Johnson RN Specialty Felt Checker Oncology 11/28/19 LucyCrystal, SCENERY BUILDER.SLICING MACHINE TENDER [address] [place] [address] Cloth Picker [facility] 07/03/24 Machine Operators Relationship Specialty Start Date End Date Ham Martinez DO [address] [place] [address] PCP - General Family Medicine 09/21/13 Flavia Hawley MD [address] [place] [address] Physician Radiation Oncology 10/31/19 Olya Jose, RN In Home Aide 11/10/19 Carly Johnson RN Specialty Felt Checker Oncology 11/28/19 LucyCrystal, SCENERY BUILDER.SLICING MACHINE TENDER [address] [facility], [place] [address] [phone] [facility] 07/03/24 Miriam Buckner, SCENERY BUILDER.SLICING MACHINE TENDER [address] [facility], [place] [address] [phone] [facility] 01/09/25 Machine Operators Relationship Specialty Start Date End Date Ham Martinez DO [address] [place] [address] PCP - General Family Medicine 09/21/13 Flavia Hawley MD [address] [place], [place] [address] [phone] Physician Radiation Oncology 10/31/19 Olya Jose, RN In Home Aide 11/10/19 Carly Johnson, IVY Specialty Felt Checker Oncology 11/28/19 [facility], SCENERY BUILDER.SLICING MACHINE TENDER [address] [place] [address] [facility] 07/03/24 Miriam Buckner, SCENERY BUILDER.SLICING MACHINE TENDER [address] [place] [address] [facility] 01/09/25 Machine Operators Relationship Specialty Start Date End Date Ham Martinez DO [address] [facility], [place] [address] [phone] PCP - General Family Medicine 09/21/13 Flavia Hawley MD [address] [place] [address] Physician Radiation Oncology 10/31/19 Olya Jose, RN In Home Aide 11/10/19 Carly Johnson RN Specialty Felt Checker Oncology 11/28/19 Crystal Ayala, SCENERY BUILDER.SLICING MACHINE TENDER [address] [place] [address] [facility] 07/03/24 Miriam Buckner, SCENERY BUILDER.SLICING MACHINE TENDER [address] [place] [address] [facility] 01/09/25 Machine Operators Relationship Specialty Start Date End Date Ham Martinez DO [address] [place] [address] PCP - General Family Medicine 09/21/13 Flavia Hawley MD [address] [place] [address], [place] [address] Physician Radiation Oncology 10/31/19 Olya Jose, RN In Home Aide 11/10/19 Carly Johnson RN Specialty Felt Checker Oncology 11/28/19 Crystal Ayala, SCENERY BUILDER.SLICING MACHINE TENDER [address] [place] [address] [facility] 07/03/24 Miriam Buckner, SCENERY BUILDER.SLICING MACHINE TENDER [address] [place] [address] Critical [facility] 01/09/25 Machine Operators Relationship Specialty Start Date End Date Ham Martinez DO [address] [place] [address] PCP - General Family Medicine 09/21/13 Flavia Hawley MD [address] [place] [address] Physician Radiation Oncology 10/31/19 Olya Jose, RN In Home Aide 11/10/19 Carly Johnson, IVY Specialty Felt Checker Oncology 11/28/19 Crystal Ayala, SCENERY BUILDER.SLICING MACHINE TENDER [address] [place], [place] [address] [facility] 07/03/24 Miriam Buckner, SCENERY BUILDER.SLICING MACHINE TENDER [address] [place] [address] [facility] 01/09/25 Machine Operators Relationship Specialty Start Date End Date Ham Martinez DO [address] [place], [place] 506[address] [phone] PCP - General Family Medicine 09/21/13 Flavia Hawley MD [address] [place] [address] Physician Radiation Oncology 10/31/19 Olya Jose, RN In Home Aide 11/10/19 Carly Johnson, IVY Specialty Felt Checker Oncology 11/28/19 Crystal Ayala, SCENERY BUILDER.SLICING MACHINE TENDER [address] [place] [address] [facility] 07/03/24 Miriam Buckner APRN.SLICING MACHINE TENDER [address] [place], [place] [address] [facility] 01/09/25 Scheduled Active and Recently Administ ered Medications (unrecognized section and content) Medication Order 05/25/2022 05/26/2022 05/27/2022 aprepitant (EMEND) capsule 40 mg 40 mg, Oral, ONCE, 1 dose, On Thu05/27/22 at 0830, Administer 40 mg (1 capsule) ONCE at least 30 minutes prior to induction of anesthesia. Swallow capsules whole. Do NOT crush, chew, or open., Pre-op/Pre-Proc 0830 (Canceled Entry - Provider: System Discharge - Comment: Automatically canceled at discontinue of medication order) haloperidol lactate (HALDOL) injection 1 mg 1 mg, Intravenous, ONCE, 1 dose, On Thu05/27/22 at 1330 1330 (Canceled Entry - Provider: System Discharge - Comment: Automatically canceled at discontinue of medication order) scopolamine (TRANSDERM-SCOP) patch 1 patch(Linked Group 1) 1 patch, Transdermal, EVERY 72 HOURS, First dose on Thu05/27/22 at 0830, Until Discontinued, Apply patch to site behind the ear. Rotate sites for each application. Do not cut or alter patch. Each patch delivers 1 mg over 72 hours., Pre-op/Pre-Proc 0816 (Given - Provid er: Franca Bautista MD) sertraline (ZOLOFT) tablet 100 mg (COMPLETED) 100 mg, Oral, ONCE, 1 dose, On Thu05/27/22 at 1300, Recovery 1327 (Given - Provid er: Anaid Merida RN) VERIFY LINKED PATCH PLACEMENT(Linked Group 1) Other, EVERY 12 HOURS, First dose on Thu05/27/22 at 0900, Until Discontinued, Confirm continued adhesion of scopolamine 1.5 mg/72hr patch at documented site. 0900 (Canceled Entry - Provider: System Discharge - Comment: Automatically canceled at discontinue of medication order) Continuous Medication Order 05/25/2022 05/26/2022 05/27/2022 lactated ringers IV solution Intravenous, at 75 mL/hr, CONTINUOUS, Starting on Thu05/27/22 at 0600, Until Thu05/27/22 at 1618, Pre-op/Pre-Proc 0629 ($$New Bag$$ - Provider: Abby Vidal, RN) PRN Medication Order 05/25/2022 05/26/2022 05/27/2022 ceFAZolin (ANCEF) 2 g in dextrose 100 mL premix IVPB (COMPLETED) 2 g, Intravenous, Administer over 30 Minutes, LABOR CUSTODIAN TO PROCEDURE, 1 dose, Starting on Thu05/27/22 at 0556, Until Discontinued, Other, surgical prophylaxis, Initiate antibiotic administration 30-60 minutes prior to surgical incision and complete administration prior to surgical incision., Pre-op/Pre-Proc 0830 (Given - Provid er: Franca Bautista MD) haloperidol lactate (HALDOL) injection 1 mg (COMPLETED) 1 mg, Intravenous, ONCE NEEDED, 1 dose, Starting on Thu05/27/22 at 1051, Until Thu05/27/22 at 2359, Nausea, SECOND Line Agent, Recovery 1258 (Given - Provid er: Abby Vidal RN) HYDROmorphone (DILAUDID) injection 0.2 mg(Linked Group 2) 0.2 mg, Intravenous, EVERY 10 MINUTES NEEDED, Starting on Thu05/27/22 at 1051, Until Thu05/27/22 at 1618, Severe Pain, If patient NOT tolerating PO, Use as initial dose. Higher dose may be administered if lower dose did not result in adverse effects (RR<10, decrease in level of consciousness) and was previously documented as ineffective. May give a total of 4mg in PACU, Recovery HYDROmorphone (DILAUDID) injection 0.5 mg(Linked Group 2) 0.5 mg, Intravenous, EVERY 10 MINUTES NEEDED, Starting on Thu05/27/22 at 1051, Until Thu05/27/22 at 1618, Severe Pain, If patient NOT tolerating PO, Higher dose may be administered if lower dose did not result in adverse effects (RR<10, decrease in level of consciousness) and was previously documented as ineffective. Decrease back to lower dose if patient has adverse effects, or no PRN used in previous 30 minutes. May give a total of 4mg in PACU, Recovery lidocaine 1% (PF) (XYLOCAINE MPF) 1 % injection 0.1-0.3 mL 0.1-0.3 mL, Infiltration, ONCE NEEDED, 1 dose, Starting on Thu05/27/22 at 0556, Until Thu05/27/22 at 1618, Other, For Peripheral IV insertion, For Peripheral insertion, Pre-op/Pre-Proc mupirocin (BACTROBAN) 2 % ointment (CANCELED) NEEDED, Starting on Thu05/27/22 at 1026, Until Thu05/27/22 at 1100, Intra-op/Intra-Proc 1026 (Given - Provid er: Jose Francisco Coughlin MD) ondansetron 4mg/2ml (ZOFRAN) injection 4 mg 4 mg, Intravenous, EVERY 4 HOURS NEEDED, Starting on Thu05/27/22 at 1223, Until Thu05/27/22 at 1618, Nausea / Vomiting, 1st Line Nausea / Vomiting, Post-op/Post-Proc oxyCODONE (ROXICODONE) tablet 10 mg(Linked Group 3) 10 mg, Oral, EVERY 4 HOURS NEEDED, Starting on Thu05/27/22 at 1051, Until Thu05/27/22 at 1618, Severe Pain, FIRST line, If patient tolerating PO, Higher dose may be administered if lower dose did not result in adverse effects (RR<10,decrease in level of consciousness ) and was previously documented as ineffective. Decrease back to lower dose if patient has adverse effects, or no PRN used in previous 4 hours., Recovery oxyCODONE (ROXICODONE) tablet 5 mg(Linked Group 3) 5 mg, Oral, EVERY 4 HOURS NEEDED, Starting on Thu05/27/22 at 1051, Until Thu05/27/22 at 1618, Severe Pain, FIRST LINE If patient tolerating PO, Use as initial dose. Higher dose may be administered if lower dose did not result in adverse effects (RR<10, decrease in level of consciousness) and was previously documented as ineffective., Recovery prochlorperazine (COMPAZINE) injection 5 mg 5 mg, Intravenous, Administer over 5 Minutes, ONCE NEEDED, 1 dose, Starting on Thu05/27/22 at 1051, Until Thu05/27/22 at 1618, Nausea / Vomiting, FIRST Line Agent, For IV route: dilute dose with 10mL normal saline and give by slow IV push at a rate of 5mg/min. Maximum of 40mg/day., Recovery promethazine (PHENERGAN) injection 12.5 mg 12.5 mg, Intravenous, EVERY 6 HOURS NEEDED, Starting on Thu05/27/22 at 1223, Until Thu05/27/22 at 1618, Nausea / Vomiting, 2nd Line Nausea / Vomiting, Extravasation Risk. If given via IV route: dilute dose with 10mL normal saline and inject through a running IV or line over 5 minutes OR if no active IV or line is saline-dwelled dilute dose with 20mL normal saline and administer over 5 minutes. AVOID Intra-arterial administration; necrosis & gangrene have resulted. Hand, wrist or foot veins SHOULD BE AVOIDED., Post-op/Post-Proc sodium chloride 0.9 % irrigation (CANCELED) NEEDED, Starting on Thu05/27/22 at 1026, Until Thu05/27/22 at 1100, Intra-op/Intra-Proc 1026 (Given - Provid er: Jose Francisco Coughlin MD) Linked Groups Order Group 1: scopolamine (TRANSDERM-SCOP) patch 1 patchJump to med 1 patch, Transdermal, EVERY 72 HOURS, First dose on Thu05/27/22 at 0830, Until Discontinued
Apply patch to site behind the ear. Rotate sites for each application. Do not cut or alter patch. Each patch delivers 1 mg over 72 hours.
Pre-op/Pre-Proc And VERIFY LINKED PATCH PLACEMENTJump to med Other, EVERY 12 HOURS, First dose on Thu05/27/22 at 0900, Until Discontinued
Confirm continued adhesion of scopolamine 1.5 mg/72hr patch at documented site.
Group 2: HYDROmorphone (DILAUDID) injection 0.2 mgJump to med 0.2 mg, Intravenous, EVERY 10 MINUTES NEEDED, Starting on Thu05/27/22 at 1051, Until Thu05/27/22 at 1618, Severe Pain, If patient NOT tolerating PO
Use as initial dose. Higher dose may be administered if lower dose did not result in adverse effects (RR<10, decrease in level of consciousness) and was previously documented as ineffective. May give a total of 4mg in PACU
Recovery Or HYDROmorphone (DILAUDID) injection 0.5 mgJump to med 0.5 mg, Intravenous, EVERY 10 MINUTES NEEDED, Starting on Thu05/27/22 at 1051, Until Thu05/27/22 at 1618, Severe Pain, If patient NOT tolerating PO
Higher dose may be administered if lower dose did not result in adverse effects (RR<10, decrease in level of consciousness) and was previously documented as ineffective. Decrease back to lower dose if patient has adverse effects, or no PRN used in previous 30 minutes. May give a total of 4mg in PACU
Recovery Group 3: oxyCODONE (ROXICODONE) tablet 5 mgJump to med 5 mg, Oral, EVERY 4 HOURS NEEDED, Starting on Thu05/27/22 at 1051, Until Thu05/27/22 at 1618, Severe Pain, FIRST LINE If patient tolerating PO
Use as initial dose. Higher dose may be administered if lower dose did not result in adverse effects (RR<10, decrease in level of consciousness) and was previously documented as ineffective.
Recovery Or oxyCODONE (ROXICODONE) tablet 10 mgJump to med 10 mg, Oral, EVERY 4 HOURS NEEDED, Starting on Thu05/27/22 at 1051, Until Thu05/27/22 at 1618, Severe Pain, FIRST line, If patient tolerating PO
Higher dose may be administered if lower dose did not result in adverse effects (RR<10,decrease in level of consciousness ) and was previously documented as ineffective. Decrease back to lower dose if patient has adverse effects, or no PRN used in previous 4 hours.
Recovery Goals (unrecognized section and content) Goals may be documented in a n alternate section FOR RECORDS PERTAINING TO PATIENTS WHO ARE OR HAVE BEEN ENROLLED IN A CHEMICAL DEPENDENCY/SUBSTANCEABUSE PROGRAM, SOME INFORMATION MAY BE OMITTED. This clinical summary was aggregated from multiple sources. Caution should be exercised in using it in the provision of clinical care. This summary normalizes information from multiple sources, and as a consequence, information in this document may materially change the coding, format and clinical context of patient data. In addition, data may be omitted in some cases. CLINICAL DECISIONS SHOULD BE BASED ON THE PRIMARY CLINICAL RECORDS. [employer] provides no warranty or guarantee of the accuracy or completeness of information in this document.
[2025-02-11 11:17] VITALS: BP 151/100; PULSE 90
[2025-02-11 11:30] VITALS: PULSE 90
[2025-02-11 12:00] VITALS: BP 144/96; PULSE 90; RESP 13; O2SAT 100
[2025-02-11 12:34] VITALS: BP 144/96; PULSE 86; RESP 16; TEMP 36.7; O2SAT 100
== END 2025-02-11 12:35 | disposition home or self-care (01) ==
PROVIDERS: Emergency Provider Emergency Medicine; PCP Student in an Organized Health Care Education/Training Program; Visit Provider Emergency Medicine
DX: L27.1 Localized skin eruption due to drugs and medicaments taken internally (principal); R00.0 Tachycardia, unspecified; T36.8X5A Adverse effect of other systemic antibiotics, initial encounter; F41.9 Anxiety disorder, unspecified; F32.A Depression, unspecified; E78.00 Pure hypercholesterolemia, unspecified; Z90.11 Acquired absence of right breast and nipple; Z85.3 Personal history of malignant neoplasm of breast; Z87.440 Personal history of urinary (tract) infections; Z79.899 Other long term (current) drug therapy
CPT/HCPCS: 96361; 96374; 96375; 99284; A4216